=== PATIENT | male | born 1940 | race African-American/Black ===

== ENCOUNTER → 2019-06-09 | Outpatient (CLI) | payer BC, MEDICARE ==
[~2019-06-09] MED LIST: ACET325T9 PO; ACET500T33 PO; ACET500T68 PO; ALLO100T PO; AMLO10TA8 PO; AMLO5TAB10 PO; AMMO225L8 TP; AMMO226L TP; AMOX1TAB10 PO; ASPI-612 PO; ASPI-630 PO; ASPI81TA50 PO; ATOR40TA PO; ATOR40TA59 PO; ATORVASTATIN CA80 MG PO; BISA10SU4 RC; BISA10SU55 RC; CALC0.5C8 PO; CARV12.511 PO; CARV25TA2 PO; CARV3.1210 PO; CEPH250C PO; CHOL10003 PO; CHOL2000 PO; CHOL200074 PO; CLIN150C14 PO; CLON0.1T12 PO; CLOP75TA PO; CYAN-25 PO; DAPT350V IV; DIPH-121 PO; FOLI0.8T21 PO; FOLI1CAP10 PO; FURO20TA3 PO; FURO40TA4 PO; FURO80TA3 PO; GUAI-108 PO; HUM100VI5 SQ; HYDR-2761 PO; HYDR-3164 PO; INSU100I11 SQ; INSU100I16 SQ; INSU100V SQ; IPRA3AMP29 NEB; LACT1CAP19 PO; LACT1CAP48 PO; LACT1CAP6 PO; LINE600T37 PO; LISI10TA2 PO; LOSA-73 PO; MAGN400O7 PO; MERO500V15 IV; METO10TA81 PO; METO5TAB PO; OMEP20CA10 PO; OMEP20TA8 PO; OMEP40CA5 PO; ONDA4TAB12 PO; ONDA4TAB7 PO; PANT20TA2 PO; PANT40TA77 PO; PRED-220 PO; PREG25CA PO; PREG50CA PO; Pantoprazole PO; SENN-80 PO; SENN1TAB15 PO; SENN1TAB99 PO; SEVE800T9 PO; TRAM50TA PO; WARF-31 PO; WARF-78 PO; WARF2TAB PO; WARF3TAB50 PO; WARF6TAB47 PO
[2019-06-09 10:54] LABS: BILIRUBIN,URINE NEGATIVE (NEG); CLARITY,URINE TURBID; COLOR,URINE YELLOW; NITRITE,URINE NEGATIVE (NEG); PH,URINE 7.5; PROTEIN,URINE >=300 mg/dL (NEG-TRACE); UROBILINOGEN,URINE 0.2 mg/dL (0.2 mg/dL)
[2019-06-09 11:17] LABS: BACTERIA,URINE MANY /HPF (0-FEW); SQUAMOUS EPITHELIAL CELL,UR FEW /LPF; WBC,URINE TNTC /HPF (0-4)
== END | disposition home or self-care (01) ==
LOC: SPEC 10:40
PROVIDERS: ATTEND Internal Medicine
DX: I12.0 Hypertensive chronic kidney disease with stage 5 chronic kidney disease or end stage renal disease (principal); N18.6 End stage renal disease
CPT/HCPCS: 81001; 87086

== ENCOUNTER 2019-06-22 10:04 | Inpatient (IN) | payer BC, MEDICARE, OTHER ==
[~2019-06-22] VITALS: Ht 165.1 cm; Wt 82.7 kg
[~2019-06-22 10:04] MED LIST changes: -INSU100V SQ; +INSU100V6 SQ
[2019-06-22] MEDS ORDERED: IV NORMAL SALINE 1000ML BAG 1,000 ML IV SCH (10:38)
[2019-06-22] MEDS ORDERED: VANCOMYCIN 1GM IVPB FOR OMNI 250 ML IV ONE (10:45)
[2019-06-22] MEDS ORDERED: PIPERACILLIN/TAZOBACTAM 2.25 GM in IV NORMAL SALINE 50ML 50 ML IV ONE (10:45)
--- NOTE | 2019-06-22 10:54 | PHYS DOC ---
Past Medical History Past Medical History: A-Fib, Diabetes-Type II, Hypertension, Renal Failure Additional Past Medical Histor: ESRD Past Surgical History: Pacemaker Additional Past Surgical Histo: bilateral BKA, AV fistula Social History Patient lives in a care home. Adult General HPI HPI Patient is a 78-year-old male who presents to the emergency department via EMS for altered mental status. According to EMS report, the patient, usually responds by grunting to staff, was less responsive than normal today, and there is also a wound on his left BKA, where there is concern for infection. The patient is not able to provide any meaningful history, he will shake yes and no in response to some basic questions, but is not able to provide a meaningful history. Review of Systems Review of Systems Review of systems Limited secondary to patient not being able to provide a meaningful history. Per report, there has been no increasing difficulty breathing, vomiting, or noted fever, Current Medications Current Medications Current Medications Medications (Trade) Dose Ordered Sig/Mitzi Start Time Stop Time Status Last Admin Dose Admin Piperacillin Sod/ Tazobactam Sod 2.25 gm/Sodium Chloride 50 ml @ 100 mls/hr 1X ONCE 06/22/19 10:45 06/22/19 11:14 DC 06/22/19 11:55 100 MLS/HR Sodium Chloride 1,000 ml @ 100 mls/hr Q10H 06/22/19 10:38 06/22/19 20:37 06/22/19 11:55 100 MLS/HR Vancomycin HCl 250 ml @ 250 mls/hr 1X ONCE 06/22/19 10:45 06/22/19 11:44 UNV Vancomycin HCl 2 gm/Sodium Chloride 500 ml @ 250 mls/hr 1X ONCE 06/22/19 11:30 06/22/19 13:29 DC 06/22/19 12:32 250 MLS/HR Allergies Allergies Allergies Coded Allergies Type Severity Reaction Last Updated Verified No Known Drug Allergies 06/22/19 No Physical Exam Physical Exam PHYSICAL EXAM: CONSTITUTIONAL: Well developed, well nourished HEAD: normocephalic, atraumatic EENT: PERRL, EOMI. Conjunctivae normal color, sclerae non-icteric; moist mucous membranes. NECK: Supple, non-tender; no meningismus. LUNGS: Lungs CTA, breathing is mildly labored. Normal air movement. HEART: Regular rate and rhythm, no murmur CHEST: No deformity; non-tender ABDOMEN: The abdomen is soft, there is mild diffuse tenderness to palpation to the entire abdomen, without focal tenderness, rebound, or guarding , no masses or bruits. EXTREM: Normal ROM; no deformity, no calf tenderness. Weak pulses palpable in all extremities. There is no pedal edema. There is an AV fistula in the right upper extremity. There has been a BKA bilaterally. The right BKA stump is clean, on the left BKA stump laterally there is an approximately nickel sized wound, which appears to extend into the muscle, with some surrounding erythema, without active purulence. SKIN: No rash; no diaphoresis NEURO: Patient is weak, limited movement of all extremities, will shake his head or grunting yes or no to some basic questions but is not able to reliably provide a history. BACK: No CVA TTP. Current Patient Data Vital Signs Vital Signs Date Time Temp Pulse Resp B/P (MAP) Pulse Ox O2 Delivery O2 Flow Rate FiO2 06/22/19 10:54 98.1 78 16 125/64 (84) 95 Room Air 98.1 Lab Values Laboratory Tests Test 06/22/19 10:40 06/22/19 11:35 06/22/19 11:50 White Blood Count 10.5 x10^3/uL (4.0-11.0) Red Blood Count 3.54 x10^6/uL (4.30-5.70) L Hemoglobin 10.1 g/dL (13.0-17.5) L Hematocrit 31.0 % (39.0-53.0) L Mean Corpuscular Volume 88 fL (79-100) Mean Corpuscular Hemoglobin 29 pg (25-35) Mean Corpuscular Hemoglobin Concent 33 g/dL (31-37) Red Cell Distribution Width 18.6 % (11.5-14.5) H Platelet Count 407 x10^3/uL (140-400) H Neutrophils (%) (Auto) 70 % (31-73) Lymphocytes (%) (Auto) 14 % (24-48) L Monocytes (%) (Auto) 9 % (0-9) Eosinophils (%) (Auto) 6 % (0-3) H Basophils (%) (Auto) 1 % (0-3) Neutrophils # (Auto) 7.4 x10^3/uL (1.8-7.7) Lymphocytes # (Auto) 1.4 x10^3/uL (1.0-4.8) Monocytes # (Auto) 0.9 x10^3/uL (0.0-1.1) Eosinophils # (Auto) 0.7 x10^3/uL (0.0-0.7) Basophils # (Auto) 0.1 x10^3/uL (0.0-0.2) Erythrocyte Sedimentation Rate 128 (0-15) H Urine Collection Type U cath Urine Color Red Urine Clarity Turbid Urine pH Urine Specific [place] Urine Protein mg/dL (NEG-TRACE) Urine Glucose (UA) mg/dL (NEG) Urine Ketones (Stick) mg/dL (NEG) Urine Blood (NEG) Urine Nitrite (NEG) Urine Bilirubin (NEG) Urine Urobilinogen Dipstick mg/dL (0.2 mg/dL) Urine Leukocyte Esterase (NEG) Urine RBC >40 /HPF (0-2) Urine WBC Tntc /HPF (0-4) Urine Bacteria Many /HPF (0-FEW) Prothrombin Time 19.7 SEC (11.7-14.0) H Prothrombin Time INR 1.7 (0.8-1.1) H Sodium Level 141 mmol/L (136-145) Potassium Level 4.4 mmol/L (3.5-5.1) Chloride Level 96 mmol/L (98-107) L Carbon Dioxide Level 36 mmol/L (21-32) H Anion Gap 9 (6-14) Blood Urea Nitrogen 78 mg/dL (8-26) H Creatinine 7.1 mg/dL (0.7-1.3) H Estimated GFR (Cockcroft-Gault) 9.1 BUN/Creatinine Ratio 11 (6-20) Glucose Level 149 mg/dL (70-99) H Lactic Acid Level 1.3 mmol/L (0.4-2.0) Calcium Level 9.3 mg/dL (8.5-10.1) Magnesium Level 2.1 mg/dL (1.8-2.4) Total Bilirubin 0.5 mg/dL (0.2-1.0) Aspartate Amino Transferase (AST) 29 U/L (15-37) Alanine Aminotransferase (ALT) 20 U/L (16-63) Alkaline Phosphatase 162 U/L (46-116) H Troponin I Quantitative 0.293 ng/mL (0.000-0.055) C-Reactive Protein, Quantitative 185.7 mg/L (0-3.3) H Total Protein 7.1 g/dL (6.4-8.2) Albumin 2.1 g/dL (3.4-5.0) L Albumin/Globulin Ratio 0.4 (1.0-1.7) L Laboratory Tests 06/22/19 10:40 Laboratory Tests 06/22/19 11:50 EKG EKG Probable underlying atrial fibrillation at a rate of 70 beats for minute, left axis deviation, left anterior fascicular block, lateral T wave inversion, with nonspecific ST/T changes, there is no old EKG available for comparison.] Radiology/Procedures Radiology/Procedures [PROCEDURE: CT HEAD WO CONTRAST Examination: CT HEAD WO CONTRAST History: Altered mental status Comparison/Correlation: None Findings: Axial images of the head were obtained without contrast. Advanced atrophy and chronic ischemic changes white matter noted. No intracranial hemorrhage, midline shift, or mass effect. Bony structures are intact. Right sphenoid sinus opacification noted. Opacification of posterior aspect of right ethmoid air cells suggested. Cavernous carotid calcification noted. Impression: No intracranial hemorrhage. Advanced atrophy and chronic ischemic change. Chronic paranasal sinusitis. PQRS Compliance Statement: One or more of the following individualized dose reduction techniques were utilized for this examination: 1. Automated exposure control 2. Adjustment of the mA and/or kV according to patient size 3. Use of iterative reconstruction technique] PROCEDURE: PORTABLE CHEST 1V PORTABLE CHEST 1V History: Altered mental status Comparison: April 21, 2019 Findings: Enlarged cardiac silhouette, unchanged. Patchy bibasilar subsegmental atelectasis. No pleural effusion. Vascular stent projecting over the right upper chest, unchanged. Left sided pacemaker, unchanged. Impression: 1. Low lung volumes with bibasilar subsegmental atelectasis. PROCEDURE: CT ABDOMEN PELVIS WO CONTRAST Examination: CT ABDOMEN PELVIS WO CONTRAST History: Altered mental status, sepsis, abdominal tenderness Comparison/Correlation: None Findings: Axial images of the abdomen and pelvis were obtained without contrast. Sagittal and coronal reformatted images were provided. Respiratory motion limits evaluation of the lung bases. The upper extremities are besides the patient and as result associated streak artifact may limit assessment. Pacemaker lead is identified in the right ventricle. Marked coronary arterial calcification is evident. Subtle patchy interstitial infiltrates involving the posterior right lung base noted. Unenhanced liver, spleen, pancreas, and adrenal glands are unremarkable. Multiple small calculi present within the dependent aspect of the gallbladder. No biliary dilatation. Small proximal duodenal diverticulum is questioned. Left renal cysts are present. Moderate quantity of stool in the colon noted. Moderate distention of the rectum with stool noted. No inflammatory change about the cecum. Diverticulosis of the colon is evident. No extraluminal gas or bowel obstruction. No enlarged abdominal or pelvic lymph nodes. Urinary bladder is identified to have mild circumferential wall thickening and minimal surrounding stranding. Significant arterial calcification is noted involving the abdominal aorta, iliac arteries, and visualized femoral arteries. Multilevel degenerative space narrowing is noted. Impression: Cholelithiasis without findings of cholecystitis. Urinary bladder wall thickening with subtle surrounding stranding raises question of cystitis. Subtle patchy interstitial infiltrates primarily at the right lung base. PROCEDURE: TIBIA FIBULA LEFT Two-view study left tibia and fibula Clinical indications: [id number]-[id number] amputation. Possible stump infection. FINDINGS: A below the knee left leg amputation is evident. No lytic process is seen. No acute fracture or dislocation is seen. 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 Soft tissue swelling is seen. No soft tissue air is evident. Surgical clips are seen within the distal stump. Calcified atheromatous arterial disease is seen. IMPRESSION: No acute osseous abnormality. Course & Med Decision Making Course & Med Decision Making Pertinent Labs and Imaging studies reviewed. (See chart for details) [] 1:40 PM: The patient's condition remains stable. I was finally able to get a hold of the patient's PCP, whom I spoke with prior to the patient's arrival, and he will admit the patient, and requested consultation from infectious disease as well as nephrology, as the patient is due for dialysis today. Dragon Disclaimer Dragon Disclaimer This electronic medical record was generated, in whole or in part, using a voice recognition dictation system. Departure Departure Impression: Primary Impression: UTI (urinary tract infection) Additional Impressions: ESRD (end stage renal disease) Altered mental status Disposition: 09 ADMITTED INPATIENT Admitting Physician: Ronen Gonzáles Condition: GUARDED Referrals: ROENN GONZÁLES MD (PCP) Problem Qualifiers PRANAV ESTRADA MD Jun 22, 2019 10:54
[2019-06-22 11:08] LABS: BASO # 0.1 x10^3/uL (0.0-0.2); BASO % 1 % (0-3); EOS # 0.7 x10^3/uL (0.0-0.7); EOS % 6 % (0-3); HEMOGLOBIN 10.1 g/dL (13.0-17.5); LYMPH # 1.4 x10^3/uL (1.0-4.8); LYMPH % 14 % (24-48); MEAN CORPUSCULAR HEMOGLOBIN 29 pg (25-35); MEAN CORPUSCULAR HGB CONC 33 g/dL (31-37); MEAN CORPUSCULAR VOLUME 88 fL (79-100); MONO # 0.9 x10^3/uL (0.0-1.1); MONO % 9 % (0-9); NEUT # 7.4 x10^3/uL (1.8-7.7); NEUT % 70 % (31-73); PLATELET COUNT 407 x10^3/uL (140-400); RED BLOOD COUNT 3.54 x10^6/uL (4.30-5.70); RED CELL DISTRIBUTION WIDTH 18.6 % (11.5-14.5); WHITE BLOOD COUNT 10.5 x10^3/uL (4.0-11.0)
--- NOTE | 2019-06-22 11:09 | RAD ---
PORTABLE CHEST 1V History: Altered mental status Comparison: April 21, 2019 Findings: Enlarged cardiac silhouette, unchanged. Patchy bibasilar subsegmental atelectasis. No pleural effusion. Vascular stent projecting over the right upper chest, unchanged. Left sided pacemaker, unchanged. Impression: 1. Low lung volumes with bibasilar subsegmental atelectasis. Electronically signed by: Yoshi Butts DO (06/22/2019 11:06 AM) [id number]
--- NOTE | 2019-06-22 11:27 | RAD ---
Two-view study left tibia and fibula Clinical indications: [id number]-[id number] amputation. Possible stump infection. FINDINGS: A below the knee left leg amputation is evident. No lytic process is seen. No acute fracture or dislocation is seen. 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 Soft tissue swelling is seen. No soft tissue air is evident. Surgical clips are seen within the distal stump. Calcified atheromatous arterial disease is seen. IMPRESSION: No acute osseous abnormality. Electronically signed by: Leno Kovacs MD (06/22/2019 11:24 AM) [place] [id number]
[2019-06-22] MEDS ORDERED: VANCOMYCIN 2 GM in IV NORMAL SALINE 500ML BAG 500 ML IV ONE (11:30)
--- NOTE | 2019-06-22 11:30 | RAD ---
Examination: CT HEAD WO CONTRAST History: Altered mental status Comparison/Correlation: None Findings: Axial images of the head were obtained without contrast. Advanced atrophy and chronic ischemic changes white matter noted. No intracranial hemorrhage, midline shift, or mass effect. Bony structures are intact. Right sphenoid sinus opacification noted. Opacification of posterior aspect of right ethmoid air cells suggested. Cavernous carotid calcification noted. Impression: No intracranial hemorrhage. Advanced atrophy and chronic ischemic change. Chronic paranasal sinusitis. PQRS Compliance Statement: One or more of the following individualized dose reduction techniques were utilized for this examination: 1. Automated exposure control 2. Adjustment of the mA and/or kV according to patient size 3. Use of iterative reconstruction technique Electronically signed by: Jarred Moy MD (06/22/2019 11:27 AM) [facility]
--- NOTE | 2019-06-22 11:39 | RAD ---
Examination: CT ABDOMEN PELVIS WO CONTRAST History: Altered mental status, sepsis, abdominal tenderness Comparison/Correlation: None Findings: Axial images of the abdomen and pelvis were obtained without contrast. Sagittal and coronal reformatted images were provided. Respiratory motion limits evaluation of the lung bases. The upper extremities are besides the patient and as result associated streak artifact may limit assessment. Pacemaker lead is identified in the right ventricle. Marked coronary arterial calcification is evident. Subtle patchy interstitial infiltrates involving the posterior right lung base noted. Unenhanced liver, spleen, pancreas, and adrenal glands are unremarkable. Multiple small calculi present within the dependent aspect of the gallbladder. No biliary dilatation. Small proximal duodenal diverticulum is questioned. Left renal cysts are present. Moderate quantity of stool in the colon noted. Moderate distention of the rectum with stool noted. No inflammatory change about the cecum. Diverticulosis of the colon is evident. No extraluminal gas or bowel obstruction. No enlarged abdominal or pelvic lymph nodes. Urinary bladder is identified to have mild circumferential wall thickening and minimal surrounding stranding. Significant arterial calcification is noted involving the abdominal aorta, iliac arteries, and visualized femoral arteries. Multilevel degenerative space narrowing is noted. Impression: Cholelithiasis without findings of cholecystitis. Urinary bladder wall thickening with subtle surrounding stranding raises question of cystitis. Subtle patchy interstitial infiltrates primarily at the right lung base. PQRS Compliance Statement: One or more of the following individualized dose reduction techniques were utilized for this examination: 1. Automated exposure control 2. Adjustment of the mA and/or kV according to patient size 3. Use of iterative reconstruction technique Electronically signed by: Jarred Moy MD (06/22/2019 11:36 AM) [facility]
--- NOTE | 2019-06-22 11:47 | EKG ---
[facility] [address] [place] [address] Test Date: 2019-06-22 Test Time: 10:14:58 Pat Name: BARNEY GUZMAN Department: Room: Gender: M Managed Care Nurse: : 1940 Requested By: PRANAV ESTRADA Order Number: [id number] Reading MD: Ananda Cody MD Measurements Intervals [place] Rate: 69 P: MD: QRS: -52 QRSD: 110 T: 168 QT: 392 QTc: 426 Interpretive Statements ATRIAL FIBRILLATION ABNORMAL LEFT AXIS DEVIATION LEFT ANTERIOR FASCICULAR BLOCK LVH WITH REPOLARIZATION ABNORMALITY ABNORMAL ECG Electronically Signed On 07-12-2019 13:37:53 CDT by Ananda Cody MD
[2019-06-22 12:01] LABS: CLARITY,URINE TURBID; COLOR,URINE RED
[2019-06-22 12:04] LABS: RBC,URINE >40 /HPF (0-2)
[2019-06-22 12:05] LABS: BACTERIA,URINE MANY /HPF (0-FEW); WBC,URINE TNTC /HPF (0-4)
[2019-06-22 12:21] LABS: PROTHROMBIN TIME PATIENT 19.7 SEC (11.7-14.0)
[2019-06-22 12:30] LABS: CALCIUM 9.3 mg/dL (8.5-10.1); CREATININE 7.1 mg/dL (0.7-1.3); GFR 9.1; POTASSIUM 4.4 mmol/L (3.5-5.1)
[2019-06-22 12:38] LABS: ALBUMIN 2.1 g/dL (3.4-5.0); ALBUMIN/GLOBULIN RATIO 0.4 (1.0-1.7); C-REACTIVE PROTEIN 185.7 mg/L (0-3.3); MAGNESIUM 2.1 mg/dL (1.8-2.4); TOTAL BILIRUBIN 0.5 mg/dL (0.2-1.0); TOTAL PROTEIN 7.1 g/dL (6.4-8.2)
[2019-06-22] MEDS ORDERED: DIALYSIS PATIENT. MC PRN ×2 (16:30)
--- NOTE | 2019-06-22 17:20 | PDOC2 ---
CONSULT Date of Consult Date of Consult DATE: 06/22/19 TIME: 17:14 Reason for Consult Reason for Consult: ESRD Referring Physician Referring Physician: BENJAMÍN Identification/Chief Complaint Chief Complaint CONFUSION Source Source: Chart review History of Present Illness Reason for Visit: THIS IS A 78 YR OLD ESRD PT WITH CONFUSION. HE HAS OP HD ON MWF. UA IS TURBID AND CLEARLY INFECTED. ALSO NOTED TO HAVE LEUCOCYTOSIS AND HE HAS A RECENT LEFT BKA AND INFECTION RELATED TO THAT. LABS ARE C/W HIS ESRD STATUS. HE IS USUALLY ALERT AND ORIENTED AT BASELINE BUT HAS HAD A SIGNIFICANT DECLINE IN HIS OVERALL HEALTH OVER THE LAST ONE YEAR. BRAIN IMAGING NEG FOR ANYTHING ACUTE. ESRD IS DUE TO DM II AND HTN HX Past Medical History Cardiovascular: HTN GI: Constipation Heme/Onc: Anemia NOS Psych: Depression Renal/: Chronic renal failure Endocrine: Diabetes, Hyperparathyroidism Past Surgical History Past Surgical History AV ACCESS. HX OF TDC. HX OF LE BKA Family History Family History: No Significant Social History No ALCOHOL: none Drugs: None Lives: Group Home Current Problem List Problem List Problems Medical Problems: (1) Altered mental status Status: Acute (2) ESRD (end stage renal disease) Status: Acute (3) UTI (urinary tract infection) Status: Acute Current Medications Current Medications Current Medications Vancomycin HCl 250 ml @ 250 mls/hr 1X ONCE IV ; Start 06/22/19 at 10:45; Stop 06/22/19 at 11:44; Status UNV Piperacillin Sod/ Tazobactam Sod 2.25 gm/Sodium Chloride 50 ml @ 100 mls/hr 1X ONCE IV Last administered on 06/22/19at 11:55; Start 06/22/19 at 10:45; Stop 06/22/19 at 11:14; Status DC Sodium Chloride 1,000 ml @ 100 mls/hr Q10H IV Last administered on 06/22/19at 11:55; Start 06/22/19 at 10:38; Stop 06/22/19 at 20:37 Vancomycin HCl 2 gm/Sodium Chloride 500 ml @ 250 mls/hr 1X ONCE IV Last administered on 06/22/19at 12:32; Start 06/22/19 at 11:30; Stop 06/22/19 at 13:29; Status DC Info (PHARMACY MONITORING -- do not chart) 1 each PRN DAILY PRN MC SEE COMMENTS; Start 06/22/19 at 16:30 Info (PHARMACY MONITORING -- do not chart) 1 each PRN DAILY PRN MC SEE COMMENTS; Start 06/22/19 at 16:30; Status UNV Allergies Allergies: Coded Allergies: No Known Drug Allergies (Unverified , 06/22/19) ROS Review of System UNABLE TO OBTAIN Physical Exam General: No acute distress HEENT: Atraumatic, Mucous membr. moist/pink Lungs: Clear to auscultation Heart: Regular rate, Normal S1, Normal S2 Abdomen: Normal bowel sounds, Soft Extremities: No edema Skin: Other (BKA SITE DRESSING DRAINAGE) MUSCULOSKELETAL: No deformity Vitals VITALS Vital Signs Date Time Temp Pulse Resp B/P (MAP) Pulse Ox O2 Delivery O2 Flow Rate FiO2 06/22/19 10:54 98.1 78 16 125/64 (84) 95 Room Air 98.1 Labs Labs Laboratory Tests Test 06/22/19 10:40 06/22/19 11:35 06/22/19 11:50 06/22/19 16:05 White Blood Count 10.5 x10^3/uL (4.0-11.0) Red Blood Count 3.54 x10^6/uL (4.30-5.70) Hemoglobin 10.1 g/dL (13.0-17.5) Hematocrit 31.0 % (39.0-53.0) Mean Corpuscular Volume 88 fL (79-100) Mean Corpuscular Hemoglobin 29 pg (25-35) Mean Corpuscular Hemoglobin Concent 33 g/dL (31-37) Red Cell Distribution Width 18.6 % (11.5-14.5) Platelet Count 407 x10^3/uL (140-400) Neutrophils (%) (Auto) 70 % (31-73) Lymphocytes (%) (Auto) 14 % (24-48) Monocytes (%) (Auto) 9 % (0-9) Eosinophils (%) (Auto) 6 % (0-3) Basophils (%) (Auto) 1 % (0-3) Neutrophils # (Auto) 7.4 x10^3/uL (1.8-7.7) Lymphocytes # (Auto) 1.4 x10^3/uL (1.0-4.8) Monocytes # (Auto) 0.9 x10^3/uL (0.0-1.1) Eosinophils # (Auto) 0.7 x10^3/uL (0.0-0.7) Basophils # (Auto) 0.1 x10^3/uL (0.0-0.2) Erythrocyte Sedimentation Rate 128 (0-15) Urine Collection Type U cath Urine Color Red Urine Clarity Turbid Urine pH Urine Specific [place] Urine Protein mg/dL (NEG-TRACE) Urine Glucose (UA) mg/dL (NEG) Urine Ketones (Stick) mg/dL (NEG) Urine Blood (NEG) Urine Nitrite (NEG) Urine Bilirubin (NEG) Urine Urobilinogen Dipstick mg/dL (0.2 mg/dL) Urine Leukocyte Esterase (NEG) Urine RBC >40 /HPF (0-2) Urine WBC Tntc /HPF (0-4) Urine Bacteria Many /HPF (0-FEW) Prothrombin Time 19.7 SEC (11.7-14.0) Prothromb Time International Ratio 1.7 (0.8-1.1) Sodium Level 141 mmol/L (136-145) Potassium Level 4.4 mmol/L (3.5-5.1) Chloride Level 96 mmol/L (98-107) Carbon Dioxide Level 36 mmol/L (21-32) Anion Gap 9 (6-14) Blood Urea Nitrogen 78 mg/dL (8-26) Creatinine 7.1 mg/dL (0.7-1.3) Estimated GFR (Cockcroft-Gault) 9.1 BUN/Creatinine Ratio 11 (6-20) Glucose Level 149 mg/dL (70-99) Lactic Acid Level 1.3 mmol/L (0.4-2.0) Calcium Level 9.3 mg/dL (8.5-10.1) Magnesium Level 2.1 mg/dL (1.8-2.4) Total Bilirubin 0.5 mg/dL (0.2-1.0) Aspartate Amino Transf (AST/SGOT) 29 U/L (15-37) Alanine Aminotransferase (ALT/SGPT) 20 U/L (16-63) Alkaline Phosphatase 162 U/L (46-116) Troponin I Quantitative 0.293 ng/mL (0.000-0.055) 0.217 ng/mL (0.000-0.055) C-Reactive Protein, Quantitative 185.7 mg/L (0-3.3) Total Protein 7.1 g/dL (6.4-8.2) Albumin 2.1 g/dL (3.4-5.0) Albumin/Globulin Ratio 0.4 (1.0-1.7) Laboratory Tests Test 06/22/19 10:40 06/22/19 11:35 06/22/19 11:50 06/22/19 16:05 White Blood Count 10.5 x10^3/uL (4.0-11.0) Red Blood Count 3.54 x10^6/uL (4.30-5.70) Hemoglobin 10.1 g/dL (13.0-17.5) Hematocrit 31.0 % (39.0-53.0) Mean Corpuscular Volume 88 fL (79-100) Mean Corpuscular Hemoglobin 29 pg (25-35) Mean Corpuscular Hemoglobin Concent 33 g/dL (31-37) Red Cell Distribution Width 18.6 % (11.5-14.5) Platelet Count 407 x10^3/uL (140-400) Neutrophils (%) (Auto) 70 % (31-73) Lymphocytes (%) (Auto) 14 % (24-48) Monocytes (%) (Auto) 9 % (0-9) Eosinophils (%) (Auto) 6 % (0-3) Basophils (%) (Auto) 1 % (0-3) Neutrophils # (Auto) 7.4 x10^3/uL (1.8-7.7) Lymphocytes # (Auto) 1.4 x10^3/uL (1.0-4.8) Monocytes # (Auto) 0.9 x10^3/uL (0.0-1.1) Eosinophils # (Auto) 0.7 x10^3/uL (0.0-0.7) Basophils # (Auto) 0.1 x10^3/uL (0.0-0.2) Erythrocyte Sedimentation Rate 128 (0-15) Urine Collection Type U cath Urine Color Red Urine Clarity Turbid Urine pH Urine Specific [place] Urine Protein mg/dL (NEG-TRACE) Urine Glucose (UA) mg/dL (NEG) Urine Ketones (Stick) mg/dL (NEG) Urine Blood (NEG) Urine Nitrite (NEG) Urine Bilirubin (NEG) Urine Urobilinogen Dipstick mg/dL (0.2 mg/dL) Urine Leukocyte Esterase (NEG) Urine RBC >40 /HPF (0-2) Urine WBC Tntc /HPF (0-4) Urine Bacteria Many /HPF (0-FEW) Prothrombin Time 19.7 SEC (11.7-14.0) Prothromb Time International Ratio 1.7 (0.8-1.1) Sodium Level 141 mmol/L (136-145) Potassium Level 4.4 mmol/L (3.5-5.1) Chloride Level 96 mmol/L (98-107) Carbon Dioxide Level 36 mmol/L (21-32) Anion Gap 9 (6-14) Blood Urea Nitrogen 78 mg/dL (8-26) Creatinine 7.1 mg/dL (0.7-1.3) Estimated GFR (Cockcroft-Gault) 9.1 BUN/Creatinine Ratio 11 (6-20) Glucose Level 149 mg/dL (70-99) Lactic Acid Level 1.3 mmol/L (0.4-2.0) Calcium Level 9.3 mg/dL (8.5-10.1) Magnesium Level 2.1 mg/dL (1.8-2.4) Total Bilirubin 0.5 mg/dL (0.2-1.0) Aspartate Amino Transf (AST/SGOT) 29 U/L (15-37) Alanine Aminotransferase (ALT/SGPT) 20 U/L (16-63) Alkaline Phosphatase 162 U/L (46-116) Troponin I Quantitative 0.293 ng/mL (0.000-0.055) 0.217 ng/mL (0.000-0.055) C-Reactive Protein, Quantitative 185.7 mg/L (0-3.3) Total Protein 7.1 g/dL (6.4-8.2) Albumin 2.1 g/dL (3.4-5.0) Albumin/Globulin Ratio 0.4 (1.0-1.7) Assessment/Plan Assessment/Plan IMP UTI ? INFECTED BKA STUMP ANEMIA DM II HTN ESRD MET ENCEPHALOPATHY PLAN NEEDS ANTIBIOTICS HD TODAY UF TO DW SHERYL WILL FOLLOW NANCY LIU MD Jun 22, 2019 17:20
[2019-06-22] MEDS ORDERED: ONDANSETRON PF 4 MG/2 ML VIAL. IV PRN (17:30)
[2019-06-22] MEDS ORDERED: PIP/TAZO PER PHARMACY MC PRN (17:30)
[2019-06-22] MEDS ORDERED: ACETAMINOPHEN 325 MG TABLET. PO PRN (17:30)
--- NOTE | 2019-06-22 17:41 | PDOC ---
Provider Note Provider Note history and physical dictated # [id number] SAM OLMOS MD Jun 22, 2019 17:41
[2019-06-22] MEDS: VANCOMYCIN PER PHARMACY MC PRN (17:46)
[2019-06-22 20:32] VITALS: BP 112/60
[2019-06-22] MEDS ORDERED: HEPARIN for SUB-Q USE 5,000 UNIT/ML VIAL. SQ SCH (21:00)
[2019-06-22] MEDS: IV 1/2 NORMAL SALINE 1,000 ML IV SCH (21:27)
[2019-06-22] MEDS: ATORVASTATIN CALCIUM 40 MG TABLET. PO SCH (21:28)
[2019-06-22] MEDS: PIPERACILLIN/TAZOBACTAM 2.25 GM in IV NORMAL SALINE 50ML 50 ML IV SCH (21:28)
--- NOTE | 2019-06-22 22:06 | HP ---
ADMIT DATE: 06/22/2019 LOCATION: He is in room 674. HISTORY OF PRESENT ILLNESS: The patient is a 78-year-old -[place] male, resident of a [facility], who is on hemodialysis Mondays, Wednesdays, and Fridays and has a history of diabetes mellitus type 2, peripheral arterial disease, chronic atrial fibrillation, and has had bilateral below-knee amputations. He had a left below-knee amputation in 04/2019 for nonhealing left lower extremity wound. The patient was sent to the [facility] Emergency Room due to altered mental status. He is usually able to maintain a conversation. In fact, I saw him last in [facility], he was able to converse and talking, and was doing fine. Today, I received a phone call from the wound care personnel that said that the patient was started on Augmentin recently and has an area of bogginess and softness involving the left below-knee amputation and there is possibility of an infection in that area. The patient was then sent to the [facility] Emergency Room where he was noted to have cloudy turbid urine and pyuria, and received also IV vancomycin and Zosyn in the Emergency Room. Blood and urine cultures were ordered. CAT scan of the head was negative. He had a CAT scan of the abdomen and pelvis, which showed some evidence of cystitis and cholelithiasis without acute cholecystitis. Also had an x-ray of his left tibia and fibula, which showed no acute abnormality. He had a chest x-ray, which showed no evidence of a lung infiltrate. He had some bibasilar subsegmental atelectasis. He was therefore admitted for further evaluation for his altered mental status, urinary tract infection and possible left below-knee amputation stump infection. ALLERGIES AND INTOLERANCES: None. MEDICATIONS: After look at the list from the [facility]; apparently, he is on allopurinol 100 mg every day, atorvastatin 40 mg at bedtime, Plavix 75 mg every day, vitamin B12 of 1000 mcg every day, Zofran 4 mg p.o. every 6 hours p.r.n., Protonix 40 mg every day, Nephro-Judah 1 every day, and I believe he is on Humalog insulin sliding scale before meals also. PAST MEDICAL HISTORY: Significant for a left below-knee amputation in 04/2019. He also has a previous right below-knee amputation. He has a history of severe peripheral arterial disease in the lower extremities. He also has a history of end-stage renal disease, on hemodialysis. He is on dialysis Mondays, Wednesdays and Fridays. Diabetes mellitus type 2 with peripheral neuropathy. He has anemia of chronic disease. Morbid obesity. 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 He also had a stent placed to his left femoral artery in the past. He has an amputation of left great toe in the past prior to his left below-knee amputation. He has a history of hyperlipidemia. SOCIAL HISTORY: He does not drink alcohol nor does he smoke cigarettes. Resides in a [facility]. FAMILY HISTORY: Noncontributory. REVIEW OF SYSTEMS: Unobtainable due to his altered mental status. PHYSICAL EXAMINATION: GENERAL: He was seen during hemodialysis. VITAL SIGNS: His temperature is 98.1 degrees, pulse 78, respiratory rate 16, blood pressure 125/64, and oxygen saturation 95% on room air. HEENT: Eyes are closed. He nods his head when I ask him questions, but did not talk to me. Mouth is symmetrical. NECK: No cervical lymphadenopathy. HEART: Reveals an S1, S2. There is no S3 or murmur. LUNGS: Clear. CHEST: He has got a shunt in the right upper extremity. He is currently receiving hemodialysis. ABDOMEN: Soft, nontender, obese. EXTREMITIES: Lower extremities; he has got bilateral prosthetic limb protectors. I did not look at his wound as he is currently being hemodialyzed. SKIN: No rashes. LABORATORY DATA: Review of his laboratory tests; his white count is 10.5, hemoglobin 10.1 with a platelet count of 407,000, and 70 polys and 14 lymphocytes. INR is 1.7. Sodium 141, potassium 4.4, chloride 96, total CO2 was 36. Blood sugar was 149. The magnesium was 2.1. Liver enzymes were okay. Alkaline phosphatase 162. Troponin level 0.29 and 0.21. His C-reactive protein was 185.7, albumin 2.1. Urinalysis showed too numerous to count white cells and greater than 40 red blood cells. Sed rate, by the way, was 128. DIAGNOSTIC DATA: CAT scan of the head showed no acute abnormality. He has got advanced atrophy noted, chronic ischemic changes, chronic paranasal sinusitis. He had opacification of the right sphenoid sinus and some opacification of the posterior aspect of the right ethmoid sinus. EKG showed atrial fibrillation with left axis deviation, left anterior hemiblock and nonspecific ST-T wave changes. ASSESSMENT: 1. Altered mental status, most likely secondary to metabolic encephalopathy. 2. Pyuria, consistent with urinary tract infection. 3. Bilateral below-knee amputation. 4. Possible left below-knee amputation stump wound infection. 5. Diabetes mellitus type 2. 6. Peripheral arterial disease. 7. End-stage renal disease, on hemodialysis. 8. Chronic atrial fibrillation. 9. Severe protein-calorie malnutrition. 10. Anemia of chronic disease. PLAN: At this time is to consult Dr. Murguia who has already seen the patient for Nephrology. We will also consult Dr. Joselito Lindsay for Infectious Disease. Consult Dr. eCja for possible left below-knee amputation stump infection, and we will also consult Dr. Thornton for altered mental status. We will obtain an MRI of the brain and also MRI of the left below-knee amputation stump site. We will continue with IV vancomycin and IV Zosyn per the pharmacist. We will keep him n.p.o. until he is alert enough to eat and start him on some IV fluids at a low rate at 40 mL an hour and can check his fingerstick blood sugars every 6 hours. Recheck his labs tomorrow. SAM OLMOS MD DR: JULIO/lise JOB#: [id number] / [id number]
[2019-06-22 23:48] VITALS: BP 113/56
[2019-06-23 03:48] VITALS: BP 103/57
[2019-06-23 04:36] LABS: BASO # 0.1 x10^3/uL (0.0-0.2); BASO % 1 % (0-3); EOS # 0.6 x10^3/uL (0.0-0.7); EOS % 7 % (0-3); HEMATOCRIT 33.3 % (39.0-53.0); HEMOGLOBIN 10.9 g/dL (13.0-17.5); LYMPH # 1.5 x10^3/uL (1.0-4.8); LYMPH % 15 % (24-48); MEAN CORPUSCULAR HEMOGLOBIN 29 pg (25-35); MEAN CORPUSCULAR HGB CONC 33 g/dL (31-37); MEAN CORPUSCULAR VOLUME 89 fL (79-100); MONO % 10 % (0-9); NEUT # 6.6 x10^3/uL (1.8-7.7); NEUT % 67 % (31-73); PLATELET COUNT 412 x10^3/uL (140-400); RED BLOOD COUNT 3.76 x10^6/uL (4.30-5.70); RED CELL DISTRIBUTION WIDTH 18.6 % (11.5-14.5); WHITE BLOOD COUNT 9.8 x10^3/uL (4.0-11.0)
[2019-06-23 05:02] LABS: CALCIUM 9.2 mg/dL (8.5-10.1); CREATININE 4.4 mg/dL (0.7-1.3); GFR 15.8; POTASSIUM 4.2 mmol/L (3.5-5.1)
[2019-06-23] MEDS: PIPERACILLIN/TAZOBACTAM 2.25 GM in IV NORMAL SALINE 50ML 50 ML IV SCH ×3 (05:36→21:58)
[2019-06-23 07:30] VITALS: BP 114/62
[2019-06-23] MEDS: PANTOPRAZOLE 40 MG TABLET.DR. PO SCH (07:30)
[2019-06-23] MEDS: INSULIN LISPRO 300 UNITS/3 ML VIAL. SQ SCH ×3 (08:00→17:00)
[2019-06-23] MEDS: CLOPIDOGREL BISULFATE 75 MG TABLET PO SCH (08:00)
[2019-06-23] MEDS ORDERED: HEPARIN for IV BOLUS 10,000 UNIT/10 ML VIAL. IV PRN (08:30)
[2019-06-23] MEDS ORDERED: HEPARIN 25,000UTS/500ML PREMIX 500 ML IV PRN (08:30)
[2019-06-23] MEDS: ALLOPURINOL 100 MG TABLET. PO SCH (09:00)
[2019-06-23] MEDS: FOLIC/VIT B COMP W-C (RENAL) TABLET. PO SCH (09:00)
[2019-06-23] MEDS: CYANOCOBALAMIN (VITAMIN B-12) 1,000 MCG TABLET. PO SCH (09:00)
[2019-06-23 09:05] LABS: CHOLESTEROL/HDL RATIO 4.4
--- NOTE | 2019-06-23 09:16 | PDOC2 ---
CONSULT Date of Consult Date of Consult DATE: 06/23/19 TIME: 08:59 Reason for Consult Reason for Consult: Left BKA stump wound Referring Physician Referring Physician: Dr. Gonzáles Identification/Chief Complaint Chief Complaint Altered mental status, urinary tract infection, left below-knee stump wound Source Source: Chart review, Patient History of Present Illness Reason for Visit: This is a pleasant 78-year-old male who presented with altered mental status and urinary tract infection. Currently the patient is alert and oriented to person and place. In addition patient has a left below-knee amputation stump wound. Patient has remote history of right below-knee amputation on March 12, 2019 and left below-knee amputation on May 05, 2019. He was recently seen in our office for left BKA stump wound. The patient did not tolerate bedside debridement in the office so plan at that time was to treat the patient with by mouth Augmentin and local chemical debridement in order to place wound vac in the near future. X-ray of his tibia and fibula demonstrate no osseous abnormality or soft tissue air. The patient has been started on IV vancomycin and Zosyn. Infectious disease has been consulted. Past Medical History Cardiovascular: HTN GI: Constipation Heme/Onc: Anemia NOS Psych: Depression Renal/: Chronic renal failure Endocrine: Diabetes, Hyperparathyroidism Past Surgical History Past Surgical History: Other (bilateral below-knee amputations) Family History Family History: No Significant Social History No ALCOHOL: none Drugs: None Lives: Detention Current Problem List Problem List Problems Medical Problems: (1) Altered mental status Status: Acute (2) ESRD (end stage renal disease) Status: Acute (3) UTI (urinary tract infection) Status: Acute Current Medications Current Medications Current Medications Vancomycin HCl 250 ml @ 250 mls/hr 1X ONCE IV ; Start 06/22/19 at 10:45; Stop 06/22/19 at 11:44; Status UNV Piperacillin Sod/ Tazobactam Sod 2.25 gm/Sodium Chloride 50 ml @ 100 mls/hr 1X ONCE IV Last administered on 06/22/19at 11:55; Start 06/22/19 at 10:45; Stop 06/22/19 at 11:14; Status DC Sodium Chloride 1,000 ml @ 100 mls/hr Q10H IV Last administered on 06/22/19at 11:55; Start 06/22/19 at 10:38; Stop 06/22/19 at 20:37; Status DC Vancomycin HCl 2 gm/Sodium Chloride 500 ml @ 250 mls/hr 1X ONCE IV Last administered on 06/22/19at 12:32; Start 06/22/19 at 11:30; Stop 06/22/19 at 13:29; Status DC Info (PHARMACY MONITORING -- do not chart) 1 each PRN DAILY PRN MC SEE COMMENTS; Start 06/22/19 at 16:30 Info (PHARMACY MONITORING -- do not chart) 1 each PRN DAILY PRN MC SEE COMMENTS; Start 06/22/19 at 16:30; Status UNV Sodium Chloride 1,000 ml @ 40 mls/hr Q24H IV Last administered on 06/22/19at 21:37; Start 06/22/19 at 17:30 Vancomycin HCl (Vanco Per Pharmacy) 1 each PRN DAILY PRN MC SEE COMMENTS Last administered on 06/22/19at 17:50; Start 06/22/19 at 17:30 Piperacillin Sod/ Tazobactam Sod (Zosyn Per Pharmacy) 1 each PRN DAILY PRN MC SEE COMMENTS; Start 06/22/19 at 17:30 Acetaminophen (Tylenol) 650 mg PRN Q6HRS PRN PO MILD PAIN / TEMP; Start 06/22/19 at 17:30 Ondansetron HCl (Zofran) 4 mg PRN Q6HRS PRN IV NAUSEA/VOMITING; Start 06/22/19 at 17:30 Clopidogrel Bisulfate (Plavix) 75 mg DAILYWBKFT PO ; Start 06/23/19 at 08:00 Vitamin B Complex/ Vitamin C (Rosalie-Judah) 1 tab DAILY PO ; Start 06/23/19 at 0 9:00 Allopurinol (Zyloprim) 100 mg DAILY PO ; Start 06/23/19 at 09:00 Atorvastatin Calcium (Lipitor) 40 mg QHS PO Last administered on 06/22/19at 21:37; Start 06/22/19 at 21:00 Pantoprazole Sodium (Protonix) 40 mg DAILYAC PO ; Start 06/23/19 at 07:30 Cyanocobalamin (Vitamin B-12) 1,000 mcg DAILY PO ; Start 06/23/19 at 09:00 Piperacillin Sod/ Tazobactam Sod 2.25 gm/Sodium Chloride 50 ml @ 100 mls/hr Q8HRS IV Last administered on 06/23/19at 05:36; Start 06/22/19 at 21:00 Heparin Sodium (Porcine) (Heparin Sodium) 5,000 unit BID SQ Last administered on 06/22/19at 21:37; Start 06/22/19 at 21:00; Stop 06/23/19 at 08:23; Status DC Insulin Human Lispro (HumaLOG) 0-6 UNITS BG 400-49... TIDWMEALS SQ ; Start 06/23/19 at 08:00 Vancomycin HCl (Vancomycin Random Level) 1 each 1X ONCE MC ; Start 06/24/19 at 06:00; Stop 06/24/19 at 06:01 Heparin Sodium/ Dextrose 500 ml @ 19.3 mls/hr CONT PRN IV SEE I/O RECORD; Start 06/23/19 at 08:30 Heparin Sodium (Porcine) (Heparin Sodium) 2,000 unit PRN Q6HRS PRN IV FOR UFH LEVEL LESS THAN 0.2; Start 06/23/19 at 08:30 Allergies Allergies: Coded Allergies: No Known Drug Allergies (Unverified , 06/22/19) ROS Review of System Constitutional: Positive for low grade temperature elevation. Respiratory: No cough or sputum production. Cardiovascular: No chest pain, palpitations or peripheral edema. Gastrointestinal: No abdominal pain, nausea, constipation or diarrhea. Integumentary/breast: No rash, or rhinitis or skin changes. Musculoskeletal: No arthralgia or myalgias. Neurological: No gross deficits, altered mental status upon admission. All other reviews systems negative except history of present illness. Physical Exam Physical Exam Gen.: Alert and oriented �2. Cardiac: HRR Lungs: CTA, nonlabored respirations. Abdomen: Soft, nontender, nondistended, no palpable masses. Obese. Extremities: Weakly palpable bilateral femoral pulses. Skin: Well-healed right below-knee amputation without areas of breakdown. Left below-knee amputation still has some eschar along the incision medially and a large open area laterally. This area is soft unable to palpate bone. No drainage or bogginess. Skin excoriation bilateral groins. Neurological: Sensation intact bilateral lower extremities, Vitals VITALS Vital Signs Date Time Temp Pulse Resp B/P (MAP) Pulse Ox O2 Delivery O2 Flow Rate FiO2 06/23/19 03:48 99.5 79 16 103/57 (72) 93 Room Air 99.5 Labs Labs Laboratory Tests Test 06/22/19 10:40 06/22/19 11:35 06/22/19 11:50 06/22/19 16:05 White Blood Count 10.5 x10^3/uL (4.0-11.0) Red Blood Count 3.54 x10^6/uL (4.30-5.70) Hemoglobin 10.1 g/dL (13.0-17.5) Hematocrit 31.0 % (39.0-53.0) Mean Corpuscular Volume 88 fL (79-100) Mean Corpuscular Hemoglobin 29 pg (25-35) Mean Corpuscular Hemoglobin Concent 33 g/dL (31-37) Red Cell Distribution Width 18.6 % (11.5-14.5) Platelet Count 407 x10^3/uL (140-400) Neutrophils (%) (Auto) 70 % (31-73) Lymphocytes (%) (Auto) 14 % (24-48) Monocytes (%) (Auto) 9 % (0-9) Eosinophils (%) (Auto) 6 % (0-3) Basophils (%) (Auto) 1 % (0-3) Neutrophils # (Auto) 7.4 x10^3/uL (1.8-7.7) Lymphocytes # (Auto) 1.4 x10^3/uL (1.0-4.8) Monocytes # (Auto) 0.9 x10^3/uL (0.0-1.1) Eosinophils # (Auto) 0.7 x10^3/uL (0.0-0.7) Basophils # (Auto) 0.1 x10^3/uL (0.0-0.2) Erythrocyte Sedimentation Rate 128 (0-15) Urine Collection Type U cath Urine Color Red Urine Clarity Turbid Urine pH Urine Specific [place] Urine Protein mg/dL (NEG-TRACE) Urine Glucose (UA) mg/dL (NEG) Urine Ketones (Stick) mg/dL (NEG) Urine Blood (NEG) Urine Nitrite (NEG) Urine Bilirubin (NEG) Urine Urobilinogen Dipstick mg/dL (0.2 mg/dL) Urine Leukocyte Esterase (NEG) Urine RBC >40 /HPF (0-2) Urine WBC Tntc /HPF (0-4) Urine Bacteria Many /HPF (0-FEW) Prothrombin Time 19.7 SEC (11.7-14.0) Prothromb Time International Ratio 1.7 (0.8-1.1) Sodium Level 141 mmol/L (136-145) Potassium Level 4.4 mmol/L (3.5-5.1) Chloride Level 96 mmol/L (98-107) Carbon Dioxide Level 36 mmol/L (21-32) Anion Gap 9 (6-14) Blood Urea Nitrogen 78 mg/dL (8-26) Creatinine 7.1 mg/dL (0.7-1.3) Estimated GFR (Cockcroft-Gault) 9.1 BUN/Creatinine Ratio 11 (6-20) Glucose Level 149 mg/dL (70-99) Lactic Acid Level 1.3 mmol/L (0.4-2.0) Calcium Level 9.3 mg/dL (8.5-10.1) Magnesium Level 2.1 mg/dL (1.8-2.4) Total Bilirubin 0.5 mg/dL (0.2-1.0) Aspartate Amino Transf (AST/SGOT) 29 U/L (15-37) Alanine Aminotransferase (ALT/SGPT) 20 U/L (16-63) Alkaline Phosphatase 162 U/L (46-116) Troponin I Quantitative 0.293 ng/mL (0.000-0.055) 0.217 ng/mL (0.000-0.055) C-Reactive Protein, Quantitative 185.7 mg/L (0-3.3) Total Protein 7.1 g/dL (6.4-8.2) Albumin 2.1 g/dL (3.4-5.0) Albumin/Globulin Ratio 0.4 (1.0-1.7) Test 06/22/19 21:45 06/23/19 03:20 06/23/19 03:25 Troponin I Quantitative 0.191 ng/mL (0.000-0.055) Sodium Level 142 mmol/L (136-145) Potassium Level 4.2 mmol/L (3.5-5.1) Chloride Level 97 mmol/L (98-107) Carbon Dioxide Level 35 mmol/L (21-32) Anion Gap 10 (6-14) Blood Urea Nitrogen 36 mg/dL (8-26) Creatinine 4.4 mg/dL (0.7-1.3) Estimated GFR (Cockcroft-Gault) 15.8 Glucose Level 88 mg/dL (70-99) Calcium Level 9.2 mg/dL (8.5-10.1) White Blood Count 9.8 x10^3/uL (4.0-11.0) Red Blood Count 3.76 x10^6/uL (4.30-5.70) Hemoglobin 10.9 g/dL (13.0-17.5) Hematocrit 33.3 % (39.0-53.0) Mean Corpuscular Volume 89 fL (79-100) Mean Corpuscular Hemoglobin 29 pg (25-35) Mean Corpuscular Hemoglobin Concent 33 g/dL (31-37) Red Cell Distribution Width 18.6 % (11.5-14.5) Platelet Count 412 x10^3/uL (140-400) Neutrophils (%) (Auto) 67 % (31-73) Lymphocytes (%) (Auto) 15 % (24-48) Monocytes (%) (Auto) 10 % (0-9) Eosinophils (%) (Auto) 7 % (0-3) Basophils (%) (Auto) 1 % (0-3) Neutrophils # (Auto) 6.6 x10^3/uL (1.8-7.7) Lymphocytes # (Auto) 1.5 x10^3/uL (1.0-4.8) Monocytes # (Auto) 1.0 x10^3/uL (0.0-1.1) Eosinophils # (Auto) 0.6 x10^3/uL (0.0-0.7) Basophils # (Auto) 0.1 x10^3/uL (0.0-0.2) Laboratory Tests Test 06/22/19 10:40 06/22/19 11:35 06/22/19 11:50 06/22/19 16:05 White Blood Count 10.5 x10^3/uL (4.0-11.0) Red Blood Count 3.54 x10^6/uL (4.30-5.70) Hemoglobin 10.1 g/dL (13.0-17.5) Hematocrit 31.0 % (39.0-53.0) Mean Corpuscular Volume 88 fL (79-100) Mean Corpuscular Hemoglobin 29 pg (25-35) Mean Corpuscular Hemoglobin Concent 33 g/dL (31-37) Red Cell Distribution Width 18.6 % (11.5-14.5) Platelet Count 407 x10^3/uL (140-400) Neutrophils (%) (Auto) 70 % (31-73) Lymphocytes (%) (Auto) 14 % (24-48) Monocytes (%) (Auto) 9 % (0-9) Eosinophils (%) (Auto) 6 % (0-3) Basophils (%) (Auto) 1 % (0-3) Neutrophils # (Auto) 7.4 x10^3/uL (1.8-7.7) Lymphocytes # (Auto) 1.4 x10^3/uL (1.0-4.8) Monocytes # (Auto) 0.9 x10^3/uL (0.0-1.1) Eosinophils # (Auto) 0.7 x10^3/uL (0.0-0.7) Basophils # (Auto) 0.1 x10^3/uL (0.0-0.2) Erythrocyte Sedimentation Rate 128 (0-15) Urine Collection Type U cath Urine Color Red Urine Clarity Turbid Urine pH Urine Specific [place] Urine Protein mg/dL (NEG-TRACE) Urine Glucose (UA) mg/dL (NEG) Urine Ketones (Stick) mg/dL (NEG) Urine Blood (NEG) Urine Nitrite (NEG) Urine Bilirubin (NEG) Urine Urobilinogen Dipstick mg/dL (0.2 mg/dL) Urine Leukocyte Esterase (NEG) Urine RBC >40 /HPF (0-2) Urine WBC Tntc /HPF (0-4) Urine Bacteria Many /HPF (0-FEW) Prothrombin Time 19.7 SEC (11.7-14.0) Prothromb Time International Ratio 1.7 (0.8-1.1) Sodium Level 141 mmol/L (136-145) Potassium Level 4.4 mmol/L (3.5-5.1) Chloride Level 96 mmol/L (98-107) Carbon Dioxide Level 36 mmol/L (21-32) Anion Gap 9 (6-14) Blood Urea Nitrogen 78 mg/dL (8-26) Creatinine 7.1 mg/dL (0.7-1.3) Estimated GFR (Cockcroft-Gault) 9.1 BUN/Creatinine Ratio 11 (6-20) Glucose Level 149 mg/dL (70-99) Lactic Acid Level 1.3 mmol/L (0.4-2.0) Calcium Level 9.3 mg/dL (8.5-10.1) Magnesium Level 2.1 mg/dL (1.8-2.4) Total Bilirubin 0.5 mg/dL (0.2-1.0) Aspartate Amino Transf (AST/SGOT) 29 U/L (15-37) Alanine Aminotransferase (ALT/SGPT) 20 U/L (16-63) Alkaline Phosphatase 162 U/L (46-116) Troponin I Quantitative 0.293 ng/mL (0.000-0.055) 0.217 ng/mL (0.000-0.055) C-Reactive Protein, Quantitative 185.7 mg/L (0-3.3) Total Protein 7.1 g/dL (6.4-8.2) Albumin 2.1 g/dL (3.4-5.0) Albumin/Globulin Ratio 0.4 (1.0-1.7) Test 06/22/19 21:45 06/23/19 03:20 06/23/19 03:25 Troponin I Quantitative 0.191 ng/mL (0.000-0.055) Sodium Level 142 mmol/L (136-145) Potassium Level 4.2 mmol/L (3.5-5.1) Chloride Level 97 mmol/L (98-107) Carbon Dioxide Level 35 mmol/L (21-32) Anion Gap 10 (6-14) Blood Urea Nitrogen 36 mg/dL (8-26) Creatinine 4.4 mg/dL (0.7-1.3) Estimated GFR (Cockcroft-Gault) 15.8 Glucose Level 88 mg/dL (70-99) Calcium Level 9.2 mg/dL (8.5-10.1) White Blood Count 9.8 x10^3/uL (4.0-11.0) Red Blood Count 3.76 x10^6/uL (4.30-5.70) Hemoglobin 10.9 g/dL (13.0-17.5) Hematocrit 33.3 % (39.0-53.0) Mean Corpuscular Volume 89 fL (79-100) Mean Corpuscular Hemoglobin 29 pg (25-35) Mean Corpuscular Hemoglobin Concent 33 g/dL (31-37) Red Cell Distribution Width 18.6 % (11.5-14.5) Platelet Count 412 x10^3/uL (140-400) Neutrophils (%) (Auto) 67 % (31-73) Lymphocytes (%) (Auto) 15 % (24-48) Monocytes (%) (Auto) 10 % (0-9) Eosinophils (%) (Auto) 7 % (0-3) Basophils (%) (Auto) 1 % (0-3) Neutrophils # (Auto) 6.6 x10^3/uL (1.8-7.7) Lymphocytes # (Auto) 1.5 x10^3/uL (1.0-4.8) Monocytes # (Auto) 1.0 x10^3/uL (0.0-1.1) Eosinophils # (Auto) 0.6 x10^3/uL (0.0-0.7) Basophils # (Auto) 0.1 x10^3/uL (0.0-0.2) Assessment/Plan Assessment/Plan 78-year-old male with peripheral arterial disease and history of bilateral below-knee amputation presents with altered mental status, urinary tract infection and left below-knee amputation incision site wound. Recommend con tinued antibiotics and local wound care. The patient may benefit from surgical debridement and wound VAC placement. Will discuss history and physical examination with Dr. Singer and make additional recommendations as needed. STANLEY DUMONT APRN Jun 23, 2019 09:16
--- NOTE | 2019-06-23 09:48 | PDOC ---
PROGRESS NOTES Subjective Subjective he is more alert and follows commands but not talking much. moves arms on command. lab reviewed. low grade fever. seen by vascular surgery. Objective Objective Vital Signs Date Time Temp Pulse Resp B/P (MAP) Pulse Ox O2 Delivery O2 Flow Rate FiO2 06/23/19 07:30 99.0 76 18 114/62 (79) 97 Room Air 99.0 Intake and Output 06/23/19 07:00 Intake Total 50 ml Output Total 0 ml Balance 50 ml Intake Oral 0 ml IV Total 50 ml Output Urine Total 0 ml Physical Exam Abdomen: Soft, Other (obese) Heart: Normal S1, Normal S2 Extremities: Other (bilateral BKA with wound lateral left BKA stump which is soft) General: Alert, Other (weak. ) HEENT: Atraumatic Lungs: Clear to auscultation Neuro: Other (did not talk. followed commands and moving arms) Psych/Mental Status: Mood NL Skin: No rashes, Other (wound left lateral BKA stump site) Assessment Assessment Problems1. Altered mental status, most likely secondary to metabolic encephalopathy. 2. Pyuria, consistent with urinary tract infection. 3. Bilateral below-knee amputation. 4. left below-knee amputation stump wound 5. Diabetes mellitus type 2. 6. Peripheral arterial disease. 7. End-stage renal disease, on hemodialysis. m-w-f 8. Chronic atrial fibrillation. 9. Severe protein-calorie malnutrition. 10. Anemia of chronic disease. NSTEMMI Medical Problems: (1) Altered mental status Status: Acute (2) ESRD (end stage renal disease) Status: Acute (3) UTI (urinary tract infection) Status: Acute Plan Plan of Care continue iv vancomycin and zosyn hemodialysis tomorrow MRI of left BKA stump MRI brain echocardiogram consult ST for swallow eval discussed with nurse Comment Review of Relevant I have reviewed the following items soumya (where applicable) has been applied. Labs Laboratory Tests Test 06/22/19 10:40 06/22/19 11:35 06/22/19 11:50 06/22/19 16:05 White Blood Count 10.5 x10^3/uL (4.0-11.0) Red Blood Count 3.54 x10^6/uL (4.30-5.70) Hemoglobin 10.1 g/dL (13.0-17.5) Hematocrit 31.0 % (39.0-53.0) Mean Corpuscular Volume 88 fL (79-100) Mean Corpuscular Hemoglobin 29 pg (25-35) Mean Corpuscular Hemoglobin Concent 33 g/dL (31-37) Red Cell Distribution Width 18.6 % (11.5-14.5) Platelet Count 407 x10^3/uL (140-400) Neutrophils (%) (Auto) 70 % (31-73) Lymphocytes (%) (Auto) 14 % (24-48) Monocytes (%) (Auto) 9 % (0-9) Eosinophils (%) (Auto) 6 % (0-3) Basophils (%) (Auto) 1 % (0-3) Neutrophils # (Auto) 7.4 x10^3/uL (1.8-7.7) Lymphocytes # (Auto) 1.4 x10^3/uL (1.0-4.8) Monocytes # (Auto) 0.9 x10^3/uL (0.0-1.1) Eosinophils # (Auto) 0.7 x10^3/uL (0.0-0.7) Basophils # (Auto) 0.1 x10^3/uL (0.0-0.2) Erythrocyte Sedimentation Rate 128 (0-15) Urine Collection Type U cath Urine Color Red Urine Clarity Turbid Urine pH Urine Specific [place] Urine Protein mg/dL (NEG-TRACE) Urine Glucose (UA) mg/dL (NEG) Urine Ketones (Stick) mg/dL (NEG) Urine Blood (NEG) Urine Nitrite (NEG) Urine Bilirubin (NEG) Urine Urobilinogen Dipstick mg/dL (0.2 mg/dL) Urine Leukocyte Esterase (NEG) Urine RBC >40 /HPF (0-2) Urine WBC Tntc /HPF (0-4) Urine Bacteria Many /HPF (0-FEW) Prothrombin Time 19.7 SEC (11.7-14.0) Prothromb Time International Ratio 1.7 (0.8-1.1) Sodium Level 141 mmol/L (136-145) Potassium Level 4.4 mmol/L (3.5-5.1) Chloride Level 96 mmol/L (98-107) Carbon Dioxide Level 36 mmol/L (21-32) Anion Gap 9 (6-14) Blood Urea Nitrogen 78 mg/dL (8-26) Creatinine 7.1 mg/dL (0.7-1.3) Estimated GFR (Cockcroft-Gault) 9.1 BUN/Creatinine Ratio 11 (6-20) Glucose Level 149 mg/dL (70-99) Lactic Acid Level 1.3 mmol/L (0.4-2.0) Calcium Level 9.3 mg/dL (8.5-10.1) Magnesium Level 2.1 mg/dL (1.8-2.4) Total Bilirubin 0.5 mg/dL (0.2-1.0) Aspartate Amino Transf (AST/SGOT) 29 U/L (15-37) Alanine Aminotransferase (ALT/SGPT) 20 U/L (16-63) Alkaline Phosphatase 162 U/L (46-116) Troponin I Quantitative 0.293 ng/mL (0.000-0.055) 0.217 ng/mL (0.000-0.055) C-Reactive Protein, Quantitative 185.7 mg/L (0-3.3) Total Protein 7.1 g/dL (6.4-8.2) Albumin 2.1 g/dL (3.4-5.0) Albumin/Globulin Ratio 0.4 (1.0-1.7) Test 06/22/19 21:45 06/23/19 03:20 06/23/19 03:25 Troponin I Quantitative 0.191 ng/mL (0.000-0.055) Sodium Level 142 mmol/L (136-145) Potassium Level 4.2 mmol/L (3.5-5.1) Chloride Level 97 mmol/L (98-107) Carbon Dioxide Level 35 mmol/L (21-32) Anion Gap 10 (6-14) Blood Urea Nitrogen 36 mg/dL (8-26) Creatinine 4.4 mg/dL (0.7-1.3) Estimated GFR (Cockcroft-Gault) 15.8 Glucose Level 88 mg/dL (70-99) Calcium Level 9.2 mg/dL (8.5-10.1) Triglycerides Level 76 mg/dL (0-150) Cholesterol Level 109 mg/dL (0-200) LDL Cholesterol, Calculated 69 mg/dL (0-100) VLDL Cholesterol, Calculated 15 mg/dL (0-40) Non-HDL Cholesterol Calculated 84 mg/dL (0-129) HDL Cholesterol 25 mg/dL (40-60) Cholesterol/HDL Ratio 4.4 White Blood Count 9.8 x10^3/uL (4.0-11.0) Red Blood Count 3.76 x10^6/uL (4.30-5.70) Hemoglobin 10.9 g/dL (13.0-17.5) Hematocrit 33.3 % (39.0-53.0) Mean Corpuscular Volume 89 fL (79-100) Mean Corpuscular Hemoglobin 29 pg (25-35) Mean Corpuscular Hemoglobin Concent 33 g/dL (31-37) Red Cell Distribution Width 18.6 % (11.5-14.5) Platelet Count 412 x10^3/uL (140-400) Neutrophils (%) (Auto) 67 % (31-73) Lymphocytes (%) (Auto) 15 % (24-48) Monocytes (%) (Auto) 10 % (0-9) Eosinophils (%) (Auto) 7 % (0-3) Basophils (%) (Auto) 1 % (0-3) Neutrophils # (Auto) 6.6 x10^3/uL (1.8-7.7) Lymphocytes # (Auto) 1.5 x10^3/uL (1.0-4.8) Monocytes # (Auto) 1.0 x10^3/uL (0.0-1.1) Eosinophils # (Auto) 0.6 x10^3/uL (0.0-0.7) Basophils # (Auto) 0.1 x10^3/uL (0.0-0.2) Laboratory Tests Test 06/22/19 10:40 06/22/19 11:35 06/22/19 11:50 06/22/19 16:05 White Blood Count 10.5 x10^3/uL (4.0-11.0) Red Blood Count 3.54 x10^6/uL (4.30-5.70) Hemoglobin 10.1 g/dL (13.0-17.5) Hematocrit 31.0 % (39.0-53.0) Mean Corpuscular Volume 88 fL (79-100) Mean Corpuscular Hemoglobin 29 pg (25-35) Mean Corpuscular Hemoglobin Concent 33 g/dL (31-37) Red Cell Distribution Width 18.6 % (11.5-14.5) Platelet Count 407 x10^3/uL (140-400) Neutrophils (%) (Auto) 70 % (31-73) Lymphocytes (%) (Auto) 14 % (24-48) Monocytes (%) (Auto) 9 % (0-9) Eosinophils (%) (Auto) 6 % (0-3) Basophils (%) (Auto) 1 % (0-3) Neutrophils # (Auto) 7.4 x10^3/uL (1.8-7.7) Lymphocytes # (Auto) 1.4 x10^3/uL (1.0-4.8) Monocytes # (Auto) 0.9 x10^3/uL (0.0-1.1) Eosinophils # (Auto) 0.7 x10^3/uL (0.0-0.7) Basophils # (Auto) 0.1 x10^3/uL (0.0-0.2) Erythrocyte Sedimentation Rate 128 (0-15) Urine Collection Type U cath Urine Color Red Urine Clarity Turbid Urine pH Urine Specific [place] Urine Protein mg/dL (NEG-TRACE) Urine Glucose (UA) mg/dL (NEG) Urine Ketones (Stick) mg/dL (NEG) Urine Blood (NEG) Urine Nitrite (NEG) Urine Bilirubin (NEG) Urine Urobilinogen Dipstick mg/dL (0.2 mg/dL) Urine Leukocyte Esterase (NEG) Urine RBC >40 /HPF (0-2) Urine WBC Tntc /HPF (0-4) Urine Bacteria Many /HPF (0-FEW) Prothrombin Time 19.7 SEC (11.7-14.0) Prothromb Time International Ratio 1.7 (0.8-1.1) Sodium Level 141 mmol/L (136-145) Potassium Level 4.4 mmol/L (3.5-5.1) Chloride Level 96 mmol/L (98-107) Carbon Dioxide Level 36 mmol/L (21-32) Anion Gap 9 (6-14) Blood Urea Nitrogen 78 mg/dL (8-26) Creatinine 7.1 mg/dL (0.7-1.3) Estimated GFR (Cockcroft-Gault) 9.1 BUN/Creatinine Ratio 11 (6-20) Glucose Level 149 mg/dL (70-99) Lactic Acid Level 1.3 mmol/L (0.4-2.0) Calcium Level 9.3 mg/dL (8.5-10.1) Magnesium Level 2.1 mg/dL (1.8-2.4) Total Bilirubin 0.5 mg/dL (0.2-1.0) Aspartate Amino Transf (AST/SGOT) 29 U/L (15-37) Alanine Aminotransferase (ALT/SGPT) 20 U/L (16-63) Alkaline Phosphatase 162 U/L (46-116) Troponin I Quantitative 0.293 ng/mL (0.000-0.055) 0.217 ng/mL (0.000-0.055) C-Reactive Protein, Quantitative 185.7 mg/L (0-3.3) Total Protein 7.1 g/dL (6.4-8.2) Albumin 2.1 g/dL (3.4-5.0) Albumin/Globulin Ratio 0.4 (1.0-1.7) Test 06/22/19 21:45 06/23/19 03:20 06/23/19 03:25 Troponin I Quantitative 0.191 ng/mL (0.000-0.055) Sodium Level 142 mmol/L (136-145) Potassium Level 4.2 mmol/L (3.5-5.1) Chloride Level 97 mmol/L (98-107) Carbon Dioxide Level 35 mmol/L (21-32) Anion Gap 10 (6-14) Blood Urea Nitrogen 36 mg/dL (8-26) Creatinine 4.4 mg/dL (0.7-1.3) Estimated GFR (Cockcroft-Gault) 15.8 Glucose Level 88 mg/dL (70-99) Calcium Level 9.2 mg/dL (8.5-10.1) Triglycerides Level 76 mg/dL (0-150) Cholesterol Level 109 mg/dL (0-200) LDL Cholesterol, Calculated 69 mg/dL (0-100) VLDL Cholesterol, Calculated 15 mg/dL (0-40) Non-HDL Cholesterol Calculated 84 mg/dL (0-129) HDL Cholesterol 25 mg/dL (40-60) Cholesterol/HDL Ratio 4.4 White Blood Count 9.8 x10^3/uL (4.0-11.0) Red Blood Count 3.76 x10^6/uL (4.30-5.70) Hemoglobin 10.9 g/dL (13.0-17.5) Hematocrit 33.3 % (39.0-53.0) Mean Corpuscular Volume 89 fL (79-100) Mean Corpuscular Hemoglobin 29 pg (25-35) Mean Corpuscular Hemoglobin Concent 33 g/dL (31-37) Red Cell Distribution Width 18.6 % (11.5-14.5) Platelet Count 412 x10^3/uL (140-400) Neutrophils (%) (Auto) 67 % (31-73) Lymphocytes (%) (Auto) 15 % (24-48) Monocytes (%) (Auto) 10 % (0-9) Eosinophils (%) (Auto) 7 % (0-3) Basophils (%) (Auto) 1 % (0-3) Neutrophils # (Auto) 6.6 x10^3/uL (1.8-7.7) Lymphocytes # (Auto) 1.5 x10^3/uL (1.0-4.8) Monocytes # (Auto) 1.0 x10^3/uL (0.0-1.1) Eosinophils # (Auto) 0.6 x10^3/uL (0.0-0.7) Basophils # (Auto) 0.1 x10^3/uL (0.0-0.2) Medications Current Medications Vancomycin HCl 250 ml @ 250 mls/hr 1X ONCE IV ; Start 06/22/19 at 10:45; Stop 06/22/19 at 11:44; Status UNV Piperacillin Sod/ Tazobactam Sod 2.25 gm/Sodium Chloride 50 ml @ 100 mls/hr 1X ONCE IV Last administered on 06/22/19at 11:55; Start 06/22/19 at 10:45; Stop 06/22/19 at 11:14; Status DC Sodium Chloride 1,000 ml @ 100 mls/hr Q10H IV Last administered on 06/22/19at 11:55; Start 06/22/19 at 10:38; Stop 06/22/19 at 20:37; Status DC Vancomycin HCl 2 gm/Sodium Chloride 500 ml @ 250 mls/hr 1X ONCE IV Last administered on 06/22/19at 12:32; Start 06/22/19 at 11:30; Stop 06/22/19 at 13:29; Status DC Info (PHARMACY MONITORING -- do not chart) 1 each PRN DAILY PRN MC SEE COMMENTS; Start 06/22/19 at 16:30 Info (PHARMACY MONITORING -- do not chart) 1 each PRN DAILY PRN MC SEE COMMENTS; Start 06/22/19 at 16:30; Status UNV Sodium Chloride 1,000 ml @ 40 mls/hr Q24H IV Last administered on 06/22/19at 21:37; Start 06/22/19 at 17:30 Vancomycin HCl (Vanco Per Pharmacy) 1 each PRN DAILY PRN MC SEE COMMENTS Last administered on 06/22/19at 17:50; Start 06/22/19 at 17:30 Piperacillin Sod/ Tazobactam Sod (Zosyn Per Pharmacy) 1 each PRN DAILY PRN MC SEE COMMENTS; Start 06/22/19 at 17:30 Acetaminophen (Tylenol) 650 mg PRN Q6HRS PRN PO MILD PAIN / TEMP; Start 06/22/19 at 17:30 Ondansetron HCl (Zofran) 4 mg PRN Q6HRS PRN IV NAUSEA/VOMITING; Start 06/22/19 at 17:30 Clopidogrel Bisulfate (Plavix) 75 mg DAILYWBKFT PO ; Start 06/23/19 at 08:00 Vitamin B Complex/ Vitamin C (Rosalie-Judah) 1 tab DAILY PO ; Start 06/23/19 at 09:00 Allopurinol (Zyloprim) 100 mg DAILY PO ; Start 06/23/19 at 09:00 Atorvastatin Calcium (Lipitor) 40 mg QHS PO Last administered on 06/22/19at 21:37; Start 06/22/19 at 21:00 Pantoprazole Sodium (Protonix) 40 mg DAILYAC PO ; Start 06/23/19 at 07:30 Cyanocobalamin (Vitamin B-12) 1,000 mcg DAILY PO ; Start 06/23/19 at 09:00 Piperacillin Sod/ Tazobactam Sod 2.25 gm/Sodium Chloride 50 ml @ 100 mls/hr Q8HRS IV Last administered on 06/23/19at 05:36; Start 06/22/19 at 21:00 Heparin Sodium (Porcine) (Heparin Sodium) 5,000 unit BID SQ Last administered on 06/22/19at 21:37; Start 06/22/19 at 21:00; Stop 06/23/19 at 08:23; Status DC Insulin Human Lispro (HumaLOG) 0-6 UNITS BG 400-49... TIDWMEALS SQ ; Start 06/23/19 at 08:00 Vancomycin HCl (Vancomycin Random Level) 1 each 1X ONCE MC ; Start 06/24/19 at 06:00; Stop 06/24/19 at 06:01 Heparin Sodium/ Dextrose 500 ml @ 19.3 mls/hr CONT PRN IV SEE I/O RECORD; Start 06/23/19 at 08:30 Heparin Sodium (Porcine) (Heparin Sodium) 2,000 unit PRN Q6HRS PRN IV FOR UFH LEVEL LESS THAN 0.2; Start 06/23/19 at 08:30 Vitals/I & O Vital Sign - Last 24 Hours 06/22/19 06/22/19 06/22/19 06/22/19 10:54 12:00 13:00 14:00 Temp 98.1 98.1 Pulse 78 70 74 74 Resp 16 16 16 16 B/P (MAP) 125/64 (84) Pulse Ox 95 95 93 95 O2 Delivery Room Air 06/22/19 06/22/19 06/22/19 06/23/19 15:00 20:32 23:48 03:48 Temp 98.3 99.5 99.5 98.3 99.5 99.5 Pulse 72 83 81 79 Resp 16 20 16 16 B/P (MAP) 112/60 (77) 113/56 (75) 103/57 (72) Pulse Ox 96 97 93 93 O2 Delivery Room Air Room Air Room Air 06/23/19 07:30 Temp 99.0 99.0 Pulse 76 Resp 18 B/P (MAP) 114/62 (79) Pulse Ox 97 O2 Delivery Room Air Intake and Output 06/22/19 06/22/19 06/23/19 15:00 23:00 07:00 Intake Total 50 ml 0 ml Output Total 0 ml Balance 50 ml 0 ml SAM OLMOS MD Jun 23, 2019 09:48
--- NOTE | 2019-06-23 10:11 | PDOC2 ---
CARDIAC CONSULT DATE OF CONSULT Date of Consult DATE: 06/23/19 TIME: 09:54 REASON FOR CONSULT Reason for Consult: Afib, abnormal EKG, elevated trop REFERRING PHYSICIAN Referring Physician: Eliecer SOURCE Source: Chart review, Patient HISTORY OF PRESENT ILLNESS HISTORY OF PRESENT ILLNESS This is a 78 yo AA male admitted from [facility] for noted altered mental status. He is known for ESRD, AFIB, PAD, DM@ and bilateral BKA. Upon admission he has been noted with likely UTI. Also elevated troponin with EKG changes. No notable chest pain. He is alert when I evaluated him but nonverbal but able to nod yes or no on closed ended questions. It is unclear if he has dementia or what his baseline mentation. He was at 6S initially and needing to be transferred to [facility] due to cardiac issue. PAST MEDICAL HISTORY Past Medical History Cardiovascular: AFIB, CAD, CHF, HTN, Hyperlipidemia, PAD Pulmonary: Other (EDMUNDO) CENTRAL NERVOUS SYSTEM: CVA GI: GERD, Other (colon polyps) Heme/Onc: psoas hematoma Hepatobiliary: No pertinent hx Psych: No pertinent hx Musculoskeletal: Osteoarthritis Rheumatologic: No pertinent hx Infectious disease: No pertinent hx ENT: No pertinent hx Renal/: Chronic renal insuff Endocrine: Diabetes (2) Dermatology: No pertinent hx PAST SURGICAL HISTORY Past Surgical History Other (left toe amputation; PCI/stent; [employer]/stent, PPM, amputation of the right 3rd through the 5th toes, debridement of a right ankle wound, ST[employer]/stenting of the right SFA, POBA right PT and Peroneal) FAMILY HISTORY Family History: Coronary Artery Disease (father) SOCIAL HISTORY Smoke: No ALCOHOL: none Drugs: None 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 CURRENT MEDICATIONS CURRENT MEDICATIONS Current Medications Medications (Trade) Dose Ordered Sig/Mitzi Route PRN Reason Start Time Stop Time Status Last Admin Dose Admin Piperacillin Sod/ Tazobactam Sod 2.25 gm/Sodium Chloride 50 ml @ 100 mls/hr 1X ONCE IV 06/22/19 10:45 06/22/19 11:14 DC 06/22/19 11:55 Sodium Chloride 1,000 ml @ 100 mls/hr Q10H IV 06/22/19 10:38 06/22/19 20:37 DC 06/22/19 11:55 Vancomycin HCl 2 gm/Sodium Chloride 500 ml @ 250 mls/hr 1X ONCE IV 06/22/19 11:30 06/22/19 13:29 DC 06/22/19 12:32 Sodium Chloride 1,000 ml @ 40 mls/hr Q24H IV 06/22/19 17:30 06/22/19 21:37 Vancomycin HCl (Vanco Per Pharmacy) 1 each PRN DAILY PRN MC SEE COMMENTS 06/22/19 17:30 06/22/19 17:50 Atorvastatin Calcium (Lipitor) 40 mg QHS PO 06/22/19 21:00 06/22/19 21:37 Piperacillin Sod/ Tazobactam Sod 2.25 gm/Sodium Chloride 50 ml @ 100 mls/hr Q8HRS IV 06/22/19 21:00 06/23/19 05:36 Heparin Sodium (Porcine) (Heparin Sodium) 5,000 unit BID SQ 06/22/19 21:00 06/23/19 08:23 DC 06/22/19 21:37 ALLERGIES ALLERGIES: Coded Allergies: I S O L A T I O N *CONTACT* (Verified Allergy, Unknown, 06/23/19) mrsa/vre No Known Medication Allergies (Verified Allergy, Unknown, 06/23/19) ROS Review of System limited, nonverbal, appears uncomfortable. PHYSICAL EXAM General: Alert, Cooperative, No acute distress HEENT: Atraumatic, Mucous membr. moist/pink Lungs: Other (diminished bases) Abdomen: Soft Extremities: No cyanosis, Other (bilateral BKA) Skin: No breakdown Neuro: Sensation intact Psych/Mental Status: Other (nonverbal) MUSCULOSKELETAL: Osteoarthritic changes both hands VITALS/I&O VITALS/I&O: Vital Signs Date Time Temp Pulse Resp B/P (MAP) Pulse Ox O2 Delivery O2 Flow Rate FiO2 06/23/19 07:30 99.0 76 18 114/62 (79) 97 Room Air 99.0 I & O 06/22/19 06/22/19 06/23/19 14:59 22:59 06:59 Intake Total 50 ml 0 ml Output Total 0 ml Balance 50 ml 0 ml LABS Lab: Laboratory Tests Test 06/22/19 10:40 06/22/19 11:35 06/22/19 11:50 06/22/19 16:05 White Blood Count 10.5 x10^3/uL (4.0-11.0) Red Blood Count 3.54 x10^6/uL (4.30-5.70) L Hemoglobin 10.1 g/dL (13.0-17.5) L Hematocrit 31.0 % (39.0-53.0) L Mean Corpuscular Volume 88 fL (79-100) Mean Corpuscular Hemoglobin 29 pg (25-35) Mean Corpuscular Hemoglobin Concent 33 g/dL (31-37) Red Cell Distribution Width 18.6 % (11.5-14.5) H Platelet Count 407 x10^3/uL (140-400) H Neutrophils (%) (Auto) 70 % (31-73) Lymphocytes (%) (Auto) 14 % (24-48) L Monocytes (%) (Auto) 9 % (0-9) Eosinophils (%) (Auto) 6 % (0-3) H Basophils (%) (Auto) 1 % (0-3) Neutrophils # (Auto) 7.4 x10^3/uL (1.8-7.7) Lymphocytes # (Auto) 1.4 x10^3/uL (1.0-4.8) Monocytes # (Auto) 0.9 x10^3/uL (0.0-1.1) Eosinophils # (Auto) 0.7 x10^3/uL (0.0-0.7) Basophils # (Auto) 0.1 x10^3/uL (0.0-0.2) Erythrocyte Sedimentation Rate 128 (0-15) H Urine Collection Type U cath Urine Color Red Urine Clarity Turbid Urine pH Urine Specific [place] Urine Protein mg/dL (NEG-TRACE) Urine Glucose (UA) mg/dL (NEG) Urine Ketones (Stick) mg/dL (NEG) Urine Blood (NEG) Urine Nitrite (NEG) Urine Bilirubin (NEG) Urine Urobilinogen Dipstick mg/dL (0.2 mg/dL) Urine Leukocyte Esterase (NEG) Urine RBC >40 /HPF (0-2) Urine WBC Tntc /HPF (0-4) Urine Bacteria Many /HPF (0-FEW) Prothrombin Time 19.7 SEC (11.7-14.0) H Prothrombin Time INR 1.7 (0.8-1.1) H Sodium Level 141 mmol/L (136-145) Potassium Level 4.4 mmol/L (3.5-5.1) Chloride Level 96 mmol/L (98-107) L Carbon Dioxide Level 36 mmol/L (21-32) H Anion Gap 9 (6-14) Blood Urea Nitrogen 78 mg/dL (8-26) H Creatinine 7.1 mg/dL (0.7-1.3) H Estimated GFR (Cockcroft-Gault) 9.1 BUN/Creatinine Ratio 11 (6-20) Glucose Level 149 mg/dL (70-99) H Lactic Acid Level 1.3 mmol/L (0.4-2.0) Calcium Level 9.3 mg/dL (8.5-10.1) Magnesium Level 2.1 mg/dL (1.8-2.4) Total Bilirubin 0.5 mg/dL (0.2-1.0) Aspartate Amino Transferase (AST) 29 U/L (15-37) Alanine Aminotransferase (ALT) 20 U/L (16-63) Alkaline Phosphatase 162 U/L (46-116) H Troponin I Quantitative 0.293 ng/mL (0.000-0.055) 0.217 ng/mL (0.000-0.055) C-Reactive Protein, Quantitative 185.7 mg/L (0-3.3) H Total Protein 7.1 g/dL (6.4-8.2) Albumin 2.1 g/dL (3.4-5.0) L Albumin/Globulin Ratio 0.4 (1.0-1.7) L Test 06/22/19 21:45 06/23/19 03:20 06/23/19 03:25 Troponin I Quantitative 0.191 ng/mL (0.000-0.055) Sodium Level 142 mmol/L (136-145) Potassium Level 4.2 mmol/L (3.5-5.1) Chloride Level 97 mmol/L (98-107) L Carbon Dioxide Level 35 mmol/L (21-32) H Anion Gap 10 (6-14) Blood Urea Nitrogen 36 mg/dL (8-26) #H Creatinine 4.4 mg/dL (0.7-1.3) H Estimated GFR (Cockcroft-Gault) 15.8 Glucose Level 88 mg/dL (70-99) Calcium Level 9.2 mg/dL (8.5-10.1) Triglycerides Level 76 mg/dL (0-150) Cholesterol Level 109 mg/dL (0-200) LDL Cholesterol, Calculated 69 mg/dL (0-100) VLDL Cholesterol, Calculated 15 mg/dL (0-40) Non-HDL Cholesterol Calculated 84 mg/dL (0-129) HDL Cholesterol 25 mg/dL (40-60) L Cholesterol/HDL Ratio 4.4 White Blood Count 9.8 x10^3/uL (4.0-11.0) Red Blood Count 3.76 x10^6/uL (4.30-5.70) L Hemoglobin 10.9 g/dL (13.0-17.5) L Hematocrit 33.3 % (39.0-53.0) L Mean Corpuscular Volume 89 fL (79-100) Mean Corpuscular Hemoglobin 29 pg (25-35) Mean Corpuscular Hemoglobin Concent 33 g/dL (31-37) Red Cell Distribution Width 18.6 % (11.5-14.5) H Platelet Count 412 x10^3/uL (140-400) H Neutrophils (%) (Auto) 67 % (31-73) Lymphocytes (%) (Auto) 15 % (24-48) L Monocytes (%) (Auto) 10 % (0-9) H Eosinophils (%) (Auto) 7 % (0-3) H Basophils (%) (Auto) 1 % (0-3) Neutrophils # (Auto) 6.6 x10^3/uL (1.8-7.7) Lymphocytes # (Auto) 1.5 x10^3/uL (1.0-4.8) Monocytes # (Auto) 1.0 x10^3/uL (0.0-1.1) Eosinophils # (Auto) 0.6 x10^3/uL (0.0-0.7) Basophils # (Auto) 0.1 x10^3/uL (0.0-0.2) Laboratory Tests 06/22/19 10:40 06/23/19 03:25 Laboratory Tests 06/22/19 11:50 06/23/19 03:20 ECHOCARDIOGRAM ECHOCARDIOGRAM <Conclusion> The systolic function is mildly impaired. EF 45-50%. Septal motion consistent with conduction abnormality. Otherwise, mild global hypokinesis. Doppler and Color Flow revealed mild aortic regurgitation. Calculated aortic valve area is 1.5 cm2 with maximum pressure gradient of 17 mmHg and mean pressure gradient of 10 mmHg. Doppler and color-flow analysis revealed mild aortic stenosis. Doppler and Color-flow revealed moderate mitral regurgitation. Doppler and Color Flow revealed mild to moderate tricuspid regurgitation. There is moderate pulmonary hypertension. The PA pressure was estimated at 49 mmHg. DATE: 03/10/199 ASSESSMENT/PLAN ASSESSMENT/PLAN 1. UTI/cystitis 2. Metabolic Encephalopathy 3. NSTEMI: eleavted trop, EKG with noted ST depression 4. Chronic diastolic/systolic CHF: compensated 5. PAFIB; maintaining SR with small P wave morphology 6. Hypertension; controlled 7. CAD; s/p PCI/stent in the past. clinically stable. CP free. 8. Hx of PAD: with bilateral BKA 9. H/o CVA with left side hemiparesis 10. ESRD on HD 11. SSS s/p PPM ([employer]) VVIR, occasional brief NSVT 16% V paced 12. DM2/HLP 13. Hx of psoas hematoma r/t to past coumadin Recommendations heparin drip if able to get IV otherwise lovenox is OK, transfer to [facility]. ASA Fluid offloading/management via HD as per nephrology. Not a candidate for previous coumadin due to past bleed with psoas hematoma. ASA for stroke prevention Ischemic workup possibly tomorrow. Will evaluate swallowing. Interrogate device MARIANN SCHAFER APRN Jun 23, 2019 10:11
--- NOTE | 2019-06-23 10:16 | PDOC2 ---
NEUROLOGY CONSULT Date of Admission Date of Admission DATE: 06/23/19 TIME: 10:08 Reason for Consult Reason for Consult: Altered mental status Referring Physician Referring Physician: Dr. Gonzáles Source Source: Chart review, Patient History of Present Illness History of Present Illness The patient is a 78-year-old right-handed male assisted resident who comes in for altered mental status. He is being treated for chronic wounds and also has end-stage renal disease on dialysis.He denies any history of stroke, seizure, or head injury. There is no notation about dementia. Dr. Gonzáles writes that the patient is usually conversant. Past Medical History Cardiovascular: Hyperlipidemia, Other ( peripheral vascular disease) Pulmonary: Other ( sleep apnea) CENTRAL NERVOUS SYSTEM: Periperal neuropathy GI: GERD Heme/Onc: Anemia NOS Psych: Anxiety Musculoskeletal: Osteoarthritis Infectious disease: Other (osteomyelitis) Renal/: Chronic renal failure ( dialysis), Benign prostatic enlarg., Urinary Incontinence, Other ( nephrolithiasis) Endocrine: Diabetes Dermatology: Cellulitis, Other ( ) Past Surgical History Past Surgical History: Pacemaker, Other (Bilateral BKAs, AV shunt, cardiac cath eterization) Family History Family History: No pertinent hx Social History Social History Single, quit smoking several years ago, no alcohol, assisted resident Current Medications Current Medications Current Medications Vancomycin HCl 250 ml @ 250 mls/hr 1X ONCE IV ; Start 06/22/19 at 10:45; Stop 06/22/19 at 11:44; Status UNV Piperacillin Sod/ Tazobactam Sod 2.25 gm/Sodium Chloride 50 ml @ 100 mls/hr 1X ONCE IV Last administered on 06/22/19at 11:55; Start 06/22/19 at 10:45; Stop 06/22/19 at 11:14; Status DC Sodium Chloride 1,000 ml @ 100 mls/hr Q10H IV Last administered on 06/22/19at 11:55; Start 06/22/19 at 10:38; Stop 06/22/19 at 20:37; Status DC Vancomycin HCl 2 gm/Sodium Chloride 500 ml @ 250 mls/hr 1X ONCE IV Last administered on 06/22/19at 12:32; Start 06/22/19 at 11:30; Stop 06/22/19 at 13:29; Status DC Info (PHARMACY MONITORING -- do not chart) 1 each PRN DAILY PRN MC SEE COMM ENTS; Start 06/22/19 at 16:30 Info (PHARMACY MONITORING -- do not chart) 1 each PRN DAILY PRN MC SEE COMMENTS; Start 06/22/19 at 16:30; Status UNV Sodium Chloride 1,000 ml @ 40 mls/hr Q24H IV Last administered on 06/22/19at 21:37; Start 06/22/19 at 17:30 Vancomycin HCl (Vanco Per Pharmacy) 1 each PRN DAILY PRN MC SEE COMMENTS Last administered on 06/22/19at 17:50; Start 06/22/19 at 17:30 Piperacillin Sod/ Tazobactam Sod (Zosyn Per Pharmacy) 1 each PRN DAILY PRN MC SEE COMMENTS; Start 06/22/19 at 17:30 Acetaminophen (Tylenol) 650 mg PRN Q6HRS PRN PO MILD PAIN / TEMP; Start 06/22/19 at 17:30 Ondansetron HCl (Zofran) 4 mg PRN Q6HRS PRN IV NAUSEA/VOMITING; Start 06/22/19 at 17:30 Clopidogrel Bisulfate (Plavix) 75 mg DAILYWBKFT PO ; Start 06/23/19 at 08:00 Vitamin B Complex/ Vitamin C (Rosalie-Judah) 1 tab DAILY PO ; Start 06/23/19 at 09:00 Allopurinol (Zyloprim) 100 mg DAILY PO ; Start 06/23/19 at 09:00 Atorvastatin Calcium (Lipitor) 40 mg QHS PO Last administered on 06/22/19at 21:37; Start 06/22/19 at 21:00 Pantoprazole Sodium (Protonix) 40 mg DAILYAC PO ; Start 06/23/19 at 07:30 Cyanocobalamin (Vitamin B-12) 1,000 mcg DAILY PO ; Start 06/23/19 at 09:00 Piperacillin Sod/ Tazobactam Sod 2.25 gm/Sodium Chloride 50 ml @ 100 mls/hr Q8HRS IV Last administered on 06/23/19at 05:36; Start 06/22/19 at 21:00 Heparin Sodium (Porcine) (Heparin Sodium) 5,000 unit BID SQ Last administered on 06/22/19at 21:37; Start 06/22/19 at 21:00; Stop 06/23/19 at 08:23; Status DC Insulin Human Lispro (HumaLOG) 0-6 UNITS BG 400-49... TIDWMEALS SQ ; Start 06/23/19 at 08:00 Vancomycin HCl (Vancomycin Random Level) 1 each 1X ONCE MC ; Start 06/24/19 at 06:00; Stop 06/24/19 at 06:01 Heparin Sodium/ Dextrose 500 ml @ 19.3 mls/hr CONT PRN IV SEE I/O RECORD; Start 06/23/19 at 08:30 Heparin Sodium (Porcine) (Heparin Sodium) 2,000 unit PRN Q6HRS PRN IV FOR UFH LEVEL LESS THAN 0.2; Start 06/23/19 at 08:30 Aspirin (Ecotrin) 325 mg 1X ONCE PO ; Start 06/23/19 at 10:30; Stop 06/23/19 at 10:31 Aspirin (Ecotrin) 81 mg DAILYWBKFT PO ; Start 06/24/19 at 08:00 Allergies Allergies: Coded Allergies: No Known Drug Allergies (Unverified , 06/22/19) ROS Review of System Negative for fever, chills, weight loss, shortness of breath, chest pain, indig estion, hematochezia, melena, and dysuria. Full 14-point review of systems is negative. Physical Exam Physical Examination General: Well-developed, well-nourished black male in no acute distress HEENT: Normocephalic and�atraumatic. Tympanic membranes clear.�Temporal arteries�pulsatile and nontender.�Fundoscopic exam unremarkable Neck: Supple without bruit, no meningismus� Musculoskeletal: Stability:�see neurologic. Gait exam:�see neurologic. Tone:�see neurologic.�Strength:�see neurologic.� Neurological: Mental Status:�orientation, memory, attention span/concentration, language, fund of knowledge: Does not know date or location, names and repeats well with fluent speech, follows commands. Cranial Nerves:�Pupils equal and reactive to light, extraocular movements are�intact, visual pinto are full to confrontation. Facial sensation is normal. There is no facial asymmetry. Vestibulo-ocular reflex is intact. Palate elevates and tongue protrudes in midline. All other cranial related problems are negative except as mentioned before.�Reflexes:�0-1+ and symmetric. Bilateral below the knee amputations. Motor: 4/5 strength with normal tone and bulk. Coordination:�Finger-nose finger and vaaj-lc-atbc testing are normal. Rapid alternating movements and fine finger movements are intact. Gait:�not tested. Sensory:�Normal pinprick, vibration, light touch, proprioception in arms.� Vitals VITALS Vital Signs Date Time Temp Pulse Resp B/P (MAP) Pulse Ox O2 Delivery O2 Flow Rate FiO2 06/23/19 07:30 99.0 76 18 114/62 (79) 97 Room Air 99.0 Labs Labs Laboratory Tests Test 06/22/19 10:40 06/22/19 11:35 06/22/19 11:50 06/22/19 16:05 White Blood Count 10.5 x10^3/uL (4.0-11.0) Red Blood Count 3.54 x10^6/uL (4.30-5.70) Hemoglobin 10.1 g/dL (13.0-17.5) Hematocrit 31.0 % (39.0-53.0) Mean Corpuscular Volume 88 fL (79-100) Mean Corpuscular Hemoglobin 29 pg (25-35) Mean Corpuscular Hemoglobin Concent 33 g/dL (31-37) Red Cell Distribution Width 18.6 % (11.5-14.5) Platelet Count 407 x10^3/uL (140-400) Neutrophils (%) (Auto) 70 % (31-73) Lymphocytes (%) (Auto) 14 % (24-48) Monocytes (%) (Auto) 9 % (0-9) Eosinophils (%) (Auto) 6 % (0-3) Basophils (%) (Auto) 1 % (0-3) Neutrophils # (Auto) 7.4 x10^3/uL (1.8-7.7) Lymphocytes # (Auto) 1.4 x10^3/uL (1.0-4.8) Monocytes # (Auto) 0.9 x10^3/uL (0.0-1.1) Eosinophils # (Auto) 0.7 x10^3/uL (0.0-0.7) Basophils # (Auto) 0.1 x10^3/uL (0.0-0.2) Erythrocyte Sedimentation Rate 128 (0-15) Urine Collection Type U cath Urine Color Red Urine Clarity Turbid Urine pH Urine Specific Davidson Urine Protein mg/dL (NEG-TRACE) Urine Glucose (UA) mg/dL (NEG) Urine Ketones (Stick) mg/dL (NEG) Urine Blood (NEG) Urine Nitrite (NEG) Urine Bilirubin (NEG) Urine Urobilinogen Dipstick mg/dL (0.2 mg/dL) Urine Leukocyte Esterase (NEG) Urine RBC >40 /HPF (0-2) Urine WBC Tntc /HPF (0-4) Urine Bacteria Many /HPF (0-FEW) Prothrombin Time 19.7 SEC (11.7-14.0) Prothromb Time International Ratio 1.7 (0.8-1.1) Sodium Level 141 mmol/L (136-145) Potassium Level 4.4 mmol/L (3.5-5.1) Chloride Level 96 mmol/L (98-107) Carbon Dioxide Level 36 mmol/L (21-32) Anion Gap 9 (6-14) Blood Urea Nitrogen 78 mg/dL (8-26) Creatinine 7.1 mg/dL (0.7-1.3) Estimated GFR (Cockcroft-Gault) 9.1 BUN/Creatinine Ratio 11 (6-20) Glucose Level 149 mg/dL (70-99) Lactic Acid Level 1.3 mmol/L (0.4-2.0) Calcium Level 9.3 mg/dL (8.5-10.1) Magnesium Level 2.1 mg/dL (1.8-2.4) Total Bilirubin 0.5 mg/dL (0.2-1.0) Aspartate Amino Transf (AST/SGOT) 29 U/L (15-37) Alanine Aminotransferase (ALT/SGPT) 20 U/L (16-63) Alkaline Phosphatase 162 U/L (46-116) Troponin I Quantitative 0.293 ng/mL (0.000-0.055) 0.217 ng/mL (0.000-0.055) C-Reactive Protein, Quantitative 185.7 mg/L (0-3.3) Total Protein 7.1 g/dL (6.4-8.2) Albumin 2.1 g/dL (3.4-5.0) Albumin/Globulin Ratio 0.4 (1.0-1.7) Test 06/22/19 21:45 06/23/19 03:20 06/23/19 03:25 Troponin I Quantitative 0.191 ng/mL (0.000-0.055) Sodium Level 142 mmol/L (136-145) Potassium Level 4.2 mmol/L (3.5-5.1) Chloride Level 97 mmol/L (98-107) Carbon Dioxide Level 35 mmol/L (21-32) Anion Gap 10 (6-14) Blood Urea Nitrogen 36 mg/dL (8-26) Creatinine 4.4 mg/dL (0.7-1.3) Estimated GFR (Cockcroft-Gault) 15.8 Glucose Level 88 mg/dL (70-99) Calcium Level 9.2 mg/dL (8.5-10.1) Triglycerides Level 76 mg/dL (0-150) Cholesterol Level 109 mg/dL (0-200) LDL Cholesterol, Calculated 69 mg/dL (0-100) VLDL Cholesterol, Calculated 15 mg/dL (0-40) Non-HDL Cholesterol Calculated 84 mg/dL (0-129) HDL Cholesterol 25 mg/dL (40-60) Cholesterol/HDL Ratio 4.4 White Blood Count 9.8 x10^3/uL (4.0-11.0) Red Blood Count 3.76 x10^6/uL (4.30-5.70) Hemoglobin 10.9 g/dL (13.0-17.5) Hematocrit 33.3 % (39.0-53.0) Mean Corpuscular Volume 89 fL (79-100) Mean Corpuscular Hemoglobin 29 pg (25-35) Mean Corpuscular Hemoglobin Concent 33 g/dL (31-37) Red Cell Distribution Width 18.6 % (11.5-14.5) Platelet Count 412 x10^3/uL (140-400) Neutrophils (%) (Auto) 67 % (31-73) Lymphocytes (%) (Auto) 15 % (24-48) Monocytes (%) (Auto) 10 % (0-9) Eosinophils (%) (Auto) 7 % (0-3) Basophils (%) (Auto) 1 % (0-3) Neutrophils # (Auto) 6.6 x10^3/uL (1.8-7.7) Lymphocytes # (Auto) 1.5 x10^3/uL (1.0-4.8) Monocytes # (Auto) 1.0 x10^3/uL (0.0-1.1) Eosinophils # (Auto) 0.6 x10^3/uL (0.0-0.7) Basophils # (Auto) 0.1 x10^3/uL (0.0-0.2) Laboratory Tests Test 06/22/19 10:40 06/22/19 11:35 06/22/19 11:50 06/22/19 16:05 White Blood Count 10.5 x10^3/uL (4.0-11.0) Red Blood Count 3.54 x10^6/uL (4.30-5.70) Hemoglobin 10.1 g/dL (13.0-17.5) Hematocrit 31.0 % (39.0-53.0) Mean Corpuscular Volume 88 fL (79-100) Mean Corpuscular Hemoglobin 29 pg (25-35) Mean Corpuscular Hemoglobin Concent 33 g/dL (31-37) Red Cell Distribution Width 18.6 % (11.5-14.5) Platelet Count 407 x10^3/uL (140-400) Neutrophils (%) (Auto) 70 % (31-73) Lymphocytes (%) (Auto) 14 % (24-48) Monocytes (%) (Auto) 9 % (0-9) Eosinophils (%) (Auto) 6 % (0-3) Basophils (%) (Auto) 1 % (0-3) Neutrophils # (Auto) 7.4 x10^3/uL (1.8-7.7) Lymphocytes # (Auto) 1.4 x10^3/uL (1.0-4.8) Monocytes # (Auto) 0.9 x10^3/uL (0.0-1.1) Eosinophils # (Auto) 0.7 x10^3/uL (0.0-0.7) Basophils # (Auto) 0.1 x10^3/uL (0.0-0.2) Erythrocyte Sedimentation Rate 128 (0-15) Urine Collection Type U cath Urine Color Red Urine Clarity Turbid Urine pH Urine Specific Davidson Urine Protein mg/dL (NEG-TRACE) Urine Glucose (UA) mg/dL (NEG) Urine Ketones (Stick) mg/dL (NEG) Urine Blood (NEG) Urine Nitrite (NEG) Urine Bilirubin (NEG) Urine Urobilinogen Dipstick mg/dL (0.2 mg/dL) Urine Leukocyte Esterase (NEG) Urine RBC >40 /HPF (0-2) Urine WBC Tntc /HPF (0-4) Urine Bacteria Many /HPF (0-FEW) Prothrombin Time 19.7 SEC (11.7-14.0) Prothromb Time International Ratio 1.7 (0.8-1.1) Sodium Level 141 mmol/L (136-145) Potassium Level 4.4 mmol/L (3.5-5.1) Chloride Level 96 mmol/L (98-107) Carbon Dioxide Level 36 mmol/L (21-32) Anion Gap 9 (6-14) Blood Urea Nitrogen 78 mg/dL (8-26) Creatinine 7.1 mg/dL (0.7-1.3) Estimated GFR (Cockcroft-Gault) 9.1 BUN/Creatinine Ratio 11 (6-20) Glucose Level 149 mg/dL (70-99) Lactic Acid Level 1.3 mmol/L (0.4-2.0) Calcium Level 9.3 mg/dL (8.5-10.1) Magnesium Level 2.1 mg/dL (1.8-2.4) Total Bilirubin 0.5 mg/dL (0.2-1.0) Aspartate Amino Transf (AST/SGOT) 29 U/L (15-37) Alanine Aminotransferase (ALT/SGPT) 20 U/L (16-63) Alkaline Phosphatase 162 U/L (46-116) Troponin I Quantitative 0.293 ng/mL (0.000-0.055) 0.217 ng/mL (0.000-0.055) C-Reactive Protein, Quantitative 185.7 mg/L (0-3.3) Total Protein 7.1 g/dL (6.4-8.2) Albumin 2.1 g/dL (3.4-5.0) Albumin/Globulin Ratio 0.4 (1.0-1.7) Test 06/22/19 21:45 06/23/19 03:20 06/23/19 03:25 Troponin I Quantitative 0.191 ng/mL (0.000-0.055) Sodium Level 142 mmol/L (136-145) Potassium Level 4.2 mmol/L (3.5-5.1) Chloride Level 97 mmol/L (98-107) Carbon Dioxide Level 35 mmol/L (21-32) Anion Gap 10 (6-14) Blood Urea Nitrogen 36 mg/dL (8-26) Creatinine 4.4 mg/dL (0.7-1.3) Estimated GFR (Cockcroft-Gault) 15.8 Glucose Level 88 mg/dL (70-99) Calcium Level 9.2 mg/dL (8.5-10.1) Triglycerides Level 76 mg/dL (0-150) Cholesterol Level 109 mg/dL (0-200) LDL Cholesterol, Calculated 69 mg/dL (0-100) VLDL Cholesterol, Calculated 15 mg/dL (0-40) Non-HDL Cholesterol Calculated 84 mg/dL (0-129) HDL Cholesterol 25 mg/dL (40-60) Cholesterol/HDL Ratio 4.4 White Blood Count 9.8 x10^3/uL (4.0-11.0) Red Blood Count 3.76 x10^6/uL (4.30-5.70) Hemoglobin 10.9 g/dL (13.0-17.5) Hematocrit 33.3 % (39.0-53.0) Mean Corpuscular Volume 89 fL (79-100) Mean Corpuscular Hemoglobin 29 pg (25-35) Mean Corpuscular Hemoglobin Concent 33 g/dL (31-37) Red Cell Distribution Width 18.6 % (11.5-14.5) Platelet Count 412 x10^3/uL (140-400) Neutrophils (%) (Auto) 67 % (31-73) Lymphocytes (%) (Auto) 15 % (24-48) Monocytes (%) (Auto) 10 % (0-9) Eosinophils (%) (Auto) 7 % (0-3) Basophils (%) (Auto) 1 % (0-3) Neutrophils # (Auto) 6.6 x10^3/uL (1.8-7.7) Lymphocytes # (Auto) 1.5 x10^3/uL (1.0-4.8) Monocytes # (Auto) 1.0 x10^3/uL (0.0-1.1) Eosinophils # (Auto) 0.6 x10^3/uL (0.0-0.7) Basophils # (Auto) 0.1 x10^3/uL (0.0-0.2) Images Images CT HEAD WO CONTRAST History: Altered mental status Comparison/Correlation: None Findings: Axial images of the head were obtained without contrast. Advanced atrophy and chronic ischemic changes white matter noted. No intracranial hemorrhage, midline shift, or mass effect. Bony structures are intact. Right sphenoid sinus opacification noted. Opacification of posterior aspect of right ethmoid air cells suggested. Cavernous carotid calcification noted. Impression: No intracranial hemorrhage. Advanced atrophy and chronic ischemic change. Chronic paranasal sinusitis. Assessment/Plan Assessment/Plan Impression: Metabolic encephalopathy with probable underlying dementia, related to urinary tract infection and leg wounds, no evidence of primary central nervous system infection, new stroke, or ongoing seizure activity. Note that he has elevated troponin Recommendations: Treat medical diseases Holding on additional neurological studies. Thank you for letting me help of the patient's care. BAN TORRES MD Jun 23, 2019 10:16
[2019-06-23 10:24] VITALS: BP 105/56
[2019-06-23] MEDS ORDERED: ASPIRIN ENTERIC COATED 325 MG TABLET.DR. PO ONE (10:30)
--- NOTE | 2019-06-23 13:23 | PDOC ---
Renal-Progress Notes Subjective Notes Notes LESS CONFUSED History of Present Illness Hx of present illness NO CHANGE Vitals Vitals Vital Signs Date Time Temp Pulse Resp B/P (MAP) Pulse Ox O2 Delivery O2 Flow Rate FiO2 06/23/19 10:24 96.3 65 18 105/56 (72) 99 Room Air 96.3 Weight Weight [ ] I.O. Intake and Output Intake and Output 06/23/19 07:00 Intake Total 50 ml Output Total 0 ml Balance 50 ml Intake Oral 0 ml IV Total 50 ml Output Urine Total 0 ml Labs Labs Laboratory Tests Test 06/22/19 16:05 06/22/19 21:45 06/23/19 03:20 06/23/19 03:25 Troponin I Quantitative 0.217 ng/mL (0.000-0.055) 0.191 ng/mL (0.000-0.055) Sodium Level 142 mmol/L (136-145) Potassium Level 4.2 mmol/L (3.5-5.1) Chloride Level 97 mmol/L (98-107) Carbon Dioxide Level 35 mmol/L (21-32) Anion Gap 10 (6-14) Blood Urea Nitrogen 36 mg/dL (8-26) Creatinine 4.4 mg/dL (0.7-1.3) Estimated GFR (Cockcroft-Gault) 15.8 Glucose Level 88 mg/dL (70-99) Calcium Level 9.2 mg/dL (8.5-10.1) Triglycerides Level 76 mg/dL (0-150) Cholesterol Level 109 mg/dL (0-200) LDL Cholesterol, Calculated 69 mg/dL (0-100) VLDL Cholesterol, Calculated 15 mg/dL (0-40) Non-HDL Cholesterol Calculated 84 mg/dL (0-129) HDL Cholesterol 25 mg/dL (40-60) Cholesterol/HDL Ratio 4.4 White Blood Count 9.8 x10^3/uL (4.0-11.0) Red Blood Count 3.76 x10^6/uL (4.30-5.70) Hemoglobin 10.9 g/dL (13.0-17.5) Hematocrit 33.3 % (39.0-53.0) Mean Corpuscular Volume 89 fL (79-100) Mean Corpuscular Hemoglobin 29 pg (25-35) Mean Corpuscular Hemoglobin Concent 33 g/dL (31-37) Red Cell Distribution Width 18.6 % (11.5-14.5) Platelet Count 412 x10^3/uL (140-400) Neutrophils (%) (Auto) 67 % (31-73) Lymphocytes (%) (Auto) 15 % (24-48) Monocytes (%) (Auto) 10 % (0-9) Eosinophils (%) (Auto) 7 % (0-3) Basophils (%) (Auto) 1 % (0-3) Neutrophils # (Auto) 6.6 x10^3/uL (1.8-7.7) Lymphocytes # (Auto) 1.5 x10^3/uL (1.0-4.8) Monocytes # (Auto) 1.0 x10^3/uL (0.0-1.1) Eosinophils # (Auto) 0.6 x10^3/uL (0.0-0.7) Basophils # (Auto) 0.1 x10^3/uL (0.0-0.2) Micro Micro Microbiology 06/22/19 Blood Culture - Preliminary, Resulted NO GROWTH AFTER 1 DAY Review of Systems Constitutional: yes: other (CONFUSED) Physical Exam General Appearance: no apparent distress Skin: warm Respiratory: bilateral CTA Heart: S1S2 Abdomen: soft, bowel sounds present Genitourinary: bladder flat Extremities: pulses present Neurology: confused Assessment Assessment IMP UTI ? INFECTED BKA STUMP ANEMIA DM II HTN ESRD MET ENCEPHALOPATHY PLAN CONT ANTIBIOTICS WOUND CARE HD TOMORROW NANCY LIU MD Jun 23, 2019 13:22
[2019-06-23] MEDS: VANCOMYCIN PER PHARMACY MC PRN (14:26)
[2019-06-23] MEDS: ANTI-COAG MONITOR BY PHARMACY. MC PRN (14:30)
[2019-06-23 15:00] VITALS: BP 125/62
--- NOTE | 2019-06-23 15:29 | CARD ---
MR#: [id number] Date of Study: 06/23/2019 Ordering Physician: SAM OLMOS, Referring Physician: SAM OLMOS, Tech: Mela Page RDCS APPROVED REPORT EXAM: Two-dimensional and M-mode echocardiogram with Doppler and color Doppler. Other Information Quality : AverageHR: 70bpm Rhythm : Other INDICATION Atrial Fibrillation 2D DIMENSIONS RVDd3.6 (2.9-3.5cm)Left Atrium(2D)4.1 (1.6-4.0cm) IVSd1.7 (0.7-1.1cm)Aortic Root(2D)3.9 (2.0-3.7cm) LVDd4.1 (3.9-5.9cm)LVOT Diameter2.1 (1.8-2.4cm) PWd1.3 (0.7-1.1cm)LVDs3.4 (2.5-4.0cm) FS (%) 18.7 %SV29.6 ml LVEF(%)39.1 (>50%) M-Mode DIMENSIONS Left Atrium(MM)4.08 (2.5-4.0cm)Aortic Root3.42 (2.2-3.7cm) Aortic Valve AoV Peak Joao.227.4cm/sAoV VTI29.6cm AO Peak GR.20.7mmHgLVOT VTI 10.69cm AO Mean GR.9mmHgAVA (VMAX)1.50cm2 BRIAN (VTI)1.30cm2 Mitral Valve MV E Gspqimps51.2cm/sMV DECEL [id number] MV A Xqezenve84.8cm/sE/A Ratio3.2 MV A Qrcqdfmc89in TDI Lateral E' P. V7.14cm/sE/Lateral E'9.7 Tricuspid Valve TR P. [id number]/sRAP [id number] TR Peak Gr.14mcJqGFUD11duFe LEFT VENTRICLE The left ventricle is normal size. There is moderate concentric left ventricular hypertrophy. The Eje ction Fraction is 45-50%. Septal motion consistent with conduction abnormality. Transmitral Doppler f low pattern is Grade III-reversible restrictive diastolic dysfunction. RIGHT VENTRICLE The right ventricle is normal size. There is normal right ventricular wall thickness. The right ventr icular systolic function is normal. ATRIA The left atrium is mildly dilated. The right atrium size is normal. The interatrial septum is intact with no evidence for an atrial septal defect or patent foramen ovale as noted on 2-D or Doppler imagi ng. AORTIC VALVE The aortic valve is trileaflet. The aortic valve is moderately calcified. Doppler and Color Flow reve aled trace aortic regurgitation. There is mild valvular aortic stenosis. Calculated aortic valve area is 1.3 cm2 with maximum pressure gradient of 21 mmHg and mean pressure gradient of 9 mmHg. MITRAL VALVE The mitral valve is thickened but opens well. There is no evidence of mitral valve prolapse. There is no mitral valve stenosis. Doppler and Color-flow revealed mild mitral regurgitation. TRICUSPID VALVE The tricuspid valve is normal in structure and function. Doppler and Color Flow revealed trace tricus pid regurgitation. The PA pressure was estimated at 35 mmHg. There is no tricuspid valve prolapse or vegetation. There is no tricuspid valve stenosis. PULMONIC VALVE The pulmonic valve is not well visualized. GREAT VESSELS The aortic root is mildly enlarged. The ascending aorta is normal in size. The IVC was not visualized . PERICARDIAL EFFUSION There is no evidence of significant pericardial effusion. Critical Notification Critical Value: No <Conclusion> Septal motion consistent with conduction abnormality. The Ejection Fraction is 45-50%. Pacer wire noted RA/RV. Transmitral Doppler flow pattern is Grade III-reversible restrictive diastolic dysfunction. There is mild valvular aortic stenosis. Mild mitral regurgitation. Trace tricuspid regurgitation. The PA pressure was estimated at 35 mmHg. There is no evidence of significant pericardial effusion. Signed by : Jasvir Boggs, Electronically Approved : 06/23/2019 15:29:10
[2019-06-23 18:24] LABS: CLARITY,URINE TURBID; COLOR,URINE BROWN
[2019-06-23] MEDS: IV 1/2 NORMAL SALINE 1,000 ML IV SCH (18:24)
[2019-06-23 18:31] LABS: WBC,URINE TNTC /HPF (0-4)
[2019-06-23 18:35] LABS: BACTERIA,URINE FEW /HPF (0-FEW)
[2019-06-23 19:59] VITALS: BP 113/57
[2019-06-23] MEDS: ATORVASTATIN CALCIUM 40 MG TABLET. PO SCH (21:00)
[2019-06-23 23:20] VITALS: BP 111/54
--- NOTE | 2019-06-24 02:49 | CONS ---
DATE OF CONSULTATION: 06/23/2019 REFERRING PHYSICIAN: Ronen Gonzáles MD REASON FOR CONSULTATION: Antibiotic management. HISTORY OF PRESENT ILLNESS: A 78-year-old male with history of peripheral vascular disease, status post bilateral below-knee amputation in the past with recent left below knee amputation with stump wound, end-stage renal disease, on hemodialysis through right upper extremity fistula, halfway resident, presented with altered mental status and a working diagnosis of urinary tract infection. UA showed pyuria. Leukocyte esterase and nitrite was not performed. The patient had altered mental status. CT head showed no intracranial hemorrhage, advanced atrophic and chronic ischemic change, chronic paranasal sinusitis. He was afebrile. White count was normal. Troponin was borderline elevated. The patient received a dose of IV vancomycin and Zosyn. He underwent a CT of the abdomen and pelvis, which showed cholelithiasis without findings of cholecystitis, urinary bladder wall thickening with subtle surrounding stranding raises question of cystitis, subtle patchy interstitial infiltrates familiar at the right lung base. This morning, the patient is more alert, follows commands, had a low-grade fever last night. He is awaiting MRI of the left BKA stump. As his troponin is high, he is being transferred to Cardiology Unit for non-STEMI evaluation. Also, he is awaiting swallow evaluation. The patient has been evaluated by Vascular Surgery who is planning for possible surgical debridement and wound VAC placement. ID consult has been requested for antibiotic management. 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 SOCIAL HISTORY: snf resident. No alcohol, no smoking. FAMILY HISTORY: Noncontributory. REVIEW OF SYSTEMS: Limited due to altered mental status. PHYSICAL EXAMINATION: VITAL SIGNS: Temperature 99, pulse 76, respiratory rate 18, blood pressure 114/62, oxygen saturation 97% on room air. GENERAL: Lethargic, opens eyes when I called out his name, appears comfortable. No icterus. NECK: Supple. HEART: S1, S2. LUNGS: Clear bilaterally. ABDOMEN: Soft, nontender, obese. Bowel sounds present. EXTREMITIES: Right below knee amputation, scar healthy, left lower extremity amputation stump has a wound with a necrotic area. No bony exposure. No bogginess, excoriation bilateral groin. Right upper extremity AV fistula site looks okay. BACK: Has a superficial stage 1 sacral wound, I was not able to examine as the patient is being transferred to the second floor. No generalized rash, dry skin. 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 LABORATORY DATA: WBC 9.8, hemoglobin 10.9, hematocrit 33.3, platelets 412. ESR 128. Sodium 142, potassium 4.2, chloride 97, bicarbonate 35, BUN 36, creatinine 4.4, glucose 88. Lactate 1.3, calcium 9.2. Troponin 0.191. UA shows wbc's too numerous to count, leukocyte esterase, nitrite not done, turbid. INR 1.7. Microbiology: Blood culture pending. Urine culture pending. IMAGING: Head CT, chronic paranasal sinusitis, advanced atrophy and chronic ischemic changes, no intracranial hemorrhage. Chest x-ray shows low volume with bibasilar subsegmental atelectasis. Abdominal and pelvic CT shows cholelithiasis without findings of cholecystitis, urinary bladder wall thickening with subtle surrounding stranding raises question of cystitis, subtle patchy interstitial infiltrate primarily at the right lung base. Tibia and fibula x-ray shows no acute osseous abnormality. IMPRESSION: 1. Urinary tract infection. No leukocyte esterase or nitrite done. We will repeat UA. The patient does not have any Finley. 2. Altered mental status, likely multifactorial, improving. CT head negative. Awaiting MRI. 3. Left below knee amputation site wound seen by Vascular, awaiting possible debridement, awaiting MRI of left lower extremity. 4. End-stage renal disease, on hemodialysis. 5. Low-grade fevers. 6. snf resident. 7. Anemia of chronic disease. 8. Severe protein-calorie malnutrition. 9. Chronic atrial fibrillation. 10. High troponin with working diagnosis of non-STEMI. 11. Chronic sacral wound, superficial. RECOMMENDATIONS: 1. Continue IV vancomycin and Zosyn, renal dosing. 2. Follow up MRI of left below knee amputation site. 3. Awaiting MRI of the brain. 4. Follow up cultures and susceptibility results. 5. Follow up labs. 6. Continue supportive care. 7. Vascular Surgery is following. 8. Continue local wound care. 9. Continue supportive care. 10. Discussed with RN. Thank you, Dr. Gonzáles, for consulting Infectious Disease to participate in this patient's care. We will follow along with you. MELISSA MOLINA MD DR: TRUNG/nts JOB#: [id number] / [id number]
[2019-06-24 03:22] VITALS: BP 113/58
[2019-06-24] MEDS: PIPERACILLIN/TAZOBACTAM 2.25 GM in IV NORMAL SALINE 50ML 50 ML IV SCH ×3 (05:32→23:30)
[2019-06-24] MEDS ORDERED: VANCOMYCIN RANDOM LEVEL. MC ONE (06:00)
[2019-06-24 06:57] VITALS: BP 128/75
[2019-06-24] MEDS ORDERED: HYDROmorphone 2 MG/ML VIAL IV PRN (07:00)
[2019-06-24] MEDS ORDERED: MORPHINE SULFATE 2 MG/ML VIAL. IV PRN (07:00)
[2019-06-24] MEDS ORDERED: ONDANSETRON PF 4 MG/2 ML VIAL. IV PRN (07:00)
[2019-06-24] MEDS ORDERED: LIDOCAINE 1% PF 2 ML VIAL. ID PRN (07:00)
[2019-06-24] MEDS ORDERED: IV RINGERS,LACTATED 1000ML 1,000 ML IV SCH (07:00)
[2019-06-24] MEDS: PANTOPRAZOLE 40 MG TABLET.DR. PO SCH (07:30)
[2019-06-24] MEDS: CLOPIDOGREL BISULFATE 75 MG TABLET PO SCH (08:00)
[2019-06-24] MEDS ORDERED: ASPIRIN ENTERIC COATED 81 MG TABLET.DR. PO SCH (08:00)
[2019-06-24] MEDS: INSULIN LISPRO 300 UNITS/3 ML VIAL. SQ SCH ×3 (08:00→17:00)
[2019-06-24] MEDS: CYANOCOBALAMIN (VITAMIN B-12) 1,000 MCG TABLET. PO SCH (08:04)
[2019-06-24] MEDS: FOLIC/VIT B COMP W-C (RENAL) TABLET. PO SCH (08:04)
[2019-06-24] MEDS: ALLOPURINOL 100 MG TABLET. PO SCH (08:04)
--- NOTE | 2019-06-24 08:05 | PDOC ---
Infectious Disease Note Subjective: Subjective pt is alert awake, still weak allan attempted, unable to place ,had pus in urine pt c/o leg pain awaiting cardiac w/u and I and D ROS: ROS limited but Negative otherwise. d/w rn Vital Signs: Vital Signs Vital Signs Date Time Temp Pulse Resp B/P (MAP) Pulse Ox O2 Delivery O2 Flow Rate FiO2 06/24/19 06:57 98.4 69 18 128/75 (92) 97 Room Air 98.4 Physical Exam: PHYSICAL EXAM GENERAL: Lethargic, opens eyes when I called out his name, appears comfortable. No icterus. NECK: Supple. HEART: S1, S2. LUNGS: Clear bilaterally. ABDOMEN: Soft, nontender, obese. Bowel sounds present. EXTREMITIES: Right below knee amputation, scar healthy, left lower extremity amputation stump has a wound with a necrotic area. No bony exposure. No bogginess, excoriation bilateral groin. Right upper extremity AV fistula site looks okay. BACK: Has a superficial stage 1 sacral wound, I was not able to examine as the patient is being transferred to the second floor. No generalized rash, dry skin. GARMENT TURNER: Moves upper extremity, answers a few questions, follows a few commands. Medications: Inpatient Meds: Current Medications Medications (Trade) Dose Ordered Sig/Mitzi Start Time Stop Time Status Last Admin Dose Admin Acetaminophen (Tylenol) 650 mg PRN Q6HRS PRN 06/22/19 17:30 Allopurinol (Zyloprim) 100 mg DAILY 06/23/19 09:00 Aspirin (Ecotrin) 81 mg DAILYWBKFT 06/24/19 08:00 Atorvastatin Calcium (Lipitor) 40 mg QHS 06/22/19 21:00 06/22/19 21:37 40 MG Clopidogrel Bisulfate (Plavix) 75 mg DAILYWBKFT 06/23/19 08:00 Cyanocobalamin (Vitamin B-12) 1,000 mcg DAILY 06/23/19 09:00 Enoxaparin Sodium (Lovenox 80mg Syringe) 80 mg 1X ONCE 06/23/19 15:30 06/23/19 15:31 DC 06/23/19 15:16 80 MG Enoxaparin Sodium (Lovenox Per Pharmacy Treatment Dosing) 1 each 1X PRN 06/23/19 14:45 06/23/19 21:00 DC Heparin Sodium (Porcine) (Heparin Sodium) 2,000 unit PRN Q6HRS PRN 06/23/19 08:30 06/23/19 14:53 DC Heparin Sodium/ Dextrose 500 ml @ 19.3 mls/hr CONT PRN 06/23/19 08:30 06/23/19 14:53 DC Hydromorphone HCl (Dilaudid) 0.5 mg PRN Q10MIN PRN 06/24/19 07:00 06/25/19 06:59 Info (Anti-Coagulation Monitoring By Pharmacy) 1 each PRN DAILY PRN 06/23/19 14:30 06/23/19 14:31 1 EACH Info (PHARMACY MONITORING -- do not chart) 1 each PRN DAILY PRN 06/22/19 16:30 UNV Insulin Human Lispro (HumaLOG) 0-6 UNITS BG 400-49... TIDWMEALS 06/23/19 08:00 Lidocaine HCl (Xylocaine-Mpf 1% 2ml Vial) 2 ml PRN 1X PRN 06/24/19 07:00 06/25/19 06:59 Morphine Sulfate (Morphine Sulfate) 1 mg PRN Q10MIN PRN 06/24/19 07:00 06/25/19 06:59 Ondansetron HCl (Zofran) 4 mg PRN Q6HRS PRN 06/24/19 07:00 06/25/19 06:59 Pantoprazole Sodium (Protonix) 40 mg DAILYAC 06/23/19 07:30 Piperacillin Sod/ Tazobactam Sod (Zosyn Per Pharmacy) 1 each PRN DAILY PRN 06/22/19 17:30 Piperacillin Sod/ Tazobactam Sod 2.25 gm/Sodium Chloride 50 ml @ 100 mls/hr Q8HRS 06/22/19 21:00 06/24/19 05:32 100 MLS/HR Ringer's Solution 1,000 ml @ 30 mls/hr Q24H 06/24/19 07:00 06/24/19 18:59 Sodium Chloride 1,000 ml @ 40 mls/hr Q24H 06/22/19 17:30 06/23/19 18:24 40 MLS/HR Vancomycin HCl (Vanco Per Pharmacy) 1 each PRN DAILY PRN 06/22/19 17:30 06/23/19 14:26 1 EACH Vancomycin HCl (Vancomycin Random Level) 1 each 1X ONCE 06/24/19 06:00 06/24/19 06:01 DC 06/24/19 06:37 1 EACH Vancomycin HCl 2 gm/Sodium Chloride 500 ml @ 250 mls/hr 1X ONCE 06/22/19 11:30 06/22/19 13:29 DC 06/22/19 12:32 250 MLS/HR Vitamin B Complex/ Vitamin C (Rosalie-Judah) 1 tab DAILY 06/23/19 09:00 Labs: Lab Laboratory Tests Test 06/23/19 17:36 06/23/19 17:42 Glucose (Fingerstick) 78 mg/dL (70-99) Urine Collection Type U cath Urine Color Brown Urine Clarity Turbid Urine pH Urine Specific [place] Urine Protein mg/dL (NEG-TRACE) Urine Glucose (UA) mg/dL (NEG) Urine Ketones (Stick) mg/dL (NEG) Urine Blood (NEG) Urine Nitrite (NEG) Urine Bilirubin (NEG) Urine Urobilinogen Dipstick mg/dL (0.2 mg/dL) Urine Leukocyte Esterase (NEG) Urine RBC /HPF (0-2) Urine WBC Tntc /HPF (0-4) Urine Bacteria Few /HPF (0-FEW) Objective: Assessment: 1. Urinary tract infection. No leukocyte esterase or nitrite done. Not done again on repeat UA 06/24. urine had pus like appearance when allan placement was attempted, no allan in place 2. Altered mental status, likely multifactorial, improving. CT head negative. 3. Left below knee amputation site wound seen by Vascular, awaiting possible debridement, 4. End-stage renal disease, on hemodialysis. 5. Low-grade fevers. 6. residential resident. 7. Anemia of chronic disease. 8. Severe protein-calorie malnutrition. 9. Chronic atrial fibrillation. 10. High troponin with working diagnosis of non-STEMI. 11. Chronic sacral wound, superficial. Plan: Plan of Care 1. Continue IV vancomycin and Zosyn, renal dosing. 2. Follow up MRI of left below knee amputation site. 3. f/u urine c/s 4. Follow up bloodcultures and susceptibility results. 5. Follow up labs. 6 Vascular Surgery is following. 7 Continue local wound care. 8 Continue supportive care. Discussed with MELISSA GRUBER MD Jun 24, 2019 08:05
--- NOTE | 2019-06-24 09:47 | PDOC2 ---
OC SPARROW 06/24/19 0947: UROLOGY CONSULT Date of Consult Date of Consult DATE: 06/24/19 TIME: 09:45 Reason for Consult Reason for Consult: penile discharge Identification/Chief Complaint Chief Complaint penile discharge Source Source: Caregiver, Chart review, Patient History of Present Illness Reason for Visit: 78yo male presented to ER for AMI. PMH of ESRD on dialysis, DM, and PVD. UA showed pyuria and many bacteria. CTabdomen pelvis showed bladder wall thickening suggestive of cystitis. We were consulted for penile discharged, described by RN as milky red when straight cathed. Patient appears confused today. He states he is feeling well and denies pain. He is unable to relate any history. Past Medical History Cardiovascular: Hyperlipidemia, Other ( peripheral vascular disease) Pulmonary: Other ( sleep apnea) CENTRAL NERVOUS SYSTEM: Periperal neuropathy GI: GERD Heme/Onc: Anemia NOS Psych: Anxiety Infectious disease: Other (osteomyelitis) Renal/: Chronic renal failure ( dialysis), Benign prostatic enlarg., Urinary Incontinence, Other ( nephrolithiasis) Endocrine: Diabetes Dermatology: Cellulitis, Other ( ) Past Surgical History Past Surgical History: Pacemaker, Other (Bilateral BKAs, AV shunt, cardiac catheterization) Family History Family History: Coronary Artery Disease (father) Social History No ALCOHOL: none Drugs: None Lives: Group Home Current Problem List Problems: (1) Pyuria Current Medications Current Medications Current Medications Aspirin (Ecotrin) 81 mg DAILYWBKFT PO ; Start 06/24/19 at 08:00 Aspirin (Ecotrin) 325 mg 1X ONCE PO ; Start 06/23/19 at 10:30; Stop 06/23/19 at 10:31; Status DC Enoxaparin Sodium (Lovenox 80mg Syringe) 80 mg 1X ONCE SQ Last administered on 06/23/19at 15:16; Start 06/23/19 at 15:30; Stop 06/23/19 at 15:31; Status DC Enoxaparin Sodium (Lovenox Per Pharmacy Treatment Dosing) 1 each 1X PRN MC SEE COMMENTS; Start 06/23/19 at 14:45; Stop 06/23/19 at 21:00; Status DC Hydromorphone HCl (Dilaudid) 0.5 mg PRN Q10MIN PRN IV SEV PAIN, Second choice; Start 06/24/19 at 07:00; Stop 06/25/19 at 06:59 Info (Anti-Coagulation Monitoring By Pharmacy) 1 each PRN DAILY PRN MC SEE COMMENTS Last administered on 06/23/19at 14:31; Start 06/23/19 at 14:30 Lidocaine HCl (Xylocaine-Mpf 1% 2ml Vial) 2 ml PRN 1X PRN ID PRIOR TO IV START; Start 06/24/19 at 07:00; Stop 06/25/19 at 06:59 Morphine Sulfate (Morphine Sulfate) 1 mg PRN Q10MIN PRN IV SEVERE PAIN 7-10; Start 06/24/19 at 07:00; Stop 06/25/19 at 06:59 Ondansetron HCl (Zofran) 4 mg PRN Q6HRS PRN IV NAUSEA/VOMITING; Start 06/24/19 at 07:00; Stop 06/25/19 at 06:59 Ringer's Solution 1,000 ml @ 30 mls/hr Q24H IV ; Start 06/24/19 at 07:00; Stop 06/24/19 at 18:59 Vancomycin HCl (Vancomycin Random Level) 1 each 1X ONCE MC Last administered on 06/24/19at 06:37; Start 06/24/19 at 06:00; Stop 06/24/19 at 06:01; Status DC Allergies Allergies: Coded Allergies: I S O L A T I O N *CONTACT* (Verified Allergy, Unknown, 06/23/19) mrsa/vre No Known Medication Allergies (Verified Allergy, Unknown, 06/23/19) ROS Review Of Systems: Unable to obtain d/t patient confusion Physical Exam Physical Exam: General: Pleasant, no acute distress Eyes: conjunctiva anicteric, eyes full range of motion ENT: moist oral mucosa, normal dentition Neck: Trachea midline, no masses Respiratory: unlabored breathing, not using accessory muscles Cardiovascular: Regular extremity pulses Abdomen: nontender, nondistended, no hepatosplenomegaly, no masses : normal male genitalia. no visible discharge or wounds. Skin: no rashes or skin lesions on visualized skin Psych: confused Vitals VITALS Vital Signs Date Time Temp Pulse Resp B/P (MAP) Pulse Ox O2 Delivery O2 Flow Rate FiO2 06/24/19 06:57 98.4 69 18 128/75 (92) 97 Room Air 98.4 Labs Labs Laboratory Tests Test 9/9/19 10:40 06/22/19 11:35 06/22/19 11:50 06/22/19 16:05 White Blood Count 10.5 x10^3/uL (4.0-11.0) Red Blood Count 3.54 x10^6/uL (4.30-5.70) Hemoglobin 10.1 g/dL (13.0-17.5) Hematocrit 31.0 % (39.0-53.0) Mean Corpuscular Volume 88 fL (79-100) Mean Corpuscular Hemoglobin 29 pg (25-35) Mean Corpuscular Hemoglobin Concent 33 g/dL (31-37) Red Cell Distribution Width 18.6 % (11.5-14.5) Platelet Count 407 x10^3/uL (140-400) Neutrophils (%) (Auto) 70 % (31-73) Lymphocytes (%) (Auto) 14 % (24-48) Monocytes (%) (Auto) 9 % (0-9) Eosinophils (%) (Auto) 6 % (0-3) Basophils (%) (Auto) 1 % (0-3) Neutrophils # (Auto) 7.4 x10^3/uL (1.8-7.7) Lymphocytes # (Auto) 1.4 x10^3/uL (1.0-4.8) Monocytes # (Auto) 0.9 x10^3/uL (0.0-1.1) Eosinophils # (Auto) 0.7 x10^3/uL (0.0-0.7) Basophils # (Auto) 0.1 x10^3/uL (0.0-0.2) Erythrocyte Sedimentation Rate 128 (0-15) Urine Collection Type U cath Urine Color Red Urine Clarity Turbid Urine pH Urine Specific Wright Urine Protein mg/dL (NEG-TRACE) Urine Glucose (UA) mg/dL (NEG) Urine Ketones (Stick) mg/dL (NEG) Urine Blood (NEG) Urine Nitrite (NEG) Urine Bilirubin (NEG) Urine Urobilinogen Dipstick mg/dL (0.2 mg/dL) Urine Leukocyte Esterase (NEG) Urine RBC >40 /HPF (0-2) Urine WBC Tntc /HPF (0-4) Urine Bacteria Many /HPF (0-FEW) Prothrombin Time 19.7 SEC (11.7-14.0) Prothromb Time International Ratio 1.7 (0.8-1.1) Sodium Level 141 mmol/L (136-145) Potassium Level 4.4 mmol/L (3.5-5.1) Chloride Level 96 mmol/L (98-107) Carbon Dioxide Level 36 mmol/L (21-32) Anion Gap 9 (6-14) Blood Urea Nitrogen 78 mg/dL (8-26) Creatinine 7.1 mg/dL (0.7-1.3) Estimated GFR (Cockcroft-Gault) 9.1 BUN/Creatinine Ratio 11 (6-20) Glucose Level 149 mg/dL (70-99) Lactic Acid Level 1.3 mmol/L (0.4-2.0) Calcium Level 9.3 mg/dL (8.5-10.1) Magnesium Level 2.1 mg/dL (1.8-2.4) Total Bilirubin 0.5 mg/dL (0.2-1.0) Aspartate Amino Transf (AST/SGOT) 29 U/L (15-37) Alanine Aminotransferase (ALT/SGPT) 20 U/L (16-63) Alkaline Phosphatase 162 U/L (46-116) Troponin I Quantitative 0.293 ng/mL (0.000-0.055) 0.217 ng/mL (0.000-0.055) C-Reactive Protein, Quantitative 185.7 mg/L (0-3.3) Total Protein 7.1 g/dL (6.4-8.2) Albumin 2.1 g/dL (3.4-5.0) Albumin/Globulin Ratio 0.4 (1.0-1.7) Test 06/22/19 21:45 06/23/19 03:20 06/23/19 03:25 06/23/19 17:36 Troponin I Quantitative 0.191 ng/mL (0.000-0.055) Sodium Level 142 mmol/L (136-145) Potassium Level 4.2 mmol/L (3.5-5.1) Chloride Level 97 mmol/L (98-107) Carbon Dioxide Level 35 mmol/L (21-32) Anion Gap 10 (6-14) Blood Urea Nitrogen 36 mg/dL (8-26) Creatinine 4.4 mg/dL (0.7-1.3) Estimated GFR (Cockcroft-Gault) 15.8 Glucose Level 88 mg/dL (70-99) Calcium Level 9.2 mg/dL (8.5-10.1) Triglycerides Level 76 mg/dL (0-150) Cholesterol Level 109 mg/dL (0-200) LDL Cholesterol, Calculated 69 mg/dL (0-100) VLDL Cholesterol, Calculated 15 mg/dL (0-40) Non-HDL Cholesterol Calculated 84 mg/dL (0-129) HDL Cholesterol 25 mg/dL (40-60) Cholesterol/HDL Ratio 4.4 White Blood Count 9.8 x10^3/uL (4.0-11.0) Red Blood Count 3.76 x10^6/uL (4.30-5.70) Hemoglobin 10.9 g/dL (13.0-17.5) Hematocrit 33.3 % (39.0-53.0) Mean Corpuscular Volume 89 fL (79-100) Mean Corpuscular Hemoglobin 29 pg (25-35) Mean Corpuscular Hemoglobin Concent 33 g/dL (31-37) Red Cell Distribution Width 18.6 % (11.5-14.5) Platelet Count 412 x10^3/uL (140-400) Neutrophils (%) (Auto) 67 % (31-73) Lymphocytes (%) (Auto) 15 % (24-48) Monocytes (%) (Auto) 10 % (0-9) Eosinophils (%) (Auto) 7 % (0-3) Basophils (%) (Auto) 1 % (0-3) Neutrophils # (Auto) 6.6 x10^3/uL (1.8-7.7) Lymphocytes # (Auto) 1.5 x10^3/uL (1.0-4.8) Monocytes # (Auto) 1.0 x10^3/uL (0.0-1.1) Eosinophils # (Auto) 0.6 x10^3/uL (0.0-0.7) Basophils # (Auto) 0.1 x10^3/uL (0.0-0.2) Glucose (Fingerstick) 78 mg/dL (70-99) Test 06/23/19 17:42 Urine Collection Type U cath Urine Color Brown Urine Clarity Turbid Urine pH Urine Specific Wright Urine Protein mg/dL (NEG-TRACE) Urine Glucose (UA) mg/dL (NEG) Urine Ketones (Stick) mg/dL (NEG) Urine Blood (NEG) Urine Nitrite (NEG) Urine Bilirubin (NEG) Urine Urobilinogen Dipstick mg/dL (0.2 mg/dL) Urine Leukocyte Esterase (NEG) Urine RBC /HPF (0-2) Urine WBC Tntc /HPF (0-4) Urine Bacteria Few /HPF (0-FEW) Laboratory Tests Test 06/23/19 17:36 06/23/19 17:42 Glucose (Fingerstick) 78 mg/dL (70-99) Urine Collection Type U cath Urine Color Brown Urine Clarity Turbid Urine pH Urine Specific Wright Urine Protein mg/dL (NEG-TRACE) Urine Glucose (UA) mg/dL (NEG) Urine Ketones (Stick) mg/dL (NEG) Urine Blood (NEG) Urine Nitrite (NEG) Urine Bilirubin (NEG) Urine Urobilinogen Dipstick mg/dL (0.2 mg/dL) Urine Leukocyte Esterase (NEG) Urine RBC /HPF (0-2) Urine WBC Tntc /HPF (0-4) Urine Bacteria Few /HPF (0-FEW) Assessment/Plan Assessment/Plan Penile discharged likely pyuria UA showed WBC too numerous to count, full analysis unable to be completed Insert allan catheter and maintain for 2-3 days Will try to obtain another UA from allan abx per ID team Will continue to follow TYLOR BURNETTE MD 06/24/19 1830: UROLOGY CONSULT Assessment/Plan Assessment/Plan High risk for pyocystitis given ckd, mobility, HD status, immunosupression, etc. Ok w CBI for now to drain any pus/sediments. VT at discharge. Will need diflucan for funguria. OC SPARROW Jun 24, 2019 09:47 TYLOR BURNETTE MD Jun 24, 2019 18:30
--- NOTE | 2019-06-24 10:06 | PDOC ---
PROGRESS NOTES Subjective Subjective talking but lethargic. pus from urine and allan to be placed. on iv fluids. failed swallow eval. echo noted. LVEF 45% and diastolic dysfunction. npo due to oropharyngeal dysphagia Objective Objective Vital Signs Date Time Temp Pulse Resp B/P (MAP) Pulse Ox O2 Delivery O2 Flow Rate FiO2 06/24/19 06:57 98.4 69 18 128/75 (92) 97 Room Air 98.4 Intake and Output 06/24/19 07:00 Intake Total 180 ml Balance 180 ml Intake Oral 0 ml IV Total 100 ml Blood Product IV Normal Saline Flush 80 ml # Bowel Movements 2 Physical Exam Abdomen: Soft Heart: Normal S1, Normal S2 Extremities: Other (bilateral BKA) General: Alert, Other (lethargic) HEENT: Atraumatic Lungs: Clear to auscultation Neuro: Other (weak voice) Psych/Mental Status: Mood NL Skin: No rashes Assessment Assessment Problems. metabolic encephalopathy. 2. Pyuria, consistent with urinary tract infection. pus in urine 3. Bilateral below-knee amputation. 4. left below-knee amputation stump wound 5. Diabetes mellitus type 2. 6. Peripheral arterial disease. 7. End-stage renal disease, on hemodialysis. m-w-f 8. paroxysmal atrial fibrillation. in nsr. not a coumadin candidate. recent hx of retroperitoneal bleed on anticoagulants and fall risk. 9. Severe protein-calorie malnutrition. 10. Anemia of chronic disease. NSTEMMI oropharyngeal dysphagia Medical Problems: (1) Altered mental status Status: Acute (2) Anemia in chronic illness Status: Chronic (3) Chronic a-fib Status: Chronic (4) DM2 (diabetes mellitus, type 2) Status: Chronic (5) ESRD (end stage renal disease) Status: Acute (6) Peripheral artery disease Status: Chronic (7) Severe protein-calorie malnutrition Status: Chronic (8) UTI (urinary tract infection) Status: Acute Plan Plan of Care hemodialysis today place allan catheter iv fluids MRI of left BKA stump iv vancomycin and zosyn await blood and urine cultures speech therapy following wound care sq heparin for dvt prophylaxis Comment Review of Relevant I have reviewed the following items soumya (where applicable) has been applied. Labs Laboratory Tests Test 06/22/19 10:40 06/22/19 11:35 06/22/19 11:50 06/22/19 16:05 White Blood Count 10.5 x10^3/uL (4.0-11.0) Red Blood Count 3.54 x10^6/uL (4.30-5.70) Hemoglobin 10.1 g/dL (13.0-17.5) Hematocrit 31.0 % (39.0-53.0) Mean Corpuscular Volume 88 fL (79-100) Mean Corpuscular Hemoglobin 29 pg (25-35) Mean Corpuscular Hemoglobin Concent 33 g/dL (31-37) Red Cell Distribution Width 18.6 % (11.5-14.5) Platelet Count 407 x10^3/uL (140-400) Neutrophils (%) (Auto) 70 % (31-73) Lymphocytes (%) (Auto) 14 % (24-48) Monocytes (%) (Auto) 9 % (0-9) Eosinophils (%) (Auto) 6 % (0-3) Basophils (%) (Auto) 1 % (0-3) Neutrophils # (Auto) 7.4 x10^3/uL (1.8-7.7) Lymphocytes # (Auto) 1.4 x10^3/uL (1.0-4.8) Monocytes # (Auto) 0.9 x10^3/uL (0.0-1.1) Eosinophils # (Auto) 0.7 x10^3/uL (0.0-0.7) Basophils # (Auto) 0.1 x10^3/uL (0.0-0.2) Erythrocyte Sedimentation Rate 128 (0-15) Urine Collection Type U cath Urine Color Red Urine Clarity Turbid Urine pH Urine Specific [place] Urine Protein mg/dL (NEG-TRACE) Urine Glucose (UA) mg/dL (NEG) Urine Ketones (Stick) mg/dL (NEG) Urine Blood (NEG) Urine Nitrite (NEG) Urine Bilirubin (NEG) Urine Urobilinogen Dipstick mg/dL (0.2 mg/dL) Urine Leukocyte Esterase (NEG) Urine RBC >40 /HPF (0-2) Urine WBC Tntc /HPF (0-4) Urine Bacteria Many /HPF (0-FEW) Prothrombin Time 19.7 SEC (11.7-14.0) Prothromb Time International Ratio 1.7 (0.8-1.1) Sodium Level 141 mmol/L (136-145) Potassium Level 4.4 mmol/L (3.5-5.1) Chloride Level 96 mmol/L (98-107) Carbon Dioxide Level 36 mmol/L (21-32) Anion Gap 9 (6-14) Blood Urea Nitrogen 78 mg/dL (8-26) Creatinine 7.1 mg/dL (0.7-1.3) Estimated GFR (Cockcroft-Gault) 9.1 BUN/Creatinine Ratio 11 (6-20) Glucose Level 149 mg/dL (70-99) Lactic Acid Level 1.3 mmol/L (0.4-2.0) Calcium Level 9.3 mg/dL (8.5-10.1) Magnesium Level 2.1 mg/dL (1.8-2.4) Total Bilirubin 0.5 mg/dL (0.2-1.0) Aspartate Amino Transf (AST/SGOT) 29 U/L (15-37) Alanine Aminotransferase (ALT/SGPT) 20 U/L (16-63) Alkaline Phosphatase 162 U/L (46-116) Troponin I Quantitative 0.293 ng/mL (0.000-0.055) 0.217 ng/mL (0.000-0.055) C-Reactive Protein, Quantitative 185.7 mg/L (0-3.3) Total Protein 7.1 g/dL (6.4-8.2) Albumin 2.1 g/dL (3.4-5.0) Albumin/Globulin Ratio 0.4 (1.0-1.7) Test 06/22/19 21:45 06/23/19 03:20 06/23/19 03:25 06/23/19 17:36 Troponin I Quantitative 0.191 ng/mL (0.000-0.055) Sodium Level 142 mmol/L (136-145) Potassium Level 4.2 mmol/L (3.5-5.1) Chloride Level 97 mmol/L (98-107) Carbon Dioxide Level 35 mmol/L (21-32) Anion Gap 10 (6-14) Blood Urea Nitrogen 36 mg/dL (8-26) Creatinine 4.4 mg/dL (0.7-1.3) Estimated GFR (Cockcroft-Gault) 15.8 Glucose Level 88 mg/dL (70-99) Calcium Level 9.2 mg/dL (8.5-10.1) Triglycerides Level 76 mg/dL (0-150) Cholesterol Level 109 mg/dL (0-200) LDL Cholesterol, Calculated 69 mg/dL (0-100) VLDL Cholesterol, Calculated 15 mg/dL (0-40) Non-HDL Cholesterol Calculated 84 mg/dL (0-129) HDL Cholesterol 25 mg/dL (40-60) Cholesterol/HDL Ratio 4.4 White Blood Count 9.8 x10^3/uL (4.0-11.0) Red Blood Count 3.76 x10^6/uL (4.30-5.70) Hemoglobin 10.9 g/dL (13.0-17.5) Hematocrit 33.3 % (39.0-53.0) Mean Corpuscular Volume 89 fL (79-100) Mean Corpuscular Hemoglobin 29 pg (25-35) Mean Corpuscular Hemoglobin Concent 33 g/dL (31-37) Red Cell Distribution Width 18.6 % (11.5-14.5) Platelet Count 412 x10^3/uL (140-400) Neutrophils (%) (Auto) 67 % (31-73) Lymphocytes (%) (Auto) 15 % (24-48) Monocytes (%) (Auto) 10 % (0-9) Eosinophils (%) (Auto) 7 % (0-3) Basophils (%) (Auto) 1 % (0-3) Neutrophils # (Auto) 6.6 x10^3/uL (1.8-7.7) Lymphocytes # (Auto) 1.5 x10^3/uL (1.0-4.8) Monocytes # (Auto) 1.0 x10^3/uL (0.0-1.1) Eosinophils # (Auto) 0.6 x10^3/uL (0.0-0.7) Basophils # (Auto) 0.1 x10^3/uL (0.0-0.2) Glucose (Fingerstick) 78 mg/dL (70-99) Test 06/23/19 17:42 Urine Collection Type U cath Urine Color Brown Urine Clarity Turbid Urine pH Urine Specific [place] Urine Protein mg/dL (NEG-TRACE) Urine Glucose (UA) mg/dL (NEG) Urine Ketones (Stick) mg/dL (NEG) Urine Blood (NEG) Urine Nitrite (NEG) Urine Bilirubin (NEG) Urine Urobilinogen Dipstick mg/dL (0.2 mg/dL) Urine Leukocyte Esterase (NEG) Urine RBC /HPF (0-2) Urine WBC Tntc /HPF (0-4) Urine Bacteria Few /HPF (0-FEW) Laboratory Tests Test 06/23/19 17:36 06/23/19 17:42 Glucose (Fingerstick) 78 mg/dL (70-99) Urine Collection Type U cath Urine Color Brown Urine Clarity Turbid Urine pH Urine Specific [place] Urine Protein mg/dL (NEG-TRACE) Urine Glucose (UA) mg/dL (NEG) Urine Ketones (Stick) mg/dL (NEG) Urine Blood (NEG) Urine Nitrite (NEG) Urine Bilirubin (NEG) Urine Urobilinogen Dipstick mg/dL (0.2 mg/dL) Urine Leukocyte Esterase (NEG) Urine RBC /HPF (0-2) Urine WBC Tntc /HPF (0-4) Urine Bacteria Few /HPF (0-FEW) Microbiology 06/22/19 Blood Culture - Preliminary, Resulted NO GROWTH AFTER 1 DAY Medications Current Medications Vancomycin HCl 250 ml @ 250 mls/hr 1X ONCE IV ; Start 06/22/19 at 10:45; Stop 06/22/19 at 11:44; Status UNV Piperacillin Sod/ Tazobactam Sod 2.25 gm/Sodium Chloride 50 ml @ 100 mls/hr 1X ONCE IV Last administered on 06/22/19at 11:55; Start 06/22/19 at 10:45; Stop 06/22/19 at 11:14; Status DC Sodium Chloride 1,000 ml @ 100 mls/hr Q10H IV Last administered on 06/22/19at 11:55; Start 06/22/19 at 10:38; Stop 06/22/19 at 20:37; Status DC Vancomycin HCl 2 gm/Sodium Chloride 500 ml @ 250 mls/hr 1X ONCE IV Last administered on 06/22/19at 12:32; Start 06/22/19 at 11:30; Stop 06/22/19 at 13:29; Status DC Info (PHARMACY MONITORING -- do not chart) 1 each PRN DAILY PRN MC SEE COMMENTS; Start 06/22/19 at 16:30 Info (PHARMACY MONITORING -- do not chart) 1 each PRN DAILY PRN MC SEE COMMENTS; Start 06/22/19 at 16:30; Status UNV Sodium Chloride 1,000 ml @ 40 mls/hr Q24H IV Last administered on 06/23/19at 18:24; Start 06/22/19 at 17:30 Vancomycin HCl (Vanco Per Pharmacy) 1 each PRN DAILY PRN MC SEE COMMENTS Last administered on 06/23/19at 14:26; Start 06/22/19 at 17:30 Piperacillin Sod/ Tazobactam Sod (Zosyn Per Pharmacy) 1 each PRN DAILY PRN MC SEE COMMENTS; Start 06/22/19 at 17:30 Acetaminophen (Tylenol) 650 mg PRN Q6HRS PRN PO MILD PAIN / TEMP; Start 06/22/19 at 17:30 Ondansetron HCl (Zofran) 4 mg PRN Q6HRS PRN IV NAUSEA/VOMITING; Start 06/22/19 at 17:30 Clopidogrel Bisulfate (Plavix) 75 mg DAILYWBKFT PO ; Start 06/23/19 at 08:00 Vitamin B Complex/ Vitamin C (Rosalie-Judah) 1 tab DAILY PO ; Start 06/23/19 at 09:00 Allopurinol (Zyloprim) 100 mg DAILY PO ; Start 06/23/19 at 09:00 Atorvastatin Calcium (Lipitor) 40 mg QHS PO Last administered on 06/22/19at 21:37; Start 06/22/19 at 21:00 Pantoprazole Sodium (Protonix) 40 mg DAILYAC PO ; Start 06/23/19 at 07:30 Cyanocobalamin (Vitamin B-12) 1,000 mcg DAILY PO ; Start 06/23/19 at 09:00 Piperacillin Sod/ Tazobactam Sod 2.25 gm/Sodium Chloride 50 ml @ 100 mls/hr Q8HRS IV Last administered on 06/24/19at 05:32; Start 06/22/19 at 21:00 Heparin Sodium (Porcine) (Heparin Sodium) 5,000 unit BID SQ Last administered on 06/22/19at 21:37; Start 06/22/19 at 21:00; Stop 06/23/19 at 08:23; Status DC Insulin Human Lispro (HumaLOG) 0-6 UNITS BG 400-49... TIDWMEALS SQ ; Start 06/23/19 at 08:00 Vancomycin HCl (Vancomycin Random Level) 1 each 1X ONCE MC Last administered on 06/24/19at 06:37; Start 06/24/19 at 06:00; Stop 06/24/19 at 06:01; Status DC Heparin Sodium/ Dextrose 500 ml @ 19.3 mls/hr CONT PRN IV SEE I/O RECORD; Start 06/23/19 at 08:30; Stop 06/23/19 at 14:53; Status DC Heparin Sodium (Porcine) (Heparin Sodium) 2,000 unit PRN Q6HRS PRN IV FOR UFH LEVEL LESS THAN 0.2; Start 06/23/19 at 08:30; Stop 06/23/19 at 14:53; Status DC Aspirin (Ecotrin) 325 mg 1X ONCE PO ; Start 06/23/19 at 10:30; Stop 06/23/19 at 10:31; Status DC Aspirin (Ecotrin) 81 mg DAILYWBKFT PO ; Start 06/24/19 at 08:00 Ondansetron HCl (Zofran) 4 mg PRN Q6HRS PRN IV NAUSEA/VOMITING; Start 06/24/19 at 07:00; Stop 06/25/19 at 06:59 Morphine Sulfate (Morphine Sulfate) 1 mg PRN Q10MIN PRN IV SEVERE PAIN 7-10; Start 06/24/19 at 07:00; Stop 06/25/19 at 06:59 Ringer's Solution 1,000 ml @ 30 mls/hr Q24H IV ; Start 06/24/19 at 07:00; Stop 06/24/19 at 18:59 Lidocaine HCl (Xylocaine-Mpf 1% 2ml Vial) 2 ml PRN 1X PRN ID PRIOR TO IV START; Start 06/24/19 at 07:00; Stop 06/25/19 at 06:59 Hydromorphone HCl (Dilaudid) 0.5 mg PRN Q10MIN PRN IV SEV PAIN, Second choice; Start 06/24/19 at 07:00; Stop 06/25/19 at 06:59 Info (Anti-Coagulation Monitoring By Pharmacy) 1 each PRN DAILY PRN MC SEE COMMENTS Last administered on 06/23/19at 14:31; Start 06/23/19 at 14:30 Enoxaparin Sodium (Lovenox Per Pharmacy Treatment Dosing) 1 each 1X PRN MC SEE COMMENTS; Start 06/23/19 at 14:45; Stop 06/23/19 at 21:00; Status DC Enoxaparin Sodium (Lovenox 80mg Syringe) 80 mg 1X ONCE SQ Last administered on 06/23/19at 15:16; Start 06/23/19 at 15:30; Stop 06/23/19 at 15:31; Status DC Active Scripts Active Lynn 5-325 Tablet (Acetaminophen/Hydrocodone Bitart) 1 Each Tablet 0.5 Tab PO Q4HRS Zyvox (Linezolid) 600 Mg Tablet 600 Mg PO BID 4 Days Amox Tr-K Clv 500-125 Mg Tab (Amoxicillin/Potassium Clav) 1 Each Tablet 1 Tab PO DAILY 4 Days Tramadol Hcl 50 Mg Tablet 50 Mg PO PRN Q6HRS PRN Ondansetron Odt (Ondansetron) 4 Mg Tab.rapdis 4 Mg PO Q6HRS PRN Humalog (Insulin Lispro) 100 Unit/1 Ml Insuln.pen 0 Units SQ TIDWMEALS 30 Days BG 150-199= 1 units 200-299= 2 units 300-399= 4 units 400-499= 6 units ac tid sliding scale Reported Omeprazole 20 Mg Tablet.dr 1 Tab PO DAILY Vitamin D3 (Cholecalciferol (Vitamin D3)) 1,000 Unit Tablet 1 Tab PO DAILY Vitamin B-12 (Cyanocobalamin (Vitamin B-12)) 1,000 Mcg Tablet 1 Tab PO DAILY Senna (Sennosides) 8.6 Mg Tablet 8.6 Mg PO PRN DAILY PRN 2 tabs Renvela (Sevelamer Carbonate) 800 Mg Tablet 800 Mg PO TIDWMEALS Renal Caps Softgel (Folic Acid/Vitamin B Comp W-C) 1 Mg Capsule 1 Mg PO DAILY Reglan (Metoclopramide Hcl) 10 Mg Tablet 5 Mg PO TID Probiotic (Lactobacillus Acidophilus) 1 Each Capsule 1 Each PO BID Milk Of Magnesia (Magnesium Hydroxide) 400 Mg/5 Ml Oral.susp 400 Mg PO PRN DAILY PRN Lipitor (Atorvastatin Calcium) 40 Mg Tablet 1 Tab PO QHS Humalog (Insulin Lispro) 100 Unit/1 Ml Insuln.pen 100 Unit SQ TIDBFRMEAL 150-199=1 unit 200-299=2 units 300-399=4 units 100-499=6 units Clopidogrel (Clopidogrel Bisulfate) 75 Mg Tablet 1 Tab PO DAILY Duoneb 0.5-3(2.5) Mg/3 Ml (Albuterol/Ipratropium) 3 Ml Ampul.neb 3 Ml NEB PRN Q4HRS PRN Lac-Hydrin Five (Ammonium Lactate) 226 Gm Lotion 226 Gm TP BID Allopurinol 100 Mg Tablet 1 Tab PO DAILY Tylenol (Acetaminophen) 325 Mg Tablet 1 Tab PO PRN Q4HRS Aspirin 81 Mg Tab.chew 81 Mg PO DAILY Vitals/I & O Vital Sign - Last 24 Hours 06/23/19 06/23/19 06/23/19 06/23/19 10:24 15:00 19:59 23:20 Temp 96.3 99.6 99.4 99.2 96.3 99.6 99.4 99.2 Pulse 65 69 70 74 Resp 18 18 18 18 B/P (MAP) 105/56 (72) 125/62 (83) 113/57 (75) 111/54 (73) Pulse Ox 99 100 96 96 O2 Delivery Room Air Room Air Room Air Room Air 06/24/19 06/24/19 03:22 06:57 Temp 98.3 98.4 98.3 98.4 Pulse 74 69 Resp 18 18 B/P (MAP) 113/58 (76) 128/75 (92) Pulse Ox 98 97 O2 Delivery Room Air Room Air Intake and Output 06/23/19 06/23/19 06/24/19 15:00 23:00 07:00 Intake Total 80 ml 50 ml 50 ml Balance 80 ml 50 ml 50 ml SAM OLMOS MD Jun 24, 2019 10:05
[2019-06-24 10:31] VITALS: BP 130/64
--- NOTE | 2019-06-24 10:39 | PDOC ---
Renal-Progress Notes Subjective Notes Notes MORE ALERT BUT STILL CONFUSED History of Present Illness Hx of present illness STABLE Vitals Vitals Vital Signs Date Time Temp Pulse Resp B/P (MAP) Pulse Ox O2 Delivery O2 Flow Rate FiO2 06/24/19 10:31 98.2 74 18 130/64 (86) 99 Room Air 98.2 Weight Weight [ ] I.O. Intake and Output Intake and Output 06/24/19 07:00 Intake Total 180 ml Balance 180 ml Intake Oral 0 ml IV Total 100 ml Blood Product IV Normal Saline Flush 80 ml # Bowel Movements 2 Labs Labs Laboratory Tests Test 06/23/19 17:36 06/23/19 17:42 Glucose (Fingerstick) 78 mg/dL (70-99) Urine Collection Type U cath Urine Color Brown Urine Clarity Turbid Urine pH Urine Specific [place] Urine Protein mg/dL (NEG-TRACE) Urine Glucose (UA) mg/dL (NEG) Urine Ketones (Stick) mg/dL (NEG) Urine Blood (NEG) Urine Nitrite (NEG) Urine Bilirubin (NEG) Urine Urobilinogen Dipstick mg/dL (0.2 mg/dL) Urine Leukocyte Esterase (NEG) Urine RBC /HPF (0-2) Urine WBC Tntc /HPF (0-4) Urine Bacteria Few /HPF (0-FEW) Micro Micro Microbiology 06/22/19 Blood Culture - Preliminary, Resulted NO GROWTH AFTER 1 DAY Review of Systems Constitutional: yes: other (CONFUSED) Physical Exam General Appearance: no apparent distress Skin: warm Respiratory: bilateral CTA Heart: S1S2 Abdomen: soft, bowel sounds present Genitourinary: bladder flat Extremities: pulses present Neurology: confused Assessment Assessment IMP UTI ? INFECTED BKA STUMP ANEMIA DM II HTN ESRD MET ENCEPHALOPATHY PLAN CONT ANTIBIOTICS WOUND CARE HD TODAY UF TO DW [employer] PLAC[employer] MAY BENEFIT FROM [facility] FOLLOWING D/W NANCY EMMANUEL MD Jun 24, 2019 10:39
--- NOTE | 2019-06-24 10:46 | PDOC ---
PROGRESS NOTES Assessment Problems Medical Problems: (1) Altered mental status Status: Acute (2) Anemia in chronic illness Status: Chronic (3) Chronic a-fib Status: Chronic (4) DM2 (diabetes mellitus, type 2) Status: Chronic (5) ESRD (end stage renal disease) Status: Acute (6) Peripheral artery disease Status: Chronic (7) Severe protein-calorie malnutrition Status: Chronic (8) UTI (urinary tract infection) Status: Acute Metabolic encephalopathy with probable underlying dementia, related to urinary tract infection and leg wounds, no evidence of primary central nervous system infection, new stroke, or ongoing seizure activity. Note that he has elevated troponin and ESR Note failed swallow study Plan Treat medical diseases Holding on additional neurological studies, I disallowed the brain MRI. Subjective no complaints, wants to eat Objective Vital Signs Date Time Temp Pulse Resp B/P (MAP) Pulse Ox O2 Delivery O2 Flow Rate FiO2 06/24/19 06:57 98.4 69 18 128/75 (92) 97 Room Air 98.4 Intake and Output 06/24/19 07:00 Intake Total 180 ml Balance 180 ml Intake Oral 0 ml IV Total 100 ml Blood Product IV Normal Saline Flush 80 ml # Bowel Movements 2 PHYSICAL EXAM Alert. Oriented to place and person, not date. PERRL. EOMI. CN: no focal findings. Muscle tone: normal. Muscle strength: 4/5 DTR: 0-1+ Plantar reflex: Bilateral below the knee amputations Gait: not examined in bed. Sensory exam: no abnormal findings. No cerebellar signs elicited. Review of Relevant I have reviewed the following items soumya (where applicable) has been applied. Labs Laboratory Tests Test 06/22/19 11:35 06/22/19 11:50 06/22/19 16:05 06/22/19 21:45 Urine Collection Type U cath Urine Color Red Urine Clarity Turbid Urine pH Urine Specific [place] Urine Protein mg/dL (NEG-TRACE) Urine Glucose (UA) mg/dL (NEG) Urine Ketones (Stick) mg/dL (NEG) Urine Blood (NEG) Urine Nitrite (NEG) Urine Bilirubin (NEG) Urine Urobilinogen Dipstick mg/dL (0.2 mg/dL) Urine Leukocyte Esterase (NEG) Urine RBC >40 /HPF (0-2) Urine WBC Tntc /HPF (0-4) Urine Bacteria Many /HPF (0-FEW) Prothrombin Time 19.7 SEC (11.7-14.0) Prothromb Time International Ratio 1.7 (0.8-1.1) Sodium Level 141 mmol/L (136-145) Potassium Level 4.4 mmol/L (3.5-5.1) Chloride Level 96 mmol/L (98-107) Carbon Dioxide Level 36 mmol/L (21-32) Anion Gap 9 (6-14) Blood Urea Nitrogen 78 mg/dL (8-26) Creatinine 7.1 mg/dL (0.7-1.3) Estimated GFR (Cockcroft-Gault) 9.1 BUN/Creatinine Ratio 11 (6-20) Glucose Level 149 mg/dL (70-99) Lactic Acid Level 1.3 mmol/L (0.4-2.0) Calcium Level 9.3 mg/dL (8.5-10.1) Magnesium Level 2.1 mg/dL (1.8-2.4) Total Bilirubin 0.5 mg/dL (0.2-1.0) Aspartate Amino Transf (AST/SGOT) 29 U/L (15-37) Alanine Aminotransferase (ALT/SGPT) 20 U/L (16-63) Alkaline Phosphatase 162 U/L (46-116) Troponin I Quantitative 0.293 ng/mL (0.000-0.055) 0.217 ng/mL (0.000-0.055) 0.191 ng/mL (0.000-0.055) C-Reactive Protein, Quantitative 185.7 mg/L (0-3.3) Total Protein 7.1 g/dL (6.4-8.2) Albumin 2.1 g/dL (3.4-5.0) Albumin/Globulin Ratio 0.4 (1.0-1.7) Test 06/23/19 03:20 06/23/19 03:25 06/23/19 17:36 06/23/19 17:42 Sodium Level 142 mmol/L (136-145) Potassium Level 4.2 mmol/L (3.5-5.1) Chloride Level 97 mmol/L (98-107) Carbon Dioxide Level 35 mmol/L (21-32) Anion Gap 10 (6-14) Blood Urea Nitrogen 36 mg/dL (8-26) Creatinine 4.4 mg/dL (0.7-1.3) Estimated GFR (Cockcroft-Gault) 15.8 Glucose Level 88 mg/dL (70-99) Calcium Level 9.2 mg/dL (8.5-10.1) Triglycerides Level 76 mg/dL (0-150) Cholesterol Level 109 mg/dL (0-200) LDL Cholesterol, Calculated 69 mg/dL (0-100) VLDL Cholesterol, Calculated 15 mg/dL (0-40) Non-HDL Cholesterol Calculated 84 mg/dL (0-129) HDL Cholesterol 25 mg/dL (40-60) Cholesterol/HDL Ratio 4.4 White Blood Count 9.8 x10^3/uL (4.0-11.0) Red Blood Count 3.76 x10^6/uL (4.30-5.70) Hemoglobin 10.9 g/dL (13.0-17.5) Hematocrit 33.3 % (39.0-53.0) Mean Corpuscular Volume 89 fL (79-100) Mean Corpuscular Hemoglobin 29 pg (25-35) Mean Corpuscular Hemoglobin Concent 33 g/dL (31-37) Red Cell Distribution Width 18.6 % (11.5-14.5) Platelet Count 412 x10^3/uL (140-400) Neutrophils (%) (Auto) 67 % (31-73) Lymphocytes (%) (Auto) 15 % (24-48) Monocytes (%) (Auto) 10 % (0-9) Eosinophils (%) (Auto) 7 % (0-3) Basophils (%) (Auto) 1 % (0-3) Neutrophils # (Auto) 6.6 x10^3/uL (1.8-7.7) Lymphocytes # (Auto) 1.5 x10^3/uL (1.0-4.8) Monocytes # (Auto) 1.0 x10^3/uL (0.0-1.1) Eosinophils # (Auto) 0.6 x10^3/uL (0.0-0.7) Basophils # (Auto) 0.1 x10^3/uL (0.0-0.2) Glucose (Fingerstick) 78 mg/dL (70-99) Urine Collection Type U cath Urine Color Brown Urine Clarity Turbid Urine pH Urine Specific [place] Urine Protein mg/dL (NEG-TRACE) Urine Glucose (UA) mg/dL (NEG) Urine Ketones (Stick) mg/dL (NEG) Urine Blood (NEG) Urine Nitrite (NEG) Urine Bilirubin (NEG) Urine Urobilinogen Dipstick mg/dL (0.2 mg/dL) Urine Leukocyte Esterase (NEG) Urine RBC /HPF (0-2) Urine WBC Tntc /HPF (0-4) Urine Bacteria Few /HPF (0-FEW) Laboratory Tests Test 06/23/19 17:36 06/23/19 17:42 Glucose (Fingerstick) 78 mg/dL (70-99) Urine Collection Type U cath Urine Color Brown Urine Clarity Turbid Urine pH Urine Specific [place] Urine Protein mg/dL (NEG-TRACE) Urine Glucose (UA) mg/dL (NEG) Urine Ketones (Stick) mg/dL (NEG) Urine Blood (NEG) Urine Nitrite (NEG) Urine Bilirubin (NEG) Urine Urobilinogen Dipstick mg/dL (0.2 mg/dL) Urine Leukocyte Esterase (NEG) Urine RBC /HPF (0-2) Urine WBC Tntc /HPF (0-4) Urine Bacteria Few /HPF (0-FEW) Microbiology 06/22/19 Blood Culture - Preliminary, Resulted NO GROWTH AFTER 1 DAY Medications Current Medications Vancomycin HCl 250 ml @ 250 mls/hr 1X ONCE IV ; Start 06/22/19 at 10:45; Stop 06/22/19 at 11:44; Status UNV Piperacillin Sod/ Tazobactam Sod 2.25 gm/Sodium Chloride 50 ml @ 100 mls/hr 1X ONCE IV Last administered on 06/22/19at 11:55; Start 06/22/19 at 10:45; Stop 06/22/19 at 11:14; Status DC Sodium Chloride 1,000 ml @ 100 mls/hr Q10H IV Last administered on 06/22/19at 11:55; Start 06/22/19 at 10:38; Stop 06/22/19 at 20:37; Status DC Vancomycin HCl 2 gm/Sodium Chloride 500 ml @ 250 mls/hr 1X ONCE IV Last administered on 06/22/19at 12:32; Start 06/22/19 at 11:30; Stop 06/22/19 at 13:29; Status DC Info (PHARMACY MONITORING -- do not chart) 1 each PRN DAILY PRN MC SEE COMMENTS; Start 06/22/19 at 16:30 Info (PHARMACY MONITORING -- do not chart) 1 each PRN DAILY PRN MC SEE COMMENTS; Start 06/22/19 at 16:30; Status UNV Sodium Chloride 1,000 ml @ 40 mls/hr Q24H IV Last administered on 06/23/19at 18:24; Start 06/22/19 at 17:30 Vancomycin HCl (Vanco Per Pharmacy) 1 each PRN DAILY PRN MC SEE COMMENTS Last administered on 06/23/19at 14:26; Start 06/22/19 at 17:30 Piperacillin Sod/ Tazobactam Sod (Zosyn Per Pharmacy) 1 each PRN DAILY PRN MC SEE COMMENTS; Start 06/22/19 at 17:30 Acetaminophen (Tylenol) 650 mg PRN Q6HRS PRN PO MILD PAIN / TEMP; Start 06/22/19 at 17:30 Ondansetron HCl (Zofran) 4 mg PRN Q6HRS PRN IV NAUSEA/VOMITING; Start 06/22/19 at 17:30 Clopidogrel Bisulfate (Plavix) 75 mg DAILYWBKFT PO ; Start 06/23/19 at 08:00 Vitamin B Complex/ Vitamin C (Rosalie-Judah) 1 tab DAILY PO ; Start 06/23/19 at 09:00 Allopurinol (Zyloprim) 100 mg DAILY PO ; Start 06/23/19 at 09:00 Atorvastatin Calcium (Lipitor) 40 mg QHS PO Last administered on 06/22/19at 21:37; Start 06/22/19 at 21:00 Pantoprazole Sodium (Protonix) 40 mg DAILYAC PO ; Start 06/23/19 at 07:30 Cyanocobalamin (Vitamin B-12) 1,000 mcg DAILY PO ; Start 06/23/19 at 09:00 Piperacillin Sod/ Tazobactam Sod 2.25 gm/Sodium Chloride 50 ml @ 100 mls/hr Q8HRS IV Last administered on 06/24/19at 05:32; Start 06/22/19 at 21:00 Heparin Sodium (Porcine) (Heparin Sodium) 5,000 unit BID SQ Last administered on 06/22/19at 21:37; Start 06/22/19 at 21:00; Stop 06/23/19 at 08:23; Status DC Insulin Human Lispro (HumaLOG) 0-6 UNITS BG 400-49... TIDWMEALS SQ ; Start 06/23/19 at 08:00 Vancomycin HCl (Vancomycin Random Level) 1 each 1X ONCE MC Last administered on 06/24/19at 06:37; Start 06/24/19 at 06:00; Stop 06/24/19 at 06:01; Status DC Heparin Sodium/ Dextrose 500 ml @ 19.3 mls/hr CONT PRN IV SEE I/O RECORD; Start 06/23/19 at 08:30; Stop 06/23/19 at 14:53; Status DC Heparin Sodium (Porcine) (Heparin Sodium) 2,000 unit PRN Q6HRS PRN IV FOR UFH LEVEL LESS THAN 0.2; Start 06/23/19 at 08:30; Stop 06/23/19 at 14:53; Status DC Aspirin (Ecotrin) 325 mg 1X ONCE PO ; Start 06/23/19 at 10:30; Stop 06/23/19 at 10:31; Status DC Aspirin (Ecotrin) 81 mg DAILYWBKFT PO ; Start 06/24/19 at 08:00 Ondansetron HCl (Zofran) 4 mg PRN Q6HRS PRN IV NAUSEA/VOMITING; Start 06/24/19 at 07:00; Stop 06/25/19 at 06:59 Morphine Sulfate (Morphine Sulfate) 1 mg PRN Q10MIN PRN IV SEVERE PAIN 7-10; Start 06/24/19 at 07:00; Stop 06/24/19 at 10:06; Status DC Ringer's Solution 1,000 ml @ 30 mls/hr Q24H IV ; Start 06/24/19 at 07:00; Stop 06/24/19 at 18:59 Lidocaine HCl (Xylocaine-Mpf 1% 2ml Vial) 2 ml PRN 1X PRN ID PRIOR TO IV START; Start 06/24/19 at 07:00; Stop 06/25/19 at 06:59 Hydromorphone HCl (Dilaudid) 0.5 mg PRN Q10MIN PRN IV SEV PAIN, Second choice; Start 06/24/19 at 07:00; Stop 06/24/19 at 10:06; Status DC Info (Anti-Coagulation Monitoring By Pharmacy) 1 each PRN DAILY PRN MC SEE COMMENTS Last administered on 06/23/19at 14:31; Start 06/23/19 at 14:30 Enoxaparin Sodium (Lovenox Per Pharmacy Treatment Dosing) 1 each 1X PRN MC SEE COMMENTS; Start 06/23/19 at 14:45; Stop 06/23/19 at 21:00; Status DC Enoxaparin Sodium (Lovenox 80mg Syringe) 80 mg 1X ONCE SQ Last administered on 06/23/19at 15:16; Start 06/23/19 at 15:30; Stop 06/23/19 at 15:31; Status DC Active Scripts Active [place] 5-325 Tablet (Acetaminophen/Hydrocodone Bitart) 1 Each Tablet 0.5 Tab PO Q4HRS Zyvox (Linezolid) 600 Mg Tablet 600 Mg PO BID 4 Days Amox Tr-K Clv 500-125 Mg Tab (Amoxicillin/Potassium Clav) 1 Each Tablet 1 Tab PO DAILY 4 Days Tramadol Hcl 50 Mg Tablet 50 Mg PO PRN Q6HRS PRN Ondansetron Odt (Ondansetron) 4 Mg Tab.rapdis 4 Mg PO Q6HRS PRN Humalog (Insulin Lispro) 100 Unit/1 Ml Insuln.pen 0 Units SQ TIDWMEALS 30 Days BG 150-199= 1 units 200-299= 2 units 300-399= 4 units 400-499= 6 units ac tid sliding scale Reported Omeprazole 20 Mg Tablet.dr 1 Tab PO DAILY Vitamin D3 (Cholecalciferol (Vitamin D3)) 1,000 Unit Tablet 1 Tab PO DAILY Vitamin B-12 (Cyanocobalamin (Vitamin B-12)) 1,000 Mcg Tablet 1 Tab PO DAILY Senna (Sennosides) 8.6 Mg Tablet 8.6 Mg PO PRN DAILY PRN 2 tabs Renvela (Sevelamer Carbonate) 800 Mg Tablet 800 Mg PO TIDWMEALS Renal Caps Softgel (Folic Acid/Vitamin B Comp W-C) 1 Mg Capsule 1 Mg PO DAILY Reglan (Metoclopramide Hcl) 10 Mg Tablet 5 Mg PO TID Probiotic (Lactobacillus Acidophilus) 1 Each Capsule 1 Each PO BID Milk Of Magnesia (Magnesium Hydroxide) 400 Mg/5 Ml Oral.susp 400 Mg PO PRN DAILY PRN Lipitor (Atorvastatin Calcium) 40 Mg Tablet 1 Tab PO QHS Humalog (Insulin Lispro) 100 Unit/1 Ml Insuln.pen 100 Unit SQ TIDBFRMEAL 150-199=1 unit 200-299=2 units 300-399=4 units 100-499=6 units Clopidogrel (Clopidogrel Bisulfate) 75 Mg Tablet 1 Tab PO DAILY Duoneb 0.5-3(2.5) Mg/3 Ml (Albuterol/Ipratropium) 3 Ml Ampul.neb 3 Ml NEB PRN Q4HRS PRN Lac-Hydrin Five (Ammonium Lactate) 226 Gm Lotion 226 Gm TP BID Allopurinol 100 Mg Tablet 1 Tab PO DAILY Tylenol (Acetaminophen) 325 Mg Tablet 1 Tab PO PRN Q4HRS Aspirin 81 Mg Tab.chew 81 Mg PO DAILY Vitals/I & O Vital Sign - Last 24 Hours 06/23/19 06/23/19 06/23/19 06/24/19 15:00 19:59 23:20 03:22 Temp 99.6 99.4 99.2 98.3 99.6 99.4 99.2 98.3 Pulse 69 70 74 74 Resp 18 18 18 18 B/P (MAP) 125/62 (83) 113/57 (75) 111/54 (73) 113/58 (76) Pulse Ox 100 96 96 98 O2 Delivery Room Air Room Air Room Air Room Air 06/24/19 06:57 Temp 98.4 98.4 Pulse 69 Resp 18 B/P (MAP) 128/75 (92) Pulse Ox 97 O2 Delivery Room Air Intake and Output 06/23/19 06/23/19 06/24/19 15:00 23:00 07:00 Intake Total 80 ml 50 ml 50 ml Balance 80 ml 50 ml 50 ml BAN TORRES MD Jun 24, 2019 10:46
[2019-06-24] MEDS: KETOROLAC 15 MG/ML VIAL. IV PRN (11:00)
[2019-06-24] MEDS ORDERED: IV NORMAL SALINE 1000ML BAG 1,000 ML IV PRN ×2 (11:27)
[2019-06-24] MEDS ORDERED: DIALYSIS PATIENT. MC PRN ×2 (11:30)
[2019-06-24] MEDS: HEPARIN for SUB-Q USE 5,000 UNIT/ML VIAL. SQ SCH ×2 (12:30→21:49)
--- NOTE | 2019-06-24 13:17 | PDOC ---
CARDIO Progress Notes Date and Time Date of Service 06/24/2019 Time of Evaluation 1250 Subjective Subjective: Other (nonverbal, but no CP or SOA reported by nodding) Vitals Vitals Vital Signs Date Time Temp Pulse Resp B/P (MAP) Pulse Ox O2 Delivery O2 Flow Rate FiO2 06/24/19 10:31 98.2 74 18 130/64 (86) 99 Room Air 98.2 Weight Weight [ ] Input and Output Intake and Output Intake and Output 06/24/19 07:00 Intake Total 180 ml Balance 180 ml Intake Oral 0 ml IV Total 100 ml Blood Product IV Normal Saline Flush 80 ml # Bowel Movements 2 Laboratory Labs Laboratory Tests Test 06/23/19 17:36 06/23/19 17:42 06/24/19 11:28 Glucose (Fingerstick) 78 mg/dL (70-99) 93 mg/dL (70-99) Urine Collection Type U cath Urine Color Brown Urine Clarity Turbid Urine pH Urine Specific [place] Urine Protein mg/dL (NEG-TRACE) Urine Glucose (UA) mg/dL (NEG) Urine Ketones (Stick) mg/dL (NEG) Urine Blood (NEG) Urine Nitrite (NEG) Urine Bilirubin (NEG) Urine Urobilinogen Dipstick mg/dL (0.2 mg/dL) Urine Leukocyte Esterase (NEG) Urine RBC /HPF (0-2) Urine WBC Tntc /HPF (0-4) Urine Bacteria Few /HPF (0-FEW) Microbiology Micro Microbiology 06/22/19 Blood Culture - Preliminary, Resulted NO GROWTH AFTER 2 DAYS Review of Systems Constitutional: yes: other (CONFUSED) Physical Exam HEENT: Neck Supple W Full Motion Chest: Symmetric LUNGS: Other (diminished bases) Heart: irregularly irregular (AFIB controlled) Abdomen: Soft N/T Extremities: Other (bilateral BKA) Neurology: alert, follow commands, non-verbal Assessment Assessment 1. UTI/cystitis: pus in urine. ID following, Cx pending 2. Metabolic Encephalopathy 3. NSTEMI: elevated trop, EKG with noted ST depression. EF 45-50% unchanged. 4. Chronic diastolic/systolic CHF: compensated 5. PAFIB; maintaining SR with small P wave morphology 6. Hypertension; controlled 7. CAD; s/p PCI/stent in the past. clinically stable. CP free. 8. Hx of PAD: with bilateral BKA: left debridement pending today. 9. H/o CVA with left side hemiparesis 10. ESRD on HD 11. SSS s/p PPM ([employer]) VVIR, occasional brief NSVT 16% V paced 12. DM2/HLP: BG and lipids on goal. 13. Hx of psoas hematoma r/t to past coumadin Recommendations ASA. Received lovenox yesterday since IV could not be restarted, Trop trending down. Continue with Heparin SubQ. Will Recheck EKG, so far no CP Fluid offloading/management via HD as per nephrology. Not a candidate for previous coumadin due to past bleed with psoas hematoma. Continue ASA for stroke prevention No recent workup. Multiple CV comorbidities. Ischemic workup to be considered once infectious process and able to swallow. Supportive care for now. MARIANN SCHAFER APRN Jun 24, 2019 13:17
[2019-06-24 13:22] LABS: BASO # 0.1 x10^3/uL (0.0-0.2); BASO % 1 % (0-3); EOS # 0.7 x10^3/uL (0.0-0.7); EOS % 8 % (0-3); LYMPH # 1.5 x10^3/uL (1.0-4.8); LYMPH % 18 % (24-48); MEAN CORPUSCULAR HEMOGLOBIN 29 pg (25-35); MEAN CORPUSCULAR HGB CONC 33 g/dL (31-37); MEAN CORPUSCULAR VOLUME 88 fL (79-100); MONO # 0.9 x10^3/uL (0.0-1.1); MONO % 10 % (0-9); NEUT # 5.5 x10^3/uL (1.8-7.7); NEUT % 63 % (31-73); PLATELET COUNT 392 x10^3/uL (140-400); RED BLOOD COUNT 3.42 x10^6/uL (4.30-5.70); RED CELL DISTRIBUTION WIDTH 18.4 % (11.5-14.5); WHITE BLOOD COUNT 8.8 x10^3/uL (4.0-11.0)
[2019-06-24 13:34] LABS: CALCIUM 9.2 mg/dL (8.5-10.1); CREATININE 6.7 mg/dL (0.7-1.3); GFR 9.7; POTASSIUM 4.6 mmol/L (3.5-5.1)
[2019-06-24 13:50] LABS: PROTHROMBIN TIME PATIENT 20.4 SEC (11.7-14.0)
[2019-06-24] MEDS: VANCOMYCIN PER PHARMACY MC PRN (14:46)
[2019-06-24] MEDS: ACETAMINOPHEN 650 MG SUPP.RECT. PR PRN ×2 (15:00→22:58)
--- NOTE | 2019-06-24 15:45 | PDOC ---
Provider Note Provider Note Vascular S: Patient drowsy, seen while on dialysis. O: Drowsy VSS, afebrile BLE in rooke boot protectors A/P:78-year-old male with peripheral arterial disease and history of bilateral below-knee amputation presents with altered mental status, urinary tract infection and left below-knee amputation incision site wound. Recommend continued antibiotics and local wound care. The patient would benefit from surgical debridement and wound VAC placement. Will schedule in the near future if medically stable to proceed. STANLEY DUMONT HYBRID CAR MECHANIC Jun 24, 2019 15:45
--- NOTE | 2019-06-24 16:20 | EKG ---
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
[2019-06-24] MEDS: VANCOMYCIN 500 MG in IV NORMAL SALINE 100ML 100 ML IV SCH (16:48)
[2019-06-24] MEDS: IV 1/2 NORMAL SALINE 1,000 ML IV SCH (17:30)
[2019-06-24 19:00] VITALS: BP 113/51
[2019-06-24] MEDS: ATORVASTATIN CALCIUM 40 MG TABLET. PO SCH (21:00)
[2019-06-24 23:00] VITALS: BP 124/67
[2019-06-25] MEDS ORDERED: IV DEXTROSE 5% 250 ML BAG. IV PRN (01:30)
[2019-06-25] MEDS ORDERED: DEXTROSE 50% 25 GM / 50ML DISP.SYRIN. IV PRN (01:30)
[2019-06-25 03:00] VITALS: BP 116/62
[2019-06-25] MEDS: PIPERACILLIN/TAZOBACTAM 2.25 GM in IV NORMAL SALINE 50ML 50 ML IV SCH ×3 (05:39→22:22)
[2019-06-25 07:00] VITALS: BP 126/58
[2019-06-25] MEDS: PANTOPRAZOLE 40 MG TABLET.DR. PO SCH (07:30)
--- NOTE | 2019-06-25 07:52 | PDOC ---
Infectious Disease Note Subjective: Subjective pt is alert awake, denies any complaints undergoing CBI urine now clear awaiting I and D ROS: ROS d/w nursing neg otherwise Vital Signs: Vital Signs Vital Signs Date Time Temp Pulse Resp B/P (MAP) Pulse Ox O2 Delivery O2 Flow Rate FiO2 06/25/19 03:00 98.3 69 20 116/62 (80) 100 Room Air 98.3 Physical Exam: PHYSICAL EXAM GENERAL: Lethargic, opens eyes when I called out his name, appears comfortable. No icterus. NECK: Supple. HEART: S1, S2. LUNGS: Clear bilaterally. ABDOMEN: Soft, nontender, obese. Bowel sounds present. yeast in groin EXTREMITIES: Right below knee amputation, scar healthy, left lower extremity amputation stump has a wound with a necrotic area. No bony exposure. No bogginess, excoriation bilateral groin. Right upper extremity AV fistula site looks okay. BACK: Has a superficial stage 1 sacral wound, I was not able to examine as the patient is being transferred to the second floor. No generalized rash, dry skin. 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 Medications: Inpatient Meds: Current Medications Medications (Trade) Dose Ordered Sig/Mitzi Start Time Stop Time Status Last Admin Dose Admin Acetaminophen (Tylenol Supp) 650 mg PRN Q6HRS PRN 06/24/19 10:30 06/24/19 23:03 650 MG Acetaminophen (Tylenol) 650 mg PRN Q6HRS PRN 06/22/19 17:30 Allopurinol (Zyloprim) 100 mg DAILY 06/23/19 09:00 Aspirin (Ecotrin) 81 mg DAILYWBKFT 06/24/19 08:00 Atorvastatin Calcium (Lipitor) 40 mg QHS 06/22/19 21:00 06/22/19 21:37 40 MG Clopidogrel Bisulfate (Plavix) 75 mg DAILYWBKFT 06/23/19 08:00 Cyanocobalamin (Vitamin B-12) 1,000 mcg DAILY 06/23/19 09:00 Dextrose 250 ml PRN Q15MIN PRN 06/25/19 01:30 Dextrose (Dextrose 50%-Water Syringe) 12.5 gm PRN Q15MIN PRN 06/25/19 01:30 06/25/19 01:41 12.5 GM Enoxaparin Sodium (Lovenox 80mg Syringe) 80 mg 1X ONCE 06/23/19 15:30 06/23/19 15:31 DC 06/23/19 15:16 80 MG Enoxaparin Sodium (Lovenox Per Pharmacy Treatment Dosing) 1 each 1X PRN 06/23/19 14:45 06/23/19 21:00 DC Heparin Sodium (Porcine) (Heparin Sodium) 5,000 unit Q12HR 06/24/19 11:00 06/24/19 21:49 5,000 UNIT Heparin Sodium/ Dextrose 500 ml @ 19.3 mls/hr CONT PRN 06/23/19 08:30 06/23/19 14:53 DC Hydromorphone HCl (Dilaudid) 0.5 mg PRN Q10MIN PRN 06/24/19 07:00 06/24/19 10:06 DC Info (Anti-Coagulation Monitoring By Pharmacy) 1 each PRN DAILY PRN 06/23/19 14:30 06/23/19 14:31 1 EACH Info (PHARMACY MONITORING -- do not chart) 1 each PRN DAILY PRN 06/24/19 11:30 UNV Insulin Human Lispro (HumaLOG) 0-6 UNITS BG 400-49... TIDWMEALS 06/23/19 08:00 Ketorolac Tromethamine (Toradol 15mg Vial) 15 mg PRN Q6HRS PRN 06/24/19 10:30 06/29/19 10:29 06/24/19 11:00 15 MG Lidocaine HCl (Xylocaine-Mpf 1% 2ml Vial) 2 ml PRN 1X PRN 06/24/19 07:00 06/25/19 06:59 DC Morphine Sulfate (Morphine Sulfate) 1 mg PRN Q10MIN PRN 06/24/19 07:00 06/24/19 10:06 DC Ondansetron HCl (Zofran) 4 mg PRN Q6HRS PRN 06/24/19 07:00 06/25/19 06:59 DC Pantoprazole Sodium (Protonix) 40 mg DAILYAC 06/23/19 07:30 Piperacillin Sod/ Tazobactam Sod (Zosyn Per Pharmacy) 1 each PRN DAILY PRN 06/22/19 17:30 Piperacillin Sod/ Tazobactam Sod 2.25 gm/Sodium Chloride 50 ml @ 100 mls/hr Q8HRS 06/22/19 21:00 06/25/19 05:39 100 MLS/HR Ringer's Solution 1,000 ml @ 30 mls/hr Q24H 06/24/19 07:00 06/24/19 18:59 DC Sodium Chloride 1,000 ml @ 400 mls/hr Q2H30M PRN 06/24/19 11:27 06/24/19 23:26 DC Tramadol HCl (Ultram) 25 mg PRN Q6HRS PRN 06/24/19 10:30 Vancomycin HCl (Vanco Per Pharmacy) 1 each PRN DAILY PRN 06/22/19 17:30 06/24/19 14:46 1 EACH Vancomycin HCl (Vancomycin Random Level) 1 each 1X ONCE 06/24/19 06:00 06/24/19 06:01 DC 06/24/19 06:37 1 EACH Vancomycin HCl 500 mg/Sodium Chloride 100 ml @ 100 mls/hr QMWF 06/24/19 16:00 06/24/19 16:48 100 MLS/HR Vancomycin HCl 2 gm/Sodium Chloride 500 ml @ 250 mls/hr 1X ONCE 06/22/19 11:30 06/22/19 13:29 DC 06/22/19 12:32 250 MLS/HR Vitamin B Complex/ Vitamin C (Rosalie-Judah) 1 tab DAILY 06/23/19 09:00 Labs: Lab Laboratory Tests Test 06/24/19 11:28 06/24/19 13:00 06/24/19 23:56 06/25/19 03:06 Glucose (Fingerstick) 93 mg/dL (70-99) 67 mg/dL (70-99) 105 mg/dL (70-99) White Blood Count 8.8 x10^3/uL (4.0-11.0) Red Blood Count 3.42 x10^6/uL (4.30-5.70) Hemoglobin 10.0 g/dL (13.0-17.5) Hematocrit 30.0 % (39.0-53.0) Mean Corpuscular Volume 88 fL (79-100) Mean Corpuscular Hemoglobin 29 pg (25-35) Mean Corpuscular Hemoglobin Concent 33 g/dL (31-37) Red Cell Distribution Width 18.4 % (11.5-14.5) Platelet Count 392 x10^3/uL (140-400) Neutrophils (%) (Auto) 63 % (31-73) Lymphocytes (%) (Auto) 18 % (24-48) Monocytes (%) (Auto) 10 % (0-9) Eosinophils (%) (Auto) 8 % (0-3) Basophils (%) (Auto) 1 % (0-3) Neutrophils # (Auto) 5.5 x10^3/uL (1.8-7.7) Lymphocytes # (Auto) 1.5 x10^3/uL (1.0-4.8) Monocytes # (Auto) 0.9 x10^3/uL (0.0-1.1) Eosinophils # (Auto) 0.7 x10^3/uL (0.0-0.7) Basophils # (Auto) 0.1 x10^3/uL (0.0-0.2) Prothrombin Time 20.4 SEC (11.7-14.0) Prothromb Time International Ratio 1.8 (0.8-1.1) Sodium Level 144 mmol/L (136-145) Potassium Level 4.6 mmol/L (3.5-5.1) Chloride Level 99 mmol/L (98-107) Carbon Dioxide Level 29 mmol/L (21-32) Anion Gap 16 (6-14) Blood Urea Nitrogen 56 mg/dL (8-26) Creatinine 6.7 mg/dL (0.7-1.3) Estimated GFR (Cockcroft-Gault) 9.7 Glucose Level 86 mg/dL (70-99) Calcium Level 9.2 mg/dL (8.5-10.1) Random Vancomycin Level 16.0 mcg/mL Test 06/25/19 07:42 Glucose (Fingerstick) 80 mg/dL (70-99) Objective: Assessment: 1. Urinary tract infection. No leukocyte esterase or nitrite done. Not done again on repeat UA 06/24. urine had pus like appearance when allan placement was attempted, no allan in place yeast on uc likely colonization 2. Altered mental status, likely multifactorial, improving. CT head negative. 3. 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 End-stage renal disease, on hemodialysis. 5. Low-grade fevers. 6. long-term resident. 7. Anemia of chronic disease. 8. Severe protein-calorie malnutrition. 9. Chronic atrial fibrillation. 10. High troponin with working diagnosis of non-STEMI. 11. Chronic sacral wound, superficial. 12. Yeast in groin Plan: Plan of Care - Continue IV vancomycin and Zosyn, renal dosing for now -micafungin - f/u c/s and labs - Follow up labs. -Vascular Surgery planning for I and D when stable - Continue local wound care. - Continue supportive care. Discussed with RN. MELISSA MOLINA MD Jun 25, 2019 07:52
[2019-06-25] MEDS: INSULIN LISPRO 300 UNITS/3 ML VIAL. SQ SCH ×3 (07:55→17:00)
--- NOTE | 2019-06-25 08:56 | PDOC ---
SUBJECTIVE Subjective Pt somewhat confused. Denies pain OBJECTIVE Objective D/w RN: CBI started last night - light red. Clear this morning Physical Exam: Confused, pleasant, NAD Breathing unlabored Abdomen soft, nontender, nondistended CBI running, catheter in place draining clear fluid Vital Signs Vital Signs Date Time Temp Pulse Resp B/P (MAP) Pulse Ox O2 Delivery O2 Flow Rate FiO2 06/25/19 07:00 98.2 63 16 126/58 (80) 84 Room Air 98.2 06/25/19 03:00 98.3 69 20 116/62 (80) 100 Room Air 98.3 06/24/19 23:00 98.4 58 20 124/67 (86) 98 Room Air 98.4 06/24/19 19:00 98.5 66 26 113/51 (71) 97 Room Air 98.5 06/24/19 10:31 98.2 74 18 130/64 (86) 99 Room Air 98.2 I & O Intake and Output 06/25/19 07:00 Intake Total 0 ml Output Total 6000 ml Balance -6000 ml Intake Oral 0 ml Output Urine Total 6000 ml # Bowel Movements 3 ASSESSMENT/PLAN Assessment/Plan Pyocystitis, funguria Trial d/c CBI this morning: minimal output d/t dialysis, urine in tubing dark red with some medium clots when flushed. Continue CBI medium flow, will reassess tomorrow. On Micafungin per ID voiding trial at discharge COMMENT Lab Laboratory Tests Test 06/24/19 11:28 06/24/19 13:00 06/24/19 23:56 06/25/19 03:06 Glucose (Fingerstick) 93 mg/dL (70-99) 67 mg/dL (70-99) 105 mg/dL (70-99) White Blood Count 8.8 x10^3/uL (4.0-11.0) Red Blood Count 3.42 x10^6/uL (4.30-5.70) Hemoglobin 10.0 g/dL (13.0-17.5) Hematocrit 30.0 % (39.0-53.0) Mean Corpuscular Volume 88 fL (79-100) Mean Corpuscular Hemoglobin 29 pg (25-35) Mean Corpuscular Hemoglobin Concent 33 g/dL (31-37) Red Cell Distribution Width 18.4 % (11.5-14.5) Platelet Count 392 x10^3/uL (140-400) Neutrophils (%) (Auto) 63 % (31-73) Lymphocytes (%) (Auto) 18 % (24-48) Monocytes (%) (Auto) 10 % (0-9) Eosinophils (%) (Auto) 8 % (0-3) Basophils (%) (Auto) 1 % (0-3) Neutrophils # (Auto) 5.5 x10^3/uL (1.8-7.7) Lymphocytes # (Auto) 1.5 x10^3/uL (1.0-4.8) Monocytes # (Auto) 0.9 x10^3/uL (0.0-1.1) Eosinophils # (Auto) 0.7 x10^3/uL (0.0-0.7) Basophils # (Auto) 0.1 x10^3/uL (0.0-0.2) Prothrombin Time 20.4 SEC (11.7-14.0) Prothromb Time International Ratio 1.8 (0.8-1.1) Sodium Level 144 mmol/L (136-145) Potassium Level 4.6 mmol/L (3.5-5.1) Chloride Level 99 mmol/L (98-107) Carbon Dioxide Level 29 mmol/L (21-32) Anion Gap 16 (6-14) Blood Urea Nitrogen 56 mg/dL (8-26) Creatinine 6.7 mg/dL (0.7-1.3) Estimated GFR (Cockcroft-Gault) 9.7 Glucose Level 86 mg/dL (70-99) Calcium Level 9.2 mg/dL (8.5-10.1) Random Vancomycin Level 16.0 mcg/mL Test 06/25/19 07:42 Glucose (Fingerstick) 80 mg/dL (70-99) OC SPARROW Jun 25, 2019 08:55
[2019-06-25] MEDS: MICAFUNGIN 100 MG in IV DEXTROSE 5% 100ML 100 ML IV SCH (09:24)
[2019-06-25] MEDS: HEPARIN for SUB-Q USE 5,000 UNIT/ML VIAL. SQ SCH ×2 (09:30→22:23)
[2019-06-25 11:00] VITALS: BP 121/68
--- NOTE | 2019-06-25 11:01 | PDOC ---
PROGRESS NOTES Subjective Subjective spoke with patient and dr. palacios and speech therapist. he failed his swallow evaluation and patient concurs with dobhoff placement for tube feeding. he is more alert and talking Objective Objective Vital Signs Date Time Temp Pulse Resp B/P (MAP) Pulse Ox O2 Delivery O2 Flow Rate FiO2 06/25/19 07:00 98.2 63 16 126/58 (80) 84 Room Air 98.2 Intake and Output 06/25/19 07:00 Intake Total 0 ml Output Total 6000 ml Balance -6000 ml Intake Oral 0 ml Output Urine Total 6000 ml # Bowel Movements 3 Physical Exam Abdomen: Soft Heart: Normal S1, Normal S2 Extremities: Other (bilateral BKA) General: Alert, Cooperative, No acute distress HEENT: Atraumatic Lungs: Clear to auscultation Neuro: Normal speech Psych/Mental Status: Mood NL Skin: No rashes Assessment Assessment Problems metabolic encephalopathy. 2. Pyuria, consistent with urinary tract infection. pus in urine 3. Bilateral below-knee amputation. 4. left below-knee amputation stump wound 5. Diabetes mellitus type 2. 6. Peripheral arterial disease. 7. End-stage renal disease, on hemodialysis. m-w-f 8. paroxysmal atrial fibrillation. in nsr. not a coumadin candidate. recent hx of retroperitoneal bleed on anticoagulants and fall risk. 9. Severe protein-calorie malnutrition. 10. Anemia of chronic disease. NSTEMMI oropharyngeal dysphagia Medical Problems: (1) Altered mental status Status: Acute (2) Anemia in chronic illness Status: Chronic (3) CAD (coronary artery disease) Status: Chronic (4) Chronic a-fib Status: Chronic (5) DM2 (diabetes mellitus, type 2) Status: Chronic (6) ESRD (end stage renal disease) Status: Acute (7) HTN (hypertension) Status: Chronic (8) Metabolic encephalopathy Status: Acute (9) NSTEMI (non-ST elevated myocardial infarction) Status: Acute (10) Paroxysmal A-fib Status: Acute (11) Peripheral artery disease Status: Chronic (12) Severe protein-calorie malnutrition Status: Chronic (13) SSS (sick sinus syndrome) Status: Chronic (14) UTI (urinary tract infection) Status: Acute Plan Plan of Care place dobhoff and start nepro hemodialysis tomorrow wound care eventual debridement and wound vac per vascular surgery when medically stable await blood and urine cultures continue iv zosyn and vancomycin and micafungin Comment Review of Relevant I have reviewed the following items soumya (where applicable) has been applied. Labs Laboratory Tests Test 06/23/19 17:36 06/23/19 17:42 06/24/19 11:28 06/24/19 13:00 Glucose (Fingerstick) 78 mg/dL (70-99) 93 mg/dL (70-99) Urine Collection Type U cath Urine Color Brown Urine Clarity Turbid Urine pH Urine Specific Chambers Urine Protein mg/dL (NEG-TRACE) Urine Glucose (UA) mg/dL (NEG) Urine Ketones (Stick) mg/dL (NEG) Urine Blood (NEG) Urine Nitrite (NEG) Urine Bilirubin (NEG) Urine Urobilinogen Dipstick mg/dL (0.2 mg/dL) Urine Leukocyte Esterase (NEG) Urine RBC /HPF (0-2) Urine WBC Tntc /HPF (0-4) Urine Bacteria Few /HPF (0-FEW) White Blood Count 8.8 x10^3/uL (4.0-11.0) Red Blood Count 3.42 x10^6/uL (4.30-5.70) Hemoglobin 10.0 g/dL (13.0-17.5) Hematocrit 30.0 % (39.0-53.0) Mean Corpuscular Volume 88 fL (79-100) Mean Corpuscular Hemoglobin 29 pg (25-35) Mean Corpuscular Hemoglobin Concent 33 g/dL (31-37) Red Cell Distribution Width 18.4 % (11.5-14.5) Platelet Count 392 x10^3/uL (140-400) Neutrophils (%) (Auto) 63 % (31-73) Lymphocytes (%) (Auto) 18 % (24-48) Monocytes (%) (Auto) 10 % (0-9) Eosinophils (%) (Auto) 8 % (0-3) Basophils (%) (Auto) 1 % (0-3) Neutrophils # (Auto) 5.5 x10^3/uL (1.8-7.7) Lymphocytes # (Auto) 1.5 x10^3/uL (1.0-4.8) Monocytes # (Auto) 0.9 x10^3/uL (0.0-1.1) Eosinophils # (Auto) 0.7 x10^3/uL (0.0-0.7) Basophils # (Auto) 0.1 x10^3/uL (0.0-0.2) Prothrombin Time 20.4 SEC (11.7-14.0) Prothromb Time International Ratio 1.8 (0.8-1.1) Sodium Level 144 mmol/L (136-145) Potassium Level 4.6 mmol/L (3.5-5.1) Chloride Level 99 mmol/L (98-107) Carbon Dioxide Level 29 mmol/L (21-32) Anion Gap 16 (6-14) Blood Urea Nitrogen 56 mg/dL (8-26) Creatinine 6.7 mg/dL (0.7-1.3) Estimated GFR (Cockcroft-Gault) 9.7 Glucose Level 86 mg/dL (70-99) Calcium Level 9.2 mg/dL (8.5-10.1) Random Vancomycin Level 16.0 mcg/mL Test 06/24/19 23:56 06/25/19 03:06 06/25/19 07:42 06/25/19 09:46 Glucose (Fingerstick) 67 mg/dL (70-99) 105 mg/dL (70-99) 80 mg/dL (70-99) 78 mg/dL (70-99) Laboratory Tests Test 06/24/19 11:28 06/24/19 13:00 06/24/19 23:56 06/25/19 03:06 Glucose (Fingerstick) 93 mg/dL (70-99) 67 mg/dL (70-99) 105 mg/dL (70-99) White Blood Count 8.8 x10^3/uL (4.0-11.0) Red Blood Count 3.42 x10^6/uL (4.30-5.70) Hemoglobin 10.0 g/dL (13.0-17.5) Hematocrit 30.0 % (39.0-53.0) Mean Corpuscular Volume 88 fL (79-100) Mean Corpuscular Hemoglobin 29 pg (25-35) Mean Corpuscular Hemoglobin Concent 33 g/dL (31-37) Red Cell Distribution Width 18.4 % (11.5-14.5) Platelet Count 392 x10^3/uL (140-400) Neutrophils (%) (Auto) 63 % (31-73) Lymphocytes (%) (Auto) 18 % (24-48) Monocytes (%) (Auto) 10 % (0-9) Eosinophils (%) (Auto) 8 % (0-3) Basophils (%) (Auto) 1 % (0-3) Neutrophils # (Auto) 5.5 x10^3/uL (1.8-7.7) Lymphocytes # (Auto) 1.5 x10^3/uL (1.0-4.8) Monocytes # (Auto) 0.9 x10^3/uL (0.0-1.1) Eosinophils # (Auto) 0.7 x10^3/uL (0.0-0.7) Basophils # (Auto) 0.1 x10^3/uL (0.0-0.2) Prothrombin Time 20.4 SEC (11.7-14.0) Prothromb Time International Ratio 1.8 (0.8-1.1) Sodium Level 144 mmol/L (136-145) Potassium Level 4.6 mmol/L (3.5-5.1) Chloride Level 99 mmol/L (98-107) Carbon Dioxide Level 29 mmol/L (21-32) Anion Gap 16 (6-14) Blood Urea Nitrogen 56 mg/dL (8-26) Creatinine 6.7 mg/dL (0.7-1.3) Estimated GFR (Cockcroft-Gault) 9.7 Glucose Level 86 mg/dL (70-99) Calcium Level 9.2 mg/dL (8.5-10.1) Random Vancomycin Level 16.0 mcg/mL Test 06/25/19 07:42 06/25/19 09:46 Glucose (Fingerstick) 80 mg/dL (70-99) 78 mg/dL (70-99) Microbiology 06/22/19 Urine Culture - Final, Complete 06/22/19 Urine Culture Result 1 (TEREZA) - Final, Complete 06/22/19 Blood Culture - Preliminary, Resulted NO GROWTH AFTER 2 DAYS Medications Current Medications Vancomycin HCl 250 ml @ 250 mls/hr 1X ONCE IV ; Start 06/22/19 at 10:45; Stop 06/22/19 at 11:44; Status UNV Piperacillin Sod/ Tazobactam Sod 2.25 gm/Sodium Chloride 50 ml @ 100 mls/hr 1X ONCE IV Last administered on 06/22/19at 11:55; Start 06/22/19 at 10:45; Stop 06/22/19 at 11:14; Status DC Sodium Chloride 1,000 ml @ 100 mls/hr Q10H IV Last administered on 06/22/19at 11:55; Start 06/22/19 at 10:38; Stop 06/22/19 at 20:37; Status DC Vancomycin HCl 2 gm/Sodium Chloride 500 ml @ 250 mls/hr 1X ONCE IV Last administered on 06/22/19at 12:32; Start 06/22/19 at 11:30; Stop 06/22/19 at 13:29; Status DC Info (PHARMACY MONITORING -- do not chart) 1 each PRN DAILY PRN MC SEE COMMENTS; Start 06/22/19 at 16:30; Stop 06/24/19 at 11:38; Status DC Info (PHARMACY MONITORING -- do not chart) 1 each PRN DAILY PRN MC SEE COMMENTS; Start 06/22/19 at 16:30; Status UNV Sodium Chloride 1,000 ml @ 40 mls/hr Q24H IV Last administered on 06/24/19at 18:31; Start 06/22/19 at 17:30 Vancomycin HCl (Vanco Per Pharmacy) 1 each PRN DAILY PRN MC SEE COMMENTS Last administered on 06/24/19at 14:46; Start 06/22/19 at 17:30 Piperacillin Sod/ Tazobactam Sod (Zosyn Per Pharmacy) 1 each PRN DAILY PRN MC SEE COMMENTS; Start 06/22/19 at 17:30 Acetaminophen (Tylenol) 650 mg PRN Q6HRS PRN PO MILD PAIN / TEMP; Start 06/22/19 at 17:30 Ondansetron HCl (Zofran) 4 mg PRN Q6HRS PRN IV NAUSEA/VOMITING; Start 06/22/19 at 17:30 Clopidogrel Bisulfate (Plavix) 75 mg DAILYWBKFT PO ; Start 06/23/19 at 08:00 Vitamin B Complex/ Vitamin C (Rosalie-Judah) 1 tab DAILY PO ; Start 06/23/19 at 09:00 Allopurinol (Zyloprim) 100 mg DAILY PO ; Start 06/23/19 at 09:00 Atorvastatin Calcium (Lipitor) 40 mg QHS PO Last administered on 06/22/19at 21:37; Start 06/22/19 at 21:00 Pantoprazole Sodium (Protonix) 40 mg DAILYAC PO ; Start 06/23/19 at 07:30 Cyanocobalamin (Vitamin B-12) 1,000 mcg DAILY PO ; Start 06/23/19 at 09:00 Piperacillin Sod/ Tazobactam Sod 2.25 gm/Sodium Chloride 50 ml @ 100 mls/hr Q8HRS IV Last administered on 06/25/19at 05:39; Start 06/22/19 at 21:00 Heparin Sodium (Porcine) (Heparin Sodium) 5,000 unit BID SQ Last administered on 06/22/19at 21:37; Start 06/22/19 at 21:00; Stop 06/23/19 at 08:23; Status DC Insulin Human Lispro (HumaLOG) 0-6 UNITS BG 400-49... TIDWMEALS SQ ; Start 06/23/19 at 08:00 Vancomycin HCl (Vancomycin Random Level) 1 each 1X ONCE MC Last administered on 06/24/19at 06:37; Start 06/24/19 at 06:00; Stop 06/24/19 at 06:01; Status DC Heparin Sodium/ Dextrose 500 ml @ 19.3 mls/hr CONT PRN IV SEE I/O RECORD; Start 06/23/19 at 08:30; Stop 06/23/19 at 14:53; Status DC Heparin Sodium (Porcine) (Heparin Sodium) 2,000 unit PRN Q6HRS PRN IV FOR UFH LEVEL LESS THAN 0.2; Start 06/23/19 at 08:30; Stop 06/23/19 at 14:53; Status DC Aspirin (Ecotrin) 325 mg 1X ONCE PO ; Start 06/23/19 at 10:30; Stop 06/23/19 at 10:31; Status DC Aspirin (Ecotrin) 81 mg DAILYWBKFT PO ; Start 06/24/19 at 08:00 Ondansetron HCl (Zofran) 4 mg PRN Q6HRS PRN IV NAUSEA/VOMITING; Start 06/24/19 at 07:00; Stop 06/25/19 at 06:59; Status DC Morphine Sulfate (Morphine Sulfate) 1 mg PRN Q10MIN PRN IV SEVERE PAIN 7-10; Start 06/24/19 at 07:00; Stop 06/24/19 at 10:06; Status DC Ringer's Solution 1,000 ml @ 30 mls/hr Q24H IV ; Start 06/24/19 at 07:00; Stop 06/24/19 at 18:59; Status DC Lidocaine HCl (Xylocaine-Mpf 1% 2ml Vial) 2 ml PRN 1X PRN ID PRIOR TO IV START; Start 06/24/19 at 07:00; Stop 06/25/19 at 06:59; Status DC Hydromorphone HCl (Dilaudid) 0.5 mg PRN Q10MIN PRN IV SEV PAIN, Second choice; Start 06/24/19 at 07:00; Stop 06/24/19 at 10:06; Status DC Info (Anti-Coagulation Monitoring By Pharmacy) 1 each PRN DAILY PRN MC SEE COMMENTS Last administered on 06/23/19at 14:31; Start 06/23/19 at 14:30 Enoxaparin Sodium (Lovenox Per Pharmacy Treatment Dosing) 1 each 1X PRN MC SEE COMMENTS; Start 06/23/19 at 14:45; Stop 06/23/19 at 21:00; Status DC Enoxaparin Sodium (Lovenox 80mg Syringe) 80 mg 1X ONCE SQ Last administered on 06/23/19at 15:16; Start 06/23/19 at 15:30; Stop 06/23/19 at 15:31; Status DC Heparin Sodium (Porcine) (Heparin Sodium) 5,000 unit Q12HR SQ Last administered on 06/25/19at 09:30; Start 06/24/19 at 11:00 Acetaminophen (Tylenol Supp) 650 mg PRN Q6HRS PRN TX MILD PAIN / TEMP Last administered on 06/24/19at 23:03; Start 06/24/19 at 10:30 Tramadol HCl (Ultram) 25 mg PRN Q6HRS PRN PO PAIN MODERATE PAIN; Start 06/24/19 at 10:30 Ketorolac Tromethamine (Toradol 15mg Vial) 15 mg PRN Q6HRS PRN IV PAIN Last administered on 06/24/19at 11:00; Start 06/24/19 at 10:30; Stop 06/29/19 at 10:29 Sodium Chloride 1,000 ml @ 1,000 mls/hr Q1H PRN IV hypotension; Start 06/24/19 at 11:27; Stop 06/24/19 at 17:26; Status DC Sodium Chloride 1,000 ml @ 400 mls/hr Q2H30M PRN IV PATENCY; Start 06/24/19 at 11:27; Stop 06/24/19 at 23:26; Status DC Info (PHARMACY MONITORING -- do not chart) 1 each PRN DAILY PRN MC SEE COMMENTS; Start 06/24/19 at 11:30 Info (PHARMACY MONITORING -- do not chart) 1 each PRN DAILY PRN MC SEE COMMENTS; Start 06/24/19 at 11:30; Status UNV Vancomycin HCl 500 mg/Sodium Chloride 100 ml @ 100 mls/hr QMWF IV Last administered on 06/24/19at 16:48; Start 06/24/19 at 16:00 Dextrose (Dextrose 50%-Water Syringe) 12.5 gm PRN Q15MIN PRN IV SEE COMMENTS Last administered on 06/25/19at 01:41; Start 06/25/19 at 01:30 Dextrose 250 ml PRN Q15MIN PRN IV SEE COMMENTS; Start 06/25/19 at 01:30 Micafungin Sodium 100 mg/Dextrose 100 ml @ 100 mls/hr Q24H IV Last administered on 06/25/19at 09:30; Start 06/25/19 at 09:00 Active Scripts Active Independence 5-325 Tablet (Acetaminophen/Hydrocodone Bitart) 1 Each Tablet 0.5 Tab PO Q4HRS Zyvox (Linezolid) 600 Mg Tablet 600 Mg PO BID 4 Days Amox Tr-K Clv 500-125 Mg Tab (Amoxicillin/Potassium Clav) 1 Each Tablet 1 Tab PO DAILY 4 Days Tramadol Hcl 50 Mg Tablet 50 Mg PO PRN Q6HRS PRN Ondansetron Odt (Ondansetron) 4 Mg Tab.rapdis 4 Mg PO Q6HRS PRN Humalog (Insulin Lispro) 100 Unit/1 Ml Insuln.pen 0 Units SQ TIDWMEALS 30 Days BG 150-199= 1 units 200-299= 2 units 300-399= 4 units 400-499= 6 units ac tid sliding scale Reported Omeprazole 20 Mg Tablet.dr 1 Tab PO DAILY Vitamin D3 (Cholecalciferol (Vitamin D3)) 1,000 Unit Tablet 1 Tab PO DAILY Vitamin B-12 (Cyanocobalamin (Vitamin B-12)) 1,000 Mcg Tablet 1 Tab PO DAILY Senna (Sennosides) 8.6 Mg Tablet 8.6 Mg PO PRN DAILY PRN 2 tabs Renvela (Sevelamer Carbonate) 800 Mg Tablet 800 Mg PO TIDWMEALS Renal Caps Softgel (Folic Acid/Vitamin B Comp W-C) 1 Mg Capsule 1 Mg PO DAILY Reglan (Metoclopramide Hcl) 10 Mg Tablet 5 Mg PO TID Probiotic (Lactobacillus Acidophilus) 1 Each Capsule 1 Each PO BID Milk Of Magnesia (Magnesium Hydroxide) 400 Mg/5 Ml Oral.susp 400 Mg PO PRN DAILY PRN Lipitor (Atorvastatin Calcium) 40 Mg Tablet 1 Tab PO QHS Humalog (Insulin Lispro) 100 Unit/1 Ml Insuln.pen 100 Unit SQ TIDBFRMEAL 150-199=1 unit 200-299=2 units 300-399=4 units 100-499=6 units Clopidogrel (Clopidogrel Bisulfate) 75 Mg Tablet 1 Tab PO DAILY Duoneb 0.5-3(2.5) Mg/3 Ml (Albuterol/Ipratropium) 3 Ml Ampul.neb 3 Ml NEB PRN Q4HRS PRN Lac-Hydrin Five (Ammonium Lactate) 226 Gm Lotion 226 Gm TP BID Allopurinol 100 Mg Tablet 1 Tab PO DAILY Tylenol (Acetaminophen) 325 Mg Tablet 1 Tab PO PRN Q4HRS Aspirin 81 Mg Tab.chew 81 Mg PO DAILY Vitals/I & O Vital Sign - Last 24 Hours 06/24/19 06/24/19 06/25/19 06/25/19 19:00 23:00 03:00 07:00 Temp 98.5 98.4 98.3 98.2 98.5 98.4 98.3 98.2 Pulse 66 58 69 63 Resp 26 20 20 16 B/P (MAP) 113/51 (71) 124/67 (86) 116/62 (80) 126/58 (80) Pulse Ox 97 98 100 84 O2 Delivery Room Air Room Air Room Air Room Air Intake and Output 06/24/19 06/24/19 06/25/19 15:00 23:00 07:00 Intake Total 0 ml Output Total 2450 ml 3550 ml Balance -2450 ml -3550 ml SAM OLMOS MD Jun 25, 2019 11:01
--- NOTE | 2019-06-25 11:06 | PDOC ---
Renal-Progress Notes Subjective Notes Notes MUCH MORE ALERT History of Present Illness Hx of present illness STABLE Vitals Vitals Vital Signs Date Time Temp Pulse Resp B/P (MAP) Pulse Ox O2 Delivery O2 Flow Rate FiO2 06/25/19 07:00 98.2 63 16 126/58 (80) 84 Room Air 98.2 Weight Weight [ ] I.O. Intake and Output Intake and Output 06/25/19 07:00 Intake Total 0 ml Output Total 6000 ml Balance -6000 ml Intake Oral 0 ml Output Urine Total 6000 ml # Bowel Movements 3 Labs Labs Laboratory Tests Test 06/24/19 11:28 06/24/19 13:00 06/24/19 23:56 06/25/19 03:06 Glucose (Fingerstick) 93 mg/dL (70-99) 67 mg/dL (70-99) 105 mg/dL (70-99) White Blood Count 8.8 x10^3/uL (4.0-11.0) Red Blood Count 3.42 x10^6/uL (4.30-5.70) Hemoglobin 10.0 g/dL (13.0-17.5) Hematocrit 30.0 % (39.0-53.0) Mean Corpuscular Volume 88 fL (79-100) Mean Corpuscular Hemoglobin 29 pg (25-35) Mean Corpuscular Hemoglobin Concent 33 g/dL (31-37) Red Cell Distribution Width 18.4 % (11.5-14.5) Platelet Count 392 x10^3/uL (140-400) Neutrophils (%) (Auto) 63 % (31-73) Lymphocytes (%) (Auto) 18 % (24-48) Monocytes (%) (Auto) 10 % (0-9) Eosinophils (%) (Auto) 8 % (0-3) Basophils (%) (Auto) 1 % (0-3) Neutrophils # (Auto) 5.5 x10^3/uL (1.8-7.7) Lymphocytes # (Auto) 1.5 x10^3/uL (1.0-4.8) Monocytes # (Auto) 0.9 x10^3/uL (0.0-1.1) Eosinophils # (Auto) 0.7 x10^3/uL (0.0-0.7) Basophils # (Auto) 0.1 x10^3/uL (0.0-0.2) Prothrombin Time 20.4 SEC (11.7-14.0) Prothromb Time International Ratio 1.8 (0.8-1.1) Sodium Level 144 mmol/L (136-145) Potassium Level 4.6 mmol/L (3.5-5.1) Chloride Level 99 mmol/L (98-107) Carbon Dioxide Level 29 mmol/L (21-32) Anion Gap 16 (6-14) Blood Urea Nitrogen 56 mg/dL (8-26) Creatinine 6.7 mg/dL (0.7-1.3) Estimated GFR (Cockcroft-Gault) 9.7 Glucose Level 86 mg/dL (70-99) Calcium Level 9.2 mg/dL (8.5-10.1) Random Vancomycin Level 16.0 mcg/mL Test 06/25/19 07:42 06/25/19 09:46 Glucose (Fingerstick) 80 mg/dL (70-99) 78 mg/dL (70-99) Micro Micro Microbiology 06/22/19 Urine Culture - Final, Complete 06/22/19 Urine Culture Result 1 (TEREZA) - Final, Complete 06/22/19 Blood Culture - Preliminary, Resulted NO GROWTH AFTER 2 DAYS Review of Systems Constitutional: yes: other (CONFUSED) Physical Exam General Appearance: no apparent distress Skin: warm Respiratory: bilateral CTA Heart: S1S2 Abdomen: soft, bowel sounds present Genitourinary: bladder flat Extremities: pulses present Neurology: alert, follow commands, non-verbal Assessment Assessment IMP UTI ? INFECTED BKA STUMP ANEMIA DM II HTN ESRD MET ENCEPHALOPATHY DYSPHAGIA PLAN CONT ANTIBIOTICS WOUND CARE HD TOMORROW CBI UROLOGY FOLLOWING NGT AND START TF FOR NOW D/W NANCY EMMANUEL MD Jun 25, 2019 11:06
[2019-06-25] MEDS: VANCOMYCIN PER PHARMACY MC PRN (12:00)
--- NOTE | 2019-06-25 12:11 | PDOC ---
CARDIO Progress Notes Date and Time Date of Service 06/25/2019 Time of Evaluation 1150 Subjective Subjective: No Chest Pain, No shortness of breath, No Palpitations, Other (does not known he is at [facility] and thought it was 2015) Vitals Vitals Vital Signs Date Time Temp Pulse Resp B/P (MAP) Pulse Ox O2 Delivery O2 Flow Rate FiO2 06/25/19 07:00 98.2 63 16 126/58 (80) 84 Room Air 98.2 Weight Weight [ ] Input and Output Intake and Output Intake and Output 06/25/19 06:59 Intake Total 0 ml Output Total 6000 ml Balance -6000 ml Intake Oral 0 ml Output Urine Total 6000 ml # Bowel Movements 3 Laboratory Labs Laboratory Tests Test 06/24/19 13:00 06/24/19 23:56 06/25/19 03:06 06/25/19 07:42 White Blood Count 8.8 x10^3/uL (4.0-11.0) Red Blood Count 3.42 x10^6/uL (4.30-5.70) Hemoglobin 10.0 g/dL (13.0-17.5) Hematocrit 30.0 % (39.0-53.0) Mean Corpuscular Volume 88 fL (79-100) Mean Corpuscular Hemoglobin 29 pg (25-35) Mean Corpuscular Hemoglobin Concent 33 g/dL (31-37) Red Cell Distribution Width 18.4 % (11.5-14.5) Platelet Count 392 x10^3/uL (140-400) Neutrophils (%) (Auto) 63 % (31-73) Lymphocytes (%) (Auto) 18 % (24-48) Monocytes (%) (Auto) 10 % (0-9) Eosinophils (%) (Auto) 8 % (0-3) Basophils (%) (Auto) 1 % (0-3) Neutrophils # (Auto) 5.5 x10^3/uL (1.8-7.7) Lymphocytes # (Auto) 1.5 x10^3/uL (1.0-4.8) Monocytes # (Auto) 0.9 x10^3/uL (0.0-1.1) Eosinophils # (Auto) 0.7 x10^3/uL (0.0-0.7) Basophils # (Auto) 0.1 x10^3/uL (0.0-0.2) Prothrombin Time 20.4 SEC (11.7-14.0) Prothromb Time International Ratio 1.8 (0.8-1.1) Sodium Level 144 mmol/L (136-145) Potassium Level 4.6 mmol/L (3.5-5.1) Chloride Level 99 mmol/L (98-107) Carbon Dioxide Level 29 mmol/L (21-32) Anion Gap 16 (6-14) Blood Urea Nitrogen 56 mg/dL (8-26) Creatinine 6.7 mg/dL (0.7-1.3) Estimated GFR (Cockcroft-Gault) 9.7 Glucose Level 86 mg/dL (70-99) Calcium Level 9.2 mg/dL (8.5-10.1) Random Vancomycin Level 16.0 mcg/mL Glucose (Fingerstick) 67 mg/dL (70-99) 105 mg/dL (70-99) 80 mg/dL (70-99) Test 06/25/19 09:46 Glucose (Fingerstick) 78 mg/dL (70-99) Microbiology Micro Microbiology 06/22/19 Urine Culture - Final, Complete 06/22/19 Urine Culture Result 1 (TEREZA) - Final, Complete 06/22/19 Blood Culture - Preliminary, Resulted NO GROWTH AFTER 2 DAYS Review of Systems Constitutional: yes: other (CONFUSED) Physical Exam HEENT: Neck Supple W Full Motion Chest: Symmetric LUNGS: Other (diminished bases) Heart: RRR (Atrial tach) Abdomen: Soft N/T Extremities: Other (bilateral BKA) Neurology: alert, follow commands, other (oriented to self) Assessment Assessment 1. UTI/cystitis: yeast per urine Cx. Notable hematuria/clots, on CBI Urology/ID following 2. Metabolic Encephalopathy: now verbal, better 3. NSTEMI: multifactorial. EF 45-50% unchanged. No CP 4. Chronic diastolic/systolic CHF: compensated 5. PAFIB: currently on atrial tach. Controlled 6. Hypertension; controlled 7. CAD; s/p PCI/stent in the past. clinically stable. CP free. 8. Hx of PAD: with bilateral BKA: left debridement pending today. 9. H/o CVA with left side hemiparesis 10. ESRD on HD 11. SSS s/p PPM ([employer]) VVIR, occasional brief NSVT 16% V paced 12. DM2/HLP: BG and lipids on goal. 13. Hx of psoas hematoma r/t to past coumadin Recommendations 1. ASA, continue with VTE prophylaxis. Start on lopressor low dose IV while NPO. 2. Fluid offloading/management via HD as per nephrology. 3. Not a candidate for previous coumadin due to past bleed with psoas hematoma. Continue ASA for stroke prevention 4. Currently poor candidate for coronary intervention due to significant acute extracardiac issues as noted above. Ischemic workup to be considered once acute extracardiac issues are resolved 5. Supportive care for now. Optimize medical therapy. 6. Consider palliative consult to address goals of care. MARIANN SCHAFER STUNT PERSON Jun 25, 2019 12:11
--- NOTE | 2019-06-25 12:37 | PDOC ---
Provider Note Provider Note Vascular S: Patient resting in bed. Patient continues to this a.m. O: Awake, confused to place and time. VSS, afebrile Left BKA wound with slough, no bogginess or fluctuance. No exposed bone. Inc isional necrosis laterally. A/P:78-year-old male with peripheral arterial disease and left below knee amputation site wound and incisional necrosis. Recommend continued antibiotics and local wound care. The patient would benefit from surgical debridement and wound VAC placement, patient is currently not medically stable for surgical intervention. Debridement is not urgent. Discussed plan of care with patient's nurse. UTI/cystitis Metabolic Encephalopathy NSTEMI ESRD on HD Dysphagia, patient failed Swallow Evaluation. Dobbhoff placement planned for today. Continue supportive care, ?consider palliative care to address patient and f emily's goals. STANLEY DUMONT APRN Jun 25, 2019 12:37
--- NOTE | 2019-06-25 13:13 | PDOC ---
PROGRESS NOTES Assessment Problems Medical Problems: (1) Altered mental status Status: Acute (2) Anemia in chronic illness Status: Chronic (3) CAD (coronary artery disease) Status: Chronic (4) Chronic a-fib Status: Chronic (5) DM2 (diabetes mellitus, type 2) Status: Chronic (6) ESRD (end stage renal disease) Status: Acute (7) HTN (hypertension) Status: Chronic (8) Metabolic encephalopathy Status: Acute (9) NSTEMI (non-ST elevated myocardial infarction) Status: Acute (10) Paroxysmal A-fib Status: Acute (11) Peripheral artery disease Status: Chronic (12) Severe protein-calorie malnutrition Status: Chronic (13) SSS (sick sinus syndrome) Status: Chronic (14) UTI (urinary tract infection) Status: Acute Metabolic encephalopathy with probable underlying dementia, related to urinary tract infection and leg wounds, no evidence of primary central nervous system infection, new stroke, or ongoing seizure activity. Has NSTEMI. He is more alert today Note that he has elevated troponin and ESR Note failed swallow study Plan I'll reorder the brain MRI given continued dysphagia Treat medical diseases Subjective No complaints Objective Vital Signs Date Time Temp Pulse Resp B/P (MAP) Pulse Ox O2 Delivery O2 Flow Rate FiO2 06/25/19 11:00 98.4 69 14 121/68 (85) 100 Room Air 98.4 Intake and Output 06/25/19 06:59 Intake Total 0 ml Output Total 6000 ml Balance -6000 ml Intake Oral 0 ml Output Urine Total 6000 ml # Bowel Movements 3 PHYSICAL EXAM Alert. Oriented to place and person, not date. PERRL. EOMI. CN: no focal findings. Muscle tone: normal. Muscle strength: 4/5 DTR: 0-1+ Plantar reflex: Bilateral below the knee amputations Gait: not examined in bed. Sensory exam: no abnormal findings. No cerebellar signs elicited. Review of Relevant I have reviewed the following items soumya (where applicable) has been applied. Labs Laboratory Tests Test 06/23/19 17:36 06/23/19 17:42 06/24/19 11:28 06/24/19 13:00 Glucose (Fingerstick) 78 mg/dL (70-99) 93 mg/dL (70-99) Urine Collection Type U cath Urine Color Brown Urine Clarity Turbid Urine pH Urine Specific [place] Urine Protein mg/dL (NEG-TRACE) Urine Glucose (UA) mg/dL (NEG) Urine Ketones (Stick) mg/dL (NEG) Urine Blood (NEG) Urine Nitrite (NEG) Urine Bilirubin (NEG) Urine Urobilinogen Dipstick mg/dL (0.2 mg/dL) Urine Leukocyte Esterase (NEG) Urine RBC /HPF (0-2) Urine WBC Tntc /HPF (0-4) Urine Bacteria Few /HPF (0-FEW) White Blood Count 8.8 x10^3/uL (4.0-11.0) Red Blood Count 3.42 x10^6/uL (4.30-5.70) Hemoglobin 10.0 g/dL (13.0-17.5) Hematocrit 30.0 % (39.0-53.0) Mean Corpuscular Volume 88 fL (79-100) Mean Corpuscular Hemoglobin 29 pg (25-35) Mean Corpuscular Hemoglobin Concent 33 g/dL (31-37) Red Cell Distribution Width 18.4 % (11.5-14.5) Platelet Count 392 x10^3/uL (140-400) Neutrophils (%) (Auto) 63 % (31-73) Lymphocytes (%) (Auto) 18 % (24-48) Monocytes (%) (Auto) 10 % (0-9) Eosinophils (%) (Auto) 8 % (0-3) Basophils (%) (Auto) 1 % (0-3) Neutrophils # (Auto) 5.5 x10^3/uL (1.8-7.7) Lymphocytes # (Auto) 1.5 x10^3/uL (1.0-4.8) Monocytes # (Auto) 0.9 x10^3/uL (0.0-1.1) Eosinophils # (Auto) 0.7 x10^3/uL (0.0-0.7) Basophils # (Auto) 0.1 x10^3/uL (0.0-0.2) Prothrombin Time 20.4 SEC (11.7-14.0) Prothromb Time International Ratio 1.8 (0.8-1.1) Sodium Level 144 mmol/L (136-145) Potassium Level 4.6 mmol/L (3.5-5.1) Chloride Level 99 mmol/L (98-107) Carbon Dioxide Level 29 mmol/L (21-32) Anion Gap 16 (6-14) Blood Urea Nitrogen 56 mg/dL (8-26) Creatinine 6.7 mg/dL (0.7-1.3) Estimated GFR (Cockcroft-Gault) 9.7 Glucose Level 86 mg/dL (70-99) Calcium Level 9.2 mg/dL (8.5-10.1) Random Vancomycin Level 16.0 mcg/mL Test 06/24/19 23:56 06/25/19 03:06 06/25/19 07:42 06/25/19 09:46 Glucose (Fingerstick) 67 mg/dL (70-99) 105 mg/dL (70-99) 80 mg/dL (70-99) 78 mg/dL (70-99) Test 06/25/19 12:03 Glucose (Fingerstick) 129 mg/dL (70-99) Laboratory Tests Test 06/24/19 23:56 06/25/19 03:06 06/25/19 07:42 06/25/19 09:46 Glucose (Fingerstick) 67 mg/dL (70-99) 105 mg/dL (70-99) 80 mg/dL (70-99) 78 mg/dL (70-99) Test 06/25/19 12:03 Glucose (Fingerstick) 129 mg/dL (70-99) Microbiology 06/22/19 Urine Culture - Final, Complete 06/22/19 Urine Culture Result 1 (TEREZA) - Final, Complete 06/22/19 Blood Culture - Preliminary, Resulted NO GROWTH AFTER 3 DAYS Medications Current Medications Vancomycin HCl 250 ml @ 250 mls/hr 1X ONCE IV ; Start 06/22/19 at 10:45; Stop 06/22/19 at 11:44; Status UNV Piperacillin Sod/ Tazobactam Sod 2.25 gm/Sodium Chloride 50 ml @ 100 mls/hr 1X ONCE IV Last administered on 06/22/19at 11:55; Start 06/22/19 at 10:45; Stop 06/22/19 at 11:14; Status DC Sodium Chloride 1,000 ml @ 100 mls/hr Q10H IV Last administered on 06/22/19at 11:55; Start 06/22/19 at 10:38; Stop 06/22/19 at 20:37; Status DC Vancomycin HCl 2 gm/Sodium Chloride 500 ml @ 250 mls/hr 1X ONCE IV Last administered on 06/22/19at 12:32; Start 06/22/19 at 11:30; Stop 06/22/19 at 13:29; Status DC Info (PHARMACY MONITORING -- do not chart) 1 each PRN DAILY PRN MC SEE COMMENTS; Start 06/22/19 at 16:30; Stop 06/24/19 at 11:38; Status DC Info (PHARMACY MONITORING -- do not chart) 1 each PRN DAILY PRN MC SEE COMMENTS; Start 06/22/19 at 16:30; Status UNV Sodium Chloride 1,000 ml @ 40 mls/hr Q24H IV Last administered on 06/24/19at 18:31; Start 06/22/19 at 17:30 Vancomycin HCl (Vanco Per Pharmacy) 1 each PRN DAILY PRN MC SEE COMMENTS Last administered on 06/25/19at 12:00; Start 06/22/19 at 17:30 Piperacillin Sod/ Tazobactam Sod (Zosyn Per Pharmacy) 1 each PRN DAILY PRN MC SEE COMMENTS; Start 06/22/19 at 17:30 Acetaminophen (Tylenol) 650 mg PRN Q6HRS PRN PO MILD PAIN / TEMP; Start 06/22/19 at 17:30 Ondansetron HCl (Zofran) 4 mg PRN Q6HRS PRN IV NAUSEA/VOMITING; Start 06/22/19 at 17:30 Clopidogrel Bisulfate (Plavix) 75 mg DAILYWBKFT PO ; Start 06/23/19 at 08:00 Vitamin B Complex/ Vitamin C (Rosalie-Judah) 1 tab DAILY PO ; Start 06/23/19 at 09:00 Allopurinol (Zyloprim) 100 mg DAILY PO ; Start 06/23/19 at 09:00 Atorvastatin Calcium (Lipitor) 40 mg QHS PO Last administered on 06/22/19at 21:37; Start 06/22/19 at 21:00; Stop 06/25/19 at 12:19; Status DC Pantoprazole Sodium (Protonix) 40 mg DAILYAC PO ; Start 06/23/19 at 07:30 Cyanocobalamin (Vitamin B-12) 1,000 mcg DAILY PO ; Start 06/23/19 at 09:00 Piperacillin Sod/ Tazobactam Sod 2.25 gm/Sodium Chloride 50 ml @ 100 mls/hr Q8HRS IV Last administered on 06/25/19at 05:39; Start 06/22/19 at 21:00 Heparin Sodium (Porcine) (Heparin Sodium) 5,000 unit BID SQ Last administered on 06/22/19at 21:37; Start 06/22/19 at 21:00; Stop 06/23/19 at 08:23; Status DC Insulin Human Lispro (HumaLOG) 0-6 UNITS BG 400-49... TIDWMEALS SQ ; Start 06/23/19 at 08:00 Vancomycin HCl (Vancomycin Random Level) 1 each 1X ONCE MC Last administered on 06/24/19at 06:37; Start 06/24/19 at 06:00; Stop 06/24/19 at 06:01; Status DC Heparin Sodium/ Dextrose 500 ml @ 19.3 mls/hr CONT PRN IV SEE I/O RECORD; Start 06/23/19 at 08:30; Stop 06/23/19 at 14:53; Status DC Heparin Sodium (Porcine) (Heparin Sodium) 2,000 unit PRN Q6HRS PRN IV FOR UFH LEVEL LESS THAN 0.2; Start 06/23/19 at 08:30; Stop 06/23/19 at 14:53; Status DC Aspirin (Ecotrin) 325 mg 1X ONCE PO ; Start 06/23/19 at 10:30; Stop 06/23/19 at 10:31; Status DC Aspirin (Ecotrin) 81 mg DAILYWBKFT PO ; Start 06/24/19 at 08:00 Ondansetron HCl (Zofran) 4 mg PRN Q6HRS PRN IV NAUSEA/VOMITING; Start 06/24/19 at 07:00; Stop 06/25/19 at 06:59; Status DC Morphine Sulfate (Morphine Sulfate) 1 mg PRN Q10MIN PRN IV SEVERE PAIN 7-10; Start 06/24/19 at 07:00; Stop 06/24/19 at 10:06; Status DC Ringer's Solution 1,000 ml @ 30 mls/hr Q24H IV ; Start 06/24/19 at 07:00; Stop 06/24/19 at 18:59; Status DC Lidocaine HCl (Xylocaine-Mpf 1% 2ml Vial) 2 ml PRN 1X PRN ID PRIOR TO IV START; Start 06/24/19 at 07:00; Stop 06/25/19 at 06:59; Status DC Hydromorphone HCl (Dilaudid) 0.5 mg PRN Q10MIN PRN IV SEV PAIN, Second choice; Start 06/24/19 at 07:00; Stop 06/24/19 at 10:06; Status DC Info (Anti-Coagulation Monitoring By Pharmacy) 1 each PRN DAILY PRN MC SEE COMMENTS Last administered on 06/23/19at 14:31; Start 06/23/19 at 14:30 Enoxaparin Sodium (Lovenox Per Pharmacy Treatment Dosing) 1 each 1X PRN MC SEE COMMENTS; Start 06/23/19 at 14:45; Stop 06/23/19 at 21:00; Status DC Enoxaparin Sodium (Lovenox 80mg Syringe) 80 mg 1X ONCE SQ Last administered on 06/23/19at 15:16; Start 06/23/19 at 15:30; Stop 06/23/19 at 15:31; Status DC Heparin Sodium (Porcine) (Heparin Sodium) 5,000 unit Q12HR SQ Last administered on 06/25/19at 09:30; Start 06/24/19 at 11:00 Acetaminophen (Tylenol Supp) 650 mg PRN Q6HRS PRN [place] MILD PAIN / TEMP Last administered on 06/24/19at 23:03; Start 06/24/19 at 10:30 Tramadol HCl (Ultram) 25 mg PRN Q6HRS PRN PO PAIN MODERATE PAIN; Start 06/24/19 at 10:30 Ketorolac Tromethamine (Toradol 15mg Vial) 15 mg PRN Q6HRS PRN IV PAIN Last administered on 06/24/19at 11:00; Start 06/24/19 at 10:30; Stop 06/29/19 at 10:29 Sodium Chloride 1,000 ml @ 1,000 mls/hr Q1H PRN IV hypotension; Start 06/24/19 at 11:27; Stop 06/24/19 at 17:26; Status DC Sodium Chloride 1,000 ml @ 400 mls/hr Q2H30M PRN IV PATENCY; Start 06/24/19 at 11:27; Stop 06/24/19 at 23:26; Status DC Info (PHARMACY MONITORING -- do not chart) 1 each PRN DAILY PRN MC SEE COMMENTS; Start 06/24/19 at 11:30 Info (PHARMACY MONITORING -- do not chart) 1 each PRN DAILY PRN MC SEE COMMENTS; Start 06/24/19 at 11:30; Status UNV Vancomycin HCl 500 mg/Sodium Chloride 100 ml @ 100 mls/hr QMWF IV Last administered on 06/24/19at 16:48; Start 06/24/19 at 16:00 Dextrose (Dextrose 50%-Water Syringe) 12.5 gm PRN Q15MIN PRN IV SEE COMMENTS Last administered on 06/25/19at 01:41; Start 06/25/19 at 01:30 Dextrose 250 ml PRN Q15MIN PRN IV SEE COMMENTS; Start 06/25/19 at 01:30 Micafungin Sodium 100 mg/Dextrose 100 ml @ 100 mls/hr Q24H IV Last administered on 06/25/19at 09:30; Start 06/25/19 at 09:00 Metoprolol Tartrate (Lopressor Vial) 2.5 mg Q6HRS IVP ; Start 06/25/19 at 18:00 Atorvastatin Calcium (Lipitor) 10 mg QHS PO ; Start 06/25/19 at 21:00 Active Scripts Active [place] 5-325 Tablet (Acetaminophen/Hydrocodone Bitart) 1 Each Tablet 0.5 Tab PO Q4HRS Zyvox (Linezolid) 600 Mg Tablet 600 Mg PO BID 4 Days Amox Tr-K Clv 500-125 Mg Tab (Amoxicillin/Potassium Clav) 1 Each Tablet 1 Tab PO DAILY 4 Days Tramadol Hcl 50 Mg Tablet 50 Mg PO PRN Q6HRS PRN Ondansetron Odt (Ondansetron) 4 Mg Tab.rapdis 4 Mg PO Q6HRS PRN Humalog (Insulin Lispro) 100 Unit/1 Ml Insuln.pen 0 Units SQ TIDWMEALS 30 Days BG 150-199= 1 units 200-299= 2 units 300-399= 4 units 400-499= 6 units ac tid sliding scale Reported Omeprazole 20 Mg Tablet.dr 1 Tab PO DAILY Vitamin D3 (Cholecalciferol (Vitamin D3)) 1,000 Unit Tablet 1 Tab PO DAILY Vitamin B-12 (Cyanocobalamin (Vitamin B-12)) 1,000 Mcg Tablet 1 Tab PO DAILY Senna (Sennosides) 8.6 Mg Tablet 8.6 Mg PO PRN DAILY PRN 2 tabs Renvela (Sevelamer Carbonate) 800 Mg Tablet 800 Mg PO TIDWMEALS Renal Caps Softgel (Folic Acid/Vitamin B Comp W-C) 1 Mg Capsule 1 Mg PO DAILY Reglan (Metoclopramide Hcl) 10 Mg Tablet 5 Mg PO TID Probiotic (Lactobacillus Acidophilus) 1 Each Capsule 1 Each PO BID Milk Of Magnesia (Magnesium Hydroxide) 400 Mg/5 Ml Oral.susp 400 Mg PO PRN DAILY PRN Lipitor (Atorvastatin Calcium) 40 Mg Tablet 1 Tab PO QHS Humalog (Insulin Lispro) 100 Unit/1 Ml Insuln.pen 100 Unit SQ TIDBFRMEAL 150-199=1 unit 200-299=2 units 300-399=4 units 100-499=6 units Clopidogrel (Clopidogrel Bisulfate) 75 Mg Tablet 1 Tab PO DAILY Duoneb 0.5-3(2.5) Mg/3 Ml (Albuterol/Ipratropium) 3 Ml Ampul.neb 3 Ml NEB PRN Q4HRS PRN Lac-Hydrin Five (Ammonium Lactate) 226 Gm Lotion 226 Gm TP BID Allopurinol 100 Mg Tablet 1 Tab PO DAILY Tylenol (Acetaminophen) 325 Mg Tablet 1 Tab PO PRN Q4HRS Aspirin 81 Mg Tab.chew 81 Mg PO DAILY Vitals/I & O Vital Sign - Last 24 Hours 06/24/19 06/24/19 06/25/19 06/25/19 19:00 23:00 03:00 07:00 Temp 98.5 98.4 98.3 98.2 98.5 98.4 98.3 98.2 Pulse 66 58 69 63 Resp 26 20 20 16 B/P (MAP) 113/51 (71) 124/67 (86) 116/62 (80) 126/58 (80) Pulse Ox 97 98 100 84 O2 Delivery Room Air Room Air Room Air Room Air 06/25/19 11:00 Temp 98.4 98.4 Pulse 69 Resp 14 B/P (MAP) 121/68 (85) Pulse Ox 100 O2 Delivery Room Air Intake and Output 06/24/19 06/24/19 06/25/19 14:59 22:59 06:59 Intake Total 0 ml Output Total 2450 ml 3550 ml Balance -2450 ml -3550 ml BAN TORRES MD Jun 25, 2019 13:13
[2019-06-25 15:00] VITALS: BP 118/86
[2019-06-25] MEDS: KETOROLAC 15 MG/ML VIAL. IV PRN (15:01)
--- NOTE | 2019-06-25 15:34 | RAD ---
AP supine view of the abdomen Clinical indications: New Dobbhoff tube placement. IMPRESSION: Tip of Dobbhoff tube is seen within the gastric cardia. It may be advanced another 10 cm. No obstructive bowel pattern is seen. Electronically signed by: Leno Kovacs MD (06/25/2019 3:31 PM) [id number]
[2019-06-25] MEDS: ANTI-COAG MONITOR BY PHARMACY. MC PRN (16:28)
--- NOTE | 2019-06-25 18:00 | RAD ---
AP abdomen radiograph 06/25/2019 CLINICAL HISTORY: Feeding tube repositioning. An AP supine portable digital radiograph of the abdomen was obtained. Comparison study is dated earlier today at 1510 hours. The feeding tube has been repositioned. The tip of the tube overlies the expected location of the antrum of the stomach/first portion the duodenum. The cardiac silhouette is mildly enlarged. The lung bases are clear. The abdominal bowel gas pattern is nonobstructive. The osseous structures are unchanged. IMPRESSION: The tip of the feeding tube overlies the antrum of the stomach/first portion of the duodenum. Electronically signed by: Clovis Lester MD (06/25/2019 5:57 PM) [facility]
[2019-06-25] MEDS: CYANOCOBALAMIN (VITAMIN B-12) 1,000 MCG TABLET. PO SCH (18:30)
[2019-06-25] MEDS: FOLIC/VIT B COMP W-C (RENAL) TABLET. PO SCH (18:30)
[2019-06-25] MEDS: CLOPIDOGREL BISULFATE 75 MG TABLET PO SCH (18:30)
[2019-06-25] MEDS: METOPROLOL TARTRATE 5 MG/5 ML VIAL. IVP SCH (18:53)
[2019-06-25 19:23] VITALS: BP 115/55
[2019-06-25] MEDS: ATORVASTATIN CALCIUM 10 MG TABLET. PEG SCH (22:20)
[2019-06-25] MEDS: ACETAMINOPHEN 650 MG/20.3 ML SOLUTION. PEG PRN (22:20)
[2019-06-25 22:35] VITALS: BP 116/59
[2019-06-26 03:00] VITALS: BP 112/59
[2019-06-26 04:12] LABS: BASO # 0.1 x10^3/uL (0.0-0.2); BASO % 1 % (0-3); EOS # 0.7 x10^3/uL (0.0-0.7); EOS % 8 % (0-3); HEMOGLOBIN 10.7 g/dL (13.0-17.5); LYMPH # 1.4 x10^3/uL (1.0-4.8); LYMPH % 17 % (24-48); MEAN CORPUSCULAR HEMOGLOBIN 29 pg (25-35); MEAN CORPUSCULAR HGB CONC 32 g/dL (31-37); MEAN CORPUSCULAR VOLUME 89 fL (79-100); MONO # 0.7 x10^3/uL (0.0-1.1); MONO % 9 % (0-9); NEUT # 5.4 x10^3/uL (1.8-7.7); NEUT % 65 % (31-73); PLATELET COUNT 408 x10^3/uL (140-400); RED BLOOD COUNT 3.73 x10^6/uL (4.30-5.70); RED CELL DISTRIBUTION WIDTH 18.4 % (11.5-14.5); WHITE BLOOD COUNT 8.2 x10^3/uL (4.0-11.0)
[2019-06-26 04:24] LABS: CALCIUM 9.1 mg/dL (8.5-10.1); CREATININE 5.3 mg/dL (0.7-1.3); GFR 12.8; POTASSIUM 4.2 mmol/L (3.5-5.1)
[2019-06-26] MEDS: METOPROLOL TARTRATE 5 MG/5 ML VIAL. IVP SCH ×5 (06:00→17:14)
[2019-06-26 07:00] VITALS: BP 103/44
[2019-06-26] MEDS ORDERED: IV RINGERS,LACTATED 1000ML 1,000 ML IV SCH (07:00)
[2019-06-26] MEDS ORDERED: LIDOCAINE 1% PF 2 ML VIAL. ID PRN (07:00)
[2019-06-26] MEDS ORDERED: ONDANSETRON PF 4 MG/2 ML VIAL. IV PRN (07:00)
[2019-06-26] MEDS ORDERED: HYDROmorphone 2 MG/ML VIAL IV PRN (07:00)
[2019-06-26] MEDS ORDERED: MORPHINE SULFATE 2 MG/ML VIAL. IV PRN (07:00)
[2019-06-26] MEDS: PIPERACILLIN/TAZOBACTAM 2.25 GM in IV NORMAL SALINE 50ML 50 ML IV SCH ×3 (07:59→20:49)
[2019-06-26] MEDS: INSULIN LISPRO 300 UNITS/3 ML VIAL. SQ SCH ×3 (08:00→17:00)
--- NOTE | 2019-06-26 08:01 | PDOC ---
Infectious Disease Note Subjective: Subjective pt is sleepy underwent ngt placement yesterday d/w rn Vital Signs: Vital Signs Vital Signs Date Time Temp Pulse Resp B/P (MAP) Pulse Ox O2 Delivery O2 Flow Rate FiO2 06/26/19 04:34 57 06/26/19 03:00 97.9 18 112/59 (76) 100 Room Air 97.9 Physical Exam: PHYSICAL EXAM GENERAL: Lethargic, opens eyes when I called out his name, appears comfortable. No icterus. NECK: Supple. HEART: S1, S2. LUNGS: Clear bilaterally. ABDOMEN: Soft, nontender, obese. Bowel sounds present. yeast in groin EXTREMITIES: Right below knee amputation, scar healthy, left lower extremity amputation stump has a wound with a necrotic area. No bony exposure. No bogginess, excoriation bilateral groin. Right upper extremity AV fistula site looks okay. BACK: Has a superficial stage 1 sacral wound, I was not able to examine as the patient is being transferred to the second floor. No generalized rash, dry skin. 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 Medications: Inpatient Meds: Current Medications Medications (Trade) Dose Ordered Sig/Mitzi Start Time Stop Time Status Last Admin Dose Admin Acetaminophen (Tylenol Supp) 650 mg PRN Q6HRS PRN 06/24/19 10:30 06/24/19 23:03 650 MG Acetaminophen (Tylenol) 650 mg PRN Q6HRS PRN 06/25/19 18:15 06/25/19 22:23 650 MG Allopurinol (Zyloprim) 100 mg DAILY 06/25/19 18:17 Aspirin (Children'S Aspirin) 81 mg DAILYWBKFT 06/26/19 08:00 Aspirin (Ecotrin) 81 mg DAILYWBKFT 06/24/19 08:00 06/25/19 18:16 DC Atorvastatin Calcium (Lipitor) 10 mg QHS 06/25/19 21:00 06/25/19 22:23 10 MG Clopidogrel Bisulfate (Plavix) 75 mg DAILYWBKFT 06/23/19 08:00 06/25/19 18:55 75 MG Cyanocobalamin (Vitamin B-12) 1,000 mcg DAILY 06/23/19 09:00 06/25/19 18:55 1,000 MCG Dextrose 250 ml PRN Q15MIN PRN 06/25/19 01:30 Dextrose (Dextrose 50%-Water Syringe) 12.5 gm PRN Q15MIN PRN 06/25/19 01:30 06/25/19 01:41 12.5 GM Enoxaparin Sodium (Lovenox 80mg Syringe) 80 mg 1X ONCE 06/23/19 15:30 06/23/19 15:31 DC 06/23/19 15:16 80 MG Enoxaparin Sodium (Lovenox Per Pharmacy Treatment Dosing) 1 each 1X PRN 06/23/19 14:45 06/23/19 21:00 DC Heparin Sodium (Porcine) (Heparin Sodium) 5,000 unit Q12HR 06/24/19 11:00 06/25/19 22:23 5,000 UNIT Heparin Sodium/ Dextrose 500 ml @ 19.3 mls/hr CONT PRN 06/23/19 08:30 06/23/19 14:53 DC Hydromorphone HCl (Dilaudid) 0.5 mg PRN Q10MIN PRN 06/26/19 07:00 06/27/19 06:59 Info (Anti-Coagulation Monitoring By Pharmacy) 1 each PRN DAILY PRN 06/23/19 14:30 06/25/19 16:28 1 EACH Info (PHARMACY MONITORING -- do not chart) 1 each PRN DAILY PRN 06/24/19 11:30 UNV Insulin Human Lispro (HumaLOG) 0-6 UNITS BG 400-49... TIDWMEALS 06/23/19 08:00 Ketorolac Tromethamine (Toradol 15mg Vial) 15 mg PRN Q6HRS PRN 06/24/19 10:30 06/29/19 10:29 06/25/19 15:02 15 MG Lidocaine HCl (Xylocaine-Mpf 1% 2ml Vial) 2 ml PRN 1X PRN 06/26/19 07:00 06/27/19 06:59 Metoprolol Tartrate (Lopressor Vial) 2.5 mg Q6HRS 06/25/19 18:00 06/25/19 18:55 2.5 MG Micafungin Sodium 100 mg/Dextrose 100 ml @ 100 mls/hr Q24H 06/25/19 09:00 06/25/19 09:30 100 MLS/HR Morphine Sulfate (Morphine Sulfate) 1 mg PRN Q10MIN PRN 06/26/19 07:00 06/27/19 06:59 Ondansetron HCl (Zofran) 4 mg PRN Q6HRS PRN 06/26/19 07:00 06/27/19 06:59 Pantoprazole Sodium (Protonix) 40 mg DAILYAC 06/23/19 07:30 Piperacillin Sod/ Tazobactam Sod (Zosyn Per Pharmacy) 1 each PRN DAILY PRN 06/22/19 17:30 Piperacillin Sod/ Tazobactam Sod 2.25 gm/Sodium Chloride 50 ml @ 100 mls/hr Q8HRS 06/22/19 21:00 06/25/19 22:23 100 MLS/HR Quetiapine Fumarate (SEROquel) 12.5 mg PRN Q8HRS PRN 06/25/19 19:45 Ringer's Solution 1,000 ml @ 30 mls/hr Q24H 06/26/19 07:00 06/26/19 18:59 Sodium Chloride 1,000 ml @ 400 mls/hr Q2H30M PRN 06/24/19 11:27 06/24/19 23:26 DC Tramadol HCl (Ultram) 25 mg PRN Q6HRS PRN 06/24/19 10:30 Vancomycin HCl (Vanco Per Pharmacy) 1 each PRN DAILY PRN 06/22/19 17:30 06/25/19 12:00 1 EACH Vancomycin HCl (Vancomycin Random Level) 1 each 1X ONCE 06/24/19 06:00 06/24/19 06:01 DC 06/24/19 06:37 1 EACH Vancomycin HCl 500 mg/Sodium Chloride 100 ml @ 100 mls/hr QMWF 06/24/19 16:00 06/24/19 16:48 100 MLS/HR Vancomycin HCl 2 gm/Sodium Chloride 500 ml @ 250 mls/hr 1X ONCE 06/22/19 11:30 06/22/19 13:29 DC 06/22/19 12:32 250 MLS/HR Vitamin A/Vitamin D (Vitamin A & D Ointment) 1 héctor PRN BID PRN 06/26/19 06:00 Vitamin B Complex/ Vitamin C (Rosalie-Judah) 1 tab DAILY 06/23/19 09:00 06/25/19 18:55 1 TAB Labs: Lab Laboratory Tests Test 06/25/19 09:46 06/25/19 12:03 06/25/19 17:38 06/25/19 21:25 Glucose (Fingerstick) 78 mg/dL (70-99) 129 mg/dL (70-99) 94 mg/dL (70-99) 101 mg/dL (70-99) Test 06/26/19 01:48 06/26/19 03:30 06/26/19 06:16 Glucose (Fingerstick) 159 mg/dL (70-99) 92 mg/dL (70-99) White Blood Count 8.2 x10^3/uL (4.0-11.0) Red Blood Count 3.73 x10^6/uL (4.30-5.70) Hemoglobin 10.7 g/dL (13.0-17.5) Hematocrit 33.0 % (39.0-53.0) Mean Corpuscular Volume 89 fL (79-100) Mean Corpuscular Hemoglobin 29 pg (25-35) Mean Corpuscular Hemoglobin Concent 32 g/dL (31-37) Red Cell Distribution Width 18.4 % (11.5-14.5) Platelet Count 408 x10^3/uL (140-400) Neutrophils (%) (Auto) 65 % (31-73) Lymphocytes (%) (Auto) 17 % (24-48) Monocytes (%) (Auto) 9 % (0-9) Eosinophils (%) (Auto) 8 % (0-3) Basophils (%) (Auto) 1 % (0-3) Neutrophils # (Auto) 5.4 x10^3/uL (1.8-7.7) Lymphocytes # (Auto) 1.4 x10^3/uL (1.0-4.8) Monocytes # (Auto) 0.7 x10^3/uL (0.0-1.1) Eosinophils # (Auto) 0.7 x10^3/uL (0.0-0.7) Basophils # (Auto) 0.1 x10^3/uL (0.0-0.2) Sodium Level 142 mmol/L (136-145) Potassium Level 4.2 mmol/L (3.5-5.1) Chloride Level 99 mmol/L (98-107) Carbon Dioxide Level 32 mmol/L (21-32) Anion Gap 11 (6-14) Blood Urea Nitrogen 36 mg/dL (8-26) Creatinine 5.3 mg/dL (0.7-1.3) Estimated GFR (Cockcroft-Gault) 12.8 Glucose Level 128 mg/dL (70-99) Calcium Level 9.1 mg/dL (8.5-10.1) Objective: Assessment: 1. Urinary tract infection. No leukocyte esterase or nitrite done. Not done again on repeat UA 06/24. urine had pus like appearance when allan placement was attemp ketan, no allan in place yeast on uc likely colonization 2. Altered mental status, likely multifactorial, improving. CT head negative. 3. 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 End-stage renal disease, on hemodialysis. 5. Low-grade fevers. 6. group home resident. 7. Anemia of chronic disease. 8. Severe protein-calorie malnutrition. 9. Chronic atrial fibrillation. 10. High troponin with working diagnosis of non-STEMI. 11. Chronic sacral wound, superficial. 12. Yeast in groin 13. Dysphagia on ngt Plan: Plan of Care - Continue Vanc,Zosyn, renal dosing -micafungin - f/u c/s and labs -Vascular Surgery planning for I and D on Mon - Continue local wound care. - Continue supportive care. - consider palliative care Discussed with RN. MELISSA MOLINA MD Jun 26, 2019 08:01
[2019-06-26] MEDS: CLOPIDOGREL BISULFATE 75 MG TABLET PO SCH (09:06)
[2019-06-26] MEDS: ALLOPURINOL 100 MG TABLET. PEG SCH (09:06)
[2019-06-26] MEDS: FOLIC/VIT B COMP W-C (RENAL) TABLET. PO SCH (09:06)
[2019-06-26] MEDS: PANTOPRAZOLE 40 MG TABLET.DR. PO SCH (09:06)
[2019-06-26] MEDS: ASPIRIN CHEWABLE 81 MG TABLET. PEG SCH (09:07)
[2019-06-26] MEDS: CYANOCOBALAMIN (VITAMIN B-12) 1,000 MCG TABLET. PO SCH (09:12)
[2019-06-26] MEDS: MICAFUNGIN 100 MG in IV DEXTROSE 5% 100ML 100 ML IV SCH (09:35)
--- NOTE | 2019-06-26 09:38 | PDOC ---
PROGRESS NOTES Assessment Problems Medical Problems: (1) Altered mental status Status: Acute (2) Anemia in chronic illness Status: Chronic (3) CAD (coronary artery disease) Status: Chronic (4) Chronic a-fib Status: Chronic (5) DM2 (diabetes mellitus, type 2) Status: Chronic (6) ESRD (end stage renal disease) Status: Acute (7) HTN (hypertension) Status: Chronic (8) Metabolic encephalopathy Status: Acute (9) NSTEMI (non-ST elevated myocardial infarction) Status: Acute (10) Paroxysmal A-fib Status: Acute (11) Peripheral artery disease Status: Chronic (12) Severe protein-calorie malnutrition Status: Chronic (13) SSS (sick sinus syndrome) Status: Chronic (14) UTI (urinary tract infection) Status: Acute Metabolic encephalopathy with probable underlying dementia, related to urinary tract infection and leg wounds, no evidence of primary central nervous system infection, new stroke, or ongoing seizure activity. Has NSTEMI. He is more alert today Note that he has elevated troponin and ESR Note failed swallow study, Dobhoff placed Plan Await brain MRI given continued dysphagia Treat medical diseases Subjective None Objective Vital Signs Date Time Temp Pulse Resp B/P (MAP) Pulse Ox O2 Delivery O2 Flow Rate FiO2 06/26/19 08:06 63 103/44 06/26/19 07:00 98.4 18 100 Room Air 98.4 Intake and Output 06/26/19 06:59 Intake Total 1800 ml Output Total 43918 ml Balance -74112 ml IV Total 1140 ml Tube Feeding 660 ml Output Urine Total 23112 ml PHYSICAL EXAM Somnolent, rouses slightly to voice PERRL. EOMI. CN: no focal findings. Muscle tone: normal. Muscle strength: 4/5 DTR: 0-1+ Plantar reflex: Bilateral below the knee amputations Gait: not examined in bed. Sensory exam: no abnormal findings. No cerebellar signs elicited. Review of Relevant I have reviewed the following items soumya (where applicable) has been applied. Labs Laboratory Tests Test 06/24/19 11:28 06/24/19 13:00 06/24/19 23:56 06/25/19 03:06 Glucose (Fingerstick) 93 mg/dL (70-99) 67 mg/dL (70-99) 105 mg/dL (70-99) White Blood Count 8.8 x10^3/uL (4.0-11.0) Red Blood Count 3.42 x10^6/uL (4.30-5.70) Hemoglobin 10.0 g/dL (13.0-17.5) Hematocrit 30.0 % (39.0-53.0) Mean Corpuscular Volume 88 fL (79-100) Mean Corpuscular Hemoglobin 29 pg (25-35) Mean Corpuscular Hemoglobin Concent 33 g/dL (31-37) Red Cell Distribution Width 18.4 % (11.5-14.5) Platelet Count 392 x10^3/uL (140-400) Neutrophils (%) (Auto) 63 % (31-73) Lymphocytes (%) (Auto) 18 % (24-48) Monocytes (%) (Auto) 10 % (0-9) Eosinophils (%) (Auto) 8 % (0-3) Basophils (%) (Auto) 1 % (0-3) Neutrophils # (Auto) 5.5 x10^3/uL (1.8-7.7) Lymphocytes # (Auto) 1.5 x10^3/uL (1.0-4.8) Monocytes # (Auto) 0.9 x10^3/uL (0.0-1.1) Eosinophils # (Auto) 0.7 x10^3/uL (0.0-0.7) Basophils # (Auto) 0.1 x10^3/uL (0.0-0.2) Prothrombin Time 20.4 SEC (11.7-14.0) Prothromb Time International Ratio 1.8 (0.8-1.1) Sodium Level 144 mmol/L (136-145) Potassium Level 4.6 mmol/L (3.5-5.1) Chloride Level 99 mmol/L (98-107) Carbon Dioxide Level 29 mmol/L (21-32) Anion Gap 16 (6-14) Blood Urea Nitrogen 56 mg/dL (8-26) Creatinine 6.7 mg/dL (0.7-1.3) Estimated GFR (Cockcroft-Gault) 9.7 Glucose Level 86 mg/dL (70-99) Calcium Level 9.2 mg/dL (8.5-10.1) Random Vancomycin Level 16.0 mcg/mL Test 06/25/19 07:42 06/25/19 09:46 06/25/19 12:03 06/25/19 17:38 Glucose (Fingerstick) 80 mg/dL (70-99) 78 mg/dL (70-99) 129 mg/dL (70-99) 94 mg/dL (70-99) Test 06/25/19 21:25 06/26/19 01:48 06/26/19 03:30 06/26/19 06:16 Glucose (Fingerstick) 101 mg/dL (70-99) 159 mg/dL (70-99) 92 mg/dL (70-99) White Blood Count 8.2 x10^3/uL (4.0-11.0) Red Blood Count 3.73 x10^6/uL (4.30-5.70) Hemoglobin 10.7 g/dL (13.0-17.5) Hematocrit 33.0 % (39.0-53.0) Mean Corpuscular Volume 89 fL (79-100) Mean Corpuscular Hemoglobin 29 pg (25-35) Mean Corpuscular Hemoglobin Concent 32 g/dL (31-37) Red Cell Distribution Width 18.4 % (11.5-14.5) Platelet Count 408 x10^3/uL (140-400) Neutrophils (%) (Auto) 65 % (31-73) Lymphocytes (%) (Auto) 17 % (24-48) Monocytes (%) (Auto) 9 % (0-9) Eosinophils (%) (Auto) 8 % (0-3) Basophils (%) (Auto) 1 % (0-3) Neutrophils # (Auto) 5.4 x10^3/uL (1.8-7.7) Lymphocytes # (Auto) 1.4 x10^3/uL (1.0-4.8) Monocytes # (Auto) 0.7 x10^3/uL (0.0-1.1) Eosinophils # (Auto) 0.7 x10^3/uL (0.0-0.7) Basophils # (Auto) 0.1 x10^3/uL (0.0-0.2) Sodium Level 142 mmol/L (136-145) Potassium Level 4.2 mmol/L (3.5-5.1) Chloride Level 99 mmol/L (98-107) Carbon Dioxide Level 32 mmol/L (21-32) Anion Gap 11 (6-14) Blood Urea Nitrogen 36 mg/dL (8-26) Creatinine 5.3 mg/dL (0.7-1.3) Estimated GFR (Cockcroft-Gault) 12.8 Glucose Level 128 mg/dL (70-99) Calcium Level 9.1 mg/dL (8.5-10.1) Laboratory Tests Test 06/25/19 09:46 06/25/19 12:03 06/25/19 17:38 06/25/19 21:25 Glucose (Fingerstick) 78 mg/dL (70-99) 129 mg/dL (70-99) 94 mg/dL (70-99) 101 mg/dL (70-99) Test 06/26/19 01:48 06/26/19 03:30 06/26/19 06:16 Glucose (Fingerstick) 159 mg/dL (70-99) 92 mg/dL (70-99) White Blood Count 8.2 x10^3/uL (4.0-11.0) Red Blood Count 3.73 x10^6/uL (4.30-5.70) Hemoglobin 10.7 g/dL (13.0-17.5) Hematocrit 33.0 % (39.0-53.0) Mean Corpuscular Volume 89 fL (79-100) Mean Corpuscular Hemoglobin 29 pg (25-35) Mean Corpuscular Hemoglobin Concent 32 g/dL (31-37) Red Cell Distribution Width 18.4 % (11.5-14.5) Platelet Count 408 x10^3/uL (140-400) Neutrophils (%) (Auto) 65 % (31-73) Lymphocytes (%) (Auto) 17 % (24-48) Monocytes (%) (Auto) 9 % (0-9) Eosinophils (%) (Auto) 8 % (0-3) Basophils (%) (Auto) 1 % (0-3) Neutrophils # (Auto) 5.4 x10^3/uL (1.8-7.7) Lymphocytes # (Auto) 1.4 x10^3/uL (1.0-4.8) Monocytes # (Auto) 0.7 x10^3/uL (0.0-1.1) Eosinophils # (Auto) 0.7 x10^3/uL (0.0-0.7) Basophils # (Auto) 0.1 x10^3/uL (0.0-0.2) Sodium Level 142 mmol/L (136-145) Potassium Level 4.2 mmol/L (3.5-5.1) Chloride Level 99 mmol/L (98-107) Carbon Dioxide Level 32 mmol/L (21-32) Anion Gap 11 (6-14) Blood Urea Nitrogen 36 mg/dL (8-26) Creatinine 5.3 mg/dL (0.7-1.3) Estimated GFR (Cockcroft-Gault) 12.8 Glucose Level 128 mg/dL (70-99) Calcium Level 9.1 mg/dL (8.5-10.1) Microbiology 06/22/19 Urine Culture - Final, Complete 06/22/19 Urine Culture Result 1 (TEREZA) - Final, Complete 06/22/19 Blood Culture - Preliminary, Resulted NO GROWTH AFTER 3 DAYS Medications Current Medications Vancomycin HCl 250 ml @ 250 mls/hr 1X ONCE IV ; Start 06/22/19 at 10:45; Stop 06/22/19 at 11:44; Status UNV Piperacillin Sod/ Tazobactam Sod 2.25 gm/Sodium Chloride 50 ml @ 100 mls/hr 1X ONCE IV Last administered on 06/22/19at 11:55; Start 06/22/19 at 10:45; Stop 06/22/19 at 11:14; Status DC Sodium Chloride 1,000 ml @ 100 mls/hr Q10H IV Last administered on 06/22/19at 11:55; Start 06/22/19 at 10:38; Stop 06/22/19 at 20:37; Status DC Vancomycin HCl 2 gm/Sodium Chloride 500 ml @ 250 mls/hr 1X ONCE IV Last administered on 06/22/19at 12:32; Start 06/22/19 at 11:30; Stop 06/22/19 at 13:29; Status DC Info (PHARMACY MONITORING -- do not chart) 1 each PRN DAILY PRN MC SEE COMMENTS; Start 06/22/19 at 16:30; Stop 06/24/19 at 11:38; Status DC Info (PHARMACY MONITORING -- do not chart) 1 each PRN DAILY PRN MC SEE COMMENTS; Start 06/22/19 at 16:30; Status UNV Sodium Chloride 1,000 ml @ 40 mls/hr Q24H IV Last administered on 06/24/19at 18:31; Start 06/22/19 at 17:30; Stop 06/25/19 at 19:44; Status DC Vancomycin HCl (Vanco Per Pharmacy) 1 each PRN DAILY PRN MC SEE COMMENTS Last administered on 06/25/19at 12:00; Start 06/22/19 at 17:30 Piperacillin Sod/ Tazobactam Sod (Zosyn Per Pharmacy) 1 each PRN DAILY PRN MC SEE COMMENTS; Start 06/22/19 at 17:30 Acetaminophen (Tylenol) 650 mg PRN Q6HRS PRN PO MILD PAIN / TEMP; Start 06/22/19 at 17:30; Stop 06/25/19 at 18:15; Status DC Ondansetron HCl (Zofran) 4 mg PRN Q6HRS PRN IV NAUSEA/VOMITING; Start 06/22/19 at 17:30 Clopidogrel Bisulfate (Plavix) 75 mg DAILYWBKFT PO Last administered on 06/26/19at 09:21; Start 06/23/19 at 08:00 Vitamin B Complex/ Vitamin C (Rosalie-Judah) 1 tab DAILY PO Last administered on 06/26/19at 09:21; Start 06/23/19 at 09:00 Allopurinol (Zyloprim) 100 mg DAILY PO ; Start 06/23/19 at 09:00; Stop 06/25/19 at 18:17; Status DC Atorvastatin Calcium (Lipitor) 40 mg QHS PO Last administered on 06/22/19at 21:37; Start 06/22/19 at 21:00; Stop 06/25/19 at 12:19; Status DC Pantoprazole Sodium (Protonix) 40 mg DAILYAC PO Last administered on 06/26/19 09:21; Start 06/23/19 at 07:30 Cyanocobalamin (Vitamin B-12) 1,000 mcg DAILY PO Last administered on 06/26/19 09:21; Start 06/23/19 at 09:00 Piperacillin Sod/ Tazobactam Sod 2.25 gm/Sodium Chloride 50 ml @ 100 mls/hr Q8HRS IV Last administered on 06/26/19at 08:02; Start 06/22/19 at 21:00 Heparin Sodium (Porcine) (Heparin Sodium) 5,000 unit BID SQ Last administered on 06/22/19at 21:37; Start 06/22/19 at 21:00; Stop 06/23/19 at 08:23; Status DC Insulin Human Lispro (HumaLOG) 0-6 UNITS BG 400-49... TIDWMEALS SQ ; Start 06/23/19 at 08:00 Vancomycin HCl (Vancomycin Random Level) 1 each 1X ONCE MC Last administered on 06/24/19at 06:37; Start 06/24/19 at 06:00; Stop 06/24/19 at 06:01; Status DC Heparin Sodium/ Dextrose 500 ml @ 19.3 mls/hr CONT PRN IV SEE I/O RECORD; Start 06/23/19 at 08:30; Stop 06/23/19 at 14:53; Status DC Heparin Sodium (Porcine) (Heparin Sodium) 2,000 unit PRN Q6HRS PRN IV FOR UFH LEVEL LESS THAN 0.2; Start 06/23/19 at 08:30; Stop 06/23/19 at 14:53; Status DC Aspirin (Ecotrin) 325 mg 1X ONCE PO ; Start 06/23/19 at 10:30; Stop 06/23/19 at 10:31; Status DC Aspirin (Ecotrin) 81 mg DAILYWBKFT PO ; Start 06/24/19 at 08:00; Stop 06/25/19 at 18:16; Status DC Ondansetron HCl (Zofran) 4 mg PRN Q6HRS PRN IV NAUSEA/VOMITING; Start 06/24/19 at 07:00; Stop 06/25/19 at 06:59; Status DC Morphine Sulfate (Morphine Sulfate) 1 mg PRN Q10MIN PRN IV SEVERE PAIN 7-10; Start 06/24/19 at 07:00; Stop 06/24/19 at 10:06; Status DC Ringer's Solution 1,000 ml @ 30 mls/hr Q24H IV ; Start 06/24/19 at 07:00; Stop 06/24/19 at 18:59; Status DC Lidocaine HCl (Xylocaine-Mpf 1% 2ml Vial) 2 ml PRN 1X PRN ID PRIOR TO IV START; Start 06/24/19 at 07:00; Stop 06/25/19 at 06:59; Status DC Hydromorphone HCl (Dilaudid) 0.5 mg PRN Q10MIN PRN IV SEV PAIN, Second choice; Start 06/24/19 at 07:00; Stop 06/24/19 at 10:06; Status DC Info (Anti-Coagulation Monitoring By Pharmacy) 1 each PRN DAILY PRN MC SEE COMMENTS Last administered on 06/25/19at 16:28; Start 06/23/19 at 14:30 Enoxaparin Sodium (Lovenox Per Pharmacy Treatment Dosing) 1 each 1X PRN MC SEE COMMENTS; Start 06/23/19 at 14:45; Stop 06/23/19 at 21:00; Status DC Enoxaparin Sodium (Lovenox 80mg Syringe) 80 mg 1X ONCE SQ Last administered on 06/23/19at 15:16; Start 06/23/19 at 15:30; Stop 06/23/19 at 15:31; Status DC Heparin Sodium (Porcine) (Heparin Sodium) 5,000 unit Q12HR SQ Last administered on 06/25/19at 22:23; Start 06/24/19 at 11:00 Acetaminophen (Tylenol Supp) 650 mg PRN Q6HRS PRN NM MILD PAIN / TEMP Last administered on 06/24/19at 23:03; Start 06/24/19 at 10:30 Tramadol HCl (Ultram) 25 mg PRN Q6HRS PRN PO PAIN MODERATE PAIN; Start 06/24/19 at 10:30 Ketorolac Tromethamine (Toradol 15mg Vial) 15 mg PRN Q6HRS PRN IV PAIN Last administered on 06/25/19at 15:02; Start 06/24/19 at 10:30; Stop 06/29/19 at 10:29 Sodium Chloride 1,000 ml @ 1,000 mls/hr Q1H PRN IV hypotension; Start 06/24/19 at 11:27; Stop 06/24/19 at 17:26; Status DC Sodium Chloride 1,000 ml @ 400 mls/hr Q2H30M PRN IV PATENCY; Start 06/24/19 at 11:27; Stop 06/24/19 at 23:26; Status DC Info (PHARMACY MONITORING -- do not chart) 1 each PRN DAILY PRN MC SEE COMMENTS; Start 06/24/19 at 11:30 Info (PHARMACY MONITORING -- do not chart) 1 each PRN DAILY PRN MC SEE COMMENTS; Start 06/24/19 at 11:30; Status UNV Vancomycin HCl 500 mg/Sodium Chloride 100 ml @ 100 mls/hr QMWF IV Last administered on 06/24/19at 16:48; Start 06/24/19 at 16:00 Dextrose (Dextrose 50%-Water Syringe) 12.5 gm PRN Q15MIN PRN IV SEE COMMENTS Last administered on 06/25/19at 01:41; Start 06/25/19 at 01:30 Dextrose 250 ml PRN Q15MIN PRN IV SEE COMMENTS; Start 06/25/19 at 01:30 Micafungin Sodium 100 mg/Dextrose 100 ml @ 100 mls/hr Q24H IV Last administered on 06/25/19at 09:30; Start 06/25/19 at 09:00 Metoprolol Tartrate (Lopressor Vial) 2.5 mg Q6HRS IVP Last administered on 06/26/19at 08:06; Start 06/25/19 at 18:00 Atorvastatin Calcium (Lipitor) 10 mg QHS PEG Last administered on 06/25/19at 22:23; Start 06/25/19 at 21:00 Ondansetron HCl (Zofran) 4 mg PRN Q6HRS PRN IV NAUSEA/VOMITING; Start 06/26/19 at 07:00; Stop 06/27/19 at 06:59 Morphine Sulfate (Morphine Sulfate) 1 mg PRN Q10MIN PRN IV SEVERE PAIN 7-10; Start 06/26/19 at 07:00; Stop 06/27/19 at 06:59 Ringer's Solution 1,000 ml @ 30 mls/hr Q24H IV ; Start 06/26/19 at 07:00; Stop 06/26/19 at 18:59 Lidocaine HCl (Xylocaine-Mpf 1% 2ml Vial) 2 ml PRN 1X PRN ID PRIOR TO IV START; Start 06/26/19 at 07:00; Stop 06/27/19 at 06:59 Hydromorphone HCl (Dilaudid) 0.5 mg PRN Q10MIN PRN IV SEV PAIN, Second choice; Start 06/26/19 at 07:00; Stop 06/27/19 at 06:59 Acetaminophen (Tylenol) 650 mg PRN Q6HRS PRN PEG MILD PAIN / TEMP Last administered on 06/25/19at 22:23; Start 06/25/19 at 18:15 Aspirin (Children'S Aspirin) 81 mg DAILYWBKFT PEG Last administered on 06/26/19at 09:21; Start 06/26/19 at 08:00 Allopurinol (Zyloprim) 100 mg DAILY PEG Last administered on 06/26/19at 09:21; Start 06/25/19 at 18:17 Quetiapine Fumarate (SEROquel) 12.5 mg PRN Q8HRS PRN PO PSYCHOTIC BEHAVIOR; Start 06/25/19 at 19:45 Vitamin A/Vitamin D (Vitamin A & D Ointment) 1 héctor PRN BID PRN TP SKIN PROTECTION; Start 06/26/19 at 06:00 Active Scripts Active Pyrites 5-325 Tablet (Acetaminophen/Hydrocodone Bitart) 1 Each Tablet 0.5 Tab PO Q4HRS Zyvox (Linezolid) 600 Mg Tablet 600 Mg PO BID 4 Days Amox Tr-K Clv 500-125 Mg Tab (Amoxicillin/Potassium Clav) 1 Each Tablet 1 Tab PO DAILY 4 Days Tramadol Hcl 50 Mg Tablet 50 Mg PO PRN Q6HRS PRN Ondansetron Odt (Ondansetron) 4 Mg Tab.rapdis 4 Mg PO Q6HRS PRN Humalog (Insulin Lispro) 100 Unit/1 Ml Insuln.pen 0 Units SQ TIDWMEALS 30 Days BG 150-199= 1 units 200-299= 2 units 300-399= 4 units 400-499= 6 units ac tid sliding scale Reported Omeprazole 20 Mg Tablet.dr 1 Tab PO DAILY Vitamin D3 (Cholecalciferol (Vitamin D3)) 1,000 Unit Tablet 1 Tab PO DAILY Vitamin B-12 (Cyanocobalamin (Vitamin B-12)) 1,000 Mcg Tablet 1 Tab PO DAILY Senna (Sennosides) 8.6 Mg Tablet 8.6 Mg PO PRN DAILY PRN 2 tabs Renvela (Sevelamer Carbonate) 800 Mg Tablet 800 Mg PO TIDWMEALS Renal Caps Softgel (Folic Acid/Vitamin B Comp W-C) 1 Mg Capsule 1 Mg PO DAILY Reglan (Metoclopramide Hcl) 10 Mg Tablet 5 Mg PO TID Probiotic (Lactobacillus Acidophilus) 1 Each Capsule 1 Each PO BID Milk Of Magnesia (Magnesium Hydroxide) 400 Mg/5 Ml Oral.susp 400 Mg PO PRN DAILY PRN Lipitor (Atorvastatin Calcium) 40 Mg Tablet 1 Tab PO QHS Humalog (Insulin Lispro) 100 Unit/1 Ml Insuln.pen 100 Unit SQ TIDBFRMEAL 150-199=1 unit 200-299=2 units 300-399=4 units 100-499=6 units Clopidogrel (Clopidogrel Bisulfate) 75 Mg Tablet 1 Tab PO DAILY Duoneb 0.5-3(2.5) Mg/3 Ml (Albuterol/Ipratropium) 3 Ml Ampul.neb 3 Ml NEB PRN Q4HRS PRN Lac-Hydrin Five (Ammonium Lactate) 226 Gm Lotion 226 Gm TP BID Allopurinol 100 Mg Tablet 1 Tab PO DAILY Tylenol (Acetaminophen) 325 Mg Tablet 1 Tab PO PRN Q4HRS Aspirin 81 Mg Tab.chew 81 Mg PO DAILY Vitals/I & O Vital Sign - Last 24 Hours 06/25/19 06/25/19 06/25/19 06/25/19 11:00 15:00 18:55 19:23 Temp 98.4 98.7 98.6 98.4 98.7 98.6 Pulse 69 70 72 59 Resp 14 15 16 B/P (MAP) 121/68 (85) 118/86 (97) 115/55 115/55 (75) Pulse Ox 100 98 99 O2 Delivery Room Air Room Air Room Air 06/25/19 06/26/19 06/26/19 06/26/19 22:35 03:00 04:34 07:00 Temp 97.9 97.9 98.4 97.9 97.9 98.4 Pulse 63 65 57 63 Resp 18 18 18 B/P (MAP) 116/59 (78) 112/59 (76) 103/44 (63) Pulse Ox 100 100 100 O2 Delivery Room Air Room Air Room Air 06/26/19 08:06 Pulse 63 B/P (MAP) 103/44 Intake and Output 06/25/19 06/25/19 06/26/19 14:59 22:59 06:59 Intake Total 370 ml 1430 ml Output Total 6925 ml 14634 ml 4800 ml Balance -6925 ml -59516 ml -3370 ml BAN TORRES MD Jun 26, 2019 09:38
[2019-06-26] MEDS: HEPARIN for SUB-Q USE 5,000 UNIT/ML VIAL. SQ SCH ×2 (09:52→20:56)
--- NOTE | 2019-06-26 09:56 | PDOC ---
Renal-Progress Notes Subjective Notes Notes LESS CONFUSED History of Present Illness Hx of present illness NO CHANGE Vitals Vitals Vital Signs Date Time Temp Pulse Resp B/P (MAP) Pulse Ox O2 Delivery O2 Flow Rate FiO2 06/26/19 08:06 63 103/44 06/26/19 07:00 98.4 18 100 Room Air 98.4 Weight Weight [ ] I.O. Intake and Output Intake and Output 06/26/19 06:59 Intake Total 1800 ml Output Total 13303 ml Balance -98530 ml IV Total 1140 ml Tube Feeding 660 ml Output Urine Total 41188 ml Labs Labs Laboratory Tests Test 06/25/19 12:03 06/25/19 17:38 06/25/19 21:25 06/26/19 01:48 Glucose (Fingerstick) 129 mg/dL (70-99) 94 mg/dL (70-99) 101 mg/dL (70-99) 159 mg/dL (70-99) Test 06/26/19 03:30 06/26/19 06:16 White Blood Count 8.2 x10^3/uL (4.0-11.0) Red Blood Count 3.73 x10^6/uL (4.30-5.70) Hemoglobin 10.7 g/dL (13.0-17.5) Hematocrit 33.0 % (39.0-53.0) Mean Corpuscular Volume 89 fL (79-100) Mean Corpuscular Hemoglobin 29 pg (25-35) Mean Corpuscular Hemoglobin Concent 32 g/dL (31-37) Red Cell Distribution Width 18.4 % (11.5-14.5) Platelet Count 408 x10^3/uL (140-400) Neutrophils (%) (Auto) 65 % (31-73) Lymphocytes (%) (Auto) 17 % (24-48) Monocytes (%) (Auto) 9 % (0-9) Eosinophils (%) (Auto) 8 % (0-3) Basophils (%) (Auto) 1 % (0-3) Neutrophils # (Auto) 5.4 x10^3/uL (1.8-7.7) Lymphocytes # (Auto) 1.4 x10^3/uL (1.0-4.8) Monocytes # (Auto) 0.7 x10^3/uL (0.0-1.1) Eosinophils # (Auto) 0.7 x10^3/uL (0.0-0.7) Basophils # (Auto) 0.1 x10^3/uL (0.0-0.2) Sodium Level 142 mmol/L (136-145) Potassium Level 4.2 mmol/L (3.5-5.1) Chloride Level 99 mmol/L (98-107) Carbon Dioxide Level 32 mmol/L (21-32) Anion Gap 11 (6-14) Blood Urea Nitrogen 36 mg/dL (8-26) Creatinine 5.3 mg/dL (0.7-1.3) Estimated GFR (Cockcroft-Gault) 12.8 Glucose Level 128 mg/dL (70-99) Calcium Level 9.1 mg/dL (8.5-10.1) Glucose (Fingerstick) 92 mg/dL (70-99) Micro Micro Microbiology 06/22/19 Urine Culture - Final, Complete 06/22/19 Urine Culture Result 1 (TEREZA) - Final, Complete 06/22/19 Blood Culture - Preliminary, Resulted NO GROWTH AFTER 3 DAYS Review of Systems Constitutional: yes: other (CONFUSED) Physical Exam General Appearance: no apparent distress Skin: warm Respiratory: bilateral CTA Heart: S1S2 Abdomen: soft, bowel sounds present Genitourinary: bladder flat Extremities: pulses present Neurology: alert, follow commands, other (oriented to self) Assessment Assessment IMP UTI ? INFECTED BKA STUMP ANEMIA DM II HTN ESRD MET ENCEPHALOPATHY DYSPHAGIA PLAN CONT ANTIBIOTICS WOUND CARE HD TODAY UF TO DW CBI UROLOGY FOLLOWING CONT TF FOR NOW D/W NANCY EMMANUEL MD Jun 26, 2019 09:55
--- NOTE | 2019-06-26 10:30 | PDOC ---
PROGRESS NOTES Subjective Subjective feels okay. dobhoff placed and tolerates tube feeding. speaks with eyes closed. lab reviewed. Objective Objective Vital Signs Date Time Temp Pulse Resp B/P (MAP) Pulse Ox O2 Delivery O2 Flow Rate FiO2 06/26/19 08:06 63 103/44 06/26/19 07:00 98.4 18 100 Room Air 98.4 Intake and Output 06/26/19 06:59 Intake Total 1800 ml Output Total 09241 ml Balance -94396 ml IV Total 1140 ml Tube Feeding 660 ml Output Urine Total 19388 ml Physical Exam Abdomen: Soft Heart: Regular rate, Normal S1, Normal S2 Extremities: No edema, Other (biilateral BKA) General: Alert HEENT: Atraumatic Lungs: Clear to auscultation Neuro: Normal speech Psych/Mental Status: Mood NL Skin: No rashes Assessment Assessment Problems metabolic encephalopathy. 2. Pyuria, consistent with urinary tract infection. pus in urine 3. Bilateral below-knee amputation. 4. left below-knee amputation stump wound infection 5. Diabetes mellitus type 2. 6. Peripheral arterial disease. 7. End-stage renal disease, on hemodialysis. m-w-f 8. paroxysmal atrial fibrillation. in nsr. not a coumadin candidate. recent hx of retroperitoneal bleed on anticoagulants and fall risk. 9. Severe protein-calorie malnutrition. 10. Anemia of chronic disease. NSTEMI oropharyngeal dysphagia Medical Problems: (1) Altered mental status Status: Acute (2) Anemia in chronic illness Status: Chronic (3) CAD (coronary artery disease) Status: Chronic (4) Chronic a-fib Status: Chronic (5) DM2 (diabetes mellitus, type 2) Status: Chronic (6) ESRD (end stage renal disease) Status: Acute (7) HTN (hypertension) Status: Chronic (8) Metabolic encephalopathy Status: Acute (9) NSTEMI (non-ST elevated myocardial infarction) Status: Acute (10) Paroxysmal A-fib Status: Acute (11) Peripheral artery disease Status: Chronic (12) Severe protein-calorie malnutrition Status: Chronic (13) SSS (sick sinus syndrome) Status: Chronic (14) UTI (urinary tract infection) Status: Acute Plan Plan of Care MRI brain today hemodialysis today continue dobhoff tube feeding continue iv vancomycin and zyvox and micafungin wound care Comment Review of Relevant I have reviewed the following items soumya (where applicable) has been applied. Labs Laboratory Tests Test 06/24/19 11:28 06/24/19 13:00 06/24/19 23:56 06/25/19 03:06 Glucose (Fingerstick) 93 mg/dL (70-99) 67 mg/dL (70-99) 105 mg/dL (70-99) White Blood Count 8.8 x10^3/uL (4.0-11.0) Red Blood Count 3.42 x10^6/uL (4.30-5.70) Hemoglobin 10.0 g/dL (13.0-17.5) Hematocrit 30.0 % (39.0-53.0) Mean Corpuscular Volume 88 fL (79-100) Mean Corpuscular Hemoglobin 29 pg (25-35) Mean Corpuscular Hemoglobin Concent 33 g/dL (31-37) Red Cell Distribution Width 18.4 % (11.5-14.5) Platelet Count 392 x10^3/uL (140-400) Neutrophils (%) (Auto) 63 % (31-73) Lymphocytes (%) (Auto) 18 % (24-48) Monocytes (%) (Auto) 10 % (0-9) Eosinophils (%) (Auto) 8 % (0-3) Basophils (%) (Auto) 1 % (0-3) Neutrophils # (Auto) 5.5 x10^3/uL (1.8-7.7) Lymphocytes # (Auto) 1.5 x10^3/uL (1.0-4.8) Monocytes # (Auto) 0.9 x10^3/uL (0.0-1.1) Eosinophils # (Auto) 0.7 x10^3/uL (0.0-0.7) Basophils # (Auto) 0.1 x10^3/uL (0.0-0.2) Prothrombin Time 20.4 SEC (11.7-14.0) Prothromb Time International Ratio 1.8 (0.8-1.1) Sodium Level 144 mmol/L (136-145) Potassium Level 4.6 mmol/L (3.5-5.1) Chloride Level 99 mmol/L (98-107) Carbon Dioxide Level 29 mmol/L (21-32) Anion Gap 16 (6-14) Blood Urea Nitrogen 56 mg/dL (8-26) Creatinine 6.7 mg/dL (0.7-1.3) Estimated GFR (Cockcroft-Gault) 9.7 Glucose Level 86 mg/dL (70-99) Calcium Level 9.2 mg/dL (8.5-10.1) Random Vancomycin Level 16.0 mcg/mL Test 06/25/19 07:42 06/25/19 09:46 06/25/19 12:03 06/25/19 17:38 Glucose (Fingerstick) 80 mg/dL (70-99) 78 mg/dL (70-99) 129 mg/dL (70-99) 94 mg/dL (70-99) Test 06/25/19 21:25 06/26/19 01:48 06/26/19 03:30 06/26/19 06:16 Glucose (Fingerstick) 101 mg/dL (70-99) 159 mg/dL (70-99) 92 mg/dL (70-99) White Blood Count 8.2 x10^3/uL (4.0-11.0) Red Blood Count 3.73 x10^6/uL (4.30-5.70) Hemoglobin 10.7 g/dL (13.0-17.5) Hematocrit 33.0 % (39.0-53.0) Mean Corpuscular Volume 89 fL (79-100) Mean Corpuscular Hemoglobin 29 pg (25-35) Mean Corpuscular Hemoglobin Concent 32 g/dL (31-37) Red Cell Distribution Width 18.4 % (11.5-14.5) Platelet Count 408 x10^3/uL (140-400) Neutrophils (%) (Auto) 65 % (31-73) Lymphocytes (%) (Auto) 17 % (24-48) Monocytes (%) (Auto) 9 % (0-9) Eosinophils (%) (Auto) 8 % (0-3) Basophils (%) (Auto) 1 % (0-3) Neutrophils # (Auto) 5.4 x10^3/uL (1.8-7.7) Lymphocytes # (Auto) 1.4 x10^3/uL (1.0-4.8) Monocytes # (Auto) 0.7 x10^3/uL (0.0-1.1) Eosinophils # (Auto) 0.7 x10^3/uL (0.0-0.7) Basophils # (Auto) 0.1 x10^3/uL (0.0-0.2) Sodium Level 142 mmol/L (136-145) Potassium Level 4.2 mmol/L (3.5-5.1) Chloride Level 99 mmol/L (98-107) Carbon Dioxide Level 32 mmol/L (21-32) Anion Gap 11 (6-14) Blood Urea Nitrogen 36 mg/dL (8-26) Creatinine 5.3 mg/dL (0.7-1.3) Estimated GFR (Cockcroft-Gault) 12.8 Glucose Level 128 mg/dL (70-99) Calcium Level 9.1 mg/dL (8.5-10.1) Laboratory Tests Test 06/25/19 12:03 06/25/19 17:38 06/25/19 21:25 06/26/19 01:48 Glucose (Fingerstick) 129 mg/dL (70-99) 94 mg/dL (70-99) 101 mg/dL (70-99) 159 mg/dL (70-99) Test 06/26/19 03:30 06/26/19 06:16 White Blood Count 8.2 x10^3/uL (4.0-11.0) Red Blood Count 3.73 x10^6/uL (4.30-5.70) Hemoglobin 10.7 g/dL (13.0-17.5) Hematocrit 33.0 % (39.0-53.0) Mean Corpuscular Volume 89 fL (79-100) Mean Corpuscular Hemoglobin 29 pg (25-35) Mean Corpuscular Hemoglobin Concent 32 g/dL (31-37) Red Cell Distribution Width 18.4 % (11.5-14.5) Platelet Count 408 x10^3/uL (140-400) Neutrophils (%) (Auto) 65 % (31-73) Lymphocytes (%) (Auto) 17 % (24-48) Monocytes (%) (Auto) 9 % (0-9) Eosinophils (%) (Auto) 8 % (0-3) Basophils (%) (Auto) 1 % (0-3) Neutrophils # (Auto) 5.4 x10^3/uL (1.8-7.7) Lymphocytes # (Auto) 1.4 x10^3/uL (1.0-4.8) Monocytes # (Auto) 0.7 x10^3/uL (0.0-1.1) Eosinophils # (Auto) 0.7 x10^3/uL (0.0-0.7) Basophils # (Auto) 0.1 x10^3/uL (0.0-0.2) Sodium Level 142 mmol/L (136-145) Potassium Level 4.2 mmol/L (3.5-5.1) Chloride Level 99 mmol/L (98-107) Carbon Dioxide Level 32 mmol/L (21-32) Anion Gap 11 (6-14) Blood Urea Nitrogen 36 mg/dL (8-26) Creatinine 5.3 mg/dL (0.7-1.3) Estimated GFR (Cockcroft-Gault) 12.8 Glucose Level 128 mg/dL (70-99) Calcium Level 9.1 mg/dL (8.5-10.1) Glucose (Fingerstick) 92 mg/dL (70-99) Microbiology 06/22/19 Urine Culture - Final, Complete 06/22/19 Urine Culture Result 1 (TEREZA) - Final, Complete 06/22/19 Blood Culture - Preliminary, Resulted NO GROWTH AFTER 3 DAYS Medications Current Medications Vancomycin HCl 250 ml @ 250 mls/hr 1X ONCE IV ; Start 06/22/19 at 10:45; Stop 06/22/19 at 11:44; Status UNV Piperacillin Sod/ Tazobactam Sod 2.25 gm/Sodium Chloride 50 ml @ 100 mls/hr 1X ONCE IV Last administered on 06/22/19at 11:55; Start 06/22/19 at 10:45; Stop 06/22/19 at 11:14; Status DC Sodium Chloride 1,000 ml @ 100 mls/hr Q10H IV Last administered on 06/22/19at 11:55; Start 06/22/19 at 10:38; Stop 06/22/19 at 20:37; Status DC Vancomycin HCl 2 gm/Sodium Chloride 500 ml @ 250 mls/hr 1X ONCE IV Last administered on 06/22/19at 12:32; Start 06/22/19 at 11:30; Stop 06/22/19 at 13:29; Status DC Info (PHARMACY MONITORING -- do not chart) 1 each PRN DAILY PRN MC SEE COMMENTS; Start 06/22/19 at 16:30; Stop 06/24/19 at 11:38; Status DC Info (PHARMACY MONITORING -- do not chart) 1 each PRN DAILY PRN MC SEE COMMENTS; Start 06/22/19 at 16:30; Status UNV Sodium Chloride 1,000 ml @ 40 mls/hr Q24H IV Last administered on 06/24/19at 18:31; Start 06/22/19 at 17:30; Stop 06/25/19 at 19:44; Status DC Vancomycin HCl (Vanco Per Pharmacy) 1 each PRN DAILY PRN MC SEE COMMENTS Last administered on 06/25/19at 12:00; Start 06/22/19 at 17:30 Piperacillin Sod/ Tazobactam Sod (Zosyn Per Pharmacy) 1 each PRN DAILY PRN MC SEE COMMENTS; Start 06/22/19 at 17:30 Acetaminophen (Tylenol) 650 mg PRN Q6HRS PRN PO MILD PAIN / TEMP; Start 06/22/19 at 17:30; Stop 06/25/19 at 18:15; Status DC Ondansetron HCl (Zofran) 4 mg PRN Q6HRS PRN IV NAUSEA/VOMITING; Start 06/22/19 at 17:30 Clopidogrel Bisulfate (Plavix) 75 mg DAILYWBKFT PO Last administered on 06/26/19at 09:21; Start 06/23/19 at 08:00 Vitamin B Complex/ Vitamin C (Rosalie-Judah) 1 tab DAILY PO Last administered on 06/26/19at 09:21; Start 06/23/19 at 09:00 Allopurinol (Zyloprim) 100 mg DAILY PO ; Start 06/23/19 at 09:00; Stop 06/25/19 at 18:17; Status DC Atorvastatin Calcium (Lipitor) 40 mg QHS PO Last administered on 06/22/19at 21:37; Start 06/22/19 at 21:00; Stop 06/25/19 at 12:19; Status DC Pantoprazole Sodium (Protonix) 40 mg DAILYAC PO Last administered on 06/26/19at 09:21; Start 06/23/19 at 07:30 Cyanocobalamin (Vitamin B-12) 1,000 mcg DAILY PO Last administered on 06/26/19at 09:21; Start 06/23/19 at 09:00 Piperacillin Sod/ Tazobactam Sod 2.25 gm/Sodium Chloride 50 ml @ 100 mls/hr Q8HRS IV Last administered on 06/26/19at 08:02; Start 06/22/19 at 21:00 Heparin Sodium (Porcine) (Heparin Sodium) 5,000 unit BID SQ Last administered on 06/22/19at 21:37; Start 06/22/19 at 21:00; Stop 06/23/19 at 08:23; Status DC Insulin Human Lispro (HumaLOG) 0-6 UNITS BG 400-49... TIDWMEALS SQ ; Start 06/23/19 at 08:00 Vancomycin HCl (Vancomycin Random Level) 1 each 1X ONCE MC Last administered on 06/24/19at 06:37; Start 06/24/19 at 06:00; Stop 06/24/19 at 06:01; Status DC Heparin Sodium/ Dextrose 500 ml @ 19.3 mls/hr CONT PRN IV SEE I/O RECORD; Start 06/23/19 at 08:30; Stop 06/23/19 at 14:53; Status DC Heparin Sodium (Porcine) (Heparin Sodium) 2,000 unit PRN Q6HRS PRN IV FOR UFH LEVEL LESS THAN 0.2; Start 06/23/19 at 08:30; Stop 06/23/19 at 14:53; Status DC Aspirin (Ecotrin) 325 mg 1X ONCE PO ; Start 06/23/19 at 10:30; Stop 06/23/19 at 10:31; Status DC Aspirin (Ecotrin) 81 mg DAILYWBKFT PO ; Start 06/24/19 at 08:00; Stop 06/25/19 at 18:16; Status DC Ondansetron HCl (Zofran) 4 mg PRN Q6HRS PRN IV NAUSEA/VOMITING; Start 06/24/19 at 07:00; Stop 06/25/19 at 06:59; Status DC Morphine Sulfate (Morphine Sulfate) 1 mg PRN Q10MIN PRN IV SEVERE PAIN 7-10; Start 06/24/19 at 07:00; Stop 06/24/19 at 10:06; Status DC Ringer's Solution 1,000 ml @ 30 mls/hr Q24H IV ; Start 06/24/19 at 07:00; Stop 06/24/19 at 18:59; Status DC Lidocaine HCl (Xylocaine-Mpf 1% 2ml Vial) 2 ml PRN 1X PRN ID PRIOR TO IV START; Start 06/24/19 at 07:00; Stop 06/25/19 at 06:59; Status DC Hydromorphone HCl (Dilaudid) 0.5 mg PRN Q10MIN PRN IV SEV PAIN, Second choice; Start 06/24/19 at 07:00; Stop 06/24/19 at 10:06; Status DC Info (Anti-Coagulation Monitoring By Pharmacy) 1 each PRN DAILY PRN MC SEE COMMENTS Last administered on 06/25/19at 16:28; Start 06/23/19 at 14:30 Enoxaparin Sodium (Lovenox Per Pharmacy Treatment Dosing) 1 each 1X PRN MC SEE COMMENTS; Start 06/23/19 at 14:45; Stop 06/23/19 at 21:00; Status DC Enoxaparin Sodium (Lovenox 80mg Syringe) 80 mg 1X ONCE SQ Last administered on 06/23/19at 15:16; Start 06/23/19 at 15:30; Stop 06/23/19 at 15:31; Status DC Heparin Sodium (Porcine) (Heparin Sodium) 5,000 unit Q12HR SQ Last administered on 06/26/19at 09:52; Start 06/24/19 at 11:00 Acetaminophen (Tylenol Supp) 650 mg PRN Q6HRS PRN AL MILD PAIN / TEMP Last administered on 06/24/19at 23:03; Start 06/24/19 at 10:30 Tramadol HCl (Ultram) 25 mg PRN Q6HRS PRN PO PAIN MODERATE PAIN; Start 06/24/19 at 10:30 Ketorolac Tromethamine (Toradol 15mg Vial) 15 mg PRN Q6HRS PRN IV PAIN Last administered on 06/25/19at 15:02; Start 06/24/19 at 10:30; Stop 06/29/19 at 10:29 Sodium Chloride 1,000 ml @ 1,000 mls/hr Q1H PRN IV hypotension; Start 06/24/19 at 11:27; Stop 06/24/19 at 17:26; Status DC Sodium Chloride 1,000 ml @ 400 mls/hr Q2H30M PRN IV PATENCY; Start 06/24/19 at 11:27; Stop 06/24/19 at 23:26; Status DC Info (PHARMACY MONITORING -- do not chart) 1 each PRN DAILY PRN MC SEE COMMENTS; Start 06/24/19 at 11:30 Info (PHARMACY MONITORING -- do not chart) 1 each PRN DAILY PRN MC SEE COMMENTS; Start 06/24/19 at 11:30; Status UNV Vancomycin HCl 500 mg/Sodium Chloride 100 ml @ 100 mls/hr QMWF IV Last administered on 06/24/19at 16:48; Start 06/24/19 at 16:00 Dextrose (Dextrose 50%-Water Syringe) 12.5 gm PRN Q15MIN PRN IV SEE COMMENTS Last administered on 06/25/19at 01:41; Start 06/25/19 at 01:30 Dextrose 250 ml PRN Q15MIN PRN IV SEE COMMENTS; Start 06/25/19 at 01:30 Micafungin Sodium 100 mg/Dextrose 100 ml @ 100 mls/hr Q24H IV Last admini stered on 06/26/19at 09:52; Start 06/25/19 at 09:00 Metoprolol Tartrate (Lopressor Vial) 2.5 mg Q6HRS IVP Last administered on at 08:06; Start 06/25/19 at 18:00 Atorvastatin Calcium (Lipitor) 10 mg QHS PEG Last administered on 06/25/19at 22:23; Start 06/25/19 at 21:00 Ondansetron HCl (Zofran) 4 mg PRN Q6HRS PRN IV NAUSEA/VOMITING; Start 06/26/19 at 07:00; Stop 06/27/19 at 06:59 Morphine Sulfate (Morphine Sulfate) 1 mg PRN Q10MIN PRN IV SEVERE PAIN 7-10; Start 06/26/19 at 07:00; Stop 06/27/19 at 06:59 Ringer's Solution 1,000 ml @ 30 mls/hr Q24H IV ; Start 06/26/19 at 07:00; Stop 06/26/19 at 18:59 Lidocaine HCl (Xylocaine-Mpf 1% 2ml Vial) 2 ml PRN 1X PRN ID PRIOR TO IV START; Start 06/26/19 at 07:00; Stop 06/27/19 at 06:59 Hydromorphone HCl (Dilaudid) 0.5 mg PRN Q10MIN PRN IV SEV PAIN, Second choice; Start 06/26/19 at 07:00; Stop 06/27/19 at 06:59 Acetaminophen (Tylenol) 650 mg PRN Q6HRS PRN PEG MILD PAIN / TEMP Last administered on 06/25/19at 22:23; Start 06/25/19 at 18:15 Aspirin (Children'S Aspirin) 81 mg DAILYWBKFT PEG Last administered on 06/26/19at 09:21; Start 06/26/19 at 08:00 Allopurinol (Zyloprim) 100 mg DAILY PEG Last administered on 06/26/19at 09:21; Start 06/25/19 at 18:17 Quetiapine Fumarate (SEROquel) 12.5 mg PRN Q8HRS PRN PO PSYCHOTIC BEHAVIOR; Start 06/25/19 at 19:45 Vitamin A/Vitamin D (Vitamin A & D Ointment) 1 héctor PRN BID PRN TP SKIN PROTECTION; Start 06/26/19 at 06:00 Active Scripts Active [place] 5-325 Tablet (Acetaminophen/Hydrocodone Bitart) 1 Each Tablet 0.5 Tab PO Q4HRS Zyvox (Linezolid) 600 Mg Tablet 600 Mg PO BID 4 Days Amox Tr-K Clv 500-125 Mg Tab (Amoxicillin/Potassium Clav) 1 Each Tablet 1 Tab PO DAILY 4 Days Tramadol Hcl 50 Mg Tablet 50 Mg PO PRN Q6HRS PRN Ondansetron Odt (Ondansetron) 4 Mg Tab.rapdis 4 Mg PO Q6HRS PRN Humalog (Insulin Lispro) 100 Unit/1 Ml Insuln.pen 0 Units SQ TIDWMEALS 30 Days BG 150-199= 1 units 200-299= 2 units 300-399= 4 units 400-499= 6 units ac tid sliding scale Reported Omeprazole 20 Mg Tablet.dr 1 Tab PO DAILY Vitamin D3 (Cholecalciferol (Vitamin D3)) 1,000 Unit Tablet 1 Tab PO DAILY Vitamin B-12 (Cyanocobalamin (Vitamin B-12)) 1,000 Mcg Tablet 1 Tab PO DAILY Senna (Sennosides) 8.6 Mg Tablet 8.6 Mg PO PRN DAILY PRN 2 tabs Renvela (Sevelamer Carbonate) 800 Mg Tablet 800 Mg PO TIDWMEALS Renal Caps Softgel (Folic Acid/Vitamin B Comp W-C) 1 Mg Capsule 1 Mg PO DAILY Reglan (Metoclopramide Hcl) 10 Mg Tablet 5 Mg PO TID Probiotic (Lactobacillus Acidophilus) 1 Each Capsule 1 Each PO BID Milk Of Magnesia (Magnesium Hydroxide) 400 Mg/5 Ml Oral.susp 400 Mg PO PRN DAILY PRN Lipitor (Atorvastatin Calcium) 40 Mg Tablet 1 Tab PO QHS Humalog (Insulin Lispro) 100 Unit/1 Ml Insuln.pen 100 Unit SQ TIDBFRMEAL 150-199=1 unit 200-299=2 units 300-399=4 units 100-499=6 units Clopidogrel (Clopidogrel Bisulfate) 75 Mg Tablet 1 Tab PO DAILY Duoneb 0.5-3(2.5) Mg/3 Ml (Albuterol/Ipratropium) 3 Ml Ampul.neb 3 Ml NEB PRN Q4HRS PRN Lac-Hydrin Five (Ammonium Lactate) 226 Gm Lotion 226 Gm TP BID Allopurinol 100 Mg Tablet 1 Tab PO DAILY Tylenol (Acetaminophen) 325 Mg Tablet 1 Tab PO PRN Q4HRS Aspirin 81 Mg Tab.chew 81 Mg PO DAILY Vitals/I & O Vital Sign - Last 24 Hours 06/25/19 06/25/19 06/25/19 06/25/19 11:00 15:00 18:55 19:23 Temp 98.4 98.7 98.6 98.4 98.7 98.6 Pulse 69 70 72 59 Resp 14 15 16 B/P (MAP) 121/68 (85) 118/86 (97) 115/55 115/55 (75) Pulse Ox 100 98 99 O2 Delivery Room Air Room Air Room Air 06/25/19 06/26/19 06/26/19 06/26/19 22:35 03:00 04:34 07:00 Temp 97.9 97.9 98.4 97.9 97.9 98.4 Pulse 63 65 57 63 Resp 18 18 18 B/P (MAP) 116/59 (78) 112/59 (76) 103/44 (63) Pulse Ox 100 100 100 O2 Delivery Room Air Room Air Room Air 06/26/19 08:06 Pulse 63 B/P (MAP) 103/44 Intake and Output 06/25/19 06/25/19 06/26/19 14:59 22:59 06:59 Intake Total 370 ml 1430 ml Output Total 6925 ml 76093 ml 4800 ml Balance -6925 ml -50727 ml -3370 ml Nutrition Consultation Dietary Evaluation: Recommendations by RD: Increase Calorie Intake, Protein supplementation Comments: REC TF per following: Nepro@goal rate 40 ml/hr w/150 ml water flushes q6 hrs per REC Marcell BID via feeding tube, mix each packet w/4 oz water to dissolve, flush tube w/30 ml water before and after each packet REC MVI via feeding tube as able, for wound healing Expected Outcomes/Goals: TF intiation/infusion to meet >75% est needs Malnutrition Findings: Food and Nutrition Intake (Sev: <50% est energy req 5days Weight Status: Appropriate SAM OLMOS MD Jun 26, 2019 10:30
--- NOTE | 2019-06-26 10:59 | PDOC ---
SUBJECTIVE Subjective Asleep OBJECTIVE Objective d/w RN. CBI running clear overnight Physical Exam Asleep, NAD Unlabored breathing Abdomen nondistended CBI running medium flow, allan draining clear fluid Vital Signs Vital Signs Date Time Temp Pulse Resp B/P (MAP) Pulse Ox O2 Delivery O2 Flow Rate FiO2 06/26/19 08:06 63 103/44 06/26/19 07:00 98.4 63 18 103/44 (63) 100 Room Air 98.4 06/26/19 04:34 57 06/26/19 03:00 97.9 65 18 112/59 (76) 100 Room Air 97.9 06/25/19 22:35 97.9 63 18 116/59 (78) 100 Room Air 97.9 06/25/19 19:23 98.6 59 16 115/55 (75) 99 Room Air 98.6 06/25/19 18:55 72 115/55 06/25/19 15:00 98.7 70 15 118/86 (97) 98 Room Air 98.7 06/25/19 11:00 98.4 69 14 121/68 (85) 100 Room Air 98.4 I & O Intake and Output 06/26/19 06:59 Intake Total 1800 ml Output Total 45036 ml Balance -98207 ml IV Total 1140 ml Tube Feeding 660 ml Output Urine Total 21171 ml ASSESSMENT/PLAN Assessment/Plan Pyocystitis CBI clear overnight, trial d/c this AM for 3 hrs. Rechecked - low output d/t dialysis, clear light yellow urine in tubing and bag D/C CBI, call if changes to output VT at discharge COMMENT Lab Laboratory Tests Test 06/25/19 12:03 06/25/19 17:38 06/25/19 21:25 06/26/19 01:48 Glucose (Fingerstick) 129 mg/dL (70-99) 94 mg/dL (70-99) 101 mg/dL (70-99) 159 mg/dL (70-99) Test 06/26/19 03:30 06/26/19 06:16 White Blood Count 8.2 x10^3/uL (4.0-11.0) Red Blood Count 3.73 x10^6/uL (4.30-5.70) Hemoglobin 10.7 g/dL (13.0-17.5) Hematocrit 33.0 % (39.0-53.0) Mean Corpuscular Volume 89 fL (79-100) Mean Corpuscular Hemoglobin 29 pg (25-35) Mean Corpuscular Hemoglobin Concent 32 g/dL (31-37) Red Cell Distribution Width 18.4 % (11.5-14.5) Platelet Count 408 x10^3/uL (140-400) Neutrophils (%) (Auto) 65 % (31-73) Lymphocytes (%) (Auto) 17 % (24-48) Monocytes (%) (Auto) 9 % (0-9) Eosinophils (%) (Auto) 8 % (0-3) Basophils (%) (Auto) 1 % (0-3) Neutrophils # (Auto) 5.4 x10^3/uL (1.8-7.7) Lymphocytes # (Auto) 1.4 x10^3/uL (1.0-4.8) Monocytes # (Auto) 0.7 x10^3/uL (0.0-1.1) Eosinophils # (Auto) 0.7 x10^3/uL (0.0-0.7) Basophils # (Auto) 0.1 x10^3/uL (0.0-0.2) Sodium Level 142 mmol/L (136-145) Potassium Level 4.2 mmol/L (3.5-5.1) Chloride Level 99 mmol/L (98-107) Carbon Dioxide Level 32 mmol/L (21-32) Anion Gap 11 (6-14) Blood Urea Nitrogen 36 mg/dL (8-26) Creatinine 5.3 mg/dL (0.7-1.3) Estimated GFR (Cockcroft-Gault) 12.8 Glucose Level 128 mg/dL (70-99) Calcium Level 9.1 mg/dL (8.5-10.1) Glucose (Fingerstick) 92 mg/dL (70-99) Nutrition Consultation Dietary Evaluation: Recommendations by RD: Increase Calorie Intake, Protein supplementation Comments: REC TF per following: Nepro@goal rate 40 ml/hr w/150 ml water flushes q6 hrs per REC Marcell BID via feeding tube, mix each packet w/4 oz water to dissolve, flush tube w/30 ml water before and after each packet REC MVI via feeding tube as able, for wound healing Expected Outcomes/Goals: TF intiation/infusion to meet >75% est needs Malnutrition Findings: Food and Nutrition Intake (Sev: <50% est energy req 5days Weight Status: Appropriate OC SPARROW Jun 26, 2019 10:59
[2019-06-26 11:00] VITALS: BP 126/68
[2019-06-26] MEDS: VITS A & D/LANOLIN TOPICAL OINTMENT 42GM TUBE. TP PRN (11:30)
--- NOTE | 2019-06-26 12:31 | RAD ---
MRI Brain without contrast History: Dysphagia, altered mental status Technique: Multiplanar, multisequential noncontrast MR imaging was performed of the brain. Comparison: April 28, 2019 Findings: There is motion degradation. There is no evidence of recent infarct or intracranial mass effect. There is again moderate to severe T2 and FLAIR hyperintense signal abnormality of the supratentorial parenchyma bilaterally not convincingly changed in extent. There is again fairly severe supratentorial atrophy. Ventricular size is within normal limits. There has been lens surgery bilaterally. There is again opacification of the right sphenoid sinus. There is again some asymmetric signal protruding into the posterior right nasal cavity. There is preservation of the major arterial flow voids at the skull base. 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 Mastoid air cells are overall aerated. Cerebellar tonsils are normal in location. There is preservation of marrow signal clivus. There is no new abnormality of pineal gland or pituitary gland. Impression: 1. There is no evidence of recent infarct or new intracranial mass effect. There is again moderate to severe T2 and FLAIR hyperintense abnormality of the supratentorial parenchyma probably due to chronic microvascular ischemic disease in a patient this age. There is fairly severe supratentorial atrophy. 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 Line 2. There is again asymmetric signal protruding into the posterior right nasal cavity better evaluated by direct inspection. There is opacification of the right sphenoid sinus, likely chronic. Electronically signed by: Curt Dunne MD (06/26/2019 12:28 PM) [email or web address]
[2019-06-26] MEDS ORDERED: IV NORMAL SALINE 1000ML BAG 1,000 ML IV PRN (12:41)
[2019-06-26] MEDS ORDERED: DIALYSIS PATIENT. MC PRN ×2 (12:45)
[2019-06-26] MEDS: VANCOMYCIN PER PHARMACY MC PRN (14:23)
--- NOTE | 2019-06-26 15:07 | PDOC ---
PROGRESS NOTES Subjective Subjective Patient seen and examined The patient is feeling better today. Objective Objective Vital Signs Date Time Temp Pulse Resp B/P (MAP) Pulse Ox O2 Delivery O2 Flow Rate FiO2 06/26/19 11:00 98.2 65 26 126/68 (87) 100 Room Air 98.2 Intake and Output 06/26/19 07:00 Intake Total 1800 ml Output Total 74174 ml Balance -96950 ml IV Total 1140 ml Tube Feeding 660 ml Output Urine Total 04813 ml Physical Exam Abdomen: Normal bowel sounds Heart: Regular rate General: mild distress Lungs: Other (mildly decreased breath sounds) Assessment Assessment Problems Medical Problems: (1) Altered mental status Status: Acute (2) Anemia in chronic illness Status: Chronic (3) CAD (coronary artery disease) Status: Chronic (4) Chronic a-fib Status: Chronic (5) DM2 (diabetes mellitus, type 2) Status: Chronic (6) ESRD (end stage renal disease) Status: Acute (7) HTN (hypertension) Status: Chronic (8) Metabolic encephalopathy Status: Acute (9) NSTEMI (non-ST elevated myocardial infarction) Status: Acute (10) Paroxysmal A-fib Status: Acute (11) Peripheral artery disease Status: Chronic (12) Severe protein-calorie malnutrition Status: Chronic (13) SSS (sick sinus syndrome) Status: Chronic (14) UTI (urinary tract infection) Status: Acute Metabolic encephalopathy. Improving. Non-ST elevated myocardial infarction. No chest pain. Ejection fraction of 45- 50%. Continuing medical treatment. Compensated heart failure. Paroxysmal atrial fibrillation. Presently in controlled atrial tachycardia. Hypertension. Controlled on present medications. Coronary artery disease. Previous stenting. No chest pain. Mildly decreased LV systolic function. Future outpatient stress testing. Peripheral arterial disease with bilateral BKA's. History of CVA. End-stage renal disease on hemodialysis. Sick sinus syndrome treated with a Ovo Cosmicos pacemaker. Normal functioning of the device. Comment Review of Relevant I have reviewed the following items soumya (where applicable) has been applied. Labs Laboratory Tests Test 06/24/19 23:56 06/25/19 03:06 06/25/19 07:42 06/25/19 09:46 Glucose (Fingerstick) 67 mg/dL (70-99) 105 mg/dL (70-99) 80 mg/dL (70-99) 78 mg/dL (70-99) Test 06/25/19 12:03 06/25/19 17:38 06/25/19 21:25 06/26/19 01:48 Glucose (Fingerstick) 129 mg/dL (70-99) 94 mg/dL (70-99) 101 mg/dL (70-99) 159 mg/dL (70-99) Test 06/26/19 03:30 06/26/19 06:16 06/26/19 12:42 White Blood Count 8.2 x10^3/uL (4.0-11.0) Red Blood Count 3.73 x10^6/uL (4.30-5.70) Hemoglobin 10.7 g/dL (13.0-17.5) Hematocrit 33.0 % (39.0-53.0) Mean Corpuscular Volume 89 fL (79-100) Mean Corpuscular Hemoglobin 29 pg (25-35) Mean Corpuscular Hemoglobin Concent 32 g/dL (31-37) Red Cell Distribution Width 18.4 % (11.5-14.5) Platelet Count 408 x10^3/uL (140-400) Neutrophils (%) (Auto) 65 % (31-73) Lymphocytes (%) (Auto) 17 % (24-48) Monocytes (%) (Auto) 9 % (0-9) Eosinophils (%) (Auto) 8 % (0-3) Basophils (%) (Auto) 1 % (0-3) Neutrophils # (Auto) 5.4 x10^3/uL (1.8-7.7) Lymphocytes # (Auto) 1.4 x10^3/uL (1.0-4.8) Monocytes # (Auto) 0.7 x10^3/uL (0.0-1.1) Eosinophils # (Auto) 0.7 x10^3/uL (0.0-0.7) Basophils # (Auto) 0.1 x10^3/uL (0.0-0.2) Sodium Level 142 mmol/L (136-145) Potassium Level 4.2 mmol/L (3.5-5.1) Chloride Level 99 mmol/L (98-107) Carbon Dioxide Level 32 mmol/L (21-32) Anion Gap 11 (6-14) Blood Urea Nitrogen 36 mg/dL (8-26) Creatinine 5.3 mg/dL (0.7-1.3) Estimated GFR (Cockcroft-Gault) 12.8 Glucose Level 128 mg/dL (70-99) Calcium Level 9.1 mg/dL (8.5-10.1) Glucose (Fingerstick) 92 mg/dL (70-99) 86 mg/dL (70-99) Laboratory Tests Test 06/25/19 17:38 06/25/19 21:25 06/26/19 01:48 06/26/19 03:30 Glucose (Fingerstick) 94 mg/dL (70-99) 101 mg/dL (70-99) 159 mg/dL (70-99) White Blood Count 8.2 x10^3/uL (4.0-11.0) Red Blood Count 3.73 x10^6/uL (4.30-5.70) Hemoglobin 10.7 g/dL (13.0-17.5) Hematocrit 33.0 % (39.0-53.0) Mean Corpuscular Volume 89 fL (79-100) Mean Corpuscular Hemoglobin 29 pg (25-35) Mean Corpuscular Hemoglobin Concent 32 g/dL (31-37) Red Cell Distribution Width 18.4 % (11.5-14.5) Platelet Count 408 x10^3/uL (140-400) Neutrophils (%) (Auto) 65 % (31-73) Lymphocytes (%) (Auto) 17 % (24-48) Monocytes (%) (Auto) 9 % (0-9) Eosinophils (%) (Auto) 8 % (0-3) Basophils (%) (Auto) 1 % (0-3) Neutrophils # (Auto) 5.4 x10^3/uL (1.8-7.7) Lymphocytes # (Auto) 1.4 x10^3/uL (1.0-4.8) Monocytes # (Auto) 0.7 x10^3/uL (0.0-1.1) Eosinophils # (Auto) 0.7 x10^3/uL (0.0-0.7) Basophils # (Auto) 0.1 x10^3/uL (0.0-0.2) Sodium Level 142 mmol/L (136-145) Potassium Level 4.2 mmol/L (3.5-5.1) Chloride Level 99 mmol/L (98-107) Carbon Dioxide Level 32 mmol/L (21-32) Anion Gap 11 (6-14) Blood Urea Nitrogen 36 mg/dL (8-26) Creatinine 5.3 mg/dL (0.7-1.3) Estimated GFR (Cockcroft-Gault) 12.8 Glucose Level 128 mg/dL (70-99) Calcium Level 9.1 mg/dL (8.5-10.1) Test 06/26/19 06:16 06/26/19 12:42 Glucose (Fingerstick) 92 mg/dL (70-99) 86 mg/dL (70-99) Microbiology 06/22/19 Urine Culture - Final, Complete 06/22/19 Urine Culture Result 1 (TEREZA) - Final, Complete 06/22/19 Blood Culture - Preliminary, Resulted NO GROWTH AFTER 4 DAYS Medications Current Medications Vancomycin HCl 250 ml @ 250 mls/hr 1X ONCE IV ; Start 06/22/19 at 10:45; Stop 06/22/19 at 11:44; Status UNV Piperacillin Sod/ Tazobactam Sod 2.25 gm/Sodium Chloride 50 ml @ 100 mls/hr 1X ONCE IV Last administered on 06/22/19at 11:55; Start 06/22/19 at 10:45; Stop 06/22/19 at 11:14; Status DC Sodium Chloride 1,000 ml @ 100 mls/hr Q10H IV Last administered on 06/22/19at 11:55; Start 06/22/19 at 10:38; Stop 06/22/19 at 20:37; Status DC Vancomycin HCl 2 gm/Sodium Chloride 500 ml @ 250 mls/hr 1X ONCE IV Last administered on 06/22/19at 12:32; Start 06/22/19 at 11:30; Stop 06/22/19 at 13:29; Status DC Info (PHARMACY MONITORING -- do not chart) 1 each PRN DAILY PRN MC SEE COMMENTS; Start 06/22/19 at 16:30; Stop 06/24/19 at 11:38; Status DC Info (PHARMACY MONITORING -- do not chart) 1 each PRN DAILY PRN MC SEE COMMENTS; Start 06/22/19 at 16:30; Status UNV Sodium Chloride 1,000 ml @ 40 mls/hr Q24H IV Last administered on 06/24/19 18:31; Start 06/22/19 at 17:30; Stop 06/25/19 at 19:44; Status DC Vancomycin HCl (Vanco Per Pharmacy) 1 each PRN DAILY PRN MC SEE COMMENTS Last administered on 06/26/19at 14:23; Start 06/22/19 at 17:30 Piperacillin Sod/ Tazobactam Sod (Zosyn Per Pharmacy) 1 each PRN DAILY PRN MC SEE COMMENTS; Start 06/22/19 at 17:30 Acetaminophen (Tylenol) 650 mg PRN Q6HRS PRN PO MILD PAIN / TEMP; Start 06/22/19 at 17:30; Stop 06/25/19 at 18:15; Status DC Ondansetron HCl (Zofran) 4 mg PRN Q6HRS PRN IV NAUSEA/VOMITING; Start 06/22/19 at 17:30 Clopidogrel Bisulfate (Plavix) 75 mg DAILYWBKFT PO Last administered on at 09:21; Start 06/23/19 at 08:00 Vitamin B Complex/ Vitamin C (Carlos-Moses) 1 tab DAILY PO Last administered on 06/26/19 09:21; Start 06/23/19 at 09:00 Allopurinol (Zyloprim) 100 mg DAILY PO ; Start 06/23/19 at 09:00; Stop 06/25/19 at 18:17; Status DC Atorvastatin Calcium (Lipitor) 40 mg QHS PO Last administered on 06/22/19at 21:37; Start 06/22/19 at 21:00; Stop 06/25/19 at 12:19; Status DC Pantoprazole Sodium (Protonix) 40 mg DAILYAC PO Last administered on 06/26/19 09:21; Start 06/23/19 at 07:30 Cyanocobalamin (Vitamin B-12) 1,000 mcg DAILY PO Last administered on 06/26/19 09:21; Start 06/23/19 at 09:00 Piperacillin Sod/ Tazobactam Sod 2.25 gm/Sodium Chloride 50 ml @ 100 mls/hr Q8HRS IV Last administered on 06/26/19at 08:02; Start 06/22/19 at 21:00 Heparin Sodium (Porcine) (Heparin Sodium) 5,000 unit BID SQ Last administered on 06/22/19at 21:37; Start 06/22/19 at 21:00; Stop 06/23/19 at 08:23; Status DC Insulin Human Lispro (HumaLOG) 0-6 UNITS BG 400-49... TIDWMEALS SQ ; Start 06/23/19 at 08:00 Vancomycin HCl (Vancomycin Random Level) 1 each 1X ONCE MC Last administered on 06/24/19at 06:37; Start 06/24/19 at 06:00; Stop 06/24/19 at 06:01; Status DC Heparin Sodium/ Dextrose 500 ml @ 19.3 mls/hr CONT PRN IV SEE I/O RECORD; Start 06/23/19 at 08:30; Stop 06/23/19 at 14:53; Status DC Heparin Sodium (Porcine) (Heparin Sodium) 2,000 unit PRN Q6HRS PRN IV FOR UFH LEVEL LESS THAN 0.2; Start 06/23/19 at 08:30; Stop 06/23/19 at 14:53; Status DC Aspirin (Ecotrin) 325 mg 1X ONCE PO ; Start 06/23/19 at 10:30; Stop 06/23/19 at 10:31; Status DC Aspirin (Ecotrin) 81 mg DAILYWBKFT PO ; Start 06/24/19 at 08:00; Stop 06/25/19 at 18:16; Status DC Ondansetron HCl (Zofran) 4 mg PRN Q6HRS PRN IV NAUSEA/VOMITING; Start 06/24/19 at 07:00; Stop 06/25/19 at 06:59; Status DC Morphine Sulfate (Morphine Sulfate) 1 mg PRN Q10MIN PRN IV SEVERE PAIN 7-10; Start 06/24/19 at 07:00; Stop 06/24/19 at 10:06; Status DC Ringer's Solution 1,000 ml @ 30 mls/hr Q24H IV ; Start 06/24/19 at 07:00; Stop 06/24/19 at 18:59; Status DC Lidocaine HCl (Xylocaine-Mpf 1% 2ml Vial) 2 ml PRN 1X PRN ID PRIOR TO IV START; Start 06/24/19 at 07:00; Stop 06/25/19 at 06:59; Status DC Hydromorphone HCl (Dilaudid) 0.5 mg PRN Q10MIN PRN IV SEV PAIN, Second choice; Start 06/24/19 at 07:00; Stop 06/24/19 at 10:06; Status DC Info (Anti-Coagulation Monitoring By Pharmacy) 1 each PRN DAILY PRN MC SEE COMMENTS Last administered on 06/25/19at 16:28; Start 06/23/19 at 14:30 Enoxaparin Sodium (Lovenox Per Pharmacy Treatment Dosing) 1 each 1X PRN MC SEE COMMENTS; Start 06/23/19 at 14:45; Stop 06/23/19 at 21:00; Status DC Enoxaparin Sodium (Lovenox 80mg Syringe) 80 mg 1X ONCE SQ Last administered on 06/23/19at 15:16; Start 06/23/19 at 15:30; Stop 06/23/19 at 15:31; Status DC Heparin Sodium (Porcine) (Heparin Sodium) 5,000 unit Q12HR SQ Last administered on 06/26/19at 09:52; Start 06/24/19 at 11:00 Acetaminophen (Tylenol Supp) 650 mg PRN Q6HRS PRN ID MILD PAIN / TEMP Last administered on 06/24/19at 23:03; Start 06/24/19 at 10:30 Tramadol HCl (Ultram) 25 mg PRN Q6HRS PRN PO PAIN MODERATE PAIN; Start 06/24/19 at 10:30 Ketorolac Tromethamine (Toradol 15mg Vial) 15 mg PRN Q6HRS PRN IV PAIN Last administered on 06/25/19at 15:02; Start 06/24/19 at 10:30; Stop 06/29/19 at 10:29 Sodium Chloride 1,000 ml @ 1,000 mls/hr Q1H PRN IV hypotension; Start 06/24/19 at 11:27; Stop 06/24/19 at 17:26; Status DC Sodium Chloride 1,000 ml @ 400 mls/hr Q2H30M PRN IV PATENCY; Start 06/24/19 at 11:27; Stop 06/24/19 at 23:26; Status DC Info (PHARMACY MONITORING -- do not chart) 1 each PRN DAILY PRN MC SEE COMMENTS; Start 06/24/19 at 11:30 Info (PHARMACY MONITORING -- do not chart) 1 each PRN DAILY PRN MC SEE COMMENTS; Start 06/24/19 at 11:30; Status UNV Vancomycin HCl 500 mg/Sodium Chloride 100 ml @ 100 mls/hr QMWF IV Last administered on 06/24/19at 16:48; Start 06/24/19 at 16:00 Dextrose (Dextrose 50%-Water Syringe) 12.5 gm PRN Q15MIN PRN IV SEE COMMENTS L ast administered on 06/25/19at 01:41; Start 06/25/19 at 01:30 Dextrose 250 ml PRN Q15MIN PRN IV SEE COMMENTS; Start 06/25/19 at 01:30 Micafungin Sodium 100 mg/Dextrose 100 ml @ 100 mls/hr Q24H IV Last administered on 06/26/19at 09:52; Start 06/25/19 at 09:00 Metoprolol Tartrate (Lopressor Vial) 2.5 mg Q6HRS IVP Last administered on 06/26/19at 08:06; Start 06/25/19 at 18:00 Atorvastatin Calcium (Lipitor) 10 mg QHS PEG Last administered on 06/25/19at 22:23; Start 06/25/19 at 21:00 Ondansetron HCl (Zofran) 4 mg PRN Q6HRS PRN IV NAUSEA/VOMITING; Start 06/26/19 at 07:00; Stop 06/27/19 at 06:59 Morphine Sulfate (Morphine Sulfate) 1 mg PRN Q10MIN PRN IV SEVERE PAIN 7-10; Start 06/26/19 at 07:00; Stop 06/27/19 at 06:59 Ringer's Solution 1,000 ml @ 30 mls/hr Q24H IV ; Start 06/26/19 at 07:00; Stop 06/26/19 at 18:59 Lidocaine HCl (Xylocaine-Mpf 1% 2ml Vial) 2 ml PRN 1X PRN ID PRIOR TO IV START; Start 06/26/19 at 07:00; Stop 06/27/19 at 06:59 Hydromorphone HCl (Dilaudid) 0.5 mg PRN Q10MIN PRN IV SEV PAIN, Second choice; Start 06/26/19 at 07:00; Stop 06/27/19 at 06:59 Acetaminophen (Tylenol) 650 mg PRN Q6HRS PRN PEG MILD PAIN / TEMP Last a dministered on 06/25/19at 22:23; Start 06/25/19 at 18:15 Aspirin (Children'S Aspirin) 81 mg DAILYWBKFT PEG Last administered on 06/26/19at 09:21; Start 06/26/19 at 08:00 Allopurinol (Zyloprim) 100 mg DAILY PEG Last administered on 06/26/19at 09:21; Start 06/25/19 at 18:17 Quetiapine Fumarate (SEROquel) 12.5 mg PRN Q8HRS PRN PO PSYCHOTIC BEHAVIOR; Start 06/25/19 at 19:45 Vitamin A/Vitamin D (Vitamin A & D Ointment) 1 héctor PRN BID PRN TP SKIN PROTECTION Last administered on 06/26/19at 12:44; Start 06/26/19 at 06:00 Sodium Chloride 1,000 ml @ 1,000 mls/hr Q1H PRN IV hypotension; Start 06/26/19 at 12:41; Stop 06/26/19 at 18:40 Info (PHARMACY MONITORING -- do not chart) 1 each PRN DAILY PRN MC SEE COMMENTS; Start 06/26/19 at 12:45; Status UNV Info (PHARMACY MONITORING -- do not chart) 1 each PRN DAILY PRN MC SEE COMMENTS; Start 06/26/19 at 12:45 Active Scripts Active [place] 5-325 Tablet (Acetaminophen/Hydrocodone Bitart) 1 Each Tablet 0.5 Tab PO Q4HRS Zyvox (Linezolid) 600 Mg Tablet 600 Mg PO BID 4 Days Amox Tr-K Clv 500-125 Mg Tab (Amoxicillin/Potassium Clav) 1 Each Tablet 1 Tab PO DAILY 4 Days Tramadol Hcl 50 Mg Tablet 50 Mg PO PRN Q6HRS PRN Ondansetron Odt (Ondansetron) 4 Mg Tab.rapdis 4 Mg PO Q6HRS PRN Humalog (Insulin Lispro) 100 Unit/1 Ml Insuln.pen 0 Units SQ TIDWMEALS 30 Days BG 150-199= 1 units 200-299= 2 units 300-399= 4 units 400-499= 6 units ac tid sliding scale Reported Omeprazole 20 Mg Tablet.dr 1 Tab PO DAILY Vitamin D3 (Cholecalciferol (Vitamin D3)) 1,000 Unit Tablet 1 Tab PO DAILY Vitamin B-12 (Cyanocobalamin (Vitamin B-12)) 1,000 Mcg Tablet 1 Tab PO DAILY Senna (Sennosides) 8.6 Mg Tablet 8.6 Mg PO PRN DAILY PRN 2 tabs Renvela (Sevelamer Carbonate) 800 Mg Tablet 800 Mg PO TIDWMEALS Renal Caps Softgel (Folic Acid/Vitamin B Comp W-C) 1 Mg Capsule 1 Mg PO DAILY Reglan (Metoclopramide Hcl) 10 Mg Tablet 5 Mg PO TID Probiotic (Lactobacillus Acidophilus) 1 Each Capsule 1 Each PO BID Milk Of Magnesia (Magnesium Hydroxide) 400 Mg/5 Ml Oral.susp 400 Mg PO PRN DAILY PRN Lipitor (Atorvastatin Calcium) 40 Mg Tablet 1 Tab PO QHS Humalog (Insulin Lispro) 100 Unit/1 Ml Insuln.pen 100 Unit SQ TIDBFRMEAL 150-199=1 unit 200-299=2 units 300-399=4 units 100-499=6 units Clopidogrel (Clopidogrel Bisulfate) 75 Mg Tablet 1 Tab PO DAILY Duoneb 0.5-3(2.5) Mg/3 Ml (Albuterol/Ipratropium) 3 Ml Ampul.neb 3 Ml NEB PRN Q4HRS PRN Lac-Hydrin Five (Ammonium Lactate) 226 Gm Lotion 226 Gm TP BID Allopurinol 100 Mg Tablet 1 Tab PO DAILY Tylenol (Acetaminophen) 325 Mg Tablet 1 Tab PO PRN Q4HRS Aspirin 81 Mg Tab.chew 81 Mg PO DAILY Vitals/I & O Vital Sign - Last 24 Hours 06/25/19 06/25/19 06/25/19 06/26/19 18:55 19:23 22:35 03:00 Temp 98.6 97.9 97.9 98.6 97.9 97.9 Pulse 72 59 63 65 Resp 16 18 18 B/P (MAP) 115/55 115/55 (75) 116/59 (78) 112/59 (76) Pulse Ox 99 100 100 O2 Delivery Room Air Room Air Room Air 06/26/19 06/26/19 06/26/19 06/26/19 04:34 07:00 08:06 11:00 Temp 98.4 98.2 98.4 98.2 Pulse 57 63 63 65 Resp 18 26 B/P (MAP) 103/44 (63) 103/44 126/68 (87) Pulse Ox 100 100 O2 Delivery Room Air Room Air Intake and Output 06/25/19 06/25/19 06/26/19 15:00 23:00 07:00 Intake Total 370 ml 1430 ml Output Total 9275 ml 56310 ml 4800 ml Balance -9275 ml -24230 ml -3370 ml Nutrition Consultation Dietary Evaluation: Recommendations by RD: Increase Calorie Intake, Protein supplementation Comments: REC continue increasing TF rate 10 ml q8 hrs as tolerated to goal of Nepro@goal rate 40 ml/hr w/150 ml water flushes q6 hrs per MD REC Marcell BID via feeding tube, mix each packet w/4 oz water to dissolve, flush tube w/30 ml water before and after each packet - dietary aware Continue w/carlos-moses for additional vitamin needs for skin healing Expected Outcomes/Goals: TF intiation/infusion to meet >75% est needs - not met, goal ongoing Malnutrition Findings: Food and Nutrition Intake (Sev: <50% est energy req 5days Weight Status: Appropriate AL GRAY MD Jun 26, 2019 15:07
[2019-06-26] MEDS: VANCOMYCIN 500 MG in IV NORMAL SALINE 100ML 100 ML IV SCH (18:09)
[2019-06-26 19:00] VITALS: BP 88/49
[2019-06-26] MEDS: ATORVASTATIN CALCIUM 10 MG TABLET. PEG SCH (20:49)
[2019-06-26 23:42] VITALS: BP 139/85
[2019-06-27] MEDS: METOPROLOL TARTRATE 5 MG/5 ML VIAL. IVP SCH ×4 (00:08→17:59)
[2019-06-27 03:00] VITALS: BP 107/42
[2019-06-27] MEDS: PIPERACILLIN/TAZOBACTAM 2.25 GM in IV NORMAL SALINE 50ML 50 ML IV SCH ×3 (05:38→20:39)
[2019-06-27 07:00] VITALS: BP 125/64
[2019-06-27] MEDS: INSULIN LISPRO 300 UNITS/3 ML VIAL. SQ SCH ×4 (08:00→17:00)
[2019-06-27] MEDS: FOLIC/VIT B COMP W-C (RENAL) TABLET. PO SCH (08:55)
[2019-06-27] MEDS: CYANOCOBALAMIN (VITAMIN B-12) 1,000 MCG TABLET. PO SCH (08:55)
[2019-06-27] MEDS: ASPIRIN CHEWABLE 81 MG TABLET. PEG SCH (08:56)
[2019-06-27] MEDS: CLOPIDOGREL BISULFATE 75 MG TABLET PO SCH (08:56)
[2019-06-27] MEDS: KETOROLAC 15 MG/ML VIAL. IV PRN (08:56)
[2019-06-27] MEDS: QUEtiapine 25 MG TABLET. PO PRN ×2 (08:56→21:38)
[2019-06-27] MEDS: PANTOPRAZOLE 40 MG TABLET.DR. PO SCH (08:56)
[2019-06-27] MEDS: ALLOPURINOL 100 MG TABLET. PEG SCH (08:56)
[2019-06-27] MEDS: MICAFUNGIN 100 MG in IV DEXTROSE 5% 100ML 100 ML IV SCH (08:57)
[2019-06-27] MEDS: HEPARIN for SUB-Q USE 5,000 UNIT/ML VIAL. SQ SCH ×2 (09:04→22:00)
[2019-06-27] MEDS: traMADol 50 MG TABLET PO PRN (09:05)
--- NOTE | 2019-06-27 09:38 | PDOC ---
Infectious Disease Note Subjective: Subjective pt is sleepy,arousable wants ngt out d/w rn Vital Signs: Vital Signs Vital Signs Date Time Temp Pulse Resp B/P (MAP) Pulse Ox O2 Delivery O2 Flow Rate FiO2 06/27/19 09:05 95 Room Air 06/27/19 07:00 99.7 81 18 125/64 (84) 99.7 Physical Exam: PHYSICAL EXAM GENERAL: Lethargic, opens eyes when I called out his name, appears comfortable. No icterus. HEENT NGT + NECK: Supple. HEART: S1, S2. LUNGS: Clear bilaterally. ABDOMEN: Soft, nontender, obese. Bowel sounds present. yeast in groin EXTREMITIES: Right below knee amputation, scar healthy, left lower extremity amputation stump has a wound with a necrotic area. No bony exposure. No bogginess, excoriation bilateral groin. Right upper extremity AV fistula site looks okay. BACK: Has a superficial stage 1 sacral wound, I was not able to examine as the patient is being transferred to the second floor. No generalized rash, dry skin. 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 Medications: Inpatient Meds: Current Medications Medications (Trade) Dose Ordered Sig/Mitzi Start Time Stop Time Status Last Admin Dose Admin Acetaminophen (Tylenol Supp) 650 mg PRN Q6HRS PRN 06/24/19 10:30 06/24/19 23:03 650 MG Acetaminophen (Tylenol) 650 mg PRN Q6HRS PRN 06/25/19 18:15 06/25/19 22:23 650 MG Allopurinol (Zyloprim) 100 mg DAILY 06/25/19 18:17 06/27/19 08:58 100 MG Aspirin (Children'S Aspirin) 81 mg DAILYWBKFT 06/26/19 08:00 06/27/19 08:58 81 MG Aspirin (Ecotrin) 81 mg DAILYWBKFT 06/24/19 08:00 06/25/19 18:16 DC Atorvastatin Calcium (Lipitor) 10 mg QHS 06/25/19 21:00 06/26/19 20:56 10 MG Clopidogrel Bisulfate (Plavix) 75 mg DAILYWBKFT 06/23/19 08:00 06/27/19 08:58 75 MG Cyanocobalamin (Vitamin B-12) 1,000 mcg DAILY 06/23/19 09:00 06/27/19 08:58 1,000 MCG Dextrose 250 ml PRN Q15MIN PRN 06/25/19 01:30 Dextrose (Dextrose 50%-Water Syringe) 12.5 gm PRN Q15MIN PRN 06/25/19 01:30 06/25/19 01:41 12.5 GM Enoxaparin Sodium (Lovenox 80mg Syringe) 80 mg 1X ONCE 06/23/19 15:30 06/23/19 15:31 DC 06/23/19 15:16 80 MG Enoxaparin Sodium (Lovenox Per Pharmacy Treatment Dosing) 1 each 1X PRN 06/23/19 14:45 06/23/19 21:00 DC Heparin Sodium (Porcine) (Heparin Sodium) 5,000 unit Q12HR 06/24/19 11:00 06/27/19 09:05 5,000 UNIT Heparin Sodium/ Dextrose 500 ml @ 19.3 mls/hr CONT PRN 06/23/19 08:30 06/23/19 14:53 DC Hydromorphone HCl (Dilaudid) 0.5 mg PRN Q10MIN PRN 06/26/19 07:00 06/27/19 06:59 DC Info (Anti-Coagulation Monitoring By Pharmacy) 1 each PRN DAILY PRN 06/23/19 14:30 06/25/19 16:28 1 EACH Info (PHARMACY MONITORING -- do not chart) 1 each PRN DAILY PRN 06/26/19 12:45 Insulin Human Lispro (HumaLOG) 0-6 UNITS BG 400-49... TIDWMEALS 06/23/19 08:00 Ketorolac Tromethamine (Toradol 15mg Vial) 15 mg PRN Q6HRS PRN 06/24/19 10:30 06/29/19 10:29 06/27/19 08:58 15 MG Lidocaine HCl (Xylocaine-Mpf 1% 2ml Vial) 2 ml PRN 1X PRN 06/26/19 07:00 06/27/19 06:59 DC Metoprolol Tartrate (Lopressor Vial) 2.5 mg Q6HRS 06/25/19 18:00 06/27/19 05:38 2.5 MG Micafungin Sodium 100 mg/Dextrose 100 ml @ 100 mls/hr Q24H 06/25/19 09:00 06/27/19 08:58 100 MLS/HR Morphine Sulfate (Morphine Sulfate) 1 mg PRN Q10MIN PRN 06/26/19 07:00 06/27/19 06:59 DC Ondansetron HCl (Zofran) 4 mg PRN Q6HRS PRN 06/26/19 07:00 06/27/19 06:59 DC Pantoprazole Sodium (Protonix) 40 mg DAILYAC 06/23/19 07:30 06/27/19 08:58 40 MG Piperacillin Sod/ Tazobactam Sod (Zosyn Per Pharmacy) 1 each PRN DAILY PRN 06/22/19 17:30 Piperacillin Sod/ Tazobactam Sod 2.25 gm/Sodium Chloride 50 ml @ 100 mls/hr Q8HRS 06/22/19 21:00 06/27/19 05:38 100 MLS/HR Quetiapine Fumarate (SEROquel) 12.5 mg PRN Q8HRS PRN 06/25/19 19:45 Ringer's Solution 1,000 ml @ 30 mls/hr Q24H 06/26/19 07:00 06/26/19 18:59 DC Sodium Chloride 1,000 ml @ 1,000 mls/hr Q1H PRN 06/26/19 12:41 06/26/19 18:40 DC Tramadol HCl (Ultram) 25 mg PRN Q6HRS PRN 06/24/19 10:30 06/27/19 09:05 25 MG Vancomycin HCl (Vanco Per Pharmacy) 1 each PRN DAILY PRN 06/22/19 17:30 06/26/19 14:23 1 EACH Vancomycin HCl (Vancomycin Random Level) 1 each 1X ONCE 06/24/19 06:00 06/24/19 06:01 DC 06/24/19 06:37 1 EACH Vancomycin HCl 500 mg/Sodium Chloride 100 ml @ 100 mls/hr QMWF 06/24/19 16:00 06/26/19 18:12 100 MLS/HR Vancomycin HCl 2 gm/Sodium Chloride 500 ml @ 250 mls/hr 1X ONCE 06/22/19 11:30 06/22/19 13:29 DC 06/22/19 12:32 250 MLS/HR Vitamin A/Vitamin D (Vitamin A & D Ointment) 1 héctor PRN BID PRN 06/26/19 06:00 06/26/19 12:44 1 HÉCTOR Vitamin B Complex/ Vitamin C (Rosalie-Judah) 1 tab DAILY 06/23/19 09:00 06/27/19 08:58 1 TAB Labs: Lab Laboratory Tests Test 06/26/19 12:42 06/26/19 17:12 06/26/19 23:35 Glucose (Fingerstick) 86 mg/dL (70-99) 88 mg/dL (70-99) 134 mg/dL (70-99) Objective: Assessment: 1. Urinary tract infection. No leukocyte esterase or nitrite done. Not done again on repeat UA 06/24. urine had pus like appearance when allan placement was attempted, no allan in place yeast on uc likely colonization 2. Altered mental status, likely multifactorial, improving. CT head negative. 3. 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 End-stage renal disease, on hemodialysis. 5. Low-grade fevers. 6. [facility] resident. 7. Anemia of chronic disease. 8. Severe protein-calorie malnutrition. 9. Chronic atrial fibrillation. 10. High troponin with working diagnosis of non-STEMI. 11. Chronic sacral wound, superficial. 12. Yeast in groin 13. Dysphagia on ngt Plan: Plan of Care - Continue Vanc,Zosyn, renal dosing -micafungin - f/u c/s and labs -Vascular Surgery planning for I and D on Mon - Continue local wound care. - Continue supportive care. - consider palliative care Discussed with RN. MELISSA MOLINA MD Jun 27, 2019 09:38
[2019-06-27 11:00] VITALS: BP 95/54
--- NOTE | 2019-06-27 11:32 | PDOC ---
PROGRESS NOTES Subjective Subjective sleepy but says a few words. just received prn seroquel and tramadol. 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 Objective Objective Vital Signs Date Time Temp Pulse Resp B/P (MAP) Pulse Ox O2 Delivery O2 Flow Rate FiO2 06/27/19 10:39 95 Room Air 06/27/19 07:00 99.7 81 18 125/64 (84) 99.7 Intake and Output 06/27/19 06:59 Intake Total 762 ml Output Total 150 ml Balance 612 ml Intake Oral 0 ml Tube Feeding 762 ml Output Urine Total 150 ml # Bowel Movements 1 Physical Exam Abdomen: Soft Heart: Normal S1, Normal S2 Extremities: Other (bilateral BKA) General: Other (sleepy) HEENT: PERRLA Lungs: Clear to auscultation Neuro: Normal speech Psych/Mental Status: Mood NL Skin: No rashes Assessment Assessment Problems metabolic encephalopathy. 2. Pyuria, consistent with urinary tract infection. pus in urine 3. Bilateral below-knee amputation. 4. left below-knee amputation stump wound infection 5. Diabetes mellitus type 2. 6. Peripheral arterial disease. 7. End-stage renal disease, on hemodialysis. m-w-f 8. paroxysmal atrial fibrillation. in nsr. not a coumadin candidate. recent hx of retroperitoneal bleed on anticoagulants and fall risk. 9. Severe protein-calorie malnutrition. 10. Anemia of chronic disease. NSTEMI oropharyngeal dysphagia Medical Problems: (1) Altered mental status Status: Acute (2) Anemia in chronic illness Status: Chronic (3) CAD (coronary artery disease) Status: Chronic (4) Chronic a-fib Status: Chronic (5) DM2 (diabetes mellitus, type 2) Status: Chronic (6) ESRD (end stage renal disease) Status: Acute (7) HTN (hypertension) Status: Chronic (8) Metabolic encephalopathy Status: Acute (9) NSTEMI (non-ST elevated myocardial infarction) Status: Acute (10) Paroxysmal A-fib Status: Acute (11) Peripheral artery disease Status: Chronic (12) Severe protein-calorie malnutrition Status: Chronic (13) SSS (sick sinus syndrome) Status: Chronic (14) UTI (urinary tract infection) Status: Acute Plan Plan of Care continue iv vancomycin and zosyn and micafungin I and D saturday left BKA stump wound hemodialysis saturday analgesics prn. he gets somnolent with narcotics continue NG tube feeding Comment Review of Relevant I have reviewed the following items soumya (where applicable) has been applied. Labs Laboratory Tests Test 06/25/19 12:03 06/25/19 17:38 06/25/19 21:25 06/26/19 01:48 Glucose (Fingerstick) 129 mg/dL (70-99) 94 mg/dL (70-99) 101 mg/dL (70-99) 159 mg/dL (70-99) Test 06/26/19 03:30 06/26/19 06:16 06/26/19 12:42 06/26/19 17:12 White Blood Count 8.2 x10^3/uL (4.0-11.0) Red Blood Count 3.73 x10^6/uL (4.30-5.70) Hemoglobin 10.7 g/dL (13.0-17.5) Hematocrit 33.0 % (39.0-53.0) Mean Corpuscular Volume 89 fL (79-100) Mean Corpuscular Hemoglobin 29 pg (25-35) Mean Corpuscular Hemoglobin Concent 32 g/dL (31-37) Red Cell Distribution Width 18.4 % (11.5-14.5) Platelet Count 408 x10^3/uL (140-400) Neutrophils (%) (Auto) 65 % (31-73) Lymphocytes (%) (Auto) 17 % (24-48) Monocytes (%) (Auto) 9 % (0-9) Eosinophils (%) (Auto) 8 % (0-3) Basophils (%) (Auto) 1 % (0-3) Neutrophils # (Auto) 5.4 x10^3/uL (1.8-7.7) Lymphocytes # (Auto) 1.4 x10^3/uL (1.0-4.8) Monocytes # (Auto) 0.7 x10^3/uL (0.0-1.1) Eosinophils # (Auto) 0.7 x10^3/uL (0.0-0.7) Basophils # (Auto) 0.1 x10^3/uL (0.0-0.2) Sodium Level 142 mmol/L (136-145) Potassium Level 4.2 mmol/L (3.5-5.1) Chloride Level 99 mmol/L (98-107) Carbon Dioxide Level 32 mmol/L (21-32) Anion Gap 11 (6-14) Blood Urea Nitrogen 36 mg/dL (8-26) Creatinine 5.3 mg/dL (0.7-1.3) Estimated GFR (Cockcroft-Gault) 12.8 Glucose Level 128 mg/dL (70-99) Calcium Level 9.1 mg/dL (8.5-10.1) Glucose (Fingerstick) 92 mg/dL (70-99) 86 mg/dL (70-99) 88 mg/dL (70-99) Test 06/26/19 23:35 Glucose (Fingerstick) 134 mg/dL (70-99) Laboratory Tests Test 06/26/19 12:42 06/26/19 17:12 06/26/19 23:35 Glucose (Fingerstick) 86 mg/dL (70-99) 88 mg/dL (70-99) 134 mg/dL (70-99) Microbiology 06/22/19 Urine Culture - Final, Complete 06/22/19 Urine Culture Result 1 (TEREZA) - Final, Complete 06/22/19 Blood Culture - Preliminary, Resulted NO GROWTH AFTER 4 DAYS Medications Current Medications Vancomycin HCl 250 ml @ 250 mls/hr 1X ONCE IV ; Start 06/22/19 at 10:45; Stop 06/22/19 at 11:44; Status UNV Piperacillin Sod/ Tazobactam Sod 2.25 gm/Sodium Chloride 50 ml @ 100 mls/hr 1X ONCE IV Last administered on 06/22/19at 11:55; Start 06/22/19 at 10:45; Stop 06/22/19 at 11:14; Status DC Sodium Chloride 1,000 ml @ 100 mls/hr Q10H IV Last administered on 06/22/19at 11:55; Start 06/22/19 at 10:38; Stop 06/22/19 at 20:37; Status DC Vancomycin HCl 2 gm/Sodium Chloride 500 ml @ 250 mls/hr 1X ONCE IV Last administered on 06/22/19at 12:32; Start 06/22/19 at 11:30; Stop 06/22/19 at 13:29; Status DC Info (PHARMACY MONITORING -- do not chart) 1 each PRN DAILY PRN MC SEE COMMENTS; Start 06/22/19 at 16:30; Stop 06/24/19 at 11:38; Status DC Info (PHARMACY MONITORING -- do not chart) 1 each PRN DAILY PRN MC SEE ANAIS TS; Start 06/22/19 at 16:30; Status UNV Sodium Chloride 1,000 ml @ 40 mls/hr Q24H IV Last administered on 06/24/19at 18:31; Start 06/22/19 at 17:30; Stop 06/25/19 at 19:44; Status DC Vancomycin HCl (Vanco Per Pharmacy) 1 each PRN DAILY PRN MC SEE COMMENTS Last administered on 06/26/19at 14:23; Start 06/22/19 at 17:30 Piperacillin Sod/ Tazobactam Sod (Zosyn Per Pharmacy) 1 each PRN DAILY PRN MC SEE COMMENTS; Start 06/22/19 at 17:30 Acetaminophen (Tylenol) 650 mg PRN Q6HRS PRN PO MILD PAIN / TEMP; Start 06/22/19 at 17:30; Stop 06/25/19 at 18:15; Status DC Ondansetron HCl (Zofran) 4 mg PRN Q6HRS PRN IV NAUSEA/VOMITING; Start 06/22/19 at 17:30 Clopidogrel Bisulfate (Plavix) 75 mg DAILYWBKFT PO Last administered on 06/27/19at 08:58; Start 06/23/19 at 08:00 Vitamin B Complex/ Vitamin C (Carlos-Moses) 1 tab DAILY PO Last administered on 06/27/19at 08:58; Start 06/23/19 at 09:00 Allopurinol (Zyloprim) 100 mg DAILY PO ; Start 06/23/19 at 09:00; Stop 06/25/19 at 18:17; Status DC Atorvastatin Calcium (Lipitor) 40 mg QHS PO Last administered on 06/22/19at 21:37; Start 06/22/19 at 21:00; Stop 06/25/19 at 12:19; Status DC Pantoprazole Sodium (Protonix) 40 mg DAILYAC PO Last administered on 06/27/19at 08:58; Start 06/23/19 at 07:30 Cyanocobalamin (Vitamin B-12) 1,000 mcg DAILY PO Last administered on 06/27/19at 08:58; Start 06/23/19 at 09:00 Piperacillin Sod/ Tazobactam Sod 2.25 gm/Sodium Chloride 50 ml @ 100 mls/hr Q8HRS IV Last administered on 06/27/19at 05:38; Start 06/22/19 at 21:00 Heparin Sodium (Porcine) (Heparin Sodium) 5,000 unit BID SQ Last administered on 06/22/19at 21:37; Start 06/22/19 at 21:00; Stop 06/23/19 at 08:23; Status DC Insulin Human Lispro (HumaLOG) 0-6 UNITS BG 400-49... TIDWMEALS SQ ; Start 06/23/19 at 08:00 Vancomycin HCl (Vancomycin Random Level) 1 each 1X ONCE MC Last administered on 06/24/19at 06:37; Start 06/24/19 at 06:00; Stop 06/24/19 at 06:01; Status DC Heparin Sodium/ Dextrose 500 ml @ 19.3 mls/hr CONT PRN IV SEE I/O RECORD; Start 06/23/19 at 08:30; Stop 06/23/19 at 14:53; Status DC Heparin Sodium (Porcine) (Heparin Sodium) 2,000 unit PRN Q6HRS PRN IV FOR UFH LEVEL LESS THAN 0.2; Start 06/23/19 at 08:30; Stop 06/23/19 at 14:53; Status DC Aspirin (Ecotrin) 325 mg 1X ONCE PO ; Start 06/23/19 at 10:30; Stop 06/23/19 at 10:31; Status DC Aspirin (Ecotrin) 81 mg DAILYWBKFT PO ; Start 06/24/19 at 08:00; Stop 06/25/19 at 18:16; Status DC Ondansetron HCl (Zofran) 4 mg PRN Q6HRS PRN IV NAUSEA/VOMITING; Start 06/24/19 at 07:00; Stop 06/25/19 at 06:59; Status DC Morphine Sulfate (Morphine Sulfate) 1 mg PRN Q10MIN PRN IV SEVERE PAIN 7-10; Start 06/24/19 at 07:00; Stop 06/24/19 at 10:06; Status DC Ringer's Solution 1,000 ml @ 30 mls/hr Q24H IV ; Start 06/24/19 at 07:00; Stop 06/24/19 at 18:59; Status DC Lidocaine HCl (Xylocaine-Mpf 1% 2ml Vial) 2 ml PRN 1X PRN ID PRIOR TO IV START; Start 06/24/19 at 07:00; Stop 06/25/19 at 06:59; Status DC Hydromorphone HCl (Dilaudid) 0.5 mg PRN Q10MIN PRN IV SEV PAIN, Second choice; Start 06/24/19 at 07:00; Stop 06/24/19 at 10:06; Status DC Info (Anti-Coagulation Monitoring By Pharmacy) 1 each PRN DAILY PRN MC SEE COMMENTS Last administered on 06/25/19at 16:28; Start 06/23/19 at 14:30 Enoxaparin Sodium (Lovenox Per Pharmacy Treatment Dosing) 1 each 1X PRN MC SEE COMMENTS; Start 06/23/19 at 14:45; Stop 06/23/19 at 21:00; Status DC Enoxaparin Sodium (Lovenox 80mg Syringe) 80 mg 1X ONCE SQ Last administered on 06/23/19at 15:16; Start 06/23/19 at 15:30; Stop 06/23/19 at 15:31; Status DC Heparin Sodium (Porcine) (Heparin Sodium) 5,000 unit Q12HR SQ Last administered on 06/27/19at 09:05; Start 06/24/19 at 11:00 Acetaminophen (Tylenol Supp) 650 mg PRN Q6HRS PRN MN MILD PAIN / TEMP Last adm inistered on 06/24/19at 23:03; Start 06/24/19 at 10:30 Tramadol HCl (Ultram) 25 mg PRN Q6HRS PRN PO PAIN MODERATE PAIN Last admi nistered on 06/27/19at 09:05; Start 06/24/19 at 10:30 Ketorolac Tromethamine (Toradol 15mg Vial) 15 mg PRN Q6HRS PRN IV PAIN Last administered on 06/27/19at 08:58; Start 06/24/19 at 10:30; Stop 06/29/19 at 10:29 Sodium Chloride 1,000 ml @ 1,000 mls/hr Q1H PRN IV hypotension; Start 06/24/19 at 11:27; Stop 06/24/19 at 17:26; Status DC Sodium Chloride 1,000 ml @ 400 mls/hr Q2H30M PRN IV PATENCY; Start 06/24/19 at 11:27; Stop 06/24/19 at 23:26; Status DC Info (PHARMACY MONITORING -- do not chart) 1 each PRN DAILY PRN MC SEE COMMENTS; Start 06/24/19 at 11:30 Info (PHARMACY MONITORING -- do not chart) 1 each PRN DAILY PRN MC SEE COMM ENTS; Start 06/24/19 at 11:30; Status UNV Vancomycin HCl 500 mg/Sodium Chloride 100 ml @ 100 mls/hr QMWF IV Last administered on 06/26/19at 18:12; Start 06/24/19 at 16:00 Dextrose (Dextrose 50%-Water Syringe) 12.5 gm PRN Q15MIN PRN IV SEE COMMENTS Last administered on 06/25/19at 01:41; Start 06/25/19 at 01:30 Dextrose 250 ml PRN Q15MIN PRN IV SEE COMMENTS; Start 06/25/19 at 01:30 Micafungin Sodium 100 mg/Dextrose 100 ml @ 100 mls/hr Q24H IV Last administered on 06/27/19at 08:58; Start 06/25/19 at 09:00 Metoprolol Tartrate (Lopressor Vial) 2.5 mg Q6HRS IVP Last administered on 06/27/19at 05:38; Start 06/25/19 at 18:00 Atorvastatin Calcium (Lipitor) 10 mg QHS PEG Last administered on 06/26/19at 20:56; Start 06/25/19 at 21:00 Ondansetron HCl (Zofran) 4 mg PRN Q6HRS PRN IV NAUSEA/VOMITING; Start 06/26/19 at 07:00; Stop 06/27/19 at 06:59; Status DC Morphine Sulfate (Morphine Sulfate) 1 mg PRN Q10MIN PRN IV SEVERE PAIN 7-10; Start 06/26/19 at 07:00; Stop 06/27/19 at 06:59; Status DC Ringer's Solution 1,000 ml @ 30 mls/hr Q24H IV ; Start 06/26/19 at 07:00; Stop 06/26/19 at 18:59; Status DC Lidocaine HCl (Xylocaine-Mpf 1% 2ml Vial) 2 ml PRN 1X PRN ID PRIOR TO IV START; Start 06/26/19 at 07:00; Stop 06/27/19 at 06:59; Status DC Hydromorphone HCl (Dilaudid) 0.5 mg PRN Q10MIN PRN IV SEV PAIN, Second choice; Start 06/26/19 at 07:00; Stop 06/27/19 at 06:59; Status DC Acetaminophen (Tylenol) 650 mg PRN Q6HRS PRN PEG MILD PAIN / TEMP Last administered on 06/25/19at 22:23; Start 06/25/19 at 18:15 Aspirin (Children'S Aspirin) 81 mg DAILYWBKFT PEG Last administered on 06/27/19at 08:58; Start 06/26/19 at 08:00 Allopurinol (Zyloprim) 100 mg DAILY PEG Last administered on 06/27/19at 08:58; Start 06/25/19 at 18:17 Quetiapine Fumarate (SEROquel) 12.5 mg PRN Q8HRS PRN PO PSYCHOTIC BEHAVIOR; Start 06/25/19 at 19:45 Vitamin A/Vitamin D (Vitamin A & D Ointment) 1 héctor PRN BID PRN TP SKIN PROTECTION Last administered on 06/26/19at 12:44; Start 06/26/19 at 06:00 Sodium Chloride 1,000 ml @ 1,000 mls/hr Q1H PRN IV hypotension; Start 06/26/19 at 12:41; Stop 06/26/19 at 18:40; Status DC Info (PHARMACY MONITORING -- do not chart) 1 each PRN DAILY PRN MC SEE COMMENTS; Start 06/26/19 at 12:45; Status UNV Info (PHARMACY MONITORING -- do not chart) 1 each PRN DAILY PRN MC SEE ANAIS TS; Start 06/26/19 at 12:45 Active Scripts Active Blachly 5-325 Tablet (Acetaminophen/Hydrocodone Bitart) 1 Each Tablet 0.5 Tab PO Q4HRS Zyvox (Linezolid) 600 Mg Tablet 600 Mg PO BID 4 Days Amox Tr-K Clv 500-125 Mg Tab (Amoxicillin/Potassium Clav) 1 Each Tablet 1 Tab PO DAILY 4 Days Tramadol Hcl 50 Mg Tablet 50 Mg PO PRN Q6HRS PRN Ondansetron Odt (Ondansetron) 4 Mg Tab.rapdis 4 Mg PO Q6HRS PRN Humalog (Insulin Lispro) 100 Unit/1 Ml Insuln.pen 0 Units SQ TIDWMEALS 30 Days BG 150-199= 1 units 200-299= 2 units 300-399= 4 units 400-499= 6 units ac tid sliding scale Reported Omeprazole 20 Mg Tablet.dr 1 Tab PO DAILY Vitamin D3 (Cholecalciferol (Vitamin D3)) 1,000 Unit Tablet 1 Tab PO DAILY Vitamin B-12 (Cyanocobalamin (Vitamin B-12)) 1,000 Mcg Tablet 1 Tab PO DAILY Senna (Sennosides) 8.6 Mg Tablet 8.6 Mg PO PRN DAILY PRN 2 tabs Renvela (Sevelamer Carbonate) 800 Mg Tablet 800 Mg PO TIDWMEALS Renal Caps Softgel (Folic Acid/Vitamin B Comp W-C) 1 Mg Capsule 1 Mg PO DAILY Reglan (Metoclopramide Hcl) 10 Mg Tablet 5 Mg PO TID Probiotic (Lactobacillus Acidophilus) 1 Each Capsule 1 Each PO BID Milk Of Magnesia (Magnesium Hydroxide) 400 Mg/5 Ml Oral.susp 400 Mg PO PRN DAILY PRN Lipitor (Atorvastatin Calcium) 40 Mg Tablet 1 Tab PO QHS Humalog (Insulin Lispro) 100 Unit/1 Ml Insuln.pen 100 Unit SQ TIDBFRMEAL 150-199=1 unit 200-299=2 units 300-399=4 units 100-499=6 units Clopidogrel (Clopidogrel Bisulfate) 75 Mg Tablet 1 Tab PO DAILY Duoneb 0.5-3(2.5) Mg/3 Ml (Albuterol/Ipratropium) 3 Ml Ampul.neb 3 Ml NEB PRN Q4HRS PRN Lac-Hydrin Five (Ammonium Lactate) 226 Gm Lotion 226 Gm TP BID Allopurinol 100 Mg Tablet 1 Tab PO DAILY Tylenol (Acetaminophen) 325 Mg Tablet 1 Tab PO PRN Q4HRS Aspirin 81 Mg Tab.chew 81 Mg PO DAILY Vitals/I & O Vital Sign - Last 24 Hours 06/26/19 06/26/19 06/26/19 06/26/19 17:29 19:00 20:30 23:42 Temp 99.3 99.1 99.3 99.1 Pulse 92 87 90 Resp 24 22 B/P (MAP) 116/55 88/49 (62) 139/85 (103) Pulse Ox 95 95 O2 Delivery Room Air Room Air Room Air 06/27/19 06/27/19 06/27/19 06/27/19 00:08 03:00 05:38 07:00 Temp 99.2 99.7 99.2 99.7 Pulse 90 71 71 81 Resp 24 18 B/P (MAP) 139/85 107/42 (63) 107/42 125/64 (84) Pulse Ox 97 95 O2 Delivery Room Air Room Air 06/27/19 06/27/19 06/27/19 08:00 09:05 10:39 Pulse Ox 95 95 O2 Delivery Room Air Room Air Room Air Intake and Output 06/26/19 06/26/19 06/27/19 14:59 22:59 06:59 Intake Total 110 ml 452 ml 200 ml Output Total 150 ml Balance 110 ml 452 ml 50 ml Nutrition Consultation Dietary Evaluation: Recommendations by RD: Increase Calorie Intake, Protein supplementation Comments: REC continue increasing TF rate 10 ml q8 hrs as tolerated to goal of Nepro@goal rate 40 ml/hr w/150 ml water flushes q6 hrs per MD REC Marcell BID via feeding tube, mix each packet w/4 oz water to dissolve, flush tube w/30 ml water before and after each packet - dietary aware Continue w/carlos-moses for additional vitamin needs for skin healing Expected Outcomes/Goals: TF intiation/infusion to meet >75% est needs - not met, goal ongoing Malnutrition Findings: Food and Nutrition Intake (Sev: <50% est energy req 5days Weight Status: Appropriate SAM OLMOS MD Jun 27, 2019 11:31
--- NOTE | 2019-06-27 12:52 | PDOC ---
Renal-Progress Notes Subjective Notes Notes SLEEPY History of Present Illness Hx of present illness STABLE Vitals Vitals Vital Signs Date Time Temp Pulse Resp B/P (MAP) Pulse Ox O2 Delivery O2 Flow Rate FiO2 06/27/19 12:09 66 95/54 06/27/19 11:00 99.7 20 100 Room Air 99.7 Weight Weight [ ] I.O. Intake and Output Intake and Output 06/27/19 06:59 Intake Total 762 ml Output Total 150 ml Balance 612 ml Intake Oral 0 ml Tube Feeding 762 ml Output Urine Total 150 ml # Bowel Movements 1 Labs Labs Laboratory Tests Test 06/26/19 17:12 06/26/19 23:35 06/27/19 12:20 Glucose (Fingerstick) 88 mg/dL (70-99) 134 mg/dL (70-99) 221 mg/dL (70-99) Micro Micro Microbiology 06/22/19 Urine Culture - Final, Complete 06/22/19 Urine Culture Result 1 (TEREZA) - Final, Complete 06/22/19 Blood Culture - Final, Complete NO GROWTH AFTER 5 DAYS Review of Systems Constitutional: yes: other (CONFUSED) Physical Exam General Appearance: no apparent distress Skin: warm Respiratory: bilateral CTA Heart: S1S2 Abdomen: soft, bowel sounds present Genitourinary: bladder flat Extremities: pulses present Neurology: alert, follow commands, other (oriented to self) Assessment Assessment IMP UTI ? INFECTED BKA STUMP ANEMIA DM II HTN ESRD MET ENCEPHALOPATHY DYSPHAGIA PLAN CONT ANTIBIOTICS WOUND CARE HD SATURDAY CBI UROLOGY FOLLOWING CONT TF FOR NOW D/W NANCY EMMANUEL MD Jun 27, 2019 12:52
[2019-06-27 15:00] VITALS: BP 100/60
[2019-06-27] MEDS: VANCOMYCIN PER PHARMACY MC PRN (15:26)
[2019-06-27 19:15] VITALS: BP 131/91
[2019-06-27] MEDS: ATORVASTATIN CALCIUM 10 MG TABLET. PEG SCH (21:38)
[2019-06-27 23:38] VITALS: BP 94/52
[2019-06-28] VITALS (7 sets, daily range): BP systolic 86–134; BP diastolic 49–72
[2019-06-28 04:33] LABS: HEMATOCRIT 32.8 % (39.0-53.0); HEMOGLOBIN 10.4 g/dL (13.0-17.5); RED BLOOD COUNT 3.73 x10^6/uL (4.30-5.70); RED CELL DISTRIBUTION WIDTH 18.4 % (11.5-14.5); WHITE BLOOD COUNT 14.3 x10^3/uL (4.0-11.0)
[2019-06-28] MEDS: METOPROLOL TARTRATE 5 MG/5 ML VIAL. IVP SCH ×2 (06:00)
[2019-06-28] MEDS: INSULIN LISPRO 300 UNITS/3 ML VIAL. SQ SCH ×3 (08:00→17:00)
--- NOTE | 2019-06-28 09:38 | PDOC ---
Infectious Disease Note Subjective: Subjective pt is sleepy,arousable more calm today no fevers or chills has some loose bm had some residuals last night, no vomiting d/w rn ROS: ROS unable to obtain Vital Signs: Vital Signs Vital Signs Date Time Temp Pulse Resp B/P (MAP) Pulse Ox O2 Delivery O2 Flow Rate FiO2 06/28/19 08:00 Room Air 06/28/19 07:00 98.3 84 24 118/57 (37) 93 98.3 Physical Exam: PHYSICAL EXAM GENERAL: Lethargic, opens eyes when I called out his name, appears comfortable. No icterus. HEENT NGT + no th kimball, oral mucosa dry NECK: Supple. HEART: S1, S2. LUNGS: Clear bilaterally. ABDOMEN: Soft, nontender, obese. Bowel sounds present. yeast in groin EXTREMITIES: Right below knee amputation, scar healthy, left lower extremity amputation stump has a wound with a necrotic area. No bony exposure. No bogginess, excoriation bilateral groin. Right upper extremity AV fistula site looks okay. BACK: Has a superficial stage 1 sacral wound, I was not able to examine as the patient is being transferred to the second floor. No generalized rash, dry skin. 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 Medications: Inpatient Meds: Current Medications Medications (Trade) Dose Ordered Sig/Mitzi Start Time Stop Time Status Last Admin Dose Admin Acetaminophen (Tylenol Supp) 650 mg PRN Q6HRS PRN 06/24/19 10:30 06/24/19 23:03 650 MG Acetaminophen (Tylenol) 650 mg PRN Q6HRS PRN 06/25/19 18:15 06/25/19 22:23 650 MG Allopurinol (Zyloprim) 100 mg DAILY 06/25/19 18:17 06/27/19 08:58 100 MG Aspirin (Children'S Aspirin) 81 mg DAILYWBKFT 06/26/19 08:00 06/27/19 08:58 81 MG Aspirin (Ecotrin) 81 mg DAILYWBKFT 06/24/19 08:00 06/25/19 18:16 DC Atorvastatin Calcium (Lipitor) 10 mg QHS 06/25/19 21:00 06/27/19 22:03 10 MG Clopidogrel Bisulfate (Plavix) 75 mg DAILYWBKFT 06/23/19 08:00 06/27/19 08:58 75 MG Cyanocobalamin (Vitamin B-12) 1,000 mcg DAILY 06/23/19 09:00 06/27/19 08:58 1,000 MCG Dextrose 250 ml PRN Q15MIN PRN 06/25/19 01:30 Dextrose (Dextrose 50%-Water Syringe) 12.5 gm PRN Q15MIN PRN 06/25/19 01:30 06/25/19 01:41 12.5 GM Enoxaparin Sodium (Lovenox 80mg Syringe) 80 mg 1X ONCE 06/23/19 15:30 06/23/19 15:31 DC 06/23/19 15:16 80 MG Enoxaparin Sodium (Lovenox Per Pharmacy Treatment Dosing) 1 each 1X PRN 06/23/19 14:45 06/23/19 21:00 DC Heparin Sodium (Porcine) (Heparin Sodium) 5,000 unit Q12HR 06/24/19 11:00 06/27/19 22:03 5,000 UNIT Heparin Sodium/ Dextrose 500 ml @ 19.3 mls/hr CONT PRN 06/23/19 08:30 06/23/19 14:53 DC Hydromorphone HCl (Dilaudid) 0.5 mg PRN Q10MIN PRN 06/26/19 07:00 06/27/19 06:59 DC Info (Anti-Coagulation Monitoring By Pharmacy) 1 each PRN DAILY PRN 06/23/19 14:30 06/25/19 16:28 1 EACH Info (PHARMACY MONITORING -- do not chart) 1 each PRN DAILY PRN 06/26/19 12:45 Insulin Human Lispro (HumaLOG) 0-6 UNITS BG 400-49... TIDWMEALS 06/23/19 08:00 06/27/19 13:04 1 UNITS Ketorolac Tromethamine (Toradol 15mg Vial) 15 mg PRN Q6HRS PRN 06/24/19 10:30 06/29/19 10:29 06/27/19 08:58 15 MG Lidocaine HCl (Xylocaine-Mpf 1% 2ml Vial) 2 ml PRN 1X PRN 06/26/19 07:00 06/27/19 06:59 DC Metoprolol Tartrate (Lopressor Vial) 2.5 mg Q6HRS 06/25/19 18:00 06/27/19 17:59 2.5 MG Micafungin Sodium 100 mg/Dextrose 100 ml @ 100 mls/hr Q24H 06/25/19 09:00 06/27/19 08:58 100 MLS/HR Morphine Sulfate (Morphine Sulfate) 1 mg PRN Q10MIN PRN 06/26/19 07:00 06/27/19 06:59 DC Ondansetron HCl (Zofran) 4 mg PRN Q6HRS PRN 06/26/19 07:00 06/27/19 06:59 DC Pantoprazole Sodium (Protonix) 40 mg DAILYAC 06/23/19 07:30 06/27/19 08:58 40 MG Piperacillin Sod/ Tazobactam Sod (Zosyn Per Pharmacy) 1 each PRN DAILY PRN 06/22/19 17:30 Piperacillin Sod/ Tazobactam Sod 2.25 gm/Sodium Chloride 50 ml @ 100 mls/hr Q8HRS 06/22/19 21:00 06/27/19 14:15 100 MLS/HR Quetiapine Fumarate (SEROquel) 12.5 mg PRN Q8HRS PRN 06/25/19 19:45 06/27/19 22:03 12.5 MG Ringer's Solution 1,000 ml @ 30 mls/hr Q24H 06/26/19 07:00 06/26/19 18:59 DC Sodium Chloride 1,000 ml @ 1,000 mls/hr Q1H PRN 06/26/19 12:41 06/26/19 18:40 DC Tramadol HCl (Ultram) 25 mg PRN Q6HRS PRN 06/24/19 10:30 06/27/19 09:05 25 MG Vancomycin HCl (Vanco Per Pharmacy) 1 each PRN DAILY PRN 06/22/19 17:30 06/27/19 15:26 1 EACH Vancomycin HCl (Vancomycin Random Level) 1 each 1X ONCE 06/24/19 06:00 06/24/19 06:01 DC 06/24/19 06:37 1 EACH Vancomycin HCl 500 mg/Sodium Chloride 100 ml @ 100 mls/hr QMWF 06/24/19 16:00 06/26/19 18:12 100 MLS/HR Vancomycin HCl 2 gm/Sodium Chloride 500 ml @ 250 mls/hr 1X ONCE 06/22/19 11:30 06/22/19 13:29 DC 06/22/19 12:32 250 MLS/HR Vitamin A/Vitamin D (Vitamin A & D Ointment) 1 héctor PRN BID PRN 06/26/19 06:00 06/26/19 12:44 1 HÉCTOR Vitamin B Complex/ Vitamin C (Rosaile-Judah) 1 tab DAILY 06/23/19 09:00 06/27/19 08:58 1 TAB Labs: Lab Laboratory Tests Test 06/27/19 12:20 06/27/19 17:58 06/28/19 04:00 Glucose (Fingerstick) 221 mg/dL (70-99) 169 mg/dL (70-99) White Blood Count 14.3 x10^3/uL (4.0-11.0) Red Blood Count 3.73 x10^6/uL (4.30-5.70) Hemoglobin 10.4 g/dL (13.0-17.5) Hematocrit 32.8 % (39.0-53.0) Mean Corpuscular Volume 88 fL (79-100) Mean Corpuscular Hemoglobin 28 pg (25-35) Mean Corpuscular Hemoglobin Concent 32 g/dL (31-37) Red Cell Distribution Width 18.4 % (11.5-14.5) Platelet Count 453 x10^3/uL (140-400) Objective: Assessment: 1. Urinary tract infection. No leukocyte esterase or nitrite done. Not done again on repeat UA 06/24. urine had pus like appearance when allan placement was attempted, yeast on uc likely colonization allan now in place 2. Altered mental status, likely multifactorial, improving. CT head negative. 3. 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 End-stage renal disease, on hemodialysis. 5. Low-grade fevers. 6. [facility] resident. 7. Anemia of chronic disease. 8. Severe protein-calorie malnutrition. 9. Chronic atrial fibrillation. 10. High troponin with working diagnosis of non-STEMI. 11. Chronic sacral wound, superficial. 12. Yeast in groin 13. Dysphagia on ngt Plan: Plan of Care - Continue Vanc,Zosyn, renal dosing -micafungin - check c diff pcr - f/u c/s and labs -Vascular Surgery planning for I and D on Mon - Continue local wound care. - Continue supportive care. - palliative consulted Discussed with CHARY. MELISSA MOLINA MD Jun 28, 2019 09:38
[2019-06-28] MEDS: PIPERACILLIN/TAZOBACTAM 2.25 GM in IV NORMAL SALINE 50ML 50 ML IV SCH ×3 (10:54→20:07)
[2019-06-28] MEDS: QUEtiapine 25 MG TABLET. PO PRN ×2 (10:56→20:07)
[2019-06-28] MEDS: CYANOCOBALAMIN (VITAMIN B-12) 1,000 MCG TABLET. PO SCH (10:56)
[2019-06-28] MEDS: ALLOPURINOL 100 MG TABLET. PEG SCH (10:56)
[2019-06-28] MEDS: ASPIRIN CHEWABLE 81 MG TABLET. PEG SCH (10:56)
[2019-06-28] MEDS: CLOPIDOGREL BISULFATE 75 MG TABLET PO SCH (10:56)
[2019-06-28] MEDS: FOLIC/VIT B COMP W-C (RENAL) TABLET. PO SCH (10:56)
[2019-06-28] MEDS: MICAFUNGIN 100 MG in IV DEXTROSE 5% 100ML 100 ML IV SCH (10:57)
[2019-06-28] MEDS: HEPARIN for SUB-Q USE 5,000 UNIT/ML VIAL. SQ SCH ×2 (10:58→20:38)
[2019-06-28] MEDS: PANTOPRAZOLE 40 MG TABLET.DR. PO SCH (10:59)
--- NOTE | 2019-06-28 11:24 | PDOC ---
PROGRESS NOTES Subjective Subjective eyes closed but talks a little but softly. lethargic. receives low dose seroquel prn of agitated outbursts. Objective Objective Vital Signs Date Time Temp Pulse Resp B/P (MAP) Pulse Ox O2 Delivery O2 Flow Rate FiO2 06/28/19 10:55 84 118/57 06/28/19 08:00 Room Air 06/28/19 07:00 98.3 24 93 98.3 Intake and Output 06/28/19 06:59 Intake Total 1040 ml Output Total 60 ml Balance 980 ml Tube Feeding 1040 ml Output Urine Total 60 ml # Bowel Movements 1 Physical Exam Abdomen: Soft Heart: Regular rate, Normal S1, Normal S2 Extremities: Other (bilateral BKA) General: Other (lethargic) HEENT: Atraumatic Lungs: Clear to auscultation Neuro: Normal speech, Other (says a few words . speaks softly) Psych/Mental Status: Mental status NL Skin: No rashes Assessment Assessment Problemsmetabolic encephalopathy. 2. Pyuria, consistent with urinary tract infection. pus in urine. urine culture grew 10-25K yeast 3. Bilateral below-knee amputation. 4. left below-knee amputation stump wound infection 5. Diabetes mellitus type 2. 6. Peripheral arterial disease. 7. End-stage renal disease, on hemodialysis. m-w-f 8. paroxysmal atrial fibrillation. in nsr. not a coumadin candidate. recent hx of retroperitoneal bleed on anticoagulants and fall risk. 9. Severe protein-calorie malnutrition. 10. Anemia of chronic disease. NSTEMI oropharyngeal dysphagia Medical Problems: (1) Altered mental status Status: Acute (2) Anemia in chronic illness Status: Chronic (3) CAD (coronary artery disease) Status: Chronic (4) Chronic a-fib Status: Chronic (5) DM2 (diabetes mellitus, type 2) Status: Chronic (6) ESRD (end stage renal disease) Status: Acute (7) HTN (hypertension) Status: Chronic (8) Metabolic encephalopathy Status: Acute (9) NSTEMI (non-ST elevated myocardial infarction) Status: Acute (10) Paroxysmal A-fib Status: Acute (11) Peripheral artery disease Status: Chronic (12) Severe protein-calorie malnutrition Status: Chronic (13) SSS (sick sinus syndrome) Status: Chronic (14) UTI (urinary tract infection) Status: Acute Plan Plan of Care continue wound care possible wound debridement tomorrow continue iv vancomycin and zosyn and micafungin hemodialysis tomorrow low dose seroquel prn low dose tramadol prn tube feeding lab tomorrow Comment Review of Relevant I have reviewed the following items soumya (where applicable) has been applied. Labs Laboratory Tests Test 06/26/19 12:42 06/26/19 17:12 06/26/19 23:35 06/27/19 12:20 Glucose (Fingerstick) 86 mg/dL (70-99) 88 mg/dL (70-99) 134 mg/dL (70-99) 221 mg/dL (70-99) Test 06/27/19 17:58 06/28/19 04:00 Glucose (Fingerstick) 169 mg/dL (70-99) White Blood Count 14.3 x10^3/uL (4.0-11.0) Red Blood Count 3.73 x10^6/uL (4.30-5.70) Hemoglobin 10.4 g/dL (13.0-17.5) Hematocrit 32.8 % (39.0-53.0) Mean Corpuscular Volume 88 fL (79-100) Mean Corpuscular Hemoglobin 28 pg (25-35) Mean Corpuscular Hemoglobin Concent 32 g/dL (31-37) Red Cell Distribution Width 18.4 % (11.5-14.5) Platelet Count 453 x10^3/uL (140-400) Laboratory Tests Test 06/27/19 12:20 06/27/19 17:58 06/28/19 04:00 Glucose (Fingerstick) 221 mg/dL (70-99) 169 mg/dL (70-99) White Blood Count 14.3 x10^3/uL (4.0-11.0) Red Blood Count 3.73 x10^6/uL (4.30-5.70) Hemoglobin 10.4 g/dL (13.0-17.5) Hematocrit 32.8 % (39.0-53.0) Mean Corpuscular Volume 88 fL (79-100) Mean Corpuscular Hemoglobin 28 pg (25-35) Mean Corpuscular Hemoglobin Concent 32 g/dL (31-37) Red Cell Distribution Width 18.4 % (11.5-14.5) Platelet Count 453 x10^3/uL (140-400) Microbiology 06/22/19 Urine Culture - Final, Complete 06/22/19 Urine Culture Result 1 (TEREZA) - Final, Complete 06/22/19 Blood Culture - Final, Complete NO GROWTH AFTER 5 DAYS Medications Current Medications Vancomycin HCl 250 ml @ 250 mls/hr 1X ONCE IV ; Start 06/22/19 at 10:45; Stop 06/22/19 at 11:44; Status UNV Piperacillin Sod/ Tazobactam Sod 2.25 gm/Sodium Chloride 50 ml @ 100 mls/hr 1X ONCE IV Last administered on 06/22/19at 11:55; Start 06/22/19 at 10:45; Stop 06/22/19 at 11:14; Status DC Sodium Chloride 1,000 ml @ 100 mls/hr Q10H IV Last administered on 06/22/19at 11:55; Start 06/22/19 at 10:38; Stop 06/22/19 at 20:37; Status DC Vancomycin HCl 2 gm/Sodium Chloride 500 ml @ 250 mls/hr 1X ONCE IV Last administered on 06/22/19at 12:32; Start 06/22/19 at 11:30; Stop 06/22/19 at 13:29; Status DC Info (PHARMACY MONITORING -- do not chart) 1 each PRN DAILY PRN MC SEE COMMENTS; Start 06/22/19 at 16:30; Stop 06/24/19 at 11:38; Status DC Info (PHARMACY MONITORING -- do not chart) 1 each PRN DAILY PRN MC SEE COMMENTS; Start 06/22/19 at 16:30; Status UNV Sodium Chloride 1,000 ml @ 40 mls/hr Q24H IV Last administered on 06/24/19at 18:31; Start 06/22/19 at 17:30; Stop 06/25/19 at 19:44; Status DC Vancomycin HCl (Vanco Per Pharmacy) 1 each PRN DAILY PRN MC SEE COMMENTS Last administered on 06/27/19at 15:26; Start 06/22/19 at 17:30 Piperacillin Sod/ Tazobactam Sod (Zosyn Per Pharmacy) 1 each PRN DAILY PRN MC SEE COMMENTS; Start 06/22/19 at 17:30 Acetaminophen (Tylenol) 650 mg PRN Q6HRS PRN PO MILD PAIN / TEMP; Start 06/22/19 at 17:30; Stop 06/25/19 at 18:15; Status DC Ondansetron HCl (Zofran) 4 mg PRN Q6HRS PRN IV NAUSEA/VOMITING; Start 06/22/19 at 17:30 Clopidogrel Bisulfate (Plavix) 75 mg DAILYWBKFT PO Last administered on 06/28/19at 11:02; Start 06/23/19 at 08:00 Vitamin B Complex/ Vitamin C (Carlos-Moses) 1 tab DAILY PO Last administered on 06/28/19at 11:02; Start 06/23/19 at 09:00 Allopurinol (Zyloprim) 100 mg DAILY PO ; Start 06/23/19 at 09:00; Stop 06/25/19 at 18:17; Status DC Atorvastatin Calcium (Lipitor) 40 mg QHS PO Last administered on 06/22/19at 21:37; Start 06/22/19 at 21:00; Stop 06/25/19 at 12:19; Status DC Pantoprazole Sodium (Protonix) 40 mg DAILYAC PO Last administered on 06/28/19at 11:02; Start 06/23/19 at 07:30 Cyanocobalamin (Vitamin B-12) 1,000 mcg DAILY PO Last administered on 06/28/19 11:02; Start 06/23/19 at 09:00 Piperacillin Sod/ Tazobactam Sod 2.25 gm/Sodium Chloride 50 ml @ 100 mls/hr Q8HRS IV Last administered on 06/28/19at 10:55; Start 06/22/19 at 21:00 Heparin Sodium (Porcine) (Heparin Sodium) 5,000 unit BID SQ Last administered on 06/22/19at 21:37; Start 06/22/19 at 21:00; Stop 06/23/19 at 08:23; Status DC Insulin Human Lispro (HumaLOG) 0-6 UNITS BG 400-49... TIDWMEALS SQ Last administered on 06/27/19at 13:04; Start 06/23/19 at 08:00 Vancomycin HCl (Vancomycin Random Level) 1 each 1X ONCE MC Last administered on 06/24/19at 06:37; Start 06/24/19 at 06:00; Stop 06/24/19 at 06:01; Status DC Heparin Sodium/ Dextrose 500 ml @ 19.3 mls/hr CONT PRN IV SEE I/O RECORD; Start 06/23/19 at 08:30; Stop 06/23/19 at 14:53; Status DC Heparin Sodium (Porcine) (Heparin Sodium) 2,000 unit PRN Q6HRS PRN IV FOR UFH LEVEL LESS THAN 0.2; Start 06/23/19 at 08:30; Stop 06/23/19 at 14:53; Status DC Aspirin (Ecotrin) 325 mg 1X ONCE PO ; Start 06/23/19 at 10:30; Stop 06/23/19 at 10:31; Status DC Aspirin (Ecotrin) 81 mg DAILYWBKFT PO ; Start 06/24/19 at 08:00; Stop 06/25/19 at 18:16; Status DC Ondansetron HCl (Zofran) 4 mg PRN Q6HRS PRN IV NAUSEA/VOMITING; Start 06/24/19 at 07:00; Stop 06/25/19 at 06:59; Status DC Morphine Sulfate (Morphine Sulfate) 1 mg PRN Q10MIN PRN IV SEVERE PAIN 7-10; Start 06/24/19 at 07:00; Stop 06/24/19 at 10:06; Status DC Ringer's Solution 1,000 ml @ 30 mls/hr Q24H IV ; Start 06/24/19 at 07:00; Stop 06/24/19 at 18:59; Status DC Lidocaine HCl (Xylocaine-Mpf 1% 2ml Vial) 2 ml PRN 1X PRN ID PRIOR TO IV START; Start 06/24/19 at 07:00; Stop 06/25/19 at 06:59; Status DC Hydromorphone HCl (Dilaudid) 0.5 mg PRN Q10MIN PRN IV SEV PAIN, Second choice; Start 06/24/19 at 07:00; Stop 06/24/19 at 10:06; Status DC Info (Anti-Coagulation Monitoring By Pharmacy) 1 each PRN DAILY PRN MC SEE COMMENTS Last administered on 06/25/19at 16:28; Start 06/23/19 at 14:30 Enoxaparin Sodium (Lovenox Per Pharmacy Treatment Dosing) 1 each 1X PRN MC SEE COMMENTS; Start 06/23/19 at 14:45; Stop 06/23/19 at 21:00; Status DC Enoxaparin Sodium (Lovenox 80mg Syringe) 80 mg 1X ONCE SQ Last administered on 06/23/19at 15:16; Start 06/23/19 at 15:30; Stop 06/23/19 at 15:31; Status DC Heparin Sodium (Porcine) (Heparin Sodium) 5,000 unit Q12HR SQ Last administered on 06/28/19at 11:02; Start 06/24/19 at 11:00 Acetaminophen (Tylenol Supp) 650 mg PRN Q6HRS PRN [place] MILD PAIN / TEMP Last administered on 06/24/19at 23:03; Start 06/24/19 at 10:30 Tramadol HCl (Ultram) 25 mg PRN Q6HRS PRN PO PAIN MODERATE PAIN Last administered on 06/27/19at 09:05; Start 06/24/19 at 10:30 Ketorolac Tromethamine (Toradol 15mg Vial) 15 mg PRN Q6HRS PRN IV PAIN Last administered on 06/27/19at 08:58; Start 06/24/19 at 10:30; Stop 06/29/19 at 10:29 Sodium Chloride 1,000 ml @ 1,000 mls/hr Q1H PRN IV hypotension; Start 06/24/19 at 11:27; Stop 06/24/19 at 17:26; Status DC Sodium Chloride 1,000 ml @ 400 mls/hr Q2H30M PRN IV PATENCY; Start 06/24/19 at 11:27; Stop 06/24/19 at 23:26; Status DC Info (PHARMACY MONITORING -- do not chart) 1 each PRN DAILY PRN MC SEE COMMENTS; Start 06/24/19 at 11:30 Info (PHARMACY MONITORING -- do not chart) 1 each PRN DAILY PRN MC SEE COMMENTS; Start 06/24/19 at 11:30; Status UNV Vancomycin HCl 500 mg/Sodium Chloride 100 ml @ 100 mls/hr QMWF IV Last administered on 06/26/19at 18:12; Start 06/24/19 at 16:00 Dextrose (Dextrose 50%-Water Syringe) 12.5 gm PRN Q15MIN PRN IV SEE COMMENTS Last administered on 06/25/19at 01:41; Start 06/25/19 at 01:30 Dextrose 250 ml PRN Q15MIN PRN IV SEE COMMENTS; Start 06/25/19 at 01:30 Micafungin Sodium 100 mg/Dextrose 100 ml @ 100 mls/hr Q24H IV Last administered on 06/28/19at 11:02; Start 06/25/19 at 09:00 Metoprolol Tartrate (Lopressor Vial) 2.5 mg Q6HRS IVP Last administered on 06/27/19at 17:59; Start 06/25/19 at 18:00 Atorvastatin Calcium (Lipitor) 10 mg QHS PEG Last administered on 06/27/19at 22: 03; Start 06/25/19 at 21:00 Ondansetron HCl (Zofran) 4 mg PRN Q6HRS PRN IV NAUSEA/VOMITING; Start 06/26/19 at 07:00; Stop 06/27/19 at 06:59; Status DC Morphine Sulfate (Morphine Sulfate) 1 mg PRN Q10MIN PRN IV SEVERE PAIN 7-10; Start 06/26/19 at 07:00; Stop 06/27/19 at 06:59; Status DC Ringer's Solution 1,000 ml @ 30 mls/hr Q24H IV ; Start 06/26/19 at 07:00; Stop 06/26/19 at 18:59; Status DC Lidocaine HCl (Xylocaine-Mpf 1% 2ml Vial) 2 ml PRN 1X PRN ID PRIOR TO IV START; Start 06/26/19 at 07:00; Stop 06/27/19 at 06:59; Status DC Hydromorphone HCl (Dilaudid) 0.5 mg PRN Q10MIN PRN IV SEV PAIN, Second choice; Start 06/26/19 at 07:00; Stop 06/27/19 at 06:59; Status DC Acetaminophen (Tylenol) 650 mg PRN Q6HRS PRN PEG MILD PAIN / TEMP Last administered on 06/25/19at 22:23; Start 06/25/19 at 18:15 Aspirin (Children'S Aspirin) 81 mg DAILYWBKFT PEG Last administered on 06/28/19at 11:02; Start 06/26/19 at 08:00 Allopurinol (Zyloprim) 100 mg DAILY PEG Last administered on 06/28/19at 11:02; Start 06/25/19 at 18:17 Quetiapine Fumarate (SEROquel) 12.5 mg PRN Q8HRS PRN PO PSYCHOTIC BEHAVIOR Last administered on 06/28/19at 11:02; Start 06/25/19 at 19:45 Vitamin A/Vitamin D (Vitamin A & D Ointment) 1 héctor PRN BID PRN TP SKIN PROTECTION Last administered on 06/26/19at 12:44; Start 06/26/19 at 06:00 Sodium Chloride 1,000 ml @ 1,000 mls/hr Q1H PRN IV hypotension; Start 06/26/19 at 12:41; Stop 06/26/19 at 18:40; Status DC Info (PHARMACY MONITORING -- do not chart) 1 each PRN DAILY PRN MC SEE COMMENTS; Start 06/26/19 at 12:45; Status UNV Info (PHARMACY MONITORING -- do not chart) 1 each PRN DAILY PRN MC SEE COMMENTS; Start 06/26/19 at 12:45 Active Scripts [place] 5-325 Tablet (Acetaminophen/Hydrocodone Bitart) 1 Each Tablet 0.5 Tab PO Q4HRS Zyvox (Linezolid) 600 Mg Tablet 600 Mg PO BID 4 Days Amox Tr-K Clv 500-125 Mg Tab (Amoxicillin/Potassium Clav) 1 Each Tablet 1 Tab PO DAILY 4 Days Tramadol Hcl 50 Mg Tablet 50 Mg PO PRN Q6HRS PRN Ondansetron Odt (Ondansetron) 4 Mg Tab.rapdis 4 Mg PO Q6HRS PRN Humalog (Insulin Lispro) 100 Unit/1 Ml Insuln.pen 0 Units SQ TIDWMEALS 30 Days BG 150-199= 1 units 200-299= 2 units 300-399= 4 units 400-499= 6 units ac tid sliding scale Reported Omeprazole 20 Mg Tablet.dr 1 Tab PO DAILY Vitamin D3 (Cholecalciferol (Vitamin D3)) 1,000 Unit Tablet 1 Tab PO DAILY Vitamin B-12 (Cyanocobalamin (Vitamin B-12)) 1,000 Mcg Tablet 1 Tab PO DAILY Senna (Sennosides) 8.6 Mg Tablet 8.6 Mg PO PRN DAILY PRN 2 tabs Renvela (Sevelamer Carbonate) 800 Mg Tablet 800 Mg PO TIDWMEALS Renal Caps Softgel (Folic Acid/Vitamin B Comp W-C) 1 Mg Capsule 1 Mg PO DAILY Reglan (Metoclopramide Hcl) 10 Mg Tablet 5 Mg PO TID Probiotic (Lactobacillus Acidophilus) 1 Each Capsule 1 Each PO BID Milk Of Magnesia (Magnesium Hydroxide) 400 Mg/5 Ml Oral.susp 400 Mg PO PRN DAILY PRN Lipitor (Atorvastatin Calcium) 40 Mg Tablet 1 Tab PO QHS Humalog (Insulin Lispro) 100 Unit/1 Ml Insuln.pen 100 Unit SQ TIDBFRMEAL 150-199=1 unit 200-299=2 units 300-399=4 units 100-499=6 units Clopidogrel (Clopidogrel Bisulfate) 75 Mg Tablet 1 Tab PO DAILY Duoneb 0.5-3(2.5) Mg/3 Ml (Albuterol/Ipratropium) 3 Ml Ampul.neb 3 Ml NEB PRN Q4HRS PRN Lac-Hydrin Five (Ammonium Lactate) 226 Gm Lotion 226 Gm TP BID Allopurinol 100 Mg Tablet 1 Tab PO DAILY Tylenol (Acetaminophen) 325 Mg Tablet 1 Tab PO PRN Q4HRS Aspirin 81 Mg Tab.chew 81 Mg PO DAILY Vitals/I & O Vital Sign - Last 24 Hours 06/27/19 06/27/19 06/27/19 06/27/19 12:09 15:00 17:59 19:15 Temp 98.2 97.7 98.2 97.7 Pulse 66 75 75 77 Resp 20 21 B/P (MAP) 95/54 100/60 (73) 100/60 131/91 (104) Pulse Ox 95 95 O2 Delivery Room Air Room Air 06/27/19 06/28/19 06/28/19 06/28/19 23:38 03:30 07:00 08:00 Temp 98.1 98.0 98.3 98.1 98.0 98.3 Pulse 90 101 84 Resp 26 22 24 B/P (MAP) 94/52 (66) 134/72 (92) 118/57 (77) Pulse Ox 96 95 93 O2 Delivery Room Air Room Air Room Air Room Air 06/28/19 10:55 Pulse 84 B/P (MAP) 118/57 Intake and Output 06/27/19 06/27/19 06/28/19 14:59 22:59 06:59 Intake Total 640 ml 400 ml Output Total 20 ml 40 ml Balance 640 ml 380 ml -40 ml Nutrition Consultation Dietary Evaluation: Recommendations by RD: Increase Calorie Intake, Protein supplementation Comments: REC continue increasing TF rate 10 ml q8 hrs as tolerated to goal of Nepro@goal rate 40 ml/hr w/150 ml water flushes q6 hrs per MD REC Marcell BID via feeding tube, mix each packet w/4 oz water to dissolve, flush tube w/30 ml water before and after each packet - dietary aware Continue w/carlos-moses for additional vitamin needs for skin healing Expected Outcomes/Goals: TF intiation/infusion to meet >75% est needs - not met, goal ongoing Malnutrition Findings: Food and Nutrition Intake (Sev: <50% est energy req 5days Weight Status: Appropriate SAM OLMOS MD Jun 28, 2019 11:24
[2019-06-28] MEDS: VANCOMYCIN PER PHARMACY MC PRN (12:25)
--- NOTE | 2019-06-28 12:41 | PDOC ---
Renal-Progress Notes Subjective Notes Notes REMAINS LETHARGIC History of Present Illness Hx of present illness STABLE Vitals Vitals Vital Signs Date Time Temp Pulse Resp B/P (MAP) Pulse Ox O2 Delivery O2 Flow Rate FiO2 06/28/19 11:00 97.9 68 24 86/49 (61) 95 Room Air 97.9 Weight Weight [ ] I.O. Intake and Output Intake and Output 06/28/19 07:00 Intake Total 1040 ml Output Total 60 ml Balance 980 ml Tube Feeding 1040 ml Output Urine Total 60 ml # Bowel Movements 1 Labs Labs Laboratory Tests Test 06/27/19 17:58 06/28/19 04:00 06/28/19 11:41 Glucose (Fingerstick) 169 mg/dL (70-99) 189 mg/dL (70-99) White Blood Count 14.3 x10^3/uL (4.0-11.0) Red Blood Count 3.73 x10^6/uL (4.30-5.70) Hemoglobin 10.4 g/dL (13.0-17.5) Hematocrit 32.8 % (39.0-53.0) Mean Corpuscular Volume 88 fL (79-100) Mean Corpuscular Hemoglobin 28 pg (25-35) Mean Corpuscular Hemoglobin Concent 32 g/dL (31-37) Red Cell Distribution Width 18.4 % (11.5-14.5) Platelet Count 453 x10^3/uL (140-400) Micro Micro Microbiology 06/22/19 Urine Culture - Final, Complete 06/22/19 Urine Culture Result 1 (TEREZA) - Final, Complete 06/22/19 Blood Culture - Final, Complete NO GROWTH AFTER 5 DAYS Review of Systems Constitutional: yes: other (CONFUSED) Physical Exam General Appearance: no apparent distress Skin: warm Respiratory: bilateral CTA Heart: S1S2 Abdomen: soft, bowel sounds present Genitourinary: bladder flat Extremities: pulses present Neurology: alert, follow commands, other (oriented to self) Assessment Assessment IMP UTI ? INFECTED BKA STUMP ANEMIA DM II HTN ESRD MET ENCEPHALOPATHY DYSPHAGIA PLAN CONT ANTIBIOTICS WOUND CARE HD TOMORROW CBI UROLOGY FOLLOWING CONT TF FOR NOW D/W NANCY EMMANUEL MD Jun 28, 2019 12:40
[2019-06-28] MEDS: KETOROLAC 15 MG/ML VIAL. IV PRN (16:59)
[2019-06-28] MEDS: traMADol 50 MG TABLET PO PRN (16:59)
[2019-06-28] MEDS: ATORVASTATIN CALCIUM 10 MG TABLET. PEG SCH (20:07)
[2019-06-29 00:11] VITALS: BP 98/53
[2019-06-29] MEDS: PIPERACILLIN/TAZOBACTAM 2.25 GM in IV NORMAL SALINE 50ML 50 ML IV SCH ×4 (02:56→22:00)
[2019-06-29 03:02] VITALS: BP 103/55
[2019-06-29 07:00] VITALS: BP 95/51
[2019-06-29] MEDS: INSULIN LISPRO 300 UNITS/3 ML VIAL. SQ SCH ×3 (08:00→17:00)
[2019-06-29] MEDS: PANTOPRAZOLE 40 MG TABLET.DR. PO SCH (08:06)
[2019-06-29] MEDS: FOLIC/VIT B COMP W-C (RENAL) TABLET. PO SCH (08:06)
[2019-06-29] MEDS: ACETAMINOPHEN 650 MG/20.3 ML SOLUTION. PEG PRN (08:06)
[2019-06-29] MEDS: ASPIRIN CHEWABLE 81 MG TABLET. PEG SCH (08:06)
[2019-06-29] MEDS: CLOPIDOGREL BISULFATE 75 MG TABLET PO SCH (08:06)
[2019-06-29] MEDS: CYANOCOBALAMIN (VITAMIN B-12) 1,000 MCG TABLET. PO SCH (08:06)
[2019-06-29] MEDS: ALLOPURINOL 100 MG TABLET. PEG SCH (08:06)
[2019-06-29] MEDS: MICAFUNGIN 100 MG in IV DEXTROSE 5% 100ML 100 ML IV SCH (08:07)
[2019-06-29] MEDS: HEPARIN for SUB-Q USE 5,000 UNIT/ML VIAL. SQ SCH ×2 (08:13→21:43)
--- NOTE | 2019-06-29 09:07 | PDOC ---
Infectious Disease Note Subjective Subjective pt is sleepy, awakens - confused more calm today no fevers or chills has some loose bm had some residuals last night, no vomiting d/w rn Vital Sign Vital Signs Vital Signs Date Time Temp Pulse Resp B/P (MAP) Pulse Ox O2 Delivery O2 Flow Rate FiO2 06/29/19 03:02 98.3 62 18 103/55 (71) 100 Room Air 98.3 Physical Exam PHYSICAL EXAM GENERAL: Awakens easily. opens eyes when I called out his name, appears comfortable. No icterus. HEENT NGT + no th kimball, oral mucosa dry NECK: Supple. HEART: S1, S2. LUNGS: Clear bilaterally. ABDOMEN: Soft, nontender, obese. Bowel sounds present. yeast in groin EXTREMITIES: Right below knee amputation, scar healthy, left lower extremity amputation stump has a wound with a necrotic area. No bony exposure. No bogginess, excoriation bilateral groin. Right upper extremity AV fistula site looks okay. BACK: Has a superficial stage 1 sacral wound, I was not able to examine as the patient is being transferred to the second floor. No generalized rash, dry skin. LEGAL ANALYST: Moves upper extremity, answers a few questions, follows a few commands. Labs Lab Laboratory Tests Test 06/28/19 11:41 06/28/19 17:04 06/29/19 08:23 Glucose (Fingerstick) 189 mg/dL (70-99) 117 mg/dL (70-99) 197 mg/dL (70-99) Micro Microbiology 06/23/19 Urine Culture - Final, Complete 06/23/19 Urine Culture Result 1 (TEREZA) - Final, Complete 06/22/19 Blood Culture - Final, Complete NO GROWTH AFTER 5 DAYS Objective Assessment 1. Urinary tract infection. No leukocyte esterase or nitrite done. Not done again on repeat UA 06/24. urine had pus like appearance when allan placement was attem pted, yeast on uc likely colonization allan now in place 2. Altered mental status, likely multifactorial, improving. CT head negative. 3. 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 End-stage renal disease, on hemodialysis. 5. Low-grade fevers. 6. leukocytosis 7. Anemia of chronic disease. 8. Severe protein-calorie malnutrition. 9. Chronic atrial fibrillation. 10. High troponin with working diagnosis of non-STEMI. 11. Chronic sacral wound, superficial. 12. Yeast in groin 13. Dysphagia on ngt Plan Plan of Care - Continue Vanc,Zosyn, renal dosing -micafungin - check c diff pcr - f/u c/s and labs pending today -Vascular Surgery planning for I and D on Mon - Continue local wound care. - Continue supportive care. - palliative consulted Discussed with RN. ABIODUN BAPTISTE MD Jun 29, 2019 09:07
--- NOTE | 2019-06-29 09:26 | PDOC ---
SUBJECTIVE Subjective Pt not answering questions OBJECTIVE Objective D/w RN at bedside, minimal urine output Physical Exam: NAD, doesn't answer questions Breathing unlabored Abdomen nondistended, appears nontender on exam : allan in place, scant dark urine in tubing and bag Vital Signs Vital Signs Date Time Temp Pulse Resp B/P (MAP) Pulse Ox O2 Delivery O2 Flow Rate FiO2 06/29/19 03:02 98.3 62 18 103/55 (71) 100 Room Air 98.3 06/29/19 00:11 98.4 63 18 98/53 (68) 99 Room Air 98.4 06/28/19 23:00 98.4 63 18 98/53 (68) 99 Room Air 98.4 06/28/19 20:45 98.9 65 16 97/52 (67) Room Air 98.9 06/28/19 20:00 Room Air 06/28/19 19:00 98.9 63 16 97/52 (67) 100 Room Air 98.9 06/28/19 18:02 95 Room Air 06/28/19 17:19 20 95 Room Air 06/28/19 15:00 97.5 65 24 121/61 (81) 95 Room Air 97.5 06/28/19 11:00 97.9 68 24 86/49 (61) 95 Room Air 97.9 06/28/19 10:55 84 118/57 I & O Intake and Output 06/29/19 06:59 Intake Total 1630 ml Output Total 60 ml Balance 1570 ml Tube Feeding 1630 ml Output Urine Total 60 ml # Bowel Movements 1 ASSESSMENT/PLAN Assessment/Plan Pyocystitis, urine culture grew yeast on micafungin per ID Palliative care to see pt continue sanjana, [place] before discharge COMMENT Lab Laboratory Tests Test 06/28/19 11:41 06/28/19 17:04 06/29/19 08:23 Glucose (Fingerstick) 189 mg/dL (70-99) 117 mg/dL (70-99) 197 mg/dL (70-99) Nutrition Consultation Dietary Evaluation: Recommendations by RD: Increase Calorie Intake, Protein supplementation Comments: REC continue increasing TF rate 10 ml q8 hrs as tolerated to goal of Nepro@goal rate 40 ml/hr w/150 ml water flushes q6 hrs per REC Marcell BID via feeding tube, mix each packet w/4 oz water to dissolve, flush tube w/30 ml water before and after each packet - dietary aware Continue w/carlos-moses for additional vitamin needs for skin healing Expected Outcomes/Goals: TF intiation/infusion to meet >75% est needs - not met, goal ongoing Malnutrition Findings: Food and Nutrition Intake (Sev: <50% est energy req 5days Weight Status: Appropriate OC SPARROW Jun 29, 2019 09:26
--- NOTE | 2019-06-29 09:34 | PDOC ---
PROGRESS NOTES Assessment Problems Medical Problems: (1) Altered mental status Status: Acute (2) Anemia in chronic illness Status: Chronic (3) CAD (coronary artery disease) Status: Chronic (4) Chronic a-fib Status: Chronic (5) DM2 (diabetes mellitus, type 2) Status: Chronic (6) ESRD (end stage renal disease) Status: Acute (7) HTN (hypertension) Status: Chronic (8) Metabolic encephalopathy Status: Acute (9) NSTEMI (non-ST elevated myocardial infarction) Status: Acute (10) Paroxysmal A-fib Status: Acute (11) Peripheral artery disease Status: Chronic (12) Severe protein-calorie malnutrition Status: Chronic (13) SSS (sick sinus syndrome) Status: Chronic (14) UTI (urinary tract infection) Status: Acute Metabolic encephalopathy with probable underlying dementia, related to urinary tract infection and leg wounds, no evidence of primary central nervous system infection, new stroke, or ongoing seizure activity. Has NSTEMI. MRI negative for acute stroke. He is declining Note that he has elevated troponin and ESR Note failed swallow study, Dobhoff placed Plan Palliative care consult Treat medical diseases Subjective none Objective Vital Signs Date Time Temp Pulse Resp B/P (MAP) Pulse Ox O2 Delivery O2 Flow Rate FiO2 06/29/19 07:00 98.7 84 20 95/51 (66) 100 Room Air 98.7 Intake and Output 06/29/19 06:59 Intake Total 1630 ml Output Total 60 ml Balance 1570 ml Tube Feeding 1630 ml Output Urine Total 60 ml # Bowel Movements 1 PHYSICAL EXAM Somnolent, rouses slightly to voice PERRL. EOMI. CN: no focal findings. Muscle tone: normal. Muscle strength: 4/5 DTR: 0-1+ Plantar reflex: Bilateral below the knee amputations Gait: not examined in bed. Sensory exam: no abnormal findings. No cerebellar signs elicited. Review of Relevant I have reviewed the following items soumya (where applicable) has been applied. Labs Laboratory Tests Test 06/27/19 12:20 06/27/19 17:58 06/28/19 04:00 06/28/19 11:41 Glucose (Fingerstick) 221 mg/dL (70-99) 169 mg/dL (70-99) 189 mg/dL (70-99) White Blood Count 14.3 x10^3/uL (4.0-11.0) Red Blood Count 3.73 x10^6/uL (4.30-5.70) Hemoglobin 10.4 g/dL (13.0-17.5) Hematocrit 32.8 % (39.0-53.0) Mean Corpuscular Volume 88 fL (79-100) Mean Corpuscular Hemoglobin 28 pg (25-35) Mean Corpuscular Hemoglobin Concent 32 g/dL (31-37) Red Cell Distribution Width 18.4 % (11.5-14.5) Platelet Count 453 x10^3/uL (140-400) Test 06/28/19 17:04 06/29/19 08:23 Glucose (Fingerstick) 117 mg/dL (70-99) 197 mg/dL (70-99) Laboratory Tests Test 06/28/19 11:41 06/28/19 17:04 06/29/19 08:23 Glucose (Fingerstick) 189 mg/dL (70-99) 117 mg/dL (70-99) 197 mg/dL (70-99) Microbiology 06/23/19 Urine Culture - Final, Complete 06/23/19 Urine Culture Result 1 (TEREZA) - Final, Complete 06/22/19 Blood Culture - Final, Complete NO GROWTH AFTER 5 DAYS Medications Current Medications Vancomycin HCl 250 ml @ 250 mls/hr 1X ONCE IV ; Start 06/22/19 at 10:45; Stop 06/22/19 at 11:44; Status UNV Piperacillin Sod/ Tazobactam Sod 2.25 gm/Sodium Chloride 50 ml @ 100 mls/hr 1X ONCE IV Last administered on 06/22/19at 11:55; Start 06/22/19 at 10:45; Stop 06/22/19 at 11:14; Status DC Sodium Chloride 1,000 ml @ 100 mls/hr Q10H IV Last administered on 06/22/19at 11:55; Start 06/22/19 at 10:38; Stop 06/22/19 at 20:37; Status DC Vancomycin HCl 2 gm/Sodium Chloride 500 ml @ 250 mls/hr 1X ONCE IV Last ad ministered on 06/22/19at 12:32; Start 06/22/19 at 11:30; Stop 06/22/19 at 13:29; Status DC Info (PHARMACY MONITORING -- do not chart) 1 each PRN DAILY PRN MC SEE COMMENTS; Start 06/22/19 at 16:30; Stop 06/24/19 at 11:38; Status DC Info (PHARMACY MONITORING -- do not chart) 1 each PRN DAILY PRN MC SEE COMMENTS; Start 06/22/19 at 16:30; Status UNV Sodium Chloride 1,000 ml @ 40 mls/hr Q24H IV Last administered on 06/24/19at 18:31; Start 06/22/19 at 17:30; Stop 06/25/19 at 19:44; Status DC Vancomycin HCl (Vanco Per Pharmacy) 1 each PRN DAILY PRN MC SEE COMMENTS Last administered on 06/28/19at 12:25; Start 06/22/19 at 17:30 Piperacillin Sod/ Tazobactam Sod (Zosyn Per Pharmacy) 1 each PRN DAILY PRN MC SEE COMMENTS; Start 06/22/19 at 17:30 Acetaminophen (Tylenol) 650 mg PRN Q6HRS PRN PO MILD PAIN / TEMP; Start 06/22/19 at 17:30; Stop 06/25/19 at 18:15; Status DC Ondansetron HCl (Zofran) 4 mg PRN Q6HRS PRN IV NAUSEA/VOMITING; Start 06/22/19 at 17:30 Clopidogrel Bisulfate (Plavix) 75 mg DAILYWBKFT PO Last administered on 06/29/19at 08:16; Start 06/23/19 at 08:00 Vitamin B Complex/ Vitamin C (Rosalie-Judah) 1 tab DAILY PO Last administered on 06/29/19at 08:16; Start 06/23/19 at 09:00 Allopurinol (Zyloprim) 100 mg DAILY PO ; Start 06/23/19 at 09:00; Stop 06/25/19 at 18:17; Status DC Atorvastatin Calcium (Lipitor) 40 mg QHS PO Last administered on 06/22/19at 21:37; Start 06/22/19 at 21:00; Stop 06/25/19 at 12:19; Status DC Pantoprazole Sodium (Protonix) 40 mg DAILYAC PO Last administered on 06/29/19at 08:16; Start 06/23/19 at 07:30 Cyanocobalamin (Vitamin B-12) 1,000 mcg DAILY PO Last administered on 06/29/19at 08:16; Start 06/23/19 at 09:00 Piperacillin Sod/ Tazobactam Sod 2.25 gm/Sodium Chloride 50 ml @ 100 mls/hr Q8HRS IV Last administered on 06/29/19at 02:56; Start 06/22/19 at 21:00 Heparin Sodium (Porcine) (Heparin Sodium) 5,000 unit BID SQ Last administered on 06/22/19at 21:37; Start 06/22/19 at 21:00; Stop 06/23/19 at 08:23; Status DC Insulin Human Lispro (HumaLOG) 0-6 UNITS BG 400-49... TIDWMEALS SQ Last administered on 06/27/19at 13:04; Start 06/23/19 at 08:00 Vancomycin HCl (Vancomycin Random Level) 1 each 1X ONCE MC Last administered on 06/24/19at 06:37; Start 06/24/19 at 06:00; Stop 06/24/19 at 06:01; Status DC Heparin Sodium/ Dextrose 500 ml @ 19.3 mls/hr CONT PRN IV SEE I/O RECORD; Start 06/23/19 at 08:30; Stop 06/23/19 at 14:53; Status DC Heparin Sodium (Porcine) (Heparin Sodium) 2,000 unit PRN Q6HRS PRN IV FOR UFH LEVEL LESS THAN 0.2; Start 06/23/19 at 08:30; Stop 06/23/19 at 14:53; Status DC Aspirin (Ecotrin) 325 mg 1X ONCE PO ; Start 06/23/19 at 10:30; Stop 06/23/19 at 10:31; Status DC Aspirin (Ecotrin) 81 mg DAILYWBKFT PO ; Start 06/24/19 at 08:00; Stop 06/25/19 at 18:16; Status DC Ondansetron HCl (Zofran) 4 mg PRN Q6HRS PRN IV NAUSEA/VOMITING; Start 06/24/19 at 07:00; Stop 06/25/19 at 06:59; Status DC Morphine Sulfate (Morphine Sulfate) 1 mg PRN Q10MIN PRN IV SEVERE PAIN 7-10; Start 06/24/19 at 07:00; Stop 06/24/19 at 10:06; Status DC Ringer's Solution 1,000 ml @ 30 mls/hr Q24H IV ; Start 06/24/19 at 07:00; Stop 06/24/19 at 18:59; Status DC Lidocaine HCl (Xylocaine-Mpf 1% 2ml Vial) 2 ml PRN 1X PRN ID PRIOR TO IV START; Start 06/24/19 at 07:00; Stop 06/25/19 at 06:59; Status DC Hydromorphone HCl (Dilaudid) 0.5 mg PRN Q10MIN PRN IV SEV PAIN, Second choice; Start 06/24/19 at 07:00; Stop 06/24/19 at 10:06; Status DC Info (Anti-Coagulation Monitoring By Pharmacy) 1 each PRN DAILY PRN MC SEE COMMENTS Last administered on 06/25/19at 16:28; Start 06/23/19 at 14:30 Enoxaparin Sodium (Lovenox Per Pharmacy Treatment Dosing) 1 each 1X PRN MC SEE COMMENTS; Start 06/23/19 at 14:45; Stop 06/23/19 at 21:00; Status DC Enoxaparin Sodium (Lovenox 80mg Syringe) 80 mg 1X ONCE SQ Last administered on 06/23/19at 15:16; Start 06/23/19 at 15:30; Stop 06/23/19 at 15:31; Status DC Heparin Sodium (Porcine) (Heparin Sodium) 5,000 unit Q12HR SQ Last administered on 06/29/19at 08:16; Start 06/24/19 at 11:00 Acetaminophen (Tylenol Supp) 650 mg PRN Q6HRS PRN [place] MILD PAIN / TEMP Last administered on 06/24/19at 23:03; Start 06/24/19 at 10:30; Stop 06/28/19 at 11:19; Status DC Tramadol HCl (Ultram) 25 mg PRN Q6HRS PRN PO PAIN MODERATE PAIN Last administ ered on 06/28/19at 17:19; Start 06/24/19 at 10:30 Ketorolac Tromethamine (Toradol 15mg Vial) 15 mg PRN Q6HRS PRN IV PAIN Last ad ministered on 06/28/19at 17:19; Start 06/24/19 at 10:30; Stop 06/29/19 at 10:29 Sodium Chloride 1,000 ml @ 1,000 mls/hr Q1H PRN IV hypotension; Start 06/24/19 at 11:27; Stop 06/24/19 at 17:26; Status DC Sodium Chloride 1,000 ml @ 400 mls/hr Q2H30M PRN IV PATENCY; Start 06/24/19 at 11:27; Stop 06/24/19 at 23:26; Status DC Info (PHARMACY MONITORING -- do not chart) 1 each PRN DAILY PRN MC SEE COMMENTS; Start 06/24/19 at 11:30 Info (PHARMACY MONITORING -- do not chart) 1 each PRN DAILY PRN MC SEE COMMENTS ; Start 06/24/19 at 11:30; Status UNV Vancomycin HCl 500 mg/Sodium Chloride 100 ml @ 100 mls/hr QMWF IV Last administered on 06/26/19at 18:12; Start 06/24/19 at 16:00 Dextrose (Dextrose 50%-Water Syringe) 12.5 gm PRN Q15MIN PRN IV SEE COMMENTS Last administered on 06/25/19at 01:41; Start 06/25/19 at 01:30 Dextrose 250 ml PRN Q15MIN PRN IV SEE COMMENTS; Start 06/25/19 at 01:30 Micafungin Sodium 100 mg/Dextrose 100 ml @ 100 mls/hr Q24H IV Last administered on 06/29/19at 08:16; Start 06/25/19 at 09:00 Metoprolol Tartrate (Lopressor Vial) 2.5 mg Q6HRS IVP Last administered on 06/27/19at 17:59; Start 06/25/19 at 18:00; Stop 06/28/19 at 11:19; Status DC Atorvastatin Calcium (Lipitor) 10 mg QHS PEG Last administered on 06/28/19at 20:07; Start 06/25/19 at 21:00 Ondansetron HCl (Zofran) 4 mg PRN Q6HRS PRN IV NAUSEA/VOMITING; Start 06/26/19 at 07:00; Stop 06/27/19 at 06:59; Status DC Morphine Sulfate (Morphine Sulfate) 1 mg PRN Q10MIN PRN IV SEVERE PAIN 7-10; Start 06/26/19 at 07:00; Stop 06/27/19 at 06:59; Status DC Ringer's Solution 1,000 ml @ 30 mls/hr Q24H IV ; Start 06/26/19 at 07:00; Stop 06/26/19 at 18:59; Status DC Lidocaine HCl (Xylocaine-Mpf 1% 2ml Vial) 2 ml PRN 1X PRN ID PRIOR TO IV START; Start 06/26/19 at 07:00; Stop 06/27/19 at 06:59; Status DC Hydromorphone HCl (Dilaudid) 0.5 mg PRN Q10MIN PRN IV SEV PAIN, Second choice; Start 06/26/19 at 07:00; Stop 06/27/19 at 06:59; Status DC Acetaminophen (Tylenol) 650 mg PRN Q6HRS PRN PEG MILD PAIN / TEMP Last administered on 06/29/19at 08:16; Start 06/25/19 at 18:15 Aspirin (Children'S Aspirin) 81 mg DAILYWBKFT PEG Last administered on 06/29/19at 08:16; Start 06/26/19 at 08:00 Allopurinol (Zyloprim) 100 mg DAILY PEG Last administered on 06/29/19at 08:16; Start 06/25/19 at 18:17 Quetiapine Fumarate (SEROquel) 12.5 mg PRN Q8HRS PRN PO PSYCHOTIC BEHAVIOR Last administered on 06/28/19at 20:07; Start 06/25/19 at 19:45 Vitamin A/Vitamin D (Vitamin A & D Ointment) 1 héctor PRN BID PRN TP SKIN PROTECTION Last administered on 06/26/19at 12:44; Start 06/26/19 at 06:00 Sodium Chloride 1,000 ml @ 1,000 mls/hr Q1H PRN IV hypotension; Start 06/26/19 at 12:41; Stop 06/26/19 at 18:40; Status DC Info (PHARMACY MONITORING -- do not chart) 1 each PRN DAILY PRN MC SEE COMMENTS; Start 06/26/19 at 12:45; Status UNV Info (PHARMACY MONITORING -- do not chart) 1 each PRN DAILY PRN MC SEE COMMENTS; Start 06/26/19 at 12:45 Active Scripts Active [place] 5-325 Tablet (Acetaminophen/Hydrocodone Bitart) 1 Each Tablet 0.5 Tab PO Q4HRS Zyvox (Linezolid) 600 Mg Tablet 600 Mg PO BID 4 Days Amox Tr-K Clv 500-125 Mg Tab (Amoxicillin/Potassium Clav) 1 Each Tablet 1 Tab PO DAILY 4 Days Tramadol Hcl 50 Mg Tablet 50 Mg PO PRN Q6HRS PRN Ondansetron Odt (Ondansetron) 4 Mg Tab.rapdis 4 Mg PO Q6HRS PRN Humalog (Insulin Lispro) 100 Unit/1 Ml Insuln.pen 0 Units SQ TIDWMEALS 30 Days BG 150-199= 1 units 200-299= 2 units 300-399= 4 units 400-499= 6 units ac tid sliding scale Reported Omeprazole 20 Mg Tablet.dr 1 Tab PO DAILY Vitamin D3 (Cholecalciferol (Vitamin D3)) 1,000 Unit Tablet 1 Tab PO DAILY Vitamin B-12 (Cyanocobalamin (Vitamin B-12)) 1,000 Mcg Tablet 1 Tab PO DAILY Senna (Sennosides) 8.6 Mg Tablet 8.6 Mg PO PRN DAILY PRN 2 tabs Renvela (Sevelamer Carbonate) 800 Mg Tablet 800 Mg PO TIDWMEALS Renal Caps Softgel (Folic Acid/Vitamin B Comp W-C) 1 Mg Capsule 1 Mg PO DAILY Reglan (Metoclopramide Hcl) 10 Mg Tablet 5 Mg PO TID Probiotic (Lactobacillus Acidophilus) 1 Each Capsule 1 Each PO BID Milk Of Magnesia (Magnesium Hydroxide) 400 Mg/5 Ml Oral.susp 400 Mg PO PRN DAILY PRN Lipitor (Atorvastatin Calcium) 40 Mg Tablet 1 Tab PO QHS Humalog (Insulin Lispro) 100 Unit/1 Ml Insuln.pen 100 Unit SQ TIDBFRMEAL 150-199=1 unit 200-299=2 units 300-399=4 units 100-499=6 units Clopidogrel (Clopidogrel Bisulfate) 75 Mg Tablet 1 Tab PO DAILY Duoneb 0.5-3(2.5) Mg/3 Ml (Albuterol/Ipratropium) 3 Ml Ampul.neb 3 Ml NEB PRN Q4HRS PRN Lac-Hydrin Five (Ammonium Lactate) 226 Gm Lotion 226 Gm TP BID Allopurinol 100 Mg Tablet 1 Tab PO DAILY Tylenol (Acetaminophen) 325 Mg Tablet 1 Tab PO PRN Q4HRS Aspirin 81 Mg Tab.chew 81 Mg PO DAILY Vitals/I & O Vital Sign - Last 24 Hours 906/28/19 06/28/19 06/28/19 10:55 11:00 15:00 17:19 Temp 97.9 97.5 97.9 97.5 Pulse 84 68 65 Resp 24 24 20 B/P (MAP) 118/57 86/49 (61) 121/61 (81) Pulse Ox 95 95 95 O2 Delivery Room Air Room Air Room Air 06/28/19 06/28/19 06/28/19 06/28/19 18:02 19:00 20:00 20:45 Temp 98.9 98.9 98.9 98.9 Pulse 63 65 Resp 16 16 B/P (MAP) 97/52 (67) 97/52 (67) Pulse Ox 95 100 O2 Delivery Room Air Room Air Room Air Room Air 06/28/19 06/29/19 06/29/19 06/29/19 23:00 00:11 03:02 07:00 Temp 98.4 98.4 98.3 98.7 98.4 98.4 98.3 98.7 Pulse 63 63 62 84 Resp 18 18 18 20 B/P (MAP) 98/53 (68) 98/53 (68) 103/55 (71) 95/51 (66) Pulse Ox 99 99 100 100 O2 Delivery Room Air Room Air Room Air Room Air Intake and Output 06/28/19 06/28/19 06/29/19 14:59 22:59 06:59 Intake Total 400 ml 750 ml 480 ml Output Total 40 ml 0 ml 20 ml Balance 360 ml 750 ml 460 ml BAN TORRES MD Jun 29, 2019 09:34
[2019-06-29 09:38] LABS: BASO # 0.1 x10^3/uL (0.0-0.2); BASO % 1 % (0-3); EOS # 0.5 x10^3/uL (0.0-0.7); EOS % 5 % (0-3); HEMATOCRIT 30.3 % (39.0-53.0); HEMOGLOBIN 9.6 g/dL (13.0-17.5); LYMPH # 1.1 x10^3/uL (1.0-4.8); LYMPH % 10 % (24-48); MEAN CORPUSCULAR HEMOGLOBIN 28 pg (25-35); MEAN CORPUSCULAR HGB CONC 32 g/dL (31-37); MEAN CORPUSCULAR VOLUME 88 fL (79-100); MONO # 0.8 x10^3/uL (0.0-1.1); MONO % 7 % (0-9); NEUT # 8.7 x10^3/uL (1.8-7.7); NEUT % 78 % (31-73); PLATELET COUNT 406 x10^3/uL (140-400); RED BLOOD COUNT 3.46 x10^6/uL (4.30-5.70); RED CELL DISTRIBUTION WIDTH 18.8 % (11.5-14.5); WHITE BLOOD COUNT 11.1 x10^3/uL (4.0-11.0)
[2019-06-29 09:48] LABS: CALCIUM 9.4 mg/dL (8.5-10.1); CREATININE 6.8 mg/dL (0.7-1.3); GFR 9.6
[2019-06-29] MEDS: QUEtiapine 25 MG TABLET. PO PRN (09:54)
[2019-06-29] MEDS: VITS A & D/LANOLIN TOPICAL OINTMENT 42GM TUBE. TP PRN (10:30)
--- NOTE | 2019-06-29 10:44 | PDOC ---
PROGRESS NOTES Subjective Subjective screams at times and asked him why he does it and cant tell me .receives low dose seroquel every 8 hours prn for this and told nurse to yumiko it sparingly as it can contribute to his encephalopathy. tolerates tube feeding. lab reviewed,. Objective Objective Vital Signs Date Time Temp Pulse Resp B/P (MAP) Pulse Ox O2 Delivery O2 Flow Rate FiO2 06/29/19 07:00 98.7 84 20 95/51 (66) 100 Room Air 98.7 Intake and Output 06/29/19 06:59 Intake Total 1630 ml Output Total 60 ml Balance 1570 ml Tube Feeding 1630 ml Output Urine Total 60 ml # Bowel Movements 1 Physical Exam Abdomen: Soft Heart: Normal S1, Normal S2 Extremities: No edema, Other (bilaterak BKA) General: Other (opens eyes and says a few words) HEENT: Atraumatic Lungs: Clear to auscultation Neuro: Other (says a few words) Psych/Mental Status: Other (encephalopathic) Skin: No rashes Assessment Assessment Problems metabolic encephalopathy. 2. Pyuria, consistent with urinary tract infection. pus in urine. urine culture grew 10-25K yeast 3. Bilateral below-knee amputation. 4. left below-knee amputation stump wound infection 5. Diabetes mellitus type 2. 6. Peripheral arterial disease. 7. End-stage renal disease, on hemodialysis. m-w-f 8. paroxysmal atrial fibrillation. in nsr. not a coumadin candidate. recent hx of retroperitoneal bleed on anticoagulants and fall risk. 9. Severe protein-calorie malnutrition. 10. Anemia of chronic disease. NSTEMI oropharyngeal dysphagia Medical Problems: (1) Altered mental status Status: Acute (2) Anemia in chronic illness Status: Chronic (3) CAD (coronary artery disease) Status: Chronic (4) Chronic a-fib Status: Chronic (5) DM2 (diabetes mellitus, type 2) Status: Chronic (6) ESRD (end stage renal disease) Status: Acute (7) HTN (hypertension) Status: Chronic (8) Metabolic encephalopathy Status: Acute (9) NSTEMI (non-ST elevated myocardial infarction) Status: Acute (10) Paroxysmal A-fib Status: Acute (11) Peripheral artery disease Status: Chronic (12) Severe protein-calorie malnutrition Status: Chronic (13) SSS (sick sinus syndrome) Status: Chronic (14) UTI (urinary tract infection) Status: Acute Plan Plan of Care hemodialysis today eventual wound debridement when encephalopathy improves uses prn seroquel sparingly wound care iv antibiotics per ID. vancomycin and zosyn and micafungin palliative care consult continue dobhoff tube feeding Comment Review of Relevant I have reviewed the following items soumya (where applicable) has been applied. Labs Laboratory Tests Test 06/27/19 12:20 06/27/19 17:58 06/28/19 04:00 06/28/19 11:41 Glucose (Fingerstick) 221 mg/dL (70-99) 169 mg/dL (70-99) 189 mg/dL (70-99) White Blood Count 14.3 x10^3/uL (4.0-11.0) Red Blood Count 3.73 x10^6/uL (4.30-5.70) Hemoglobin 10.4 g/dL (13.0-17.5) Hematocrit 32.8 % (39.0-53.0) Mean Corpuscular Volume 88 fL (79-100) Mean Corpuscular Hemoglobin 28 pg (25-35) Mean Corpuscular Hemoglobin Concent 32 g/dL (31-37) Red Cell Distribution Width 18.4 % (11.5-14.5) Platelet Count 453 x10^3/uL (140-400) Test 06/28/19 17:04 06/29/19 08:23 06/29/19 09:15 Glucose (Fingerstick) 117 mg/dL (70-99) 197 mg/dL (70-99) White Blood Count 11.1 x10^3/uL (4.0-11.0) Red Blood Count 3.46 x10^6/uL (4.30-5.70) Hemoglobin 9.6 g/dL (13.0-17.5) Hematocrit 30.3 % (39.0-53.0) Mean Corpuscular Volume 88 fL (79-100) Mean Corpuscular Hemoglobin 28 pg (25-35) Mean Corpuscular Hemoglobin Concent 32 g/dL (31-37) Red Cell Distribution Width 18.8 % (11.5-14.5) Platelet Count 406 x10^3/uL (140-400) Neutrophils (%) (Auto) 78 % (31-73) Lymphocytes (%) (Auto) 10 % (24-48) Monocytes (%) (Auto) 7 % (0-9) Eosinophils (%) (Auto) 5 % (0-3) Basophils (%) (Auto) 1 % (0-3) Neutrophils # (Auto) 8.7 x10^3/uL (1.8-7.7) Lymphocytes # (Auto) 1.1 x10^3/uL (1.0-4.8) Monocytes # (Auto) 0.8 x10^3/uL (0.0-1.1) Eosinophils # (Auto) 0.5 x10^3/uL (0.0-0.7) Basophils # (Auto) 0.1 x10^3/uL (0.0-0.2) Sodium Level 140 mmol/L (136-145) Potassium Level 4.0 mmol/L (3.5-5.1) Chloride Level 101 mmol/L (98-107) Carbon Dioxide Level 27 mmol/L (21-32) Anion Gap 12 (6-14) Blood Urea Nitrogen 69 mg/dL (8-26) Creatinine 6.8 mg/dL (0.7-1.3) Estimated GFR (Cockcroft-Gault) 9.6 Glucose Level 235 mg/dL (70-99) Calcium Level 9.4 mg/dL (8.5-10.1) Laboratory Tests Test 06/28/19 11:41 06/28/19 17:04 06/29/19 08:23 06/29/19 09:15 Glucose (Fingerstick) 189 mg/dL (70-99) 117 mg/dL (70-99) 197 mg/dL (70-99) White Blood Count 11.1 x10^3/uL (4.0-11.0) Red Blood Count 3.46 x10^6/uL (4.30-5.70) Hemoglobin 9.6 g/dL (13.0-17.5) Hematocrit 30.3 % (39.0-53.0) Mean Corpuscular Volume 88 fL (79-100) Mean Corpuscular Hemoglobin 28 pg (25-35) Mean Corpuscular Hemoglobin Concent 32 g/dL (31-37) Red Cell Distribution Width 18.8 % (11.5-14.5) Platelet Count 406 x10^3/uL (140-400) Neutrophils (%) (Auto) 78 % (31-73) Lymphocytes (%) (Auto) 10 % (24-48) Monocytes (%) (Auto) 7 % (0-9) Eosinophils (%) (Auto) 5 % (0-3) Basophils (%) (Auto) 1 % (0-3) Neutrophils # (Auto) 8.7 x10^3/uL (1.8-7.7) Lymphocytes # (Auto) 1.1 x10^3/uL (1.0-4.8) Monocytes # (Auto) 0.8 x10^3/uL (0.0-1.1) Eosinophils # (Auto) 0.5 x10^3/uL (0.0-0.7) Basophils # (Auto) 0.1 x10^3/uL (0.0-0.2) Sodium Level 140 mmol/L (136-145) Potassium Level 4.0 mmol/L (3.5-5.1) Chloride Level 101 mmol/L (98-107) Carbon Dioxide Level 27 mmol/L (21-32) Anion Gap 12 (6-14) Blood Urea Nitrogen 69 mg/dL (8-26) Creatinine 6.8 mg/dL (0.7-1.3) Estimated GFR (Cockcroft-Gault) 9.6 Glucose Level 235 mg/dL (70-99) Calcium Level 9.4 mg/dL (8.5-10.1) Microbiology 06/23/19 Urine Culture - Final, Complete 06/23/19 Urine Culture Result 1 (TEREZA) - Final, Complete 06/22/19 Blood Culture - Final, Complete NO GROWTH AFTER 5 DAYS Medications Current Medications Vancomycin HCl 250 ml @ 250 mls/hr 1X ONCE IV ; Start 06/22/19 at 10:45; Stop 06/22/19 at 11:44; Status UNV Piperacillin Sod/ Tazobactam Sod 2.25 gm/Sodium Chloride 50 ml @ 100 mls/hr 1X ONCE IV Last administered on 06/22/19at 11:55; Start 06/22/19 at 10:45; Stop 06/22/19 at 11:14; Status DC Sodium Chloride 1,000 ml @ 100 mls/hr Q10H IV Last administered on 06/22/19at 11:55; Start 06/22/19 at 10:38; Stop 06/22/19 at 20:37; Status DC Vancomycin HCl 2 gm/Sodium Chloride 500 ml @ 250 mls/hr 1X ONCE IV Last administered on 06/22/19at 12:32; Start 06/22/19 at 11:30; Stop 06/22/19 at 13:29; Status DC Info (PHARMACY MONITORING -- do not chart) 1 each PRN DAILY PRN MC SEE COMMENTS; Start 06/22/19 at 16:30; Stop 06/24/19 at 11:38; Status DC Info (PHARMACY MONITORING -- do not chart) 1 each PRN DAILY PRN MC SEE COMMENTS; Start 06/22/19 at 16:30; Status UNV Sodium Chloride 1,000 ml @ 40 mls/hr Q24H IV Last administered on 06/24/19at 18:31; Start 06/22/19 at 17:30; Stop 06/25/19 at 19:44; Status DC Vancomycin HCl (Vanco Per Pharmacy) 1 each PRN DAILY PRN MC SEE COMMENTS Last administered on 06/28/19at 12:25; Start 06/22/19 at 17:30 Piperacillin Sod/ Tazobactam Sod (Zosyn Per Pharmacy) 1 each PRN DAILY PRN MC SEE COMMENTS; Start 06/22/19 at 17:30 Acetaminophen (Tylenol) 650 mg PRN Q6HRS PRN PO MILD PAIN / TEMP; Start 06/22/19 at 17:30; Stop 06/25/19 at 18:15; Status DC Ondansetron HCl (Zofran) 4 mg PRN Q6HRS PRN IV NAUSEA/VOMITING; Start 06/22/19 at 17:30 Clopidogrel Bisulfate (Plavix) 75 mg DAILYWBKFT PO Last administered on 06/29/19at 08:16; Start 06/23/19 at 08:00 Vitamin B Complex/ Vitamin C (Carlos-Moses) 1 tab DAILY PO Last administered on 06/29/19at 08:16; Start 06/23/19 at 09:00 Allopurinol (Zyloprim) 100 mg DAILY PO ; Start 06/23/19 at 09:00; Stop 06/25/19 at 18:17; Status DC Atorvastatin Calcium (Lipitor) 40 mg QHS PO Last administered on 06/22/19at 21:37; Start 06/22/19 at 21:00; Stop 06/25/19 at 12:19; Status DC Pantoprazole Sodium (Protonix) 40 mg DAILYAC PO Last administered on 06/29/19at 08:16; Start 06/23/19 at 07:30 Cyanocobalamin (Vitamin B-12) 1,000 mcg DAILY PO Last administered on 06/29/19at 08:16; Start 06/23/19 at 09:00 Piperacillin Sod/ Tazobactam Sod 2.25 gm/Sodium Chloride 50 ml @ 100 mls/hr Q8HRS IV Last administered on 06/29/19at 02:56; Start 06/22/19 at 21:00 Heparin Sodium (Porcine) (Heparin Sodium) 5,000 unit BID SQ Last administered on 06/22/19at 21:37; Start 06/22/19 at 21:00; Stop 06/23/19 at 08:23; Status DC Insulin Human Lispro (HumaLOG) 0-6 UNITS BG 400-49... TIDWMEALS SQ Last administered on 06/27/19at 13:04; Start 06/23/19 at 08:00 Vancomycin HCl (Vancomycin Random Level) 1 each 1X ONCE MC Last administered on 06/24/19at 06:37; Start 06/24/19 at 06:00; Stop 06/24/19 at 06:01; Status DC Heparin Sodium/ Dextrose 500 ml @ 19.3 mls/hr CONT PRN IV SEE I/O RECORD; Start 06/23/19 at 08:30; Stop 06/23/19 at 14:53; Status DC Heparin Sodium (Porcine) (Heparin Sodium) 2,000 unit PRN Q6HRS PRN IV FOR UFH LEVEL LESS THAN 0.2; Start 06/23/19 at 08:30; Stop 06/23/19 at 14:53; Status DC Aspirin (Ecotrin) 325 mg 1X ONCE PO ; Start 06/23/19 at 10:30; Stop 06/23/19 at 10:31; Status DC Aspirin (Ecotrin) 81 mg DAILYWBKFT PO ; Start 06/24/19 at 08:00; Stop 06/25/19 at 18:16; Status DC Ondansetron HCl (Zofran) 4 mg PRN Q6HRS PRN IV NAUSEA/VOMITING; Start 06/24/19 at 07:00; Stop 06/25/19 at 06:59; Status DC Morphine Sulfate (Morphine Sulfate) 1 mg PRN Q10MIN PRN IV SEVERE PAIN 7-10; Start 06/24/19 at 07:00; Stop 06/24/19 at 10:06; Status DC Ringer's Solution 1,000 ml @ 30 mls/hr Q24H IV ; Start 06/24/19 at 07:00; Stop 06/24/19 at 18:59; Status DC Lidocaine HCl (Xylocaine-Mpf 1% 2ml Vial) 2 ml PRN 1X PRN ID PRIOR TO IV START; Start 06/24/19 at 07:00; Stop 06/25/19 at 06:59; Status DC Hydromorphone HCl (Dilaudid) 0.5 mg PRN Q10MIN PRN IV SEV PAIN, Second choice; Start 06/24/19 at 07:00; Stop 06/24/19 at 10:06; Status DC Info (Anti-Coagulation Monitoring By Pharmacy) 1 each PRN DAILY PRN MC SEE COMMENTS Last administered on 06/25/19at 16:28; Start 06/23/19 at 14:30 Enoxaparin Sodium (Lovenox Per Pharmacy Treatment Dosing) 1 each 1X PRN MC SEE COMMENTS; Start 06/23/19 at 14:45; Stop 06/23/19 at 21:00; Status DC Enoxaparin Sodium (Lovenox 80mg Syringe) 80 mg 1X ONCE SQ Last administered on 06/23/19at 15:16; Start 06/23/19 at 15:30; Stop 06/23/19 at 15:31; Status DC Heparin Sodium (Porcine) (Heparin Sodium) 5,000 unit Q12HR SQ Last administered on 06/29/19at 08:16; Start 06/24/19 at 11:00 Acetaminophen (Tylenol Supp) 650 mg PRN Q6HRS PRN ND MILD PAIN / TEMP Last administered on 06/24/19at 23:03; Start 06/24/19 at 10:30; Stop 06/28/19 at 11:19; Status DC Tramadol HCl (Ultram) 25 mg PRN Q6HRS PRN PO PAIN MODERATE PAIN Last administered on 06/28/19at 17:19; Start 06/24/19 at 10:30 Ketorolac Tromethamine (Toradol 15mg Vial) 15 mg PRN Q6HRS PRN IV PAIN Last administered on 06/28/19at 17:19; Start 06/24/19 at 10:30; Stop 06/29/19 at 10:29; Status DC Sodium Chloride 1,000 ml @ 1,000 mls/hr Q1H PRN IV hypotension; Start 06/24/19 at 11:27; Stop 06/24/19 at 17:26; Status DC Sodium Chloride 1,000 ml @ 400 mls/hr Q2H30M PRN IV PATENCY; Start 06/24/19 at 11:27; Stop 06/24/19 at 23:26; Status DC Info (PHARMACY MONITORING -- do not chart) 1 each PRN DAILY PRN MC SEE COMMENTS; Start 06/24/19 at 11:30 Info (PHARMACY MONITORING -- do not chart) 1 each PRN DAILY PRN MC SEE COMMENTS; Start 06/24/19 at 11:30; Status UNV Vancomycin HCl 500 mg/Sodium Chloride 100 ml @ 100 mls/hr QMWF IV Last administered on 06/26/19at 18:12; Start 06/24/19 at 16:00 Dextrose (Dextrose 50%-Water Syringe) 12.5 gm PRN Q15MIN PRN IV SEE COMMENTS Last administered on 06/25/19at 01:41; Start 06/25/19 at 01:30 Dextrose 250 ml PRN Q15MIN PRN IV SEE COMMENTS; Start 06/25/19 at 01:30 Micafungin Sodium 100 mg/Dextrose 100 ml @ 100 mls/hr Q24H IV Last admi nistered on 06/29/19at 08:16; Start 06/25/19 at 09:00 Metoprolol Tartrate (Lopressor Vial) 2.5 mg Q6HRS IVP Last administered on 06/27/19at 17:59; Start 06/25/19 at 18:00; Stop 06/28/19 at 11:19; Status DC Atorvastatin Calcium (Lipitor) 10 mg QHS PEG Last administered on 06/28/19at 20:07; Start 06/25/19 at 21:00 Ondansetron HCl (Zofran) 4 mg PRN Q6HRS PRN IV NAUSEA/VOMITING; Start 06/26/19 at 07:00; Stop 06/27/19 at 06:59; Status DC Morphine Sulfate (Morphine Sulfate) 1 mg PRN Q10MIN PRN IV SEVERE PAIN 7-10; Start 06/26/19 at 07:00; Stop 06/27/19 at 06:59; Status DC Ringer's Solution 1,000 ml @ 30 mls/hr Q24H IV ; Start 06/26/19 at 07:00; Stop 06/26/19 at 18:59; Status DC Lidocaine HCl (Xylocaine-Mpf 1% 2ml Vial) 2 ml PRN 1X PRN ID PRIOR TO IV START; Start 06/26/19 at 07:00; Stop 06/27/19 at 06:59; Status DC Hydromorphone HCl (Dilaudid) 0.5 mg PRN Q10MIN PRN IV SEV PAIN, Second choice; Start 06/26/19 at 07:00; Stop 06/27/19 at 06:59; Status DC Acetaminophen (Tylenol) 650 mg PRN Q6HRS PRN PEG MILD PAIN / TEMP Last administered on 06/29/19at 08:16; Start 06/25/19 at 18:15 Aspirin (Children'S Aspirin) 81 mg DAILYWBKFT PEG Last administered on 06/29/19at 08:16; Start 06/26/19 at 08:00 Allopurinol (Zyloprim) 100 mg DAILY PEG Last administered on 06/29/19at 08:16; Start 06/25/19 at 18:17 Quetiapine Fumarate (SEROquel) 12.5 mg PRN Q8HRS PRN PO PSYCHOTIC BEHAVIOR Last administered on 06/29/19at 09:58; Start 06/25/19 at 19:45 Vitamin A/Vitamin D (Vitamin A & D Ointment) 1 héctor PRN BID PRN TP SKIN PROTECTION Last administered on 06/26/19at 12:44; Start 06/26/19 at 06:00 Sodium Chloride 1,000 ml @ 1,000 mls/hr Q1H PRN IV hypotension; Start 06/26/19 at 12:41; Stop 06/26/19 at 18:40; Status DC Info (PHARMACY MONITORING -- do not chart) 1 each PRN DAILY PRN MC SEE COMMENTS; Start 06/26/19 at 12:45; Status UNV Info (PHARMACY MONITORING -- do not chart) 1 each PRN DAILY PRN MC SEE COMMENTS ; Start 06/26/19 at 12:45 Active Scripts Active [place] 5-325 Tablet (Acetaminophen/Hydrocodone Bitart) 1 Each Tablet 0.5 Tab PO Q4HRS Zyvox (Linezolid) 600 Mg Tablet 600 Mg PO BID 4 Days Amox Tr-K Clv 500-125 Mg Tab (Amoxicillin/Potassium Clav) 1 Each Tablet 1 Tab PO DAILY 4 Days Tramadol Hcl 50 Mg Tablet 50 Mg PO PRN Q6HRS PRN Ondansetron Odt (Ondansetron) 4 Mg Tab.rapdis 4 Mg PO Q6HRS PRN Humalog (Insulin Lispro) 100 Unit/1 Ml Insuln.pen 0 Units SQ TIDWMEALS 30 Days BG 150-199= 1 units 200-299= 2 units 300-399= 4 units 400-499= 6 units ac tid sliding scale Reported Omeprazole 20 Mg Tablet.dr 1 Tab PO DAILY Vitamin D3 (Cholecalciferol (Vitamin D3)) 1,000 Unit Tablet 1 Tab PO DAILY Vitamin B-12 (Cyanocobalamin (Vitamin B-12)) 1,000 Mcg Tablet 1 Tab PO DAILY Senna (Sennosides) 8.6 Mg Tablet 8.6 Mg PO PRN DAILY PRN 2 tabs Renvela (Sevelamer Carbonate) 800 Mg Tablet 800 Mg PO TIDWMEALS Renal Caps Softgel (Folic Acid/Vitamin B Comp W-C) 1 Mg Capsule 1 Mg PO DAILY Reglan (Metoclopramide Hcl) 10 Mg Tablet 5 Mg PO TID Probiotic (Lactobacillus Acidophilus) 1 Each Capsule 1 Each PO BID Milk Of Magnesia (Magnesium Hydroxide) 400 Mg/5 Ml Oral.susp 400 Mg PO PRN DAILY PRN Lipitor (Atorvastatin Calcium) 40 Mg Tablet 1 Tab PO QHS Humalog (Insulin Lispro) 100 Unit/1 Ml Insuln.pen 100 Unit SQ TIDBFRMEAL 150-199=1 unit 200-299=2 units 300-399=4 units 100-499=6 units Clopidogrel (Clopidogrel Bisulfate) 75 Mg Tablet 1 Tab PO DAILY Duoneb 0.5-3(2.5) Mg/3 Ml (Albuterol/Ipratropium) 3 Ml Ampul.neb 3 Ml NEB PRN Q4HRS PRN Lac-Hydrin Five (Ammonium Lactate) 226 Gm Lotion 226 Gm TP BID Allopurinol 100 Mg Tablet 1 Tab PO DAILY Tylenol (Acetaminophen) 325 Mg Tablet 1 Tab PO PRN Q4HRS Aspirin 81 Mg Tab.chew 81 Mg PO DAILY Vitals/I & O Vital Sign - Last 24 Hours 06/28/19 06/28/19 06/28/19 06/28/19 10:55 11:00 15:00 17:19 Temp 97.9 97.5 97.9 97.5 Pulse 84 68 65 Resp 24 24 20 B/P (MAP) 118/57 86/49 (61) 121/61 (81) Pulse Ox 95 95 95 O2 Delivery Room Air Room Air Room Air 06/28/19 06/28/19 06/28/19 06/28/19 18:02 19:00 20:00 20:45 Temp 98.9 98.9 98.9 98.9 Pulse 63 65 Resp 16 16 B/P (MAP) 97/52 (67) 97/52 (67) Pulse Ox 95 100 O2 Delivery Room Air Room Air Room Air Room Air 06/28/19 06/29/19 06/29/19 06/29/19 23:00 00:11 03:02 07:00 Temp 98.4 98.4 98.3 98.7 98.4 98.4 98.3 98.7 Pulse 63 63 62 84 Resp 18 18 18 20 B/P (MAP) 98/53 (68) 98/53 (68) 103/55 (71) 95/51 (66) Pulse Ox 99 99 100 100 O2 Delivery Room Air Room Air Room Air Room Air Intake and Output 06/28/19 06/28/19 06/29/19 14:59 22:59 06:59 Intake Total 400 ml 750 ml 480 ml Output Total 40 ml 0 ml 20 ml Balance 360 ml 750 ml 460 ml Nutrition Consultation Dietary Evaluation: Recommendations by RD: Increase Calorie Intake, Protein supplementation Comments: REC continue increasing TF rate 10 ml q8 hrs as tolerated to goal of Nepro@goal rate 40 ml/hr w/150 ml water flushes q6 hrs per REC Marcell BID via feeding tube, mix each packet w/4 oz water to dissolve, flush tube w/30 ml water before and after each packet - dietary aware Continue w/carlos-moses for additional vitamin needs for skin healing Expected Outcomes/Goals: TF intiation/infusion to meet >75% est needs - not met, goal ongoing Malnutrition Findings: Food and Nutrition Intake (Sev: <50% est energy req 5days Weight Status: Appropriate SAM OLMOS MD Jun 29, 2019 10:44
[2019-06-29 11:00] VITALS: BP 110/60
--- NOTE | 2019-06-29 11:07 | PDOC ---
SUBJECTIVE ROS Stable on HD OBJECTIVE Vital Signs Vital Signs Date Time Temp Pulse Resp B/P (MAP) Pulse Ox O2 Delivery O2 Flow Rate FiO2 06/29/19 07:00 98.7 84 20 95/51 (66) 100 Room Air 98.7 I & 0 Intake and Output 06/29/19 06:59 Intake Total 1630 ml Output Total 60 ml Balance 1570 ml Tube Feeding 1630 ml Output Urine Total 60 ml # Bowel Movements 1 PHYSICAL EXAM Physical Exam GENERAL: NAD NECK: Supple. HEART: S1, S2. LUNGS: Clear bilaterally. ABDOMEN: Soft, nontender, obese. Bowel sounds present. EXTREMITIES: Right below knee amputation, left lower extremity amputation stump has a wound with a necrotic area. Right upper extremity AV fistula site Neuro- Moves upper extremity, answers a few questions, follows a few commands. Finley + DIAGNOSIS/ASSESSMENT Assessment & Plan ESRD - On HD MWF seen on HD tolerating well, continue as ordered, Alejandro Vega Urinary tract infection Finley in place, On Abx . Altered mental status, improving. Left below knee amputation site infected wound seen by Vascular, awaiting debridement when stable Anemia of chronic disease. Severe protein-calorie malnutrition. Chronic atrial fibrillation. COMMENT/RELEVANT DATA Meds Current Medications Medications (Trade) Dose Ordered Sig/Mitzi Start Time Stop Time Status Last Admin Dose Admin Acetaminophen (Tylenol Supp) 650 mg PRN Q6HRS PRN 06/24/19 10:30 06/28/19 11:19 DC 06/24/19 23:03 650 MG Acetaminophen (Tylenol) 650 mg PRN Q6HRS PRN 06/25/19 18:15 06/29/19 08:16 650 MG Allopurinol (Zyloprim) 100 mg DAILY 06/25/19 18:17 06/29/19 08:16 100 MG Aspirin (Children'S Aspirin) 81 mg DAILYWBKFT 06/26/19 08:00 06/29/19 08:16 81 MG Aspirin (Ecotrin) 81 mg DAILYWBKFT 06/24/19 08:00 06/25/19 18:16 DC Atorvastatin Calcium (Lipitor) 10 mg QHS 06/25/19 21:00 06/28/19 20:07 10 MG Clopidogrel Bisulfate (Plavix) 75 mg DAILYWBKFT 06/23/19 08:00 06/29/19 08:16 75 MG Cyanocobalamin (Vitamin B-12) 1,000 mcg DAILY 06/23/19 09:00 06/29/19 08:16 1,000 MCG Dextrose 250 ml PRN Q15MIN PRN 06/25/19 01:30 Dextrose (Dextrose 50%-Water Syringe) 12.5 gm PRN Q15MIN PRN 06/25/19 01:30 06/25/19 01:41 12.5 GM Enoxaparin Sodium (Lovenox 80mg Syringe) 80 mg 1X ONCE 06/23/19 15:30 06/23/19 15:31 DC 06/23/19 15:16 80 MG Enoxaparin Sodium (Lovenox Per Pharmacy Treatment Dosing) 1 each 1X PRN 06/23/19 14:45 06/23/19 21:00 DC Heparin Sodium (Porcine) (Heparin Sodium) 5,000 unit Q12HR 06/24/19 11:00 06/29/19 08:16 5,000 UNIT Heparin Sodium/ Dextrose 500 ml @ 19.3 mls/hr CONT PRN 06/23/19 08:30 06/23/19 14:53 DC Hydromorphone HCl (Dilaudid) 0.5 mg PRN Q10MIN PRN 06/26/19 07:00 06/27/19 06:59 DC Info (Anti-Coagulation Monitoring By Pharmacy) 1 each PRN DAILY PRN 06/23/19 14:30 06/25/19 16:28 1 EACH Info (PHARMACY MONITORING -- do not chart) 1 each PRN DAILY PRN 06/26/19 12:45 Insulin Human Lispro (HumaLOG) 0-6 UNITS BG 400-49... TIDWMEALS 06/23/19 08:00 06/27/19 13:04 1 UNITS Ketorolac Tromethamine (Toradol 15mg Vial) 15 mg PRN Q6HRS PRN 06/24/19 10:30 06/29/19 10:29 DC 06/28/19 17:19 15 MG Lidocaine HCl (Xylocaine-Mpf 1% 2ml Vial) 2 ml PRN 1X PRN 06/26/19 07:00 06/27/19 06:59 DC Metoprolol Tartrate (Lopressor Vial) 2.5 mg Q6HRS 06/25/19 18:00 06/28/19 11:19 DC 06/27/19 17:59 2.5 MG Micafungin Sodium 100 mg/Dextrose 100 ml @ 100 mls/hr Q24H 06/25/19 09:00 06/29/19 08:16 100 MLS/HR Morphine Sulfate (Morphine Sulfate) 1 mg PRN Q10MIN PRN 06/26/19 07:00 06/27/19 06:59 DC Ondansetron HCl (Zofran) 4 mg PRN Q6HRS PRN 06/26/19 07:00 06/27/19 06:59 DC Pantoprazole Sodium (Protonix) 40 mg DAILYAC 06/23/19 07:30 06/29/19 08:16 40 MG Piperacillin Sod/ Tazobactam Sod (Zosyn Per Pharmacy) 1 each PRN DAILY PRN 06/22/19 17:30 Piperacillin Sod/ Tazobactam Sod 2.25 gm/Sodium Chloride 50 ml @ 100 mls/hr Q8HRS 06/22/19 21:00 06/29/19 02:56 100 MLS/HR Quetiapine Fumarate (SEROquel) 12.5 mg PRN Q8HRS PRN 06/25/19 19:45 06/28/19 20:07 12.5 MG Ringer's Solution 1,000 ml @ 30 mls/hr Q24H 06/26/19 07:00 06/26/19 18:59 DC Sodium Chloride 1,000 ml @ 1,000 mls/hr Q1H PRN 06/26/19 12:41 06/26/19 18:40 DC Tramadol HCl (Ultram) 25 mg PRN Q6HRS PRN 06/24/19 10:30 06/28/19 17:19 25 MG Vancomycin HCl (Vanco Per Pharmacy) 1 each PRN DAILY PRN 06/22/19 17:30 06/28/19 12:25 1 EACH Vancomycin HCl (Vancomycin Random Level) 1 each 1X ONCE 06/24/19 06:00 06/24/19 06:01 DC 06/24/19 06:37 1 EACH Vancomycin HCl 500 mg/Sodium Chloride 100 ml @ 100 mls/hr QMWF 06/24/19 16:00 06/26/19 18:12 100 MLS/HR Vancomycin HCl 2 gm/Sodium Chloride 500 ml @ 250 mls/hr 1X ONCE 06/22/19 11:30 06/22/19 13:29 DC 06/22/19 12:32 250 MLS/HR Vitamin A/Vitamin D (Vitamin A & D Ointment) 1 héctor PRN BID PRN 06/26/19 06:00 06/26/19 12:44 1 HÉCTOR Vitamin B Complex/ Vitamin C (Rosalie-Judah) 1 tab DAILY 06/23/19 09:00 06/29/19 08:16 1 TAB Lab Laboratory Tests Test 06/28/19 11:41 06/28/19 17:04 06/29/19 08:23 06/29/19 09:15 Glucose (Fingerstick) 189 mg/dL (70-99) 117 mg/dL (70-99) 197 mg/dL (70-99) White Blood Count 11.1 x10^3/uL (4.0-11.0) Red Blood Count 3.46 x10^6/uL (4.30-5.70) Hemoglobin 9.6 g/dL (13.0-17.5) Hematocrit 30.3 % (39.0-53.0) Mean Corpuscular Volume 88 fL (79-100) Mean Corpuscular Hemoglobin 28 pg (25-35) Mean Corpuscular Hemoglobin Concent 32 g/dL (31-37) Red Cell Distribution Width 18.8 % (11.5-14.5) Platelet Count 406 x10^3/uL (140-400) Neutrophils (%) (Auto) 78 % (31-73) Lymphocytes (%) (Auto) 10 % (24-48) Monocytes (%) (Auto) 7 % (0-9) Eosinophils (%) (Auto) 5 % (0-3) Basophils (%) (Auto) 1 % (0-3) Neutrophils # (Auto) 8.7 x10^3/uL (1.8-7.7) Lymphocytes # (Auto) 1.1 x10^3/uL (1.0-4.8) Monocytes # (Auto) 0.8 x10^3/uL (0.0-1.1) Eosinophils # (Auto) 0.5 x10^3/uL (0.0-0.7) Basophils # (Auto) 0.1 x10^3/uL (0.0-0.2) Sodium Level 140 mmol/L (136-145) Potassium Level 4.0 mmol/L (3.5-5.1) Chloride Level 101 mmol/L (98-107) Carbon Dioxide Level 27 mmol/L (21-32) Anion Gap 12 (6-14) Blood Urea Nitrogen 69 mg/dL (8-26) Creatinine 6.8 mg/dL (0.7-1.3) Estimated GFR (Cockcroft-Gault) 9.6 Glucose Level 235 mg/dL (70-99) Calcium Level 9.4 mg/dL (8.5-10.1) Results All relevant outside records, renal labs, imaging studies, telemetry/EKG's were reviewed. BLANCA SANTA MD Jun 29, 2019 11:07
[2019-06-29] MEDS ORDERED: IV NORMAL SALINE 1000ML BAG 1,000 ML IV PRN ×2 (12:00)
--- NOTE | 2019-06-29 12:04 | PDOC2 ---
PALLIATIVE CARE Palliative Care Note Palliative Care Consult requested by Dr. Thornton to address goals of care. Medical Assessment per medical record; Urinary tract infection. 2. Altered mental status, likely multifactorial, improving. CT head negative. 3. 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 End-stage renal disease, on hemodialysis. 5. Low-grade fevers. 6. leukocytosis 7. Anemia of chronic disease. 8. Severe protein-calorie malnutrition. 9. Chronic atrial fibrillation. 10. High troponin with working diagnosis of non-STEMI. 11. Chronic sacral wound, superficial. 12. Yeast in groin 13. Dysphagia: Dobhoff tube with feedings in place Patient opens eyes. Not oriented. Spoke with daughter/DPOA Ms. Brunson. Reviewed above medical condition. Discussed Code Status. Wants to continue Full Code Full Aggressive Care. She will be coming to tomorrow evening and will evaluate again. Plan: Return to when discharge. (had conversation with at ) Full code. Full aggressive care. NGUYEN ZAPATA Jun 29, 2019 12:04
--- NOTE | 2019-06-29 14:58 | PDOC ---
Provider Note Provider Note Patient currently on dialysis Family coming in town tomorrow for palliative care meeting Will plan left BKA stump debridement when medically stable to proceed if full care to opted for tomorrow with palliative meeting. DANIEL NELSON MD Jun 29, 2019 14:58
[2019-06-29] MEDS ORDERED: DIALYSIS PATIENT. MC PRN ×2 (16:00)
[2019-06-29 19:23] VITALS: BP 143/78
[2019-06-29] MEDS: ATORVASTATIN CALCIUM 10 MG TABLET. PEG SCH (21:43)
[2019-06-29] MEDS: VANCOMYCIN 500 MG in IV NORMAL SALINE 100ML 100 ML IV SCH (21:45)
[2019-06-29 22:40] VITALS: BP 101/46
[2019-06-30 03:00] VITALS: BP 101/44
[2019-06-30] MEDS: PIPERACILLIN/TAZOBACTAM 2.25 GM in IV NORMAL SALINE 50ML 50 ML IV SCH ×3 (05:47→21:11)
[2019-06-30 07:00] VITALS: BP 102/51
--- NOTE | 2019-06-30 08:04 | PDOC ---
Infectious Disease Note Subjective Subjective More alert today - does not vocalize but nods. Denies pain/nausea/SOA has some loose bm had some residuals last night, no vomiting d/w rn Vital Sign Vital Signs Vital Signs Date Time Temp Pulse Resp B/P (MAP) Pulse Ox O2 Delivery O2 Flow Rate FiO2 06/30/19 03:00 99.4 77 20 101/44 (63) 100 Room Air 99.4 Physical Exam PHYSICAL EXAM GENERAL: Alert and coop opens eyes when I called out his name, appears comfortable. No icterus. HEENT - Dobhoff + no th kimball, oral mucosa dry NECK: Supple. HEART: S1, S2. LUNGS: Clear bilaterally. ABDOMEN: Soft, nontender, obese. Bowel sounds present. yeast in groin EXTREMITIES: Right below knee amputation, scar healthy, left lower extremity amputation stump has a wound with a necrotic area. No bony exposure. No bogginess, excoriation bilateral groin. Right upper extremity AV fistula site looks okay. BACK: Has a superficial stage 1 sacral wound, I was not able to examine as the patient is being transferred to the second floor. No generalized rash, dry skin. SCIENCES DEAN: Moves upper extremity, answers a few questions, follows a few commands. Labs Lab Laboratory Tests Test 06/29/19 08:23 06/29/19 09:15 06/29/19 12:20 06/29/19 17:26 Glucose (Fingerstick) 197 mg/dL (70-99) 208 mg/dL (70-99) 129 mg/dL (70-99) White Blood Count 11.1 x10^3/uL (4.0-11.0) Red Blood Count 3.46 x10^6/uL (4.30-5.70) Hemoglobin 9.6 g/dL (13.0-17.5) Hematocrit 30.3 % (39.0-53.0) Mean Corpuscular Volume 88 fL (79-100) Mean Corpuscular Hemoglobin 28 pg (25-35) Mean Corpuscular Hemoglobin Concent 32 g/dL (31-37) Red Cell Distribution Width 18.8 % (11.5-14.5) Platelet Count 406 x10^3/uL (140-400) Neutrophils (%) (Auto) 78 % (31-73) Lymphocytes (%) (Auto) 10 % (24-48) Monocytes (%) (Auto) 7 % (0-9) Eosinophils (%) (Auto) 5 % (0-3) Basophils (%) (Auto) 1 % (0-3) Neutrophils # (Auto) 8.7 x10^3/uL (1.8-7.7) Lymphocytes # (Auto) 1.1 x10^3/uL (1.0-4.8) Monocytes # (Auto) 0.8 x10^3/uL (0.0-1.1) Eosinophils # (Auto) 0.5 x10^3/uL (0.0-0.7) Basophils # (Auto) 0.1 x10^3/uL (0.0-0.2) Sodium Level 140 mmol/L (136-145) Potassium Level 4.0 mmol/L (3.5-5.1) Chloride Level 101 mmol/L (98-107) Carbon Dioxide Level 27 mmol/L (21-32) Anion Gap 12 (6-14) Blood Urea Nitrogen 69 mg/dL (8-26) Creatinine 6.8 mg/dL (0.7-1.3) Estimated GFR (Cockcroft-Gault) 9.6 Glucose Level 235 mg/dL (70-99) Calcium Level 9.4 mg/dL (8.5-10.1) Test 06/29/19 18:11 06/30/19 00:07 Glucose (Fingerstick) 101 mg/dL (70-99) 182 mg/dL (70-99) Micro Microbiology 06/23/19 Urine Culture - Final, Complete 06/23/19 Urine Culture Result 1 (TEREZA) - Final, Complete 06/22/19 Blood Culture - Final, Complete NO GROWTH AFTER 5 DAYS Objective Assessment 1. Urinary tract infection. No leukocyte esterase or nitrite done. Not done again on repeat UA 06/24. urine had pus like appearance when allan placement was attempted, yeast on uc likely colonization allan now in place 2. Altered mental status, likely multifactorial, improving. CT head negative. 3. 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 End-stage renal disease, on hemodialysis. 5. Low-grade fevers. 6. leukocytosis - improved yesterday 7. Anemia of chronic disease. 8. Severe protein-calorie malnutrition. 9. Chronic atrial fibrillation. 10. High troponin with working diagnosis of non-STEMI. 11. Chronic sacral wound, superficial. 12. Yeast in groin 13. Dysphagia on ngt Plan Plan of Care - Continue Vanc,Zosyn, renal dosing /micafungin - check c diff pcr - initially collected but test not completed. New specimen to be collected - d/w nursing - f/u c/s and labs in am -Vascular Surgery planning for wound vac per Millie LORENZANA as wound looks some better for now- await family decision - Continue local wound care. - Continue supportive care. - palliative consulted Discussed with RN. ABIODUN BAPTISTE MD Jun 30, 2019 08:04
--- NOTE | 2019-06-30 08:34 | PDOC ---
PROGRESS NOTES Assessment Problems Medical Problems: (1) Altered mental status Status: Acute (2) Anemia in chronic illness Status: Chronic (3) CAD (coronary artery disease) Status: Chronic (4) Chronic a-fib Status: Chronic (5) DM2 (diabetes mellitus, type 2) Status: Chronic (6) ESRD (end stage renal disease) Status: Acute (7) HTN (hypertension) Status: Chronic (8) Metabolic encephalopathy Status: Acute (9) NSTEMI (non-ST elevated myocardial infarction) Status: Acute (10) Paroxysmal A-fib Status: Acute (11) Peripheral artery disease Status: Chronic (12) Severe protein-calorie malnutrition Status: Chronic (13) SSS (sick sinus syndrome) Status: Chronic (14) UTI (urinary tract infection) Status: Acute Metabolic encephalopathy with probable underlying dementia, related to urinary tract infection and leg wounds, no evidence of primary central nervous system infection, new stroke, or ongoing seizure activity. Has NSTEMI. MRI negative for acute stroke. He is declining Note that he has elevated troponin and ESR Note failed swallow study, Dobhoff placed Plan Palliative care consult appreciated, full code Treat medical diseases Subjective no complaints Objective Vital Signs Date Time Temp Pulse Resp B/P (MAP) Pulse Ox O2 Delivery O2 Flow Rate FiO2 06/30/19 07:00 98.3 65 14 102/51 (68) 98 98.3 06/30/19 03:00 Room Air Intake and Output 06/30/19 06:59 Intake Total 3590 ml Balance 3590 ml Intake Oral 0 ml IV Total 200 ml Tube Feeding 2790 ml Blood Product 150 ml Other 450 ml # Bowel Movements 6 PHYSICAL EXAM Alert, follows commands, speaks, oriented only to person PERRL. EOMI. CN: no focal findings. Muscle tone: normal. Muscle strength: 4/5 DTR: 0-1+ Plantar reflex: Bilateral below the knee amputations Gait: not examined in bed. Sensory exam: no abnormal findings. No cerebellar signs elicited. Review of Relevant I have reviewed the following items soumya (where applicable) has been applied. Labs Laboratory Tests Test 06/28/19 11:41 06/28/19 17:04 06/29/19 08:23 06/29/19 09:15 Glucose (Fingerstick) 189 mg/dL (70-99) 117 mg/dL (70-99) 197 mg/dL (70-99) White Blood Count 11.1 x10^3/uL (4.0-11.0) Red Blood Count 3.46 x10^6/uL (4.30-5.70) Hemoglobin 9.6 g/dL (13.0-17.5) Hematocrit 30.3 % (39.0-53.0) Mean Corpuscular Volume 88 fL (79-100) Mean Corpuscular Hemoglobin 28 pg (25-35) Mean Corpuscular Hemoglobin Concent 32 g/dL (31-37) Red Cell Distribution Width 18.8 % (11.5-14.5) Platelet Count 406 x10^3/uL (140-400) Neutrophils (%) (Auto) 78 % (31-73) Lymphocytes (%) (Auto) 10 % (24-48) Monocytes (%) (Auto) 7 % (0-9) Eosinophils (%) (Auto) 5 % (0-3) Basophils (%) (Auto) 1 % (0-3) Neutrophils # (Auto) 8.7 x10^3/uL (1.8-7.7) Lymphocytes # (Auto) 1.1 x10^3/uL (1.0-4.8) Monocytes # (Auto) 0.8 x10^3/uL (0.0-1.1) Eosinophils # (Auto) 0.5 x10^3/uL (0.0-0.7) Basophils # (Auto) 0.1 x10^3/uL (0.0-0.2) Sodium Level 140 mmol/L (136-145) Potassium Level 4.0 mmol/L (3.5-5.1) Chloride Level 101 mmol/L (98-107) Carbon Dioxide Level 27 mmol/L (21-32) Anion Gap 12 (6-14) Blood Urea Nitrogen 69 mg/dL (8-26) Creatinine 6.8 mg/dL (0.7-1.3) Estimated GFR (Cockcroft-Gault) 9.6 Glucose Level 235 mg/dL (70-99) Calcium Level 9.4 mg/dL (8.5-10.1) Test 06/29/19 12:20 06/29/19 17:26 06/29/19 18:11 06/30/19 00:07 Glucose (Fingerstick) 208 mg/dL (70-99) 129 mg/dL (70-99) 101 mg/dL (70-99) 182 mg/dL (70-99) Laboratory Tests Test 06/29/19 09:15 06/29/19 12:20 06/29/19 17:26 06/29/19 18:11 White Blood Count 11.1 x10^3/uL (4.0-11.0) Red Blood Count 3.46 x10^6/uL (4.30-5.70) Hemoglobin 9.6 g/dL (13.0-17.5) Hematocrit 30.3 % (39.0-53.0) Mean Corpuscular Volume 88 fL (79-100) Mean Corpuscular Hemoglobin 28 pg (25-35) Mean Corpuscular Hemoglobin Concent 32 g/dL (31-37) Red Cell Distribution Width 18.8 % (11.5-14.5) Platelet Count 406 x10^3/uL (140-400) Neutrophils (%) (Auto) 78 % (31-73) Lymphocytes (%) (Auto) 10 % (24-48) Monocytes (%) (Auto) 7 % (0-9) Eosinophils (%) (Auto) 5 % (0-3) Basophils (%) (Auto) 1 % (0-3) Neutrophils # (Auto) 8.7 x10^3/uL (1.8-7.7) Lymphocytes # (Auto) 1.1 x10^3/uL (1.0-4.8) Monocytes # (Auto) 0.8 x10^3/uL (0.0-1.1) Eosinophils # (Auto) 0.5 x10^3/uL (0.0-0.7) Basophils # (Auto) 0.1 x10^3/uL (0.0-0.2) Sodium Level 140 mmol/L (136-145) Potassium Level 4.0 mmol/L (3.5-5.1) Chloride Level 101 mmol/L (98-107) Carbon Dioxide Level 27 mmol/L (21-32) Anion Gap 12 (6-14) Blood Urea Nitrogen 69 mg/dL (8-26) Creatinine 6.8 mg/dL (0.7-1.3) Estimated GFR (Cockcroft-Gault) 9.6 Glucose Level 235 mg/dL (70-99) Calcium Level 9.4 mg/dL (8.5-10.1) Glucose (Fingerstick) 208 mg/dL (70-99) 129 mg/dL (70-99) 101 mg/dL (70-99) Test 06/30/19 00:07 Glucose (Fingerstick) 182 mg/dL (70-99) Microbiology 06/23/19 Urine Culture - Final, Complete 06/23/19 Urine Culture Result 1 (TEREZA) - Final, Complete 06/22/19 Blood Culture - Final, Complete NO GROWTH AFTER 5 DAYS Medications Current Medications Vancomycin HCl 250 ml @ 250 mls/hr 1X ONCE IV ; Start 06/22/19 at 10:45; Stop 06/22/19 at 11:44; Status UNV Piperacillin Sod/ Tazobactam Sod 2.25 gm/Sodium Chloride 50 ml @ 100 mls/hr 1X ONCE IV Last administered on 06/22/19at 11:55; Start 06/22/19 at 10:45; Stop 06/22/19 at 11:14; Status DC Sodium Chloride 1,000 ml @ 100 mls/hr Q10H IV Last administered on 06/22/19at 11:55; Start 06/22/19 at 10:38; Stop 06/22/19 at 20:37; Status DC Vancomycin HCl 2 gm/Sodium Chloride 500 ml @ 250 mls/hr 1X ONCE IV Last administered on 06/22/19at 12:32; Start 06/22/19 at 11:30; Stop 06/22/19 at 13:29; Status DC Info (PHARMACY MONITORING -- do not chart) 1 each PRN DAILY PRN MC SEE COMMENTS; Start 06/22/19 at 16:30; Stop 06/24/19 at 11:38; Status DC Info (PHARMACY MONITORING -- do not chart) 1 each PRN DAILY PRN MC SEE COMMENTS; Start 06/22/19 at 16:30; Status UNV Sodium Chloride 1,000 ml @ 40 mls/hr Q24H IV Last administered on 06/24/19at 18:31; Start 06/22/19 at 17:30; Stop 06/25/19 at 19:44; Status DC Vancomycin HCl (Vanco Per Pharmacy) 1 each PRN DAILY PRN MC SEE COMMENTS Last administered on 06/28/19at 12:25; Start 06/22/19 at 17:30 Piperacillin Sod/ Tazobactam Sod (Zosyn Per Pharmacy) 1 each PRN DAILY PRN MC SEE COMMENTS; Start 06/22/19 at 17:30 Acetaminophen (Tylenol) 650 mg PRN Q6HRS PRN PO MILD PAIN / TEMP; Start 06/22/19 at 17:30; Stop 06/25/19 at 18:15; Status DC Ondansetron HCl (Zofran) 4 mg PRN Q6HRS PRN IV NAUSEA/VOMITING; Start 06/22/19 at 17:30 Clopidogrel Bisulfate (Plavix) 75 mg DAILYWBKFT PO Last administered on 06/29/19at 08:16; Start 06/23/19 at 08:00 Vitamin B Complex/ Vitamin C (Rosalie-Judah) 1 tab DAILY PO Last administered on 06/29/19at 08:16; Start 06/23/19 at 09:00 Allopurinol (Zyloprim) 100 mg DAILY PO ; Start 06/23/19 at 09:00; Stop 06/25/19 at 18:17; Status DC Atorvastatin Calcium (Lipitor) 40 mg QHS PO Last administered on 06/22/19at 21:37; Start 06/22/19 at 21:00; Stop 06/25/19 at 12:19; Status DC Pantoprazole Sodium (Protonix) 40 mg DAILYAC PO Last administered on 06/29/19at 08:16; Start 06/23/19 at 07:30 Cyanocobalamin (Vitamin B-12) 1,000 mcg DAILY PO Last administered on 06/29/19at 08:16; Start 06/23/19 at 09:00 Piperacillin Sod/ Tazobactam Sod 2.25 gm/Sodium Chloride 50 ml @ 100 mls/hr Q8HRS IV Last administered on 06/30/19at 05:47; Start 06/22/19 at 21:00 Heparin Sodium (Porcine) (Heparin Sodium) 5,000 unit BID SQ Last administered on 06/22/19at 21:37; Start 06/22/19 at 21:00; Stop 06/23/19 at 08:23; Status DC Insulin Human Lispro (HumaLOG) 0-6 UNITS BG 400-49... TIDWMEALS SQ Last administered on 06/29/19at 13:30; Start 06/23/19 at 08:00 Vancomycin HCl (Vancomycin Random Level) 1 each 1X ONCE MC Last administered on 06/24/19at 06:37; Start 06/24/19 at 06:00; Stop 06/24/19 at 06:01; Status DC Heparin Sodium/ Dextrose 500 ml @ 19.3 mls/hr CONT PRN IV SEE I/O RECORD; Start 06/23/19 at 08:30; Stop 06/23/19 at 14:53; Status DC Heparin Sodium (Porcine) (Heparin Sodium) 2,000 unit PRN Q6HRS PRN IV FOR UFH LEVEL LESS THAN 0.2; Start 06/23/19 at 08:30; Stop 06/23/19 at 14:53; Status DC Aspirin (Ecotrin) 325 mg 1X ONCE PO ; Start 06/23/19 at 10:30; Stop 06/23/19 at 10:31; Status DC Aspirin (Ecotrin) 81 mg DAILYWBKFT PO ; Start 06/24/19 at 08:00; Stop 06/25/19 at 18:16; Status DC Ondansetron HCl (Zofran) 4 mg PRN Q6HRS PRN IV NAUSEA/VOMITING; Start 06/24/19 at 07:00; Stop 06/25/19 at 06:59; Status DC Morphine Sulfate (Morphine Sulfate) 1 mg PRN Q10MIN PRN IV SEVERE PAIN 7-10; Start 06/24/19 at 07:00; Stop 06/24/19 at 10:06; Status DC Ringer's Solution 1,000 ml @ 30 mls/hr Q24H IV ; Start 06/24/19 at 07:00; Stop 06/24/19 at 18:59; Status DC Lidocaine HCl (Xylocaine-Mpf 1% 2ml Vial) 2 ml PRN 1X PRN ID PRIOR TO IV START; Start 06/24/19 at 07:00; Stop 06/25/19 at 06:59; Status DC Hydromorphone HCl (Dilaudid) 0.5 mg PRN Q10MIN PRN IV SEV PAIN, Second choice; Start 06/24/19 at 07:00; Stop 06/24/19 at 10:06; Status DC Info (Anti-Coagulation Monitoring By Pharmacy) 1 each PRN DAILY PRN MC SEE COMMENTS Last administered on 06/25/19at 16:28; Start 06/23/19 at 14:30 Enoxaparin Sodium (Lovenox Per Pharmacy Treatment Dosing) 1 each 1X PRN MC SEE COMMENTS; Start 06/23/19 at 14:45; Stop 06/23/19 at 21:00; Status DC Enoxaparin Sodium (Lovenox 80mg Syringe) 80 mg 1X ONCE SQ Last administered on 06/23/19at 15:16; Start 06/23/19 at 15:30; Stop 06/23/19 at 15:31; Status DC Heparin Sodium (Porcine) (Heparin Sodium) 5,000 unit Q12HR SQ Last administered on 06/29/19at 21:45; Start 06/24/19 at 11:00 Acetaminophen (Tylenol Supp) 650 mg PRN Q6HRS PRN PA MILD PAIN / TEMP Last administered on 06/24/19at 23:03; Start 06/24/19 at 10:30; Stop 06/28/19 at 11:19; Status DC Tramadol HCl (Ultram) 25 mg PRN Q6HRS PRN PO PAIN MODERATE PAIN Last administered on 06/28/19at 17:19; Start 06/24/19 at 10:30 Ketorolac Tromethamine (Toradol 15mg Vial) 15 mg PRN Q6HRS PRN IV PAIN Last administered on 06/28/19at 17:19; Start 06/24/19 at 10:30; Stop 06/29/19 at 10:29; Status DC Sodium Chloride 1,000 ml @ 1,000 mls/hr Q1H PRN IV hypotension; Start 06/24/19 at 11:27; Stop 06/24/19 at 17:26; Status DC Sodium Chloride 1,000 ml @ 400 mls/hr Q2H30M PRN IV PATENCY; Start 06/24/19 at 11:27; Stop 06/24/19 at 23:26; Status DC Info (PHARMACY MONITORING -- do not chart) 1 each PRN DAILY PRN MC SEE COMMENTS; Start 06/24/19 at 11:30 Info (PHARMACY MONITORING -- do not chart) 1 each PRN DAILY PRN MC SEE COMMENTS; Start 06/24/19 at 11:30; Status UNV Vancomycin HCl 500 mg/Sodium Chloride 100 ml @ 100 mls/hr QMWF IV Last administered on 06/29/19at 21:45; Start 06/24/19 at 16:00 Dextrose (Dextrose 50%-Water Syringe) 12.5 gm PRN Q15MIN PRN IV SEE COMMENTS Last administered on 06/25/19at 01:41; Start 06/25/19 at 01:30 Dextrose 250 ml PRN Q15MIN PRN IV SEE COMMENTS; Start 06/25/19 at 01:30 Micafungin Sodium 100 mg/Dextrose 100 ml @ 100 mls/hr Q24H IV Last administered on 06/29/19at 08:16; Start 06/25/19 at 09:00 Metoprolol Tartrate (Lopressor Vial) 2.5 mg Q6HRS IVP Last administered on 06/27/19at 17:59; Start 06/25/19 at 18:00; Stop 06/28/19 at 11:19; Status DC Atorvastatin Calcium (Lipitor) 10 mg QHS PEG Last administered on 06/29/19at 21:45; Start 06/25/19 at 21:00 Ondansetron HCl (Zofran) 4 mg PRN Q6HRS PRN IV NAUSEA/VOMITING; Start 06/26/19 at 07:00; Stop 06/27/19 at 06:59; Status DC Morphine Sulfate (Morphine Sulfate) 1 mg PRN Q10MIN PRN IV SEVERE PAIN 7-10; Start 06/26/19 at 07:00; Stop 06/27/19 at 06:59; Status DC Ringer's Solution 1,000 ml @ 30 mls/hr Q24H IV ; Start 06/26/19 at 07:00; Stop 06/26/19 at 18:59; Status DC Lidocaine HCl (Xylocaine-Mpf 1% 2ml Vial) 2 ml PRN 1X PRN ID PRIOR TO IV START; Start 06/26/19 at 07:00; Stop 06/27/19 at 06:59; Status DC Hydromorphone HCl (Dilaudid) 0.5 mg PRN Q10MIN PRN IV SEV PAIN, Second choice; Start 06/26/19 at 07:00; Stop 06/27/19 at 06:59; Status DC Acetaminophen (Tylenol) 650 mg PRN Q6HRS PRN PEG MILD PAIN / TEMP Last administ ered on 06/29/19at 08:16; Start 06/25/19 at 18:15 Aspirin (Children'S Aspirin) 81 mg DAILYWBKFT PEG Last administered on 06/29/19 at 08:16; Start 06/26/19 at 08:00 Allopurinol (Zyloprim) 100 mg DAILY PEG Last administered on 06/29/19at 08:16; Start 06/25/19 at 18:17 Quetiapine Fumarate (SEROquel) 12.5 mg PRN Q8HRS PRN PO PSYCHOTIC BEHAVIOR Last administered on 06/28/19at 20:07; Start 06/25/19 at 19:45 Vitamin A/Vitamin D (Vitamin A & D Ointment) 1 héctor PRN BID PRN TP SKIN PROTECTION Last administered on 06/29/19at 12:42; Start 06/26/19 at 06:00 Sodium Chloride 1,000 ml @ 1,000 mls/hr Q1H PRN IV hypotension; Start 06/26/19 at 12:41; Stop 06/26/19 at 18:40; Status DC Info (PHARMACY MONITORING -- do not chart) 1 each PRN DAILY PRN MC SEE COMMENTS; Start 06/26/19 at 12:45; Status UNV Info (PHARMACY MONITORING -- do not chart) 1 each PRN DAILY PRN MC SEE COMMENTS; Start 06/26/19 at 12:45; Status Cancel Sodium Chloride 1,000 ml @ 1,000 mls/hr Q1H PRN IV hypotension; Start 06/29/19 at 12:00; Stop 06/29/19 at 17:59; Status DC Sodium Chloride 1,000 ml @ 400 mls/hr Q2H30M PRN IV PATENCY; Start 06/29/19 at 12:00; Stop 06/29/19 at 23:59; Status DC Info (PHARMACY MONITORING -- do not chart) 1 each PRN DAILY PRN MC SEE COMMENTS; Start 06/29/19 at 16:00; Status UNV Info (PHARMACY MONITORING -- do not chart) 1 each PRN DAILY PRN MC SEE COMMENTS; Start 06/29/19 at 16:00; Status Cancel Active Scripts Active [place] 5-325 Tablet (Acetaminophen/Hydrocodone Bitart) 1 Each Tablet 0.5 Tab PO Q4HRS Zyvox (Linezolid) 600 Mg Tablet 600 Mg PO BID 4 Days Amox Tr-K Clv 500-125 Mg Tab (Amoxicillin/Potassium Clav) 1 Each Tablet 1 Tab PO DAILY 4 Days Tramadol Hcl 50 Mg Tablet 50 Mg PO PRN Q6HRS PRN Ondansetron Odt (Ondansetron) 4 Mg Tab.rapdis 4 Mg PO Q6HRS PRN Humalog (Insulin Lispro) 100 Unit/1 Ml Insuln.pen 0 Units SQ TIDWMEALS 30 Days BG 150-199= 1 units 200-299= 2 units 300-399= 4 units 400-499= 6 units ac tid sliding scale Reported Omeprazole 20 Mg Tablet.dr 1 Tab PO DAILY Vitamin D3 (Cholecalciferol (Vitamin D3)) 1,000 Unit Tablet 1 Tab PO DAILY Vitamin B-12 (Cyanocobalamin (Vitamin B-12)) 1,000 Mcg Tablet 1 Tab PO DAILY Senna (Sennosides) 8.6 Mg Tablet 8.6 Mg PO PRN DAILY PRN 2 tabs Renvela (Sevelamer Carbonate) 800 Mg Tablet 800 Mg PO TIDWMEALS Renal Caps Softgel (Folic Acid/Vitamin B Comp W-C) 1 Mg Capsule 1 Mg PO DAILY Reglan (Metoclopramide Hcl) 10 Mg Tablet 5 Mg PO TID Probiotic (Lactobacillus Acidophilus) 1 Each Capsule 1 Each PO BID Milk Of Magnesia (Magnesium Hydroxide) 400 Mg/5 Ml Oral.susp 400 Mg PO PRN DAILY PRN Lipitor (Atorvastatin Calcium) 40 Mg Tablet 1 Tab PO QHS Humalog (Insulin Lispro) 100 Unit/1 Ml Insuln.pen 100 Unit SQ TIDBFRMEAL 150-199=1 unit 200-299=2 units 300-399=4 units 100-499=6 units Clopidogrel (Clopidogrel Bisulfate) 75 Mg Tablet 1 Tab PO DAILY Duoneb 0.5-3(2.5) Mg/3 Ml (Albuterol/Ipratropium) 3 Ml Ampul.neb 3 Ml NEB PRN Q4HRS PRN Lac-Hydrin Five (Ammonium Lactate) 226 Gm Lotion 226 Gm TP BID Allopurinol 100 Mg Tablet 1 Tab PO DAILY Tylenol (Acetaminophen) 325 Mg Tablet 1 Tab PO PRN Q4HRS Aspirin 81 Mg Tab.chew 81 Mg PO DAILY Vitals/I & O Vital Sign - Last 24 Hours 06/29/19 06/29/19 06/29/19 06/30/19 11:00 19:23 22:40 03:00 Temp 98.8 98.1 98.4 99.4 98.8 98.1 98.4 99.4 Pulse 75 98 87 77 Resp 16 18 20 20 B/P (MAP) 110/60 (77) 143/78 (99) 101/46 (64) 101/44 (63) Pulse Ox 95 96 100 100 O2 Delivery Room Air Room Air Room Air Room Air 06/30/19 07:00 Temp 98.3 98.3 Pulse 65 Resp 14 B/P (MAP) 102/51 (68) Pulse Ox 98 Intake and Output 06/29/19 06/29/19 06/30/19 14:59 22:59 06:59 Intake Total 330 ml 2718 ml 542 ml Balance 330 ml 2718 ml 542 ml BAN TORRES MD Jun 30, 2019 08:34
--- NOTE | 2019-06-30 08:41 | PDOC ---
Provider Note Provider Note Vascular S: Patient resting in bed. Limited verbal communication from patient. O: Awake VSS, afebrile Left BKA wound with some slough, areas of healthy tissue, small area posterior wound very close to the bone, no bogginess or fluctuance. No exposed bone. Incisional eschar laterally. Sutures remain in place. A/P:78-year-old male with peripheral arterial disease and left below knee amputation site wound and incisional necrosis. Recommend continued antibiotics and local wound care. The patient would benefit from surgical debridement and wound VAC placement when patient is medically stable. Will discuss the possibility of placing wound vac now with WC team. Discussed plan of care with patient's nurse. UTI/cystitis Metabolic Encephalopathy NSTEMI ESRD on HD Dysphagia Continue supportive care, palliative care to address patient and family's goals. Meeting with family today. Recommend proceeding with surgical debridement if family decides against palliative care. STANLEY DUMONT APRN Jun 30, 2019 08:41
[2019-06-30] MEDS: PANTOPRAZOLE 40 MG TABLET.DR. PO SCH (09:02)
[2019-06-30] MEDS: CLOPIDOGREL BISULFATE 75 MG TABLET PO SCH (09:02)
[2019-06-30] MEDS: ASPIRIN CHEWABLE 81 MG TABLET. PEG SCH (09:03)
[2019-06-30] MEDS: CYANOCOBALAMIN (VITAMIN B-12) 1,000 MCG TABLET. PO SCH (09:03)
[2019-06-30] MEDS: FOLIC/VIT B COMP W-C (RENAL) TABLET. PO SCH (09:03)
[2019-06-30] MEDS: ALLOPURINOL 100 MG TABLET. PEG SCH (09:03)
[2019-06-30] MEDS: MICAFUNGIN 100 MG in IV DEXTROSE 5% 100ML 100 ML IV SCH (09:26)
[2019-06-30] MEDS: HEPARIN for SUB-Q USE 5,000 UNIT/ML VIAL. SQ SCH ×2 (09:32→21:10)
[2019-06-30] MEDS: INSULIN LISPRO 300 UNITS/3 ML VIAL. SQ SCH ×3 (09:33→17:00)
--- NOTE | 2019-06-30 10:08 | PDOC ---
PROGRESS NOTES Subjective Subjective he is more alert . eyes are open and talking . has diarrhea. lab reviewed. daughter visiting soon. Objective Objective Vital Signs Date Time Temp Pulse Resp B/P (MAP) Pulse Ox O2 Delivery O2 Flow Rate FiO2 06/30/19 07:00 98.3 65 14 102/51 (68) 98 98.3 06/30/19 03:00 Room Air Intake and Output 06/30/19 06:59 Intake Total 3590 ml Balance 3590 ml Intake Oral 0 ml IV Total 200 ml Tube Feeding 2790 ml Blood Product 150 ml Other 450 ml # Bowel Movements 6 Physical Exam Abdomen: Soft Heart: Regular rate, Normal S1, Normal S2 Extremities: Other (bilateral BKA) General: Alert HEENT: Atraumatic Lungs: Clear to auscultation Neuro: Normal speech Psych/Mental Status: Mood NL Skin: No rashes Assessment Assessment Problemsmetabolic encephalopathy. better 2. Pyuria, consistent with urinary tract infection. pus in urine. urine culture grew 10-25K yeast 3. Bilateral below-knee amputation. 4. left below-knee amputation stump wound infection 5. Diabetes mellitus type 2. 6. Peripheral arterial disease. 7. End-stage renal disease, on hemodialysis. m-w-f 8. paroxysmal atrial fibrillation. in nsr. not a coumadin candidate. recent hx of retroperitoneal bleed on anticoagulants and fall risk. 9. Severe protein-calorie malnutrition. 10. Anemia of chronic disease. NSTEMI oropharyngeal dysphagia on dobhoff tube feeding diarrhea Medical Problems: (1) Altered mental status Status: Acute (2) Anemia in chronic illness Status: Chronic (3) CAD (coronary artery disease) Status: Chronic (4) Chronic a-fib Status: Chronic (5) DM2 (diabetes mellitus, type 2) Status: Chronic (6) ESRD (end stage renal disease) Status: Acute (7) HTN (hypertension) Status: Chronic (8) Metabolic encephalopathy Status: Acute (9) NSTEMI (non-ST elevated myocardial infarction) Status: Acute (10) Paroxysmal A-fib Status: Acute (11) Peripheral artery disease Status: Chronic (12) Severe protein-calorie malnutrition Status: Chronic (13) SSS (sick sinus syndrome) Status: Chronic (14) UTI (urinary tract infection) Status: Acute Plan Plan of Care wound care continue iv antibiotics hemodialysis tomorrow wound debridement and wound vac if family wants to proceed continue dobhoff tube feeding stool for c. diff toxin Comment Review of Relevant I have reviewed the following items soumya (where applicable) has been applied. Labs Laboratory Tests Test 06/28/19 11:41 06/28/19 17:04 06/29/19 08:23 06/29/19 09:15 Glucose (Fingerstick) 189 mg/dL (70-99) 117 mg/dL (70-99) 197 mg/dL (70-99) White Blood Count 11.1 x10^3/uL (4.0-11.0) Red Blood Count 3.46 x10^6/uL (4.30-5.70) Hemoglobin 9.6 g/dL (13.0-17.5) Hematocrit 30.3 % (39.0-53.0) Mean Corpuscular Volume 88 fL (79-100) Mean Corpuscular Hemoglobin 28 pg (25-35) Mean Corpuscular Hemoglobin Concent 32 g/dL (31-37) Red Cell Distribution Width 18.8 % (11.5-14.5) Platelet Count 406 x10^3/uL (140-400) Neutrophils (%) (Auto) 78 % (31-73) Lymphocytes (%) (Auto) 10 % (24-48) Monocytes (%) (Auto) 7 % (0-9) Eosinophils (%) (Auto) 5 % (0-3) Basophils (%) (Auto) 1 % (0-3) Neutrophils # (Auto) 8.7 x10^3/uL (1.8-7.7) Lymphocytes # (Auto) 1.1 x10^3/uL (1.0-4.8) Monocytes # (Auto) 0.8 x10^3/uL (0.0-1.1) Eosinophils # (Auto) 0.5 x10^3/uL (0.0-0.7) Basophils # (Auto) 0.1 x10^3/uL (0.0-0.2) Sodium Level 140 mmol/L (136-145) Potassium Level 4.0 mmol/L (3.5-5.1) Chloride Level 101 mmol/L (98-107) Carbon Dioxide Level 27 mmol/L (21-32) Anion Gap 12 (6-14) Blood Urea Nitrogen 69 mg/dL (8-26) Creatinine 6.8 mg/dL (0.7-1.3) Estimated GFR (Cockcroft-Gault) 9.6 Glucose Level 235 mg/dL (70-99) Calcium Level 9.4 mg/dL (8.5-10.1) Test 06/29/19 12:20 06/29/19 17:26 06/29/19 18:11 06/30/19 00:07 Glucose (Fingerstick) 208 mg/dL (70-99) 129 mg/dL (70-99) 101 mg/dL (70-99) 182 mg/dL (70-99) Laboratory Tests Test 06/29/19 12:20 06/29/19 17:26 06/29/19 18:11 06/30/19 00:07 Glucose (Fingerstick) 208 mg/dL (70-99) 129 mg/dL (70-99) 101 mg/dL (70-99) 182 mg/dL (70-99) Microbiology 06/23/19 Urine Culture - Final, Complete 06/23/19 Urine Culture Result 1 (TEREZA) - Final, Complete 06/22/19 Blood Culture - Final, Complete NO GROWTH AFTER 5 DAYS Medications Current Medications Vancomycin HCl 250 ml @ 250 mls/hr 1X ONCE IV ; Start 06/22/19 at 10:45; Stop 06/22/19 at 11:44; Status UNV Piperacillin Sod/ Tazobactam Sod 2.25 gm/Sodium Chloride 50 ml @ 100 mls/hr 1X ONCE IV Last administered on 06/22/19at 11:55; Start 06/22/19 at 10:45; Stop 06/22/19 at 11:14; Status DC Sodium Chloride 1,000 ml @ 100 mls/hr Q10H IV Last administered on 06/22/19at 11:55; Start 06/22/19 at 10:38; Stop 06/22/19 at 20:37; Status DC Vancomycin HCl 2 gm/Sodium Chloride 500 ml @ 250 mls/hr 1X ONCE IV Last administered on 06/22/19at 12:32; Start 06/22/19 at 11:30; Stop 06/22/19 at 13:29; Status DC Info (PHARMACY MONITORING -- do not chart) 1 each PRN DAILY PRN MC SEE COMMENTS; Start 06/22/19 at 16:30; Stop 06/24/19 at 11:38; Status DC Info (PHARMACY MONITORING -- do not chart) 1 each PRN DAILY PRN MC SEE COMMENTS; Start 06/22/19 at 16:30; Status UNV Sodium Chloride 1,000 ml @ 40 mls/hr Q24H IV Last administered on 06/24/19at 18:31; Start 06/22/19 at 17:30; Stop 06/25/19 at 19:44; Status DC Vancomycin HCl (Vanco Per Pharmacy) 1 each PRN DAILY PRN MC SEE COMMENTS Last administered on 06/28/19at 12:25; Start 06/22/19 at 17:30 Piperacillin Sod/ Tazobactam Sod (Zosyn Per Pharmacy) 1 each PRN DAILY PRN MC SEE COMMENTS; Start 06/22/19 at 17:30 Acetaminophen (Tylenol) 650 mg PRN Q6HRS PRN PO MILD PAIN / TEMP; Start 06/22/19 at 17:30; Stop 06/25/19 at 18:15; Status DC Ondansetron HCl (Zofran) 4 mg PRN Q6HRS PRN IV NAUSEA/VOMITING; Start 06/22/19 at 17:30 Clopidogrel Bisulfate (Plavix) 75 mg DAILYWBKFT PO Last administered on 06/30/19at 09:36; Start 06/23/19 at 08:00 Vitamin B Complex/ Vitamin C (Carlos-Moses) 1 tab DAILY PO Last administered on 06/30/19at 09:36; Start 06/23/19 at 09:00 Allopurinol (Zyloprim) 100 mg DAILY PO ; Start 06/23/19 at 09:00; Stop 06/25/19 at 18:17; Status DC Atorvastatin Calcium (Lipitor) 40 mg QHS PO Last administered on 06/22/19at 21:37; Start 06/22/19 at 21:00; Stop 06/25/19 at 12:19; Status DC Pantoprazole Sodium (Protonix) 40 mg DAILYAC PO Last administered on 06/30/19at 09:36; Start 06/23/19 at 07:30 Cyanocobalamin (Vitamin B-12) 1,000 mcg DAILY PO Last administered on 06/30/19at 09:36; Start 06/23/19 at 09:00 Piperacillin Sod/ Tazobactam Sod 2.25 gm/Sodium Chloride 50 ml @ 100 mls/hr Q8HRS IV Last administered on 06/30/19at 05:47; Start 06/22/19 at 21:00 Heparin Sodium (Porcine) (Heparin Sodium) 5,000 unit BID SQ Last administered on 06/22/19at 21:37; Start 06/22/19 at 21:00; Stop 06/23/19 at 08:23; Status DC Insulin Human Lispro (HumaLOG) 0-6 UNITS BG 400-49... TIDWMEALS SQ Last administered on 06/30/19at 09:36; Start 06/23/19 at 08:00 Vancomycin HCl (Vancomycin Random Level) 1 each 1X ONCE MC Last administered on 06/24/19at 06:37; Start 06/24/19 at 06:00; Stop 06/24/19 at 06:01; Status DC Heparin Sodium/ Dextrose 500 ml @ 19.3 mls/hr CONT PRN IV SEE I/O RECORD; Start 06/23/19 at 08:30; Stop 06/23/19 at 14:53; Status DC Heparin Sodium (Porcine) (Heparin Sodium) 2,000 unit PRN Q6HRS PRN IV FOR UFH LEVEL LESS THAN 0.2; Start 06/23/19 at 08:30; Stop 06/23/19 at 14:53; Status DC Aspirin (Ecotrin) 325 mg 1X ONCE PO ; Start 06/23/19 at 10:30; Stop 06/23/19 at 10:31; Status DC Aspirin (Ecotrin) 81 mg DAILYWBKFT PO ; Start 06/24/19 at 08:00; Stop 06/25/19 at 18:16; Status DC Ondansetron HCl (Zofran) 4 mg PRN Q6HRS PRN IV NAUSEA/VOMITING; Start 06/24/19 at 07:00; Stop 06/25/19 at 06:59; Status DC Morphine Sulfate (Morphine Sulfate) 1 mg PRN Q10MIN PRN IV SEVERE PAIN 7-10; Start 06/24/19 at 07:00; Stop 06/24/19 at 10:06; Status DC Ringer's Solution 1,000 ml @ 30 mls/hr Q24H IV ; Start 06/24/19 at 07:00; Stop 06/24/19 at 18:59; Status DC Lidocaine HCl (Xylocaine-Mpf 1% 2ml Vial) 2 ml PRN 1X PRN ID PRIOR TO IV START; Start 06/24/19 at 07:00; Stop 06/25/19 at 06:59; Status DC Hydromorphone HCl (Dilaudid) 0.5 mg PRN Q10MIN PRN IV SEV PAIN, Second choice; Start 06/24/19 at 07:00; Stop 06/24/19 at 10:06; Status DC Info (Anti-Coagulation Monitoring By Pharmacy) 1 each PRN DAILY PRN MC SEE COMMENTS Last administered on 06/25/19at 16:28; Start 06/23/19 at 14:30 Enoxaparin Sodium (Lovenox Per Pharmacy Treatment Dosing) 1 each 1X PRN MC SEE COMMENTS; Start 06/23/19 at 14:45; Stop 06/23/19 at 21:00; Status DC Enoxaparin Sodium (Lovenox 80mg Syringe) 80 mg 1X ONCE SQ Last administered on 06/23/19at 15:16; Start 06/23/19 at 15:30; Stop 06/23/19 at 15:31; Status DC Heparin Sodium (Porcine) (Heparin Sodium) 5,000 unit Q12HR SQ Last administered on 06/30/19at 09:36; Start 06/24/19 at 11:00 Acetaminophen (Tylenol Supp) 650 mg PRN Q6HRS PRN ME MILD PAIN / TEMP Last administered on 06/24/19at 23:03; Start 06/24/19 at 10:30; Stop 06/28/19 at 11:19; Status DC Tramadol HCl (Ultram) 25 mg PRN Q6HRS PRN PO PAIN MODERATE PAIN Last administered on 06/28/19at 17:19; Start 06/24/19 at 10:30 Ketorolac Tromethamine (Toradol 15mg Vial) 15 mg PRN Q6HRS PRN IV PAIN Last administered on 06/28/19at 17:19; Start 06/24/19 at 10:30; Stop 06/29/19 at 10:29; Status DC Sodium Chloride 1,000 ml @ 1,000 mls/hr Q1H PRN IV hypotension; Start 06/24/19 at 11:27; Stop 06/24/19 at 17:26; Status DC Sodium Chloride 1,000 ml @ 400 mls/hr Q2H30M PRN IV PATENCY; Start 06/24/19 at 11:27; Stop 06/24/19 at 23:26; Status DC Info (PHARMACY MONITORING -- do not chart) 1 each PRN DAILY PRN MC SEE COMMENTS; Start 06/24/19 at 11:30 Info (PHARMACY MONITORING -- do not chart) 1 each PRN DAILY PRN MC SEE COMMENTS; Start 06/24/19 at 11:30; Status UNV Vancomycin HCl 500 mg/Sodium Chloride 100 ml @ 100 mls/hr QMWF IV Last administered on 06/29/19at 21:45; Start 06/24/19 at 16:00 Dextrose (Dextrose 50%-Water Syringe) 12.5 gm PRN Q15MIN PRN IV SEE COMMENTS Last administered on 06/25/19at 01:41; Start 06/25/19 at 01:30 Dextrose 250 ml PRN Q15MIN PRN IV SEE COMMENTS; Start 06/25/19 at 01:30 Micafungin Sodium 100 mg/Dextrose 100 ml @ 100 mls/hr Q24H IV Last administered on 06/30/19at 09:36; Start 06/25/19 at 09:00 Metoprolol Tartrate (Lopressor Vial) 2.5 mg Q6HRS IVP Last administered on 06/27/19at 17:59; Start 06/25/19 at 18:00; Stop 06/28/19 at 11:19; Status DC Atorvastatin Calcium (Lipitor) 10 mg QHS PEG Last administered on 06/29/19at 21:45; Start 06/25/19 at 21:00 Ondansetron HCl (Zofran) 4 mg PRN Q6HRS PRN IV NAUSEA/VOMITING; Start 06/26/19 at 07:00; Stop 06/27/19 at 06:59; Status DC Morphine Sulfate (Morphine Sulfate) 1 mg PRN Q10MIN PRN IV SEVERE PAIN 7-10; Start 06/26/19 at 07:00; Stop 06/27/19 at 06:59; Status DC Ringer's Solution 1,000 ml @ 30 mls/hr Q24H IV ; Start 06/26/19 at 07:00; Stop 06/26/19 at 18:59; Status DC Lidocaine HCl (Xylocaine-Mpf 1% 2ml Vial) 2 ml PRN 1X PRN ID PRIOR TO IV START; Start 06/26/19 at 07:00; Stop 06/27/19 at 06:59; Status DC Hydromorphone HCl (Dilaudid) 0.5 mg PRN Q10MIN PRN IV SEV PAIN, Second choice; Start 06/26/19 at 07:00; Stop 06/27/19 at 06:59; Status DC Acetaminophen (Tylenol) 650 mg PRN Q6HRS PRN PEG MILD PAIN / TEMP Last administered on 06/29/19at 08:16; Start 06/25/19 at 18:15 Aspirin (Children'S Aspirin) 81 mg DAILYWBKFT PEG Last administered on 06/30/19at 09:36; Start 06/26/19 at 08:00 Allopurinol (Zyloprim) 100 mg DAILY PEG Last administered on 06/30/19at 09:36; Start 06/25/19 at 18:17 Quetiapine Fumarate (SEROquel) 12.5 mg PRN Q8HRS PRN PO PSYCHOTIC BEHAVIOR Last administered on 06/28/19at 20:07; Start 06/25/19 at 19:45 Vitamin A/Vitamin D (Vitamin A & D Ointment) 1 héctor PRN BID PRN TP SKIN PROTECTION Last administered on 06/29/19at 12:42; Start 06/26/19 at 06:00 Sodium Chloride 1,000 ml @ 1,000 mls/hr Q1H PRN IV hypotension; Start 06/26/19 at 12:41; Stop 06/26/19 at 18:40; Status DC Info (PHARMACY MONITORING -- do not chart) 1 each PRN DAILY PRN MC SEE COMMENTS; Start 06/26/19 at 12:45; Status UNV Info (PHARMACY MONITORING -- do not chart) 1 each PRN DAILY PRN MC SEE COMMENTS; Start 06/26/19 at 12:45; Status Cancel Sodium Chloride 1,000 ml @ 1,000 mls/hr Q1H PRN IV hypotension; Start 06/29/19 at 12:00; Stop 06/29/19 at 17:59; Status DC Sodium Chloride 1,000 ml @ 400 mls/hr Q2H30M PRN IV PATENCY; Start 06/29/19 at 12:00; Stop 06/29/19 at 23:59; Status DC Info (PHARMACY MONITORING -- do not chart) 1 each PRN DAILY PRN MC SEE COMMENTS; Start 06/29/19 at 16:00; Status UNV Info (PHARMACY MONITORING -- do not chart) 1 each PRN DAILY PRN MC SEE COMMENTS; Start 06/29/19 at 16:00; Status Cancel Active Scripts Active [facility] 5-325 Tablet (Acetaminophen/Hydrocodone Bitart) 1 Each Tablet 0.5 Tab PO Q4HRS Zyvox (Linezolid) 600 Mg Tablet 600 Mg PO BID 4 Days Amox Tr-K Clv 500-125 Mg Tab (Amoxicillin/Potassium Clav) 1 Each Tablet 1 Tab PO DAILY 4 Days Tramadol Hcl 50 Mg Tablet 50 Mg PO PRN Q6HRS PRN Ondansetron Odt (Ondansetron) 4 Mg Tab.rapdis 4 Mg PO Q6HRS PRN Humalog (Insulin Lispro) 100 Unit/1 Ml Insuln.pen 0 Units SQ TIDWMEALS 30 Days BG 150-199= 1 units 200-299= 2 units 300-399= 4 units 400-499= 6 units ac tid sliding scale Reported Omeprazole 20 Mg Tablet.dr 1 Tab PO DAILY Vitamin D3 (Cholecalciferol (Vitamin D3)) 1,000 Unit Tablet 1 Tab PO DAILY Vitamin B-12 (Cyanocobalamin (Vitamin B-12)) 1,000 Mcg Tablet 1 Tab PO DAILY Senna (Sennosides) 8.6 Mg Tablet 8.6 Mg PO PRN DAILY PRN 2 tabs Renvela (Sevelamer Carbonate) 800 Mg Tablet 800 Mg PO TIDWMEALS Renal Caps Softgel (Folic Acid/Vitamin B Comp W-C) 1 Mg Capsule 1 Mg PO DAILY Reglan (Metoclopramide Hcl) 10 Mg Tablet 5 Mg PO TID Probiotic (Lactobacillus Acidophilus) 1 Each Capsule 1 Each PO BID Milk Of Magnesia (Magnesium Hydroxide) 400 Mg/5 Ml Oral.susp 400 Mg PO PRN DAILY PRN Lipitor (Atorvastatin Calcium) 40 Mg Tablet 1 Tab PO QHS Humalog (Insulin Lispro) 100 Unit/1 Ml Insuln.pen 100 Unit SQ TIDBFRMEAL 150-199=1 unit 200-299=2 units 300-399=4 units 100-499=6 units Clopidogrel (Clopidogrel Bisulfate) 75 Mg Tablet 1 Tab PO DAILY Duoneb 0.5-3(2.5) Mg/3 Ml (Albuterol/Ipratropium) 3 Ml Ampul.neb 3 Ml NEB PRN Q4HRS PRN Lac-Hydrin Five (Ammonium Lactate) 226 Gm Lotion 226 Gm TP BID Allopurinol 100 Mg Tablet 1 Tab PO DAILY Tylenol (Acetaminophen) 325 Mg Tablet 1 Tab PO PRN Q4HRS Aspirin 81 Mg Tab.chew 81 Mg PO DAILY Vitals/I & O Vital Sign - Last 24 Hours 06/29/19 06/29/19 06/29/19 06/30/19 11:00 19:23 22:40 03:00 Temp 98.8 98.1 98.4 99.4 98.8 98.1 98.4 99.4 Pulse 75 98 87 77 Resp 16 18 20 20 B/P (MAP) 110/60 (77) 143/78 (99) 101/46 (64) 101/44 (63) Pulse Ox 95 96 100 100 O2 Delivery Room Air Room Air Room Air Room Air 06/30/19 07:00 Temp 98.3 98.3 Pulse 65 Resp 14 B/P (MAP) 102/51 (68) Pulse Ox 98 Intake and Output 06/29/19 06/29/19 06/30/19 14:59 22:59 06:59 Intake Total 330 ml 2718 ml 542 ml Balance 330 ml 2718 ml 542 ml Nutrition Consultation Dietary Evaluation: Recommendations by RD: Increase Calorie Intake, Protein supplementation Comments: REC continue increasing TF rate 10 ml q8 hrs as tolerated to goal of Nepro@goal rate 40 ml/hr w/150 ml water flushes q6 hrs per REC Marcell BID via feeding tube, mix each packet w/4 oz water to dissolve, flush tube w/30 ml water before and after each packet - dietary aware Continue w/carlos-moses for additional vitamin needs for skin healing Expected Outcomes/Goals: TF intiation/infusion to meet >75% est needs - not met, goal ongoing Malnutrition Findings: Food and Nutrition Intake (Sev: <50% est energy req 5days Weight Status: Appropriate SAM OLMOS MD Jun 30, 2019 10:08
[2019-06-30] MEDS: ANTI-COAG MONITOR BY PHARMACY. MC PRN (10:16)
[2019-06-30] MEDS: VANCOMYCIN PER PHARMACY MC PRN (10:17)
[2019-06-30 11:00] VITALS: BP 95/48
--- NOTE | 2019-06-30 11:16 | PDOC ---
SUBJECTIVE ROS Stable , Denies pain/nausea/SOA OBJECTIVE Vital Signs Vital Signs Date Time Temp Pulse Resp B/P (MAP) Pulse Ox O2 Delivery O2 Flow Rate FiO2 06/30/19 11:00 97.7 66 16 95/48 (64) 100 Room Air 97.7 I & 0 Intake and Output 06/30/19 06:59 Intake Total 3590 ml Balance 3590 ml Intake Oral 0 ml IV Total 200 ml Tube Feeding 2790 ml Blood Product 150 ml Other 450 ml # Bowel Movements 6 PHYSICAL EXAM Physical Exam GENERAL: NAD NECK: Supple. HEART: S1, S2. LUNGS: Clear bilaterally. ABDOMEN: Soft, nontender, obese. Bowel sounds present. EXTREMITIES: Right below knee amputation, left lower extremity amputation stump has a wound with a necrotic area. Right upper extremity AV fistula site Neuro- Moves upper extremity, answers a few questions, follows a few commands. Allan + DIAGNOSIS/ASSESSMENT Assessment & Plan ESRD - On HD MWF Labs (06/29) and Vol status stable, no indication for HD today Urinary tract infection- urine had pus like appearance when allan placement was attempted, Allan in place, On Abx Altered mental status, improving. Left below knee amputation site infected wound seen by Vascular, awaiting debridement when stable Anemia of chronic disease. Severe protein-calorie malnutrition. Chronic atrial fibrillation. COMMENT/RELEVANT DATA Meds Current Medications Medications (Trade) Dose Ordered Sig/Mitzi Start Time Stop Time Status Last Admin Dose Admin Acetaminophen (Tylenol Supp) 650 mg PRN Q6HRS PRN 06/24/19 10:30 06/28/19 11:19 DC 06/24/19 23:03 650 MG Acetaminophen (Tylenol) 650 mg PRN Q6HRS PRN 06/25/19 18:15 06/29/19 08:16 650 MG Allopurinol (Zyloprim) 100 mg DAILY 06/25/19 18:17 06/30/19 09:36 100 MG Aspirin (Children'S Aspirin) 81 mg DAILYWBKFT 06/26/19 08:00 06/30/19 09:36 81 MG Aspirin (Ecotrin) 81 mg DAILYWBKFT 06/24/19 08:00 06/25/19 18:16 DC Atorvastatin Calcium (Lipitor) 10 mg QHS 06/25/19 21:00 06/29/19 21:45 10 MG Clopidogrel Bisulfate (Plavix) 75 mg DAILYWBKFT 06/23/19 08:00 06/30/19 09:36 75 MG Cyanocobalamin (Vitamin B-12) 1,000 mcg DAILY 06/23/19 09:00 06/30/19 09:36 1,000 MCG Dextrose 250 ml PRN Q15MIN PRN 06/25/19 01:30 Dextrose (Dextrose 50%-Water Syringe) 12.5 gm PRN Q15MIN PRN 06/25/19 01:30 06/25/19 01:41 12.5 GM Enoxaparin Sodium (Lovenox 80mg Syringe) 80 mg 1X ONCE 06/23/19 15:30 06/23/19 15:31 DC 06/23/19 15:16 80 MG Enoxaparin Sodium (Lovenox Per Pharmacy Treatment Dosing) 1 each 1X PRN 06/23/19 14:45 06/23/19 21:00 DC Heparin Sodium (Porcine) (Heparin Sodium) 5,000 unit Q12HR 06/24/19 11:00 06/30/19 09:36 5,000 UNIT Heparin Sodium/ Dextrose 500 ml @ 19.3 mls/hr CONT PRN 06/23/19 08:30 06/23/19 14:53 DC Hydromorphone HCl (Dilaudid) 0.5 mg PRN Q10MIN PRN 06/26/19 07:00 06/27/19 06:59 DC Info (Anti-Coagulation Monitoring By Pharmacy) 1 each PRN DAILY PRN 06/23/19 14:30 06/30/19 10:22 DC 06/30/19 10:17 1 EACH Info (PHARMACY MONITORING -- do not chart) 1 each PRN DAILY PRN 06/29/19 16:00 Cancel Insulin Human Lispro (HumaLOG) 0-6 UNITS BG 400-49... TIDWMEALS 06/23/19 08:00 06/30/19 09:36 1 UNITS Ketorolac Tromethamine (Toradol 15mg Vial) 15 mg PRN Q6HRS PRN 06/24/19 10:30 06/29/19 10:29 DC 06/28/19 17:19 15 MG Lidocaine HCl (Xylocaine-Mpf 1% 2ml Vial) 2 ml PRN 1X PRN 06/26/19 07:00 06/27/19 06:59 DC Metoprolol Tartrate (Lopressor Vial) 2.5 mg Q6HRS 06/25/19 18:00 06/28/19 11:19 DC 06/27/19 17:59 2.5 MG Micafungin Sodium 100 mg/Dextrose 100 ml @ 100 mls/hr Q24H 06/25/19 09:00 06/30/19 09:36 100 MLS/HR Morphine Sulfate (Morphine Sulfate) 1 mg PRN Q10MIN PRN 06/26/19 07:00 06/27/19 06:59 DC Ondansetron HCl (Zofran) 4 mg PRN Q6HRS PRN 06/26/19 07:00 06/27/19 06:59 DC Pantoprazole Sodium (Protonix) 40 mg DAILYAC 06/23/19 07:30 06/30/19 09:36 40 MG Piperacillin Sod/ Tazobactam Sod (Zosyn Per Pharmacy) 1 each PRN DAILY PRN 06/22/19 17:30 Piperacillin Sod/ Tazobactam Sod 2.25 gm/Sodium Chloride 50 ml @ 100 mls/hr Q8HRS 06/22/19 21:00 06/30/19 05:47 100 MLS/HR Quetiapine Fumarate (SEROquel) 12.5 mg PRN Q8HRS PRN 06/25/19 19:45 06/28/19 20:07 12.5 MG Ringer's Solution 1,000 ml @ 30 mls/hr Q24H 06/26/19 07:00 06/26/19 18:59 DC Sodium Chloride 1,000 ml @ 400 mls/hr Q2H30M PRN 06/29/19 12:00 06/29/19 23:59 DC Tramadol HCl (Ultram) 25 mg PRN Q6HRS PRN 06/24/19 10:30 06/28/19 17:19 25 MG Vancomycin HCl (Vanco Per Pharmacy) 1 each PRN DAILY PRN 06/22/19 17:30 06/30/19 10:19 1 EACH Vancomycin HCl (Vancomycin Random Level) 1 each 1X ONCE 06/24/19 06:00 06/24/19 06:01 DC 06/24/19 06:37 1 EACH Vancomycin HCl 500 mg/Sodium Chloride 100 ml @ 100 mls/hr QMWF 06/24/19 16:00 06/29/19 21:45 100 MLS/HR Vancomycin HCl 2 gm/Sodium Chloride 500 ml @ 250 mls/hr 1X ONCE 06/22/19 11:30 06/22/19 13:29 DC 06/22/19 12:32 250 MLS/HR Vitamin A/Vitamin D (Vitamin A & D Ointment) 1 héctor PRN BID PRN 06/26/19 06:00 06/29/19 12:42 1 HÉCTOR Vitamin B Complex/ Vitamin C (Rosalie-Judah) 1 tab DAILY 06/23/19 09:00 06/30/19 09:36 1 TAB Lab Laboratory Tests Test 06/29/19 12:20 06/29/19 17:26 06/29/19 18:11 06/30/19 00:07 Glucose (Fingerstick) 208 mg/dL (70-99) 129 mg/dL (70-99) 101 mg/dL (70-99) 182 mg/dL (70-99) Results All relevant outside records, renal labs, imaging studies, telemetry/EKG's were reviewed. BLANCA SANTA MD Jun 30, 2019 11:16
[2019-06-30 15:00] VITALS: BP 108/57
[2019-06-30] MEDS: traMADol 50 MG TABLET PO PRN (16:02)
[2019-06-30 19:25] VITALS: BP 117/58
[2019-06-30] MEDS: ATORVASTATIN CALCIUM 10 MG TABLET. PEG SCH (21:11)
[2019-06-30 22:40] VITALS: BP 127/62
[2019-07-01 03:00] VITALS: BP 129/66
[2019-07-01 05:09] LABS: BASO # 0.1 x10^3/uL (0.0-0.2); BASO % 1 % (0-3); EOS # 0.4 x10^3/uL (0.0-0.7); EOS % 5 % (0-3); HEMOGLOBIN 8.7 g/dL (13.0-17.5); LYMPH # 1.3 x10^3/uL (1.0-4.8); LYMPH % 14 % (24-48); MEAN CORPUSCULAR HEMOGLOBIN 28 pg (25-35); MEAN CORPUSCULAR HGB CONC 32 g/dL (31-37); MEAN CORPUSCULAR VOLUME 87 fL (79-100); MONO # 0.8 x10^3/uL (0.0-1.1); MONO % 9 % (0-9); NEUT # 6.3 x10^3/uL (1.8-7.7); NEUT % 71 % (31-73); PLATELET COUNT 380 x10^3/uL (140-400); WHITE BLOOD COUNT 8.9 x10^3/uL (4.0-11.0)
[2019-07-01 05:31] LABS: CALCIUM 9.4 mg/dL (8.5-10.1); CREATININE 5.2 mg/dL (0.7-1.3); POTASSIUM 3.7 mmol/L (3.5-5.1)
[2019-07-01] MEDS: PIPERACILLIN/TAZOBACTAM 2.25 GM in IV NORMAL SALINE 50ML 50 ML IV SCH ×3 (05:42→21:41)
--- NOTE | 2019-07-01 06:45 | PDOC ---
Infectious Disease Note Subjective Subjective not as responsive currently d/w rn - had a good night ROS ROS unable to obtain Vital Sign Vital Signs Vital Signs Date Time Temp Pulse Resp B/P (MAP) Pulse Ox O2 Delivery O2 Flow Rate FiO2 07/01/19 03:00 98.5 67 22 129/66 (87) 93 Room Air 98.5 Physical Exam PHYSICAL EXAM GENERAL: Opens eyes when I called out his namebut less responsive. appears comfortable. HEENT - No icterus.Dobhoff + no thrush, oral mucosa dry NECK: Supple. HEART: S1, S2. LUNGS: Clear bilaterally. ABDOMEN: Soft, nontender, obese. Bowel sounds present. yeast in groin EXTREMITIES: Right below knee amputation, scar healthy, left lower extremity amputation stump has a wound vac. Right upper extremity AV fistula site looks okay. 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 Labs Lab Laboratory Tests Test 06/30/19 10:00 06/30/19 12:25 06/30/19 17:52 07/01/19 04:15 Clostridium difficile Toxin B Gene Negative (Negative) Glucose (Fingerstick) 188 mg/dL (70-99) 180 mg/dL (70-99) White Blood Count 8.9 x10^3/uL (4.0-11.0) Red Blood Count 3.10 x10^6/uL (4.30-5.70) Hemoglobin 8.7 g/dL (13.0-17.5) Hematocrit 27.0 % (39.0-53.0) Mean Corpuscular Volume 87 fL (79-100) Mean Corpuscular Hemoglobin 28 pg (25-35) Mean Corpuscular Hemoglobin Concent 32 g/dL (31-37) Red Cell Distribution Width 19.0 % (11.5-14.5) Platelet Count 380 x10^3/uL (140-400) Neutrophils (%) (Auto) 71 % (31-73) Lymphocytes (%) (Auto) 14 % (24-48) Monocytes (%) (Auto) 9 % (0-9) Eosinophils (%) (Auto) 5 % (0-3) Basophils (%) (Auto) 1 % (0-3) Neutrophils # (Auto) 6.3 x10^3/uL (1.8-7.7) Lymphocytes # (Auto) 1.3 x10^3/uL (1.0-4.8) Monocytes # (Auto) 0.8 x10^3/uL (0.0-1.1) Eosinophils # (Auto) 0.4 x10^3/uL (0.0-0.7) Basophils # (Auto) 0.1 x10^3/uL (0.0-0.2) Sodium Level 135 mmol/L (136-145) Potassium Level 3.7 mmol/L (3.5-5.1) Chloride Level 95 mmol/L (98-107) Carbon Dioxide Level 30 mmol/L (21-32) Anion Gap 10 (6-14) Blood Urea Nitrogen 65 mg/dL (8-26) Creatinine 5.2 mg/dL (0.7-1.3) Estimated GFR (Cockcroft-Gault) 13.0 Glucose Level 206 mg/dL (70-99) Calcium Level 9.4 mg/dL (8.5-10.1) Test 07/01/19 05:40 Glucose (Fingerstick) 173 mg/dL (70-99) Micro Microbiology 06/23/19 Urine Culture - Final, Complete 06/23/19 Urine Culture Result 1 (TEREZA) - Final, Complete 06/22/19 Blood Culture - Final, Complete NO GROWTH AFTER 5 DAYS Objective Assessment 1. Urinary tract infection. No leukocyte esterase or nitrite done. Not done again on repeat UA 06/24. urine had pus like appearance when allan placement was attempted, yeast on uc likely colonization allan now in place - cults neg 2. Altered mental status, likely multifactorial, improving. CT head negative. 3. 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 End-stage renal disease, on hemodialysis. 5. Low-grade fevers. 6. leukocytosis - improved - C-diff neg 7. Anemia of chronic disease. 8. Severe protein-calorie malnutrition per speech no aspiration but slow to swallow and not able to maintain adequate po 9. Chronic atrial fibrillation. 10. High troponin with working diagnosis of non-STEMI. 11. Chronic sacral wound, superficial. 12. Yeast in groin 13. Dysphagia on ngt Plan Plan of Care - Continue Vanc,Zosyn, renal dosing /micafungin - f/u c/s and labs in am -Wound care per vascular - Continue local wound care. - Continue supportive care. - nutrition per Primary - palliative consulted - await family decisions Discussed with RN. ABIODUN BAPTISTE MD Jul 01, 2019 06:45
[2019-07-01 07:19] VITALS: BP 102/46
[2019-07-01] MEDS: INSULIN LISPRO 300 UNITS/3 ML VIAL. SQ SCH ×3 (08:00→17:00)
--- NOTE | 2019-07-01 08:33 | PDOC ---
PROGRESS NOTES Assessment Problems Medical Problems: (1) Altered mental status Status: Acute (2) Anemia in chronic illness Status: Chronic (3) CAD (coronary artery disease) Status: Chronic (4) Chronic a-fib Status: Chronic (5) DM2 (diabetes mellitus, type 2) Status: Chronic (6) ESRD (end stage renal disease) Status: Acute (7) HTN (hypertension) Status: Chronic (8) Metabolic encephalopathy Status: Acute (9) NSTEMI (non-ST elevated myocardial infarction) Status: Acute (10) Paroxysmal A-fib Status: Acute (11) Peripheral artery disease Status: Chronic (12) Severe protein-calorie malnutrition Status: Chronic (13) SSS (sick sinus syndrome) Status: Chronic (14) UTI (urinary tract infection) Status: Acute Metabolic encephalopathy with probable underlying dementia, related to urinary tract infection and leg wounds, no evidence of primary central nervous system infection, new stroke, or ongoing seizure activity. Has NSTEMI. MRI negative for acute stroke. He is declining Note that he has elevated troponin and ESR Dysphagia improved, but still has Dobbhoff Plan Palliative care meeting with daughter today Treat medical diseases Subjective no complaints Objective Vital Signs Date Time Temp Pulse Resp B/P (MAP) Pulse Ox O2 Delivery O2 Flow Rate FiO2 07/01/19 07:19 98.2 64 21 102/46 (64) 94 Room Air 98.2 Intake and Output 07/01/19 06:59 Intake Total 1924 ml Balance 1924 ml Intake Oral 0 ml IV Total 50 ml Tube Feeding 1574 ml Other 300 ml # Bowel Movements 1 PHYSICAL EXAM Alert, follows commands, speaks, oriented to person, knows location, not date PERRL. EOMI. CN: no focal findings. Muscle tone: normal. Muscle strength: 4/5 DTR: 0-1+ Plantar reflex: Bilateral below the knee amputations Gait: not examined in bed. Sensory exam: no abnormal findings. No cerebellar signs elicited. Review of Relevant I have reviewed the following items soumya (where applicable) has been applied. Labs Laboratory Tests Test 06/29/19 09:15 06/29/19 12:20 06/29/19 17:26 06/29/19 18:11 White Blood Count 11.1 x10^3/uL (4.0-11.0) Red Blood Count 3.46 x10^6/uL (4.30-5.70) Hemoglobin 9.6 g/dL (13.0-17.5) Hematocrit 30.3 % (39.0-53.0) Mean Corpuscular Volume 88 fL (79-100) Mean Corpuscular Hemoglobin 28 pg (25-35) Mean Corpuscular Hemoglobin Concent 32 g/dL (31-37) Red Cell Distribution Width 18.8 % (11.5-14.5) Platelet Count 406 x10^3/uL (140-400) Neutrophils (%) (Auto) 78 % (31-73) Lymphocytes (%) (Auto) 10 % (24-48) Monocytes (%) (Auto) 7 % (0-9) Eosinophils (%) (Auto) 5 % (0-3) Basophils (%) (Auto) 1 % (0-3) Neutrophils # (Auto) 8.7 x10^3/uL (1.8-7.7) Lymphocytes # (Auto) 1.1 x10^3/uL (1.0-4.8) Monocytes # (Auto) 0.8 x10^3/uL (0.0-1.1) Eosinophils # (Auto) 0.5 x10^3/uL (0.0-0.7) Basophils # (Auto) 0.1 x10^3/uL (0.0-0.2) Sodium Level 140 mmol/L (136-145) Potassium Level 4.0 mmol/L (3.5-5.1) Chloride Level 101 mmol/L (98-107) Carbon Dioxide Level 27 mmol/L (21-32) Anion Gap 12 (6-14) Blood Urea Nitrogen 69 mg/dL (8-26) Creatinine 6.8 mg/dL (0.7-1.3) Estimated GFR (Cockcroft-Gault) 9.6 Glucose Level 235 mg/dL (70-99) Calcium Level 9.4 mg/dL (8.5-10.1) Glucose (Fingerstick) 208 mg/dL (70-99) 129 mg/dL (70-99) 101 mg/dL (70-99) Test 06/30/19 00:07 06/30/19 10:00 06/30/19 12:25 06/30/19 17:52 Glucose (Fingerstick) 182 mg/dL (70-99) 188 mg/dL (70-99) 180 mg/dL (70-99) Clostridium difficile Toxin B Gene Negative (Negative) Test 07/01/19 04:15 07/01/19 05:40 White Blood Count 8.9 x10^3/uL (4.0-11.0) Red Blood Count 3.10 x10^6/uL (4.30-5.70) Hemoglobin 8.7 g/dL (13.0-17.5) Hematocrit 27.0 % (39.0-53.0) Mean Corpuscular Volume 87 fL (79-100) Mean Corpuscular Hemoglobin 28 pg (25-35) Mean Corpuscular Hemoglobin Concent 32 g/dL (31-37) Red Cell Distribution Width 19.0 % (11.5-14.5) Platelet Count 380 x10^3/uL (140-400) Neutrophils (%) (Auto) 71 % (31-73) Lymphocytes (%) (Auto) 14 % (24-48) Monocytes (%) (Auto) 9 % (0-9) Eosinophils (%) (Auto) 5 % (0-3) Basophils (%) (Auto) 1 % (0-3) Neutrophils # (Auto) 6.3 x10^3/uL (1.8-7.7) Lymphocytes # (Auto) 1.3 x10^3/uL (1.0-4.8) Monocytes # (Auto) 0.8 x10^3/uL (0.0-1.1) Eosinophils # (Auto) 0.4 x10^3/uL (0.0-0.7) Basophils # (Auto) 0.1 x10^3/uL (0.0-0.2) Sodium Level 135 mmol/L (136-145) Potassium Level 3.7 mmol/L (3.5-5.1) Chloride Level 95 mmol/L (98-107) Carbon Dioxide Level 30 mmol/L (21-32) Anion Gap 10 (6-14) Blood Urea Nitrogen 65 mg/dL (8-26) Creatinine 5.2 mg/dL (0.7-1.3) Estimated GFR (Cockcroft-Gault) 13.0 Glucose Level 206 mg/dL (70-99) Calcium Level 9.4 mg/dL (8.5-10.1) Glucose (Fingerstick) 173 mg/dL (70-99) Laboratory Tests Test 06/30/19 10:00 06/30/19 12:25 06/30/19 17:52 07/01/19 04:15 Clostridium difficile Toxin B Gene Negative (Negative) Glucose (Fingerstick) 188 mg/dL (70-99) 180 mg/dL (70-99) White Blood Count 8.9 x10^3/uL (4.0-11.0) Red Blood Count 3.10 x10^6/uL (4.30-5.70) Hemoglobin 8.7 g/dL (13.0-17.5) Hematocrit 27.0 % (39.0-53.0) Mean Corpuscular Volume 87 fL (79-100) Mean Corpuscular Hemoglobin 28 pg (25-35) Mean Corpuscular Hemoglobin Concent 32 g/dL (31-37) Red Cell Distribution Width 19.0 % (11.5-14.5) Platelet Count 380 x10^3/uL (140-400) Neutrophils (%) (Auto) 71 % (31-73) Lymphocytes (%) (Auto) 14 % (24-48) Monocytes (%) (Auto) 9 % (0-9) Eosinophils (%) (Auto) 5 % (0-3) Basophils (%) (Auto) 1 % (0-3) Neutrophils # (Auto) 6.3 x10^3/uL (1.8-7.7) Lymphocytes # (Auto) 1.3 x10^3/uL (1.0-4.8) Monocytes # (Auto) 0.8 x10^3/uL (0.0-1.1) Eosinophils # (Auto) 0.4 x10^3/uL (0.0-0.7) Basophils # (Auto) 0.1 x10^3/uL (0.0-0.2) Sodium Level 135 mmol/L (136-145) Potassium Level 3.7 mmol/L (3.5-5.1) Chloride Level 95 mmol/L (98-107) Carbon Dioxide Level 30 mmol/L (21-32) Anion Gap 10 (6-14) Blood Urea Nitrogen 65 mg/dL (8-26) Creatinine 5.2 mg/dL (0.7-1.3) Estimated GFR (Cockcroft-Gault) 13.0 Glucose Level 206 mg/dL (70-99) Calcium Level 9.4 mg/dL (8.5-10.1) Test 07/01/19 05:40 Glucose (Fingerstick) 173 mg/dL (70-99) Microbiology 06/23/19 Urine Culture - Final, Complete 06/23/19 Urine Culture Result 1 (TEREZA) - Final, Complete 06/22/19 Blood Culture - Final, Complete NO GROWTH AFTER 5 DAYS Medications Current Medications Vancomycin HCl 250 ml @ 250 mls/hr 1X ONCE IV ; Start 06/22/19 at 10:45; Stop 06/22/19 at 11:44; Status UNV Piperacillin Sod/ Tazobactam Sod 2.25 gm/Sodium Chloride 50 ml @ 100 mls/hr 1X ONCE IV Last administered on 06/22/19at 11:55; Start 06/22/19 at 10:45; Stop 06/22/19 at 11:14; Status DC Sodium Chloride 1,000 ml @ 100 mls/hr Q10H IV Last administered on 06/22/19at 11:55; Start 06/22/19 at 10:38; Stop 06/22/19 at 20:37; Status DC Vancomycin HCl 2 gm/Sodium Chloride 500 ml @ 250 mls/hr 1X ONCE IV Last administered on 06/22/19at 12:32; Start 06/22/19 at 11:30; Stop 06/22/19 at 13:29; Status DC Info (PHARMACY MONITORING -- do not chart) 1 each PRN DAILY PRN MC SEE COMMENTS; Start 06/22/19 at 16:30; Stop 06/24/19 at 11:38; Status DC Info (PHARMACY MONITORING -- do not chart) 1 each PRN DAILY PRN MC SEE COMMENTS; Start 06/22/19 at 16:30; Status UNV Sodium Chloride 1,000 ml @ 40 mls/hr Q24H IV Last administered on 06/24/19at 18 :31; Start 06/22/19 at 17:30; Stop 06/25/19 at 19:44; Status DC Vancomycin HCl (Vanco Per Pharmacy) 1 each PRN DAILY PRN MC SEE COMMENTS Last administered on 06/30/19at 10:19; Start 06/22/19 at 17:30 Piperacillin Sod/ Tazobactam Sod (Zosyn Per Pharmacy) 1 each PRN DAILY PRN MC SEE COMMENTS; Start 06/22/19 at 17:30 Acetaminophen (Tylenol) 650 mg PRN Q6HRS PRN PO MILD PAIN / TEMP; Start 06/22/19 at 17:30; Stop 06/25/19 at 18:15; Status DC Ondansetron HCl (Zofran) 4 mg PRN Q6HRS PRN IV NAUSEA/VOMITING; Start 06/22/19 at 17:30 Clopidogrel Bisulfate (Plavix) 75 mg DAILYWBKFT PO Last administered on 06/30/19at 09:36; Start 06/23/19 at 08:00 Vitamin B Complex/ Vitamin C (Rosalie-Judah) 1 tab DAILY PO Last administered on 06/30/19at 09:36; Start 06/23/19 at 09:00 Allopurinol (Zyloprim) 100 mg DAILY PO ; Start 06/23/19 at 09:00; Stop 06/25/19 at 18:17; Status DC Atorvastatin Calcium (Lipitor) 40 mg QHS PO Last administered on 06/22/19at 21:37; Start 06/22/19 at 21:00; Stop 06/25/19 at 12:19; Status DC Pantoprazole Sodium (Protonix) 40 mg DAILYAC PO Last administered on 06/30/19at 09:36; Start 06/23/19 at 07:30 Cyanocobalamin (Vitamin B-12) 1,000 mcg DAILY PO Last administered on 06/30/19at 09:36; Start 06/23/19 at 09:00 Piperacillin Sod/ Tazobactam Sod 2.25 gm/Sodium Chloride 50 ml @ 100 mls/hr Q8HRS IV Last administered on 07/01/19at 05:42; Start 06/22/19 at 21:00 Heparin Sodium (Porcine) (Heparin Sodium) 5,000 unit BID SQ Last administered on 06/22/19at 21:37; Start 06/22/19 at 21:00; Stop 06/23/19 at 08:23; Status DC Insulin Human Lispro (HumaLOG) 0-6 UNITS BG 400-49... TIDWMEALS SQ Last administered on 06/30/19at 09:36; Start 06/23/19 at 08:00 Vancomycin HCl (Vancomycin Random Level) 1 each 1X ONCE MC Last administered on 06/24/19at 06:37; Start 06/24/19 at 06:00; Stop 06/24/19 at 06:01; Status DC Heparin Sodium/ Dextrose 500 ml @ 19.3 mls/hr CONT PRN IV SEE I/O RECORD; Start 06/23/19 at 08:30; Stop 06/23/19 at 14:53; Status DC Heparin Sodium (Porcine) (Heparin Sodium) 2,000 unit PRN Q6HRS PRN IV FOR UFH LEVEL LESS THAN 0.2; Start 06/23/19 at 08:30; Stop 06/23/19 at 14:53; Status DC Aspirin (Ecotrin) 325 mg 1X ONCE PO ; Start 06/23/19 at 10:30; Stop 06/23/19 at 10:31; Status DC Aspirin (Ecotrin) 81 mg DAILYWBKFT PO ; Start 06/24/19 at 08:00; Stop 06/25/19 at 18:16; Status DC Ondansetron HCl (Zofran) 4 mg PRN Q6HRS PRN IV NAUSEA/VOMITING; Start 06/24/19 at 07:00; Stop 06/25/19 at 06:59; Status DC Morphine Sulfate (Morphine Sulfate) 1 mg PRN Q10MIN PRN IV SEVERE PAIN 7-10; Start 06/24/19 at 07:00; Stop 06/24/19 at 10:06; Status DC Ringer's Solution 1,000 ml @ 30 mls/hr Q24H IV ; Start 06/24/19 at 07:00; Stop 06/24/19 at 18:59; Status DC Lidocaine HCl (Xylocaine-Mpf 1% 2ml Vial) 2 ml PRN 1X PRN ID PRIOR TO IV START; Start 06/24/19 at 07:00; Stop 06/25/19 at 06:59; Status DC Hydromorphone HCl (Dilaudid) 0.5 mg PRN Q10MIN PRN IV SEV PAIN, Second choice; Start 06/24/19 at 07:00; Stop 06/24/19 at 10:06; Status DC Info (Anti-Coagulation Monitoring By Pharmacy) 1 each PRN DAILY PRN MC SEE COMMENTS Last administered on 06/30/19at 10:17; Start 06/23/19 at 14:30; Stop 06/30/19 at 10:22; Status DC Enoxaparin Sodium (Lovenox Per Pharmacy Treatment Dosing) 1 each 1X PRN MC SEE COMMENTS; Start 06/23/19 at 14:45; Stop 06/23/19 at 21:00; Status DC Enoxaparin Sodium (Lovenox 80mg Syringe) 80 mg 1X ONCE SQ Last administered on 06/23/19at 15:16; Start 06/23/19 at 15:30; Stop 06/23/19 at 15:31; Status DC Heparin Sodium (Porcine) (Heparin Sodium) 5,000 unit Q12HR SQ Last administered on 06/30/19at 21:11; Start 06/24/19 at 11:00 Acetaminophen (Tylenol Supp) 650 mg PRN Q6HRS PRN OK MILD PAIN / TEMP Last administered on 06/24/19at 23:03; Start 06/24/19 at 10:30; Stop 06/28/19 at 11:19; Status DC Tramadol HCl (Ultram) 25 mg PRN Q6HRS PRN PO PAIN MODERATE PAIN Last administered on 06/30/19at 16:04; Start 06/24/19 at 10:30 Ketorolac Tromethamine (Toradol 15mg Vial) 15 mg PRN Q6HRS PRN IV PAIN Last administered on 06/28/19at 17:19; Start 06/24/19 at 10:30; Stop 06/29/19 at 10:29; Status DC Sodium Chloride 1,000 ml @ 1,000 mls/hr Q1H PRN IV hypotension; Start 06/24/19 at 11:27; Stop 06/24/19 at 17:26; Status DC Sodium Chloride 1,000 ml @ 400 mls/hr Q2H30M PRN IV PATENCY; Start 06/24/19 at 11:27; Stop 06/24/19 at 23:26; Status DC Info (PHARMACY MONITORING -- do not chart) 1 each PRN DAILY PRN MC SEE COMMENTS; Start 06/24/19 at 11:30 Info (PHARMACY MONITORING -- do not chart) 1 each PRN DAILY PRN MC SEE COM MENTS; Start 06/24/19 at 11:30; Status UNV Vancomycin HCl 500 mg/Sodium Chloride 100 ml @ 100 mls/hr QMWF IV Last administered on 06/29/19at 21:45; Start 06/24/19 at 16:00 Dextrose (Dextrose 50%-Water Syringe) 12.5 gm PRN Q15MIN PRN IV SEE COMMENTS Last administered on 06/25/19at 01:41; Start 06/25/19 at 01:30 Dextrose 250 ml PRN Q15MIN PRN IV SEE COMMENTS; Start 06/25/19 at 01:30 Micafungin Sodium 100 mg/Dextrose 100 ml @ 100 mls/hr Q24H IV Last administered on 06/30/19at 09:36; Start 06/25/19 at 09:00 Metoprolol Tartrate (Lopressor Vial) 2.5 mg Q6HRS IVP Last administered on 06/27/19at 17:59; Start 06/25/19 at 18:00; Stop 06/28/19 at 11:19; Status DC Atorvastatin Calcium (Lipitor) 10 mg QHS PEG Last administered on 06/30/19at 21:11; Start 06/25/19 at 21:00 Ondansetron HCl (Zofran) 4 mg PRN Q6HRS PRN IV NAUSEA/VOMITING; Start 06/26/19 at 07:00; Stop 06/27/19 at 06:59; Status DC Morphine Sulfate (Morphine Sulfate) 1 mg PRN Q10MIN PRN IV SEVERE PAIN 7-10; Start 06/26/19 at 07:00; Stop 06/27/19 at 06:59; Status DC Ringer's Solution 1,000 ml @ 30 mls/hr Q24H IV ; Start 06/26/19 at 07:00; Stop 06/26/19 at 18:59; Status DC Lidocaine HCl (Xylocaine-Mpf 1% 2ml Vial) 2 ml PRN 1X PRN ID PRIOR TO IV START; Start 06/26/19 at 07:00; Stop 06/27/19 at 06:59; Status DC Hydromorphone HCl (Dilaudid) 0.5 mg PRN Q10MIN PRN IV SEV PAIN, Second choice; Start 06/26/19 at 07:00; Stop 06/27/19 at 06:59; Status DC Acetaminophen (Tylenol) 650 mg PRN Q6HRS PRN PEG MILD PAIN / TEMP Last administered on 06/29/19at 08:16; Start 06/25/19 at 18:15 Aspirin (Children'S Aspirin) 81 mg DAILYWBKFT PEG Last administered on 06/30/19at 09:36; Start 06/26/19 at 08:00 Allopurinol (Zyloprim) 100 mg DAILY PEG Last administered on 06/30/19at 09:36; Start 06/25/19 at 18:17 Quetiapine Fumarate (SEROquel) 12.5 mg PRN Q8HRS PRN PO PSYCHOTIC BEHAVIOR Last administered on 06/28/19at 20:07; Start 06/25/19 at 19:45 Vitamin A/Vitamin D (Vitamin A & D Ointment) 1 héctor PRN BID PRN TP SKIN PROTECTION Last administered on 06/29/19at 12:42; Start 06/26/19 at 06:00 Sodium Chloride 1,000 ml @ 1,000 mls/hr Q1H PRN IV hypotension; Start 06/26/19 at 12:41; Stop 06/26/19 at 18:40; Status DC Info (PHARMACY MONITORING -- do not chart) 1 each PRN DAILY PRN MC SEE COMMENTS; Start 06/26/19 at 12:45; Status UNV Info (PHARMACY MONITORING -- do not chart) 1 each PRN DAILY PRN MC SEE COMMENTS; Start 06/26/19 at 12:45; Status Cancel Sodium Chloride 1,000 ml @ 1,000 mls/hr Q1H PRN IV hypotension; Start 06/29/19 at 12:00; Stop 06/29/19 at 17:59; Status DC Sodium Chloride 1,000 ml @ 400 mls/hr Q2H30M PRN IV PATENCY; Start 06/29/19 at 12:00; Stop 06/29/19 at 23:59; Status DC Info (PHARMACY MONITORING -- do not chart) 1 each PRN DAILY PRN MC SEE COMMENTS; Start 06/29/19 at 16:00; Status UNV Info (PHARMACY MONITORING -- do not chart) 1 each PRN DAILY PRN MC SEE COMMENTS; Start 06/29/19 at 16:00; Status Cancel Active Scripts Active [place] 5-325 Tablet (Acetaminophen/Hydrocodone Bitart) 1 Each Tablet 0.5 Tab PO Q4HRS Zyvox (Linezolid) 600 Mg Tablet 600 Mg PO BID 4 Days Amox Tr-K Clv 500-125 Mg Tab (Amoxicillin/Potassium Clav) 1 Each Tablet 1 Tab PO DAILY 4 Days Tramadol Hcl 50 Mg Tablet 50 Mg PO PRN Q6HRS PRN Ondansetron Odt (Ondansetron) 4 Mg Tab.rapdis 4 Mg PO Q6HRS PRN Humalog (Insulin Lispro) 100 Unit/1 Ml Insuln.pen 0 Units SQ TIDWMEALS 30 Days BG 150-199= 1 units 200-299= 2 units 300-399= 4 units 400-499= 6 units ac tid sliding scale Reported Omeprazole 20 Mg Tablet.dr 1 Tab PO DAILY Vitamin D3 (Cholecalciferol (Vitamin D3)) 1,000 Unit Tablet 1 Tab PO DAILY Vitamin B-12 (Cyanocobalamin (Vitamin B-12)) 1,000 Mcg Tablet 1 Tab PO DAILY Senna (Sennosides) 8.6 Mg Tablet 8.6 Mg PO PRN DAILY PRN 2 tabs Renvela (Sevelamer Carbonate) 800 Mg Tablet 800 Mg PO TIDWMEALS Renal Caps Softgel (Folic Acid/Vitamin B Comp W-C) 1 Mg Capsule 1 Mg PO DAILY Reglan (Metoclopramide Hcl) 10 Mg Tablet 5 Mg PO TID Probiotic (Lactobacillus Acidophilus) 1 Each Capsule 1 Each PO BID Milk Of Magnesia (Magnesium Hydroxide) 400 Mg/5 Ml Oral.susp 400 Mg PO PRN DAILY PRN Lipitor (Atorvastatin Calcium) 40 Mg Tablet 1 Tab PO QHS Humalog (Insulin Lispro) 100 Unit/1 Ml Insuln.pen 100 Unit SQ TIDBFRMEAL 150-199=1 unit 200-299=2 units 300-399=4 units 100-499=6 units Clopidogrel (Clopidogrel Bisulfate) 75 Mg Tablet 1 Tab PO DAILY Duoneb 0.5-3(2.5) Mg/3 Ml (Albuterol/Ipratropium) 3 Ml Ampul.neb 3 Ml NEB PRN Q4HRS PRN Lac-Hydrin Five (Ammonium Lactate) 226 Gm Lotion 226 Gm TP BID Allopurinol 100 Mg Tablet 1 Tab PO DAILY Tylenol (Acetaminophen) 325 Mg Tablet 1 Tab PO PRN Q4HRS Aspirin 81 Mg Tab.chew 81 Mg PO DAILY Vitals/I & O Vital Sign - Last 24 Hours 06/30/19 06/30/19 06/30/19 06/30/19 11:00 15:00 16:04 17:53 Temp 97.7 98.2 97.7 98.2 Pulse 66 69 Resp 16 14 B/P (MAP) 95/48 (64) 108/57 (74) Pulse Ox 100 98 O2 Delivery Room Air Room Air Room Air Room Air 06/30/19 06/30/19 06/30/19 07/01/19 19:25 20:00 22:40 03:00 Temp 98.2 97.8 98.5 98.2 97.8 98.5 Pulse 79 75 67 Resp 20 20 22 B/P (MAP) 117/58 (77) 127/62 (83) 129/66 (87) Pulse Ox 96 98 93 O2 Delivery Room Air Room Air Room Air Room Air 07/01/19 07:19 Temp 98.2 98.2 Pulse 64 Resp 21 B/P (MAP) 102/46 (64) Pulse Ox 94 O2 Delivery Room Air Intake and Output 06/30/19 06/30/19 07/01/19 14:59 22:59 06:59 Intake Total 200 ml 1014 ml 710 ml Balance 200 ml 1014 ml 710 ml BAN TORRES MD Jul 01, 2019 08:33
[2019-07-01] MEDS: CLOPIDOGREL BISULFATE 75 MG TABLET PO SCH (08:41)
[2019-07-01] MEDS: ASPIRIN CHEWABLE 81 MG TABLET. PEG SCH (08:41)
[2019-07-01] MEDS: ALLOPURINOL 100 MG TABLET. PEG SCH (08:41)
[2019-07-01] MEDS: PANTOPRAZOLE 40 MG TABLET.DR. PO SCH (08:41)
[2019-07-01] MEDS: FOLIC/VIT B COMP W-C (RENAL) TABLET. PO SCH (08:41)
[2019-07-01] MEDS: CYANOCOBALAMIN (VITAMIN B-12) 1,000 MCG TABLET. PO SCH (08:41)
[2019-07-01] MEDS: VITS A & D/LANOLIN TOPICAL OINTMENT 42GM TUBE. TP PRN (08:42)
[2019-07-01] MEDS: HEPARIN for SUB-Q USE 5,000 UNIT/ML VIAL. SQ SCH ×2 (08:57→21:48)
[2019-07-01 10:00] VITALS: BP 120/42
[2019-07-01] MEDS: MICAFUNGIN 100 MG in IV DEXTROSE 5% 100ML 100 ML IV SCH (10:07)
--- NOTE | 2019-07-01 10:58 | PDOC ---
PROGRESS NOTES Subjective Subjective wound vac applied to left BKA stump. sleeping. lab reviewed. Objective Objective Vital Signs Date Time Temp Pulse Resp B/P (MAP) Pulse Ox O2 Delivery O2 Flow Rate FiO2 07/01/19 10:00 98.3 78 18 120/42 (68) 95 Room Air 98.3 Intake and Output 07/01/19 07:00 Intake Total 1924 ml Balance 1924 ml Intake Oral 0 ml IV Total 50 ml Tube Feeding 1574 ml Other 300 ml # Bowel Movements 1 Physical Exam Abdomen: Soft Heart: Normal S1, Normal S2 Extremities: Other (bilateral BKA with wound vac left BKA stump) General: Alert HEENT: Atraumatic Lungs: Clear to auscultation Neuro: Other (sleeping) Psych/Mental Status: Other (sleeping) Skin: No rashes Assessment Assessment Problemsmetabolic encephalopathy. better 2. Pyuria, consistent with urinary tract infection. pus in urine. urine culture grew 10-25K yeast 3. Bilateral below-knee amputation. 4. left below-knee amputation stump wound infection 5. Diabetes mellitus type 2. 6. Peripheral arterial disease. 7. End-stage renal disease, on hemodialysis. m-w-f 8. paroxysmal atrial fibrillation. in nsr. not a coumadin candidate. recent hx of retroperitoneal bleed on anticoagulants and fall risk. 9. Severe protein-calorie malnutrition. 10. Anemia of chronic disease. NSTEMI oropharyngeal dysphagia on dobhoff tube feeding diarrhea. stool neg for c. diff Medical Problems: (1) Altered mental status Status: Acute (2) Anemia in chronic illness Status: Chronic (3) CAD (coronary artery disease) Status: Chronic (4) Chronic a-fib Status: Chronic (5) DM2 (diabetes mellitus, type 2) Status: Chronic (6) ESRD (end stage renal disease) Status: Acute (7) HTN (hypertension) Status: Chronic (8) Metabolic encephalopathy Status: Acute (9) NSTEMI (non-ST elevated myocardial infarction) Status: Acute (10) Paroxysmal A-fib Status: Acute (11) Peripheral artery disease Status: Chronic (12) Severe protein-calorie malnutrition Status: Chronic (13) SSS (sick sinus syndrome) Status: Chronic (14) UTI (urinary tract infection) Status: Acute Plan Plan of Care continue wound vac continue iv vancomycin and zosyn and micafungin wound care continue dobhoff tube feeding hemodialysis today Comment Review of Relevant I have reviewed the following items soumya (where applicable) has been applied. Labs Laboratory Tests Test 06/29/19 12:20 06/29/19 17:26 06/29/19 18:11 06/30/19 00:07 Glucose (Fingerstick) 208 mg/dL (70-99) 129 mg/dL (70-99) 101 mg/dL (70-99) 182 mg/dL (70-99) Test 06/30/19 10:00 06/30/19 12:25 06/30/19 17:52 07/01/19 04:15 Clostridium difficile Toxin B Gene Negative (Negative) Glucose (Fingerstick) 188 mg/dL (70-99) 180 mg/dL (70-99) White Blood Count 8.9 x10^3/uL (4.0-11.0) Red Blood Count 3.10 x10^6/uL (4.30-5.70) Hemoglobin 8.7 g/dL (13.0-17.5) Hematocrit 27.0 % (39.0-53.0) Mean Corpuscular Volume 87 fL (79-100) Mean Corpuscular Hemoglobin 28 pg (25-35) Mean Corpuscular Hemoglobin Concent 32 g/dL (31-37) Red Cell Distribution Width 19.0 % (11.5-14.5) Platelet Count 380 x10^3/uL (140-400) Neutrophils (%) (Auto) 71 % (31-73) Lymphocytes (%) (Auto) 14 % (24-48) Monocytes (%) (Auto) 9 % (0-9) Eosinophils (%) (Auto) 5 % (0-3) Basophils (%) (Auto) 1 % (0-3) Neutrophils # (Auto) 6.3 x10^3/uL (1.8-7.7) Lymphocytes # (Auto) 1.3 x10^3/uL (1.0-4.8) Monocytes # (Auto) 0.8 x10^3/uL (0.0-1.1) Eosinophils # (Auto) 0.4 x10^3/uL (0.0-0.7) Basophils # (Auto) 0.1 x10^3/uL (0.0-0.2) Sodium Level 135 mmol/L (136-145) Potassium Level 3.7 mmol/L (3.5-5.1) Chloride Level 95 mmol/L (98-107) Carbon Dioxide Level 30 mmol/L (21-32) Anion Gap 10 (6-14) Blood Urea Nitrogen 65 mg/dL (8-26) Creatinine 5.2 mg/dL (0.7-1.3) Estimated GFR (Cockcroft-Gault) 13.0 Glucose Level 206 mg/dL (70-99) Calcium Level 9.4 mg/dL (8.5-10.1) Test 07/01/19 05:40 Glucose (Fingerstick) 173 mg/dL (70-99) Laboratory Tests Test 06/30/19 12:25 06/30/19 17:52 07/01/19 04:15 07/01/19 05:40 Glucose (Fingerstick) 188 mg/dL (70-99) 180 mg/dL (70-99) 173 mg/dL (70-99) White Blood Count 8.9 x10^3/uL (4.0-11.0) Red Blood Count 3.10 x10^6/uL (4.30-5.70) Hemoglobin 8.7 g/dL (13.0-17.5) Hematocrit 27.0 % (39.0-53.0) Mean Corpuscular Volume 87 fL (79-100) Mean Corpuscular Hemoglobin 28 pg (25-35) Mean Corpuscular Hemoglobin Concent 32 g/dL (31-37) Red Cell Distribution Width 19.0 % (11.5-14.5) Platelet Count 380 x10^3/uL (140-400) Neutrophils (%) (Auto) 71 % (31-73) Lymphocytes (%) (Auto) 14 % (24-48) Monocytes (%) (Auto) 9 % (0-9) Eosinophils (%) (Auto) 5 % (0-3) Basophils (%) (Auto) 1 % (0-3) Neutrophils # (Auto) 6.3 x10^3/uL (1.8-7.7) Lymphocytes # (Auto) 1.3 x10^3/uL (1.0-4.8) Monocytes # (Auto) 0.8 x10^3/uL (0.0-1.1) Eosinophils # (Auto) 0.4 x10^3/uL (0.0-0.7) Basophils # (Auto) 0.1 x10^3/uL (0.0-0.2) Sodium Level 135 mmol/L (136-145) Potassium Level 3.7 mmol/L (3.5-5.1) Chloride Level 95 mmol/L (98-107) Carbon Dioxide Level 30 mmol/L (21-32) Anion Gap 10 (6-14) Blood Urea Nitrogen 65 mg/dL (8-26) Creatinine 5.2 mg/dL (0.7-1.3) Estimated GFR (Cockcroft-Gault) 13.0 Glucose Level 206 mg/dL (70-99) Calcium Level 9.4 mg/dL (8.5-10.1) Microbiology 06/23/19 Urine Culture - Final, Complete 06/23/19 Urine Culture Result 1 (TEREZA) - Final, Complete 06/22/19 Blood Culture - Final, Complete NO GROWTH AFTER 5 DAYS Medications Current Medications Vancomycin HCl 250 ml @ 250 mls/hr 1X ONCE IV ; Start 06/22/19 at 10:45; Stop 06/22/19 at 11:44; Status UNV Piperacillin Sod/ Tazobactam Sod 2.25 gm/Sodium Chloride 50 ml @ 100 mls/hr 1X ONCE IV Last administered on 06/22/19at 11:55; Start 06/22/19 at 10:45; Stop 06/22/19 at 11:14; Status DC Sodium Chloride 1,000 ml @ 100 mls/hr Q10H IV Last administered on 06/22/19at 11:55; Start 06/22/19 at 10:38; Stop 06/22/19 at 20:37; Status DC Vancomycin HCl 2 gm/Sodium Chloride 500 ml @ 250 mls/hr 1X ONCE IV Last administered on 06/22/19at 12:32; Start 06/22/19 at 11:30; Stop 06/22/19 at 13:29; Status DC Info (PHARMACY MONITORING -- do not chart) 1 each PRN DAILY PRN MC SEE COMMENTS; Start 06/22/19 at 16:30; Stop 06/24/19 at 11:38; Status DC Info (PHARMACY MONITORING -- do not chart) 1 each PRN DAILY PRN MC SEE COMMENTS; Start 06/22/19 at 16:30; Status UNV Sodium Chloride 1,000 ml @ 40 mls/hr Q24H IV Last administered on 06/24/19at 18:31; Start 06/22/19 at 17:30; Stop 06/25/19 at 19:44; Status DC Vancomycin HCl (Vanco Per Pharmacy) 1 each PRN DAILY PRN MC SEE COMMENTS Last administered on 06/30/19at 10:19; Start 06/22/19 at 17:30 Piperacillin Sod/ Tazobactam Sod (Zosyn Per Pharmacy) 1 each PRN DAILY PRN MC SEE COMMENTS; Start 06/22/19 at 17:30 Acetaminophen (Tylenol) 650 mg PRN Q6HRS PRN PO MILD PAIN / TEMP; Start 06/22/19 at 17:30; Stop 06/25/19 at 18:15; Status DC Ondansetron HCl (Zofran) 4 mg PRN Q6HRS PRN IV NAUSEA/VOMITING; Start 06/22/19 at 17:30 Clopidogrel Bisulfate (Plavix) 75 mg DAILYWBKFT PO Last administered on 07/01/19at 08:57; Start 06/23/19 at 08:00 Vitamin B Complex/ Vitamin C (Carlos-Moses) 1 tab DAILY PO Last administered on 07/01/19at 08:57; Start 06/23/19 at 09:00 Allopurinol (Zyloprim) 100 mg DAILY PO ; Start 06/23/19 at 09:00; Stop 06/25/19 at 18:17; Status DC Atorvastatin Calcium (Lipitor) 40 mg QHS PO Last administered on 06/22/19at 21:37; Start 06/22/19 at 21:00; Stop 06/25/19 at 12:19; Status DC Pantoprazole Sodium (Protonix) 40 mg DAILYAC PO Last administered on 07/01/19at 08:57; Start 06/23/19 at 07:30 Cyanocobalamin (Vitamin B-12) 1,000 mcg DAILY PO Last administered on 07/01/19at 08:57; Start 06/23/19 at 09:00 Piperacillin Sod/ Tazobactam Sod 2.25 gm/Sodium Chloride 50 ml @ 100 mls/hr Q8HRS IV Last administered on 07/01/19at 05:42; Start 06/22/19 at 21:00 Heparin Sodium (Porcine) (Heparin Sodium) 5,000 unit BID SQ Last administered on 06/22/19at 21:37; Start 06/22/19 at 21:00; Stop 06/23/19 at 08:23; Status DC Insulin Human Lispro (HumaLOG) 0-6 UNITS BG 400-49... TIDWMEALS SQ Last administered on 06/30/19at 09:36; Start 06/23/19 at 08:00 Vancomycin HCl (Vancomycin Random Level) 1 each 1X ONCE MC Last administered on 06/24/19at 06:37; Start 06/24/19 at 06:00; Stop 06/24/19 at 06:01; Status DC Heparin Sodium/ Dextrose 500 ml @ 19.3 mls/hr CONT PRN IV SEE I/O RECORD; Start 06/23/19 at 08:30; Stop 06/23/19 at 14:53; Status DC Heparin Sodium (Porcine) (Heparin Sodium) 2,000 unit PRN Q6HRS PRN IV FOR UFH LEVEL LESS THAN 0.2; Start 06/23/19 at 08:30; Stop 06/23/19 at 14:53; Status DC Aspirin (Ecotrin) 325 mg 1X ONCE PO ; Start 06/23/19 at 10:30; Stop 06/23/19 at 10:31; Status DC Aspirin (Ecotrin) 81 mg DAILYWBKFT PO ; Start 06/24/19 at 08:00; Stop 06/25/19 at 18:16; Status DC Ondansetron HCl (Zofran) 4 mg PRN Q6HRS PRN IV NAUSEA/VOMITING; Start 06/24/19 at 07:00; Stop 06/25/19 at 06:59; Status DC Morphine Sulfate (Morphine Sulfate) 1 mg PRN Q10MIN PRN IV SEVERE PAIN 7-10; Start 06/24/19 at 07:00; Stop 06/24/19 at 10:06; Status DC Ringer's Solution 1,000 ml @ 30 mls/hr Q24H IV ; Start 06/24/19 at 07:00; Stop 06/24/19 at 18:59; Status DC Lidocaine HCl (Xylocaine-Mpf 1% 2ml Vial) 2 ml PRN 1X PRN ID PRIOR TO IV START; Start 06/24/19 at 07:00; Stop 06/25/19 at 06:59; Status DC Hydromorphone HCl (Dilaudid) 0.5 mg PRN Q10MIN PRN IV SEV PAIN, Second choice; Start 06/24/19 at 07:00; Stop 06/24/19 at 10:06; Status DC Info (Anti-Coagulation Monitoring By Pharmacy) 1 each PRN DAILY PRN MC SEE COMMENTS Last administered on 06/30/19at 10:17; Start 06/23/19 at 14:30; Stop 06/30/19 at 10:22; Status DC Enoxaparin Sodium (Lovenox Per Pharmacy Treatment Dosing) 1 each 1X PRN MC SEE COMMENTS; Start 06/23/19 at 14:45; Stop 06/23/19 at 21:00; Status DC Enoxaparin Sodium (Lovenox 80mg Syringe) 80 mg 1X ONCE SQ Last administered on 06/23/19at 15:16; Start 06/23/19 at 15:30; Stop 06/23/19 at 15:31; Status DC Heparin Sodium (Porcine) (Heparin Sodium) 5,000 unit Q12HR SQ Last administered on 07/01/19at 08:57; Start 06/24/19 at 11:00 Acetaminophen (Tylenol Supp) 650 mg PRN Q6HRS PRN [place] MILD PAIN / TEMP Last administered on 06/24/19at 23:03; Start 06/24/19 at 10:30; Stop 06/28/19 at 11:19; Status DC Tramadol HCl (Ultram) 25 mg PRN Q6HRS PRN PO PAIN MODERATE PAIN Last administered on 06/30/19at 16:04; Start 06/24/19 at 10:30 Ketorolac Tromethamine (Toradol 15mg Vial) 15 mg PRN Q6HRS PRN IV PAIN Last administered on 06/28/19at 17:19; Start 06/24/19 at 10:30; Stop 06/29/19 at 10:29; Status DC Sodium Chloride 1,000 ml @ 1,000 mls/hr Q1H PRN IV hypotension; Start 06/24/19 at 11:27; Stop 06/24/19 at 17:26; Status DC Sodium Chloride 1,000 ml @ 400 mls/hr Q2H30M PRN IV PATENCY; Start 06/24/19 at 11:27; Stop 06/24/19 at 23:26; Status DC Info (PHARMACY MONITORING -- do not chart) 1 each PRN DAILY PRN MC SEE COMMENTS; Start 06/24/19 at 11:30 Info (PHARMACY MONITORING -- do not chart) 1 each PRN DAILY PRN MC SEE COMMENTS; Start 06/24/19 at 11:30; Status UNV Vancomycin HCl 500 mg/Sodium Chloride 100 ml @ 100 mls/hr QMWF IV Last administered on 06/29/19at 21:45; Start 06/24/19 at 16:00 Dextrose (Dextrose 50%-Water Syringe) 12.5 gm PRN Q15MIN PRN IV SEE COMMENTS Last administered on 06/25/19at 01:41; Start 06/25/19 at 01:30 Dextrose 250 ml PRN Q15MIN PRN IV SEE COMMENTS; Start 06/25/19 at 01:30 Micafungin Sodium 100 mg/Dextrose 100 ml @ 100 mls/hr Q24H IV Last administered on 07/01/19at 10:07; Start 06/25/19 at 09:00 Metoprolol Tartrate (Lopressor Vial) 2.5 mg Q6HRS IVP Last administered on 06/27/19at 17:59; Start 06/25/19 at 18:00; Stop 06/28/19 at 11:19; Status DC Atorvastatin Calcium (Lipitor) 10 mg QHS PEG Last administered on 06/30/19at 21:11; Start 06/25/19 at 21:00 Ondansetron HCl (Zofran) 4 mg PRN Q6HRS PRN IV NAUSEA/VOMITING; Start 06/26/19 at 07:00; Stop 06/27/19 at 06:59; Status DC Morphine Sulfate (Morphine Sulfate) 1 mg PRN Q10MIN PRN IV SEVERE PAIN 7-10; Start 06/26/19 at 07:00; Stop 06/27/19 at 06:59; Status DC Ringer's Solution 1,000 ml @ 30 mls/hr Q24H IV ; Start 06/26/19 at 07:00; Stop 06/26/19 at 18:59; Status DC Lidocaine HCl (Xylocaine-Mpf 1% 2ml Vial) 2 ml PRN 1X PRN ID PRIOR TO IV START; Start 06/26/19 at 07:00; Stop 06/27/19 at 06:59; Status DC Hydromorphone HCl (Dilaudid) 0.5 mg PRN Q10MIN PRN IV SEV PAIN, Second choice; Start 06/26/19 at 07:00; Stop 06/27/19 at 06:59; Status DC Acetaminophen (Tylenol) 650 mg PRN Q6HRS PRN PEG MILD PAIN / TEMP Last administered on 06/29/19at 08:16; Start 06/25/19 at 18:15 Aspirin (Children'S Aspirin) 81 mg DAILYWBKFT PEG Last administered on 07/01/19at 08:57; Start 06/26/19 at 08:00 Allopurinol (Zyloprim) 100 mg DAILY PEG Last administered on 07/01/19at 08:57; Start 06/25/19 at 18:17 Quetiapine Fumarate (SEROquel) 12.5 mg PRN Q8HRS PRN PO PSYCHOTIC BEHAVIOR Last administered on 06/28/19at 20:07; Start 06/25/19 at 19:45 Vitamin A/Vitamin D (Vitamin A & D Ointment) 1 héctor PRN BID PRN TP SKIN PROTECTION Last administered on 07/01/19at 08:57; Start 06/26/19 at 06:00 Sodium Chloride 1,000 ml @ 1,000 mls/hr Q1H PRN IV hypotension; Start 06/26/19 at 12:41; Stop 06/26/19 at 18:40; Status DC Info (PHARMACY MONITORING -- do not chart) 1 each PRN DAILY PRN MC SEE COMMENTS; Start 06/26/19 at 12:45; Status UNV Info (PHARMACY MONITORING -- do not chart) 1 each PRN DAILY PRN MC SEE COMMENTS; Start 06/26/19 at 12:45; Status Cancel Sodium Chloride 1,000 ml @ 1,000 mls/hr Q1H PRN IV hypotension; Start 06/29/19 at 12:00; Stop 06/29/19 at 17:59; Status DC Sodium Chloride 1,000 ml @ 400 mls/hr Q2H30M PRN IV PATENCY; Start 06/29/19 at 12:00; Stop 06/29/19 at 23:59; Status DC Info (PHARMACY MONITORING -- do not chart) 1 each PRN DAILY PRN MC SEE COMMENTS; Start 06/29/19 at 16:00; Status UNV Info (PHARMACY MONITORING -- do not chart) 1 each PRN DAILY PRN MC SEE COMMENTS; Start 06/29/19 at 16:00; Status Cancel Active Scripts Active [place] 5-325 Tablet (Acetaminophen/Hydrocodone Bitart) 1 Each Tablet 0.5 Tab PO Q4HRS Zyvox (Linezolid) 600 Mg Tablet 600 Mg PO BID 4 Days Amox Tr-K Clv 500-125 Mg Tab (Amoxicillin/Potassium Clav) 1 Each Tablet 1 Tab PO DAILY 4 Days Tramadol Hcl 50 Mg Tablet 50 Mg PO PRN Q6HRS PRN Ondansetron Odt (Ondansetron) 4 Mg Tab.rapdis 4 Mg PO Q6HRS PRN Humalog (Insulin Lispro) 100 Unit/1 Ml Insuln.pen 0 Units SQ TIDWMEALS 30 Days BG 150-199= 1 units 200-299= 2 units 300-399= 4 units 400-499= 6 units ac tid sliding scale Reported Omeprazole 20 Mg Tablet.dr 1 Tab PO DAILY Vitamin D3 (Cholecalciferol (Vitamin D3)) 1,000 Unit Tablet 1 Tab PO DAILY Vitamin B-12 (Cyanocobalamin (Vitamin B-12)) 1,000 Mcg Tablet 1 Tab PO DAILY Senna (Sennosides) 8.6 Mg Tablet 8.6 Mg PO PRN DAILY PRN 2 tabs Renvela (Sevelamer Carbonate) 800 Mg Tablet 800 Mg PO TIDWMEALS Renal Caps Softgel (Folic Acid/Vitamin B Comp W-C) 1 Mg Capsule 1 Mg PO DAILY Reglan (Metoclopramide Hcl) 10 Mg Tablet 5 Mg PO TID Probiotic (Lactobacillus Acidophilus) 1 Each Capsule 1 Each PO BID Milk Of Magnesia (Magnesium Hydroxide) 400 Mg/5 Ml Oral.susp 400 Mg PO PRN DAILY PRN Lipitor (Atorvastatin Calcium) 40 Mg Tablet 1 Tab PO QHS Humalog (Insulin Lispro) 100 Unit/1 Ml Insuln.pen 100 Unit SQ TIDBFRMEAL 150-199=1 unit 200-299=2 units 300-399=4 units 100-499=6 units Clopidogrel (Clopidogrel Bisulfate) 75 Mg Tablet 1 Tab PO DAILY Duoneb 0.5-3(2.5) Mg/3 Ml (Albuterol/Ipratropium) 3 Ml Ampul.neb 3 Ml NEB PRN Q 4HRS PRN Lac-Hydrin Five (Ammonium Lactate) 226 Gm Lotion 226 Gm TP BID Allopurinol 100 Mg Tablet 1 Tab PO DAILY Tylenol (Acetaminophen) 325 Mg Tablet 1 Tab PO PRN Q4HRS Aspirin 81 Mg Tab.chew 81 Mg PO DAILY Vitals/I & O Vital Sign - Last 24 Hours 06/30/19 06/30/19 06/30/19 06/30/19 11:00 15:00 16:04 17:53 Temp 97.7 98.2 97.7 98.2 Pulse 66 69 Resp 16 14 B/P (MAP) 95/48 (64) 108/57 (74) Pulse Ox 100 98 O2 Delivery Room Air Room Air Room Air Room Air 06/30/19 06/30/19 06/30/19 07/01/19 19:25 20:00 22:40 03:00 Temp 98.2 97.8 98.5 98.2 97.8 98.5 Pulse 79 75 67 Resp 20 20 22 B/P (MAP) 117/58 (77) 127/62 (83) 129/66 (87) Pulse Ox 96 98 93 O2 Delivery Room Air Room Air Room Air Room Air 07/01/19 07/01/19 07/01/19 07:19 08:00 10:00 Temp 98.2 98.3 98.2 98.3 Pulse 64 78 Resp 21 18 B/P (MAP) 102/46 (64) 120/42 (68) Pulse Ox 94 95 O2 Delivery Room Air Room Air Room Air Intake and Output 06/30/19 06/30/19 07/01/19 15:00 23:00 07:00 Intake Total 200 ml 1014 ml 710 ml Balance 200 ml 1014 ml 710 ml Nutrition Consultation Dietary Evaluation: Recommendations by RD: Increase Calorie Intake, Protein supplementation Comments: Continue w/Nepro@goal rate 40 ml/hr w/150 ml water flushes q6 hrs per MD Continue w/Marcell BID and carlos-moses for wound healing Continue w/dysphagia I diet w/honey thick liquids per FISHER SPEAR, recommend Magic cup supplements TID Expected Outcomes/Goals: TF intiation/infusion to meet >75% est needs - met, new goal established New goal 06/30: TF infusion + PO intake to meet >75% est needs Malnutrition Findings: Food and Nutrition Intake (Sev: <50% est energy req 5days Weight Status: Appropriate SAM OLMOS MD Jul 01, 2019 10:58
[2019-07-01] MEDS: traMADol 50 MG TABLET PO PRN (13:29)
[2019-07-01] MEDS ORDERED: DIALYSIS PATIENT. MC PRN ×2 (14:00)
--- NOTE | 2019-07-01 14:00 | PDOC ---
SUBJECTIVE ROS No change OBJECTIVE Vital Signs Vital Signs Date Time Temp Pulse Resp B/P (MAP) Pulse Ox O2 Delivery O2 Flow Rate FiO2 07/01/19 13:30 95 Room Air 07/01/19 10:00 98.3 78 18 120/42 (68) 98.3 I & 0 Intake and Output 07/01/19 07:00 Intake Total 1924 ml Balance 1924 ml Intake Oral 0 ml IV Total 50 ml Tube Feeding 1574 ml Other 300 ml # Bowel Movements 1 PHYSICAL EXAM Physical Exam GENERAL: NAD NECK: Supple. HEART: S1, S2. LUNGS: Clear bilaterally. ABDOMEN: Soft, nontender, obese. Bowel sounds present. EXTREMITIES: Right below knee amputation, left lower extremity amputation stump has a wound with a necrotic area. Right upper extremity AV fistula site Neuro- Moves upper extremity, answers a few questions, follows a few commands. Fin[place] + DIAGNOSIS/ASSESSMENT Assessment & Plan ESRD - On HD MWF Dialysis today as ordered, Alejandro Coroner Technician Urinary tract infection Finley in place, On Abx Left below knee amputation site infected wound seen by Vascular, awaiting debridement when stable Anemia of chronic disease- Hgb dropping Aranesp per protocol Severe protein-calorie malnutrition. Chronic atrial fibrillation. COMMENT/RELEVANT DATA Meds Current Medications Medications (Trade) Dose Ordered Sig/Mitzi Start Time Stop Time Status Last Admin Dose Admin Acetaminophen (Tylenol Supp) 650 mg PRN Q6HRS PRN 06/24/19 10:30 06/28/19 11:19 DC 06/24/19 23:03 650 MG Acetaminophen (Tylenol) 650 mg PRN Q6HRS PRN 06/25/19 18:15 06/29/19 08:16 650 MG Allopurinol (Zyloprim) 100 mg DAILY 06/25/19 18:17 07/01/19 08:57 100 MG Aspirin (Children'S Aspirin) 81 mg DAILYWBKFT 06/26/19 08:00 07/01/19 08:57 81 MG Aspirin (Ecotrin) 81 mg DAILYWBKFT 06/24/19 08:00 06/25/19 18:16 DC Atorvastatin Calcium (Lipitor) 10 mg QHS 06/25/19 21:00 06/30/19 21:11 10 MG Clopidogrel Bisulfate (Plavix) 75 mg DAILYWBKFT 06/23/19 08:00 07/01/19 08:57 75 MG Cyanocobalamin (Vitamin B-12) 1,000 mcg DAILY 06/23/19 09:00 07/01/19 08:57 1,000 MCG Dextrose 250 ml PRN Q15MIN PRN 06/25/19 01:30 Dextrose (Dextrose 50%-Water Syringe) 12.5 gm PRN Q15MIN PRN 06/25/19 01:30 06/25/19 01:41 12.5 GM Enoxaparin Sodium (Lovenox 80mg Syringe) 80 mg 1X ONCE 06/23/19 15:30 06/23/19 15:31 DC 06/23/19 15:16 80 MG Enoxaparin Sodium (Lovenox Per Pharmacy Treatment Dosing) 1 each 1X PRN 06/23/19 14:45 06/23/19 21:00 DC Heparin Sodium (Porcine) (Heparin Sodium) 5,000 unit Q12HR 06/24/19 11:00 07/01/19 08:57 5,000 UNIT Heparin Sodium/ Dextrose 500 ml @ 19.3 mls/hr CONT PRN 06/23/19 08:30 06/23/19 14:53 DC Hydromorphone HCl (Dilaudid) 0.5 mg PRN Q10MIN PRN 06/26/19 07:00 06/27/19 06:59 DC Info (Anti-Coagulation Monitoring By Pharmacy) 1 each PRN DAILY PRN 06/23/19 14:30 06/30/19 10:22 DC 06/30/19 10:17 1 EACH Info (PHARMACY MONITORING -- do not chart) 1 each PRN DAILY PRN 06/29/19 16:00 Cancel Insulin Human Lispro (HumaLOG) 0-6 UNITS BG 400-49... TIDWMEALS 06/23/19 08:00 07/01/19 12:33 4 UNITS Ketorolac Tromethamine (Toradol 15mg Vial) 15 mg PRN Q6HRS PRN 06/24/19 10:30 06/29/19 10:29 DC 06/28/19 17:19 15 MG Lidocaine HCl (Xylocaine-Mpf 1% 2ml Vial) 2 ml PRN 1X PRN 06/26/19 07:00 06/27/19 06:59 DC Metoprolol Tartrate (Lopressor Vial) 2.5 mg Q6HRS 06/25/19 18:00 06/28/19 11:19 DC 06/27/19 17:59 2.5 MG Micafungin Sodium 100 mg/Dextrose 100 ml @ 100 mls/hr Q24H 06/25/19 09:00 07/01/19 10:07 100 MLS/HR Morphine Sulfate (Morphine Sulfate) 1 mg PRN Q10MIN PRN 06/26/19 07:00 06/27/19 06:59 DC Ondansetron HCl (Zofran) 4 mg PRN Q6HRS PRN 06/26/19 07:00 06/27/19 06:59 DC Pantoprazole Sodium (Protonix) 40 mg DAILYAC 06/23/19 07:30 07/01/19 08:57 40 MG Piperacillin Sod/ Tazobactam Sod (Zosyn Per Pharmacy) 1 each PRN DAILY PRN 06/22/19 17:30 Piperacillin Sod/ Tazobactam Sod 2.25 gm/Sodium Chloride 50 ml @ 100 mls/hr Q8HRS 06/22/19 21:00 07/01/19 13:30 100 MLS/HR Quetiapine Fumarate (SEROquel) 12.5 mg PRN Q8HRS PRN 06/25/19 19:45 06/28/19 20:07 12.5 MG Ringer's Solution 1,000 ml @ 30 mls/hr Q24H 06/26/19 07:00 06/26/19 18:59 DC Sodium Chloride 1,000 ml @ 400 mls/hr Q2H30M PRN 06/29/19 12:00 06/29/19 23:59 DC Tramadol HCl (Ultram) 25 mg PRN Q6HRS PRN 06/24/19 10:30 07/01/19 13:30 25 MG Vancomycin HCl (Vanco Per Pharmacy) 1 each PRN DAILY PRN 06/22/19 17:30 06/30/19 10:19 1 EACH Vancomycin HCl (Vancomycin Random Level) 1 each 1X ONCE 06/24/19 06:00 06/24/19 06:01 DC 06/24/19 06:37 1 EACH Vancomycin HCl 500 mg/Sodium Chloride 100 ml @ 100 mls/hr QMWF 06/24/19 16:00 06/29/19 21:45 100 MLS/HR Vancomycin HCl 2 gm/Sodium Chloride 500 ml @ 250 mls/hr 1X ONCE 06/22/19 11:30 06/22/19 13:29 DC 06/22/19 12:32 250 MLS/HR Vitamin A/Vitamin D (Vitamin A & D Ointment) 1 héctor PRN BID PRN 06/26/19 06:00 07/01/19 08:57 1 HÉCTOR Vitamin B Complex/ Vitamin C (Rosalie-Judah) 1 tab DAILY 06/23/19 09:00 07/01/19 08:57 1 TAB Lab Laboratory Tests Test 06/30/19 17:52 07/01/19 04:15 07/01/19 05:40 07/01/19 11:22 Glucose (Fingerstick) 180 mg/dL (70-99) 173 mg/dL (70-99) 347 mg/dL (70-99) White Blood Count 8.9 x10^3/uL (4.0-11.0) Red Blood Count 3.10 x10^6/uL (4.30-5.70) Hemoglobin 8.7 g/dL (13.0-17.5) Hematocrit 27.0 % (39.0-53.0) Mean Corpuscular Volume 87 fL (79-100) Mean Corpuscular Hemoglobin 28 pg (25-35) Mean Corpuscular Hemoglobin Concent 32 g/dL (31-37) Red Cell Distribution Width 19.0 % (11.5-14.5) Platelet Count 380 x10^3/uL (140-400) Neutrophils (%) (Auto) 71 % (31-73) Lymphocytes (%) (Auto) 14 % (24-48) Monocytes (%) (Auto) 9 % (0-9) Eosinophils (%) (Auto) 5 % (0-3) Basophils (%) (Auto) 1 % (0-3) Neutrophils # (Auto) 6.3 x10^3/uL (1.8-7.7) Lymphocytes # (Auto) 1.3 x10^3/uL (1.0-4.8) Monocytes # (Auto) 0.8 x10^3/uL (0.0-1.1) Eosinophils # (Auto) 0.4 x10^3/uL (0.0-0.7) Basophils # (Auto) 0.1 x10^3/uL (0.0-0.2) Sodium Level 135 mmol/L (136-145) Potassium Level 3.7 mmol/L (3.5-5.1) Chloride Level 95 mmol/L (98-107) Carbon Dioxide Level 30 mmol/L (21-32) Anion Gap 10 (6-14) Blood Urea Nitrogen 65 mg/dL (8-26) Creatinine 5.2 mg/dL (0.7-1.3) Estimated GFR (Cockcroft-Gault) 13.0 Glucose Level 206 mg/dL (70-99) Calcium Level 9.4 mg/dL (8.5-10.1) Results All relevant outside records, renal labs, imaging studies, telemetry/EKG's were reviewed. BLANCA SANTA MD Jul 01, 2019 14:00
[2019-07-01] MEDS: VANCOMYCIN PER PHARMACY MC PRN (15:00)
--- NOTE | 2019-07-01 15:44 | PDOC2 ---
PALLIATIVE CARE Palliative Care Note Palliative Care Patient remains alert/confused. Met with daughter Claudia and her . 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 Swallow evaluation completed. Diet ordered but likely not be able to meet nutritional needs Daughter requests to continue full aggressive care, full code and PEG tube if needed. Discussed discharge plans; [facility] vs [facility]. Daughter requests PP. Bertha DIEZ aware of above discussion. NGUYEN ZAPATA Jul 01, 2019 15:44
[2019-07-01] MEDS: VANCOMYCIN 500 MG in IV NORMAL SALINE 100ML 100 ML IV SCH (18:48)
[2019-07-01 19:00] VITALS: BP 126/59
[2019-07-01] MEDS: ACETAMINOPHEN 650 MG/20.3 ML SOLUTION. PEG PRN ×2 (21:00→21:40)
[2019-07-01] MEDS: ATORVASTATIN CALCIUM 10 MG TABLET. PEG SCH ×2 (21:00→21:40)
--- NOTE | 2019-07-01 21:09 | RAD ---
Examination: KUB History: Dobbhoff placement Comparison/Correlation: 06/25/2019 KUB x-ray exam Findings: Portable supine frontal view of the upper abdomen was obtained. Dobbhoff tube is identified terminating in the right upper quadrant. Pacemaker lead is noted. Degenerative changes of the low lumbar spine are evident. Mild gaseous distention of bowel noted. Impression: Dobbhoff tube appears to be in place terminating at the right upper quadrant. Electronically signed by: Jarred Moy MD (07/01/2019 9:06 PM) [facility]
[2019-07-01] MEDS: DARBEPOETIN ALFA 60 MCG/0.3 ML DISP.SYRIN. SQ SCH (21:41)
[2019-07-01 23:00] VITALS: BP 117/58
[2019-07-02 02:55] VITALS: BP 93/55
--- NOTE | 2019-07-02 03:13 | RAD ---
AP abdomen x-ray HISTORY: Feeding tube placement. COMPARISON: Abdomen x-ray September 30, 2019. FINDINGS: There is a feeding tube abnormally positioned which traverses the left upper quadrant at the upper stomach and then coils retrograde back up the esophagus at the lower chest. Lung bases unremarkable. Moderate gaseous distended bowel loops. Bones unremarkable. IMPRESSION: Abnormal positioning of the patient's feeding tube coiled retrograde at the lower esophagus. This should be repositioned to the stomach or small bowel prior to using. Critical results called to patient's nurse on [address] at 3:10 AM July 02, 2019. Electronically signed by: Walter Crawford MD (07/02/2019 3:10 AM) [facility]
--- NOTE | 2019-07-02 03:54 | RAD ---
AP abdomen x-ray HISTORY: Dobbhoff feeding tube placement. COMPARISON: Abdomen x-ray July 02, 2019. FINDINGS: The feeding tube is abnormally positioned within the chest below the left mainstem bronchus likely within the esophagus with the tip coiled retrograde extending superiorly outside the [id number]. Lung bases are unremarkable. Mild gaseous distended bowel loops upper abdomen. IMPRESSION: Abnormal positioning of the feeding tube within the upper thoracic esophagus extending outside the [id number] to the upper chest. This tube should be removed, and no tube feeding should occur until placed within the stomach or small bowel. Critical results called to [facility] nurse [place] at 3:50 AM July 02, 2019. Electronically signed by: Walter Crawford MD (07/02/2019 3:51 AM) [id number]
[2019-07-02] MEDS: PIPERACILLIN/TAZOBACTAM 2.25 GM in IV NORMAL SALINE 50ML 50 ML IV SCH ×3 (06:09→20:45)
[2019-07-02 07:00] VITALS: BP 131/69
--- NOTE | 2019-07-02 07:39 | PDOC ---
Infectious Disease Note Subjective Subjective Awakened but non verbal d/w rn - had a good night per nursing although Dobhoff out Vital Sign Vital Signs Vital Signs Date Time Temp Pulse Resp B/P (MAP) Pulse Ox O2 Delivery O2 Flow Rate FiO2 07/02/19 02:55 97.3 77 22 93/55 (68) 96 Room Air 97.3 Physical Exam PHYSICAL EXAM GENERAL: Opens eyes when I called out his name.appears comfortable. HEENT - No icterus. no thrush, oral mucosa dry NECK: Supple. HEART: S1, S2. LUNGS: Clear bilaterally. ABDOMEN: Soft, nontender, obese. Bowel sounds present. yeast in groin EXTREMITIES: Right below knee amputation, scar healthy, left lower extremity amputation stump has a wound vac. Right upper extremity AV fistula site looks okay. 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 Urinary tract infection. No leukocyte esterase or nitrite done. Not done again on repeat UA 06/24. urine had pus like appearance when allan placement was attempted, yeast on uc likely colonization allan now in place - cults neg 2. Altered mental status, likely multifactorial. CT head negative. 3. 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 End-stage renal disease, on hemodialysis. 5. Low-grade fevers. 6. leukocytosis - improved - C-diff neg 7. Anemia of chronic disease. 8. Severe protein-calorie malnutrition per speech no aspiration but slow to swallow and not able to maintain adequate po 9. Chronic atrial fibrillation. 10. High troponin with working diagnosis of non-STEMI. 11. Chronic sacral wound, superficial. 12. Yeast in groin 13. Dysphagia on ngt Plan Plan of Care - Continue Vanc,Zosyn, renal dosing Wean micafungin soon - f/u c/s and labs in am - CBC and sed rate -Wound care per vascular - await f/u - Continue local wound care. - Continue supportive care. - nutrition per Primary ? need for PEG - palliative consulted - aggressive measures continuing Discussed with RN. ABIODUN BAPTISTE MD Jul 02, 2019 07:39
[2019-07-02] MEDS: INSULIN LISPRO 300 UNITS/3 ML VIAL. SQ SCH ×3 (08:00→16:51)
[2019-07-02] MEDS: ASPIRIN CHEWABLE 81 MG TABLET. PEG SCH (09:57)
[2019-07-02] MEDS: FOLIC/VIT B COMP W-C (RENAL) TABLET. PO SCH (09:57)
[2019-07-02] MEDS: ALLOPURINOL 100 MG TABLET. PEG SCH (09:57)
[2019-07-02] MEDS: CYANOCOBALAMIN (VITAMIN B-12) 1,000 MCG TABLET. PO SCH (09:57)
[2019-07-02] MEDS: CLOPIDOGREL BISULFATE 75 MG TABLET PO SCH (09:57)
[2019-07-02] MEDS: PANTOPRAZOLE 40 MG TABLET.DR. PO SCH (09:57)
[2019-07-02] MEDS: HEPARIN for SUB-Q USE 5,000 UNIT/ML VIAL. SQ SCH ×2 (10:00→20:59)
[2019-07-02] MEDS: VITS A & D/LANOLIN TOPICAL OINTMENT 42GM TUBE. TP PRN (10:00)
[2019-07-02 11:00] VITALS: BP 94/54
--- NOTE | 2019-07-02 11:28 | PDOC ---
SUBJECTIVE ROS No change OBJECTIVE Vital Signs Vital Signs Date Time Temp Pulse Resp B/P (MAP) Pulse Ox O2 Delivery O2 Flow Rate FiO2 07/02/19 08:00 Room Air 07/02/19 07:00 97.6 68 22 131/69 (89) 98 97.6 I & 0 Intake and Output 07/02/19 07:00 Intake Total 780 ml Output Total 25 ml Balance 755 ml Intake Oral 280 ml IV Total 200 ml Tube Feeding 300 ml Output Urine Total 25 ml # Bowel Movements 2 PHYSICAL EXAM Physical Exam GENERAL: NAD NECK: Supple. HEART: S1, S2. LUNGS: Clear bilaterally. ABDOMEN: Soft, nontender, obese. Bowel sounds present. EXTREMITIES: Right below knee amputation, left lower extremity amputation stump has a wound with a necrotic area. Right upper extremity AV fistula site Neuro- Moves upper extremity, answers a few questions, follows a few commands. 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 Chronic atrial fibrillation. Palliative consulted , Family wants full aggressive care COMMENT/RELEVANT DATA Meds Current Medications Medications (Trade) Dose Ordered Sig/Mitzi Start Time Stop Time Status Last Admin Dose Admin Acetaminophen (Tylenol Supp) 650 mg PRN Q6HRS PRN 06/24/19 10:30 06/28/19 11:19 DC 06/24/19 23:03 650 MG Acetaminophen (Tylenol) 650 mg PRN Q6HRS PRN 06/25/19 18:15 07/01/19 21:48 650 MG Allopurinol (Zyloprim) 100 mg DAILY 06/25/19 18:17 07/02/19 10:00 100 MG Aspirin (Children'S Aspirin) 81 mg DAILYWBKFT 06/26/19 08:00 07/02/19 10:00 81 MG Aspirin (Ecotrin) 81 mg DAILYWBKFT 06/24/19 08:00 06/25/19 18:16 DC Atorvastatin Calcium (Lipitor) 10 mg QHS 06/25/19 21:00 07/01/19 21:48 10 MG Clopidogrel Bisulfate (Plavix) 75 mg DAILYWBKFT 06/23/19 08:00 07/02/19 10:00 75 MG Cyanocobalamin (Vitamin B-12) 1,000 mcg DAILY 06/23/19 09:00 07/02/19 10:00 1,000 MCG Darbepoetin Chito (ARANESP for DIALYSIS PTS) 60 mcg WEEKLYHS 07/01/19 21:00 07/01/19 21:48 60 MCG Dextrose 250 ml PRN Q15MIN PRN 06/25/19 01:30 Dextrose (Dextrose 50%-Water Syringe) 12.5 gm PRN Q15MIN PRN 06/25/19 01:30 06/25/19 01:41 12.5 GM Enoxaparin Sodium (Lovenox 80mg Syringe) 80 mg 1X ONCE 06/23/19 15:30 06/23/19 15:31 DC 06/23/19 15:16 80 MG Enoxaparin Sodium (Lovenox Per Pharmacy Treatment Dosing) 1 each 1X PRN 06/23/19 14:45 06/23/19 21:00 DC Heparin Sodium (Porcine) (Heparin Sodium) 5,000 unit Q12HR 06/24/19 11:00 07/02/19 10:00 5,000 UNIT Heparin Sodium/ Dextrose 500 ml @ 19.3 mls/hr CONT PRN 06/23/19 08:30 06/23/19 14:53 DC Hydromorphone HCl (Dilaudid) 0.5 mg PRN Q10MIN PRN 06/26/19 07:00 06/27/19 06:59 DC Info (Anti-Coagulation Monitoring By Pharmacy) 1 each PRN DAILY PRN 06/23/19 14:30 06/30/19 10:22 DC 06/30/19 10:17 1 EACH Info (PHARMACY MONITORING -- do not chart) 1 each PRN DAILY PRN 07/01/19 14:00 Insulin Human Lispro (HumaLOG) 0-6 UNITS BG 400-49... TIDWMEALS 06/23/19 08:00 07/01/19 12:33 4 UNITS Ketorolac Tromethamine (Toradol 15mg Vial) 15 mg PRN Q6HRS PRN 06/24/19 10:30 06/29/19 10:29 DC 06/28/19 17:19 15 MG Lidocaine HCl (Xylocaine-Mpf 1% 2ml Vial) 2 ml PRN 1X PRN 06/26/19 07:00 06/27/19 06:59 DC Metoprolol Tartrate (Lopressor Vial) 2.5 mg Q6HRS 06/25/19 18:00 06/28/19 11:19 DC 06/27/19 17:59 2.5 MG Micafungin Sodium 100 mg/Dextrose 100 ml @ 100 mls/hr Q24H 06/25/19 09:00 07/01/19 10:07 100 MLS/HR Morphine Sulfate (Morphine Sulfate) 1 mg PRN Q10MIN PRN 06/26/19 07:00 06/27/19 06:59 DC Ondansetron HCl (Zofran) 4 mg PRN Q6HRS PRN 06/26/19 07:00 06/27/19 06:59 DC Pantoprazole Sodium (Protonix) 40 mg DAILYAC 06/23/19 07:30 07/02/19 10:00 40 MG Piperacillin Sod/ Tazobactam Sod (Zosyn Per Pharmacy) 1 each PRN DAILY PRN 06/22/19 17:30 Piperacillin Sod/ Tazobactam Sod 2.25 gm/Sodium Chloride 50 ml @ 100 mls/hr Q8HRS 06/22/19 21:00 07/02/19 06:09 100 MLS/HR Quetiapine Fumarate (SEROquel) 12.5 mg PRN Q8HRS PRN 06/25/19 19:45 06/28/19 20:07 12.5 MG Ringer's Solution 1,000 ml @ 30 mls/hr Q24H 06/26/19 07:00 06/26/19 18:59 DC Sodium Chloride 1,000 ml @ 400 mls/hr Q2H30M PRN 06/29/19 12:00 06/29/19 23:59 DC Tramadol HCl (Ultram) 25 mg PRN Q6HRS PRN 06/24/19 10:30 07/01/19 13:30 25 MG Vancomycin HCl (Vanco Per Pharmacy) 1 each PRN DAILY PRN 06/22/19 17:30 07/01/19 15:00 1 EACH Vancomycin HCl (Vancomycin Random Level) 1 each 1X ONCE 07/03/19 06:00 07/03/19 06:01 Vancomycin HCl 500 mg/Sodium Chloride 100 ml @ 100 mls/hr QMWF 06/24/19 16:00 07/01/19 18:48 100 MLS/HR Vancomycin HCl 2 gm/Sodium Chloride 500 ml @ 250 mls/hr 1X ONCE 06/22/19 11:30 06/22/19 13:29 DC 06/22/19 12:32 250 MLS/HR Vitamin A/Vitamin D (Vitamin A & D Ointment) 1 héctor PRN BID PRN 06/26/19 06:00 07/02/19 10:00 1 HÉCTOR Vitamin B Complex/ Vitamin C (Rosalie-Judah) 1 tab DAILY 06/23/19 09:00 07/02/19 10:00 1 TAB Lab Laboratory Tests Test 07/02/19 02:40 07/02/19 06:13 07/02/19 08:15 Glucose (Fingerstick) 116 mg/dL (70-99) 125 mg/dL (70-99) 137 mg/dL (70-99) Results All relevant outside records, renal labs, imaging studies, telemetry/EKG's were reviewed. BLANCA SANTA MD Jul 02, 2019 11:28
[2019-07-02] MEDS: traMADol 50 MG TABLET PO PRN (12:40)
--- NOTE | 2019-07-02 13:57 | PDOC2 ---
GI CONSULT Reason For Consult: PEG HPI: HPI: 78 y/o male who we have seen in the past. Admitted 06/22/19 w/ AMS. Has UTI and left BKA site wound w/ wound vac. Had swallow eval w/ recommendation for dysphagia I/honey-thick liquids. Also had Dobhoff for awhile that came out yesterday during HD. D/w nurse - swallows very slowly. Concern for ability to maintain adequate nutrition. PC has seen and d/w daughter and we are asked to see to consider PEG placement. On Plavix, ASA, and Heparin SQ. To obtain consent for central line placement. No meaningful information from patient today. From past encounters - h/o GERD on PPI. EGD and colonoscopy (Dr. Baker) 2012: mild esophagitis, gastric nodule (hyperplastic polyp on biopsy), adenomatous and hyperplastic colon polyps, diverticulosis. Colonoscopy (Dr. Buckley) 2016: two adenomatous polyp in transverse colon, sigmoid diverticulosis. Known cholelithiasis on imaging. No liver or pancreas history. N/v improved w/ Reglan in the past. PMH: PMH: A Fib, CAD, HTN, HLD, PAD w/ LE stents, CVA, ESRD on HD, DM, peripheral neuropathy, GERD, cholelithiasis, adenomatous colon polyps, diverticulosis, pacemaker, bilateral BKA FH: Family History: No pertinent hx Social History: Smoke: No ALCOHOL: none Drugs: None ROS: Difficult to obtain. Vitals: Vitals: Vital Signs Date Time Temp Pulse Resp B/P (MAP) Pulse Ox O2 Delivery O2 Flow Rate FiO2 07/02/19 12:40 100 Room Air 07/02/19 11:00 97.5 67 22 94/54 (67) 97.5 Labs: Labs: Laboratory Tests Test 07/02/19 02:40 07/02/19 06:13 07/02/19 08:15 07/02/19 12:17 Glucose (Fingerstick) 116 mg/dL (70-99) 125 mg/dL (70-99) 137 mg/dL (70-99) 130 mg/dL (70-99) Allergies: Coded Allergies: I S O L A T I O N *CONTACT* (Verified Allergy, Unknown, 06/23/19) mrsa/vre No Known Medication Allergies (Verified Allergy, Unknown, 06/23/19) Medications: Current Medications Medications (Trade) Dose Ordered Sig/Mitzi Route PRN Reason Start Time Stop Time Status Last Admin Dose Admin Darbepoetin Chito (ARANESP for DIALYSIS PTS) 60 mcg WEEKLYHS SQ 07/01/19 21:00 07/01/19 21:48 Imaging: Imaging: Reviewed in [employer]. Speech Path Pt w/o s/s aspiration this date across multiple trials of puree and honey thick liquids. However, time required to produce swallow w/both consistencies is not c/w pt meeting nutritional needs via po intake alone. PLAN: Initiate dysphagia I diet w/honey thick liquids; consult dietitian re: poss need for oral vs non-oral nutrition. Precautions posted, diet orders entered, d/w RN Joslyn. PE: GEN: NAD HEENT: Atraumatic, PERRL LUNGS: CTAB HEART: RRR ABD: NABS, S/ND/NT EXTREMITY: BBKA SKIN: No rashes, no jaundice NEURO/PSYCH: moans A/P: A/P: AMS, UTI, left BKA site wound, dysphagia/need for non-oral nutrition GERD - on PPI CRC screen, h/o adenomatous polyps - UTD Cholelithiasis PVD, NSTEMI, CAD, pA Fib - on Plavix, ASA, SQ Hep -- Discussed w/ daughter Jasmyne - reviewed PEG procedure (she is familiar because her mother has one) and possible risks - she would like to proceed. Would need to hold Plavix - ?clearance from cardiology/vascular. Recheck INR at some point - 1.8 on 06/24. Will review w/ Dr. Mc. EULOGIO SOLORIO Jul 02, 2019 13:57
--- NOTE | 2019-07-02 14:45 | PDOC ---
Date and Time Asked to place central line for IV access Sterile prep, chlorasept,large drape, gown,gloves.mask R Ext jug entered with ease. Wire would not pass under clavicle. R Int jug easily entered, Sono verified venous placement as well as wire. 3 lumen catheter, sutured at 16cm. Biopatch,sterile dressing applied. 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 Will d/w IRad Current Medications Current Medications Vancomycin HCl 250 ml @ 250 mls/hr 1X ONCE IV ; Start 06/22/19 at 10:45; Stop 06/22/19 at 11:44; Status UNV Piperacillin Sod/ Tazobactam Sod 2.25 gm/Sodium Chloride 50 ml @ 100 mls/hr 1X ONCE IV Last administered on 06/22/19at 11:55; Start 06/22/19 at 10:45; Stop 06/22/19 at 11:14; Status DC Sodium Chloride 1,000 ml @ 100 mls/hr Q10H IV Last administered on 06/22/19at 11:55; Start 06/22/19 at 10:38; Stop 06/22/19 at 20:37; Status DC Vancomycin HCl 2 gm/Sodium Chloride 500 ml @ 250 mls/hr 1X ONCE IV Last administered on 06/22/19at 12:32; Start 06/22/19 at 11:30; Stop 06/22/19 at 13:29; Status DC Info (PHARMACY MONITORING -- do not chart) 1 each PRN DAILY PRN MC SEE COMMENTS; Start 06/22/19 at 16:30; Stop 06/24/19 at 11:38; Status DC Info (PHARMACY MONITORING -- do not chart) 1 each PRN DAILY PRN MC SEE COMMENTS; Start 06/22/19 at 16:30; Status UNV Sodium Chloride 1,000 ml @ 40 mls/hr Q24H IV Last administered on 06/24/19at 18:31; Start 06/22/19 at 17:30; Stop 06/25/19 at 19:44; Status DC Vancomycin HCl (Vanco Per Pharmacy) 1 each PRN DAILY PRN MC SEE COMMENTS Last administered on 07/01/19at 15:00; Start 06/22/19 at 17:30 Piperacillin Sod/ Tazobactam Sod (Zosyn Per Pharmacy) 1 each PRN DAILY PRN MC SEE COMMENTS; Start 06/22/19 at 17:30 Acetaminophen (Tylenol) 650 mg PRN Q6HRS PRN PO MILD PAIN / TEMP; Start 06/22/19 at 17:30; Stop 06/25/19 at 18:15; Status DC Ondansetron HCl (Zofran) 4 mg PRN Q6HRS PRN IV NAUSEA/VOMITING; Start 06/22/19 at 17:30 Clopidogrel Bisulfate (Plavix) 75 mg DAILYWBKFT PO Last administered on 07/02/19at 10:00; Start 06/23/19 at 08:00; Stop 07/02/19 at 14:26; Status DC Vitamin B Complex/ Vitamin C (Rosalie-Judah) 1 tab DAILY PO Last administered on 07/02/19at 10:00; Start 06/23/19 at 09:00 Allopurinol (Zyloprim) 100 mg DAILY PO ; Start 06/23/19 at 09:00; Stop 06/25/19 at 18:17; Status DC Atorvastatin Calcium (Lipitor) 40 mg QHS PO Last administered on 06/22/19at 21:37; Start 06/22/19 at 21:00; Stop 06/25/19 at 12:19; Status DC Pantoprazole Sodium (Protonix) 40 mg DAILYAC PO Last administered on 07/02/19at 10:00; Start 06/23/19 at 07:30 Cyanocobalamin (Vitamin B-12) 1,000 mcg DAILY PO Last administered on 07/02/19at 10:00; Start 06/23/19 at 09:00 Piperacillin Sod/ Tazobactam Sod 2.25 gm/Sodium Chloride 50 ml @ 100 mls/hr Q8HRS IV Last administered on 07/02/19at 06:09; Start 06/22/19 at 21:00 Heparin Sodium (Porcine) (Heparin Sodium) 5,000 unit BID SQ Last administered on 06/22/19at 21:37; Start 06/22/19 at 21:00; Stop 06/23/19 at 08:23; Status DC Insulin Human Lispro (HumaLOG) 0-6 UNITS BG 400-49... TIDWMEALS SQ Last administered on 07/01/19at 12:33; Start 06/23/19 at 08:00 Vancomycin HCl (Vancomycin Random Level) 1 each 1X ONCE MC Last administered on 06/24/19at 06:37; Start 06/24/19 at 06:00; Stop 06/24/19 at 06:01; Status DC Heparin Sodium/ Dextrose 500 ml @ 19.3 mls/hr CONT PRN IV SEE I/O RECORD; Start 06/23/19 at 08:30; Stop 06/23/19 at 14:53; Status DC Heparin Sodium (Porcine) (Heparin Sodium) 2,000 unit PRN Q6HRS PRN IV FOR UFH LEVEL LESS THAN 0.2; Start 06/23/19 at 08:30; Stop 06/23/19 at 14:53; Status DC Aspirin (Ecotrin) 325 mg 1X ONCE PO ; Start 06/23/19 at 10:30; Stop 06/23/19 at 10:31; Status DC Aspirin (Ecotrin) 81 mg DAILYWBKFT PO ; Start 06/24/19 at 08:00; Stop 06/25/19 at 18:16; Status DC Ondansetron HCl (Zofran) 4 mg PRN Q6HRS PRN IV NAUSEA/VOMITING; Start 06/24/19 at 07:00; Stop 06/25/19 at 06:59; Status DC Morphine Sulfate (Morphine Sulfate) 1 mg PRN Q10MIN PRN IV SEVERE PAIN 7-10; Start 06/24/19 at 07:00; Stop 06/24/19 at 10:06; Status DC Ringer's Solution 1,000 ml @ 30 mls/hr Q24H IV ; Start 06/24/19 at 07:00; Stop 06/24/19 at 18:59; Status DC Lidocaine HCl (Xylocaine-Mpf 1% 2ml Vial) 2 ml PRN 1X PRN ID PRIOR TO IV START; Start 06/24/19 at 07:00; Stop 06/25/19 at 06:59; Status DC Hydromorphone HCl (Dilaudid) 0.5 mg PRN Q10MIN PRN IV SEV PAIN, Second choice; Start 06/24/19 at 07:00; Stop 06/24/19 at 10:06; Status DC Info (Anti-Coagulation Monitoring By Pharmacy) 1 each PRN DAILY PRN MC SEE COMMENTS Last administered on 06/30/19at 10:17; Start 06/23/19 at 14:30; Stop 06/30/19 at 10:22; Status DC Enoxaparin Sodium (Lovenox Per Pharmacy Treatment Dosing) 1 each 1X PRN MC SEE COMMENTS; Start 06/23/19 at 14:45; Stop 06/23/19 at 21:00; Status DC Enoxaparin Sodium (Lovenox 80mg Syringe) 80 mg 1X ONCE SQ Last administered on 06/23/19at 15:16; Start 06/23/19 at 15:30; Stop 06/23/19 at 15:31; Status DC Heparin Sodium (Porcine) (Heparin Sodium) 5,000 unit Q12HR SQ Last administered on 07/02/19at 10:00; Start 06/24/19 at 11:00 Acetaminophen (Tylenol Supp) 650 mg PRN Q6HRS PRN CA MILD PAIN / TEMP Last administered on 06/24/19at 23:03; Start 06/24/19 at 10:30; Stop 06/28/19 at 11:19; Status DC Tramadol HCl (Ultram) 25 mg PRN Q6HRS PRN PO PAIN MODERATE PAIN Last administered on 07/02/19at 12:40; Start 06/24/19 at 10:30 Ketorolac Tromethamine (Toradol 15mg Vial) 15 mg PRN Q6HRS PRN IV PAIN Last administered on 06/28/19at 17:19; Start 06/24/19 at 10:30; Stop 06/29/19 at 10:29; Status DC Sodium Chloride 1,000 ml @ 1,000 mls/hr Q1H PRN IV hypotension; Start 06/24/19 at 11:27; Stop 06/24/19 at 17:26; Status DC Sodium Chloride 1,000 ml @ 400 mls/hr Q2H30M PRN IV PATENCY; Start 06/24/19 at 11:27; Stop 06/24/19 at 23:26; Status DC Info (PHARMACY MONITORING -- do not chart) 1 each PRN DAILY PRN MC SEE COMMENTS; Start 06/24/19 at 11:30; Status Cancel Info (PHARMACY MONITORING -- do not chart) 1 each PRN DAILY PRN MC SEE COMMENTS; Start 06/24/19 at 11:30; Status UNV Vancomycin HCl 500 mg/Sodium Chloride 100 ml @ 100 mls/hr QMWF IV Last administered on 07/01/19at 18:48; Start 06/24/19 at 16:00 Dextrose (Dextrose 50%-Water Syringe) 12.5 gm PRN Q15MIN PRN IV SEE COMMENTS Last administered on 06/25/19at 01:41; Start 06/25/19 at 01:30 Dextrose 250 ml PRN Q15MIN PRN IV SEE COMMENTS; Start 06/25/19 at 01:30 Micafungin Sodium 100 mg/Dextrose 100 ml @ 100 mls/hr Q24H IV Last administered on 07/01/19at 10:07; Start 06/25/19 at 09:00 Metoprolol Tartrate (Lopressor Vial) 2.5 mg Q6HRS IVP Last administered on 06/27/19at 17:59; Start 06/25/19 at 18:00; Stop 06/28/19 at 11:19; Status DC Atorvastatin Calcium (Lipitor) 10 mg QHS PEG Last administered on 07/01/19at 21:48; Start 06/25/19 at 21:00 Ondansetron HCl (Zofran) 4 mg PRN Q6HRS PRN IV NAUSEA/VOMITING; Start 06/26/19 at 07:00; Stop 06/27/19 at 06:59; Status DC Morphine Sulfate (Morphine Sulfate) 1 mg PRN Q10MIN PRN IV SEVERE PAIN 7-10; Start 06/26/19 at 07:00; Stop 06/27/19 at 06:59; Status DC Ringer's Solution 1,000 ml @ 30 mls/hr Q24H IV ; Start 06/26/19 at 07:00; Stop 06/26/19 at 18:59; Status DC Lidocaine HCl (Xylocaine-Mpf 1% 2ml Vial) 2 ml PRN 1X PRN ID PRIOR TO IV START; Start 06/26/19 at 07:00; Stop 06/27/19 at 06:59; Status DC Hydromorphone HCl (Dilaudid) 0.5 mg PRN Q10MIN PRN IV SEV PAIN, Second choice; Start 06/26/19 at 07:00; Stop 06/27/19 at 06:59; Status DC Acetaminophen (Tylenol) 650 mg PRN Q6HRS PRN PEG MILD PAIN / TEMP Last administered on 07/01/19at 21:48; Start 06/25/19 at 18:15 Aspirin (Children'S Aspirin) 81 mg DAILYWBKFT PEG Last administered on 07/02/19at 10:00; Start 06/26/19 at 08:00 Allopurinol (Zyloprim) 100 mg DAILY PEG Last administered on 07/02/19at 10:00; Start 06/25/19 at 18:17 Quetiapine Fumarate (SEROquel) 12.5 mg PRN Q8HRS PRN PO PSYCHOTIC BEHAVIOR Last administered on 06/28/19at 20:07; Start 06/25/19 at 19:45 Vitamin A/Vitamin D (Vitamin A & D Ointment) 1 héctor PRN BID PRN TP SKIN PROTECTION Last administered on 07/02/19at 10:00; Start 06/26/19 at 06:00 Sodium Chloride 1,000 ml @ 1,000 mls/hr Q1H PRN IV hypotension; Start 06/26/19 at 12:41; Stop 06/26/19 at 18:40; Status DC Info (PHARMACY MONITORING -- do not chart) 1 each PRN DAILY PRN MC SEE COMMENTS; Start 06/26/19 at 12:45; Status UNV Info (PHARMACY MONITORING -- do not chart) 1 each PRN DAILY PRN MC SEE COMMENTS; Start 06/26/19 at 12:45; Status Cancel Sodium Chloride 1,000 ml @ 1,000 mls/hr Q1H PRN IV hypotension; Start 06/29/19 at 12:00; Stop 06/29/19 at 17:59; Status DC Sodium Chloride 1,000 ml @ 400 mls/hr Q2H30M PRN IV PATENCY; Start 06/29/19 at 12:00; Stop 06/29/19 at 23:59; Status DC Info (PHARMACY MONITORING -- do not chart) 1 each PRN DAILY PRN MC SEE COMMENTS; Start 06/29/19 at 16:00; Status UNV Info (PHARMACY MONITORING -- do not chart) 1 each PRN DAILY PRN MC SEE CO MMENTS; Start 06/29/19 at 16:00; Status Cancel Info (PHARMACY MONITORING -- do not chart) 1 each PRN DAILY PRN MC SEE COMMENTS ; Start 07/01/19 at 14:00; Status UNV Info (PHARMACY MONITORING -- do not chart) 1 each PRN DAILY PRN MC SEE COMMENTS; Start 07/01/19 at 14:00 Darbepoetin [place] (ARANESP for DIALYSIS PTS) 60 mcg WEEKLYHS SQ Last administered on 07/01/19at 21:48; Start 07/01/19 at 21:00 Vancomycin HCl (Vancomycin Random Level) 1 each 1X ONCE MC ; Start 07/03/19 at 06:00; Stop 07/03/19 at 06:01 Active Scripts Active [place] 5-325 Tablet (Acetaminophen/Hydrocodone Bitart) 1 Each Tablet 0.5 Tab PO Q4HRS Zyvox (Linezolid) 600 Mg Tablet 600 Mg PO BID 4 Days Amox Tr-K Clv 500-125 Mg Tab (Amoxicillin/Potassium Clav) 1 Each Tablet 1 Tab PO DAILY 4 Days Tramadol Hcl 50 Mg Tablet 50 Mg PO PRN Q6HRS PRN Ondansetron Odt (Ondansetron) 4 Mg Tab.rapdis 4 Mg PO Q6HRS PRN Humalog (Insulin Lispro) 100 Unit/1 Ml Insuln.pen 0 Units SQ TIDWMEALS 30 Days BG 150-199= 1 units 200-299= 2 units 300-399= 4 units 400-499= 6 units ac tid sliding scale Reported Omeprazole 20 Mg Tablet.dr 1 Tab PO DAILY Vitamin D3 (Cholecalciferol (Vitamin D3)) 1,000 Unit Tablet 1 Tab PO DAILY Vitamin B-12 (Cyanocobalamin (Vitamin B-12)) 1,000 Mcg Tablet 1 Tab PO DAILY Senna (Sennosides) 8.6 Mg Tablet 8.6 Mg PO PRN DAILY PRN 2 tabs Renvela (Sevelamer Carbonate) 800 Mg Tablet 800 Mg PO TIDWMEALS Renal Caps Softgel (Folic Acid/Vitamin B Comp W-C) 1 Mg Capsule 1 Mg PO DAILY Reglan (Metoclopramide Hcl) 10 Mg Tablet 5 Mg PO TID Probiotic (Lactobacillus Acidophilus) 1 Each Capsule 1 Each PO BID Milk Of Magnesia (Magnesium Hydroxide) 400 Mg/5 Ml Oral.susp 400 Mg PO PRN DAILY PRN Lipitor (Atorvastatin Calcium) 40 Mg Tablet 1 Tab PO QHS Humalog (Insulin Lispro) 100 Unit/1 Ml Insuln.pen 100 Unit SQ TIDBFRMEAL 150-199=1 unit 200-299=2 units 300-399=4 units 100-499=6 units Clopidogrel (Clopidogrel Bisulfate) 75 Mg Tablet 1 Tab PO DAILY Duoneb 0.5-3(2.5) Mg/3 Ml (Albuterol/Ipratropium) 3 Ml Ampul.neb 3 Ml NEB PRN Q4HRS PRN Lac-Hydrin Five (Ammonium Lactate) 226 Gm Lotion 226 Gm TP BID Allopurinol 100 Mg Tablet 1 Tab PO DAILY Tylenol (Acetaminophen) 325 Mg Tablet 1 Tab PO PRN Q4HRS Aspirin 81 Mg Tab.chew 81 Mg PO DAILY Pertinent Labs/Test Laboratory Tests Test 06/30/19 17:52 07/01/19 04:15 07/01/19 05:40 07/01/19 11:22 Glucose (Fingerstick) 180 mg/dL (70-99) 173 mg/dL (70-99) 347 mg/dL (70-99) White Blood Count 8.9 x10^3/uL (4.0-11.0) Red Blood Count 3.10 x10^6/uL (4.30-5.70) Hemoglobin 8.7 g/dL (13.0-17.5) Hematocrit 27.0 % (39.0-53.0) Mean Corpuscular Volume 87 fL (79-100) Mean Corpuscular Hemoglobin 28 pg (25-35) Mean Corpuscular Hemoglobin Concent 32 g/dL (31-37) Red Cell Distribution Width 19.0 % (11.5-14.5) Platelet Count 380 x10^3/uL (140-400) Neutrophils (%) (Auto) 71 % (31-73) Lymphocytes (%) (Auto) 14 % (24-48) Monocytes (%) (Auto) 9 % (0-9) Eosinophils (%) (Auto) 5 % (0-3) Basophils (%) (Auto) 1 % (0-3) Neutrophils # (Auto) 6.3 x10^3/uL (1.8-7.7) Lymphocytes # (Auto) 1.3 x10^3/uL (1.0-4.8) Monocytes # (Auto) 0.8 x10^3/uL (0.0-1.1) Eosinophils # (Auto) 0.4 x10^3/uL (0.0-0.7) Basophils # (Auto) 0.1 x10^3/uL (0.0-0.2) Sodium Level 135 mmol/L (136-145) Potassium Level 3.7 mmol/L (3.5-5.1) Chloride Level 95 mmol/L (98-107) Carbon Dioxide Level 30 mmol/L (21-32) Anion Gap 10 (6-14) Blood Urea Nitrogen 65 mg/dL (8-26) Creatinine 5.2 mg/dL (0.7-1.3) Estimated GFR (Cockcroft-Gault) 13.0 Glucose Level 206 mg/dL (70-99) Calcium Level 9.4 mg/dL (8.5-10.1) Test 07/02/19 02:40 07/02/19 06:13 07/02/19 08:15 07/02/19 12:17 Glucose (Fingerstick) 116 mg/dL (70-99) 125 mg/dL (70-99) 137 mg/dL (70-99) 130 mg/dL (70-99) Laboratory Tests Test 07/02/19 02:40 07/02/19 06:13 07/02/19 08:15 07/02/19 12:17 Glucose (Fingerstick) 116 mg/dL (70-99) 125 mg/dL (70-99) 137 mg/dL (70-99) 130 mg/dL (70-99) LAST VITALS Vital Signs Date Time Temp Pulse Resp B/P (MAP) Pulse Ox O2 Delivery O2 Flow Rate FiO2 07/02/19 13:52 100 Room Air 07/02/19 11:00 97.5 67 22 94/54 (67) 97.5 NASRIN CATRAGENA MD Jul 02, 2019 14:45
--- NOTE | 2019-07-02 14:51 | PDOC ---
Date and Time 3 lumen cnetral line position d/w Dr Faust who will reposition catheter with flouroscopic guidance Current Medications Current Medications Vancomycin HCl 250 ml @ 250 mls/hr 1X ONCE IV ; Start 06/22/19 at 10:45; Stop 06/22/19 at 11:44; Status UNV Piperacillin Sod/ Tazobactam Sod 2.25 gm/Sodium Chloride 50 ml @ 100 mls/hr 1X ONCE IV Last administered on 06/22/19at 11:55; Start 06/22/19 at 10:45; Stop 06/22/19 at 11:14; Status DC Sodium Chloride 1,000 ml @ 100 mls/hr Q10H IV Last administered on 06/22/19at 11:55; Start 06/22/19 at 10:38; Stop 06/22/19 at 20:37; Status DC Vancomycin HCl 2 gm/Sodium Chloride 500 ml @ 250 mls/hr 1X ONCE IV Last administered on 06/22/19at 12:32; Start 06/22/19 at 11:30; Stop 06/22/19 at 13:29; Status DC Info (PHARMACY MONITORING -- do not chart) 1 each PRN DAILY PRN MC SEE COMM ENTS; Start 06/22/19 at 16:30; Stop 06/24/19 at 11:38; Status DC Info (PHARMACY MONITORING -- do not chart) 1 each PRN DAILY PRN MC SEE COMMENTS; Start 06/22/19 at 16:30; Status UNV Sodium Chloride 1,000 ml @ 40 mls/hr Q24H IV Last administered on 06/24/19at 18:31; Start 06/22/19 at 17:30; Stop 06/25/19 at 19:44; Status DC Vancomycin HCl (Vanco Per Pharmacy) 1 each PRN DAILY PRN MC SEE COMMENTS Last administered on 07/01/19at 15:00; Start 06/22/19 at 17:30 Piperacillin Sod/ Tazobactam Sod (Zosyn Per Pharmacy) 1 each PRN DAILY PRN MC SEE COMMENTS; Start 06/22/19 at 17:30 Acetaminophen (Tylenol) 650 mg PRN Q6HRS PRN PO MILD PAIN / TEMP; Start 06/22/19 at 17:30; Stop 06/25/19 at 18:15; Status DC Ondansetron HCl (Zofran) 4 mg PRN Q6HRS PRN IV NAUSEA/VOMITING; Start 06/22/19 at 17:30 Clopidogrel Bisulfate (Plavix) 75 mg DAILYWBKFT PO Last administered on 07/02/19 10:00; Start 06/23/19 at 08:00; Stop 07/02/19 at 14:26; Status DC Vitamin B Complex/ Vitamin C (Rosalie-Judah) 1 tab DAILY PO Last administered on 07/02/19at 10:00; Start 06/23/19 at 09:00 Allopurinol (Zyloprim) 100 mg DAILY PO ; Start 06/23/19 at 09:00; Stop 06/25/19 at 18:17; Status DC Atorvastatin Calcium (Lipitor) 40 mg QHS PO Last administered on 06/22/19 21:37; Start 06/22/19 at 21:00; Stop 06/25/19 at 12:19; Status DC Pantoprazole Sodium (Protonix) 40 mg DAILYAC PO Last administered on 07/02/19at 10:00; Start 06/23/19 at 07:30 Cyanocobalamin (Vitamin B-12) 1,000 mcg DAILY PO Last administered on 07/02/19 10:00; Start 06/23/19 at 09:00 Piperacillin Sod/ Tazobactam Sod 2.25 gm/Sodium Chloride 50 ml @ 100 mls/hr Q8HRS IV Last administered on 07/02/19 06:09; Start 06/22/19 at 21:00 Heparin Sodium (Porcine) (Heparin Sodium) 5,000 unit BID SQ Last administered on 06/22/19at 21:37; Start 06/22/19 at 21:00; Stop 06/23/19 at 08:23; Status DC Insulin Human Lispro (HumaLOG) 0-6 UNITS BG 400-49... TIDWMEALS SQ Last administered on 07/01/19at 12:33; Start 06/23/19 at 08:00 Vancomycin HCl (Vancomycin Random Level) 1 each 1X ONCE MC Last administered on 06/24/19 06:37; Start 06/24/19 at 06:00; Stop 06/24/19 at 06:01; Status DC Heparin Sodium/ Dextrose 500 ml @ 19.3 mls/hr CONT PRN IV SEE I/O RECORD; Start 06/23/19 at 08:30; Stop 06/23/19 at 14:53; Status DC Heparin Sodium (Porcine) (Heparin Sodium) 2,000 unit PRN Q6HRS PRN IV FOR UFH LEVEL LESS THAN 0.2; Start 06/23/19 at 08:30; Stop 06/23/19 at 14:53; Status DC Aspirin (Ecotrin) 325 mg 1X ONCE PO ; Start 06/23/19 at 10:30; Stop 06/23/19 at 10:31; Status DC Aspirin (Ecotrin) 81 mg DAILYWBKFT PO ; Start 06/24/19 at 08:00; Stop 06/25/19 at 18:16; Status DC Ondansetron HCl (Zofran) 4 mg PRN Q6HRS PRN IV NAUSEA/VOMITING; Start 06/24/19 at 07:00; Stop 06/25/19 at 06:59; Status DC Morphine Sulfate (Morphine Sulfate) 1 mg PRN Q10MIN PRN IV SEVERE PAIN 7-10; Start 06/24/19 at 07:00; Stop 06/24/19 at 10:06; Status DC Ringer's Solution 1,000 ml @ 30 mls/hr Q24H IV ; Start 06/24/19 at 07:00; Stop 06/24/19 at 18:59; Status DC Lidocaine HCl (Xylocaine-Mpf 1% 2ml Vial) 2 ml PRN 1X PRN ID PRIOR TO IV START; Start 06/24/19 at 07:00; Stop 06/25/19 at 06:59; Status DC Hydromorphone HCl (Dilaudid) 0.5 mg PRN Q10MIN PRN IV SEV PAIN, Second choice; Start 06/24/19 at 07:00; Stop 06/24/19 at 10:06; Status DC Info (Anti-Coagulation Monitoring By Pharmacy) 1 each PRN DAILY PRN MC SEE COMMENTS Last administered on 06/30/19at 10:17; Start 06/23/19 at 14:30; Stop 06/30/19 at 10:22; Status DC Enoxaparin Sodium (Lovenox Per Pharmacy Treatment Dosing) 1 each 1X PRN MC SEE COMMENTS; Start 06/23/19 at 14:45; Stop 06/23/19 at 21:00; Status DC Enoxaparin Sodium (Lovenox 80mg Syringe) 80 mg 1X ONCE SQ Last administered on 06/23/19 15:16; Start 06/23/19 at 15:30; Stop 06/23/19 at 15:31; Status DC Heparin Sodium (Porcine) (Heparin Sodium) 5,000 unit Q12HR SQ Last administered on 07/02/19at 10:00; Start 06/24/19 at 11:00 Acetaminophen (Tylenol Supp) 650 mg PRN Q6HRS PRN SC MILD PAIN / TEMP Last administered on 06/24/19at 23:03; Start 06/24/19 at 10:30; Stop 06/28/19 at 11:19; Status DC Tramadol HCl (Ultram) 25 mg PRN Q6HRS PRN PO PAIN MODERATE PAIN Last administered on 07/02/19at 12:40; Start 06/24/19 at 10:30 Ketorolac Tromethamine (Toradol 15mg Vial) 15 mg PRN Q6HRS PRN IV PAIN Last administered on 06/28/19at 17:19; Start 06/24/19 at 10:30; Stop 06/29/19 at 10:29; Status DC Sodium Chloride 1,000 ml @ 1,000 mls/hr Q1H PRN IV hypotension; Start 06/24/19 at 11:27; Stop 06/24/19 at 17:26; Status DC Sodium Chloride 1,000 ml @ 400 mls/hr Q2H30M PRN IV PATENCY; Start 06/24/19 at 11:27; Stop 06/24/19 at 23:26; Status DC Info (PHARMACY MONITORING -- do not chart) 1 each PRN DAILY PRN MC SEE COMMENTS; Start 06/24/19 at 11:30; Status Cancel Info (PHARMACY MONITORING -- do not chart) 1 each PRN DAILY PRN MC SEE COMMENTS; Start 06/24/19 at 11:30; Status UNV Vancomycin HCl 500 mg/Sodium Chloride 100 ml @ 100 mls/hr QMWF IV Last administered on 07/01/19at 18:48; Start 06/24/19 at 16:00 Dextrose (Dextrose 50%-Water Syringe) 12.5 gm PRN Q15MIN PRN IV SEE COMMENTS Last administered on 06/25/19at 01:41; Start 06/25/19 at 01:30 Dextrose 250 ml PRN Q15MIN PRN IV SEE COMMENTS; Start 06/25/19 at 01:30 Micafungin Sodium 100 mg/Dextrose 100 ml @ 100 mls/hr Q24H IV Last administered on 07/01/19at 10:07; Start 06/25/19 at 09:00 Metoprolol Tartrate (Lopressor Vial) 2.5 mg Q6HRS IVP Last administered on 06/27/19at 17:59; Start 06/25/19 at 18:00; Stop 06/28/19 at 11:19; Status DC Atorvastatin Calcium (Lipitor) 10 mg QHS PEG Last administered on 07/01/19at 21:48; Start 06/25/19 at 21:00 Ondansetron HCl (Zofran) 4 mg PRN Q6HRS PRN IV NAUSEA/VOMITING; Start 06/26/19 at 07:00; Stop 06/27/19 at 06:59; Status DC Morphine Sulfate (Morphine Sulfate) 1 mg PRN Q10MIN PRN IV SEVERE PAIN 7-10; Start 06/26/19 at 07:00; Stop 06/27/19 at 06:59; Status DC Ringer's Solution 1,000 ml @ 30 mls/hr Q24H IV ; Start 06/26/19 at 07:00; Stop 06/26/19 at 18:59; Status DC Lidocaine HCl (Xylocaine-Mpf 1% 2ml Vial) 2 ml PRN 1X PRN ID PRIOR TO IV START; Start 06/26/19 at 07:00; Stop 06/27/19 at 06:59; Status DC Hydromorphone HCl (Dilaudid) 0.5 mg PRN Q10MIN PRN IV SEV PAIN, Second choice; Start 06/26/19 at 07:00; Stop 06/27/19 at 06:59; Status DC Acetaminophen (Tylenol) 650 mg PRN Q6HRS PRN PEG MILD PAIN / TEMP Last administered on 07/01/19at 21:48; Start 06/25/19 at 18:15 Aspirin (Children'S Aspirin) 81 mg DAILYWBKFT PEG Last administered on 07/02/19at 10:00; Start 06/26/19 at 08:00 Allopurinol (Zyloprim) 100 mg DAILY PEG Last administered on 07/02/19at 10:00; Start 06/25/19 at 18:17 Quetiapine Fumarate (SEROquel) 12.5 mg PRN Q8HRS PRN PO PSYCHOTIC BEHAVIOR Last administered on 06/28/19at 20:07; Start 06/25/19 at 19:45 Vitamin A/Vitamin D (Vitamin A & D Ointment) 1 héctor PRN BID PRN TP SKIN PROTEC TION Last administered on 07/02/19at 10:00; Start 06/26/19 at 06:00 Sodium Chloride 1,000 ml @ 1,000 mls/hr Q1H PRN IV hypotension; Start 06/26/19 at 12:41; Stop 06/26/19 at 18:40; Status DC Info (PHARMACY MONITORING -- do not chart) 1 each PRN DAILY PRN MC SEE COMMENTS; Start 06/26/19 at 12:45; Status UNV Info (PHARMACY MONITORING -- do not chart) 1 each PRN DAILY PRN MC SEE C OMMENTS; Start 06/26/19 at 12:45; Status Cancel Sodium Chloride 1,000 ml @ 1,000 mls/hr Q1H PRN IV hypotension; Start 06/29/19 at 12:00; Stop 06/29/19 at 17:59; Status DC Sodium Chloride 1,000 ml @ 400 mls/hr Q2H30M PRN IV PATENCY; Start 06/29/19 at 12:00; Stop 06/29/19 at 23:59; Status DC Info (PHARMACY MONITORING -- do not chart) 1 each PRN DAILY PRN MC SEE COMMENTS; Start 06/29/19 at 16:00; Status UNV Info (PHARMACY MONITORING -- do not chart) 1 each PRN DAILY PRN MC SEE COMMENTS; Start 06/29/19 at 16:00; Status Cancel Info (PHARMACY MONITORING -- do not chart) 1 each PRN DAILY PRN MC SEE COMMENTS; Start 07/01/19 at 14:00; Status UNV Info (PHARMACY MONITORING -- do not chart) 1 each PRN DAILY PRN MC SEE COMMENTS; Start 07/01/19 at 14:00 Darbepoetin Chito (ARANESP for DIALYSIS PTS) 60 mcg WEEKLYHS SQ Last administered on 07/01/19at 21:48; Start 07/01/19 at 21:00 Vancomycin HCl (Vancomycin Random Level) 1 each 1X ONCE MC ; Start 07/03/19 at 06:00; Stop 07/03/19 at 06:01 Active Scripts Active Roselle 5-325 Tablet (Acetaminophen/Hydrocodone Bitart) 1 Each Tablet 0.5 Tab PO Q4HRS Zyvox (Linezolid) 600 Mg Tablet 600 Mg PO BID 4 Days Amox Tr-K Clv 500-125 Mg Tab (Amoxicillin/Potassium Clav) 1 Each Tablet 1 Tab PO DAILY 4 Days Tramadol Hcl 50 Mg Tablet 50 Mg PO PRN Q6HRS PRN Ondansetron Odt (Ondansetron) 4 Mg Tab.rapdis 4 Mg PO Q6HRS PRN Humalog (Insulin Lispro) 100 Unit/1 Ml Insuln.pen 0 Units SQ TIDWMEALS 30 Days BG 150-199= 1 units 200-299= 2 units 300-399= 4 units 400-499= 6 units ac tid sliding scale Reported Omeprazole 20 Mg Tablet.dr 1 Tab PO DAILY Vitamin D3 (Cholecalciferol (Vitamin D3)) 1,000 Unit Tablet 1 Tab PO DAILY Vitamin B-12 (Cyanocobalamin (Vitamin B-12)) 1,000 Mcg Tablet 1 Tab PO DAILY Senna (Sennosides) 8.6 Mg Tablet 8.6 Mg PO PRN DAILY PRN 2 tabs Renvela (Sevelamer Carbonate) 800 Mg Tablet 800 Mg PO TIDWMEALS Renal Caps Softgel (Folic Acid/Vitamin B Comp W-C) 1 Mg Capsule 1 Mg PO DAILY Reglan (Metoclopramide Hcl) 10 Mg Tablet 5 Mg PO TID Probiotic (Lactobacillus Acidophilus) 1 Each Capsule 1 Each PO BID Milk Of Magnesia (Magnesium Hydroxide) 400 Mg/5 Ml Oral.susp 400 Mg PO PRN DAILY PRN Lipitor (Atorvastatin Calcium) 40 Mg Tablet 1 Tab PO QHS Humalog (Insulin Lispro) 100 Unit/1 Ml Insuln.pen 100 Unit SQ TIDBFRMEAL 150-199=1 unit 200-299=2 units 300-399=4 units 100-499=6 units Clopidogrel (Clopidogrel Bisulfate) 75 Mg Tablet 1 Tab PO DAILY Duoneb 0.5-3(2.5) Mg/3 Ml (Albuterol/Ipratropium) 3 Ml Ampul.neb 3 Ml NEB PRN Q4HRS PRN Lac-Hydrin Five (Ammonium Lactate) 226 Gm Lotion 226 Gm TP BID Allopurinol 100 Mg Tablet 1 Tab PO DAILY Tylenol (Acetaminophen) 325 Mg Tablet 1 Tab PO PRN Q4HRS Aspirin 81 Mg Tab.chew 81 Mg PO DAILY Pertinent Labs/Test Laboratory Tests Test 06/30/19 17:52 07/01/19 04:15 07/01/19 05:40 07/01/19 11:22 Glucose (Fingerstick) 180 mg/dL (70-99) 173 mg/dL (70-99) 347 mg/dL (70-99) White Blood Count 8.9 x10^3/uL (4.0-11.0) Red Blood Count 3.10 x10^6/uL (4.30-5.70) Hemoglobin 8.7 g/dL (13.0-17.5) Hematocrit 27.0 % (39.0-53.0) Mean Corpuscular Volume 87 fL (79-100) Mean Corpuscular Hemoglobin 28 pg (25-35) Mean Corpuscular Hemoglobin Concent 32 g/dL (31-37) Red Cell Distribution Width 19.0 % (11.5-14.5) Platelet Count 380 x10^3/uL (140-400) Neutrophils (%) (Auto) 71 % (31-73) Lymphocytes (%) (Auto) 14 % (24-48) Monocytes (%) (Auto) 9 % (0-9) Eosinophils (%) (Auto) 5 % (0-3) Basophils (%) (Auto) 1 % (0-3) Neutrophils # (Auto) 6.3 x10^3/uL (1.8-7.7) Lymphocytes # (Auto) 1.3 x10^3/uL (1.0-4.8) Monocytes # (Auto) 0.8 x10^3/uL (0.0-1.1) Eosinophils # (Auto) 0.4 x10^3/uL (0.0-0.7) Basophils # (Auto) 0.1 x10^3/uL (0.0-0.2) Sodium Level 135 mmol/L (136-145) Potassium Level 3.7 mmol/L (3.5-5.1) Chloride Level 95 mmol/L (98-107) Carbon Dioxide Level 30 mmol/L (21-32) Anion Gap 10 (6-14) Blood Urea Nitrogen 65 mg/dL (8-26) Creatinine 5.2 mg/dL (0.7-1.3) Estimated GFR (Cockcroft-Gault) 13.0 Glucose Level 206 mg/dL (70-99) Calcium Level 9.4 mg/dL (8.5-10.1) Test 07/02/19 02:40 07/02/19 06:13 07/02/19 08:15 07/02/19 12:17 Glucose (Fingerstick) 116 mg/dL (70-99) 125 mg/dL (70-99) 137 mg/dL (70-99) 130 mg/dL (70-99) Laboratory Tests Test 07/02/19 02:40 07/02/19 06:13 07/02/19 08:15 07/02/19 12:17 Glucose (Fingerstick) 116 mg/dL (70-99) 125 mg/dL (70-99) 137 mg/dL (70-99) 130 mg/dL (70-99) LAST VITALS Vital Signs Date Time Temp Pulse Resp B/P (MAP) Pulse Ox O2 Delivery O2 Flow Rate FiO2 07/02/19 13:52 100 Room Air 07/02/19 11:00 97.5 67 22 94/54 (67) 97.5 NASRIN CARTAGENA MD Jul 02, 2019 14:51
[2019-07-02] MEDS ORDERED: LIDOCAINE WITH 8.4% SOD BICARB 3 ML DISP.SYRIN. ONE (15:27)
[2019-07-02 15:43] LABS: PROTHROMBIN TIME PATIENT 17.9 SEC (11.7-14.0)
[2019-07-02] MEDS: VANCOMYCIN PER PHARMACY MC PRN (16:15)
--- NOTE | 2019-07-02 16:21 | PDOC ---
PROGRESS NOTES Subjective Subjective dobhoff and daughter concurs with peg. started on honey thick liquid pureed diet but not eating much. central line placed. will start iv fluids as he is not drinking enough fluids. Objective Objective Vital Signs Date Time Temp Pulse Resp B/P (MAP) Pulse Ox O2 Delivery O2 Flow Rate FiO2 07/02/19 13:52 100 Room Air 07/02/19 11:00 97.5 67 22 94/54 (67) 97.5 Intake and Output 07/02/19 07:00 Intake Total 780 ml Output Total 25 ml Balance 755 ml Intake Oral 280 ml IV Total 200 ml Tube Feeding 300 ml Output Urine Total 25 ml # Bowel Movements 2 Physical Exam Abdomen: Soft Heart: Normal S1, Normal S2 Extremities: Other (bilateral BKA with left BKA stump wound vac) General: Alert HEENT: Atraumatic Lungs: Clear to auscultation Neuro: Normal speech Psych/Mental Status: Mood NL Skin: No rashes Assessment Assessment Problemsmetabolic encephalopathy. better 2. Pyuria, consistent with urinary tract infection. pus in urine. urine culture grew 10-25K yeast 3. Bilateral below-knee amputation. 4. left below-knee amputation stump wound infection 5. Diabetes mellitus type 2. 6. Peripheral arterial disease. 7. End-stage renal disease, on hemodialysis. m-w-f 8. paroxysmal atrial fibrillation. in nsr. not a coumadin candidate. recent hx of retroperitoneal bleed on anticoagulants and fall risk. 9. Severe protein-calorie malnutrition. 10. Anemia of chronic disease. NSTEMI oropharyngeal dysphagia on HTL pureed diet Medical Problems: (1) Altered mental status Status: Acute (2) Anemia in chronic illness Status: Chronic (3) CAD (coronary artery disease) Status: Chronic (4) Chronic a-fib Status: Chronic (5) DM2 (diabetes mellitus, type 2) Status: Chronic (6) ESRD (end stage renal disease) Status: Acute (7) HTN (hypertension) Status: Chronic (8) Metabolic encephalopathy Status: Acute (9) NSTEMI (non-ST elevated myocardial infarction) Status: Acute (10) Paroxysmal A-fib Status: Acute (11) Peripheral artery disease Status: Chronic (12) Severe protein-calorie malnutrition Status: Chronic (13) SSS (sick sinus syndrome) Status: Chronic (14) UTI (urinary tract infection) Status: Acute Plan Plan of Care anticipate PEG saturday start iv fluids hemodialysis tomorrow lab tomorrow wound vac and wound care continue iv vancomycin and zosyn and micafungin Comment Review of Relevant I have reviewed the following items soumya (where applicable) has been applied. Labs Laboratory Tests Test 06/30/19 17:52 07/01/19 04:15 07/01/19 05:40 07/01/19 11:22 Glucose (Fingerstick) 180 mg/dL (70-99) 173 mg/dL (70-99) 347 mg/dL (70-99) White Blood Count 8.9 x10^3/uL (4.0-11.0) Red Blood Count 3.10 x10^6/uL (4.30-5.70) Hemoglobin 8.7 g/dL (13.0-17.5) Hematocrit 27.0 % (39.0-53.0) Mean Corpuscular Volume 87 fL (79-100) Mean Corpuscular Hemoglobin 28 pg (25-35) Mean Corpuscular Hemoglobin Concent 32 g/dL (31-37) Red Cell Distribution Width 19.0 % (11.5-14.5) Platelet Count 380 x10^3/uL (140-400) Neutrophils (%) (Auto) 71 % (31-73) Lymphocytes (%) (Auto) 14 % (24-48) Monocytes (%) (Auto) 9 % (0-9) Eosinophils (%) (Auto) 5 % (0-3) Basophils (%) (Auto) 1 % (0-3) Neutrophils # (Auto) 6.3 x10^3/uL (1.8-7.7) Lymphocytes # (Auto) 1.3 x10^3/uL (1.0-4.8) Monocytes # (Auto) 0.8 x10^3/uL (0.0-1.1) Eosinophils # (Auto) 0.4 x10^3/uL (0.0-0.7) Basophils # (Auto) 0.1 x10^3/uL (0.0-0.2) Sodium Level 135 mmol/L (136-145) Potassium Level 3.7 mmol/L (3.5-5.1) Chloride Level 95 mmol/L (98-107) Carbon Dioxide Level 30 mmol/L (21-32) Anion Gap 10 (6-14) Blood Urea Nitrogen 65 mg/dL (8-26) Creatinine 5.2 mg/dL (0.7-1.3) Estimated GFR (Cockcroft-Gault) 13.0 Glucose Level 206 mg/dL (70-99) Calcium Level 9.4 mg/dL (8.5-10.1) Test 07/02/19 02:40 07/02/19 06:13 07/02/19 08:15 07/02/19 12:17 Glucose (Fingerstick) 116 mg/dL (70-99) 125 mg/dL (70-99) 137 mg/dL (70-99) 130 mg/dL (70-99) Test 07/02/19 15:25 Prothrombin Time 17.9 SEC (11.7-14.0) Prothromb Time International Ratio 1.5 (0.8-1.1) Laboratory Tests Test 07/02/19 02:40 07/02/19 06:13 07/02/19 08:15 07/02/19 12:17 Glucose (Fingerstick) 116 mg/dL (70-99) 125 mg/dL (70-99) 137 mg/dL (70-99) 130 mg/dL (70-99) Test 07/02/19 15:25 Prothrombin Time 17.9 SEC (11.7-14.0) Prothromb Time International Ratio 1.5 (0.8-1.1) Microbiology 06/23/19 Urine Culture - Final, Complete 06/23/19 Urine Culture Result 1 (TEREZA) - Final, Complete 06/22/19 Blood Culture - Final, Complete NO GROWTH AFTER 5 DAYS Medications Current Medications Vancomycin HCl 250 ml @ 250 mls/hr 1X ONCE IV ; Start 06/22/19 at 10:45; Stop 06/22/19 at 11:44; Status UNV Piperacillin Sod/ Tazobactam Sod 2.25 gm/Sodium Chloride 50 ml @ 100 mls/hr 1X ONCE IV Last administered on 06/22/19at 11:55; Start 06/22/19 at 10:45; Stop 06/22/19 at 11:14; Status DC Sodium Chloride 1,000 ml @ 100 mls/hr Q10H IV Last administered on 06/22/19at 11:55; Start 06/22/19 at 10:38; Stop 06/22/19 at 20:37; Status DC Vancomycin HCl 2 gm/Sodium Chloride 500 ml @ 250 mls/hr 1X ONCE IV Last administered on 06/22/19at 12:32; Start 06/22/19 at 11:30; Stop 06/22/19 at 13:29; Status DC Info (PHARMACY MONITORING -- do not chart) 1 each PRN DAILY PRN MC SEE COMMENTS; Start 06/22/19 at 16:30; Stop 06/24/19 at 11:38; Status DC Info (PHARMACY MONITORING -- do not chart) 1 each PRN DAILY PRN MC SEE COMMENTS; Start 06/22/19 at 16:30; Status UNV Sodium Chloride 1,000 ml @ 40 mls/hr Q24H IV Last administered on 06/24/19at 18:31; Start 06/22/19 at 17:30; Stop 06/25/19 at 19:44; Status DC Vancomycin HCl (Vanco Per Pharmacy) 1 each PRN DAILY PRN MC SEE COMMENTS Last administered on 07/02/19at 16:15; Start 06/22/19 at 17:30 Piperacillin Sod/ Tazobactam Sod (Zosyn Per Pharmacy) 1 each PRN DAILY PRN MC SEE COMMENTS; Start 06/22/19 at 17:30 Acetaminophen (Tylenol) 650 mg PRN Q6HRS PRN PO MILD PAIN / TEMP; Start 06/22/19 at 17:30; Stop 06/25/19 at 18:15; Status DC Ondansetron HCl (Zofran) 4 mg PRN Q6HRS PRN IV NAUSEA/VOMITING; Start 06/22/19 at 17:30 Clopidogrel Bisulfate (Plavix) 75 mg DAILYWBKFT PO Last administered on 07/02/19at 10:00; Start 06/23/19 at 08:00; Stop 07/02/19 at 14:26; Status DC Vitamin B Complex/ Vitamin C (Carlos-Moses) 1 tab DAILY PO Last administered on 07/02/19at 10:00; Start 06/23/19 at 09:00 Allopurinol (Zyloprim) 100 mg DAILY PO ; Start 06/23/19 at 09:00; Stop 06/25/19 at 18:17; Status DC Atorvastatin Calcium (Lipitor) 40 mg QHS PO Last administered on 06/22/19at 21:37; Start 06/22/19 at 21:00; Stop 06/25/19 at 12:19; Status DC Pantoprazole Sodium (Protonix) 40 mg DAILYAC PO Last administered on 07/02/19at 10:00; Start 06/23/19 at 07:30 Cyanocobalamin (Vitamin B-12) 1,000 mcg DAILY PO Last administered on 07/02/19at 10:00; Start 06/23/19 at 09:00 Piperacillin Sod/ Tazobactam Sod 2.25 gm/Sodium Chloride 50 ml @ 100 mls/hr Q8HRS IV Last administered on 07/02/19at 06:09; Start 06/22/19 at 21:00 Heparin Sodium (Porcine) (Heparin Sodium) 5,000 unit BID SQ Last administered on 06/22/19at 21:37; Start 06/22/19 at 21:00; Stop 06/23/19 at 08:23; Status DC Insulin Human Lispro (HumaLOG) 0-6 UNITS BG 400-49... TIDWMEALS SQ Last administered on 07/01/19at 12:33; Start 06/23/19 at 08:00 Vancomycin HCl (Vancomycin Random Level) 1 each 1X ONCE MC Last administered on 06/24/19at 06:37; Start 06/24/19 at 06:00; Stop 06/24/19 at 06:01; Status DC Heparin Sodium/ Dextrose 500 ml @ 19.3 mls/hr CONT PRN IV SEE I/O RECORD; Start 06/23/19 at 08:30; Stop 06/23/19 at 14:53; Status DC Heparin Sodium (Porcine) (Heparin Sodium) 2,000 unit PRN Q6HRS PRN IV FOR UFH LEVEL LESS THAN 0.2; Start 06/23/19 at 08:30; Stop 06/23/19 at 14:53; Status DC Aspirin (Ecotrin) 325 mg 1X ONCE PO ; Start 06/23/19 at 10:30; Stop 06/23/19 at 10:31; Status DC Aspirin (Ecotrin) 81 mg DAILYWBKFT PO ; Start 06/24/19 at 08:00; Stop 06/25/19 at 18:16; Status DC Ondansetron HCl (Zofran) 4 mg PRN Q6HRS PRN IV NAUSEA/VOMITING; Start 06/24/19 at 07:00; Stop 06/25/19 at 06:59; Status DC Morphine Sulfate (Morphine Sulfate) 1 mg PRN Q10MIN PRN IV SEVERE PAIN 7-10; Start 06/24/19 at 07:00; Stop 06/24/19 at 10:06; Status DC Ringer's Solution 1,000 ml @ 30 mls/hr Q24H IV ; Start 06/24/19 at 07:00; Stop 06/24/19 at 18:59; Status DC Lidocaine HCl (Xylocaine-Mpf 1% 2ml Vial) 2 ml PRN 1X PRN ID PRIOR TO IV START; Start 06/24/19 at 07:00; Stop 06/25/19 at 06:59; Status DC Hydromorphone HCl (Dilaudid) 0.5 mg PRN Q10MIN PRN IV SEV PAIN, Second choice; Start 06/24/19 at 07:00; Stop 06/24/19 at 10:06; Status DC Info (Anti-Coagulation Monitoring By Pharmacy) 1 each PRN DAILY PRN MC SEE COMMENTS Last administered on 06/30/19at 10:17; Start 06/23/19 at 14:30; Stop 06/30/19 at 10:22; Status DC Enoxaparin Sodium (Lovenox Per Pharmacy Treatment Dosing) 1 each 1X PRN MC SEE COMMENTS; Start 06/23/19 at 14:45; Stop 06/23/19 at 21:00; Status DC Enoxaparin Sodium (Lovenox 80mg Syringe) 80 mg 1X ONCE SQ Last administered on 06/23/19at 15:16; Start 06/23/19 at 15:30; Stop 06/23/19 at 15:31; Status DC Heparin Sodium (Porcine) (Heparin Sodium) 5,000 unit Q12HR SQ Last administered on 07/02/19at 10:00; Start 06/24/19 at 11:00 Acetaminophen (Tylenol Supp) 650 mg PRN Q6HRS PRN [place] MILD PAIN / TEMP Last administered on 06/24/19at 23:03; Start 06/24/19 at 10:30; Stop 06/28/19 at 11:19; Status DC Tramadol HCl (Ultram) 25 mg PRN Q6HRS PRN PO PAIN MODERATE PAIN Last admin istered on 07/02/19at 12:40; Start 06/24/19 at 10:30 Ketorolac Tromethamine (Toradol 15mg Vial) 15 mg PRN Q6HRS PRN IV PAIN Last administered on 06/28/19at 17:19; Start 06/24/19 at 10:30; Stop 06/29/19 at 10:29; Status DC Sodium Chloride 1,000 ml @ 1,000 mls/hr Q1H PRN IV hypotension; Start 06/24/19 at 11:27; Stop 06/24/19 at 17:26; Status DC Sodium Chloride 1,000 ml @ 400 mls/hr Q2H30M PRN IV PATENCY; Start 06/24/19 at 11:27; Stop 06/24/19 at 23:26; Status DC Info (PHARMACY MONITORING -- do not chart) 1 each PRN DAILY PRN MC SEE COMMENTS; Start 06/24/19 at 11:30; Status Cancel Info (PHARMACY MONITORING -- do not chart) 1 each PRN DAILY PRN MC SEE COMMENTS; Start 06/24/19 at 11:30; Status UNV Vancomycin HCl 500 mg/Sodium Chloride 100 ml @ 100 mls/hr QMWF IV Last administered on 07/01/19at 18:48; Start 06/24/19 at 16:00 Dextrose (Dextrose 50%-Water Syringe) 12.5 gm PRN Q15MIN PRN IV SEE COMMENTS Last administered on 06/25/19at 01:41; Start 06/25/19 at 01:30 Dextrose 250 ml PRN Q15MIN PRN IV SEE COMMENTS; Start 06/25/19 at 01:30 Micafungin Sodium 100 mg/Dextrose 100 ml @ 100 mls/hr Q24H IV Last administered on 07/01/19at 10:07; Start 06/25/19 at 09:00 Metoprolol Tartrate (Lopressor Vial) 2.5 mg Q6HRS IVP Last administered on 06/27/19at 17:59; Start 06/25/19 at 18:00; Stop 06/28/19 at 11:19; Status DC Atorvastatin Calcium (Lipitor) 10 mg QHS PEG Last administered on 07/01/19at 21:48; Start 06/25/19 at 21:00 Ondansetron HCl (Zofran) 4 mg PRN Q6HRS PRN IV NAUSEA/VOMITING; Start 06/26/19 at 07:00; Stop 06/27/19 at 06:59; Status DC Morphine Sulfate (Morphine Sulfate) 1 mg PRN Q10MIN PRN IV SEVERE PAIN 7-10; Start 06/26/19 at 07:00; Stop 06/27/19 at 06:59; Status DC Ringer's Solution 1,000 ml @ 30 mls/hr Q24H IV ; Start 06/26/19 at 07:00; Stop 06/26/19 at 18:59; Status DC Lidocaine HCl (Xylocaine-Mpf 1% 2ml Vial) 2 ml PRN 1X PRN ID PRIOR TO IV START; Start 06/26/19 at 07:00; Stop 06/27/19 at 06:59; Status DC Hydromorphone HCl (Dilaudid) 0.5 mg PRN Q10MIN PRN IV SEV PAIN, Second choice; Start 06/26/19 at 07:00; Stop 06/27/19 at 06:59; Status DC Acetaminophen (Tylenol) 650 mg PRN Q6HRS PRN PEG MILD PAIN / TEMP Last administered on 07/01/19at 21:48; Start 06/25/19 at 18:15 Aspirin (Children'S Aspirin) 81 mg DAILYWBKFT PEG Last administered on 07/02/19at 10:00; Start 06/26/19 at 08:00 Allopurinol (Zyloprim) 100 mg DAILY PEG Last administered on 07/02/19at 10:00; Start 06/25/19 at 18:17 Quetiapine Fumarate (SEROquel) 12.5 mg PRN Q8HRS PRN PO PSYCHOTIC BEHAVIOR Last administered on 06/28/19at 20:07; Start 06/25/19 at 19:45 Vitamin A/Vitamin D (Vitamin A & D Ointment) 1 héctor PRN BID PRN TP SKIN PROTECTION Last administered on 07/02/19at 10:00; Start 06/26/19 at 06:00 Sodium Chloride 1,000 ml @ 1,000 mls/hr Q1H PRN IV hypotension; Start 06/26/19 at 12:41; Stop 06/26/19 at 18:40; Status DC Info (PHARMACY MONITORING -- do not chart) 1 each PRN DAILY PRN MC SEE COMMENTS; Start 06/26/19 at 12:45; Status UNV Info (PHARMACY MONITORING -- do not chart) 1 each PRN DAILY PRN MC SEE COMMENTS; Start 06/26/19 at 12:45; Status Cancel Sodium Chloride 1,000 ml @ 1,000 mls/hr Q1H PRN IV hypotension; Start 06/29/19 at 12:00; Stop 06/29/19 at 17:59; Status DC Sodium Chloride 1,000 ml @ 400 mls/hr Q2H30M PRN IV PATENCY; Start 06/29/19 at 12:00; Stop 06/29/19 at 23:59; Status DC Info (PHARMACY MONITORING -- do not chart) 1 each PRN DAILY PRN MC SEE COMMENTS; Start 06/29/19 at 16:00; Status UNV Info (PHARMACY MONITORING -- do not chart) 1 each PRN DAILY PRN MC SEE COMMENTS; Start 06/29/19 at 16:00; Status Cancel Info (PHARMACY MONITORING -- do not chart) 1 each PRN DAILY PRN MC SEE COMMENTS; Start 07/01/19 at 14:00; Status UNV Info (PHARMACY MONITORING -- do not chart) 1 each PRN DAILY PRN MC SEE COMMENTS; Start 07/01/19 at 14:00 Darbepoetin Chito (ARANESP for DIALYSIS PTS) 60 mcg WEEKLYHS SQ Last administered on 07/01/19at 21:48; Start 07/01/19 at 21:00 Vancomycin HCl (Vancomycin Random Level) 1 each 1X ONCE MC ; Start 07/03/19 at 06:00; Stop 07/03/19 at 06:01 Lidocaine/Sodium Bicarbonate (Buffered Lidocaine 1%) 3 ml STK-MED ONCE .ROUTE ; Start 07/02/19 at 15:27; Stop 07/02/19 at 15:28; Status DC Active Scripts Active Bradford 5-325 Tablet (Acetaminophen/Hydrocodone Bitart) 1 Each Tablet 0.5 Tab PO Q4HRS Zyvox (Linezolid) 600 Mg Tablet 600 Mg PO BID 4 Days Amox Tr-K Clv 500-125 Mg Tab (Amoxicillin/Potassium Clav) 1 Each Tablet 1 Tab PO DAILY 4 Days Tramadol Hcl 50 Mg Tablet 50 Mg PO PRN Q6HRS PRN Ondansetron Odt (Ondansetron) 4 Mg Tab.rapdis 4 Mg PO Q6HRS PRN Humalog (Insulin Lispro) 100 Unit/1 Ml Insuln.pen 0 Units SQ TIDWMEALS 30 Days BG 150-199= 1 units 200-299= 2 units 300-399= 4 units 400-499= 6 units ac tid sliding scale Reported Omeprazole 20 Mg Tablet.dr 1 Tab PO DAILY Vitamin D3 (Cholecalciferol (Vitamin D3)) 1,000 Unit Tablet 1 Tab PO DAILY Vitamin B-12 (Cyanocobalamin (Vitamin B-12)) 1,000 Mcg Tablet 1 Tab PO DAILY Senna (Sennosides) 8.6 Mg Tablet 8.6 Mg PO PRN DAILY PRN 2 tabs Renvela (Sevelamer Carbonate) 800 Mg Tablet 800 Mg PO TIDWMEALS Renal Caps Softgel (Folic Acid/Vitamin B Comp W-C) 1 Mg Capsule 1 Mg PO DAILY Reglan (Metoclopramide Hcl) 10 Mg Tablet 5 Mg PO TID Probiotic (Lactobacillus Acidophilus) 1 Each Capsule 1 Each PO BID Milk Of Magnesia (Magnesium Hydroxide) 400 Mg/5 Ml Oral.susp 400 Mg PO PRN DAILY PRN Lipitor (Atorvastatin Calcium) 40 Mg Tablet 1 Tab PO QHS Humalog (Insulin Lispro) 100 Unit/1 Ml Insuln.pen 100 Unit SQ TIDBFRMEAL 150-199=1 unit 200-299=2 units 300-399=4 units 100-499=6 units Clopidogrel (Clopidogrel Bisulfate) 75 Mg Tablet 1 Tab PO DAILY Duoneb 0.5-3(2.5) Mg/3 Ml (Albuterol/Ipratropium) 3 Ml Ampul.neb 3 Ml NEB PRN Q4HRS PRN Lac-Hydrin Five (Ammonium Lactate) 226 Gm Lotion 226 Gm TP BID Allopurinol 100 Mg Tablet 1 Tab PO DAILY Tylenol (Acetaminophen) 325 Mg Tablet 1 Tab PO PRN Q4HRS Aspirin 81 Mg Tab.chew 81 Mg PO DAILY Vitals/I & O Vital Sign - Last 24 Hours 07/01/19 07/01/19 07/01/19 07/02/19 19:00 20:00 23:00 02:55 Temp 98.0 97.6 97.3 98.0 97.6 97.3 Pulse 82 74 77 Resp B/P (MAP) 126/59 (81) 117/58 (77) 93/55 (68) Pulse Ox 94 94 96 O2 Delivery Room Air Room Air Room Air Room Air 07/02/19 07/02/19 07/02/19 07/02/19 07:00 08:00 11:00 12:40 Temp 97.6 97.5 97.6 97.5 Pulse 68 67 Resp B/P (MAP) 131/69 (89) 94/54 (67) Pulse Ox 98 100 100 O2 Delivery Room Air Room Air Room Air Room Air 07/02/19 13:52 Pulse Ox 100 O2 Delivery Room Air Intake and Output 07/01/19 07/01/19 07/02/19 15:00 23:00 07:00 Intake Total 730 ml 50 ml 0 ml Output Total 25 ml Balance 730 ml 50 ml -25 ml Nutrition Consultation Dietary Evaluation: Recommendations by RD: Increase Calorie Intake, Protein supplementation Comments: Continue w/Nepro@goal rate 40 ml/hr w/150 ml water flushes q6 hrs per MD Continue w/Marcell BID and carlos-moses for wound healing Continue w/dysphagia I diet w/honey thick liquids per [employer] 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
--- NOTE | 2019-07-02 16:28 | RAD ---
07/02/2019 2:23 PM Fluoroscopically guided repositioning of right internal jugular central line Clinical Indication: residential antibiotic, chronic wound, poor access, malpositioned central line Discussion: All elements of maximal sterile barrier technique including the use of a cap, mask, sterile gown, sterile gloves, large sterile sheet, appropriate hand hygiene, and 2% chlorhexidine for cutaneous antisepsis (or acceptable alternative antiseptic per current guidelines) were followed for this procedure. Under fluoroscopic guidance the pre-existing right internal jugular central line was advanced over a Glidewire into the cavoatrial junction. The line was secured in place. Sterile dressings were applied. Total fluoroscopy time: 0.5 min Dose area product: 2.8 Gycm2 Impression: Right internal jugular central line was repositioned without issue
[2019-07-02 16:38] VITALS: BP 104/55
[2019-07-02] MEDS: IV DEXTROSE 5 %-0.45 % NACL 1,000 ML IV SCH (16:39)
[2019-07-02] MEDS: MICAFUNGIN 100 MG in IV DEXTROSE 5% 100ML 100 ML IV SCH (16:45)
[2019-07-02 19:12] VITALS: BP 125/61
[2019-07-02] MEDS: ACETAMINOPHEN 650 MG/20.3 ML SOLUTION. PEG PRN (20:45)
[2019-07-02 22:08] VITALS: BP 103/56
[2019-07-03 02:47] VITALS: BP 120/73
[2019-07-03] MEDS: PIPERACILLIN/TAZOBACTAM 2.25 GM in IV NORMAL SALINE 50ML 50 ML IV SCH ×3 (05:59→21:31)
[2019-07-03] MEDS ORDERED: VANCOMYCIN RANDOM LEVEL. MC ONE (06:00)
[2019-07-03 06:12] LABS: BASO # 0.1 x10^3/uL (0.0-0.2); BASO % 1 % (0-3); EOS # 0.4 x10^3/uL (0.0-0.7); EOS % 5 % (0-3); HEMATOCRIT 27.9 % (39.0-53.0); HEMOGLOBIN 9.1 g/dL (13.0-17.5); LYMPH # 1.4 x10^3/uL (1.0-4.8); LYMPH % 16 % (24-48); MEAN CORPUSCULAR HEMOGLOBIN 28 pg (25-35); MEAN CORPUSCULAR HGB CONC 33 g/dL (31-37); MEAN CORPUSCULAR VOLUME 87 fL (79-100); MONO % 11 % (0-9); NEUT # 5.9 x10^3/uL (1.8-7.7); NEUT % 67 % (31-73); PLATELET COUNT 389 x10^3/uL (140-400); RED CELL DISTRIBUTION WIDTH 18.7 % (11.5-14.5); WHITE BLOOD COUNT 8.9 x10^3/uL (4.0-11.0)
[2019-07-03 07:00] VITALS: BP 129/60
[2019-07-03 07:01] LABS: CALCIUM 9.5 mg/dL (8.5-10.1); CREATININE 4.7 mg/dL (0.7-1.3); GFR 14.7; POTASSIUM 4.5 mmol/L (3.5-5.1)
[2019-07-03] MEDS ORDERED: IV NORMAL SALINE 1000ML BAG 1,000 ML IV PRN ×2 (07:18)
[2019-07-03] MEDS ORDERED: ACETAMINOPHEN 500 MG TABLET PO PRN (07:30)
[2019-07-03] MEDS ORDERED: diphenhydrAMINE 50 MG/ML VIAL IV PRN ×2 (07:30)
[2019-07-03] MEDS ORDERED: DIALYSIS PATIENT. MC PRN ×2 (07:30)
[2019-07-03] MEDS ORDERED: ALBUMIN HUMAN 25% 200 ML IV PRN (07:30)
--- NOTE | 2019-07-03 07:48 | PDOC ---
Infectious Disease Note Subjective Subjective Awakened denied Pain/Fever/Nausea d/w rn ROS ROS o/w neg Vital Sign Vital Signs Vital Signs Date Time Temp Pulse Resp B/P (MAP) Pulse Ox O2 Delivery O2 Flow Rate FiO2 07/03/19 02:47 98.1 66 16 120/73 (89) 95 Room Air 98.1 Physical Exam PHYSICAL EXAM GENERAL: More alert - .appears comfortable. HEENT - No icterus. no thrush, oral mucosa dry NECK: Supple. RIJ clean (07/02) HEART: S1, S2. LUNGS: Clear bilaterally. ABDOMEN: Soft, nontender, obese. Bowel sounds present. yeast in groin EXTREMITIES: Right below knee amputation, scar healthy, left lower extremity amputation stump has a wound vac. Right upper extremity AV fistula site looks okay. 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 Labs Lab Laboratory Tests Test 07/02/19 08:15 07/02/19 12:17 07/02/19 15:25 07/02/19 16:49 Glucose (Fingerstick) 137 mg/dL (70-99) 130 mg/dL (70-99) 112 mg/dL (70-99) Prothrombin Time 17.9 SEC (11.7-14.0) Prothromb Time International Ratio 1.5 (0.8-1.1) Test 07/02/19 20:38 07/03/19 05:45 Glucose (Fingerstick) 130 mg/dL (70-99) White Blood Count 8.9 x10^3/uL (4.0-11.0) Red Blood Count 3.20 x10^6/uL (4.30-5.70) Hemoglobin 9.1 g/dL (13.0-17.5) Hematocrit 27.9 % (39.0-53.0) Mean Corpuscular Volume 87 fL (79-100) Mean Corpuscular Hemoglobin 28 pg (25-35) Mean Corpuscular Hemoglobin Concent 33 g/dL (31-37) Red Cell Distribution Width 18.7 % (11.5-14.5) Platelet Count 389 x10^3/uL (140-400) Neutrophils (%) (Auto) 67 % (31-73) Lymphocytes (%) (Auto) 16 % (24-48) Monocytes (%) (Auto) 11 % (0-9) Eosinophils (%) (Auto) 5 % (0-3) Basophils (%) (Auto) 1 % (0-3) Neutrophils # (Auto) 5.9 x10^3/uL (1.8-7.7) Lymphocytes # (Auto) 1.4 x10^3/uL (1.0-4.8) Monocytes # (Auto) 1.0 x10^3/uL (0.0-1.1) Eosinophils # (Auto) 0.4 x10^3/uL (0.0-0.7) Basophils # (Auto) 0.1 x10^3/uL (0.0-0.2) Sodium Level 137 mmol/L (136-145) Potassium Level 4.5 mmol/L (3.5-5.1) Chloride Level 98 mmol/L (98-107) Carbon Dioxide Level 28 mmol/L (21-32) Anion Gap 11 (6-14) Blood Urea Nitrogen 38 mg/dL (8-26) Creatinine 4.7 mg/dL (0.7-1.3) Estimated GFR (Cockcroft-Gault) 14.7 Glucose Level 130 mg/dL (70-99) Calcium Level 9.5 mg/dL (8.5-10.1) Random Vancomycin Level 19.5 mcg/mL Micro Microbiology 06/23/19 Urine Culture - Final, Complete 06/23/19 Urine Culture Result 1 (TEREZA) - Final, Complete 06/22/19 Blood Culture - Final, Complete NO GROWTH AFTER 5 DAYS Objective Assessment 1. Urinary tract infection. No leukocyte esterase or nitrite done. Not done again on repeat UA 06/24. urine had pus like appearance when allan placement was attempted, yeast on uc likely colonization allan now in place - cults neg 2. Altered mental status, likely multifactorial. CT head negative. 3. 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 End-stage renal disease, on hemodialysis. 5. Low-grade fevers. 6. leukocytosis - improved - C-diff neg 7. Anemia of chronic disease. 8. Severe protein-calorie malnutrition per speech no aspiration but slow to swallow and not able to maintain adequate po 9. Chronic atrial fibrillation. 10. High troponin with working diagnosis of non-STEMI. 11. Chronic sacral wound, superficial. 12. Yeast in groin 13. Dysphagia on ngt Plan Plan of Care - Continue Vanc,Zosyn, renal dosing - D/w micafungin soon - f/u c/s and labs in am - CBC and sed rate -Wound care per vascular - await f/u - Continue local wound care. - Continue supportive care. - nutrition per Primary ? need for PEG being evaluated - palliative consulted - aggressive measures continuing Discussed with RN. ABIODUN BAPTISTE MD Jul 03, 2019 07:48
[2019-07-03] MEDS: INSULIN LISPRO 300 UNITS/3 ML VIAL. SQ SCH ×3 (08:00→17:00)
--- NOTE | 2019-07-03 08:42 | RAD ---
EXAM: AP View of the chest DATE: 07/02/2019 2:11 PM INDICATION: Central line position COMPARISON: 06/22/2019 FINDINGS: Right subclavian and upper extremity stent is seen. Right neck vascular catheter courses medial toward the left brachiocephalic vein. Cardiac generator pack obscures a portion of the left chest with single lead in stable position. Mediastinal and hilar contours are stable. Stable moderate cardiomegaly. Atherosclerotic calcifications of the tortuous aorta are seen. No focal parenchymal airspace opacity. No pleural effusion or pneumothorax. IMPRESSION: Interval placement of right IJ catheter, coursing medially into the left brachiocephalic vein, abnormal and should be repositioned. Of note, subsequent fluoroscopic imaging from 07/02/2019, 3:51 PM demonstrates appropriate positioning of this right IJ catheter. Electronically signed by: Abel Christensen MD (07/03/2019 8:39 AM) [facility]
--- NOTE | 2019-07-03 08:47 | PDOC ---
Provider Note Provider Note Vascular S: Patient resting in bed. Limited verbal communication from patient. Does respond to verbal stimulation. O: Awake, but drowsy - responds to verbal stimulation. Responds to pain (with vac change) VSS, afebrile Left BKA wound vac removed. Wound bed with about 50/50 pink granulation tissue/fatty tissue, small area posterior wound very close to the bone, no bogginess or fluctuance. Posterior-distal wound edges are floating with slough underneath. No exposed bone. Medial sutures removed, left tag with inability to dig to find lateral suture at the time. A/P: 78-year-old male with peripheral arterial disease and left below knee amputation site wound Showed picture of wound to Dr. Ceja. Recommend continued veraflo vac therapy over the weekend and continue antibiotics, we will check wound again on Saturday and make decision if further debridement will be pursued at that time. Family was not present on exam today. LINNEA MCCANN Jul 03, 2019 08:47
--- NOTE | 2019-07-03 10:20 | PDOC ---
PROGRESS NOTES Assessment Problems Medical Problems: (1) Altered mental status Status: Acute (2) Anemia in chronic illness Status: Chronic (3) CAD (coronary artery disease) Status: Chronic (4) Chronic a-fib Status: Chronic (5) DM2 (diabetes mellitus, type 2) Status: Chronic (6) ESRD (end stage renal disease) Status: Acute (7) HTN (hypertension) Status: Chronic (8) Metabolic encephalopathy Status: Acute (9) NSTEMI (non-ST elevated myocardial infarction) Status: Acute (10) Paroxysmal A-fib Status: Acute (11) Peripheral artery disease Status: Chronic (12) Severe protein-calorie malnutrition Status: Chronic (13) SSS (sick sinus syndrome) Status: Chronic (14) UTI (urinary tract infection) Status: Acute Metabolic encephalopathy with probable underlying dementia, related to urinary tract infection and leg wounds, no evidence of primary central nervous system infection, new stroke, or ongoing seizure activity. Has NSTEMI. MRI negative for acute stroke. He is declining Note that he has elevated troponin and ESR Dysphagia improved, but still has [place]obb[place], note plans for PEG Plan Treat medical diseases No additional neurological studies needed. Subjective He denies pain Objective Vital Signs Date Time Temp Pulse Resp B/P (MAP) Pulse Ox O2 Delivery O2 Flow Rate FiO2 07/03/19 07:00 98.7 62 16 129/60 (83) 92 Room Air 98.7 Intake and Output 07/03/19 06:59 Intake Total 240 ml Output Total 50 ml Balance 190 ml Intake Oral 240 ml Output Urine Total 50 ml # Bowel Movements 1 PHYSICAL EXAM Alert, follows commands,oriented to person, knows location, not date PERRL. EOMI. CN: no focal findings. Muscle tone: normal. Muscle strength: 4/5 DTR: 0-1+ Plantar reflex: Bilateral below the knee amputations Gait: not examined in bed. Sensory exam: no abnormal findings. No cerebellar signs elicited. Review of Relevant I have reviewed the following items soumya (where applicable) has been applied. Labs Laboratory Tests Test 07/01/19 11:22 07/02/19 02:40 07/02/19 06:13 07/02/19 08:15 Glucose (Fingerstick) 347 mg/dL (70-99) 116 mg/dL (70-99) 125 mg/dL (70-99) 137 mg/dL (70-99) Test 07/02/19 12:17 07/02/19 15:25 07/02/19 16:49 07/02/19 20:38 Glucose (Fingerstick) 130 mg/dL (70-99) 112 mg/dL (70-99) 130 mg/dL (70-99) Prothrombin Time 17.9 SEC (11.7-14.0) Prothromb Time International Ratio 1.5 (0.8-1.1) Test 07/03/19 05:45 07/03/19 07:34 White Blood Count 8.9 x10^3/uL (4.0-11.0) Red Blood Count 3.20 x10^6/uL (4.30-5.70) Hemoglobin 9.1 g/dL (13.0-17.5) Hematocrit 27.9 % (39.0-53.0) Mean Corpuscular Volume 87 fL (79-100) Mean Corpuscular Hemoglobin 28 pg (25-35) Mean Corpuscular Hemoglobin Concent 33 g/dL (31-37) Red Cell Distribution Width 18.7 % (11.5-14.5) Platelet Count 389 x10^3/uL (140-400) Neutrophils (%) (Auto) 67 % (31-73) Lymphocytes (%) (Auto) 16 % (24-48) Monocytes (%) (Auto) 11 % (0-9) Eosinophils (%) (Auto) 5 % (0-3) Basophils (%) (Auto) 1 % (0-3) Neutrophils # (Auto) 5.9 x10^3/uL (1.8-7.7) Lymphocytes # (Auto) 1.4 x10^3/uL (1.0-4.8) Monocytes # (Auto) 1.0 x10^3/uL (0.0-1.1) Eosinophils # (Auto) 0.4 x10^3/uL (0.0-0.7) Basophils # (Auto) 0.1 x10^3/uL (0.0-0.2) Erythrocyte Sedimentation Rate > 130 (0-15) Sodium Level 137 mmol/L (136-145) Potassium Level 4.5 mmol/L (3.5-5.1) Chloride Level 98 mmol/L (98-107) Carbon Dioxide Level 28 mmol/L (21-32) Anion Gap 11 (6-14) Blood Urea Nitrogen 38 mg/dL (8-26) Creatinine 4.7 mg/dL (0.7-1.3) Estimated GFR (Cockcroft-Gault) 14.7 Glucose Level 130 mg/dL (70-99) Calcium Level 9.5 mg/dL (8.5-10.1) Random Vancomycin Level 19.5 mcg/mL Glucose (Fingerstick) 109 mg/dL (70-99) Laboratory Tests Test 07/02/19 12:17 07/02/19 15:25 07/02/19 16:49 07/02/19 20:38 Glucose (Fingerstick) 130 mg/dL (70-99) 112 mg/dL (70-99) 130 mg/dL (70-99) Prothrombin Time 17.9 SEC (11.7-14.0) Prothromb Time International Ratio 1.5 (0.8-1.1) Test 07/03/19 05:45 07/03/19 07:34 White Blood Count 8.9 x10^3/uL (4.0-11.0) Red Blood Count 3.20 x10^6/uL (4.30-5.70) Hemoglobin 9.1 g/dL (13.0-17.5) Hematocrit 27.9 % (39.0-53.0) Mean Corpuscular Volume 87 fL (79-100) Mean Corpuscular Hemoglobin 28 pg (25-35) Mean Corpuscular Hemoglobin Concent 33 g/dL (31-37) Red Cell Distribution Width 18.7 % (11.5-14.5) Platelet Count 389 x10^3/uL (140-400) Neutrophils (%) (Auto) 67 % (31-73) Lymphocytes (%) (Auto) 16 % (24-48) Monocytes (%) (Auto) 11 % (0-9) Eosinophils (%) (Auto) 5 % (0-3) Basophils (%) (Auto) 1 % (0-3) Neutrophils # (Auto) 5.9 x10^3/uL (1.8-7.7) Lymphocytes # (Auto) 1.4 x10^3/uL (1.0-4.8) Monocytes # (Auto) 1.0 x10^3/uL (0.0-1.1) Eosinophils # (Auto) 0.4 x10^3/uL (0.0-0.7) Basophils # (Auto) 0.1 x10^3/uL (0.0-0.2) Erythrocyte Sedimentation Rate > 130 (0-15) Sodium Level 137 mmol/L (136-145) Potassium Level 4.5 mmol/L (3.5-5.1) Chloride Level 98 mmol/L (98-107) Carbon Dioxide Level 28 mmol/L (21-32) Anion Gap 11 (6-14) Blood Urea Nitrogen 38 mg/dL (8-26) Creatinine 4.7 mg/dL (0.7-1.3) Estimated GFR (Cockcroft-Gault) 14.7 Glucose Level 130 mg/dL (70-99) Calcium Level 9.5 mg/dL (8.5-10.1) Random Vancomycin Level 19.5 mcg/mL Glucose (Fingerstick) 109 mg/dL (70-99) Microbiology 06/23/19 Urine Culture - Final, Complete 06/23/19 Urine Culture Result 1 (TEREZA) - Final, Complete 06/22/19 Blood Culture - Final, Complete NO GROWTH AFTER 5 DAYS Medications Current Medications Vancomycin HCl 250 ml @ 250 mls/hr 1X ONCE IV ; Start 06/22/19 at 10:45; Stop 06/22/19 at 11:44; Status UNV Piperacillin Sod/ Tazobactam Sod 2.25 gm/Sodium Chloride 50 ml @ 100 mls/hr 1X ONCE IV Last administered on 06/22/19at 11:55; Start 06/22/19 at 10:45; Stop 06/22/19 at 11:14; Status DC Sodium Chloride 1,000 ml @ 100 mls/hr Q10H IV Last administered on 06/22/19at 11:55; Start 06/22/19 at 10:38; Stop 06/22/19 at 20:37; Status DC Vancomycin HCl 2 gm/Sodium Chloride 500 ml @ 250 mls/hr 1X ONCE IV Last administered on 06/22/19at 12:32; Start 06/22/19 at 11:30; Stop 06/22/19 at 13:29; Status DC Info (PHARMACY MONITORING -- do not chart) 1 each PRN DAILY PRN MC SEE COMMENTS; Start 06/22/19 at 16:30; Stop 06/24/19 at 11:38; Status DC Info (PHARMACY MONITORING -- do not chart) 1 each PRN DAILY PRN MC SEE COMMENTS; Start 06/22/19 at 16:30; Status UNV Sodium Chloride 1,000 ml @ 40 mls/hr Q24H IV Last administered on 06/24/19at 18:31; Start 06/22/19 at 17:30; Stop 06/25/19 at 19:44; Status DC Vancomycin HCl (Vanco Per Pharmacy) 1 each PRN DAILY PRN MC SEE COMMENTS Last administered on 07/02/19at 16:15; Start 06/22/19 at 17:30 Piperacillin Sod/ Tazobactam Sod (Zosyn Per Pharmacy) 1 each PRN DAILY PRN MC SEE COMMENTS; Start 06/22/19 at 17:30 Acetaminophen (Tylenol) 650 mg PRN Q6HRS PRN PO MILD PAIN / TEMP; Start 06/22/19 at 17:30; Stop 06/25/19 at 18:15; Status DC Ondansetron HCl (Zofran) 4 mg PRN Q6HRS PRN IV NAUSEA/VOMITING; Start 06/22/19 at 17:30 Clopidogrel Bisulfate (Plavix) 75 mg DAILYWBKFT PO Last administered on 07/02/19at 10:00; Start 06/23/19 at 08:00; Stop 07/02/19 at 14:26; Status DC Vitamin B Complex/ Vitamin C (Rosalie-Judah) 1 tab DAILY PO Last administered on 07/02/19at 10:00; Start 06/23/19 at 09:00 Allopurinol (Zyloprim) 100 mg DAILY PO ; Start 06/23/19 at 09:00; Stop 06/25/19 at 18:17; Status DC Atorvastatin Calcium (Lipitor) 40 mg QHS PO Last administered on 06/22/19at 21:37; Start 06/22/19 at 21:00; Stop 06/25/19 at 12:19; Status DC Pantoprazole Sodium (Protonix) 40 mg DAILYAC PO Last administered on 07/02/19at 10:00; Start 06/23/19 at 07:30 Cyanocobalamin (Vitamin B-12) 1,000 mcg DAILY PO Last administered on 07/02/19at 10:00; Start 06/23/19 at 09:00 Piperacillin Sod/ Tazobactam Sod 2.25 gm/Sodium Chloride 50 ml @ 100 mls/hr Q8HRS IV Last administered on 07/03/19at 05:59; Start 06/22/19 at 21:00 Heparin Sodium (Porcine) (Heparin Sodium) 5,000 unit BID SQ Last administered on 06/22/19at 21:37; Start 06/22/19 at 21:00; Stop 06/23/19 at 08:23; Status DC Insulin Human Lispro (HumaLOG) 0-6 UNITS BG 400-49... TIDWMEALS SQ Last administered on 07/01/19at 12:33; Start 06/23/19 at 08:00 Vancomycin HCl (Vancomycin Random Level) 1 each 1X ONCE MC Last administered on 06/24/19at 06:37; Start 06/24/19 at 06:00; Stop 06/24/19 at 06:01; Status DC Heparin Sodium/ Dextrose 500 ml @ 19.3 mls/hr CONT PRN IV SEE I/O RECORD; Start 06/23/19 at 08:30; Stop 06/23/19 at 14:53; Status DC Heparin Sodium (Porcine) (Heparin Sodium) 2,000 unit PRN Q6HRS PRN IV FOR UFH LEVEL LESS THAN 0.2; Start 06/23/19 at 08:30; Stop 06/23/19 at 14:53; Status DC Aspirin (Ecotrin) 325 mg 1X ONCE PO ; Start 06/23/19 at 10:30; Stop 06/23/19 at 10:31; Status DC Aspirin (Ecotrin) 81 mg DAILYWBKFT PO ; Start 06/24/19 at 08:00; Stop 06/25/19 at 18:16; Status DC Ondansetron HCl (Zofran) 4 mg PRN Q6HRS PRN IV NAUSEA/VOMITING; Start 06/24/19 at 07:00; Stop 06/25/19 at 06:59; Status DC Morphine Sulfate (Morphine Sulfate) 1 mg PRN Q10MIN PRN IV SEVERE PAIN 7-10; Start 06/24/19 at 07:00; Stop 06/24/19 at 10:06; Status DC Ringer's Solution 1,000 ml @ 30 mls/hr Q24H IV ; Start 06/24/19 at 07:00; Stop 06/24/19 at 18:59; Status DC Lidocaine HCl (Xylocaine-Mpf 1% 2ml Vial) 2 ml PRN 1X PRN ID PRIOR TO IV START; Start 06/24/19 at 07:00; Stop 06/25/19 at 06:59; Status DC Hydromorphone HCl (Dilaudid) 0.5 mg PRN Q10MIN PRN IV SEV PAIN, Second choice; Start 06/24/19 at 07:00; Stop 06/24/19 at 10:06; Status DC Info (Anti-Coagulation Monitoring By Pharmacy) 1 each PRN DAILY PRN MC SEE COMMENTS Last administered on 06/30/19at 10:17; Start 06/23/19 at 14:30; Stop 06/30/19 at 10:22; Status DC Enoxaparin Sodium (Lovenox Per Pharmacy Treatment Dosing) 1 each 1X PRN MC SEE COMMENTS; Start 06/23/19 at 14:45; Stop 06/23/19 at 21:00; Status DC Enoxaparin Sodium (Lovenox 80mg Syringe) 80 mg 1X ONCE SQ Last administered on 06/23/19at 15:16; Start 06/23/19 at 15:30; Stop 06/23/19 at 15:31; Status DC Heparin Sodium (Porcine) (Heparin Sodium) 5,000 unit Q12HR SQ Last administered on 07/02/19at 21:00; Start 06/24/19 at 11:00 Acetaminophen (Tylenol Supp) 650 mg PRN Q6HRS PRN MI MILD PAIN / TEMP Last administered on 06/24/19at 23:03; Start 06/24/19 at 10:30; Stop 06/28/19 at 11:19; Status DC Tramadol HCl (Ultram) 25 mg PRN Q6HRS PRN PO PAIN MODERATE PAIN Last administered on 07/02/19at 12:40; Start 06/24/19 at 10:30 Ketorolac Tromethamine (Toradol 15mg Vial) 15 mg PRN Q6HRS PRN IV PAIN Last administered on 06/28/19at 17:19; Start 06/24/19 at 10:30; Stop 06/29/19 at 10 :29; Status DC Sodium Chloride 1,000 ml @ 1,000 mls/hr Q1H PRN IV hypotension; Start 06/24/19 at 11:27; Stop 06/24/19 at 17:26; Status DC Sodium Chloride 1,000 ml @ 400 mls/hr Q2H30M PRN IV PATENCY; Start 06/24/19 at 11:27; Stop 06/24/19 at 23:26; Status DC Info (PHARMACY MONITORING -- do not chart) 1 each PRN DAILY PRN MC SEE COMMENTS; Start 06/24/19 at 11:30; Status Cancel Info (PHARMACY MONITORING -- do not chart) 1 each PRN DAILY PRN MC SEE COMMENTS; Start 06/24/19 at 11:30; Status UNV Vancomycin HCl 500 mg/Sodium Chloride 100 ml @ 100 mls/hr QMWF IV Last administered on 07/01/19at 18:48; Start 06/24/19 at 16:00 Dextrose (Dextrose 50%-Water Syringe) 12.5 gm PRN Q15MIN PRN IV SEE COMMENTS Last administered on 06/25/19at 01:41; Start 06/25/19 at 01:30 Dextrose 250 ml PRN Q15MIN PRN IV SEE COMMENTS; Start 06/25/19 at 01:30 Micafungin Sodium 100 mg/Dextrose 100 ml @ 100 mls/hr Q24H IV Last administered on 07/02/19at 16:45; Start 06/25/19 at 09:00; Stop 07/03/19 at 08:21; Status DC Metoprolol Tartrate (Lopressor Vial) 2.5 mg Q6HRS IVP Last administered on 06/27/19at 17:59; Start 06/25/19 at 18:00; Stop 06/28/19 at 11:19; Status DC Atorvastatin Calcium (Lipitor) 10 mg QHS PEG Last administered on 07/01/19at 21:48; Start 06/25/19 at 21:00 Ondansetron HCl (Zofran) 4 mg PRN Q6HRS PRN IV NAUSEA/VOMITING; Start 06/26/19 at 07:00; Stop 06/27/19 at 06:59; Status DC Morphine Sulfate (Morphine Sulfate) 1 mg PRN Q10MIN PRN IV SEVERE PAIN 7-10; Start 06/26/19 at 07:00; Stop 06/27/19 at 06:59; Status DC Ringer's Solution 1,000 ml @ 30 mls/hr Q24H IV ; Start 06/26/19 at 07:00; Stop 06/26/19 at 18:59; Status DC Lidocaine HCl (Xylocaine-Mpf 1% 2ml Vial) 2 ml PRN 1X PRN ID PRIOR TO IV START; Start 06/26/19 at 07:00; Stop 06/27/19 at 06:59; Status DC Hydromorphone HCl (Dilaudid) 0.5 mg PRN Q10MIN PRN IV SEV PAIN, Second choice; Start 06/26/19 at 07:00; Stop 06/27/19 at 06:59; Status DC Acetaminophen (Tylenol) 650 mg PRN Q6HRS PRN PEG MILD PAIN / TEMP Last administered on 07/02/19at 21:00; Start 06/25/19 at 18:15 Aspirin (Children'S Aspirin) 81 mg DAILYWBKFT PEG Last administered on 07/02/19at 10:00; Start 06/26/19 at 08:00 Allopurinol (Zyloprim) 100 mg DAILY PEG Last administered on 07/02/19at 10:00; Start 06/25/19 at 18:17 Quetiapine Fumarate (SEROquel) 12.5 mg PRN Q8HRS PRN PO PSYCHOTIC BEHAVIOR Last administered on 06/28/19at 20:07; Start 06/25/19 at 19:45 Vitamin A/Vitamin D (Vitamin A & D Ointment) 1 héctor PRN BID PRN TP SKIN PROTECTION Last administered on 07/02/19at 10:00; Start 06/26/19 at 06:00 Sodium Chloride 1,000 ml @ 1,000 mls/hr Q1H PRN IV hypotension; Start 06/26/19 at 12:41; Stop 06/26/19 at 18:40; Status DC Info (PHARMACY MONITORING -- do not chart) 1 each PRN DAILY PRN MC SEE COMMENTS; Start 06/26/19 at 12:45; Status UNV Info (PHARMACY MONITORING -- do not chart) 1 each PRN DAILY PRN MC SEE COMMENTS; Start 06/26/19 at 12:45; Status Cancel Sodium Chloride 1,000 ml @ 1,000 mls/hr Q1H PRN IV hypotension; Start 06/29/19 at 12:00; Stop 06/29/19 at 17:59; Status DC Sodium Chloride 1,000 ml @ 400 mls/hr Q2H30M PRN IV PATENCY; Start 06/29/19 at 12:00; Stop 06/29/19 at 23:59; Status DC Info (PHARMACY MONITORING -- do not chart) 1 each PRN DAILY PRN MC SEE COMMENTS; Start 06/29/19 at 16:00; Status UNV Info (PHARMACY MONITORING -- do not chart) 1 each PRN DAILY PRN MC SEE COMMENTS; Start 06/29/19 at 16:00; Status Cancel Info (PHARMACY MONITORING -- do not chart) 1 each PRN DAILY PRN MC SEE COMMENTS; Start 07/01/19 at 14:00; Status UNV Info (PHARMACY MONITORING -- do not chart) 1 each PRN DAILY PRN MC SEE COMMENTS; Start 07/01/19 at 14:00; Stop 07/03/19 at 07:29; Status DC Darbepoetin Chito (ARANESP for DIALYSIS PTS) 60 mcg WEEKLYHS SQ Last administered on 07/01/19at 21:48; Start 07/01/19 at 21:00 Vancomycin HCl (Vancomycin Random Level) 1 each 1X ONCE MC Last administered on 07/03/19at 06:19; Start 07/03/19 at 06:00; Stop 07/03/19 at 06:01; Status DC Lidocaine/Sodium Bicarbonate (Buffered Lidocaine 1%) 3 ml STK-MED ONCE .ROUTE ; Start 07/02/19 at 15:27; Stop 07/02/19 at 15:28; Status DC Dextrose/Sodium Chloride 1,000 ml @ 40 mls/hr Q24H IV Last administered on 07/02/19at 16:45; Start 07/02/19 at 17:00 Sodium Chloride 1,000 ml @ 1,000 mls/hr Q1H PRN IV hypotension; Start 07/03/19 at 07:18; Stop 07/03/19 at 13:17 Albumin Human 200 ml @ 200 mls/hr 1X PRN PRN IV Hypotension; Start 07/03/19 at 07:30; Stop 07/03/19 at 13:29 Acetaminophen (Tylenol) 500 mg 1X PRN PRN PO MILD PAIN / TEMP; Start 07/03/19 at 07:30; Stop 07/04/19 at 07:29 Diphenhydramine HCl (Benadryl) 25 mg 1X PRN PRN IV ITCHING; Start 07/03/19 at 07:30; Stop 07/04/19 at 07:29 Diphenhydramine HCl (Benadryl) 25 mg 1X PRN PRN IV ITCHING; Start 07/03/19 at 07:30; Stop 07/04/19 at 07:29 Sodium Chloride 1,000 ml @ 400 mls/hr Q2H30M PRN IV PATENCY; Start 07/03/19 at 07:18; Stop 07/03/19 at 19:17 Info (PHARMACY MONITORING -- do not chart) 1 each PRN DAILY PRN MC SEE COMMENTS; Start 07/03/19 at 07:30 Info (PHARMACY MONITORING -- do not chart) 1 each PRN DAILY PRN MC SEE COMMENTS; Start 07/03/19 at 07:30; Status UNV Active Scripts Active [place] 5-325 Tablet (Acetaminophen/Hydrocodone Bitart) 1 Each Tablet 0.5 Tab PO Q4HRS Zyvox (Linezolid) 600 Mg Tablet 600 Mg PO BID 4 Days Amox Tr-K Clv 500-125 Mg Tab (Amoxicillin/Potassium Clav) 1 Each Tablet 1 Tab PO DAILY 4 Days Tramadol Hcl 50 Mg Tablet 50 Mg PO PRN Q6HRS PRN Ondansetron Odt (Ondansetron) 4 Mg Tab.rapdis 4 Mg PO Q6HRS PRN Humalog (Insulin Lispro) 100 Unit/1 Ml Insuln.pen 0 Units SQ TIDWMEALS 30 Days BG 150-199= 1 units 200-299= 2 units 300-399= 4 units 400-499= 6 units ac tid sliding scale Reported Omeprazole 20 Mg Tablet.dr 1 Tab PO DAILY Vitamin D3 (Cholecalciferol (Vitamin D3)) 1,000 Unit Tablet 1 Tab PO DAILY Vitamin B-12 (Cyanocobalamin (Vitamin B-12)) 1,000 Mcg Tablet 1 Tab PO DAILY Senna (Sennosides) 8.6 Mg Tablet 8.6 Mg PO PRN DAILY PRN 2 tabs Renvela (Sevelamer Carbonate) 800 Mg Tablet 800 Mg PO TIDWMEALS Renal Caps Softgel (Folic Acid/Vitamin B Comp W-C) 1 Mg Capsule 1 Mg PO DAILY Reglan (Metoclopramide Hcl) 10 Mg Tablet 5 Mg PO TID Probiotic (Lactobacillus Acidophilus) 1 Each Capsule 1 Each PO BID Milk Of Magnesia (Magnesium Hydroxide) 400 Mg/5 Ml Oral.susp 400 Mg PO PRN DAILY PRN Lipitor (Atorvastatin Calcium) 40 Mg Tablet 1 Tab PO QHS Humalog (Insulin Lispro) 100 Unit/1 Ml Insuln.pen 100 Unit SQ TIDBFRMEAL 150-199=1 unit 200-299=2 units 300-399=4 units 100-499=6 units Clopidogrel (Clopidogrel Bisulfate) 75 Mg Tablet 1 Tab PO DAILY Duoneb 0.5-3(2.5) Mg/3 Ml (Albuterol/Ipratropium) 3 Ml Ampul.neb 3 Ml NEB PRN Q4HRS PRN Lac-Hydrin Five (Ammonium Lactate) 226 Gm Lotion 226 Gm TP BID Allopurinol 100 Mg Tablet 1 Tab PO DAILY Tylenol (Acetaminophen) 325 Mg Tablet 1 Tab PO PRN Q4HRS Aspirin 81 Mg Tab.chew 81 Mg PO DAILY Vitals/I & O Vital Sign - Last 24 Hours 07/02/19 07/02/19 07/02/19 07/02/19 11:00 12:40 13:52 16:38 Temp 97.5 98.0 97.5 98.0 Pulse 67 61 Resp 22 22 B/P (MAP) 94/54 (67) 104/55 (71) Pulse Ox 100 100 100 96 O2 Delivery Room Air Room Air Room Air Room Air 07/02/19 07/02/19 07/02/19 07/03/19 19:12 20:00 22:08 02:47 Temp 98.3 98.0 98.1 98.3 98.0 98.1 Pulse 62 65 66 Resp 16 16 B/P (MAP) 125/61 (82) 103/56 (72) 120/73 (89) Pulse Ox 95 94 95 O2 Delivery Room Air Room Air Room Air Room Air 07/03/19 07:00 Temp 98.7 98.7 Pulse 62 Resp 16 B/P (MAP) 129/60 (83) Pulse Ox 92 O2 Delivery Room Air Intake and Output 907/02/19 07/03/19 14:59 22:59 06:59 Intake Total 240 ml Output Total 50 ml Balance -50 ml 240 ml BAN TORRES MD Jul 03, 2019 10:20
--- NOTE | 2019-07-03 10:42 | PDOC ---
PROGRESS NOTES Subjective Subjective seen during hemodialysis. sleeping. lab reviewed. Objective Objective Vital Signs Date Time Temp Pulse Resp B/P (MAP) Pulse Ox O2 Delivery O2 Flow Rate FiO2 07/03/19 07:00 98.7 62 16 129/60 (83) 92 Room Air 98.7 Intake and Output 07/03/19 06:59 Intake Total 240 ml Output Total 50 ml Balance 190 ml Intake Oral 240 ml Output Urine Total 50 ml # Bowel Movements 1 Physical Exam Abdomen: Soft Heart: Regular rate, Normal S1, Normal S2 Extremities: Other (bilateral BKA with dry dressing left BKA stump) General: Other (sleeping) HEENT: Atraumatic Lungs: Clear to auscultation Neuro: Other (sleeping) Psych/Mental Status: Other (sleeping) Skin: No rashes Assessment Assessment Problemsmetabolic encephalopathy. better 2. Pyuria, consistent with urinary tract infection. pus in urine. urine culture grew 10-25K yeast 3. Bilateral below-knee amputation. 4. left below-knee amputation stump wound infection 5. Diabetes mellitus type 2. 6. Peripheral arterial disease. 7. End-stage renal disease, on hemodialysis. m-w-f 8. paroxysmal atrial fibrillation. in nsr. not a coumadin candidate. recent hx of retroperitoneal bleed on anticoagulants and fall risk. 9. Severe protein-calorie malnutrition. 10. Anemia of chronic disease. NSTEMI oropharyngeal dysphagia on HTL pureed Medical Problems: (1) Altered mental status Status: Acute (2) Anemia in chronic illness Status: Chronic (3) CAD (coronary artery disease) Status: Chronic (4) Chronic a-fib Status: Chronic (5) DM2 (diabetes mellitus, type 2) Status: Chronic (6) ESRD (end stage renal disease) Status: Acute (7) HTN (hypertension) Status: Chronic (8) Metabolic encephalopathy Status: Acute (9) NSTEMI (non-ST elevated myocardial infarction) Status: Acute (10) Paroxysmal A-fib Status: Acute (11) Peripheral artery disease Status: Chronic (12) Severe protein-calorie malnutrition Status: Chronic (13) SSS (sick sinus syndrome) Status: Chronic (14) UTI (urinary tract infection) Status: Acute Plan Plan of Care hemodialysis today continue iv vancomycin and zosyn and micafungin PEF next week wound vac iv fluids low rate Comment Review of Relevant I have reviewed the following items soumya (where applicable) has been applied. Labs Laboratory Tests Test 07/01/19 11:22 07/02/19 02:40 07/02/19 06:13 07/02/19 08:15 Glucose (Fingerstick) 347 mg/dL (70-99) 116 mg/dL (70-99) 125 mg/dL (70-99) 137 mg/dL (70-99) Test 07/02/19 12:17 07/02/19 15:25 07/02/19 16:49 07/02/19 20:38 Glucose (Fingerstick) 130 mg/dL (70-99) 112 mg/dL (70-99) 130 mg/dL (70-99) Prothrombin Time 17.9 SEC (11.7-14.0) Prothromb Time International Ratio 1.5 (0.8-1.1) Test 07/03/19 05:45 07/03/19 07:34 White Blood Count 8.9 x10^3/uL (4.0-11.0) Red Blood Count 3.20 x10^6/uL (4.30-5.70) Hemoglobin 9.1 g/dL (13.0-17.5) Hematocrit 27.9 % (39.0-53.0) Mean Corpuscular Volume 87 fL (79-100) Mean Corpuscular Hemoglobin 28 pg (25-35) Mean Corpuscular Hemoglobin Concent 33 g/dL (31-37) Red Cell Distribution Width 18.7 % (11.5-14.5) Platelet Count 389 x10^3/uL (140-400) Neutrophils (%) (Auto) 67 % (31-73) Lymphocytes (%) (Auto) 16 % (24-48) Monocytes (%) (Auto) 11 % (0-9) Eosinophils (%) (Auto) 5 % (0-3) Basophils (%) (Auto) 1 % (0-3) Neutrophils # (Auto) 5.9 x10^3/uL (1.8-7.7) Lymphocytes # (Auto) 1.4 x10^3/uL (1.0-4.8) Monocytes # (Auto) 1.0 x10^3/uL (0.0-1.1) Eosinophils # (Auto) 0.4 x10^3/uL (0.0-0.7) Basophils # (Auto) 0.1 x10^3/uL (0.0-0.2) Erythrocyte Sedimentation Rate > 130 (0-15) Sodium Level 137 mmol/L (136-145) Potassium Level 4.5 mmol/L (3.5-5.1) Chloride Level 98 mmol/L (98-107) Carbon Dioxide Level 28 mmol/L (21-32) Anion Gap 11 (6-14) Blood Urea Nitrogen 38 mg/dL (8-26) Creatinine 4.7 mg/dL (0.7-1.3) Estimated GFR (Cockcroft-Gault) 14.7 Glucose Level 130 mg/dL (70-99) Calcium Level 9.5 mg/dL (8.5-10.1) Random Vancomycin Level 19.5 mcg/mL Glucose (Fingerstick) 109 mg/dL (70-99) Laboratory Tests Test 07/02/19 12:17 07/02/19 15:25 07/02/19 16:49 07/02/19 20:38 Glucose (Fingerstick) 130 mg/dL (70-99) 112 mg/dL (70-99) 130 mg/dL (70-99) Prothrombin Time 17.9 SEC (11.7-14.0) Prothromb Time International Ratio 1.5 (0.8-1.1) Test 07/03/19 05:45 07/03/19 07:34 White Blood Count 8.9 x10^3/uL (4.0-11.0) Red Blood Count 3.20 x10^6/uL (4.30-5.70) Hemoglobin 9.1 g/dL (13.0-17.5) Hematocrit 27.9 % (39.0-53.0) Mean Corpuscular Volume 87 fL (79-100) Mean Corpuscular Hemoglobin 28 pg (25-35) Mean Corpuscular Hemoglobin Concent 33 g/dL (31-37) Red Cell Distribution Width 18.7 % (11.5-14.5) Platelet Count 389 x10^3/uL (140-400) Neutrophils (%) (Auto) 67 % (31-73) Lymphocytes (%) (Auto) 16 % (24-48) Monocytes (%) (Auto) 11 % (0-9) Eosinophils (%) (Auto) 5 % (0-3) Basophils (%) (Auto) 1 % (0-3) Neutrophils # (Auto) 5.9 x10^3/uL (1.8-7.7) Lymphocytes # (Auto) 1.4 x10^3/uL (1.0-4.8) Monocytes # (Auto) 1.0 x10^3/uL (0.0-1.1) Eosinophils # (Auto) 0.4 x10^3/uL (0.0-0.7) Basophils # (Auto) 0.1 x10^3/uL (0.0-0.2) Erythrocyte Sedimentation Rate > 130 (0-15) Sodium Level 137 mmol/L (136-145) Potassium Level 4.5 mmol/L (3.5-5.1) Chloride Level 98 mmol/L (98-107) Carbon Dioxide Level 28 mmol/L (21-32) Anion Gap 11 (6-14) Blood Urea Nitrogen 38 mg/dL (8-26) Creatinine 4.7 mg/dL (0.7-1.3) Estimated GFR (Cockcroft-Gault) 14.7 Glucose Level 130 mg/dL (70-99) Calcium Level 9.5 mg/dL (8.5-10.1) Random Vancomycin Level 19.5 mcg/mL Glucose (Fingerstick) 109 mg/dL (70-99) Microbiology 06/23/19 Urine Culture - Final, Complete 06/23/19 Urine Culture Result 1 (TEREZA) - Final, Complete 06/22/19 Blood Culture - Final, Complete NO GROWTH AFTER 5 DAYS Medications Current Medications Vancomycin HCl 250 ml @ 250 mls/hr 1X ONCE IV ; Start 06/22/19 at 10:45; Stop 06/22/19 at 11:44; Status UNV Piperacillin Sod/ Tazobactam Sod 2.25 gm/Sodium Chloride 50 ml @ 100 mls/hr 1X ONCE IV Last administered on 06/22/19at 11:55; Start 06/22/19 at 10:45; Stop 06/22/19 at 11:14; Status DC Sodium Chloride 1,000 ml @ 100 mls/hr Q10H IV Last administered on 06/22/19at 11:55; Start 06/22/19 at 10:38; Stop 06/22/19 at 20:37; Status DC Vancomycin HCl 2 gm/Sodium Chloride 500 ml @ 250 mls/hr 1X ONCE IV Last administered on 06/22/19at 12:32; Start 06/22/19 at 11:30; Stop 06/22/19 at 13:29; Status DC Info (PHARMACY MONITORING -- do not chart) 1 each PRN DAILY PRN MC SEE COMMENTS; Start 06/22/19 at 16:30; Stop 06/24/19 at 11:38; Status DC Info (PHARMACY MONITORING -- do not chart) 1 each PRN DAILY PRN MC SEE COMMENTS; Start 06/22/19 at 16:30; Status UNV Sodium Chloride 1,000 ml @ 40 mls/hr Q24H IV Last administered on 06/24/19at 18:31; Start 06/22/19 at 17:30; Stop 06/25/19 at 19:44; Status DC Vancomycin HCl (Vanco Per Pharmacy) 1 each PRN DAILY PRN MC SEE COMMENTS Last administered on 07/02/19at 16:15; Start 06/22/19 at 17:30 Piperacillin Sod/ Tazobactam Sod (Zosyn Per Pharmacy) 1 each PRN DAILY PRN MC SEE COMMENTS; Start 06/22/19 at 17:30 Acetaminophen (Tylenol) 650 mg PRN Q6HRS PRN PO MILD PAIN / TEMP; Start 06/22/19 at 17:30; Stop 06/25/19 at 18:15; Status DC Ondansetron HCl (Zofran) 4 mg PRN Q6HRS PRN IV NAUSEA/VOMITING; Start 06/22/19 at 17:30 Clopidogrel Bisulfate (Plavix) 75 mg DAILYWBKFT PO Last administered on 07/02/19at 10:00; Start 06/23/19 at 08:00; Stop 07/02/19 at 14:26; Status DC Vitamin B Complex/ Vitamin C (Carlos-Moses) 1 tab DAILY PO Last administered on 07/02/19at 10:00; Start 06/23/19 at 09:00 Allopurinol (Zyloprim) 100 mg DAILY PO ; Start 06/23/19 at 09:00; Stop 06/25/19 at 18:17; Status DC Atorvastatin Calcium (Lipitor) 40 mg QHS PO Last administered on 06/22/19at 21:37; Start 06/22/19 at 21:00; Stop 06/25/19 at 12:19; Status DC Pantoprazole Sodium (Protonix) 40 mg DAILYAC PO Last administered on 07/02/19at 10:00; Start 06/23/19 at 07:30 Cyanocobalamin (Vitamin B-12) 1,000 mcg DAILY PO Last administered on 07/02/19at 10:00; Start 06/23/19 at 09:00 Piperacillin Sod/ Tazobactam Sod 2.25 gm/Sodium Chloride 50 ml @ 100 mls/hr Q8HRS IV Last administered on 07/03/19at 05:59; Start 06/22/19 at 21:00 Heparin Sodium (Porcine) (Heparin Sodium) 5,000 unit BID SQ Last administered on 06/22/19at 21:37; Start 06/22/19 at 21:00; Stop 06/23/19 at 08:23; Status DC Insulin Human Lispro (HumaLOG) 0-6 UNITS BG 400-49... TIDWMEALS SQ Last administered on 07/01/19at 12:33; Start 06/23/19 at 08:00 Vancomycin HCl (Vancomycin Random Level) 1 each 1X ONCE MC Last administered on 06/24/19at 06:37; Start 06/24/19 at 06:00; Stop 06/24/19 at 06:01; Status DC Heparin Sodium/ Dextrose 500 ml @ 19.3 mls/hr CONT PRN IV SEE I/O RECORD; Start 06/23/19 at 08:30; Stop 06/23/19 at 14:53; Status DC Heparin Sodium (Porcine) (Heparin Sodium) 2,000 unit PRN Q6HRS PRN IV FOR UFH LEVEL LESS THAN 0.2; Start 06/23/19 at 08:30; Stop 06/23/19 at 14:53; Status DC Aspirin (Ecotrin) 325 mg 1X ONCE PO ; Start 06/23/19 at 10:30; Stop 06/23/19 at 10:31; Status DC Aspirin (Ecotrin) 81 mg DAILYWBKFT PO ; Start 06/24/19 at 08:00; Stop 06/25/19 at 18:16; Status DC Ondansetron HCl (Zofran) 4 mg PRN Q6HRS PRN IV NAUSEA/VOMITING; Start 06/24/19 at 07:00; Stop 06/25/19 at 06:59; Status DC Morphine Sulfate (Morphine Sulfate) 1 mg PRN Q10MIN PRN IV SEVERE PAIN 7-10; Start 06/24/19 at 07:00; Stop 06/24/19 at 10:06; Status DC Ringer's Solution 1,000 ml @ 30 mls/hr Q24H IV ; Start 06/24/19 at 07:00; Stop 06/24/19 at 18:59; Status DC Lidocaine HCl (Xylocaine-Mpf 1% 2ml Vial) 2 ml PRN 1X PRN ID PRIOR TO IV START; Start 06/24/19 at 07:00; Stop 06/25/19 at 06:59; Status DC Hydromorphone HCl (Dilaudid) 0.5 mg PRN Q10MIN PRN IV SEV PAIN, Second choice; Start 06/24/19 at 07:00; Stop 06/24/19 at 10:06; Status DC Info (Anti-Coagulation Monitoring By Pharmacy) 1 each PRN DAILY PRN MC SEE COMMENTS Last administered on 06/30/19at 10:17; Start 06/23/19 at 14:30; Stop 06/30/19 at 10:22; Status DC Enoxaparin Sodium (Lovenox Per Pharmacy Treatment Dosing) 1 each 1X PRN MC SEE COMMENTS; Start 06/23/19 at 14:45; Stop 06/23/19 at 21:00; Status DC Enoxaparin Sodium (Lovenox 80mg Syringe) 80 mg 1X ONCE SQ Last administered on 06/23/19at 15:16; Start 06/23/19 at 15:30; Stop 06/23/19 at 15:31; Status DC Heparin Sodium (Porcine) (Heparin Sodium) 5,000 unit Q12HR SQ Last administered on 07/02/19at 21:00; Start 06/24/19 at 11:00 Acetaminophen (Tylenol Supp) 650 mg PRN Q6HRS PRN MA MILD PAIN / TEMP Last administered on 06/24/19at 23:03; Start 06/24/19 at 10:30; Stop 06/28/19 at 11:19; Status DC Tramadol HCl (Ultram) 25 mg PRN Q6HRS PRN PO PAIN MODERATE PAIN Last administered on 07/02/19at 12:40; Start 06/24/19 at 10:30 Ketorolac Tromethamine (Toradol 15mg Vial) 15 mg PRN Q6HRS PRN IV PAIN Last administered on 06/28/19at 17:19; Start 06/24/19 at 10:30; Stop 06/29/19 at 10:29; Status DC Sodium Chloride 1,000 ml @ 1,000 mls/hr Q1H PRN IV hypotension; Start 06/24/19 at 11:27; Stop 06/24/19 at 17:26; Status DC Sodium Chloride 1,000 ml @ 400 mls/hr Q2H30M PRN IV PATENCY; Start 06/24/19 at 11:27; Stop 06/24/19 at 23:26; Status DC Info (PHARMACY MONITORING -- do not chart) 1 each PRN DAILY PRN MC SEE COMMENTS; Start 06/24/19 at 11:30; Status Cancel Info (PHARMACY MONITORING -- do not chart) 1 each PRN DAILY PRN MC SEE COMMENTS; Start 06/24/19 at 11:30; Status UNV Vancomycin HCl 500 mg/Sodium Chloride 100 ml @ 100 mls/hr QMWF IV Last administered on 07/01/19at 18:48; Start 06/24/19 at 16:00 Dextrose (Dextrose 50%-Water Syringe) 12.5 gm PRN Q15MIN PRN IV SEE COMMENTS Last administered on 06/25/19at 01:41; Start 06/25/19 at 01:30 Dextrose 250 ml PRN Q15MIN PRN IV SEE COMMENTS; Start 06/25/19 at 01:30 Micafungin Sodium 100 mg/Dextrose 100 ml @ 100 mls/hr Q24H IV Last administered on 07/02/19at 16:45; Start 06/25/19 at 09:00; Stop 07/03/19 at 08:21; Status DC Metoprolol Tartrate (Lopressor Vial) 2.5 mg Q6HRS IVP Last administered on 06/27/19at 17:59; Start 06/25/19 at 18:00; Stop 06/28/19 at 11:19; Status DC Atorvastatin Calcium (Lipitor) 10 mg QHS PEG Last administered on 07/01/19at 21:48; Start 06/25/19 at 21:00 Ondansetron HCl (Zofran) 4 mg PRN Q6HRS PRN IV NAUSEA/VOMITING; Start 06/26/19 at 07:00; Stop 06/27/19 at 06:59; Status DC Morphine Sulfate (Morphine Sulfate) 1 mg PRN Q10MIN PRN IV SEVERE PAIN 7-10; Start 06/26/19 at 07:00; Stop 06/27/19 at 06:59; Status DC Ringer's Solution 1,000 ml @ 30 mls/hr Q24H IV ; Start 06/26/19 at 07:00; Stop 06/26/19 at 18:59; Status DC Lidocaine HCl (Xylocaine-Mpf 1% 2ml Vial) 2 ml PRN 1X PRN ID PRIOR TO IV START; Start 06/26/19 at 07:00; Stop 06/27/19 at 06:59; Status DC Hydromorphone HCl (Dilaudid) 0.5 mg PRN Q10MIN PRN IV SEV PAIN, Second choice; Start 06/26/19 at 07:00; Stop 06/27/19 at 06:59; Status DC Acetaminophen (Tylenol) 650 mg PRN Q6HRS PRN PEG MILD PAIN / TEMP Last administered on 07/02/19at 21:00; Start 06/25/19 at 18:15 Aspirin (Children'S Aspirin) 81 mg DAILYWBKFT PEG Last administered on 07/02/19at 10:00; Start 06/26/19 at 08:00 Allopurinol (Zyloprim) 100 mg DAILY PEG Last administered on 07/02/19at 10:00; Start 06/25/19 at 18:17 Quetiapine Fumarate (SEROquel) 12.5 mg PRN Q8HRS PRN PO PSYCHOTIC BEHAVIOR Last administered on 06/28/19at 20:07; Start 06/25/19 at 19:45 Vitamin A/Vitamin D (Vitamin A & D Ointment) 1 héctor PRN BID PRN TP SKIN PROTECTION Last administered on 07/02/19at 10:00; Start 06/26/19 at 06:00 Sodium Chloride 1,000 ml @ 1,000 mls/hr Q1H PRN IV hypotension; Start 06/26/19 at 12:41; Stop 06/26/19 at 18:40; Status DC Info (PHARMACY MONITORING -- do not chart) 1 each PRN DAILY PRN MC SEE COMMENTS; Start 06/26/19 at 12:45; Status UNV Info (PHARMACY MONITORING -- do not chart) 1 each PRN DAILY PRN MC SEE COMMENTS; Start 06/26/19 at 12:45; Status Cancel Sodium Chloride 1,000 ml @ 1,000 mls/hr Q1H PRN IV hypotension; Start 06/29/19 at 12:00; Stop 06/29/19 at 17:59; Status DC Sodium Chloride 1,000 ml @ 400 mls/hr Q2H30M PRN IV PATENCY; Start 06/29/19 at 12:00; Stop 06/29/19 at 23:59; Status DC Info (PHARMACY MONITORING -- do not chart) 1 each PRN DAILY PRN MC SEE COMME NTS; Start 06/29/19 at 16:00; Status UNV Info (PHARMACY MONITORING -- do not chart) 1 each PRN DAILY PRN MC SEE COMMENTS; Start 06/29/19 at 16:00; Status Cancel Info (PHARMACY MONITORING -- do not chart) 1 each PRN DAILY PRN MC SEE COMMENTS; Start 07/01/19 at 14:00; Status UNV Info (PHARMACY MONITORING -- do not chart) 1 each PRN DAILY PRN MC SEE COMMENTS; Start 07/01/19 at 14:00; Stop 07/03/19 at 07:29; Status DC Darbepoetin Chito (ARANESP for DIALYSIS PTS) 60 mcg WEEKLYHS SQ Last administered on 07/01/19at 21:48; Start 07/01/19 at 21:00 Vancomycin HCl (Vancomycin Random Level) 1 each 1X ONCE MC Last administered on 07/03/19at 06:19; Start 07/03/19 at 06:00; Stop 07/03/19 at 06:01; Status DC Lidocaine/Sodium Bicarbonate (Buffered Lidocaine 1%) 3 ml STK-MED ONCE .ROUTE ; Start 07/02/19 at 15:27; Stop 07/02/19 at 15:28; Status DC Dextrose/Sodium Chloride 1,000 ml @ 40 mls/hr Q24H IV Last administered on 07/02/19at 16:45; Start 07/02/19 at 17:00 Sodium Chloride 1,000 ml @ 1,000 mls/hr Q1H PRN IV hypotension; Start 07/03/19 at 07:18; Stop 07/03/19 at 13:17 Albumin Human 200 ml @ 200 mls/hr 1X PRN PRN IV Hypotension; Start 07/03/19 at 07:30; Stop 07/03/19 at 13:29 Acetaminophen (Tylenol) 500 mg 1X PRN PRN PO MILD PAIN / TEMP; Start 07/03/19 at 07:30; Stop 07/04/19 at 07:29 Diphenhydramine HCl (Benadryl) 25 mg 1X PRN PRN IV ITCHING; Start 07/03/19 at 07:30; Stop 07/04/19 at 07:29 Diphenhydramine HCl (Benadryl) 25 mg 1X PRN PRN IV ITCHING; Start 07/03/19 at 07:30; Stop 07/04/19 at 07:29 Sodium Chloride 1,000 ml @ 400 mls/hr Q2H30M PRN IV PATENCY; Start 07/03/19 at 07:18; Stop 07/03/19 at 19:17 Info (PHARMACY MONITORING -- do not chart) 1 each PRN DAILY PRN MC SEE COMMENTS; Start 07/03/19 at 07:30 Info (PHARMACY MONITORING -- do not chart) 1 each PRN DAILY PRN MC SEE COMMENTS; Start 07/03/19 at 07:30; Status UNV Active Scripts Active [place] 5-325 Tablet (Acetaminophen/Hydrocodone Bitart) 1 Each Tablet 0.5 Tab PO Q4HRS Zyvox (Linezolid) 600 Mg Tablet 600 Mg PO BID 4 Days Amox Tr-K Clv 500-125 Mg Tab (Amoxicillin/Potassium Clav) 1 Each Tablet 1 Tab PO DAILY 4 Days Tramadol Hcl 50 Mg Tablet 50 Mg PO PRN Q6HRS PRN Ondansetron Odt (Ondansetron) 4 Mg Tab.rapdis 4 Mg PO Q6HRS PRN Humalog (Insulin Lispro) 100 Unit/1 Ml Insuln.pen 0 Units SQ TIDWMEALS 30 Days BG 150-199= 1 units 200-299= 2 units 300-399= 4 units 400-499= 6 units ac tid sliding scale Reported Omeprazole 20 Mg Tablet.dr 1 Tab PO DAILY Vitamin D3 (Cholecalciferol (Vitamin D3)) 1,000 Unit Tablet 1 Tab PO DAILY Vitamin B-12 (Cyanocobalamin (Vitamin B-12)) 1,000 Mcg Tablet 1 Tab PO DAILY Senna (Sennosides) 8.6 Mg Tablet 8.6 Mg PO PRN DAILY PRN 2 tabs Renvela (Sevelamer Carbonate) 800 Mg Tablet 800 Mg PO TIDWMEALS Renal Caps Softgel (Folic Acid/Vitamin B Comp W-C) 1 Mg Capsule 1 Mg PO DAILY Reglan (Metoclopramide Hcl) 10 Mg Tablet 5 Mg PO TID Probiotic (Lactobacillus Acidophilus) 1 Each Capsule 1 Each PO BID Milk Of Magnesia (Magnesium Hydroxide) 400 Mg/5 Ml Oral.susp 400 Mg PO PRN DAILY PRN Lipitor (Atorvastatin Calcium) 40 Mg Tablet 1 Tab PO QHS Humalog (Insulin Lispro) 100 Unit/1 Ml Insuln.pen 100 Unit SQ TIDBFRMEAL 150-199=1 unit 200-299=2 units 300-399=4 units 100-499=6 units Clopidogrel (Clopidogrel Bisulfate) 75 Mg Tablet 1 Tab PO DAILY Duoneb 0.5-3(2.5) Mg/3 Ml (Albuterol/Ipratropium) 3 Ml Ampul.neb 3 Ml NEB PRN Q4HRS PRN Lac-Hydrin Five (Ammonium Lactate) 226 Gm Lotion 226 Gm TP BID Allopurinol 100 Mg Tablet 1 Tab PO DAILY Tylenol (Acetaminophen) 325 Mg Tablet 1 Tab PO PRN Q4HRS Aspirin 81 Mg Tab.chew 81 Mg PO DAILY Vitals/I & O Vital Sign - Last 24 Hours 07/02/19 07/02/19 07/02/19 07/02/19 11:00 12:40 13:52 16:38 Temp 97.5 98.0 97.5 98.0 Pulse 67 61 Resp 22 22 B/P (MAP) 94/54 (67) 104/55 (71) Pulse Ox 100 100 100 96 O2 Delivery Room Air Room Air Room Air Room Air 07/02/19 07/02/19 07/02/19 07/03/19 19:12 20:00 22:08 02:47 Temp 98.3 98.0 98.1 98.3 98.0 98.1 Pulse 62 65 66 Resp 16 16 B/P (MAP) 125/61 (82) 103/56 (72) 120/73 (89) Pulse Ox 95 94 95 O2 Delivery Room Air Room Air Room Air Room Air 07/03/19 07:00 Temp 98.7 98.7 Pulse 62 Resp 16 B/P (MAP) 129/60 (83) Pulse Ox 92 O2 Delivery Room Air Intake and Output 07/02/19 07/02/19 07/03/19 14:59 22:59 06:59 Intake Total 240 ml Output Total 50 ml Balance -50 ml 240 ml Nutrition Consultation Dietary Evaluation: Recommendations by RD: Increase Calorie Intake, Protein supplementation Comments: Continue w/dysphagia I diet w/honey thick liquids per ROD TAPE OPERATOR, recommend Magic cup supplements TID; recommend Marcell BID, thicken on unit Continue w/carlos-moses for wound healing Will re-order TF s/p PEG placement, recommend resume Nepro@goal rate 40 ml/hr w/200 ml water flushes q4 hrs or flushes per MD Expected Outcomes/Goals: New goal 06/30: TF infusion + PO intake to meet >75% est needs - met at times, goal ongoing Malnutrition Findings: Food and Nutrition Intake (Sev: <50% est energy req 5days Weight Status: Appropriate SAM OLMOS MD Jul 03, 2019 10:42
[2019-07-03] MEDS: VANCOMYCIN PER PHARMACY MC PRN (11:30)
--- NOTE | 2019-07-03 12:30 | PDOC ---
Objective: Objective: D/w nurse - takes some PO, doesn't think pt wants PEG. Vital Signs: Vital Signs Date Time Temp Pulse Resp B/P (MAP) Pulse Ox O2 Delivery O2 Flow Rate FiO2 07/03/19 07:00 98.7 62 16 129/60 (83) 92 Room Air 98.7 Labs: Laboratory Tests Test 07/02/19 15:25 07/02/19 16:49 07/02/19 20:38 07/03/19 05:45 Prothrombin Time 17.9 SEC Prothromb Time International Ratio 1.5 Glucose (Fingerstick) 112 mg/dL 130 mg/dL White Blood Count 8.9 x10^3/uL Red Blood Count 3.20 x10^6/uL Hemoglobin 9.1 g/dL Hematocrit 27.9 % Mean Corpuscular Volume 87 fL Mean Corpuscular Hemoglobin 28 pg Mean Corpuscular Hemoglobin Concent 33 g/dL Red Cell Distribution Width 18.7 % Platelet Count 389 x10^3/uL Neutrophils (%) (Auto) 67 % Lymphocytes (%) (Auto) 16 % Monocytes (%) (Auto) 11 % Eosinophils (%) (Auto) 5 % Basophils (%) (Auto) 1 % Neutrophils # (Auto) 5.9 x10^3/uL Lymphocytes # (Auto) 1.4 x10^3/uL Monocytes # (Auto) 1.0 x10^3/uL Eosinophils # (Auto) 0.4 x10^3/uL Basophils # (Auto) 0.1 x10^3/uL Erythrocyte Sedimentation Rate > 130 Sodium Level 137 mmol/L Potassium Level 4.5 mmol/L Chloride Level 98 mmol/L Carbon Dioxide Level 28 mmol/L Anion Gap 11 Blood Urea Nitrogen 38 mg/dL Creatinine 4.7 mg/dL Estimated GFR (Cockcroft-Gault) 14.7 Glucose Level 130 mg/dL Calcium Level 9.5 mg/dL Random Vancomycin Level 19.5 mcg/mL Test 07/03/19 07:34 Glucose (Fingerstick) 109 mg/dL Imaging: CXR 07/02 IMPRESSION: Interval placement of right IJ catheter, coursing medially into the left brachiocephalic vein, abnormal and should be repositioned. Of note, subsequent fluoroscopic imaging from 07/02/2019, 3:51 PM demonstrates appropriate positioning of this right IJ catheter. PE: GEN: dialyzing NEURO/PSYCH: not awakened A/P: Dysphagia/need for non-oral nutrition UTI - atbx per ID Left BKA site wound - vascular involved -- Tentative plans for PEG placement on Saturday after discussed w/ daughter yesterday. Plavix on hold, remains on ASA and SQ Heparin. EULOGIO SOLORIO Jul 03, 2019 12:30
--- NOTE | 2019-07-03 13:35 | PDOC ---
SUBJECTIVE ROS Stable OBJECTIVE Vital Signs Vital Signs Date Time Temp Pulse Resp B/P (MAP) Pulse Ox O2 Delivery O2 Flow Rate FiO2 07/03/19 07:00 98.7 62 16 129/60 (83) 92 Room Air 98.7 I & 0 Intake and Output 07/03/19 06:59 Intake Total 240 ml Output Total 50 ml Balance 190 ml Intake Oral 240 ml Output Urine Total 50 ml # Bowel Movements 1 PHYSICAL EXAM Physical Exam GENERAL: NAD NECK: Supple. HEART: S1, S2. LUNGS: Clear bilaterally. ABDOMEN: Soft, nontender, obese. Bowel sounds present. EXTREMITIES: Right below knee amputation, left lower extremity amputation stump has a wound with a necrotic area. Right upper extremity AV fistula site Neuro- Moves upper extremity, answers a few questions, follows a few commands. 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 Dysphagia- PEG placement on Saturday Chronic atrial fibrillation. COMMENT/RELEVANT DATA Meds Current Medications Medications (Trade) Dose Ordered Sig/Mitzi Start Time Stop Time Status Last Admin Dose Admin Acetaminophen (Tylenol Supp) 650 mg PRN Q6HRS PRN 06/24/19 10:30 06/28/19 11:19 DC 06/24/19 23:03 650 MG Acetaminophen (Tylenol) 500 mg 1X PRN PRN 07/03/19 07:30 07/04/19 07:29 Albumin Human 200 ml @ 200 mls/hr 1X PRN PRN 07/03/19 07:30 07/03/19 13:29 DC Allopurinol (Zyloprim) 100 mg DAILY 06/25/19 18:17 07/02/19 10:00 100 MG Aspirin (Children'S Aspirin) 81 mg DAILYWBKFT 06/26/19 08:00 07/02/19 10:00 81 MG Aspirin (Ecotrin) 81 mg DAILYWBKFT 06/24/19 08:00 06/25/19 18:16 DC Atorvastatin Calcium (Lipitor) 10 mg QHS 06/25/19 21:00 07/01/19 21:48 10 MG Clopidogrel Bisulfate (Plavix) 75 mg DAILYWBKFT 06/23/19 08:00 07/02/19 14:26 DC 07/02/19 10:00 75 MG Cyanocobalamin (Vitamin B-12) 1,000 mcg DAILY 06/23/19 09:00 07/02/19 10:00 1,000 MCG Darbepoetin Chito (ARANESP for DIALYSIS PTS) 60 mcg WEEKLYHS 07/01/19 21:00 07/01/19 21:48 60 MCG Dextrose 250 ml PRN Q15MIN PRN 06/25/19 01:30 Dextrose (Dextrose 50%-Water Syringe) 12.5 gm PRN Q15MIN PRN 06/25/19 01:30 06/25/19 01:41 12.5 GM Dextrose/Sodium Chloride 1,000 ml @ 40 mls/hr Q24H 07/02/19 17:00 07/02/19 16:45 40 MLS/HR Diphenhydramine HCl (Benadryl) 25 mg 1X PRN PRN 07/03/19 07:30 07/04/19 07:29 Enoxaparin Sodium (Lovenox 80mg Syringe) 80 mg 1X ONCE 06/23/19 15:30 06/23/19 15:31 DC 06/23/19 15:16 80 MG Enoxaparin Sodium (Lovenox Per Pharmacy Treatment Dosing) 1 each 1X PRN 06/23/19 14:45 06/23/19 21:00 DC Heparin Sodium (Porcine) (Heparin Sodium) 5,000 unit Q12HR 06/24/19 11:00 07/02/19 21:00 5,000 UNIT Heparin Sodium/ Dextrose 500 ml @ 19.3 mls/hr CONT PRN 06/23/19 08:30 06/23/19 14:53 DC Hydromorphone HCl (Dilaudid) 0.5 mg PRN Q10MIN PRN 06/26/19 07:00 06/27/19 06:59 DC Info (Anti-Coagulation Monitoring By Pharmacy) 1 each PRN DAILY PRN 06/23/19 14:30 06/30/19 10:22 DC 06/30/19 10:17 1 EACH Info (PHARMACY MONITORING -- do not chart) 1 each PRN DAILY PRN 07/03/19 07:30 UNV Insulin Human Lispro (HumaLOG) 0-6 UNITS BG 400-49... TIDWMEALS 06/23/19 08:00 07/01/19 12:33 4 UNITS Ketorolac Tromethamine (Toradol 15mg Vial) 15 mg PRN Q6HRS PRN 06/24/19 10:30 06/29/19 10:29 DC 06/28/19 17:19 15 MG Lidocaine HCl (Xylocaine-Mpf 1% 2ml Vial) 2 ml PRN 1X PRN 06/26/19 07:00 06/27/19 06:59 DC Lidocaine/Sodium Bicarbonate (Buffered Lidocaine 1%) 3 ml STK-MED ONCE 07/02/19 15:27 07/02/19 15:28 DC Metoprolol Tartrate (Lopressor Vial) 2.5 mg Q6HRS 06/25/19 18:00 06/28/19 11:19 DC 06/27/19 17:59 2.5 MG Micafungin Sodium 100 mg/Dextrose 100 ml @ 100 mls/hr Q24H 06/25/19 09:00 07/03/19 08:21 DC 07/02/19 16:45 100 MLS/HR Morphine Sulfate (Morphine Sulfate) 1 mg PRN Q10MIN PRN 06/26/19 07:00 06/27/19 06:59 DC Ondansetron HCl (Zofran) 4 mg PRN Q6HRS PRN 06/26/19 07:00 06/27/19 06:59 DC Pantoprazole Sodium (Protonix) 40 mg DAILYAC 06/23/19 07:30 07/02/19 10:00 40 MG Piperacillin Sod/ Tazobactam Sod (Zosyn Per Pharmacy) 1 each PRN DAILY PRN 06/22/19 17:30 Piperacillin Sod/ Tazobactam Sod 2.25 gm/Sodium Chloride 50 ml @ 100 mls/hr Q8HRS 06/22/19 21:00 07/03/19 05:59 100 MLS/HR Quetiapine Fumarate (SEROquel) 12.5 mg PRN Q8HRS PRN 06/25/19 19:45 06/28/19 20:07 12.5 MG Ringer's Solution 1,000 ml @ 30 mls/hr Q24H 06/26/19 07:00 06/26/19 18:59 DC Sodium Chloride 1,000 ml @ 400 mls/hr Q2H30M PRN 07/03/19 07:18 07/03/19 19:17 Tramadol HCl (Ultram) 25 mg PRN Q6HRS PRN 06/24/19 10:30 07/02/19 12:40 25 MG Vancomycin HCl (Vanco Per Pharmacy) 1 each PRN DAILY PRN 06/22/19 17:30 07/03/19 11:30 1 EACH Vancomycin HCl (Vancomycin Random Level) 1 each 1X ONCE 07/03/19 06:00 07/03/19 06:01 DC 07/03/19 06:19 1 EACH Vancomycin HCl 500 mg/Sodium Chloride 100 ml @ 100 mls/hr QMWF 06/24/19 16:00 07/01/19 18:48 100 MLS/HR Vancomycin HCl 2 gm/Sodium Chloride 500 ml @ 250 mls/hr 1X ONCE 06/22/19 11:30 06/22/19 13:29 DC 06/22/19 12:32 250 MLS/HR Vitamin A/Vitamin D (Vitamin A & D Ointment) 1 héctor PRN BID PRN 06/26/19 06:00 07/02/19 10:00 1 HÉCTOR Vitamin B Complex/ Vitamin C (Rosalie-Judah) 1 tab DAILY 06/23/19 09:00 07/02/19 10:00 1 TAB Lab Laboratory Tests Test 07/02/19 15:25 07/02/19 16:49 07/02/19 20:38 07/03/19 05:45 Prothrombin Time 17.9 SEC (11.7-14.0) Prothromb Time International Ratio 1.5 (0.8-1.1) Glucose (Fingerstick) 112 mg/dL (70-99) 130 mg/dL (70-99) White Blood Count 8.9 x10^3/uL (4.0-11.0) Red Blood Count 3.20 x10^6/uL (4.30-5.70) Hemoglobin 9.1 g/dL (13.0-17.5) Hematocrit 27.9 % (39.0-53.0) Mean Corpuscular Volume 87 fL (79-100) Mean Corpuscular Hemoglobin 28 pg (25-35) Mean Corpuscular Hemoglobin Concent 33 g/dL (31-37) Red Cell Distribution Width 18.7 % (11.5-14.5) Platelet Count 389 x10^3/uL (140-400) Neutrophils (%) (Auto) 67 % (31-73) Lymphocytes (%) (Auto) 16 % (24-48) Monocytes (%) (Auto) 11 % (0-9) Eosinophils (%) (Auto) 5 % (0-3) Basophils (%) (Auto) 1 % (0-3) Neutrophils # (Auto) 5.9 x10^3/uL (1.8-7.7) Lymphocytes # (Auto) 1.4 x10^3/uL (1.0-4.8) Monocytes # (Auto) 1.0 x10^3/uL (0.0-1.1) Eosinophils # (Auto) 0.4 x10^3/uL (0.0-0.7) Basophils # (Auto) 0.1 x10^3/uL (0.0-0.2) Erythrocyte Sedimentation Rate > 130 (0-15) Sodium Level 137 mmol/L (136-145) Potassium Level 4.5 mmol/L (3.5-5.1) Chloride Level 98 mmol/L (98-107) Carbon Dioxide Level 28 mmol/L (21-32) Anion Gap 11 (6-14) Blood Urea Nitrogen 38 mg/dL (8-26) Creatinine 4.7 mg/dL (0.7-1.3) Estimated GFR (Cockcroft-Gault) 14.7 Glucose Level 130 mg/dL (70-99) Calcium Level 9.5 mg/dL (8.5-10.1) Random Vancomycin Level 19.5 mcg/mL Test 07/03/19 07:34 Glucose (Fingerstick) 109 mg/dL (70-99) Results All relevant outside records, renal labs, imaging studies, telemetry/EKG's were reviewed. BLANCA SANTA MD Jul 03, 2019 13:35
[2019-07-03] MEDS: PANTOPRAZOLE 40 MG TABLET.DR. PO SCH (13:59)
[2019-07-03] MEDS: ALLOPURINOL 100 MG TABLET. PEG SCH (13:59)
[2019-07-03] MEDS: ASPIRIN CHEWABLE 81 MG TABLET. PEG SCH (13:59)
[2019-07-03] MEDS: CYANOCOBALAMIN (VITAMIN B-12) 1,000 MCG TABLET. PO SCH (13:59)
[2019-07-03] MEDS: FOLIC/VIT B COMP W-C (RENAL) TABLET. PO SCH (13:59)
--- NOTE | 2019-07-03 13:59 | PDOC ---
CARDIO Progress Notes Date and Time Date of Service 07/03/2019 Time of Evaluation 1350 Subjective Subjective: No Chest Pain, No shortness of breath, No Palpitations, Other (talking more today) Vitals Vitals Vital Signs Date Time Temp Pulse Resp B/P (MAP) Pulse Ox O2 Delivery O2 Flow Rate FiO2 07/03/19 07:00 98.7 62 16 129/60 (83) 92 Room Air 98.7 Weight Weight [ ] Input and Output Intake and Output Intake and Output 07/03/19 06:59 Intake Total 240 ml Output Total 50 ml Balance 190 ml Intake Oral 240 ml Output Urine Total 50 ml # Bowel Movements 1 Laboratory Labs Laboratory Tests Test 07/02/19 15:25 07/02/19 16:49 07/02/19 20:38 07/03/19 05:45 Prothrombin Time 17.9 SEC (11.7-14.0) Prothromb Time International Ratio 1.5 (0.8-1.1) Glucose (Fingerstick) 112 mg/dL (70-99) 130 mg/dL (70-99) White Blood Count 8.9 x10^3/uL (4.0-11.0) Red Blood Count 3.20 x10^6/uL (4.30-5.70) Hemoglobin 9.1 g/dL (13.0-17.5) Hematocrit 27.9 % (39.0-53.0) Mean Corpuscular Volume 87 fL (79-100) Mean Corpuscular Hemoglobin 28 pg (25-35) Mean Corpuscular Hemoglobin Concent 33 g/dL (31-37) Red Cell Distribution Width 18.7 % (11.5-14.5) Platelet Count 389 x10^3/uL (140-400) Neutrophils (%) (Auto) 67 % (31-73) Lymphocytes (%) (Auto) 16 % (24-48) Monocytes (%) (Auto) 11 % (0-9) Eosinophils (%) (Auto) 5 % (0-3) Basophils (%) (Auto) 1 % (0-3) Neutrophils # (Auto) 5.9 x10^3/uL (1.8-7.7) Lymphocytes # (Auto) 1.4 x10^3/uL (1.0-4.8) Monocytes # (Auto) 1.0 x10^3/uL (0.0-1.1) Eosinophils # (Auto) 0.4 x10^3/uL (0.0-0.7) Basophils # (Auto) 0.1 x10^3/uL (0.0-0.2) Erythrocyte Sedimentation Rate > 130 (0-15) Sodium Level 137 mmol/L (136-145) Potassium Level 4.5 mmol/L (3.5-5.1) Chloride Level 98 mmol/L (98-107) Carbon Dioxide Level 28 mmol/L (21-32) Anion Gap 11 (6-14) Blood Urea Nitrogen 38 mg/dL (8-26) Creatinine 4.7 mg/dL (0.7-1.3) Estimated GFR (Cockcroft-Gault) 14.7 Glucose Level 130 mg/dL (70-99) Calcium Level 9.5 mg/dL (8.5-10.1) Random Vancomycin Level 19.5 mcg/mL Test 07/03/19 07:34 Glucose (Fingerstick) 109 mg/dL (70-99) Microbiology Micro Microbiology 06/23/19 Urine Culture - Final, Complete 06/23/19 Urine Culture Result 1 (TEREZA) - Final, Complete 06/22/19 Blood Culture - Final, Complete NO GROWTH AFTER 5 DAYS Review of Systems Constitutional: yes: other Physical Exam HEENT: Neck Supple W Full Motion Chest: Symmetric LUNGS: Other (diminished bases) Heart: RRR (Atrial tach) Abdomen: Soft N/T Extremities: Other (bilateral BKA) Neurology: alert, follow commands, other (oriented to self) Assessment Assessment 1. UTI/cystitis: yeast per urine Cx. Notable hematuria/clots, on CBI Urology/ID following 2. Metabolic Encephalopathy: now verbal, better 3. NSTEMI: multifactorial. EF 45-50% unchanged. No CP 4. Chronic diastolic/systolic CHF: compensated 5. PAFIB: currently on atrial tach. Controlled 6. Hypertension; controlled 7. CAD; s/p PCI/stent in the past. clinically stable. CP free. 8. Hx of PAD: with bilateral BKA: left debridement pending today. 9. H/o CVA with left side hemiparesis 10. ESRD on HD 11. SSS s/p PPM ([employer]) VVIR, occasional brief NSVT 16% V paced 12. DM2/HLP: BG and lipids on goal. 13. Hx of psoas hematoma r/t to past coumadin Recommendations 1. ASA, Continue with secondary prevention 2. Fluid offloading/management via HD as per nephrology. 3. Not a candidate for previous coumadin due to past bleed with psoas hematoma. Continue ASA for stroke prevention 4. PEG placement on Saturday. Family wants full aggressive care. Plan for MPI on Saturday. 5. Supportive care for now. Optimize medical therapy. MARIANN SCHAFER STRUCTURAL STEEL WORKER HELPER Jul 03, 2019 13:59
[2019-07-03] MEDS: HEPARIN for SUB-Q USE 5,000 UNIT/ML VIAL. SQ SCH ×2 (14:01→21:29)
[2019-07-03 15:00] VITALS: BP 109/60
[2019-07-03] MEDS: VANCOMYCIN 500 MG in IV NORMAL SALINE 100ML 100 ML IV SCH (16:10)
[2019-07-03 19:00] VITALS: BP 119/63
[2019-07-03] MEDS: IV DEXTROSE 5 %-0.45 % NACL 1,000 ML IV SCH (19:53)
[2019-07-03] MEDS: METOPROLOL SUCC 24HR ER 25 MG TAB.ER.24H. PO SCH (19:55)
[2019-07-03] MEDS: ATORVASTATIN CALCIUM 10 MG TABLET. PEG SCH (21:28)
[2019-07-03 23:41] VITALS: BP 107/41
[2019-07-04 03:00] VITALS: BP 98/43
[2019-07-04] MEDS: PIPERACILLIN/TAZOBACTAM 2.25 GM in IV NORMAL SALINE 50ML 50 ML IV SCH ×3 (05:39→21:53)
[2019-07-04 07:00] VITALS: BP 114/48
[2019-07-04] MEDS: INSULIN LISPRO 300 UNITS/3 ML VIAL. SQ SCH ×3 (08:00→17:00)
[2019-07-04] MEDS: CYANOCOBALAMIN (VITAMIN B-12) 1,000 MCG TABLET. PO SCH (08:44)
[2019-07-04] MEDS: FOLIC/VIT B COMP W-C (RENAL) TABLET. PO SCH (08:45)
[2019-07-04] MEDS: PANTOPRAZOLE 40 MG TABLET.DR. PO SCH (08:45)
[2019-07-04] MEDS: ASPIRIN ENTERIC COATED 81 MG TABLET.DR. PO SCH (08:45)
[2019-07-04] MEDS: METOPROLOL SUCC 24HR ER 25 MG TAB.ER.24H. PO SCH (08:45)
[2019-07-04] MEDS: ALLOPURINOL 100 MG TABLET. PEG SCH (08:46)
[2019-07-04] MEDS: HEPARIN for SUB-Q USE 5,000 UNIT/ML VIAL. SQ SCH ×2 (08:47→21:09)
--- NOTE | 2019-07-04 09:40 | PDOC ---
Infectious Disease Note Subjective Subjective Doing alright No fevers last 24 hours Small BM Denies pain ROS ROS per HPI Vital Sign Vital Signs Vital Signs Date Time Temp Pulse Resp B/P (MAP) Pulse Ox O2 Delivery O2 Flow Rate FiO2 07/04/19 08:47 63 114/48 07/04/19 07:00 97.5 18 100 Room Air 97.5 Physical Exam PHYSICAL EXAM GENERAL: Propped up in bed, alert, eating NECK: Supple. HEART: S1, S2. LUNGS: Clear bilaterally. ABDOMEN: Soft, nontender, obese. Bowel sounds present EXTREMITIES: Right below knee amputation, scar healthy, left lower extremity amputation stump has a wound vac in place. 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 URINE CULTURE RES 1 Final Yeast isolated. Objective Assessment Urinary tract infection. No leukocyte esterase or nitrite done. Not done again on repeat UA 06/24. urine had pus like appearance when Finley placement was attempted, yeast on uc likely colonization Finley now in place - cults neg Altered mental status, likely multifactorial. 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 Low-grade fevers. Leukocytosis - improved - C-diff neg Anemia of chronic disease. Severe protein-calorie malnutrition per speech no aspiration but slow to swallow and not able to maintain adequate po Chronic atrial fibrillation. High troponin with working diagnosis of non-STEMI. Chronic sacral wound, superficial. Yeast in groin Dysphagia on ngt h/o Enterobacter aerogenes, VRE, MSSA wound infection Plan Plan of Care Continue Vanc,Zosyn, renal dosing Random vanc trough 19.5 Off micafungin sed rate >130 Wound care per vascular, may need debridement, awaiting f/u Maintain aspiration precautions Palliative consulted - aggressive measures continuing D/w nursing Attending Co-Sign The patient was seen and interviewed as well as examined at the bedside. The chart was reviewed. The case was discussed. Agree with the plan of care. KALIN ORELLANA PRE KINDERGARTEN TEACHER Jul 04, 2019 09:40 KELI MOLINA MD Jul 04, 2019 11:18
[2019-07-04 11:00] VITALS: BP 101/59
--- NOTE | 2019-07-04 11:18 | PDOC ---
PROGRESS NOTES Subjective Subjective feels okay. comfortable. Objective Objective Vital Signs Date Time Temp Pulse Resp B/P (MAP) Pulse Ox O2 Delivery O2 Flow Rate FiO2 07/04/19 08:47 63 114/48 07/04/19 08:00 Room Air 07/04/19 07:00 97.5 18 100 97.5 Intake and Output 07/04/19 07:00 Intake Total 640 ml Output Total 50 ml Balance 590 ml Intake Oral 90 ml IV Total 550 ml Output Urine Total 50 ml # Bowel Movements 1 Physical Exam Abdomen: Soft Heart: Regular rate, Normal S1, Normal S2 Extremities: Other (bilateral BKA with left BKA stump wound vac) General: Alert HEENT: Atraumatic Lungs: Clear to auscultation Neuro: Normal speech Psych/Mental Status: Mood NL Skin: No rashes Assessment Assessment Problemsmetabolic encephalopathy. better 2. Pyuria, consistent with urinary tract infection. pus in urine. urine culture grew 10-25K yeast 3. Bilateral below-knee amputation. 4. left below-knee amputation stump wound infection 5. Diabetes mellitus type 2. 6. Peripheral arterial disease. 7. End-stage renal disease, on hemodialysis. m-w-f 8. paroxysmal atrial fibrillation. in nsr. not a coumadin candidate. recent hx of retroperitoneal bleed on anticoagulants and fall risk. 9. Severe protein-calorie malnutrition. 10. Anemia of chronic disease. NSTEMI oropharyngeal dysphagia on HTL pureed Medical Problems: Medical Problems: (1) Altered mental status Status: Acute (2) Anemia in chronic illness Status: Chronic (3) CAD (coronary artery disease) Status: Chronic (4) Chronic a-fib Status: Chronic (5) DM2 (diabetes mellitus, type 2) Status: Chronic (6) ESRD (end stage renal disease) Status: Acute (7) HTN (hypertension) Status: Chronic (8) Metabolic encephalopathy Status: Acute (9) NSTEMI (non-ST elevated myocardial infarction) Status: Acute (10) Paroxysmal A-fib Status: Acute (11) Peripheral artery disease Status: Chronic (12) Severe protein-calorie malnutrition Status: Chronic (13) SSS (sick sinus syndrome) Status: Chronic (14) UTI (urinary tract infection) Status: Acute Plan Plan of Care PEG saturday hemodialysis saturday continue vancomycin and zosyn continue wound care and wound vac Comment Review of Relevant I have reviewed the following items soumya (where applicable) has been applied. Labs Laboratory Tests Test 07/02/19 12:17 07/02/19 15:25 07/02/19 16:49 07/02/19 20:38 Glucose (Fingerstick) 130 mg/dL (70-99) 112 mg/dL (70-99) 130 mg/dL (70-99) Prothrombin Time 17.9 SEC (11.7-14.0) Prothromb Time International Ratio 1.5 (0.8-1.1) Test 07/03/19 05:45 07/03/19 07:34 07/03/19 17:32 07/03/19 21:20 White Blood Count 8.9 x10^3/uL (4.0-11.0) Red Blood Count 3.20 x10^6/uL (4.30-5.70) Hemoglobin 9.1 g/dL (13.0-17.5) Hematocrit 27.9 % (39.0-53.0) Mean Corpuscular Volume 87 fL (79-100) Mean Corpuscular Hemoglobin 28 pg (25-35) Mean Corpuscular Hemoglobin Concent 33 g/dL (31-37) Red Cell Distribution Width 18.7 % (11.5-14.5) Platelet Count 389 x10^3/uL (140-400) Neutrophils (%) (Auto) 67 % (31-73) Lymphocytes (%) (Auto) 16 % (24-48) Monocytes (%) (Auto) 11 % (0-9) Eosinophils (%) (Auto) 5 % (0-3) Basophils (%) (Auto) 1 % (0-3) Neutrophils # (Auto) 5.9 x10^3/uL (1.8-7.7) Lymphocytes # (Auto) 1.4 x10^3/uL (1.0-4.8) Monocytes # (Auto) 1.0 x10^3/uL (0.0-1.1) Eosinophils # (Auto) 0.4 x10^3/uL (0.0-0.7) Basophils # (Auto) 0.1 x10^3/uL (0.0-0.2) Erythrocyte Sedimentation Rate > 130 (0-15) Sodium Level 137 mmol/L (136-145) Potassium Level 4.5 mmol/L (3.5-5.1) Chloride Level 98 mmol/L (98-107) Carbon Dioxide Level 28 mmol/L (21-32) Anion Gap 11 (6-14) Blood Urea Nitrogen 38 mg/dL (8-26) Creatinine 4.7 mg/dL (0.7-1.3) Estimated GFR (Cockcroft-Gault) 14.7 Glucose Level 130 mg/dL (70-99) Calcium Level 9.5 mg/dL (8.5-10.1) Random Vancomycin Level 19.5 mcg/mL Glucose (Fingerstick) 109 mg/dL (70-99) 185 mg/dL (70-99) 144 mg/dL (70-99) Test 07/04/19 07:52 Glucose (Fingerstick) 128 mg/dL (70-99) Laboratory Tests Test 07/03/19 17:32 07/03/19 21:20 07/04/19 07:52 Glucose (Fingerstick) 185 mg/dL (70-99) 144 mg/dL (70-99) 128 mg/dL (70-99) Microbiology 06/23/19 Urine Culture - Final, Complete 06/23/19 Urine Culture Result 1 (TEREZA) - Final, Complete 06/22/19 Blood Culture - Final, Complete NO GROWTH AFTER 5 DAYS Medications Current Medications Vancomycin HCl 250 ml @ 250 mls/hr 1X ONCE IV ; Start 06/22/19 at 10:45; Stop 06/22/19 at 11:44; Status UNV Piperacillin Sod/ Tazobactam Sod 2.25 gm/Sodium Chloride 50 ml @ 100 mls/hr 1X ONCE IV Last administered on 06/22/19at 11:55; Start 06/22/19 at 10:45; Stop 06/22/19 at 11:14; Status DC Sodium Chloride 1,000 ml @ 100 mls/hr Q10H IV Last administered on 06/22/19at 11:55; Start 06/22/19 at 10:38; Stop 06/22/19 at 20:37; Status DC Vancomycin HCl 2 gm/Sodium Chloride 500 ml @ 250 mls/hr 1X ONCE IV Last administered on 06/22/19at 12:32; Start 06/22/19 at 11:30; Stop 06/22/19 at 13:29; Status DC Info (PHARMACY MONITORING -- do not chart) 1 each PRN DAILY PRN MC SEE COM MENTS; Start 06/22/19 at 16:30; Stop 06/24/19 at 11:38; Status DC Info (PHARMACY MONITORING -- do not chart) 1 each PRN DAILY PRN MC SEE COMMENTS; Start 06/22/19 at 16:30; Status UNV Sodium Chloride 1,000 ml @ 40 mls/hr Q24H IV Last administered on 06/24/19at 18:31; Start 06/22/19 at 17:30; Stop 06/25/19 at 19:44; Status DC Vancomycin HCl (Vanco Per Pharmacy) 1 each PRN DAILY PRN MC SEE COMMENTS Last administered on 07/03/19at 11:30; Start 06/22/19 at 17:30 Piperacillin Sod/ Tazobactam Sod (Zosyn Per Pharmacy) 1 each PRN DAILY PRN MC SEE COMMENTS; Start 06/22/19 at 17:30 Acetaminophen (Tylenol) 650 mg PRN Q6HRS PRN PO MILD PAIN / TEMP; Start 06/22/19 at 17:30; Stop 06/25/19 at 18:15; Status DC Ondansetron HCl (Zofran) 4 mg PRN Q6HRS PRN IV NAUSEA/VOMITING; Start 06/22/19 at 17:30 Clopidogrel Bisulfate (Plavix) 75 mg DAILYWBKFT PO Last administered on 07/02/19at 10:00; Start 06/23/19 at 08:00; Stop 07/02/19 at 14:26; Status DC Vitamin B Complex/ Vitamin C (Carlos-Moses) 1 tab DAILY PO Last administered on 07/04/19at 08:47; Start 06/23/19 at 09:00 Allopurinol (Zyloprim) 100 mg DAILY PO ; Start 06/23/19 at 09:00; Stop 06/25/19 at 18:17; Status DC Atorvastatin Calcium (Lipitor) 40 mg QHS PO Last administered on 06/22/19at 21:37; Start 06/22/19 at 21:00; Stop 06/25/19 at 12:19; Status DC Pantoprazole Sodium (Protonix) 40 mg DAILYAC PO Last administered on 07/04/19at 08:47; Start 06/23/19 at 07:30 Cyanocobalamin (Vitamin B-12) 1,000 mcg DAILY PO Last administered on 07/04/19at 08:47; Start 06/23/19 at 09:00 Piperacillin Sod/ Tazobactam Sod 2.25 gm/Sodium Chloride 50 ml @ 100 mls/hr Q8HRS IV Last administered on 07/04/19at 05:39; Start 06/22/19 at 21:00 Heparin Sodium (Porcine) (Heparin Sodium) 5,000 unit BID SQ Last administered on 06/22/19at 21:37; Start 06/22/19 at 21:00; Stop 06/23/19 at 08:23; Status DC Insulin Human Lispro (HumaLOG) 0-6 UNITS BG 400-49... TIDWMEALS SQ Last administered on 07/01/19at 12:33; Start 06/23/19 at 08:00 Vancomycin HCl (Vancomycin Random Level) 1 each 1X ONCE MC Last administered on 06/24/19at 06:37; Start 06/24/19 at 06:00; Stop 06/24/19 at 06:01; Status DC Heparin Sodium/ Dextrose 500 ml @ 19.3 mls/hr CONT PRN IV SEE I/O RECORD; Start 06/23/19 at 08:30; Stop 06/23/19 at 14:53; Status DC Heparin Sodium (Porcine) (Heparin Sodium) 2,000 unit PRN Q6HRS PRN IV FOR UFH LEVEL LESS THAN 0.2; Start 06/23/19 at 08:30; Stop 06/23/19 at 14:53; Status DC Aspirin (Ecotrin) 325 mg 1X ONCE PO ; Start 06/23/19 at 10:30; Stop 06/23/19 at 10:31; Status DC Aspirin (Ecotrin) 81 mg DAILYWBKFT PO ; Start 06/24/19 at 08:00; Stop 06/25/19 at 18:16; Status DC Ondansetron HCl (Zofran) 4 mg PRN Q6HRS PRN IV NAUSEA/VOMITING; Start 06/24/19 at 07:00; Stop 06/25/19 at 06:59; Status DC Morphine Sulfate (Morphine Sulfate) 1 mg PRN Q10MIN PRN IV SEVERE PAIN 7-10; Start 06/24/19 at 07:00; Stop 06/24/19 at 10:06; Status DC Ringer's Solution 1,000 ml @ 30 mls/hr Q24H IV ; Start 06/24/19 at 07:00; Stop 06/24/19 at 18:59; Status DC Lidocaine HCl (Xylocaine-Mpf 1% 2ml Vial) 2 ml PRN 1X PRN ID PRIOR TO IV START; Start 06/24/19 at 07:00; Stop 06/25/19 at 06:59; Status DC Hydromorphone HCl (Dilaudid) 0.5 mg PRN Q10MIN PRN IV SEV PAIN, Second choice; Start 06/24/19 at 07:00; Stop 06/24/19 at 10:06; Status DC Info (Anti-Coagulation Monitoring By Pharmacy) 1 each PRN DAILY PRN MC SEE COMMENTS Last administered on 06/30/19at 10:17; Start 06/23/19 at 14:30; Stop 06/30/19 at 10:22; Status DC Enoxaparin Sodium (Lovenox Per Pharmacy Treatment Dosing) 1 each 1X PRN MC SEE COMMENTS; Start 06/23/19 at 14:45; Stop 06/23/19 at 21:00; Status DC Enoxaparin Sodium (Lovenox 80mg Syringe) 80 mg 1X ONCE SQ Last administered on 06/23/19at 15:16; Start 06/23/19 at 15:30; Stop 06/23/19 at 15:31; Status DC Heparin Sodium (Porcine) (Heparin Sodium) 5,000 unit Q12HR SQ Last administered on 07/04/19at 08:47; Start 06/24/19 at 11:00 Acetaminophen (Tylenol Supp) 650 mg PRN Q6HRS PRN [place] MILD PAIN / TEMP Last administered on 06/24/19at 23:03; Start 06/24/19 at 10:30; Stop 06/28/19 at 11:19; Status DC Tramadol HCl (Ultram) 25 mg PRN Q6HRS PRN PO PAIN MODERATE PAIN Last administered on 07/02/19at 12:40; Start 06/24/19 at 10:30 Ketorolac Tromethamine (Toradol 15mg Vial) 15 mg PRN Q6HRS PRN IV PAIN Last administered on 06/28/19at 17:19; Start 06/24/19 at 10:30; Stop 06/29/19 at 10:29; Status DC Sodium Chloride 1,000 ml @ 1,000 mls/hr Q1H PRN IV hypotension; Start 06/24/19 at 11:27; Stop 06/24/19 at 17:26; Status DC Sodium Chloride 1,000 ml @ 400 mls/hr Q2H30M PRN IV PATENCY; Start 06/24/19 at 11:27; Stop 06/24/19 at 23:26; Status DC Info (PHARMACY MONITORING -- do not chart) 1 each PRN DAILY PRN MC SEE COMMENTS; Start 06/24/19 at 11:30; Status Cancel Info (PHARMACY MONITORING -- do not chart) 1 each PRN DAILY PRN MC SEE COMMENTS; Start 06/24/19 at 11:30; Status UNV Vancomycin HCl 500 mg/Sodium Chloride 100 ml @ 100 mls/hr QMWF IV Last administered on 07/03/19at 16:13; Start 06/24/19 at 16:00 Dextrose (Dextrose 50%-Water Syringe) 12.5 gm PRN Q15MIN PRN IV SEE COMMENTS Last administered on 06/25/19at 01:41; Start 06/25/19 at 01:30 Dextrose 250 ml PRN Q15MIN PRN IV SEE COMMENTS; Start 06/25/19 at 01:30 Micafungin Sodium 100 mg/Dextrose 100 ml @ 100 mls/hr Q24H IV Last administered on 07/02/19at 16:45; Start 06/25/19 at 09:00; Stop 07/03/19 at 08:21; Status DC Metoprolol Tartrate (Lopressor Vial) 2.5 mg Q6HRS IVP Last administered on 06/27/19at 17:59; Start 06/25/19 at 18:00; Stop 06/28/19 at 11:19; Status DC Atorvastatin Calcium (Lipitor) 10 mg QHS PEG Last administered on 07/03/19at 21:30; Start 06/25/19 at 21:00 Ondansetron HCl (Zofran) 4 mg PRN Q6HRS PRN IV NAUSEA/VOMITING; Start 06/26/19 at 07:00; Stop 06/27/19 at 06:59; Status DC Morphine Sulfate (Morphine Sulfate) 1 mg PRN Q10MIN PRN IV SEVERE PAIN 7-10; Start 06/26/19 at 07:00; Stop 06/27/19 at 06:59; Status DC Ringer's Solution 1,000 ml @ 30 mls/hr Q24H IV ; Start 06/26/19 at 07:00; Stop 06/26/19 at 18:59; Status DC Lidocaine HCl (Xylocaine-Mpf 1% 2ml Vial) 2 ml PRN 1X PRN ID PRIOR TO IV START; Start 06/26/19 at 07:00; Stop 06/27/19 at 06:59; Status DC Hydromorphone HCl (Dilaudid) 0.5 mg PRN Q10MIN PRN IV SEV PAIN, Second choice; Start 06/26/19 at 07:00; Stop 06/27/19 at 06:59; Status DC Acetaminophen (Tylenol) 650 mg PRN Q6HRS PRN PEG MILD PAIN / TEMP Last administered on 07/02/19at 21:00; Start 06/25/19 at 18:15 Aspirin (Children'S Aspirin) 81 mg DAILYWBKFT PEG Last administered on 07/03/19at 14:09; Start 06/26/19 at 08:00; Stop 07/03/19 at 15:55; Status DC Allopurinol (Zyloprim) 100 mg DAILY PEG Last administered on 07/04/19at 08:47; Start 06/25/19 at 18:17 Quetiapine Fumarate (SEROquel) 12.5 mg PRN Q8HRS PRN PO PSYCHOTIC BEHAVIOR Last administered on 06/28/19at 20:07; Start 06/25/19 at 19:45 Vitamin A/Vitamin D (Vitamin A & D Ointment) 1 héctor PRN BID PRN TP SKIN PROTECTION Last administered on 07/02/19at 10:00; Start 06/26/19 at 06:00 Sodium Chloride 1,000 ml @ 1,000 mls/hr Q1H PRN IV hypotension; Start 06/26/19 at 12:41; Stop 06/26/19 at 18:40; Status DC Info (PHARMACY MONITORING -- do not chart) 1 each PRN DAILY PRN MC SEE COMMENTS; Start 06/26/19 at 12:45; Status UNV Info (PHARMACY MONITORING -- do not chart) 1 each PRN DAILY PRN MC SEE COMMENTS; Start 06/26/19 at 12:45; Status Cancel Sodium Chloride 1,000 ml @ 1,000 mls/hr Q1H PRN IV hypotension; Start 06/29/19 at 12:00; Stop 06/29/19 at 17:59; Status DC Sodium Chloride 1,000 ml @ 400 mls/hr Q2H30M PRN IV PATENCY; Start 06/29/19 at 12:00; Stop 06/29/19 at 23:59; Status DC Info (PHARMACY MONITORING -- do not chart) 1 each PRN DAILY PRN MC SEE COMMENTS; Start 06/29/19 at 16:00; Status UNV Info (PHARMACY MONITORING -- do not chart) 1 each PRN DAILY PRN MC SEE COMMENTS; Start 06/29/19 at 16:00; Status Cancel Info (PHARMACY MONITORING -- do not chart) 1 each PRN DAILY PRN MC SEE COMMENTS; Start 07/01/19 at 14:00; Status UNV Info (PHARMACY MONITORING -- do not chart) 1 each PRN DAILY PRN MC SEE COMMENTS; Start 07/01/19 at 14:00; Stop 07/03/19 at 07:29; Status DC Darbepoetin Chito (ARANESP for DIALYSIS PTS) 60 mcg WEEKLYHS SQ Last administered on 07/01/19at 21:48; Start 07/01/19 at 21:00 Vancomycin HCl (Vancomycin Random Level) 1 each 1X ONCE MC Last administered on 07/03/19at 06:19; Start 07/03/19 at 06:00; Stop 07/03/19 at 06:01; Status DC Lidocaine/Sodium Bicarbonate (Buffered Lidocaine 1%) 3 ml STK-MED ONCE .ROUTE ; Start 07/02/19 at 15:27; Stop 07/02/19 at 15:28; Status DC Dextrose/Sodium Chloride 1,000 ml @ 40 mls/hr Q24H IV Last administered on 07/03/19at 19:57; Start 07/02/19 at 17:00 Sodium Chloride 1,000 ml @ 1,000 mls/hr Q1H PRN IV hypotension; Start 07/03/19 at 07:18; Stop 07/03/19 at 13:17; Status DC Albumin Human 200 ml @ 200 mls/hr 1X PRN PRN IV Hypotension; Start 07/03/19 at 07:30; Stop 07/03/19 at 13:29; Status DC Acetaminophen (Tylenol) 500 mg 1X PRN PRN PO MILD PAIN / TEMP; Start 07/03/19 at 07:30; Stop 07/04/19 at 07:29; Status DC Diphenhydramine HCl (Benadryl) 25 mg 1X PRN PRN IV ITCHING; Start 07/03/19 at 07:30; Stop 07/04/19 at 07:29; Status DC Diphenhydramine HCl (Benadryl) 25 mg 1X PRN PRN IV ITCHING; Start 07/03/19 at 07:30; Stop 07/04/19 at 07:29; Status DC Sodium Chloride 1,000 ml @ 400 mls/hr Q2H30M PRN IV PATENCY; Start 07/03/19 at 07:18; Stop 07/03/19 at 19:17; Status DC Info (PHARMACY MONITORING -- do not chart) 1 each PRN DAILY PRN MC SEE COMMENTS; Start 07/03/19 at 07:30 Info (PHARMACY MONITORING -- do not chart) 1 each PRN DAILY PRN MC SEE COMMENTS; Start 07/03/19 at 07:30; Status UNV Ondansetron HCl (Zofran) 4 mg PRN Q6HRS PRN IV NAUSEA/VOMITING; Start 07/06/19 at 07:00; Stop 07/07/19 at 06:59 Morphine Sulfate (Morphine Sulfate) 1 mg PRN Q10MIN PRN IV SEVERE PAIN 7-10; Start 07/06/19 at 07:00; Stop 07/07/19 at 06:59 Ringer's Solution 1,000 ml @ 30 mls/hr Q24H IV ; Start 07/06/19 at 07:00; Stop 07/06/19 at 18:59 Lidocaine HCl (Xylocaine-Mpf 1% 2ml Vial) 2 ml PRN 1X PRN ID PRIOR TO IV START; Start 07/06/19 at 07:00; Stop 07/07/19 at 06:59 Hydromorphone HCl (Dilaudid) 0.5 mg PRN Q10MIN PRN IV SEV PAIN, Second choice; Start 07/06/19 at 07:00; Stop 07/07/19 at 06:59 Metoprolol Succinate (Toprol Xl) 12.5 mg DAILY PO Last administered on 07/04/19at 08:47; Start 07/03/19 at 16:30 Aspirin (Ecotrin) 81 mg DAILYWBKFT PO Last administered on 07/04/19at 08:47; Start 07/04/19 at 08:00 Active Scripts Active Sebastian 5-325 Tablet (Acetaminophen/Hydrocodone Bitart) 1 Each Tablet 0.5 Tab PO Q4HRS Zyvox (Linezolid) 600 Mg Tablet 600 Mg PO BID 4 Days Amox Tr-K Clv 500-125 Mg Tab (Amoxicillin/Potassium Clav) 1 Each Tablet 1 Tab PO DAILY 4 Days Tramadol Hcl 50 Mg Tablet 50 Mg PO PRN Q6HRS PRN Ondansetron Odt (Ondansetron) 4 Mg Tab.rapdis 4 Mg PO Q6HRS PRN Humalog (Insulin Lispro) 100 Unit/1 Ml Insuln.pen 0 Units SQ TIDWMEALS 30 Days BG 150-199= 1 units 200-299= 2 units 300-399= 4 units 400-499= 6 units ac tid sliding scale Reported Omeprazole 20 Mg Tablet.dr 1 Tab PO DAILY Vitamin D3 (Cholecalciferol (Vitamin D3)) 1,000 Unit Tablet 1 Tab PO DAILY Vitamin B-12 (Cyanocobalamin (Vitamin B-12)) 1,000 Mcg Tablet 1 Tab PO DAILY Senna (Sennosides) 8.6 Mg Tablet 8.6 Mg PO PRN DAILY PRN 2 tabs Renvela (Sevelamer Carbonate) 800 Mg Tablet 800 Mg PO TIDWMEALS Renal Caps Softgel (Folic Acid/Vitamin B Comp W-C) 1 Mg Capsule 1 Mg PO DAILY Reglan (Metoclopramide Hcl) 10 Mg Tablet 5 Mg PO TID Probiotic (Lactobacillus Acidophilus) 1 Each Capsule 1 Each PO BID Milk Of Magnesia (Magnesium Hydroxide) 400 Mg/5 Ml Oral.susp 400 Mg PO PRN DAILY PRN Lipitor (Atorvastatin Calcium) 40 Mg Tablet 1 Tab PO QHS Humalog (Insulin Lispro) 100 Unit/1 Ml Insuln.pen 100 Unit SQ TIDBFRMEAL 150-199=1 unit 200-299=2 units 300-399=4 units 100-499=6 units Clopidogrel (Clopidogrel Bisulfate) 75 Mg Tablet 1 Tab PO DAILY Duoneb 0.5-3(2.5) Mg/3 Ml (Albuterol/Ipratropium) 3 Ml Ampul.neb 3 Ml NEB PRN Q4HRS PRN Lac-Hydrin Five (Ammonium Lactate) 226 Gm Lotion 226 Gm TP BID Allopurinol 100 Mg Tablet 1 Tab PO DAILY Tylenol (Acetaminophen) 325 Mg Tablet 1 Tab PO PRN Q4HRS Aspirin 81 Mg Tab.chew 81 Mg PO DAILY Vitals/I & O Vital Sign - Last 24 Hours 07/03/19 07/03/19 07/03/19 07/03/19 15:00 19:00 19:57 20:00 Temp 97.5 98.0 97.5 98.0 Pulse 70 66 66 Resp 16 21 B/P (MAP) 109/60 (76) 119/63 (81) 119/63 Pulse Ox 96 97 O2 Delivery Room Air Room Air Room Air 07/03/19 07/04/19 07/04/19 07/04/19 23:41 03:00 07:00 08:00 Temp 98.1 98.0 97.5 98.1 98.0 97.5 Pulse 63 62 63 Resp 18 21 18 B/P (MAP) 107/41 (63) 98/43 (61) 114/48 (70) Pulse Ox 96 96 100 O2 Delivery Room Air Room Air Room Air Room Air 07/04/19 08:47 Pulse 63 B/P (MAP) 114/48 Intake and Output 07/03/19 07/03/19 07/04/19 15:00 23:00 07:00 Intake Total 550 ml 90 ml Output Total 50 ml Balance 550 ml 40 ml Nutrition Consultation Dietary Evaluation: Recommendations by RD: Increase Calorie Intake, Protein supplementation Comments: Continue w/dysphagia I diet w/honey thick liquids per GLASS MOULD CLEANER, recommend Magic cup supplements TID; recommend Marcell BID, thicken on unit Continue w/carlos-moses for wound healing Will re-order TF s/p PEG placement, recommend resume Nepro@goal rate 40 ml/hr w/200 ml water flushes q4 hrs or flushes per MD Expected Outcomes/Goals: New goal 06/30: TF infusion + PO intake to meet >75% est needs - met at times, goal ongoing Malnutrition Findings: Food and Nutrition Intake (Sev: <50% est energy req 5days Weight Status: Appropriate SAM OLMOS MD Jul 04, 2019 11:18
[2019-07-04 15:00] VITALS: BP 99/57
[2019-07-04] MEDS: VANCOMYCIN PER PHARMACY MC PRN (15:41)
[2019-07-04] MEDS: IV DEXTROSE 5 %-0.45 % NACL 1,000 ML IV SCH (17:29)
[2019-07-04 19:20] VITALS: BP 108/47
[2019-07-04] MEDS: ATORVASTATIN CALCIUM 10 MG TABLET. PEG SCH (21:05)
[2019-07-04 23:00] VITALS: BP_SYST 93; BP_SYST 97; BP_DIAS 42; BP_DIAS 56
[2019-07-05 03:30] VITALS: BP 108/62
[2019-07-05] MEDS: PIPERACILLIN/TAZOBACTAM 2.25 GM in IV NORMAL SALINE 50ML 50 ML IV SCH ×3 (05:53→20:35)
[2019-07-05 07:00] VITALS: BP 93/55
[2019-07-05] MEDS: INSULIN LISPRO 300 UNITS/3 ML VIAL. SQ SCH ×3 (08:00→17:00)
--- NOTE | 2019-07-05 08:52 | PDOC ---
Infectious Disease Note Subjective Subjective Uneventful night No fevers last 24 hours Vital Sign Vital Signs Vital Signs Date Time Temp Pulse Resp B/P (MAP) Pulse Ox O2 Delivery O2 Flow Rate FiO2 07/05/19 07:00 97.3 61 20 93/55 (68) 99 Room Air 97.3 Physical Exam PHYSICAL EXAM GENERAL: Resting quietly LUNGS: Clear bilaterally. HEART: S1, S2. regular ABDOMEN: Soft : Finley EXTREMITIES: Right below knee amputation. Left lower extremity amputation stump has a wound vac in place. SKIN: warm to touch DRY YARD WORKER: Arouses to voice RIJ (07/02) clean Labs Lab Laboratory Tests Test 07/04/19 11:57 07/04/19 16:50 07/04/19 20:59 07/05/19 07:55 Glucose (Fingerstick) 219 mg/dL (70-99) 192 mg/dL (70-99) 184 mg/dL (70-99) 127 mg/dL (70-99) Micro 06/22-. URINE CULTURE RES 1 Final Yeast isolated. Objective Assessment Urinary tract infection. No leukocyte esterase or nitrite done. Not done again on repeat UA 06/24. urine had pus like appearance when Finley placement was attempted, yeast on uc likely colonization Finley now in place - cults neg Altered mental status, likely multifactorial. 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 Low-grade fevers - better Leukocytosis - improved - C-diff neg Anemia of chronic disease. Severe protein-calorie malnutrition per speech no aspiration but slow to swallow and not able to maintain adequate po Chronic atrial fibrillation. High troponin with working diagnosis of non-STEMI. Chronic sacral wound, superficial. Yeast in groin. treated Dysphagia on ngt h/o Enterobacter aerogenes, VRE, MSSA wound infection Plan Plan of Care Continue Vanc and Zosyn, renal dosing Random vanc trough 19.5 Off micafungin sed rate >130 Wound care per vascular, may need debridement, awaiting f/u Maintain aspiration precautions PEG placement Saturday Palliative consulted - aggressive measures continuing D/w nursing Attending Co-Sign The patient was seen and interviewed as well as examined at the bedside. The chart was reviewed. The case was discussed. Agree with the plan of care. KALIN ORELLANA APRN Jul 05, 2019 08:52 KELI MOLINA MD Jul 05, 2019 10:42
[2019-07-05] MEDS: FOLIC/VIT B COMP W-C (RENAL) TABLET. PO SCH (09:21)
[2019-07-05] MEDS: CYANOCOBALAMIN (VITAMIN B-12) 1,000 MCG TABLET. PO SCH (09:21)
[2019-07-05] MEDS: ALLOPURINOL 100 MG TABLET. PEG SCH (09:21)
[2019-07-05] MEDS: PANTOPRAZOLE 40 MG TABLET.DR. PO SCH (09:21)
[2019-07-05] MEDS: ASPIRIN ENTERIC COATED 81 MG TABLET.DR. PO SCH (09:21)
[2019-07-05] MEDS: METOPROLOL SUCC 24HR ER 25 MG TAB.ER.24H. PO SCH (09:22)
[2019-07-05] MEDS: HEPARIN for SUB-Q USE 5,000 UNIT/ML VIAL. SQ SCH ×2 (09:30→20:42)
[2019-07-05] MEDS: QUEtiapine 25 MG TABLET. PO PRN ×2 (10:20→20:35)
[2019-07-05 11:00] VITALS: BP 101/43
--- NOTE | 2019-07-05 12:14 | PDOC ---
PROGRESS NOTES Subjective Subjective sleepng and awoke to say a few words and went back to sleep. discussed with his nurse. Objective Objective Vital Signs Date Time Temp Pulse Resp B/P (MAP) Pulse Ox O2 Delivery O2 Flow Rate FiO2 07/05/19 11:00 98.0 59 20 101/43 (62) 98 Room Air 98.0 Intake and Output 07/05/19 07:00 Intake Total 1080 ml Output Total 25 ml Balance 1055 ml Intake Oral 600 ml IV Total 480 ml Output Urine Total 25 ml # Bowel Movements 2 Physical Exam Abdomen: Soft Heart: Regular rate, Normal S1, Normal S2 Extremities: Other (bilateral BKA with left BKA stump wound vac) General: Other (sleepy) HEENT: Atraumatic Lungs: Clear to auscultation Neuro: Normal speech Psych/Mental Status: Mood NL Skin: No rashes Assessment Assessment Problemsms metabolic encephalopathy. better 2. 3. Bilateral below-knee amputation. 4. left below-knee amputation stump wound infection 5. Diabetes mellitus type 2. 6. Peripheral arterial disease. 7. End-stage renal disease, on hemodialysis. m-w-f 8. paroxysmal atrial fibrillation. in nsr. not a coumadin candidate. recent hx of retroperitoneal bleed on anticoagulants and fall risk. 9. Severe protein-calorie malnutrition. 10. Anemia of chronic disease. NSTEMI oropharyngeal dysphagia on HTL pureed Medical Problems: (1) Altered mental status Status: Acute (2) Anemia in chronic illness Status: Chronic (3) CAD (coronary artery disease) Status: Chronic (4) Chronic a-fib Status: Chronic (5) DM2 (diabetes mellitus, type 2) Status: Chronic (6) ESRD (end stage renal disease) Status: Acute (7) HTN (hypertension) Status: Chronic (8) Metabolic encephalopathy Status: Acute (9) NSTEMI (non-ST elevated myocardial infarction) Status: Acute (10) Paroxysmal A-fib Status: Acute (11) Peripheral artery disease Status: Chronic (12) Severe protein-calorie malnutrition Status: Chronic (13) SSS (sick sinus syndrome) Status: Chronic (14) UTI (urinary tract infection) Status: Acute Plan Plan of Care hemodialysis tomorrow PEG placement wound debridement Comment Review of Relevant I have reviewed the following items soumya (where applicable) has been applied. Labs Laboratory Tests Test 07/03/19 17:32 9/20/19 21:20 07/04/19 07:52 07/04/19 11:57 Glucose (Fingerstick) 185 mg/dL (70-99) 144 mg/dL (70-99) 128 mg/dL (70-99) 219 mg/dL (70-99) Test 07/04/19 16:50 07/04/19 20:59 07/05/19 07:55 Glucose (Fingerstick) 192 mg/dL (70-99) 184 mg/dL (70-99) 127 mg/dL (70-99) Laboratory Tests Test 07/04/19 16:50 07/04/19 20:59 07/05/19 07:55 Glucose (Fingerstick) 192 mg/dL (70-99) 184 mg/dL (70-99) 127 mg/dL (70-99) Microbiology 06/23/19 Urine Culture - Final, Complete 06/23/19 Urine Culture Result 1 (TEREZA) - Final, Complete 06/22/19 Blood Culture - Final, Complete NO GROWTH AFTER 5 DAYS Medications Current Medications Vancomycin HCl 250 ml @ 250 mls/hr 1X ONCE IV ; Start 06/22/19 at 10:45; Stop 06/22/19 at 11:44; Status UNV Piperacillin Sod/ Tazobactam Sod 2.25 gm/Sodium Chloride 50 ml @ 100 mls/hr 1X ONCE IV Last administered on 06/22/19at 11:55; Start 06/22/19 at 10:45; Stop 06/22/19 at 11:14; Status DC Sodium Chloride 1,000 ml @ 100 mls/hr Q10H IV Last administered on 06/22/19at 11:55; Start 06/22/19 at 10:38; Stop 06/22/19 at 20:37; Status DC Vancomycin HCl 2 gm/Sodium Chloride 500 ml @ 250 mls/hr 1X ONCE IV Last administered on 06/22/19at 12:32; Start 06/22/19 at 11:30; Stop 06/22/19 at 13:29; Status DC Info (PHARMACY MONITORING -- do not chart) 1 each PRN DAILY PRN MC SEE COMMENTS; Start 06/22/19 at 16:30; Stop 06/24/19 at 11:38; Status DC Info (PHARMACY MONITORING -- do not chart) 1 each PRN DAILY PRN MC SEE COMMENTS; Start 06/22/19 at 16:30; Status UNV Sodium Chloride 1,000 ml @ 40 mls/hr Q24H IV Last administered on 06/24/19at 18:31; Start 06/22/19 at 17:30; Stop 06/25/19 at 19:44; Status DC Vancomycin HCl (Vanco Per Pharmacy) 1 each PRN DAILY PRN MC SEE COMMENTS Last administered on 07/04/19at 15:41; Start 06/22/19 at 17:30 Piperacillin Sod/ Tazobactam Sod (Zosyn Per Pharmacy) 1 each PRN DAILY PRN MC SEE COMMENTS; Start 06/22/19 at 17:30 Acetaminophen (Tylenol) 650 mg PRN Q6HRS PRN PO MILD PAIN / TEMP; Start 06/22/19 at 17:30; Stop 06/25/19 at 18:15; Status DC Ondansetron HCl (Zofran) 4 mg PRN Q6HRS PRN IV NAUSEA/VOMITING; Start 06/22/19 at 17:30 Clopidogrel Bisulfate (Plavix) 75 mg DAILYWBKFT PO Last administered on 07/02/19at 10:00; Start 06/23/19 at 08:00; Stop 07/02/19 at 14:26; Status DC Vitamin B Complex/ Vitamin C (Carlos-Moses) 1 tab DAILY PO Last administered on 07/05/19at 09:30; Start 06/23/19 at 09:00 Allopurinol (Zyloprim) 100 mg DAILY PO ; Start 06/23/19 at 09:00; Stop 06/25/19 at 18:17; Status DC Atorvastatin Calcium (Lipitor) 40 mg QHS PO Last administered on 06/22/19at 21:37; Start 06/22/19 at 21:00; Stop 06/25/19 at 12:19; Status DC Pantoprazole Sodium (Protonix) 40 mg DAILYAC PO Last administered on 07/05/19at 09:30; Start 06/23/19 at 07:30 Cyanocobalamin (Vitamin B-12) 1,000 mcg DAILY PO Last administered on 07/05/19at 09:30; Start 06/23/19 at 09:00 Piperacillin Sod/ Tazobactam Sod 2.25 gm/Sodium Chloride 50 ml @ 100 mls/hr Q8HRS IV Last administered on 07/05/19at 05:54; Start 06/22/19 at 21:00 Heparin Sodium (Porcine) (Heparin Sodium) 5,000 unit BID SQ Last administered on 06/22/19at 21:37; Start 06/22/19 at 21:00; Stop 06/23/19 at 08:23; Status DC Insulin Human Lispro (HumaLOG) 0-6 UNITS BG 400-49... TIDWMEALS SQ Last administered on 07/04/19at 12:13; Start 06/23/19 at 08:00 Vancomycin HCl (Vancomycin Random Level) 1 each 1X ONCE MC Last administered on 06/24/19at 06:37; Start 06/24/19 at 06:00; Stop 06/24/19 at 06:01; Status DC Heparin Sodium/ Dextrose 500 ml @ 19.3 mls/hr CONT PRN IV SEE I/O RECORD; Start 06/23/19 at 08:30; Stop 06/23/19 at 14:53; Status DC Heparin Sodium (Porcine) (Heparin Sodium) 2,000 unit PRN Q6HRS PRN IV FOR UFH LEVEL LESS THAN 0.2; Start 06/23/19 at 08:30; Stop 06/23/19 at 14:53; Status DC Aspirin (Ecotrin) 325 mg 1X ONCE PO ; Start 06/23/19 at 10:30; Stop 06/23/19 at 10:31; Status DC Aspirin (Ecotrin) 81 mg DAILYWBKFT PO ; Start 06/24/19 at 08:00; Stop 06/25/19 at 18:16; Status DC Ondansetron HCl (Zofran) 4 mg PRN Q6HRS PRN IV NAUSEA/VOMITING; Start 06/24/19 at 07:00; Stop 06/25/19 at 06:59; Status DC Morphine Sulfate (Morphine Sulfate) 1 mg PRN Q10MIN PRN IV SEVERE PAIN 7-10; Start 06/24/19 at 07:00; Stop 06/24/19 at 10:06; Status DC Ringer's Solution 1,000 ml @ 30 mls/hr Q24H IV ; Start 06/24/19 at 07:00; Stop 06/24/19 at 18:59; Status DC Lidocaine HCl (Xylocaine-Mpf 1% 2ml Vial) 2 ml PRN 1X PRN ID PRIOR TO IV START; Start 06/24/19 at 07:00; Stop 06/25/19 at 06:59; Status DC Hydromorphone HCl (Dilaudid) 0.5 mg PRN Q10MIN PRN IV SEV PAIN, Second choice; Start 06/24/19 at 07:00; Stop 06/24/19 at 10:06; Status DC Info (Anti-Coagulation Monitoring By Pharmacy) 1 each PRN DAILY PRN MC SEE COMMENTS Last administered on 06/30/19at 10:17; Start 06/23/19 at 14:30; Stop 06/30/19 at 10:22; Status DC Enoxaparin Sodium (Lovenox Per Pharmacy Treatment Dosing) 1 each 1X PRN MC SEE COMMENTS; Start 06/23/19 at 14:45; Stop 06/23/19 at 21:00; Status DC Enoxaparin Sodium (Lovenox 80mg Syringe) 80 mg 1X ONCE SQ Last administered on 06/23/19at 15:16; Start 06/23/19 at 15:30; Stop 06/23/19 at 15:31; Status DC Heparin Sodium (Porcine) (Heparin Sodium) 5,000 unit Q12HR SQ Last administered on 07/05/19at 09:30; Start 06/24/19 at 11:00 Acetaminophen (Tylenol Supp) 650 mg PRN Q6HRS PRN OK MILD PAIN / TEMP Last administered on 06/24/19at 23:03; Start 06/24/19 at 10:30; Stop 06/28/19 at 11:19; Status DC Tramadol HCl (Ultram) 25 mg PRN Q6HRS PRN PO PAIN MODERATE PAIN Last administered on 07/02/19at 12:40; Start 06/24/19 at 10:30 Ketorolac Tromethamine (Toradol 15mg Vial) 15 mg PRN Q6HRS PRN IV PAIN Last administered on 06/28/19at 17:19; Start 06/24/19 at 10:30; Stop 06/29/19 at 10:29; Status DC Sodium Chloride 1,000 ml @ 1,000 mls/hr Q1H PRN IV hypotension; Start 06/24/19 at 11:27; Stop 06/24/19 at 17:26; Status DC Sodium Chloride 1,000 ml @ 400 mls/hr Q2H30M PRN IV PATENCY; Start 06/24/19 at 11:27; Stop 06/24/19 at 23:26; Status DC Info (PHARMACY MONITORING -- do not chart) 1 each PRN DAILY PRN MC SEE COMMENTS; Start 06/24/19 at 11:30; Status Cancel Info (PHARMACY MONITORING -- do not chart) 1 each PRN DAILY PRN MC SEE COMMENTS; Start 06/24/19 at 11:30; Status UNV Vancomycin HCl 500 mg/Sodium Chloride 100 ml @ 100 mls/hr QMWF IV Last administered on 07/03/19at 16:13; Start 06/24/19 at 16:00 Dextrose (Dextrose 50%-Water Syringe) 12.5 gm PRN Q15MIN PRN IV SEE COMMENTS Last administered on 06/25/19at 01:41; Start 06/25/19 at 01:30 Dextrose 250 ml PRN Q15MIN PRN IV SEE COMMENTS; Start 06/25/19 at 01:30 Micafungin Sodium 100 mg/Dextrose 100 ml @ 100 mls/hr Q24H IV Last administered on 07/02/19at 16:45; Start 06/25/19 at 09:00; Stop 07/03/19 at 08:21; Status DC Metoprolol Tartrate (Lopressor Vial) 2.5 mg Q6HRS IVP Last administered on at 17:59; Start 06/25/19 at 18:00; Stop 06/28/19 at 11:19; Status DC Atorvastatin Calcium (Lipitor) 10 mg QHS PEG Last administered on 07/04/19at 21:09; Start 06/25/19 at 21:00 Ondansetron HCl (Zofran) 4 mg PRN Q6HRS PRN IV NAUSEA/VOMITING; Start 06/26/19 at 07:00; Stop 06/27/19 at 06:59; Status DC Morphine Sulfate (Morphine Sulfate) 1 mg PRN Q10MIN PRN IV SEVERE PAIN 7-10; Start 06/26/19 at 07:00; Stop 06/27/19 at 06:59; Status DC Ringer's Solution 1,000 ml @ 30 mls/hr Q24H IV ; Start 06/26/19 at 07:00; Stop 06/26/19 at 18:59; Status DC Lidocaine HCl (Xylocaine-Mpf 1% 2ml Vial) 2 ml PRN 1X PRN ID PRIOR TO IV START; Start 06/26/19 at 07:00; Stop 06/27/19 at 06:59; Status DC Hydromorphone HCl (Dilaudid) 0.5 mg PRN Q10MIN PRN IV SEV PAIN, Second choice; Start 06/26/19 at 07:00; Stop 06/27/19 at 06:59; Status DC Acetaminophen (Tylenol) 650 mg PRN Q6HRS PRN PEG MILD PAIN / TEMP Last administered on 07/02/19at 21:00; Start 06/25/19 at 18:15 Aspirin (Children'S Aspirin) 81 mg DAILYWBKFT PEG Last administered on 07/03/19at 14:09; Start 06/26/19 at 08:00; Stop 07/03/19 at 15:55; Status DC Allopurinol (Zyloprim) 100 mg DAILY PEG Last administered on 07/05/19at 09:30; Start 06/25/19 at 18:17 Quetiapine Fumarate (SEROquel) 12.5 mg PRN Q8HRS PRN PO PSYCHOTIC BEHAVIOR Last administered on 07/05/19at 10:22; Start 06/25/19 at 19:45 Vitamin A/Vitamin D (Vitamin A & D Ointment) 1 héctor PRN BID PRN TP SKIN PROTECTION Last administered on 07/02/19at 10:00; Start 06/26/19 at 06:00 Sodium Chloride 1,000 ml @ 1,000 mls/hr Q1H PRN IV hypotension; Start 06/26/19 at 12:41; Stop 06/26/19 at 18:40; Status DC Info (PHARMACY MONITORING -- do not chart) 1 each PRN DAILY PRN MC SEE COMMENTS; Start 06/26/19 at 12:45; Status UNV Info (PHARMACY MONITORING -- do not chart) 1 each PRN DAILY PRN MC SEE COMMENTS; Start 06/26/19 at 12:45; Status Cancel Sodium Chloride 1,000 ml @ 1,000 mls/hr Q1H PRN IV hypotension; Start 06/29/19 at 12:00; Stop 06/29/19 at 17:59; Status DC Sodium Chloride 1,000 ml @ 400 mls/hr Q2H30M PRN IV PATENCY; Start 06/29/19 at 12:00; Stop 06/29/19 at 23:59; Status DC Info (PHARMACY MONITORING -- do not chart) 1 each PRN DAILY PRN MC SEE COMMENTS; Start 06/29/19 at 16:00; Status UNV Info (PHARMACY MONITORING -- do not chart) 1 each PRN DAILY PRN MC SEE COMMENTS; Start 06/29/19 at 16:00; Status Cancel Info (PHARMACY MONITORING -- do not chart) 1 each PRN DAILY PRN MC SEE COMM ENTS; Start 07/01/19 at 14:00; Status UNV Info (PHARMACY MONITORING -- do not chart) 1 each PRN DAILY PRN MC SEE COMMENTS; Start 07/01/19 at 14:00; Stop 07/03/19 at 07:29; Status DC Darbepoetin Chito (ARANESP for DIALYSIS PTS) 60 mcg WEEKLYHS SQ Last ad ministered on 07/01/19at 21:48; Start 07/01/19 at 21:00 Vancomycin HCl (Vancomycin Random Level) 1 each 1X ONCE MC Last administered on 07/03/19at 06:19; Start 07/03/19 at 06:00; Stop 07/03/19 at 06:01; Status DC Lidocaine/Sodium Bicarbonate (Buffered Lidocaine 1%) 3 ml STK-MED ONCE .ROUTE ; Start 07/02/19 at 15:27; Stop 07/02/19 at 15:28; Status DC Dextrose/Sodium Chloride 1,000 ml @ 40 mls/hr Q24H IV Last administered on 07/04/19at 17:29; Start 07/02/19 at 17:00 Sodium Chloride 1,000 ml @ 1,000 mls/hr Q1H PRN IV hypotension; Start 07/03/19 at 07:18; Stop 07/03/19 at 13:17; Status DC Albumin Human 200 ml @ 200 mls/hr 1X PRN PRN IV Hypotension; Start 07/03/19 at 07:30; Stop 07/03/19 at 13:29; Status DC Acetaminophen (Tylenol) 500 mg 1X PRN PRN PO MILD PAIN / TEMP; Start 07/03/19 at 07:30; Stop 07/04/19 at 07:29; Status DC Diphenhydramine HCl (Benadryl) 25 mg 1X PRN PRN IV ITCHING; Start 07/03/19 at 07:30; Stop 07/04/19 at 07:29; Status DC Diphenhydramine HCl (Benadryl) 25 mg 1X PRN PRN IV ITCHING; Start 07/03/19 at 07:30; Stop 07/04/19 at 07:29; Status DC Sodium Chloride 1,000 ml @ 400 mls/hr Q2H30M PRN IV PATENCY; Start 07/03/19 at 07:18; Stop 07/03/19 at 19:17; Status DC Info (PHARMACY MONITORING -- do not chart) 1 each PRN DAILY PRN MC SEE COMMENTS; Start 07/03/19 at 07:30 Info (PHARMACY MONITORING -- do not chart) 1 each PRN DAILY PRN MC SEE COMMENTS; Start 07/03/19 at 07:30; Status UNV Ondansetron HCl (Zofran) 4 mg PRN Q6HRS PRN IV NAUSEA/VOMITING; Start 07/06/19 at 07:00; Stop 07/07/19 at 06:59 Morphine Sulfate (Morphine Sulfate) 1 mg PRN Q10MIN PRN IV SEVERE PAIN 7-10; Start 07/06/19 at 07:00; Stop 07/07/19 at 06:59 Ringer's Solution 1,000 ml @ 30 mls/hr Q24H IV ; Start 07/06/19 at 07:00; Stop 07/06/19 at 18:59 Lidocaine HCl (Xylocaine-Mpf 1% 2ml Vial) 2 ml PRN 1X PRN ID PRIOR TO IV START; Start 07/06/19 at 07:00; Stop 07/07/19 at 06:59 Hydromorphone HCl (Dilaudid) 0.5 mg PRN Q10MIN PRN IV SEV PAIN, Second choice; Start 07/06/19 at 07:00; Stop 07/07/19 at 06:59 Metoprolol Succinate (Toprol Xl) 12.5 mg DAILY PO Last administered on 07/05/19at 09:30; Start 07/03/19 at 16:30 Aspirin (Ecotrin) 81 mg DAILYWBKFT PO Last administered on 07/05/19at 09:30; Start 07/04/19 at 08:00 Active Scripts Active [place] 5-325 Tablet (Acetaminophen/Hydrocodone Bitart) 1 Each Tablet 0.5 Tab PO Q4HRS Zyvox (Linezolid) 600 Mg Tablet 600 Mg PO BID 4 Days Amox Tr-K Clv 500-125 Mg Tab (Amoxicillin/Potassium Clav) 1 Each Tablet 1 Tab PO DAILY 4 Days Tramadol Hcl 50 Mg Tablet 50 Mg PO PRN Q6HRS PRN Ondansetron Odt (Ondansetron) 4 Mg Tab.rapdis 4 Mg PO Q6HRS PRN Humalog (Insulin Lispro) 100 Unit/1 Ml Insuln.pen 0 Units SQ TIDWMEALS 30 Days BG 150-199= 1 units 200-299= 2 units 300-399= 4 units 400-499= 6 units ac tid sliding scale Reported Omeprazole 20 Mg Tablet.dr 1 Tab PO DAILY Vitamin D3 (Cholecalciferol (Vitamin D3)) 1,000 Unit Tablet 1 Tab PO DAILY Vitamin B-12 (Cyanocobalamin (Vitamin B-12)) 1,000 Mcg Tablet 1 Tab PO DAILY Senna (Sennosides) 8.6 Mg Tablet 8.6 Mg PO PRN DAILY PRN 2 tabs Renvela (Sevelamer Carbonate) 800 Mg Tablet 800 Mg PO TIDWMEALS Renal Caps Softgel (Folic Acid/Vitamin B Comp W-C) 1 Mg Capsule 1 Mg PO DAILY Reglan (Metoclopramide Hcl) 10 Mg Tablet 5 Mg PO TID Probiotic (Lactobacillus Acidophilus) 1 Each Capsule 1 Each PO BID Milk Of Magnesia (Magnesium Hydroxide) 400 Mg/5 Ml Oral.susp 400 Mg PO PRN DAILY PRN Lipitor (Atorvastatin Calcium) 40 Mg Tablet 1 Tab PO QHS Humalog (Insulin Lispro) 100 Unit/1 Ml Insuln.pen 100 Unit SQ TIDBFRMEAL 150-199=1 unit 200-299=2 units 300-399=4 units 100-499=6 units Clopidogrel (Clopidogrel Bisulfate) 75 Mg Tablet 1 Tab PO DAILY Duoneb 0.5-3(2.5) Mg/3 Ml (Albuterol/Ipratropium) 3 Ml Ampul.neb 3 Ml NEB PRN Q4HRS PRN Lac-Hydrin Five (Ammonium Lactate) 226 Gm Lotion 226 Gm TP BID Allopurinol 100 Mg Tablet 1 Tab PO DAILY Tylenol (Acetaminophen) 325 Mg Tablet 1 Tab PO PRN Q4HRS Aspirin 81 Mg Tab.chew 81 Mg PO DAILY Vitals/I & O Vital Sign - Last 24 Hours 07/04/19 07/04/19 07/04/19 07/04/19 15:00 19:11 19:20 23:00 Temp 97.4 97.8 98.1 97.4 97.8 98.1 Pulse 63 60 61 Resp 20 22 B/P (MAP) 99/57 (71) 108/47 (67) 97/42 (60) Pulse Ox 99 91 94 O2 Delivery Room Air Room Air Room Air Room Air 07/05/19 07/05/19 07/05/19 07/05/19 03:30 07:00 08:00 09:30 Temp 98.1 97.3 98.1 97.3 Pulse 59 61 61 Resp 20 20 B/P (MAP) 108/62 (77) 93/55 (68) 93/55 Pulse Ox 92 99 O2 Delivery Room Air Room Air Room Air 07/05/19 11:00 Temp 98.0 98.0 Pulse 59 Resp 20 B/P (MAP) 101/43 (62) Pulse Ox 98 O2 Delivery Room Air Intake and Output 07/04/19 07/04/19 07/05/19 15:00 23:00 07:00 Intake Total 920 ml 100 ml 60 ml Output Total 25 ml Balance 920 ml 75 ml 60 ml Nutrition Consultation Dietary Evaluation: Recommendations by RD: Increase Calorie Intake, Protein supplementation Comments: Continue w/dysphagia I diet w/honey thick liquids per FLOOR SANDER, recommend Magic cup supplements TID; recommend Marcell BID, thicken on unit Continue w/carlos-moses for wound healing Will re-order TF s/p PEG placement, recommend resume Nepro@goal rate 40 ml/hr w/200 ml water flushes q4 hrs or flushes per MD Expected Outcomes/Goals: New goal 06/30: TF infusion + PO intake to meet >75% est needs - met at times, goal ongoing Malnutrition Findings: Food and Nutrition Intake (Sev: <50% est energy req 5days Weight Status: Appropriate SAM OLMOS MD Jul 05, 2019 12:13
[2019-07-05] MEDS: VANCOMYCIN PER PHARMACY MC PRN (13:34)
[2019-07-05 15:00] VITALS: BP 110/63
[2019-07-05] MEDS: IV DEXTROSE 5 %-0.45 % NACL 1,000 ML IV SCH (16:21)
[2019-07-05 19:49] VITALS: BP 110/55
[2019-07-05] MEDS: ATORVASTATIN CALCIUM 10 MG TABLET. PEG SCH (20:35)
[2019-07-05 23:23] VITALS: BP 117/46
[2019-07-06 03:45] VITALS: BP 96/44
[2019-07-06] MEDS: PIPERACILLIN/TAZOBACTAM 2.25 GM in IV NORMAL SALINE 50ML 50 ML IV SCH ×3 (05:40→20:46)
[2019-07-06 06:05] LABS: BASO # 0.1 x10^3/uL (0.0-0.2); BASO % 1 % (0-3); EOS # 0.6 x10^3/uL (0.0-0.7); EOS % 8 % (0-3); HEMATOCRIT 26.7 % (39.0-53.0); HEMOGLOBIN 8.8 g/dL (13.0-17.5); LYMPH # 1.4 x10^3/uL (1.0-4.8); LYMPH % 21 % (24-48); MEAN CORPUSCULAR HEMOGLOBIN 28 pg (25-35); MEAN CORPUSCULAR HGB CONC 33 g/dL (31-37); MEAN CORPUSCULAR VOLUME 86 fL (79-100); MONO # 0.8 x10^3/uL (0.0-1.1); MONO % 11 % (0-9); NEUT # 4.2 x10^3/uL (1.8-7.7); NEUT % 60 % (31-73); PLATELET COUNT 336 x10^3/uL (140-400); RED BLOOD COUNT 3.09 x10^6/uL (4.30-5.70); RED CELL DISTRIBUTION WIDTH 18.7 % (11.5-14.5); WHITE BLOOD COUNT 7.1 x10^3/uL (4.0-11.0)
[2019-07-06 06:11] LABS: CREATININE 5.8 mg/dL (0.7-1.3); GFR 11.5; POTASSIUM 3.9 mmol/L (3.5-5.1)
[2019-07-06 06:32] LABS: PROTHROMBIN TIME PATIENT 16.7 SEC (11.7-14.0)
[2019-07-06] MEDS ORDERED: LIDOCAINE 1% PF 2 ML VIAL. ID PRN (07:00)
[2019-07-06] MEDS ORDERED: ONDANSETRON PF 4 MG/2 ML VIAL. IV PRN (07:00)
[2019-07-06] MEDS ORDERED: IV RINGERS,LACTATED 1000ML 1,000 ML IV SCH (07:00)
[2019-07-06] MEDS ORDERED: MORPHINE SULFATE 2 MG/ML VIAL. IV PRN (07:00)
[2019-07-06] MEDS ORDERED: HYDROmorphone 2 MG/ML VIAL IV PRN (07:00)
[2019-07-06 07:45] VITALS: BP 128/64
[2019-07-06] MEDS: INSULIN LISPRO 300 UNITS/3 ML VIAL. SQ SCH ×3 (08:00→17:00)
--- NOTE | 2019-07-06 08:43 | PDOC ---
Infectious Disease Note Subjective Subjective Uneventful night No fevers last 24 hours pt is going for PEG ROS ROS no n/v/d/sob Vital Sign Vital Signs Vital Signs Date Time Temp Pulse Resp B/P (MAP) Pulse Ox O2 Delivery O2 Flow Rate FiO2 07/06/19 07:45 97.5 62 20 128/64 (85) 97 Room Air 97.5 Physical Exam PHYSICAL EXAM GENERAL: Resting quietly LUNGS: Clear bilaterally. HEART: S1, S2. regular ABDOMEN: Soft : Finley EXTREMITIES: Right below knee amputation. Left lower extremity amputation stump has a wound vac in place. SKIN: warm to touch LAMPS TESTER AND INSPECTOR: Arouses to voice RIJ (07/02) clean Labs Lab Laboratory Tests Test 07/05/19 12:01 07/05/19 17:12 07/05/19 20:23 07/06/19 05:40 Glucose (Fingerstick) 242 mg/dL (70-99) 153 mg/dL (70-99) 121 mg/dL (70-99) White Blood Count 7.1 x10^3/uL (4.0-11.0) Red Blood Count 3.09 x10^6/uL (4.30-5.70) Hemoglobin 8.8 g/dL (13.0-17.5) Hematocrit 26.7 % (39.0-53.0) Mean Corpuscular Volume 86 fL (79-100) Mean Corpuscular Hemoglobin 28 pg (25-35) Mean Corpuscular Hemoglobin Concent 33 g/dL (31-37) Red Cell Distribution Width 18.7 % (11.5-14.5) Platelet Count 336 x10^3/uL (140-400) Neutrophils (%) (Auto) 60 % (31-73) Lymphocytes (%) (Auto) 21 % (24-48) Monocytes (%) (Auto) 11 % (0-9) Eosinophils (%) (Auto) 8 % (0-3) Basophils (%) (Auto) 1 % (0-3) Neutrophils # (Auto) 4.2 x10^3/uL (1.8-7.7) Lymphocytes # (Auto) 1.4 x10^3/uL (1.0-4.8) Monocytes # (Auto) 0.8 x10^3/uL (0.0-1.1) Eosinophils # (Auto) 0.6 x10^3/uL (0.0-0.7) Basophils # (Auto) 0.1 x10^3/uL (0.0-0.2) Prothrombin Time 16.7 SEC (11.7-14.0) Prothromb Time International Ratio 1.4 (0.8-1.1) Sodium Level 138 mmol/L (136-145) Potassium Level 3.9 mmol/L (3.5-5.1) Chloride Level 100 mmol/L (98-107) Carbon Dioxide Level 28 mmol/L (21-32) Anion Gap 10 (6-14) Blood Urea Nitrogen 32 mg/dL (8-26) Creatinine 5.8 mg/dL (0.7-1.3) Estimated GFR (Cockcroft-Gault) 11.5 Glucose Level 109 mg/dL (70-99) Calcium Level 9.0 mg/dL (8.5-10.1) Micro Microbiology 06/23/19 Urine Culture - Final, Complete 06/23/19 Urine Culture Result 1 (TEREZA) - Final, Complete 06/22/19 Blood Culture - Final, Complete NO GROWTH AFTER 5 DAYS Objective Assessment Urinary tract infection. No leukocyte esterase or nitrite done. Not done again on repeat UA 06/24. urine had pus like appearance when Finley placement was attempted, yeast on uc likely colonization Finley now in place - cults neg Altered mental status, likely multifactorial. 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 Low-grade fevers - better Leukocytosis - improved - C-diff neg Anemia of chronic disease. Severe protein-calorie malnutrition per speech no aspiration but slow to swallow and not able to maintain adequate po Chronic atrial fibrillation. High troponin with working diagnosis of non-STEMI. Chronic sacral wound, superficial. Yeast in groin. treated Dysphagia on ngt h/o Enterobacter aerogenes, VRE, MSSA wound infection Plan Plan of Care Continue Vanc and Zosyn, renal dosing Random vanc trough 19.5 Off micafungin sed rate >130 Wound care per vascular, may need debridement, awaiting f/u Maintain aspiration precautions PEG placement Saturday Palliative consulted - aggressive measures continuing D/w nursing KELI MOLINA MD Jul 06, 2019 08:43
[2019-07-06] MEDS: HEPARIN for SUB-Q USE 5,000 UNIT/ML VIAL. SQ SCH ×2 (09:00→19:54)
--- NOTE | 2019-07-06 10:11 | PDOC ---
PROGRESS NOTES Assessment Problems Medical Problems: (1) Altered mental status Status: Acute (2) Anemia in chronic illness Status: Chronic (3) CAD (coronary artery disease) Status: Chronic (4) Chronic a-fib Status: Chronic (5) DM2 (diabetes mellitus, type 2) Status: Chronic (6) ESRD (end stage renal disease) Status: Acute (7) HTN (hypertension) Status: Chronic (8) Metabolic encephalopathy Status: Acute (9) NSTEMI (non-ST elevated myocardial infarction) Status: Acute (10) Paroxysmal A-fib Status: Acute (11) Peripheral artery disease Status: Chronic (12) Severe protein-calorie malnutrition Status: Chronic (13) SSS (sick sinus syndrome) Status: Chronic (14) UTI (urinary tract infection) Status: Acute Metabolic encephalopathy with probable underlying dementia, related to urinary tract infection and leg wounds, no evidence of primary central nervous system infection, new stroke, or ongoing seizure activity. Has NSTEMI. MRI negative for acute stroke. He is declining Note that he has elevated troponin and ESR Dysphagia improved, but still has Dobb[place], note plans for PEG today Plan Treat medical diseases No additional neurological studies needed. Subjective Denies pain Objective Vital Signs Date Time Temp Pulse Resp B/P (MAP) Pulse Ox O2 Delivery O2 Flow Rate FiO2 07/06/19 07:45 97.5 62 20 128/64 (85) 97 Room Air 97.5 Intake and Output 07/06/19 06:59 Intake Total 150 ml Output Total 30 ml Balance 120 ml Intake Oral 50 ml IV Total 100 ml Output Urine Total 30 ml # Bowel Movements 1 PHYSICAL EXAM Alert, follows commands,oriented to person, knows location, not date PERRL. EOMI. CN: no focal findings. Muscle tone: normal. Muscle strength: 4/5 DTR: 0-1+ Plantar reflex: Bilateral below the knee amputations Gait: not examined in bed. Sensory exam: no abnormal findings. No cerebellar signs elicited. Review of Relevant I have reviewed the following items soumya (where applicable) has been applied. Labs Laboratory Tests Test 07/04/19 11:57 07/04/19 16:50 07/04/19 20:59 07/05/19 07:55 Glucose (Fingerstick) 219 mg/dL (70-99) 192 mg/dL (70-99) 184 mg/dL (70-99) 127 mg/dL (70-99) Test 07/05/19 12:01 07/05/19 17:12 07/05/19 20:23 07/06/19 05:40 Glucose (Fingerstick) 242 mg/dL (70-99) 153 mg/dL (70-99) 121 mg/dL (70-99) White Blood Count 7.1 x10^3/uL (4.0-11.0) Red Blood Count 3.09 x10^6/uL (4.30-5.70) Hemoglobin 8.8 g/dL (13.0-17.5) Hematocrit 26.7 % (39.0-53.0) Mean Corpuscular Volume 86 fL (79-100) Mean Corpuscular Hemoglobin 28 pg (25-35) Mean Corpuscular Hemoglobin Concent 33 g/dL (31-37) Red Cell Distribution Width 18.7 % (11.5-14.5) Platelet Count 336 x10^3/uL (140-400) Neutrophils (%) (Auto) 60 % (31-73) Lymphocytes (%) (Auto) 21 % (24-48) Monocytes (%) (Auto) 11 % (0-9) Eosinophils (%) (Auto) 8 % (0-3) Basophils (%) (Auto) 1 % (0-3) Neutrophils # (Auto) 4.2 x10^3/uL (1.8-7.7) Lymphocytes # (Auto) 1.4 x10^3/uL (1.0-4.8) Monocytes # (Auto) 0.8 x10^3/uL (0.0-1.1) Eosinophils # (Auto) 0.6 x10^3/uL (0.0-0.7) Basophils # (Auto) 0.1 x10^3/uL (0.0-0.2) Prothrombin Time 16.7 SEC (11.7-14.0) Prothromb Time International Ratio 1.4 (0.8-1.1) Sodium Level 138 mmol/L (136-145) Potassium Level 3.9 mmol/L (3.5-5.1) Chloride Level 100 mmol/L (98-107) Carbon Dioxide Level 28 mmol/L (21-32) Anion Gap 10 (6-14) Blood Urea Nitrogen 32 mg/dL (8-26) Creatinine 5.8 mg/dL (0.7-1.3) Estimated GFR (Cockcroft-Gault) 11.5 Glucose Level 109 mg/dL (70-99) Calcium Level 9.0 mg/dL (8.5-10.1) Test 07/06/19 08:45 Glucose (Fingerstick) 102 mg/dL (70-99) Laboratory Tests Test 07/05/19 12:01 07/05/19 17:12 07/05/19 20:23 07/06/19 05:40 Glucose (Fingerstick) 242 mg/dL (70-99) 153 mg/dL (70-99) 121 mg/dL (70-99) White Blood Count 7.1 x10^3/uL (4.0-11.0) Red Blood Count 3.09 x10^6/uL (4.30-5.70) Hemoglobin 8.8 g/dL (13.0-17.5) Hematocrit 26.7 % (39.0-53.0) Mean Corpuscular Volume 86 fL (79-100) Mean Corpuscular Hemoglobin 28 pg (25-35) Mean Corpuscular Hemoglobin Concent 33 g/dL (31-37) Red Cell Distribution Width 18.7 % (11.5-14.5) Platelet Count 336 x10^3/uL (140-400) Neutrophils (%) (Auto) 60 % (31-73) Lymphocytes (%) (Auto) 21 % (24-48) Monocytes (%) (Auto) 11 % (0-9) Eosinophils (%) (Auto) 8 % (0-3) Basophils (%) (Auto) 1 % (0-3) Neutrophils # (Auto) 4.2 x10^3/uL (1.8-7.7) Lymphocytes # (Auto) 1.4 x10^3/uL (1.0-4.8) Monocytes # (Auto) 0.8 x10^3/uL (0.0-1.1) Eosinophils # (Auto) 0.6 x10^3/uL (0.0-0.7) Basophils # (Auto) 0.1 x10^3/uL (0.0-0.2) Prothrombin Time 16.7 SEC (11.7-14.0) Prothromb Time International Ratio 1.4 (0.8-1.1) Sodium Level 138 mmol/L (136-145) Potassium Level 3.9 mmol/L (3.5-5.1) Chloride Level 100 mmol/L (98-107) Carbon Dioxide Level 28 mmol/L (21-32) Anion Gap 10 (6-14) Blood Urea Nitrogen 32 mg/dL (8-26) Creatinine 5.8 mg/dL (0.7-1.3) Estimated GFR (Cockcroft-Gault) 11.5 Glucose Level 109 mg/dL (70-99) Calcium Level 9.0 mg/dL (8.5-10.1) Test 07/06/19 08:45 Glucose (Fingerstick) 102 mg/dL (70-99) Microbiology 06/23/19 Urine Culture - Final, Complete 06/23/19 Urine Culture Result 1 (TEREZA) - Final, Complete 06/22/19 Blood Culture - Final, Complete NO GROWTH AFTER 5 DAYS Medications Current Medications Vancomycin HCl 250 ml @ 250 mls/hr 1X ONCE IV ; Start 06/22/19 at 10:45; Stop 06/22/19 at 11:44; Status UNV Piperacillin Sod/ Tazobactam Sod 2.25 gm/Sodium Chloride 50 ml @ 100 mls/hr 1X ONCE IV Last administered on 06/22/19at 11:55; Start 06/22/19 at 10:45; Stop 06/22/19 at 11:14; Status DC Sodium Chloride 1,000 ml @ 100 mls/hr Q10H IV Last administered on 06/22/19at 11:55; Start 06/22/19 at 10:38; Stop 06/22/19 at 20:37; Status DC Vancomycin HCl 2 gm/Sodium Chloride 500 ml @ 250 mls/hr 1X ONCE IV Last administered on 06/22/19at 12:32; Start 06/22/19 at 11:30; Stop 06/22/19 at 13:29; Status DC Info (PHARMACY MONITORING -- do not chart) 1 each PRN DAILY PRN MC SEE COMMENTS; Start 06/22/19 at 16:30; Stop 06/24/19 at 11:38; Status DC Info (PHARMACY MONITORING -- do not chart) 1 each PRN DAILY PRN MC SEE COMMENTS; Start 06/22/19 at 16:30; Status UNV Sodium Chloride 1,000 ml @ 40 mls/hr Q24H IV Last administered on 06/24/19at 18:31; Start 06/22/19 at 17:30; Stop 06/25/19 at 19:44; Status DC Vancomycin HCl (Vanco Per Pharmacy) 1 each PRN DAILY PRN MC SEE COMMENTS Last administered on 07/05/19at 13:34; Start 06/22/19 at 17:30 Piperacillin Sod/ Tazobactam Sod (Zosyn Per Pharmacy) 1 each PRN DAILY PRN MC SEE COMMENTS; Start 06/22/19 at 17:30 Acetaminophen (Tylenol) 650 mg PRN Q6HRS PRN PO MILD PAIN / TEMP; Start 06/22/19 at 17:30; Stop 06/25/19 at 18:15; Status DC Ondansetron HCl (Zofran) 4 mg PRN Q6HRS PRN IV NAUSEA/VOMITING; Start 06/22/19 at 17:30 Clopidogrel Bisulfate (Plavix) 75 mg DAILYWBKFT PO Last administered on 07/02/19at 10:00; Start 06/23/19 at 08:00; Stop 07/02/19 at 14:26; Status DC Vitamin B Complex/ Vitamin C (Rosalie-Judah) 1 tab DAILY PO Last administered on 07/05/19at 09:30; Start 06/23/19 at 09:00 Allopurinol (Zyloprim) 100 mg DAILY PO ; Start 06/23/19 at 09:00; Stop 06/25/19 at 18:17; Status DC Atorvastatin Calcium (Lipitor) 40 mg QHS PO Last administered on 06/22/19at 21:37; Start 06/22/19 at 21:00; Stop 06/25/19 at 12:19; Status DC Pantoprazole Sodium (Protonix) 40 mg DAILYAC PO Last administered on 07/05/19at 09:30; Start 06/23/19 at 07:30 Cyanocobalamin (Vitamin B-12) 1,000 mcg DAILY PO Last administered on 07/05/19at 09:30; Start 06/23/19 at 09:00 Piperacillin Sod/ Tazobactam Sod 2.25 gm/Sodium Chloride 50 ml @ 100 mls/hr Q8HRS IV Last administered on 07/06/19at 05:40; Start 06/22/19 at 21:00 Heparin Sodium (Porcine) (Heparin Sodium) 5,000 unit BID SQ Last administered on 06/22/19at 21:37; Start 06/22/19 at 21:00; Stop 06/23/19 at 08:23; Status DC Insulin Human Lispro (HumaLOG) 0-6 UNITS BG 400-49... TIDWMEALS SQ Last administered on 07/05/19at 12:23; Start 06/23/19 at 08:00 Vancomycin HCl (Vancomycin Random Level) 1 each 1X ONCE MC Last administered on 06/24/19at 06:37; Start 06/24/19 at 06:00; Stop 06/24/19 at 06:01; Status DC Heparin Sodium/ Dextrose 500 ml @ 19.3 mls/hr CONT PRN IV SEE I/O RECORD; Start 06/23/19 at 08:30; Stop 06/23/19 at 14:53; Status DC Heparin Sodium (Porcine) (Heparin Sodium) 2,000 unit PRN Q6HRS PRN IV FOR UFH LEVEL LESS THAN 0.2; Start 06/23/19 at 08:30; Stop 06/23/19 at 14:53; Status DC Aspirin (Ecotrin) 325 mg 1X ONCE PO ; Start 06/23/19 at 10:30; Stop 06/23/19 at 10:31; Status DC Aspirin (Ecotrin) 81 mg DAILYWBKFT PO ; Start 06/24/19 at 08:00; Stop 06/25/19 at 18:16; Status DC Ondansetron HCl (Zofran) 4 mg PRN Q6HRS PRN IV NAUSEA/VOMITING; Start 06/24/19 at 07:00; Stop 06/25/19 at 06:59; Status DC Morphine Sulfate (Morphine Sulfate) 1 mg PRN Q10MIN PRN IV SEVERE PAIN 7-10; Start 06/24/19 at 07:00; Stop 06/24/19 at 10:06; Status DC Ringer's Solution 1,000 ml @ 30 mls/hr Q24H IV ; Start 06/24/19 at 07:00; Stop 06/24/19 at 18:59; Status DC Lidocaine HCl (Xylocaine-Mpf 1% 2ml Vial) 2 ml PRN 1X PRN ID PRIOR TO IV START; Start 06/24/19 at 07:00; Stop 06/25/19 at 06:59; Status DC Hydromorphone HCl (Dilaudid) 0.5 mg PRN Q10MIN PRN IV SEV PAIN, Second choice; Start 06/24/19 at 07:00; Stop 06/24/19 at 10:06; Status DC Info (Anti-Coagulation Monitoring By Pharmacy) 1 each PRN DAILY PRN MC SEE COMMENTS Last administered on 06/30/19at 10:17; Start 06/23/19 at 14:30; Stop 06/30/19 at 10:22; Status DC Enoxaparin Sodium (Lovenox Per Pharmacy Treatment Dosing) 1 each 1X PRN MC SEE COMMENTS; Start 06/23/19 at 14:45; Stop 06/23/19 at 21:00; Status DC Enoxaparin Sodium (Lovenox 80mg Syringe) 80 mg 1X ONCE SQ Last administered on 06/23/19at 15:16; Start 06/23/19 at 15:30; Stop 06/23/19 at 15:31; Status DC Heparin Sodium (Porcine) (Heparin Sodium) 5,000 unit Q12HR SQ Last administered on 07/05/19at 20:42; Start 06/24/19 at 11:00 Acetaminophen (Tylenol Supp) 650 mg PRN Q6HRS PRN DC MILD PAIN / TEMP Last administered on 06/24/19at 23:03; Start 06/24/19 at 10:30; Stop 06/28/19 at 11:19; Status DC Tramadol HCl (Ultram) 25 mg PRN Q6HRS PRN PO PAIN MODERATE PAIN Last administered on 07/02/19at 12:40; Start 06/24/19 at 10:30 Ketorolac Tromethamine (Toradol 15mg Vial) 15 mg PRN Q6HRS PRN IV PAIN Last administered on 06/28/19at 17:19; Start 06/24/19 at 10:30; Stop 06/29/19 at 10:29; Status DC Sodium Chloride 1,000 ml @ 1,000 mls/hr Q1H PRN IV hypotension; Start 06/24/19 at 11:27; Stop 06/24/19 at 17:26; Status DC Sodium Chloride 1,000 ml @ 400 mls/hr Q2H30M PRN IV PATENCY; Start 06/24/19 at 11:27; Stop 06/24/19 at 23:26; Status DC Info (PHARMACY MONITORING -- do not chart) 1 each PRN DAILY PRN MC SEE COMMENTS; Start 06/24/19 at 11:30; Status Cancel Info (PHARMACY MONITORING -- do not chart) 1 each PRN DAILY PRN MC SEE COMMENTS; Start 06/24/19 at 11:30; Status UNV Vancomycin HCl 500 mg/Sodium Chloride 100 ml @ 100 mls/hr QMWF IV Last administered on 07/03/19at 16:13; Start 06/24/19 at 16:00 Dextrose (Dextrose 50%-Water Syringe) 12.5 gm PRN Q15MIN PRN IV SEE COMMENTS Last administered on 06/25/19at 01:41; Start 06/25/19 at 01:30 Dextrose 250 ml PRN Q15MIN PRN IV SEE COMMENTS; Start 06/25/19 at 01:30 Micafungin Sodium 100 mg/Dextrose 100 ml @ 100 mls/hr Q24H IV Last administered on 07/02/19at 16:45; Start 06/25/19 at 09:00; Stop 07/03/19 at 08:21; Status DC Metoprolol Tartrate (Lopressor Vial) 2.5 mg Q6HRS IVP Last administered on 06/27/19at 17:59; Start 06/25/19 at 18:00; Stop 06/28/19 at 11:19; Status DC Atorvastatin Calcium (Lipitor) 10 mg QHS PEG Last administered on 07/05/19at 20:37; Start 06/25/19 at 21:00 Ondansetron HCl (Zofran) 4 mg PRN Q6HRS PRN IV NAUSEA/VOMITING; Start 06/26/19 at 07:00; Stop 06/27/19 at 06:59; Status DC Morphine Sulfate (Morphine Sulfate) 1 mg PRN Q10MIN PRN IV SEVERE PAIN 7-10; Start 06/26/19 at 07:00; Stop 06/27/19 at 06:59; Status DC Ringer's Solution 1,000 ml @ 30 mls/hr Q24H IV ; Start 06/26/19 at 07:00; Stop 06/26/19 at 18:59; Status DC Lidocaine HCl (Xylocaine-Mpf 1% 2ml Vial) 2 ml PRN 1X PRN ID PRIOR TO IV START; Start 06/26/19 at 07:00; Stop 06/27/19 at 06:59; Status DC Hydromorphone HCl (Dilaudid) 0.5 mg PRN Q10MIN PRN IV SEV PAIN, Second choice; Start 06/26/19 at 07:00; Stop 06/27/19 at 06:59; Status DC Acetaminophen (Tylenol) 650 mg PRN Q6HRS PRN PEG MILD PAIN / TEMP Last administered on 07/02/19at 21:00; Start 06/25/19 at 18:15 Aspirin (Children'S Aspirin) 81 mg DAILYWBKFT PEG Last administered on 07/03/19at 14:09; Start 06/26/19 at 08:00; Stop 07/03/19 at 15:55; Status DC Allopurinol (Zyloprim) 100 mg DAILY PEG Last administered on 07/05/19at 09:30; Start 06/25/19 at 18:17 Quetiapine Fumarate (SEROquel) 12.5 mg PRN Q8HRS PRN PO PSYCHOTIC BEHAVIOR Last administered on 07/05/19at 20:37; Start 06/25/19 at 19:45 Vitamin A/Vitamin D (Vitamin A & D Ointment) 1 héctor PRN BID PRN TP SKIN PROTECTION Last administered on 07/02/19at 10:00; Start 06/26/19 at 06:00 Sodium Chloride 1,000 ml @ 1,000 mls/hr Q1H PRN IV hypotension; Start 06/26/19 at 12:41; Stop 06/26/19 at 18:40; Status DC Info (PHARMACY MONITORING -- do not chart) 1 each PRN DAILY PRN MC SEE COMMENTS; Start 06/26/19 at 12:45; Status UNV Info (PHARMACY MONITORING -- do not chart) 1 each PRN DAILY PRN MC SEE COMMENTS; Start 06/26/19 at 12:45; Status Cancel Sodium Chloride 1,000 ml @ 1,000 mls/hr Q1H PRN IV hypotension; Start 06/29/19 at 12:00; Stop 06/29/19 at 17:59; Status DC Sodium Chloride 1,000 ml @ 400 mls/hr Q2H30M PRN IV PATENCY; Start 06/29/19 at 12:00; Stop 06/29/19 at 23:59; Status DC Info (PHARMACY MONITORING -- do not chart) 1 each PRN DAILY PRN MC SEE COMMENTS; Start 06/29/19 at 16:00; Status UNV Info (PHARMACY MONITORING -- do not chart) 1 each PRN DAILY PRN MC SEE COMMENTS; Start 06/29/19 at 16:00; Status Cancel Info (PHARMACY MONITORING -- do not chart) 1 each PRN DAILY PRN MC SEE COMMENTS; Start 07/01/19 at 14:00; Status UNV Info (PHARMACY MONITORING -- do not chart) 1 each PRN DAILY PRN MC SEE COMMENTS; Start 07/01/19 at 14:00; Stop 07/03/19 at 07:29; Status DC Darbepoetin Chito (ARANESP for DIALYSIS PTS) 60 mcg WEEKLYHS SQ Last administered on 07/01/19at 21:48; Start 07/01/19 at 21:00 Vancomycin HCl (Vancomycin Random Level) 1 each 1X ONCE MC Last administered on 07/03/19at 06:19; Start 07/03/19 at 06:00; Stop 07/03/19 at 06:01; Status DC Lidocaine/Sodium Bicarbonate (Buffered Lidocaine 1%) 3 ml STK-MED ONCE .ROUTE ; Start 07/02/19 at 15:27; Stop 07/02/19 at 15:28; Status DC Dextrose/Sodium Chloride 1,000 ml @ 40 mls/hr Q24H IV Last administered on 07/05/19at 16:21; Start 07/02/19 at 17:00 Sodium Chloride 1,000 ml @ 1,000 mls/hr Q1H PRN IV hypotension; Start 07/03/19 at 07:18; Stop 07/03/19 at 13:17; Status DC Albumin Human 200 ml @ 200 mls/hr 1X PRN PRN IV Hypotension; Start 07/03/19 at 07:30; Stop 07/03/19 at 13:29; Status DC Acetaminophen (Tylenol) 500 mg 1X PRN PRN PO MILD PAIN / TEMP; Start 07/03/19 at 07:30; Stop 07/04/19 at 07:29; Status DC Diphenhydramine HCl (Benadryl) 25 mg 1X PRN PRN IV ITCHING; Start 07/03/19 at 07:30; Stop 07/04/19 at 07:29; Status DC Diphenhydramine HCl (Benadryl) 25 mg 1X PRN PRN IV ITCHING; Start 07/03/19 at 07:30; Stop 07/04/19 at 07:29; Status DC Sodium Chloride 1,000 ml @ 400 mls/hr Q2H30M PRN IV PATENCY; Start 07/03/19 at 07:18; Stop 07/03/19 at 19:17; Status DC Info (PHARMACY MONITORING -- do not chart) 1 each PRN DAILY PRN MC SEE COMMENTS; Start 07/03/19 at 07:30 Info (PHARMACY MONITORING -- do not chart) 1 each PRN DAILY PRN MC SEE COMMENTS; Start 07/03/19 at 07:30; Status UNV Ondansetron HCl (Zofran) 4 mg PRN Q6HRS PRN IV NAUSEA/VOMITING; Start 07/06/19 at 07:00; Stop 07/07/19 at 06:59 Morphine Sulfate (Morphine Sulfate) 1 mg PRN Q10MIN PRN IV SEVERE PAIN 7-10; Start 07/06/19 at 07:00; Stop 07/07/19 at 06:59 Ringer's Solution 1,000 ml @ 30 mls/hr Q24H IV ; Start 07/06/19 at 07:00; Stop 07/06/19 at 18:59 Lidocaine HCl (Xylocaine-Mpf 1% 2ml Vial) 2 ml PRN 1X PRN ID PRIOR TO IV START; Start 07/06/19 at 07:00; Stop 07/07/19 at 06:59 Hydromorphone HCl (Dilaudid) 0.5 mg PRN Q10MIN PRN IV SEV PAIN, Second choice; Start 07/06/19 at 07:00; Stop 07/07/19 at 06:59 Metoprolol Succinate (Toprol Xl) 12.5 mg DAILY PO Last administered on 07/05/19at 09:30; Start 07/03/19 at 16:30 Aspirin (Ecotrin) 81 mg DAILYWBKFT PO Last administered on 07/05/19at 09:30; Start 07/04/19 at 08:00 Active Scripts Active [place] 5-325 Tablet (Acetaminophen/Hydrocodone Bitart) 1 Each Tablet 0.5 Tab PO Q4HRS Zyvox (Linezolid) 600 Mg Tablet 600 Mg PO BID 4 Days Amox Tr-K Clv 500-125 Mg Tab (Amoxicillin/Potassium Clav) 1 Each Tablet 1 Tab PO DAILY 4 Days Tramadol Hcl 50 Mg Tablet 50 Mg PO PRN Q6HRS PRN Ondansetron Odt (Ondansetron) 4 Mg Tab.rapdis 4 Mg PO Q6HRS PRN Humalog (Insulin Lispro) 100 Unit/1 Ml Insuln.pen 0 Units SQ TIDWMEALS 30 Days BG 150-199= 1 units 200-299= 2 units 300-399= 4 units 400-499= 6 units ac tid sliding scale Reported Omeprazole 20 Mg Tablet.dr 1 Tab PO DAILY Vitamin D3 (Cholecalciferol (Vitamin D3)) 1,000 Unit Tablet 1 Tab PO DAILY Vitamin B-12 (Cyanocobalamin (Vitamin B-12)) 1,000 Mcg Tablet 1 Tab PO DAILY Senna (Sennosides) 8.6 Mg Tablet 8.6 Mg PO PRN DAILY PRN 2 tabs Renvela (Sevelamer Carbonate) 800 Mg Tablet 800 Mg PO TIDWMEALS Renal Caps Softgel (Folic Acid/Vitamin B Comp W-C) 1 Mg Capsule 1 Mg PO DAILY Reglan (Metoclopramide Hcl) 10 Mg Tablet 5 Mg PO TID Probiotic (Lactobacillus Acidophilus) 1 Each Capsule 1 Each PO BID Milk Of Magnesia (Magnesium Hydroxide) 400 Mg/5 Ml Oral.susp 400 Mg PO PRN DAILY PRN Lipitor (Atorvastatin Calcium) 40 Mg Tablet 1 Tab PO QHS Humalog (Insulin Lispro) 100 Unit/1 Ml Insuln.pen 100 Unit SQ TIDBFRMEAL 150-199=1 unit 200-299=2 units 300-399=4 units 100-499=6 units Clopidogrel (Clopidogrel Bisulfate) 75 Mg Tablet 1 Tab PO DAILY Duoneb 0.5-3(2.5) Mg/3 Ml (Albuterol/Ipratropium) 3 Ml Ampul.neb 3 Ml NEB PRN Q4HRS PRN Lac-Hydrin Five (Ammonium Lactate) 226 Gm Lotion 226 Gm TP BID Allopurinol 100 Mg Tablet 1 Tab PO DAILY Tylenol (Acetaminophen) 325 Mg Tablet 1 Tab PO PRN Q4HRS Aspirin 81 Mg Tab.chew 81 Mg PO DAILY Vitals/I & O Vital Sign - Last 24 Hours 07/05/19 07/05/19 07/05/19 07/05/19 11:00 15:00 19:10 19:49 Temp 98.0 98.2 97.4 98.0 98.2 97.4 Pulse 59 60 59 Resp 20 20 16 B/P (MAP) 101/43 (62) 110/63 (79) 110/55 (73) Pulse Ox 98 96 99 O2 Delivery Room Air Room Air Room Air Room Air 07/05/19 07/06/19 07/06/19 23:23 03:45 07:45 Temp 97.3 97.5 97.5 97.3 97.5 97.5 Pulse 60 60 62 Resp 16 16 20 B/P (MAP) 117/46 (69) 96/44 (61) 128/64 (85) Pulse Ox 95 90 97 O2 Delivery Room Air Room Air Room Air Intake and Output 07/05/19 07/05/19 07/06/19 14:59 22:59 06:59 Intake Total 50 ml 100 ml Output Total 30 ml Balance 20 ml 100 ml BAN TORRES MD Jul 06, 2019 10:11
--- NOTE | 2019-07-06 10:19 | PDOC ---
PROGRESS NOTES Subjective Subjective feels well. lab reviewed. discussed with nurse he feels well and is alert Objective Objective Vital Signs Date Time Temp Pulse Resp B/P (MAP) Pulse Ox O2 Delivery O2 Flow Rate FiO2 07/06/19 07:45 97.5 62 20 128/64 (85) 97 Room Air 97.5 Intake and Output 07/06/19 06:59 Intake Total 150 ml Output Total 30 ml Balance 120 ml Intake Oral 50 ml IV Total 100 ml Output Urine Total 30 ml # Bowel Movements 1 Physical Exam Abdomen: Soft Heart: Regular rate, Normal S1, Normal S2 Extremities: No edema, Other (bilateral BKA with left BKA stump wound vac) General: Alert HEENT: Atraumatic Neuro: Normal speech Psych/Mental Status: Mood NL Skin: No rashes Assessment Assessment Problems Medical Problems: metabolic encephalopathy. better 2. 3. Bilateral below-knee amputation. 4. left below-knee amputation stump wound infection 5. Diabetes mellitus type 2. 6. Peripheral arterial disease. 7. End-stage renal disease, on hemodialysis. m-w-f 8. paroxysmal atrial fibrillation. in nsr. not a coumadin candidate. recent hx of retroperitoneal bleed on anticoagulants and fall risk. 9. Severe protein-calorie malnutrition. 10. Anemia of chronic disease. NSTEMI oropharyngeal dysphagia on HTL pureed (1) Altered mental status Status: Acute (2) Anemia in chronic illness Status: Chronic (3) CAD (coronary artery disease) Status: Chronic (4) Chronic a-fib Status: Chronic (5) DM2 (diabetes mellitus, type 2) Status: Chronic (6) ESRD (end stage renal disease) Status: Acute (7) HTN (hypertension) Status: Chronic (8) Metabolic encephalopathy Status: Acute (9) NSTEMI (non-ST elevated myocardial infarction) Status: Acute (10) Paroxysmal A-fib Status: Acute (11) Peripheral artery disease Status: Chronic (12) Severe protein-calorie malnutrition Status: Chronic (13) SSS (sick sinus syndrome) Status: Chronic (14) UTI (urinary tract infection) Status: Acute Plan Plan of Care PEG today hemodialysis today continue wound care and wound vac continue iv antibiotics Comment Review of Relevant I have reviewed the following items soumya (where applicable) has been applied. Labs Laboratory Tests Test 07/04/19 11:57 07/04/19 16:50 07/04/19 20:59 07/05/19 07:55 Glucose (Fingerstick) 219 mg/dL (70-99) 192 mg/dL (70-99) 184 mg/dL (70-99) 127 mg/dL (70-99) Test 07/05/19 12:01 07/05/19 17:12 07/05/19 20:23 07/06/19 05:40 Glucose (Fingerstick) 242 mg/dL (70-99) 153 mg/dL (70-99) 121 mg/dL (70-99) White Blood Count 7.1 x10^3/uL (4.0-11.0) Red Blood Count 3.09 x10^6/uL (4.30-5.70) Hemoglobin 8.8 g/dL (13.0-17.5) Hematocrit 26.7 % (39.0-53.0) Mean Corpuscular Volume 86 fL (79-100) Mean Corpuscular Hemoglobin 28 pg (25-35) Mean Corpuscular Hemoglobin Concent 33 g/dL (31-37) Red Cell Distribution Width 18.7 % (11.5-14.5) Platelet Count 336 x10^3/uL (140-400) Neutrophils (%) (Auto) 60 % (31-73) Lymphocytes (%) (Auto) 21 % (24-48) Monocytes (%) (Auto) 11 % (0-9) Eosinophils (%) (Auto) 8 % (0-3) Basophils (%) (Auto) 1 % (0-3) Neutrophils # (Auto) 4.2 x10^3/uL (1.8-7.7) Lymphocytes # (Auto) 1.4 x10^3/uL (1.0-4.8) Monocytes # (Auto) 0.8 x10^3/uL (0.0-1.1) Eosinophils # (Auto) 0.6 x10^3/uL (0.0-0.7) Basophils # (Auto) 0.1 x10^3/uL (0.0-0.2) Prothrombin Time 16.7 SEC (11.7-14.0) Prothromb Time International Ratio 1.4 (0.8-1.1) Sodium Level 138 mmol/L (136-145) Potassium Level 3.9 mmol/L (3.5-5.1) Chloride Level 100 mmol/L (98-107) Carbon Dioxide Level 28 mmol/L (21-32) Anion Gap 10 (6-14) Blood Urea Nitrogen 32 mg/dL (8-26) Creatinine 5.8 mg/dL (0.7-1.3) Estimated GFR (Cockcroft-Gault) 11.5 Glucose Level 109 mg/dL (70-99) Calcium Level 9.0 mg/dL (8.5-10.1) Test 07/06/19 08:45 Glucose (Fingerstick) 102 mg/dL (70-99) Laboratory Tests Test 07/05/19 12:01 07/05/19 17:12 07/05/19 20:23 07/06/19 05:40 Glucose (Fingerstick) 242 mg/dL (70-99) 153 mg/dL (70-99) 121 mg/dL (70-99) White Blood Count 7.1 x10^3/uL (4.0-11.0) Red Blood Count 3.09 x10^6/uL (4.30-5.70) Hemoglobin 8.8 g/dL (13.0-17.5) Hematocrit 26.7 % (39.0-53.0) Mean Corpuscular Volume 86 fL (79-100) Mean Corpuscular Hemoglobin 28 pg (25-35) Mean Corpuscular Hemoglobin Concent 33 g/dL (31-37) Red Cell Distribution Width 18.7 % (11.5-14.5) Platelet Count 336 x10^3/uL (140-400) Neutrophils (%) (Auto) 60 % (31-73) Lymphocytes (%) (Auto) 21 % (24-48) Monocytes (%) (Auto) 11 % (0-9) Eosinophils (%) (Auto) 8 % (0-3) Basophils (%) (Auto) 1 % (0-3) Neutrophils # (Auto) 4.2 x10^3/uL (1.8-7.7) Lymphocytes # (Auto) 1.4 x10^3/uL (1.0-4.8) Monocytes # (Auto) 0.8 x10^3/uL (0.0-1.1) Eosinophils # (Auto) 0.6 x10^3/uL (0.0-0.7) Basophils # (Auto) 0.1 x10^3/uL (0.0-0.2) Prothrombin Time 16.7 SEC (11.7-14.0) Prothromb Time International Ratio 1.4 (0.8-1.1) Sodium Level 138 mmol/L (136-145) Potassium Level 3.9 mmol/L (3.5-5.1) Chloride Level 100 mmol/L (98-107) Carbon Dioxide Level 28 mmol/L (21-32) Anion Gap 10 (6-14) Blood Urea Nitrogen 32 mg/dL (8-26) Creatinine 5.8 mg/dL (0.7-1.3) Estimated GFR (Cockcroft-Gault) 11.5 Glucose Level 109 mg/dL (70-99) Calcium Level 9.0 mg/dL (8.5-10.1) Test 07/06/19 08:45 Glucose (Fingerstick) 102 mg/dL (70-99) Microbiology 06/23/19 Urine Culture - Final, Complete 06/23/19 Urine Culture Result 1 (TEREZA) - Final, Complete 06/22/19 Blood Culture - Final, Complete NO GROWTH AFTER 5 DAYS Medications Current Medications Vancomycin HCl 250 ml @ 250 mls/hr 1X ONCE IV ; Start 06/22/19 at 10:45; Stop 06/22/19 at 11:44; Status UNV Piperacillin Sod/ Tazobactam Sod 2.25 gm/Sodium Chloride 50 ml @ 100 mls/hr 1X ONCE IV Last administered on 06/22/19at 11:55; Start 06/22/19 at 10:45; Stop at 11:14; Status DC Sodium Chloride 1,000 ml @ 100 mls/hr Q10H IV Last administered on 06/22/19at 11:55; Start 06/22/19 at 10:38; Stop 06/22/19 at 20:37; Status DC Vancomycin HCl 2 gm/Sodium Chloride 500 ml @ 250 mls/hr 1X ONCE IV Last administered on 06/22/19at 12:32; Start 06/22/19 at 11:30; Stop 06/22/19 at 13:29; Status DC Info (PHARMACY MONITORING -- do not chart) 1 each PRN DAILY PRN MC SEE COMMENTS; Start 06/22/19 at 16:30; Stop 06/24/19 at 11:38; Status DC Info (PHARMACY MONITORING -- do not chart) 1 each PRN DAILY PRN MC SEE COMMENTS; Start 06/22/19 at 16:30; Status UNV Sodium Chloride 1,000 ml @ 40 mls/hr Q24H IV Last administered on 06/24/19at 18:31; Start 06/22/19 at 17:30; Stop 06/25/19 at 19:44; Status DC Vancomycin HCl (Vanco Per Pharmacy) 1 each PRN DAILY PRN MC SEE COMMENTS Last administered on 07/05/19at 13:34; Start 06/22/19 at 17:30 Piperacillin Sod/ Tazobactam Sod (Zosyn Per Pharmacy) 1 each PRN DAILY PRN MC SEE COMMENTS; Start 06/22/19 at 17:30 Acetaminophen (Tylenol) 650 mg PRN Q6HRS PRN PO MILD PAIN / TEMP; Start 06/22/19 at 17:30; Stop 06/25/19 at 18:15; Status DC Ondansetron HCl (Zofran) 4 mg PRN Q6HRS PRN IV NAUSEA/VOMITING; Start 06/22/19 at 17:30 Clopidogrel Bisulfate (Plavix) 75 mg DAILYWBKFT PO Last administered on 07/02/19 at 10:00; Start 06/23/19 at 08:00; Stop 07/02/19 at 14:26; Status DC Vitamin B Complex/ Vitamin C (Carlos-Moses) 1 tab DAILY PO Last administered on 07/05/19at 09:30; Start 06/23/19 at 09:00 Allopurinol (Zyloprim) 100 mg DAILY PO ; Start 06/23/19 at 09:00; Stop 06/25/19 at 18:17; Status DC Atorvastatin Calcium (Lipitor) 40 mg QHS PO Last administered on 06/22/19at 21:37; Start 06/22/19 at 21:00; Stop 06/25/19 at 12:19; Status DC Pantoprazole Sodium (Protonix) 40 mg DAILYAC PO Last administered on 07/05/19at 09:30; Start 06/23/19 at 07:30 Cyanocobalamin (Vitamin B-12) 1,000 mcg DAILY PO Last administered on 07/05/19at 09:30; Start 06/23/19 at 09:00 Piperacillin Sod/ Tazobactam Sod 2.25 gm/Sodium Chloride 50 ml @ 100 mls/hr Q8HRS IV Last administered on 07/06/19at 05:40; Start 06/22/19 at 21:00 Heparin Sodium (Porcine) (Heparin Sodium) 5,000 unit BID SQ Last administered on 06/22/19at 21:37; Start 06/22/19 at 21:00; Stop 06/23/19 at 08:23; Status DC Insulin Human Lispro (HumaLOG) 0-6 UNITS BG 400-49... TIDWMEALS SQ Last administered on 07/05/19at 12:23; Start 06/23/19 at 08:00 Vancomycin HCl (Vancomycin Random Level) 1 each 1X ONCE MC Last administered on 06/24/19at 06:37; Start 06/24/19 at 06:00; Stop 06/24/19 at 06:01; Status DC Heparin Sodium/ Dextrose 500 ml @ 19.3 mls/hr CONT PRN IV SEE I/O RECORD; Start 06/23/19 at 08:30; Stop 06/23/19 at 14:53; Status DC Heparin Sodium (Porcine) (Heparin Sodium) 2,000 unit PRN Q6HRS PRN IV FOR UFH LEVEL LESS THAN 0.2; Start 06/23/19 at 08:30; Stop 06/23/19 at 14:53; Status DC Aspirin (Ecotrin) 325 mg 1X ONCE PO ; Start 06/23/19 at 10:30; Stop 06/23/19 at 10:31; Status DC Aspirin (Ecotrin) 81 mg DAILYWBKFT PO ; Start 06/24/19 at 08:00; Stop 06/25/19 at 18:16; Status DC Ondansetron HCl (Zofran) 4 mg PRN Q6HRS PRN IV NAUSEA/VOMITING; Start 06/24/19 at 07:00; Stop 06/25/19 at 06:59; Status DC Morphine Sulfate (Morphine Sulfate) 1 mg PRN Q10MIN PRN IV SEVERE PAIN 7-10; Start 06/24/19 at 07:00; Stop 06/24/19 at 10:06; Status DC Ringer's Solution 1,000 ml @ 30 mls/hr Q24H IV ; Start 06/24/19 at 07:00; Stop 06/24/19 at 18:59; Status DC Lidocaine HCl (Xylocaine-Mpf 1% 2ml Vial) 2 ml PRN 1X PRN ID PRIOR TO IV START; Start 06/24/19 at 07:00; Stop 06/25/19 at 06:59; Status DC Hydromorphone HCl (Dilaudid) 0.5 mg PRN Q10MIN PRN IV SEV PAIN, Second choice; Start 06/24/19 at 07:00; Stop 06/24/19 at 10:06; Status DC Info (Anti-Coagulation Monitoring By Pharmacy) 1 each PRN DAILY PRN MC SEE COMMENTS Last administered on 06/30/19at 10:17; Start 06/23/19 at 14:30; Stop 06/30/19 at 10:22; Status DC Enoxaparin Sodium (Lovenox Per Pharmacy Treatment Dosing) 1 each 1X PRN MC SEE COMMENTS; Start 06/23/19 at 14:45; Stop 06/23/19 at 21:00; Status DC Enoxaparin Sodium (Lovenox 80mg Syringe) 80 mg 1X ONCE SQ Last administered on 06/23/19at 15:16; Start 06/23/19 at 15:30; Stop 06/23/19 at 15:31; Status DC Heparin Sodium (Porcine) (Heparin Sodium) 5,000 unit Q12HR SQ Last administered on 07/05/19at 20:42; Start 06/24/19 at 11:00 Acetaminophen (Tylenol Supp) 650 mg PRN Q6HRS PRN MT MILD PAIN / TEMP Last administered on 06/24/19at 23:03; Start 06/24/19 at 10:30; Stop 06/28/19 at 11:19; Status DC Tramadol HCl (Ultram) 25 mg PRN Q6HRS PRN PO PAIN MODERATE PAIN Last administered on 07/02/19at 12:40; Start 06/24/19 at 10:30 Ketorolac Tromethamine (Toradol 15mg Vial) 15 mg PRN Q6HRS PRN IV PAIN Last administered on 06/28/19at 17:19; Start 06/24/19 at 10:30; Stop 06/29/19 at 10:29; Status DC Sodium Chloride 1,000 ml @ 1,000 mls/hr Q1H PRN IV hypotension; Start 06/24/19 at 11:27; Stop 06/24/19 at 17:26; Status DC Sodium Chloride 1,000 ml @ 400 mls/hr Q2H30M PRN IV PATENCY; Start 06/24/19 at 11:27; Stop 06/24/19 at 23:26; Status DC Info (PHARMACY MONITORING -- do not chart) 1 each PRN DAILY PRN MC SEE COMMENTS; Start 06/24/19 at 11:30; Status Cancel Info (PHARMACY MONITORING -- do not chart) 1 each PRN DAILY PRN MC SEE COMMENTS; Start 06/24/19 at 11:30; Status UNV Vancomycin HCl 500 mg/Sodium Chloride 100 ml @ 100 mls/hr QMWF IV Last administered on 07/03/19at 16:13; Start 06/24/19 at 16:00 Dextrose (Dextrose 50%-Water Syringe) 12.5 gm PRN Q15MIN PRN IV SEE COMMENTS Last administered on 06/25/19at 01:41; Start 06/25/19 at 01:30 Dextrose 250 ml PRN Q15MIN PRN IV SEE COMMENTS; Start 06/25/19 at 01:30 Micafungin Sodium 100 mg/Dextrose 100 ml @ 100 mls/hr Q24H IV Last administered on 07/02/19at 16:45; Start 06/25/19 at 09:00; Stop 07/03/19 at 08:21; Status DC Metoprolol Tartrate (Lopressor Vial) 2.5 mg Q6HRS IVP Last administered on 06/27/19at 17:59; Start 06/25/19 at 18:00; Stop 06/28/19 at 11:19; Status DC Atorvastatin Calcium (Lipitor) 10 mg QHS PEG Last administered on 07/05/19at 20:37; Start 06/25/19 at 21:00 Ondansetron HCl (Zofran) 4 mg PRN Q6HRS PRN IV NAUSEA/VOMITING; Start 06/26/19 at 07:00; Stop 06/27/19 at 06:59; Status DC Morphine Sulfate (Morphine Sulfate) 1 mg PRN Q10MIN PRN IV SEVERE PAIN 7-10; Start 06/26/19 at 07:00; Stop 06/27/19 at 06:59; Status DC Ringer's Solution 1,000 ml @ 30 mls/hr Q24H IV ; Start 06/26/19 at 07:00; Stop 06/26/19 at 18:59; Status DC Lidocaine HCl (Xylocaine-Mpf 1% 2ml Vial) 2 ml PRN 1X PRN ID PRIOR TO IV START; Start 06/26/19 at 07:00; Stop 06/27/19 at 06:59; Status DC Hydromorphone HCl (Dilaudid) 0.5 mg PRN Q10MIN PRN IV SEV PAIN, Second choice; Start 06/26/19 at 07:00; Stop 06/27/19 at 06:59; Status DC Acetaminophen (Tylenol) 650 mg PRN Q6HRS PRN PEG MILD PAIN / TEMP Last administered on 07/02/19at 21:00; Start 06/25/19 at 18:15 Aspirin (Children'S Aspirin) 81 mg DAILYWBKFT PEG Last administered on 07/03/19at 14:09; Start 06/26/19 at 08:00; Stop 07/03/19 at 15:55; Status DC Allopurinol (Zyloprim) 100 mg DAILY PEG Last administered on 07/05/19at 09:30; Start 06/25/19 at 18:17 Quetiapine Fumarate (SEROquel) 12.5 mg PRN Q8HRS PRN PO PSYCHOTIC BEHAVIOR Last administered on 07/05/19at 20:37; Start 06/25/19 at 19:45 Vitamin A/Vitamin D (Vitamin A & D Ointment) 1 héctor PRN BID PRN TP SKIN PROTECTION Last administered on 07/02/19at 10:00; Start 06/26/19 at 06:00 Sodium Chloride 1,000 ml @ 1,000 mls/hr Q1H PRN IV hypotension; Start 06/26/19 at 12:41; Stop 06/26/19 at 18:40; Status DC Info (PHARMACY MONITORING -- do not chart) 1 each PRN DAILY PRN MC SEE COMMENTS; Start 06/26/19 at 12:45; Status UNV Info (PHARMACY MONITORING -- do not chart) 1 each PRN DAILY PRN MC SEE COMMENTS; Start 06/26/19 at 12:45; Status Cancel Sodium Chloride 1,000 ml @ 1,000 mls/hr Q1H PRN IV hypotension; Start 06/29/19 at 12:00; Stop 06/29/19 at 17:59; Status DC Sodium Chloride 1,000 ml @ 400 mls/hr Q2H30M PRN IV PATENCY; Start 06/29/19 at 12:00; Stop 06/29/19 at 23:59; Status DC Info (PHARMACY MONITORING -- do not chart) 1 each PRN DAILY PRN MC SEE COMMENTS; Start 06/29/19 at 16:00; Status UNV Info (PHARMACY MONITORING -- do not chart) 1 each PRN DAILY PRN MC SEE COMMENTS; Start 06/29/19 at 16:00; Status Cancel Info (PHARMACY MONITORING -- do not chart) 1 each PRN DAILY PRN MC SEE COMMENTS; Start 07/01/19 at 14:00; Status UNV Info (PHARMACY MONITORING -- do not chart) 1 each PRN DAILY PRN MC SEE COMMENTS; Start 07/01/19 at 14:00; Stop 07/03/19 at 07:29; Status DC Darbepoetin Chito (ARANESP for DIALYSIS PTS) 60 mcg WEEKLYHS SQ Last administered on 07/01/19at 21:48; Start 07/01/19 at 21:00 Vancomycin HCl (Vancomycin Random Level) 1 each 1X ONCE MC Last administered on 07/03/19at 06:19; Start 07/03/19 at 06:00; Stop 07/03/19 at 06:01; Status DC Lidocaine/Sodium Bicarbonate (Buffered Lidocaine 1%) 3 ml STK-MED ONCE .ROUTE ; Start 07/02/19 at 15:27; Stop 07/02/19 at 15:28; Status DC Dextrose/Sodium Chloride 1,000 ml @ 40 mls/hr Q24H IV Last administered on 07/05/19at 16:21; Start 07/02/19 at 17:00 Sodium Chloride 1,000 ml @ 1,000 mls/hr Q1H PRN IV hypotension; Start 07/03/19 at 07:18; Stop 07/03/19 at 13:17; Status DC Albumin Human 200 ml @ 200 mls/hr 1X PRN PRN IV Hypotension; Start 07/03/19 at 07:30; Stop 07/03/19 at 13:29; Status DC Acetaminophen (Tylenol) 500 mg 1X PRN PRN PO MILD PAIN / TEMP; Start 07/03/19 at 07:30; Stop 07/04/19 at 07:29; Status DC Diphenhydramine HCl (Benadryl) 25 mg 1X PRN PRN IV ITCHING; Start 07/03/19 at 07:30; Stop 07/04/19 at 07:29; Status DC Diphenhydramine HCl (Benadryl) 25 mg 1X PRN PRN IV ITCHING; Start 07/03/19 at 07:30; Stop 07/04/19 at 07:29; Status DC Sodium Chloride 1,000 ml @ 400 mls/hr Q2H30M PRN IV PATENCY; Start 07/03/19 at 07:18; Stop 07/03/19 at 19:17; Status DC Info (PHARMACY MONITORING -- do not chart) 1 each PRN DAILY PRN MC SEE COMMENTS; Start 07/03/19 at 07:30 Info (PHARMACY MONITORING -- do not chart) 1 each PRN DAILY PRN MC SEE COMMENTS; Start 07/03/19 at 07:30; Status UNV Ondansetron HCl (Zofran) 4 mg PRN Q6HRS PRN IV NAUSEA/VOMITING; Start 07/06/19 at 07:00; Stop 07/07/19 at 06:59 Morphine Sulfate (Morphine Sulfate) 1 mg PRN Q10MIN PRN IV SEVERE PAIN 7-10; Start 07/06/19 at 07:00; Stop 07/07/19 at 06:59 Ringer's Solution 1,000 ml @ 30 mls/hr Q24H IV ; Start 07/06/19 at 07:00; Stop 07/06/19 at 18:59 Lidocaine HCl (Xylocaine-Mpf 1% 2ml Vial) 2 ml PRN 1X PRN ID PRIOR TO IV START; Start 07/06/19 at 07:00; Stop 07/07/19 at 06:59 Hydromorphone HCl (Dilaudid) 0.5 mg PRN Q10MIN PRN IV SEV PAIN, Second choice; Start 07/06/19 at 07:00; Stop 07/07/19 at 06:59 Metoprolol Succinate (Toprol Xl) 12.5 mg DAILY PO Last administered on 07/05/19a t 09:30; Start 07/03/19 at 16:30 Aspirin (Ecotrin) 81 mg DAILYWBKFT PO Last administered on 07/05/19at 09:30; Start 07/04/19 at 08:00 Active Scripts Active [place] 5-325 Tablet (Acetaminophen/Hydrocodone Bitart) 1 Each Tablet 0.5 Tab PO Q4HRS Zyvox (Linezolid) 600 Mg Tablet 600 Mg PO BID 4 Days Amox Tr-K Clv 500-125 Mg Tab (Amoxicillin/Potassium Clav) 1 Each Tablet 1 Tab PO DAILY 4 Days Tramadol Hcl 50 Mg Tablet 50 Mg PO PRN Q6HRS PRN Ondansetron Odt (Ondansetron) 4 Mg Tab.rapdis 4 Mg PO Q6HRS PRN Humalog (Insulin Lispro) 100 Unit/1 Ml Insuln.pen 0 Units SQ TIDWMEALS 30 Days BG 150-199= 1 units 200-299= 2 units 300-399= 4 units 400-499= 6 units ac tid sliding scale Reported Omeprazole 20 Mg Tablet.dr 1 Tab PO DAILY Vitamin D3 (Cholecalciferol (Vitamin D3)) 1,000 Unit Tablet 1 Tab PO DAILY Vitamin B-12 (Cyanocobalamin (Vitamin B-12)) 1,000 Mcg Tablet 1 Tab PO DAILY Senna (Sennosides) 8.6 Mg Tablet 8.6 Mg PO PRN DAILY PRN 2 tabs Renvela (Sevelamer Carbonate) 800 Mg Tablet 800 Mg PO TIDWMEALS Renal Caps Softgel (Folic Acid/Vitamin B Comp W-C) 1 Mg Capsule 1 Mg PO DAILY Reglan (Metoclopramide Hcl) 10 Mg Tablet 5 Mg PO TID Probiotic (Lactobacillus Acidophilus) 1 Each Capsule 1 Each PO BID Milk Of Magnesia (Magnesium Hydroxide) 400 Mg/5 Ml Oral.susp 400 Mg PO PRN DAILY PRN Lipitor (Atorvastatin Calcium) 40 Mg Tablet 1 Tab PO QHS Humalog (Insulin Lispro) 100 Unit/1 Ml Insuln.pen 100 Unit SQ TIDBFRMEAL 150-199=1 unit 200-299=2 units 300-399=4 units 100-499=6 units Clopidogrel (Clopidogrel Bisulfate) 75 Mg Tablet 1 Tab PO DAILY Duoneb 0.5-3(2.5) Mg/3 Ml (Albuterol/Ipratropium) 3 Ml Ampul.neb 3 Ml NEB PRN Q4HRS PRN Lac-Hydrin Five (Ammonium Lactate) 226 Gm Lotion 226 Gm TP BID Allopurinol 100 Mg Tablet 1 Tab PO DAILY Tylenol (Acetaminophen) 325 Mg Tablet 1 Tab PO PRN Q4HRS Aspirin 81 Mg Tab.chew 81 Mg PO DAILY Vitals/I & O Vital Sign - Last 24 Hours 07/05/19 07/05/19 07/05/19 07/05/19 11:00 15:00 19:10 19:49 Temp 98.0 98.2 97.4 98.0 98.2 97.4 Pulse 59 60 59 Resp 20 20 16 B/P (MAP) 101/43 (62) 110/63 (79) 110/55 (73) Pulse Ox 98 96 99 O2 Delivery Room Air Room Air Room Air Room Air 07/05/19 07/06/19 07/06/19 23:23 03:45 07:45 Temp 97.3 97.5 97.5 97.3 97.5 97.5 Pulse 60 60 62 Resp 16 16 20 B/P (MAP) 117/46 (69) 96/44 (61) 128/64 (85) Pulse Ox 95 90 97 O2 Delivery Room Air Room Air Room Air Intake and Output 07/05/19 07/05/19 07/06/19 14:59 22:59 06:59 Intake Total 50 ml 100 ml Output Total 30 ml Balance 20 ml 100 ml Nutrition Consultation Dietary Evaluation: Recommendations by RD: Increase Calorie Intake, Protein supplementation Comments: Continue w/dysphagia I diet w/honey thick liquids per [employer]CHNICIAN, recommend Magic cup supplements TID; recommend Marcell BID, thicken on unit Continue w/carlos-moses for wound healing Will re-order TF s/p PEG placement, recommend resume Nepro@goal rate 40 ml/hr w/200 ml water flushes q4 hrs or flushes per MD Expected Outcomes/Goals: New goal 06/30: TF infusion + PO intake to meet >75% est needs - met at times, goal ongoing Malnutrition Findings: Food and Nutrition Intake (Sev: <50% est energy req 5days Weight Status: Appropriate SAM OLMOS MD Jul 06, 2019 10:19
[2019-07-06] MEDS: VANCOMYCIN PER PHARMACY MC PRN (10:24)
[2019-07-06 11:00] VITALS: BP 113/57
--- NOTE | 2019-07-06 11:55 | PDOC ---
Renal-Progress Notes Subjective Notes Notes MORE CLEAR History of Present Illness Hx of present illness STABLE Vitals Vitals Vital Signs Date Time Temp Pulse Resp B/P (MAP) Pulse Ox O2 Delivery O2 Flow Rate FiO2 07/06/19 11:00 98.2 60 18 113/57 (75) 95 Room Air 98.2 Weight Weight [ ] I.O. Intake and Output Intake and Output 07/06/19 07:00 Intake Total 150 ml Output Total 30 ml Balance 120 ml Intake Oral 50 ml IV Total 100 ml Output Urine Total 30 ml # Bowel Movements 1 Labs Labs Laboratory Tests Test 07/05/19 12:01 07/05/19 17:12 07/05/19 20:23 07/06/19 05:40 Glucose (Fingerstick) 242 mg/dL (70-99) 153 mg/dL (70-99) 121 mg/dL (70-99) White Blood Count 7.1 x10^3/uL (4.0-11.0) Red Blood Count 3.09 x10^6/uL (4.30-5.70) Hemoglobin 8.8 g/dL (13.0-17.5) Hematocrit 26.7 % (39.0-53.0) Mean Corpuscular Volume 86 fL (79-100) Mean Corpuscular Hemoglobin 28 pg (25-35) Mean Corpuscular Hemoglobin Concent 33 g/dL (31-37) Red Cell Distribution Width 18.7 % (11.5-14.5) Platelet Count 336 x10^3/uL (140-400) Neutrophils (%) (Auto) 60 % (31-73) Lymphocytes (%) (Auto) 21 % (24-48) Monocytes (%) (Auto) 11 % (0-9) Eosinophils (%) (Auto) 8 % (0-3) Basophils (%) (Auto) 1 % (0-3) Neutrophils # (Auto) 4.2 x10^3/uL (1.8-7.7) Lymphocytes # (Auto) 1.4 x10^3/uL (1.0-4.8) Monocytes # (Auto) 0.8 x10^3/uL (0.0-1.1) Eosinophils # (Auto) 0.6 x10^3/uL (0.0-0.7) Basophils # (Auto) 0.1 x10^3/uL (0.0-0.2) Prothrombin Time 16.7 SEC (11.7-14.0) Prothromb Time International Ratio 1.4 (0.8-1.1) Sodium Level 138 mmol/L (136-145) Potassium Level 3.9 mmol/L (3.5-5.1) Chloride Level 100 mmol/L (98-107) Carbon Dioxide Level 28 mmol/L (21-32) Anion Gap 10 (6-14) Blood Urea Nitrogen 32 mg/dL (8-26) Creatinine 5.8 mg/dL (0.7-1.3) Estimated GFR (Cockcroft-Gault) 11.5 Glucose Level 109 mg/dL (70-99) Calcium Level 9.0 mg/dL (8.5-10.1) Test 07/06/19 08:45 Glucose (Fingerstick) 102 mg/dL (70-99) Micro Micro Microbiology 06/23/19 Urine Culture - Final, Complete 06/23/19 Urine Culture Result 1 (TEREZA) - Final, Complete 06/22/19 Blood Culture - Final, Complete NO GROWTH AFTER 5 DAYS Review of Systems Constitutional: yes: other Physical Exam General Appearance: no apparent distress Skin: warm Respiratory: bilateral CTA Heart: S1S2 Abdomen: soft, bowel sounds present Genitourinary: bladder flat Extremities: pulses present Neurology: alert, follow commands, other (oriented to self) Assessment Assessment IMP UTI ? INFECTED BKA STUMP ANEMIA DM II HTN ESRD MET ENCEPHALOPATHY DYSPHAGIA PLAN CONT ANTIBIOTICS WOUND CARE HD TODAY UF TO DW PEG PENDING NANCY LIU MD Jul 06, 2019 11:55
[2019-07-06] MEDS ORDERED: PROPOFOL 20 ML IV ONE (12:36)
[2019-07-06] MEDS ORDERED: IV NORMAL SALINE 1000ML BAG 1,000 ML IV SCH (12:45)
--- NOTE | 2019-07-06 12:54 | PDOC4 ---
PROCEDURE Procedure EGD/PEG Indication: OP dysphagia Meds: per anesthesia Findings: E--normal G--normal D--normal bulb --20F PEG placed uneventfully. Scope briefly re-introduced, confirming good placement. Ashleigh. well. IMP: successful PEG REC: water/meds per tube today Feed in AM if no issues. SAM TENORIO MD Jul 06, 2019 12:54
[2019-07-06] MEDS ORDERED: IV NORMAL SALINE 1000ML BAG 1,000 ML IV PRN ×2 (13:28)
[2019-07-06] MEDS ORDERED: ALBUMIN HUMAN 25% 200 ML IV PRN (13:30)
[2019-07-06] MEDS ORDERED: DIALYSIS PATIENT. MC PRN ×2 (13:30)
--- NOTE | 2019-07-06 16:00 | PDOC ---
Provider Note Provider Note Vascular Pt out of room for dialysis this afternoon, will check wound tomorrow. LINNEA MCCANN Jul 06, 2019 16:00
[2019-07-06 17:55] VITALS: BP 137/61
[2019-07-06] MEDS: VANCOMYCIN 500 MG in IV NORMAL SALINE 100ML 100 ML IV SCH (18:01)
[2019-07-06] MEDS: FOLIC/VIT B COMP W-C (RENAL) TABLET. PO SCH (18:02)
[2019-07-06] MEDS: PANTOPRAZOLE 40 MG TABLET.DR. PO SCH (18:02)
[2019-07-06] MEDS: CYANOCOBALAMIN (VITAMIN B-12) 1,000 MCG TABLET. PO SCH (18:02)
[2019-07-06] MEDS: ASPIRIN ENTERIC COATED 81 MG TABLET.DR. PO SCH (18:02)
[2019-07-06] MEDS: METOPROLOL SUCC 24HR ER 25 MG TAB.ER.24H. PO SCH (18:03)
[2019-07-06] MEDS: IV DEXTROSE 5 %-0.45 % NACL 1,000 ML IV SCH (18:06)
[2019-07-06] MEDS: ALLOPURINOL 100 MG TABLET. PEG SCH (18:14)
[2019-07-06 19:00] VITALS: BP 123/63
[2019-07-06] MEDS: LACTOBACILLUS RHAMNOSUS GG 1 CAPSULE. PO SCH (20:46)
[2019-07-06] MEDS: ATORVASTATIN CALCIUM 10 MG TABLET. PEG SCH (20:46)
[2019-07-06 23:00] VITALS: BP 96/46
[2019-07-07 03:00] VITALS: BP 94/49
[2019-07-07] MEDS: PIPERACILLIN/TAZOBACTAM 2.25 GM in IV NORMAL SALINE 50ML 50 ML IV SCH ×3 (05:21→21:42)
[2019-07-07 07:00] VITALS: BP 112/55
[2019-07-07] MEDS ORDERED: QUEtiapine 25 MG TABLET. PEG PRN (07:30)
--- NOTE | 2019-07-07 07:59 | PDOC ---
Infectious Disease Note Subjective Subjective Uneventful night No fevers last 24 hours ROS ROS no n/v/d/ Vital Sign Vital Signs Vital Signs Date Time Temp Pulse Resp B/P (MAP) Pulse Ox O2 Delivery O2 Flow Rate FiO2 07/07/19 07:00 96.5 59 18 112/55 (74) 99 Room Air 96.5 Physical Exam PHYSICAL EXAM GENERAL: Resting quietly LUNGS: Clear bilaterally. HEART: S1, S2. regular ABDOMEN: Soft : Finley EXTREMITIES: Right below knee amputation. Left lower extremity amputation stump has a wound vac in place. SKIN: warm to touch RESEARCH COORDINATOR: Arouses to voice RIJ (07/02) clean Labs Lab Laboratory Tests Test 07/06/19 08:45 07/06/19 18:19 07/06/19 21:15 Glucose (Fingerstick) 102 mg/dL (70-99) 79 mg/dL (70-99) 108 mg/dL (70-99) Micro Microbiology 06/23/19 Urine Culture - Final, Complete 06/23/19 Urine Culture Result 1 (TEREZA) - Final, Complete 06/22/19 Blood Culture - Final, Complete NO GROWTH AFTER 5 DAYS Objective Assessment Urinary tract infection. No leukocyte esterase or nitrite done. Not done again on repeat UA 06/24. urine had pus like appearance when Finley placement was attempted, yeast on uc likely colonization Finley now in place - cults neg Altered mental status, likely multifactorial. 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 Low-grade fevers - better Leukocytosis - improved - C-diff neg Anemia of chronic disease. Severe protein-calorie malnutrition per speech no aspiration but slow to swallow and not able to maintain adequate po Chronic atrial fibrillation. High troponin with working diagnosis of non-STEMI. Chronic sacral wound, superficial. Yeast in groin. treated Dysphagia on ngt h/o Enterobacter aerogenes, VRE, MSSA wound infection Plan Plan of Care Continue Vanc and Zosyn, renal dosing Random vanc trough 19.5 Off micafungin sed rate >130 Wound care per vascular, may need debridement, awaiting f/u Maintain aspiration precautions PEG placement Saturday Palliative consulted - aggressive measures continuing D/w nursing KELI MOLINA MD Jul 07, 2019 07:59
[2019-07-07] MEDS: INSULIN LISPRO 300 UNITS/3 ML VIAL. SQ SCH ×3 (08:00→17:00)
[2019-07-07] MEDS: HEPARIN for SUB-Q USE 5,000 UNIT/ML VIAL. SQ SCH ×2 (09:00→21:51)
[2019-07-07] MEDS ORDERED: REGADENOSON 0.4 MG/5 ML DISP.SYRIN. IV ONE (09:30)
--- NOTE | 2019-07-07 10:45 | PDOC ---
PROGRESS NOTES Subjective Subjective PEG placed yesterday. seen post stress test . no complaints Objective Objective Vital Signs Date Time Temp Pulse Resp B/P (MAP) Pulse Ox O2 Delivery O2 Flow Rate FiO2 07/07/19 07:00 96.5 59 18 112/55 (74) 99 Room Air 96.5 Intake and Output 07/07/19 07:00 Intake Total 0 ml Output Total 20 ml Balance -20 ml Intake Oral 0 ml Output Urine Total 20 ml # Bowel Movements 1 Physical Exam Abdomen: Soft Heart: Regular rate, Normal S1, Normal S2 Extremities: Other (bilateral BKA with left BKA stump wound vac) General: Alert HEENT: Atraumatic Lungs: Clear to auscultation Neuro: Normal speech Psych/Mental Status: Mood NL Skin: No rashes Assessment Assessment Problems metabolic encephalopathy. better 2. 3. Bilateral below-knee amputation. 4. left below-knee amputation stump wound infection 5. Diabetes mellitus type 2. 6. Peripheral arterial disease. 7. End-stage renal disease, on hemodialysis. m-w-f 8. paroxysmal atrial fibrillation. in nsr. not a coumadin candidate. recent hx of retroperitoneal bleed on anticoagulants and fall risk. 9. Severe protein-calorie malnutrition. 10. Anemia of chronic disease. NSTEMI oropharyngeal dysphagia on HTL pureed diet. PEG placed Medical Problems: (1) Altered mental status Status: Acute (2) Anemia in chronic illness Status: Chronic (3) CAD (coronary artery disease) Status: Chronic (4) Chronic a-fib Status: Chronic (5) DM2 (diabetes mellitus, type 2) Status: Chronic (6) ESRD (end stage renal disease) Status: Acute (7) HTN (hypertension) Status: Chronic (8) Metabolic encephalopathy Status: Acute (9) NSTEMI (non-ST elevated myocardial infarction) Status: Acute (10) Paroxysmal A-fib Status: Acute (11) Peripheral artery disease Status: Chronic (12) Severe protein-calorie malnutrition Status: Chronic (13) SSS (sick sinus syndrome) Status: Chronic (14) UTI (urinary tract infection) Status: Acute Plan Plan of Care start tube feeding d/c iv fluids hemodialysis tomorrow wound care and wound vac iv vancomycin and zosyn await stress test results Comment Review of Relevant I have reviewed the following items soumya (where applicable) has been applied. Labs Laboratory Tests Test 07/05/19 12:01 07/05/19 17:12 07/05/19 20:23 07/06/19 05:40 Glucose (Fingerstick) 242 mg/dL (70-99) 153 mg/dL (70-99) 121 mg/dL (70-99) White Blood Count 7.1 x10^3/uL (4.0-11.0) Red Blood Count 3.09 x10^6/uL (4.30-5.70) Hemoglobin 8.8 g/dL (13.0-17.5) Hematocrit 26.7 % (39.0-53.0) Mean Corpuscular Volume 86 fL (79-100) Mean Corpuscular Hemoglobin 28 pg (25-35) Mean Corpuscular Hemoglobin Concent 33 g/dL (31-37) Red Cell Distribution Width 18.7 % (11.5-14.5) Platelet Count 336 x10^3/uL (140-400) Neutrophils (%) (Auto) 60 % (31-73) Lymphocytes (%) (Auto) 21 % (24-48) Monocytes (%) (Auto) 11 % (0-9) Eosinophils (%) (Auto) 8 % (0-3) Basophils (%) (Auto) 1 % (0-3) Neutrophils # (Auto) 4.2 x10^3/uL (1.8-7.7) Lymphocytes # (Auto) 1.4 x10^3/uL (1.0-4.8) Monocytes # (Auto) 0.8 x10^3/uL (0.0-1.1) Eosinophils # (Auto) 0.6 x10^3/uL (0.0-0.7) Basophils # (Auto) 0.1 x10^3/uL (0.0-0.2) Prothrombin Time 16.7 SEC (11.7-14.0) Prothromb Time International Ratio 1.4 (0.8-1.1) Sodium Level 138 mmol/L (136-145) Potassium Level 3.9 mmol/L (3.5-5.1) Chloride Level 100 mmol/L (98-107) Carbon Dioxide Level 28 mmol/L (21-32) Anion Gap 10 (6-14) Blood Urea Nitrogen 32 mg/dL (8-26) Creatinine 5.8 mg/dL (0.7-1.3) Estimated GFR (Cockcroft-Gault) 11.5 Glucose Level 109 mg/dL (70-99) Calcium Level 9.0 mg/dL (8.5-10.1) Test 07/06/19 08:45 07/06/19 18:19 07/06/19 21:15 Glucose (Fingerstick) 102 mg/dL (70-99) 79 mg/dL (70-99) 108 mg/dL (70-99) Laboratory Tests Test 07/06/19 18:19 07/06/19 21:15 Glucose (Fingerstick) 79 mg/dL (70-99) 108 mg/dL (70-99) Microbiology 06/23/19 Urine Culture - Final, Complete 06/23/19 Urine Culture Result 1 (TEREZA) - Final, Complete 06/22/19 Blood Culture - Final, Complete NO GROWTH AFTER 5 DAYS Medications Current Medications Vancomycin HCl 250 ml @ 250 mls/hr 1X ONCE IV ; Start 06/22/19 at 10:45; Stop 06/22/19 at 11:44; Status UNV Piperacillin Sod/ Tazobactam Sod 2.25 gm/Sodium Chloride 50 ml @ 100 mls/hr 1X ONCE IV Last administered on 06/22/19at 11:55; Start 06/22/19 at 10:45; Stop 06/22/19 at 11:14; Status DC Sodium Chloride 1,000 ml @ 100 mls/hr Q10H IV Last administered on 06/22/19at 11:55; Start 06/22/19 at 10:38; Stop 06/22/19 at 20:37; Status DC Vancomycin HCl 2 gm/Sodium Chloride 500 ml @ 250 mls/hr 1X ONCE IV Last administered on 06/22/19at 12:32; Start 06/22/19 at 11:30; Stop 06/22/19 at 13:29; Status DC Info (PHARMACY MONITORING -- do not chart) 1 each PRN DAILY PRN MC SEE COMMENTS; Start 06/22/19 at 16:30; Stop 06/24/19 at 11:38; Status DC Info (PHARMACY MONITORING -- do not chart) 1 each PRN DAILY PRN MC SEE COMMENTS; Start 06/22/19 at 16:30; Status UNV Sodium Chloride 1,000 ml @ 40 mls/hr Q24H IV Last administered on 06/24/19at 18:31; Start 06/22/19 at 17:30; Stop 06/25/19 at 19:44; Status DC Vancomycin HCl (Vanco Per Pharmacy) 1 each PRN DAILY PRN MC SEE COMMENTS Last administered on 07/06/19at 10:24; Start 06/22/19 at 17:30 Piperacillin Sod/ Tazobactam Sod (Zosyn Per Pharmacy) 1 each PRN DAILY PRN MC SEE COMMENTS; Start 06/22/19 at 17:30 Acetaminophen (Tylenol) 650 mg PRN Q6HRS PRN PO MILD PAIN / TEMP; Start 06/22/19 at 17:30; Stop 06/25/19 at 18:15; Status DC Ondansetron HCl (Zofran) 4 mg PRN Q6HRS PRN IV NAUSEA/VOMITING; Start 06/22/19 at 17:30 Clopidogrel Bisulfate (Plavix) 75 mg DAILYWBKFT PO Last administered on 07/02/19at 10:00; Start 06/23/19 at 08:00; Stop 07/02/19 at 14:26; Status DC Vitamin B Complex/ Vitamin C (Carlos-Moses) 1 tab DAILY PO Last administered on 07/06/19at 18:06; Start 06/23/19 at 09:00; Stop 07/07/19 at 07:30; Status DC Allopurinol (Zyloprim) 100 mg DAILY PO ; Start 06/23/19 at 09:00; Stop 06/25/19 at 18:17; Status DC Atorvastatin Calcium (Lipitor) 40 mg QHS PO Last administered on 06/22/19at 21:37; Start 06/22/19 at 21:00; Stop 06/25/19 at 12:19; Status DC Pantoprazole Sodium (Protonix) 40 mg DAILYAC PO Last administered on 07/06/19at 18:06; Start 06/23/19 at 07:30 Cyanocobalamin (Vitamin B-12) 1,000 mcg DAILY PO Last administered on 07/06/19at 18:06; Start 06/23/19 at 09:00; Stop 07/07/19 at 07:30; Status DC Piperacillin Sod/ Tazobactam Sod 2.25 gm/Sodium Chloride 50 ml @ 100 mls/hr Q8HRS IV Last administered on 07/07/19at 05:21; Start 06/22/19 at 21:00 Heparin Sodium (Porcine) (Heparin Sodium) 5,000 unit BID SQ Last administered on 06/22/19at 21:37; Start 06/22/19 at 21:00; Stop 06/23/19 at 08:23; Status DC Insulin Human Lispro (HumaLOG) 0-6 UNITS BG 400-49... TIDWMEALS SQ Last administered on 07/05/19at 12:23; Start 06/23/19 at 08:00 Vancomycin HCl (Vancomycin Random Level) 1 each 1X ONCE MC Last administered on 06/24/19at 06:37; Start 06/24/19 at 06:00; Stop 06/24/19 at 06:01; Status DC Heparin Sodium/ Dextrose 500 ml @ 19.3 mls/hr CONT PRN IV SEE I/O RECORD; Start 06/23/19 at 08:30; Stop 06/23/19 at 14:53; Status DC Heparin Sodium (Porcine) (Heparin Sodium) 2,000 unit PRN Q6HRS PRN IV FOR UFH LEVEL LESS THAN 0.2; Start 06/23/19 at 08:30; Stop 06/23/19 at 14:53; Status DC Aspirin (Ecotrin) 325 mg 1X ONCE PO ; Start 06/23/19 at 10:30; Stop 06/23/19 at 10:31; Status DC Aspirin (Ecotrin) 81 mg DAILYWBKFT PO ; Start 06/24/19 at 08:00; Stop 06/25/19 at 18:16; Status DC Ondansetron HCl (Zofran) 4 mg PRN Q6HRS PRN IV NAUSEA/VOMITING; Start 06/24/19 at 07:00; Stop 06/25/19 at 06:59; Status DC Morphine Sulfate (Morphine Sulfate) 1 mg PRN Q10MIN PRN IV SEVERE PAIN 7-10; Start 06/24/19 at 07:00; Stop 06/24/19 at 10:06; Status DC Ringer's Solution 1,000 ml @ 30 mls/hr Q24H IV ; Start 06/24/19 at 07:00; Stop 06/24/19 at 18:59; Status DC Lidocaine HCl (Xylocaine-Mpf 1% 2ml Vial) 2 ml PRN 1X PRN ID PRIOR TO IV START; Start 06/24/19 at 07:00; Stop 06/25/19 at 06:59; Status DC Hydromorphone HCl (Dilaudid) 0.5 mg PRN Q10MIN PRN IV SEV PAIN, Second choice; Start 06/24/19 at 07:00; Stop 06/24/19 at 10:06; Status DC Info (Anti-Coagulation Monitoring By Pharmacy) 1 each PRN DAILY PRN MC SEE COMMENTS Last administered on 06/30/19at 10:17; Start 06/23/19 at 14:30; Stop 06/30/19 at 10:22; Status DC Enoxaparin Sodium (Lovenox Per Pharmacy Treatment Dosing) 1 each 1X PRN MC SEE COMMENTS; Start 06/23/19 at 14:45; Stop 06/23/19 at 21:00; Status DC Enoxaparin Sodium (Lovenox 80mg Syringe) 80 mg 1X ONCE SQ Last administered on 06/23/19at 15:16; Start 06/23/19 at 15:30; Stop 06/23/19 at 15:31; Status DC Heparin Sodium (Porcine) (Heparin Sodium) 5,000 unit Q12HR SQ Last administered on 07/05/19at 20:42; Start 06/24/19 at 11:00 Acetaminophen (Tylenol Supp) 650 mg PRN Q6HRS PRN CA MILD PAIN / TEMP Last administered on 06/24/19at 23:03; Start 06/24/19 at 10:30; Stop 06/28/19 at 11:19; Status DC Tramadol HCl (Ultram) 25 mg PRN Q6HRS PRN PO PAIN MODERATE PAIN Last administered on 07/02/19at 12:40; Start 06/24/19 at 10:30; Stop 07/07/19 at 07 :30; Status DC Ketorolac Tromethamine (Toradol 15mg Vial) 15 mg PRN Q6HRS PRN IV PAIN Last administered on 06/28/19at 17:19; Start 06/24/19 at 10:30; Stop 06/29/19 at 10:29; Status DC Sodium Chloride 1,000 ml @ 1,000 mls/hr Q1H PRN IV hypotension; Start 06/24/19 at 11:27; Stop 06/24/19 at 17:26; Status DC Sodium Chloride 1,000 ml @ 400 mls/hr Q2H30M PRN IV PATENCY; Start 06/24/19 at 11:27; Stop 06/24/19 at 23:26; Status DC Info (PHARMACY MONITORING -- do not chart) 1 each PRN DAILY PRN MC SEE COMMENT S; Start 06/24/19 at 11:30; Status Cancel Info (PHARMACY MONITORING -- do not chart) 1 each PRN DAILY PRN MC SEE COMMENTS; Start 06/24/19 at 11:30; Status UNV Vancomycin HCl 500 mg/Sodium Chloride 100 ml @ 100 mls/hr QMWF IV Last administered on 07/06/19at 18:06; Start 06/24/19 at 16:00 Dextrose (Dextrose 50%-Water Syringe) 12.5 gm PRN Q15MIN PRN IV SEE COMMENTS Last administered on 06/25/19at 01:41; Start 06/25/19 at 01:30 Dextrose 250 ml PRN Q15MIN PRN IV SEE COMMENTS; Start 06/25/19 at 01:30 Micafungin Sodium 100 mg/Dextrose 100 ml @ 100 mls/hr Q24H IV Last administered on 07/02/19at 16:45; Start 06/25/19 at 09:00; Stop 07/03/19 at 08:21; Status DC Metoprolol Tartrate (Lopressor Vial) 2.5 mg Q6HRS IVP Last administered on 06/27/19at 17:59; Start 06/25/19 at 18:00; Stop 06/28/19 at 11:19; Status DC Atorvastatin Calcium (Lipitor) 10 mg QHS PEG Last administered on 07/06/19at 20:46; Start 06/25/19 at 21:00 Ondansetron HCl (Zofran) 4 mg PRN Q6HRS PRN IV NAUSEA/VOMITING; Start 06/26/19 at 07:00; Stop 06/27/19 at 06:59; Status DC Morphine Sulfate (Morphine Sulfate) 1 mg PRN Q10MIN PRN IV SEVERE PAIN 7-10; Start 06/26/19 at 07:00; Stop 06/27/19 at 06:59; Status DC Ringer's Solution 1,000 ml @ 30 mls/hr Q24H IV ; Start 06/26/19 at 07:00; Stop 06/26/19 at 18:59; Status DC Lidocaine HCl (Xylocaine-Mpf 1% 2ml Vial) 2 ml PRN 1X PRN ID PRIOR TO IV START; Start 06/26/19 at 07:00; Stop 06/27/19 at 06:59; Status DC Hydromorphone HCl (Dilaudid) 0.5 mg PRN Q10MIN PRN IV SEV PAIN, Second choice; Start 06/26/19 at 07:00; Stop 06/27/19 at 06:59; Status DC Acetaminophen (Tylenol) 650 mg PRN Q6HRS PRN PEG MILD PAIN / TEMP Last administered on 07/02/19at 21:00; Start 06/25/19 at 18:15 Aspirin (Children'S Aspirin) 81 mg DAILYWBKFT PEG Last administered on 07/03/19at 14:09; Start 06/26/19 at 08:00; Stop 07/03/19 at 15:55; Status DC Allopurinol (Zyloprim) 100 mg DAILY PEG Last administered on 07/06/19at 18:20; Start 06/25/19 at 18:17 Quetiapine Fumarate (SEROquel) 12.5 mg PRN Q8HRS PRN PO PSYCHOTIC BEHAVIOR Last administered on 07/05/19at 20:37; Start 06/25/19 at 19:45; Stop 07/07/19 at 07:30; Status DC Vitamin A/Vitamin D (Vitamin A & D Ointment) 1 héctor PRN BID PRN TP SKIN PROTECTION Last administered on 07/02/19at 10:00; Start 06/26/19 at 06:00 Sodium Chloride 1,000 ml @ 1,000 mls/hr Q1H PRN IV hypotension; Start 06/26/19 at 12:41; Stop 06/26/19 at 18:40; Status DC Info (PHARMACY MONITORING -- do not chart) 1 each PRN DAILY PRN MC SEE COMMENTS; Start 06/26/19 at 12:45; Status UNV Info (PHARMACY MONITORING -- do not chart) 1 each PRN DAILY PRN MC SEE COMMENTS; Start 06/26/19 at 12:45; Status Cancel Sodium Chloride 1,000 ml @ 1,000 mls/hr Q1H PRN IV hypotension; Start 06/29/19 at 12:00; Stop 06/29/19 at 17:59; Status DC Sodium Chloride 1,000 ml @ 400 mls/hr Q2H30M PRN IV PATENCY; Start 06/29/19 at 12:00; Stop 06/29/19 at 23:59; Status DC Info (PHARMACY MONITORING -- do not chart) 1 each PRN DAILY PRN MC SEE COMMENTS; Start 06/29/19 at 16:00; Status UNV Info (PHARMACY MONITORING -- do not chart) 1 each PRN DAILY PRN MC SEE COMMENTS; Start 06/29/19 at 16:00; Status Cancel Info (PHARMACY MONITORING -- do not chart) 1 each PRN DAILY PRN MC SEE COMMENTS; Start 07/01/19 at 14:00; Status UNV Info (PHARMACY MONITORING -- do not chart) 1 each PRN DAILY PRN MC SEE C OMMENTS; Start 07/01/19 at 14:00; Stop 07/03/19 at 07:29; Status DC Darbepoetin Chito (ARANESP for DIALYSIS PTS) 60 mcg WEEKLYHS SQ Last administered on 07/01/19at 21:48; Start 07/01/19 at 21:00 Vancomycin HCl (Vancomycin Random Level) 1 each 1X ONCE MC Last administered on 07/03/19at 06:19; Start 07/03/19 at 06:00; Stop 07/03/19 at 06:01; Status DC Lidocaine/Sodium Bicarbonate (Buffered Lidocaine 1%) 3 ml STK-MED ONCE .ROUTE ; Start 07/02/19 at 15:27; Stop 07/02/19 at 15:28; Status DC Dextrose/Sodium Chloride 1,000 ml @ 40 mls/hr Q24H IV Last administered on 07/06/19at 18:06; Start 07/02/19 at 17:00 Sodium Chloride 1,000 ml @ 1,000 mls/hr Q1H PRN IV hypotension; Start 07/03/19 at 07:18; Stop 07/03/19 at 13:17; Status DC Albumin Human 200 ml @ 200 mls/hr 1X PRN PRN IV Hypotension; Start 07/03/19 at 07:30; Stop 07/03/19 at 13:29; Status DC Acetaminophen (Tylenol) 500 mg 1X PRN PRN PO MILD PAIN / TEMP; Start 07/03/19 at 07:30; Stop 07/04/19 at 07:29; Status DC Diphenhydramine HCl (Benadryl) 25 mg 1X PRN PRN IV ITCHING; Start 07/03/19 at 07:30; Stop 07/04/19 at 07:29; Status DC Diphenhydramine HCl (Benadryl) 25 mg 1X PRN PRN IV ITCHING; Start 07/03/19 at 07:30; Stop 07/04/19 at 07:29; Status DC Sodium Chloride 1,000 ml @ 400 mls/hr Q2H30M PRN IV PATENCY; Start 07/03/19 at 07:18; Stop 07/03/19 at 19:17; Status DC Info (PHARMACY MONITORING -- do not chart) 1 each PRN DAILY PRN MC SEE COMMENTS; Start 07/03/19 at 07:30 Info (PHARMACY MONITORING -- do not chart) 1 each PRN DAILY PRN MC SEE COMMENTS; Start 07/03/19 at 07:30; Status UNV Ondansetron HCl (Zofran) 4 mg PRN Q6HRS PRN IV NAUSEA/VOMITING; Start 07/06/19 at 07:00; Stop 07/07/19 at 06:59; Status DC Morphine Sulfate (Morphine Sulfate) 1 mg PRN Q10MIN PRN IV SEVERE PAIN 7-10; Start 07/06/19 at 07:00; Stop 07/07/19 at 06:59; Status DC Ringer's Solution 1,000 ml @ 30 mls/hr Q24H IV ; Start 07/06/19 at 07:00; Stop 07/06/19 at 18:59; Status DC Lidocaine HCl (Xylocaine-Mpf 1% 2ml Vial) 2 ml PRN 1X PRN ID PRIOR TO IV START; Start 07/06/19 at 07:00; Stop 07/07/19 at 06:59; Status DC Hydromorphone HCl (Dilaudid) 0.5 mg PRN Q10MIN PRN IV SEV PAIN, Second choice; Start 07/06/19 at 07:00; Stop 07/07/19 at 06:59; Status DC Metoprolol Succinate (Toprol Xl) 12.5 mg DAILY PO Last administered on at 18:06; Start 07/03/19 at 16:30 Aspirin (Ecotrin) 81 mg DAILYWBKFT PO Last administered on 07/06/19at 18:06; Start 07/04/19 at 08:00 Lactobacillus Rhamnosus (Culturelle) 1 cap BID PO Last administered on 07/06/19at 20:46; Start 07/06/19 at 21:00 Sodium Chloride 1,000 ml @ 100 mls/hr Q10H IV Last administered on 07/06/19at 12:58; Start 07/06/19 at 12:45 Propofol 20 ml @ As Directed STK-MED ONCE IV ; Start 07/06/19 at 12:36; Stop 07/06/19 at 12:36; Status DC Sodium Chloride 1,000 ml @ 1,000 mls/hr Q1H PRN IV hypotension; Start 07/06/19 at 13:28; Stop 07/06/19 at 19:27; Status DC Albumin Human 200 ml @ 200 mls/hr 1X PRN PRN IV Hypotension; Start 07/06/19 at 13:30; Stop 07/06/19 at 19:29; Status DC Sodium Chloride 1,000 ml @ 400 mls/hr Q2H30M PRN IV PATENCY; Start 07/06/19 at 13:28; Stop 07/07/19 at 01:27; Status DC Info (PHARMACY MONITORING -- do not chart) 1 each PRN DAILY PRN MC SEE COMMENTS; Start 07/06/19 at 13:30; Stop 07/06/19 at 13:41; Status DC Info (PHARMACY MONITORING -- do not chart) 1 each PRN DAILY PRN MC SEE COMMENTS; Start 07/06/19 at 13:30; Stop 07/06/19 at 13:41; Status DC Cyanocobalamin (Vitamin B-12) 1,000 mcg DAILY PEG ; Start 07/07/19 at 08:00 Vitamin B Complex/ Vitamin C (Carlos-Moses) 1 tab DAILY PEG ; Start 07/07/19 at 08:00 Quetiapine Fumarate (SEROquel) 12.5 mg PRN Q8HRS PRN PEG PSYCHOTIC BEHAVIOR; Start 07/07/19 at 07:30 Tramadol HCl (Ultram) 25 mg PRN Q6HRS PRN PEG PAIN MODERATE PAIN; Start 07/07/19 at 07:30 Regadenoson (Lexiscan) 0.4 mg 1X ONCE IV ; Start 07/07/19 at 09:30; Stop 07/07/19 at 09:31; Status DC Active Scripts Active [place] 5-325 Tablet (Acetaminophen/Hydrocodone Bitart) 1 Each Tablet 0.5 Tab PO Q4HRS Zyvox (Linezolid) 600 Mg Tablet 600 Mg PO BID 4 Days Amox Tr-K Clv 500-125 Mg Tab (Amoxicillin/Potassium Clav) 1 Each Tablet 1 Tab PO DAILY 4 Days Tramadol Hcl 50 Mg Tablet 50 Mg PO PRN Q6HRS PRN Ondansetron Odt (Ondansetron) 4 Mg Tab.rapdis 4 Mg PO Q6HRS PRN Humalog (Insulin Lispro) 100 Unit/1 Ml Insuln.pen 0 Units SQ TIDWMEALS 30 Days BG 150-199= 1 units 200-299= 2 units 300-399= 4 units 400-499= 6 units ac tid sliding scale Reported Omeprazole 20 Mg Tablet.dr 1 Tab PO DAILY Vitamin D3 (Cholecalciferol (Vitamin D3)) 1,000 Unit Tablet 1 Tab PO DAILY Vitamin B-12 (Cyanocobalamin (Vitamin B-12)) 1,000 Mcg Tablet 1 Tab PO DAILY Senna (Sennosides) 8.6 Mg Tablet 8.6 Mg PO PRN DAILY PRN 2 tabs Renvela (Sevelamer Carbonate) 800 Mg Tablet 800 Mg PO TIDWMEALS Renal Caps Softgel (Folic Acid/Vitamin B Comp W-C) 1 Mg Capsule 1 Mg PO DAILY Reglan (Metoclopramide Hcl) 10 Mg Tablet 5 Mg PO TID Probiotic (Lactobacillus Acidophilus) 1 Each Capsule 1 Each PO BID Milk Of Magnesia (Magnesium Hydroxide) 400 Mg/5 Ml Oral.susp 400 Mg PO PRN DAILY PRN Lipitor (Atorvastatin Calcium) 40 Mg Tablet 1 Tab PO QHS Humalog (Insulin Lispro) 100 Unit/1 Ml Insuln.pen 100 Unit SQ TIDBFRMEAL 150-199=1 unit 200-299=2 units 300-399=4 units 100-499=6 units Clopidogrel (Clopidogrel Bisulfate) 75 Mg Tablet 1 Tab PO DAILY Duoneb 0.5-3(2.5) Mg/3 Ml (Albuterol/Ipratropium) 3 Ml Ampul.neb 3 Ml NEB PRN Q4HRS PRN Lac-Hydrin Five (Ammonium Lactate) 226 Gm Lotion 226 Gm TP BID Allopurinol 100 Mg Tablet 1 Tab PO DAILY Tylenol (Acetaminophen) 325 Mg Tablet 1 Tab PO PRN Q4HRS Aspirin 81 Mg Tab.chew 81 Mg PO DAILY Vitals/I & O Vital Sign - Last 24 Hours 07/06/19 07/06/19 07/06/19 07/06/19 11:00 12:35 13:00 13:15 Temp 98.2 97.3 98.2 97.3 Pulse 60 76 67 60 Resp 18 20 16 20 B/P (MAP) 113/57 (75) 99/53 98/59 Pulse Ox 95 96 98 99 O2 Delivery Room Air Room Air Room Air Room Air 07/06/19 07/06/19 07/06/19 07/06/19 13:30 15:00 17:55 18:06 Temp 97.3 97.3 Pulse 62 62 62 Resp 20 B/P (MAP) 112/61 137/61 (86) 137/61 Pulse Ox 99 99 O2 Delivery Room Air Room Air 07/06/19 07/06/19 07/06/19 07/07/19 19:00 20:00 23:00 03:00 Temp 97.4 97.4 97.7 97.4 97.4 97.7 Pulse 69 60 57 Resp 20 20 20 B/P (MAP) 123/63 (83) 96/46 (63) 94/49 (64) Pulse Ox 90 97 92 O2 Delivery Room Air Room Air Room Air Room Air 07/07/19 07:00 Temp 96.5 96.5 Pulse 59 Resp 18 B/P (MAP) 112/55 (74) Pulse Ox 99 O2 Delivery Room Air Intake and Output 07/06/19 07/06/19 07/07/19 15:00 23:00 07:00 Intake Total 0 ml Output Total 20 ml Balance -20 ml Nutrition Consultation Dietary Evaluation: Recommendations by RD: Increase Calorie Intake, Protein supplementation Comments: Continue w/dysphagia I diet w/honey thick liquids per CORROSION CONTROL ENGINEER, recommend Magic cup supplements TID Continue w/carlos-moses for wound healing Will re-order TF s/p PEG placement, recommend resume Nepro@goal rate 40 ml/hr w/200 ml water flushes q4 hrs or flushes per REC Marcell BID via PEG tube Expected Outcomes/Goals: New goal 06/30: TF infusion + PO intake to meet >75% est needs - met at times, goal ongoing Malnutrition Findings: Food and Nutrition Intake (Sev: <50% est energy req 5days Weight Status: Appropriate SAM OLMOS MD Jul 07, 2019 10:44
[2019-07-07] MEDS: VANCOMYCIN PER PHARMACY MC PRN (10:56)
[2019-07-07 11:00] VITALS: BP 104/41
[2019-07-07] MEDS: CYANOCOBALAMIN (VITAMIN B-12) 1,000 MCG TABLET. PEG SCH (11:57)
[2019-07-07] MEDS: FOLIC/VIT B COMP W-C (RENAL) TABLET. PEG SCH (11:58)
[2019-07-07] MEDS: LACTOBACILLUS RHAMNOSUS GG 1 CAPSULE. PO SCH ×2 (11:58→21:42)
[2019-07-07] MEDS: PANTOPRAZOLE 40 MG TABLET.DR. PO SCH (11:58)
[2019-07-07] MEDS: METOPROLOL SUCC 24HR ER 25 MG TAB.ER.24H. PO SCH (11:58)
[2019-07-07] MEDS: ASPIRIN ENTERIC COATED 81 MG TABLET.DR. PO SCH (11:58)
[2019-07-07] MEDS: ALLOPURINOL 100 MG TABLET. PEG SCH (11:59)
--- NOTE | 2019-07-07 13:13 | PDOC ---
PROGRESS NOTES Objective Objective Vascular Surgery Follow Up: I spoke with RN. Patient is off the floor having stress test. He did get PEG tube placed yesterday. Vascular Surgery will plan to look at the wound and remove vac dressing tomorrow to decide on if further debridement is required. Vital Signs Date Time Temp Pulse Resp B/P (MAP) Pulse Ox O2 Delivery O2 Flow Rate FiO2 07/07/19 12:10 59 112/55 07/07/19 11:00 98.1 16 95 Room Air 98.1 Intake and Output 07/07/19 07:00 Intake Total 0 ml Output Total 20 ml Balance -20 ml Intake Oral 0 ml Output Urine Total 20 ml # Bowel Movements 1 Assessment Assessment Problems Medical Problems: (1) Altered mental status Status: Acute (2) Anemia in chronic illness Status: Chronic (3) CAD (coronary artery disease) Status: Chronic (4) Chronic a-fib Status: Chronic (5) DM2 (diabetes mellitus, type 2) Status: Chronic (6) ESRD (end stage renal disease) Status: Acute (7) HTN (hypertension) Status: Chronic (8) Metabolic encephalopathy Status: Acute (9) NSTEMI (non-ST elevated myocardial infarction) Status: Acute (10) Paroxysmal A-fib Status: Acute (11) Peripheral artery disease Status: Chronic (12) Severe protein-calorie malnutrition Status: Chronic (13) SSS (sick sinus syndrome) Status: Chronic (14) UTI (urinary tract infection) Status: Acute Comment Review of Relevant I have reviewed the following items soumya (where applicable) has been applied. Labs Laboratory Tests Test 07/05/19 17:12 07/05/19 20:23 07/06/19 05:40 07/06/19 08:45 Glucose (Fingerstick) 153 mg/dL (70-99) 121 mg/dL (70-99) 102 mg/dL (70-99) White Blood Count 7.1 x10^3/uL (4.0-11.0) Red Blood Count 3.09 x10^6/uL (4.30-5.70) Hemoglobin 8.8 g/dL (13.0-17.5) Hematocrit 26.7 % (39.0-53.0) Mean Corpuscular Volume 86 fL (79-100) Mean Corpuscular Hemoglobin 28 pg (25-35) Mean Corpuscular Hemoglobin Concent 33 g/dL (31-37) Red Cell Distribution Width 18.7 % (11.5-14.5) Platelet Count 336 x10^3/uL (140-400) Neutrophils (%) (Auto) 60 % (31-73) Lymphocytes (%) (Auto) 21 % (24-48) Monocytes (%) (Auto) 11 % (0-9) Eosinophils (%) (Auto) 8 % (0-3) Basophils (%) (Auto) 1 % (0-3) Neutrophils # (Auto) 4.2 x10^3/uL (1.8-7.7) Lymphocytes # (Auto) 1.4 x10^3/uL (1.0-4.8) Monocytes # (Auto) 0.8 x10^3/uL (0.0-1.1) Eosinophils # (Auto) 0.6 x10^3/uL (0.0-0.7) Basophils # (Auto) 0.1 x10^3/uL (0.0-0.2) Prothrombin Time 16.7 SEC (11.7-14.0) Prothromb Time International Ratio 1.4 (0.8-1.1) Sodium Level 138 mmol/L (136-145) Potassium Level 3.9 mmol/L (3.5-5.1) Chloride Level 100 mmol/L (98-107) Carbon Dioxide Level 28 mmol/L (21-32) Anion Gap 10 (6-14) Blood Urea Nitrogen 32 mg/dL (8-26) Creatinine 5.8 mg/dL (0.7-1.3) Estimated GFR (Cockcroft-Gault) 11.5 Glucose Level 109 mg/dL (70-99) Calcium Level 9.0 mg/dL (8.5-10.1) Test 07/06/19 18:19 07/06/19 21:15 07/07/19 08:48 07/07/19 12:10 Glucose (Fingerstick) 79 mg/dL (70-99) 108 mg/dL (70-99) 98 mg/dL (70-99) 111 mg/dL (70-99) Laboratory Tests Test 07/06/19 18:19 07/06/19 21:15 07/07/19 08:48 07/07/19 12:10 Glucose (Fingerstick) 79 mg/dL (70-99) 108 mg/dL (70-99) 98 mg/dL (70-99) 111 mg/dL (70-99) Microbiology 06/23/19 Urine Culture - Final, Complete 06/23/19 Urine Culture Result 1 (TEREZA) - Final, Complete 06/22/19 Blood Culture - Final, Complete NO GROWTH AFTER 5 DAYS Medications Current Medications Vancomycin HCl 250 ml @ 250 mls/hr 1X ONCE IV ; Start 06/22/19 at 10:45; Stop 06/22/19 at 11:44; Status UNV Piperacillin Sod/ Tazobactam Sod 2.25 gm/Sodium Chloride 50 ml @ 100 mls/hr 1X ONCE IV Last administered on 06/22/19at 11:55; Start 06/22/19 at 10:45; Stop 06/22/19 at 11:14; Status DC Sodium Chloride 1,000 ml @ 100 mls/hr Q10H IV Last administered on 06/22/19at 11:55; Start 06/22/19 at 10:38; Stop 06/22/19 at 20:37; Status DC Vancomycin HCl 2 gm/Sodium Chloride 500 ml @ 250 mls/hr 1X ONCE IV Last administered on 06/22/19at 12:32; Start 06/22/19 at 11:30; Stop 06/22/19 at 13:29; Status DC Info (PHARMACY MONITORING -- do not chart) 1 each PRN DAILY PRN MC SEE COMMENTS; Start 06/22/19 at 16:30; Stop 06/24/19 at 11:38; Status DC Info (PHARMACY MONITORING -- do not chart) 1 each PRN DAILY PRN MC SEE COMMENTS; Start 06/22/19 at 16:30; Status UNV Sodium Chloride 1,000 ml @ 40 mls/hr Q24H IV Last administered on 06/24/19at 18:31; Start 06/22/19 at 17:30; Stop 06/25/19 at 19:44; Status DC Vancomycin HCl (Vanco Per Pharmacy) 1 each PRN DAILY PRN MC SEE COMMENTS Last administered on 07/07/19at 10:58; Start 06/22/19 at 17:30 Piperacillin Sod/ Tazobactam Sod (Zosyn Per Pharmacy) 1 each PRN DAILY PRN MC SEE COMMENTS; Start 06/22/19 at 17:30 Acetaminophen (Tylenol) 650 mg PRN Q6HRS PRN PO MILD PAIN / TEMP; Start 06/22/19 at 17:30; Stop 06/25/19 at 18:15; Status DC Ondansetron HCl (Zofran) 4 mg PRN Q6HRS PRN IV NAUSEA/VOMITING; Start 06/22/19 at 17:30 Clopidogrel Bisulfate (Plavix) 75 mg DAILYWBKFT PO Last administered on 07/02/19at 10:00; Start 06/23/19 at 08:00; Stop 07/02/19 at 14:26; Status DC Vitamin B Complex/ Vitamin C (Carlos-Moses) 1 tab DAILY PO Last administered on 07/06/19at 18:06; Start 06/23/19 at 09:00; Stop 07/07/19 at 07:30; Status DC Allopurinol (Zyloprim) 100 mg DAILY PO ; Start 06/23/19 at 09:00; Stop 06/25/19 at 18:17; Status DC Atorvastatin Calcium (Lipitor) 40 mg QHS PO Last administered on 06/22/19at 21:37; Start 06/22/19 at 21:00; Stop 06/25/19 at 12:19; Status DC Pantoprazole Sodium (Protonix) 40 mg DAILYAC PO Last administered on 07/07/19at 12:10; Start 06/23/19 at 07:30 Cyanocobalamin (Vitamin B-12) 1,000 mcg DAILY PO Last administered on 07/06/19at 18:06; Start 06/23/19 at 09:00; Stop 07/07/19 at 07:30; Status DC Piperacillin Sod/ Tazobactam Sod 2.25 gm/Sodium Chloride 50 ml @ 100 mls/hr Q8HRS IV Last administered on 07/07/19at 05:21; Start 06/22/19 at 21:00 Heparin Sodium (Porcine) (Heparin Sodium) 5,000 unit BID SQ Last administered on 06/22/19at 21:37; Start 06/22/19 at 21:00; Stop 06/23/19 at 08:23; Status DC Insulin Human Lispro (HumaLOG) 0-6 UNITS BG 400-49... TIDWMEALS SQ Last administered on 07/05/19at 12:23; Start 06/23/19 at 08:00 Vancomycin HCl (Vancomycin Random Level) 1 each 1X ONCE MC Last administered on 06/24/19at 06:37; Start 06/24/19 at 06:00; Stop 06/24/19 at 06:01; Status DC Heparin Sodium/ Dextrose 500 ml @ 19.3 mls/hr CONT PRN IV SEE I/O RECORD; Start 06/23/19 at 08:30; Stop 06/23/19 at 14:53; Status DC Heparin Sodium (Porcine) (Heparin Sodium) 2,000 unit PRN Q6HRS PRN IV FOR UFH LEVEL LESS THAN 0.2; Start 06/23/19 at 08:30; Stop 06/23/19 at 14:53; Status DC Aspirin (Ecotrin) 325 mg 1X ONCE PO ; Start 06/23/19 at 10:30; Stop 06/23/19 at 10:31; Status DC Aspirin (Ecotrin) 81 mg DAILYWBKFT PO ; Start 06/24/19 at 08:00; Stop 06/25/19 at 18:16; Status DC Ondansetron HCl (Zofran) 4 mg PRN Q6HRS PRN IV NAUSEA/VOMITING; Start 06/24/19 at 07:00; Stop 06/25/19 at 06:59; Status DC Morphine Sulfate (Morphine Sulfate) 1 mg PRN Q10MIN PRN IV SEVERE PAIN 7-10; Start 06/24/19 at 07:00; Stop 06/24/19 at 10:06; Status DC Ringer's Solution 1,000 ml @ 30 mls/hr Q24H IV ; Start 06/24/19 at 07:00; Stop 06/24/19 at 18:59; Status DC Lidocaine HCl (Xylocaine-Mpf 1% 2ml Vial) 2 ml PRN 1X PRN ID PRIOR TO IV START; Start 06/24/19 at 07:00; Stop 06/25/19 at 06:59; Status DC Hydromorphone HCl (Dilaudid) 0.5 mg PRN Q10MIN PRN IV SEV PAIN, Second choice; Start 06/24/19 at 07:00; Stop 06/24/19 at 10:06; Status DC Info (Anti-Coagulation Monitoring By Pharmacy) 1 each PRN DAILY PRN MC SEE COMMENTS Last administered on 06/30/19at 10:17; Start 06/23/19 at 14:30; Stop 06/30/19 at 10:22; Status DC Enoxaparin Sodium (Lovenox Per Pharmacy Treatment Dosing) 1 each 1X PRN MC SEE COMMENTS; Start 06/23/19 at 14:45; Stop 06/23/19 at 21:00; Status DC Enoxaparin Sodium (Lovenox 80mg Syringe) 80 mg 1X ONCE SQ Last administered on 06/23/19at 15:16; Start 06/23/19 at 15:30; Stop 06/23/19 at 15:31; Status DC Heparin Sodium (Porcine) (Heparin Sodium) 5,000 unit Q12HR SQ Last administered on 07/05/19at 20:42; Start 06/24/19 at 11:00 Acetaminophen (Tylenol Supp) 650 mg PRN Q6HRS PRN ME MILD PAIN / TEMP Last admi nistered on 06/24/19at 23:03; Start 06/24/19 at 10:30; Stop 06/28/19 at 11:19; Status DC Tramadol HCl (Ultram) 25 mg PRN Q6HRS PRN PO PAIN MODERATE PAIN Last administered on 07/02/19at 12:40; Start 06/24/19 at 10:30; Stop 07/07/19 at 07:30; Status DC Ketorolac Tromethamine (Toradol 15mg Vial) 15 mg PRN Q6HRS PRN IV PAIN Last administered on 06/28/19at 17:19; Start 06/24/19 at 10:30; Stop 06/29/19 at 10:29; Status DC Sodium Chloride 1,000 ml @ 1,000 mls/hr Q1H PRN IV hypotension; Start 06/24/19 at 11:27; Stop 06/24/19 at 17:26; Status DC Sodium Chloride 1,000 ml @ 400 mls/hr Q2H30M PRN IV PATENCY; Start 06/24/19 at 11:27; Stop 06/24/19 at 23:26; Status DC Info (PHARMACY MONITORING -- do not chart) 1 each PRN DAILY PRN MC SEE COMMENTS; Start 06/24/19 at 11:30; Status Cancel Info (PHARMACY MONITORING -- do not chart) 1 each PRN DAILY PRN MC SEE COMMENTS; Start 06/24/19 at 11:30; Status UNV Vancomycin HCl 500 mg/Sodium Chloride 100 ml @ 100 mls/hr QMWF IV Last administered on 07/06/19at 18:06; Start 06/24/19 at 16:00 Dextrose (Dextrose 50%-Water Syringe) 12.5 gm PRN Q15MIN PRN IV SEE COMMENTS Last administered on 06/25/19at 01:41; Start 06/25/19 at 01:30 Dextrose 250 ml PRN Q15MIN PRN IV SEE COMMENTS; Start 06/25/19 at 01:30 Micafungin Sodium 100 mg/Dextrose 100 ml @ 100 mls/hr Q24H IV Last administered on 07/02/19at 16:45; Start 06/25/19 at 09:00; Stop 07/03/19 at 08:21; Status DC Metoprolol Tartrate (Lopressor Vial) 2.5 mg Q6HRS IVP Last administered on 06/27/19at 17:59; Start 06/25/19 at 18:00; Stop 06/28/19 at 11:19; Status DC Atorvastatin Calcium (Lipitor) 10 mg QHS PEG Last administered on 07/06/19at 20:46; Start 06/25/19 at 21:00 Ondansetron HCl (Zofran) 4 mg PRN Q6HRS PRN IV NAUSEA/VOMITING; Start 06/26/19 at 07:00; Stop 06/27/19 at 06:59; Status DC Morphine Sulfate (Morphine Sulfate) 1 mg PRN Q10MIN PRN IV SEVERE PAIN 7-10; Start 06/26/19 at 07:00; Stop 06/27/19 at 06:59; Status DC Ringer's Solution 1,000 ml @ 30 mls/hr Q24H IV ; Start 06/26/19 at 07:00; Stop 06/26/19 at 18:59; Status DC Lidocaine HCl (Xylocaine-Mpf 1% 2ml Vial) 2 ml PRN 1X PRN ID PRIOR TO IV START; Start 06/26/19 at 07:00; Stop 06/27/19 at 06:59; Status DC Hydromorphone HCl (Dilaudid) 0.5 mg PRN Q10MIN PRN IV SEV PAIN, Second choice; Start 06/26/19 at 07:00; Stop 06/27/19 at 06:59; Status DC Acetaminophen (Tylenol) 650 mg PRN Q6HRS PRN PEG MILD PAIN / TEMP Last administered on 07/02/19at 21:00; Start 06/25/19 at 18:15 Aspirin (Children'S Aspirin) 81 mg DAILYWBKFT PEG Last administered on 07/03/19at 14:09; Start 06/26/19 at 08:00; Stop 07/03/19 at 15:55; Status DC Allopurinol (Zyloprim) 100 mg DAILY PEG Last administered on 07/07/19at 12:10; Start 06/25/19 at 18:17 Quetiapine Fumarate (SEROquel) 12.5 mg PRN Q8HRS PRN PO PSYCHOTIC BEHAVIOR Last administered on 07/05/19at 20:37; Start 06/25/19 at 19:45; Stop 07/07/19 at 07:30; Status DC Vitamin A/Vitamin D (Vitamin A & D Ointment) 1 héctor PRN BID PRN TP SKIN PROTECTION Last administered on 07/02/19at 10:00; Start 06/26/19 at 06:00 Sodium Chloride 1,000 ml @ 1,000 mls/hr Q1H PRN IV hypotension; Start 06/26/19 at 12:41; Stop 06/26/19 at 18:40; Status DC Info (PHARMACY MONITORING -- do not chart) 1 each PRN DAILY PRN MC SEE COMMENTS; Start 06/26/19 at 12:45; Status UNV Info (PHARMACY MONITORING -- do not chart) 1 each PRN DAILY PRN MC SEE COMMENTS; Start 06/26/19 at 12:45; Status Cancel Sodium Chloride 1,000 ml @ 1,000 mls/hr Q1H PRN IV hypotension; Start 06/29/19 at 12:00; Stop 06/29/19 at 17:59; Status DC Sodium Chloride 1,000 ml @ 400 mls/hr Q2H30M PRN IV PATENCY; Start 06/29/19 at 12:00; Stop 06/29/19 at 23:59; Status DC Info (PHARMACY MONITORING -- do not chart) 1 each PRN DAILY PRN MC SEE COMMENTS; Start 06/29/19 at 16:00; Status UNV Info (PHARMACY MONITORING -- do not chart) 1 each PRN DAILY PRN MC SEE ANAIS TS; Start 06/29/19 at 16:00; Status Cancel Info (PHARMACY MONITORING -- do not chart) 1 each PRN DAILY PRN MC SEE COMMENTS; Start 07/01/19 at 14:00; Status UNV Info (PHARMACY MONITORING -- do not chart) 1 each PRN DAILY PRN MC SEE COMMENTS; Start 07/01/19 at 14:00; Stop 07/03/19 at 07:29; Status DC Darbepoetin Chito (ARANESP for DIALYSIS PTS) 60 mcg WEEKLYHS SQ Last administer ed on 07/01/19at 21:48; Start 07/01/19 at 21:00 Vancomycin HCl (Vancomycin Random Level) 1 each 1X ONCE MC Last administered on 07/03/19at 06:19; Start 07/03/19 at 06:00; Stop 07/03/19 at 06:01; Status DC Lidocaine/Sodium Bicarbonate (Buffered Lidocaine 1%) 3 ml STK-MED ONCE .ROUTE ; Start 07/02/19 at 15:27; Stop 07/02/19 at 15:28; Status DC Dextrose/Sodium Chloride 1,000 ml @ 40 mls/hr Q24H IV Last administered on 07/06/19at 18:06; Start 07/02/19 at 17:00 Sodium Chloride 1,000 ml @ 1,000 mls/hr Q1H PRN IV hypotension; Start 07/03/19 at 07:18; Stop 07/03/19 at 13:17; Status DC Albumin Human 200 ml @ 200 mls/hr 1X PRN PRN IV Hypotension; Start 07/03/19 at 07:30; Stop 07/03/19 at 13:29; Status DC Acetaminophen (Tylenol) 500 mg 1X PRN PRN PO MILD PAIN / TEMP; Start 07/03/19 at 07:30; Stop 07/04/19 at 07:29; Status DC Diphenhydramine HCl (Benadryl) 25 mg 1X PRN PRN IV ITCHING; Start 07/03/19 at 07:30; Stop 07/04/19 at 07:29; Status DC Diphenhydramine HCl (Benadryl) 25 mg 1X PRN PRN IV ITCHING; Start 07/03/19 at 07:30; Stop 07/04/19 at 07:29; Status DC Sodium Chloride 1,000 ml @ 400 mls/hr Q2H30M PRN IV PATENCY; Start 07/03/19 at 07:18; Stop 07/03/19 at 19:17; Status DC Info (PHARMACY MONITORING -- do not chart) 1 each PRN DAILY PRN MC SEE COMMENTS ; Start 07/03/19 at 07:30 Info (PHARMACY MONITORING -- do not chart) 1 each PRN DAILY PRN MC SEE COMMENTS; Start 07/03/19 at 07:30; Status UNV Ondansetron HCl (Zofran) 4 mg PRN Q6HRS PRN IV NAUSEA/VOMITING; Start 07/06/19 at 07:00; Stop 07/07/19 at 06:59; Status DC Morphine Sulfate (Morphine Sulfate) 1 mg PRN Q10MIN PRN IV SEVERE PAIN 7-10; Start 07/06/19 at 07:00; Stop 07/07/19 at 06:59; Status DC Ringer's Solution 1,000 ml @ 30 mls/hr Q24H IV ; Start 07/06/19 at 07:00; Stop 07/06/19 at 18:59; Status DC Lidocaine HCl (Xylocaine-Mpf 1% 2ml Vial) 2 ml PRN 1X PRN ID PRIOR TO IV START; Start 07/06/19 at 07:00; Stop 07/07/19 at 06:59; Status DC Hydromorphone HCl (Dilaudid) 0.5 mg PRN Q10MIN PRN IV SEV PAIN, Second choice; Start 07/06/19 at 07:00; Stop 07/07/19 at 06:59; Status DC Metoprolol Succinate (Toprol Xl) 12.5 mg DAILY PO Last administered on 07/07/19at 12:10; Start 07/03/19 at 16:30 Aspirin (Ecotrin) 81 mg DAILYWBKFT PO Last administered on 07/07/19at 12:10; Start 07/04/19 at 08:00 Lactobacillus Rhamnosus (Culturelle) 1 cap BID PO Last administered on 07/07/19at 12:10; Start 07/06/19 at 21:00 Sodium Chloride 1,000 ml @ 100 mls/hr Q10H IV Last administered on 07/06/19at 12:58; Start 07/06/19 at 12:45; Stop 07/07/19 at 10:48; Status DC Propofol 20 ml @ As Directed STK-MED ONCE IV ; Start 07/06/19 at 12:36; Stop 07/06/19 at 12:36; Status DC Sodium Chloride 1,000 ml @ 1,000 mls/hr Q1H PRN IV hypotension; Start 07/06/19 at 13:28; Stop 07/06/19 at 19:27; Status DC Albumin Human 200 ml @ 200 mls/hr 1X PRN PRN IV Hypotension; Start 07/06/19 at 13:30; Stop 07/06/19 at 19:29; Status DC Sodium Chloride 1,000 ml @ 400 mls/hr Q2H30M PRN IV PATENCY; Start 07/06/19 at 13:28; Stop 07/07/19 at 01:27; Status DC Info (PHARMACY MONITORING -- do not chart) 1 each PRN DAILY PRN MC SEE COMMENTS; Start 07/06/19 at 13:30; Stop 07/06/19 at 13:41; Status DC Info (PHARMACY MONITORING -- do not chart) 1 each PRN DAILY PRN MC SEE COMMENTS; Start 07/06/19 at 13:30; Stop 07/06/19 at 13:41; Status DC Cyanocobalamin (Vitamin B-12) 1,000 mcg DAILY PEG Last administered on 07/07/19at 12:10; Start 07/07/19 at 08:00 Vitamin B Complex/ Vitamin C (Carlos-Moses) 1 tab DAILY PEG Last administered on 07/07/19at 12:10; Start 07/07/19 at 08:00 Quetiapine Fumarate (SEROquel) 12.5 mg PRN Q8HRS PRN PEG PSYCHOTIC BEHAVIOR; Start 07/07/19 at 07:30 Tramadol HCl (Ultram) 25 mg PRN Q6HRS PRN PEG PAIN MODERATE PAIN; Start 07/07/19 at 07:30 Regadenoson (Lexiscan) 0.4 mg 1X ONCE IV Last administered on 07/07/19at 10:53; Start 07/07/19 at 09:30; Stop 9/24/19 at 09:31; Status DC Active Scripts Active [place] 5-325 Tablet (Acetaminophen/Hydrocodone Bitart) 1 Each Tablet 0.5 Tab PO Q4HRS Zyvox (Linezolid) 600 Mg Tablet 600 Mg PO BID 4 Days Amox Tr-K Clv 500-125 Mg Tab (Amoxicillin/Potassium Clav) 1 Each Tablet 1 Tab PO DAILY 4 Days Tramadol Hcl 50 Mg Tablet 50 Mg PO PRN Q6HRS PRN Ondansetron Odt (Ondansetron) 4 Mg Tab.rapdis 4 Mg PO Q6HRS PRN Humalog (Insulin Lispro) 100 Unit/1 Ml Insuln.pen 0 Units SQ TIDWMEALS 30 Days BG 150-199= 1 units 200-299= 2 units 300-399= 4 units 400-499= 6 units ac tid sliding scale Reported Omeprazole 20 Mg Tablet.dr 1 Tab PO DAILY Vitamin D3 (Cholecalciferol (Vitamin D3)) 1,000 Unit Tablet 1 Tab PO DAILY Vitamin B-12 (Cyanocobalamin (Vitamin B-12)) 1,000 Mcg Tablet 1 Tab PO DAILY Senna (Sennosides) 8.6 Mg Tablet 8.6 Mg PO PRN DAILY PRN 2 tabs Renvela (Sevelamer Carbonate) 800 Mg Tablet 800 Mg PO TIDWMEALS Renal Caps Softgel (Folic Acid/Vitamin B Comp W-C) 1 Mg Capsule 1 Mg PO DAILY Reglan (Metoclopramide Hcl) 10 Mg Tablet 5 Mg PO TID Probiotic (Lactobacillus Acidophilus) 1 Each Capsule 1 Each PO BID Milk Of Magnesia (Magnesium Hydroxide) 400 Mg/5 Ml Oral.susp 400 Mg PO PRN DAILY PRN Lipitor (Atorvastatin Calcium) 40 Mg Tablet 1 Tab PO QHS Humalog (Insulin Lispro) 100 Unit/1 Ml Insuln.pen 100 Unit SQ TIDBFRMEAL 150-199=1 unit 200-299=2 units 300-399=4 units 100-499=6 units Clopidogrel (Clopidogrel Bisulfate) 75 Mg Tablet 1 Tab PO DAILY Duoneb 0.5-3(2.5) Mg/3 Ml (Albuterol/Ipratropium) 3 Ml Ampul.neb 3 Ml NEB PRN Q4HRS PRN Lac-Hydrin Five (Ammonium Lactate) 226 Gm Lotion 226 Gm TP BID Allopurinol 100 Mg Tablet 1 Tab PO DAILY Tylenol (Acetaminophen) 325 Mg Tablet 1 Tab PO PRN Q4HRS Aspirin 81 Mg Tab.chew 81 Mg PO DAILY Vitals/I & O Vital Sign - Last 24 Hours 07/06/19 07/06/19 07/06/19 07/06/19 13:15 13:30 15:00 17:55 Temp 97.3 97.3 Pulse 60 62 62 Resp 20 20 B/P (MAP) 98/59 112/61 137/61 (86) Pulse Ox 99 99 99 O2 Delivery Room Air Room Air Room Air 07/06/19 07/06/19 07/06/19 07/06/19 18:06 19:00 20:00 23:00 Temp 97.4 97.4 97.4 97.4 Pulse 62 69 60 Resp 20 20 B/P (MAP) 137/61 123/63 (83) 96/46 (63) Pulse Ox 90 97 O2 Delivery Room Air Room Air Room Air 07/07/19 07/07/19 07/07/19 07/07/19 03:00 07:00 08:00 11:00 Temp 97.7 96.5 98.1 97.7 96.5 98.1 Pulse 57 59 60 Resp 20 18 16 B/P (MAP) 94/49 (64) 112/55 (74) 104/41 (62) Pulse Ox 92 99 95 O2 Delivery Room Air Room Air Room Air Room Air 07/07/19 12:10 Pulse 59 B/P (MAP) 112/55 Intake and Output 07/06/19 07/06/19 07/07/19 15:00 23:00 07:00 Intake Total 0 ml Output Total 20 ml Balance -20 ml Nutrition Consultation Dietary Evaluation: Recommendations by RD: Increase Calorie Intake, Protein supplementation Comments: Continue w/dysphagia I diet w/honey thick liquids per SITE PROMOTION AGENT, recommend Magic cup supplements TID Continue w/carlos-moses for wound healing Will re-order TF s/p PEG placement, recommend resume Nepro@goal rate 40 ml/hr w/200 ml water flushes q4 hrs or flushes per MD REC Marcell BID via PEG tube Expected Outcomes/Goals: New goal 06/30: TF infusion + PO intake to meet >75% est needs - met at times, goal ongoing Malnutrition Findings: Food and Nutrition Intake (Sev: <50% est energy req 5days Weight Status: Appropriate DARIO FLORES APRN Jul 07, 2019 13:13
--- NOTE | 2019-07-07 13:26 | PDOC ---
Renal-Progress Notes Subjective Notes Notes NOTHING NEW History of Present Illness Hx of present illness NO CHANGES Vitals Vitals Vital Signs Date Time Temp Pulse Resp B/P (MAP) Pulse Ox O2 Delivery O2 Flow Rate FiO2 07/07/19 12:10 59 112/55 07/07/19 11:00 98.1 16 95 Room Air 98.1 Weight Weight [ ] I.O. Intake and Output Intake and Output 07/07/19 07:00 Intake Total 0 ml Output Total 20 ml Balance -20 ml Intake Oral 0 ml Output Urine Total 20 ml # Bowel Movements 1 Labs Labs Laboratory Tests Test 07/06/19 18:19 07/06/19 21:15 07/07/19 08:48 07/07/19 12:10 Glucose (Fingerstick) 79 mg/dL (70-99) 108 mg/dL (70-99) 98 mg/dL (70-99) 111 mg/dL (70-99) Micro Micro Microbiology 06/23/19 Urine Culture - Final, Complete 06/23/19 Urine Culture Result 1 (TEREZA) - Final, Complete 06/22/19 Blood Culture - Final, Complete NO GROWTH AFTER 5 DAYS Review of Systems Constitutional: yes: other Physical Exam General Appearance: no apparent distress Skin: warm Respiratory: bilateral CTA Heart: S1S2 Abdomen: soft, bowel sounds present Genitourinary: bladder flat Extremities: pulses present Neurology: alert, follow commands, other (oriented to self) Assessment Assessment IMP UTI ? INFECTED BKA STUMP ANEMIA DM II HTN ESRD MET ENCEPHALOPATHY DYSPHAGIA PLAN CONT ANTIBIOTICS WOUND CARE HD TOMORROW PEG DONE VASCULAR FOLLOWING NANCY LIU MD Jul 07, 2019 13:26
--- NOTE | 2019-07-07 13:49 | PDOC ---
Subjective: Subjective: "They got the IV running. Now what happens?" Objective: Objective: D/w nurse - tolerating feeds so far. Vital Signs: Vital Signs Date Time Temp Pulse Resp B/P (MAP) Pulse Ox O2 Delivery O2 Flow Rate FiO2 07/07/19 12:10 59 112/55 07/07/19 11:00 98.1 16 95 Room Air 98.1 Labs: Laboratory Tests Test 07/06/19 18:19 07/06/19 21:15 07/07/19 08:48 07/07/19 12:10 Glucose (Fingerstick) 79 mg/dL 108 mg/dL 98 mg/dL 111 mg/dL Imaging: EGD 07/06 E--normal G--normal D--normal bulb --20F PEG placed uneventfully. Scope briefly re-introduced, confirming good placement. IMP: successful PEG MPI 07/07 pending PE: GEN: NAD LUNGS: CTAB HEART: RRR ABD: PEG in place - abd soft, mildly tender around PEG, gauze removed from under bumper - loosened just a bit, abd binder replaced NEURO/PSYCH: was chewing on a towel when I first walked in - was able to answer questions appropriately A/P: Dysphagia/need for non-oral nutrition - s/p PEG -- PEG functioning. Continue w/ abd binder. EULOGIO SOLORIO Jul 07, 2019 13:49
[2019-07-07 15:00] VITALS: BP 115/64
--- NOTE | 2019-07-07 15:18 | RAD ---
MR#: [id number] Date of Study: 07/07/2019 Ordering Physician: MARIANN SCHAFER, Referring Physician: SHAKA ZIMMERMAN Tech: RT Stella MedinaR) (N) APPROVED REPORT Test Type: Pharmacological Stress Nurse/Tech: Cady Fraga R.N. Test Indications: cardiomyopathy, elevated troponin, abnormal ekg Cardiac History: Afib, CAD, htnm PPM , ESRD-HD, CVA Medications: See Electronic Medical Record Medical History: See Electronic Medical Record Resting ECG: vpace, ST variance due to paced beats Resting Heart Rate: 63 bpm Resting Blood Pressure: 109/55mmHg Pretest Chest Pain: No chest pain Nurse/Tech Notes S1S2, lungs CTA Consent: The procedure was explained to the patient in lay terms. Informed consent was witnessed. Bridger eout was entered into [facility]. History and Stress Test performed by RT Stella MedinaR) (N) Pharm. Details Pharmacologic stress testing was performed using 0.4mg per 5ml of regadenoson given intravenously ove r 7-10 seconds. Stress Symptoms slight SOB POST EXERCISE Reason for Termination: Infusion complete Max HR: 63 bpm Max Blood Pressure: 95/51mmHg Blood Pressure response to exercise: Normal blood pressure response during stress. Heart Rate response to exercise: did not get any faster than baseline Chest Pain: No. Arrhythmia: No. ST Change: Yes. INTERPRETATION Stress EKG Conclusion: Baseline EKG showed paced ventricular rhythm. Nondiagnostic changes at peak st ress. Imaging Protocol IMAGE PROTOCOL: Rest Tc-99m/stress Tc-99m 1 day Rest: Stress: Viability: Radiopharm.Tc99m QoexlqissOy31g Sestamibi Rlec3aVm 33mCi Duration 15min. 10min. Img Date 07/07/2019 07/07/2019 Inj-Img [id number]. 120min. Rest Admin Site:IV left jugularAdministrator:RT Stella MedinaR)(N) Stress Admin Site: IV left jugularAdministrator: FRANCY Rebollar, ARRT (R)(N) STRESS DATA End Diast. Vol.156.0mlAv. Heart Rate59.0bpm End Syst. Vol.85.0mlCO Index BSA0.0L/min Myocardial Htqi422.0gEject. Abugkxqy53.0% Stress Rates Pk. Fill Rate2.36EDV/secLVtime Pk. Fill 167.73msec Pk. Empty Rate2.28ESV/secLVtime Pk. Uvowr647.24msec 1/3 Pk. Fill1.23EDV/sec Stress Scores Regional WT1.00Summed WT10.00 Regional WM0.00Summed WM20.00 LV Perfusion Scintigraphic images showed motion artifact without any significant fixed or reversible defects. Wall Motion Abnormal septal wall motion probably from paced rhythm. Left ventricular ejection fraction was calcul ated at 46%. LV Perf. Quant 17 Seg. SSS9.00 17 Seg. SRS5.00 17 Seg. SDS7.00 Stress Defect Extent (% LAD)26.30Rest Defect Extent (% LAD)5.00Rev. Defect Extent (% LAD)21.30 Stress Defect Extent (% LCX) 43.80Rest Defect Extent (% LCX)38.80Rev. Defect Extent (% LCX)35.00 Stress Defect Extent (% RCA)7.80Rest Defect Extent (% RCA)14.40Rev. Defect Extent (% RCA)0.00 Stress Defect Extent (% KATTY)24.10Rest Defect Extent (% KATTY)12.40Rev. Defect Extent (% KATTY)18.90 Conclusion 1. Regadenoson cardioisotope stress test showed motion artifact without any definite evidence of isch emia or infarct. 2. Abnormal septal wall motion probably from paced rhythm. Left ventricular ejection fraction was nereida culated at 46%. 3. Low to intermediate risk for cardiac events. Signed by : Jasvir Boggs, Electronically Approved : 07/07/2019 15:17:54
--- NOTE | 2019-07-07 16:20 | PDOC ---
MARIANN SCHAFER ATHLETIC INSTRUCTOR 07/07/19 1620: CARDIO Progress Notes Date and Time Date of Service 07/07/2019 Time of Evaluation 1600 Subjective Subjective: No Chest Pain, No shortness of breath, No Palpitations Vitals Vitals Vital Signs Date Time Temp Pulse Resp B/P (MAP) Pulse Ox O2 Delivery O2 Flow Rate FiO2 07/07/19 15:00 97.9 65 16 115/64 (81) 99 Room Air 97.9 Weight Weight [ ] Input and Output Intake and Output Intake and Output 07/07/19 07:00 Intake Total 0 ml Output Total 20 ml Balance -20 ml Intake Oral 0 ml Output Urine Total 20 ml # Bowel Movements 1 Laboratory Labs Laboratory Tests Test 07/06/19 18:19 07/06/19 21:15 07/07/19 08:48 07/07/19 12:10 Glucose (Fingerstick) 79 mg/dL (70-99) 108 mg/dL (70-99) 98 mg/dL (70-99) 111 mg/dL (70-99) Microbiology Micro Microbiology 06/23/19 Urine Culture - Final, Complete 06/23/19 Urine Culture Result 1 (TEREZA) - Final, Complete 06/22/19 Blood Culture - Final, Complete NO GROWTH AFTER 5 DAYS Review of Systems Constitutional: yes: other Physical Exam HEENT: Neck Supple W Full Motion Chest: Symmetric LUNGS: Other (diminished bases) Heart: RRR (Atrial tach) Abdomen: Soft N/T Extremities: Other (bilateral BKA) Neurology: alert, follow commands, other (oriented to self) Assessment Assessment 1. UTI/cystitis: Urology/ID following 2. Metabolic Encephalopathy: better 3. NSTEMI: multifactorial. EF 45-50% unchanged. No CP 4. Chronic diastolic/systolic CHF: compensated 5. PAFIB: currently on atrial tach. Controlled 6. Hypertension; controlled 7. CAD; s/p PCI/stent in the past. clinically stable. CP free. MPI revealed no reversible defects. 8. Hx of PAD: with bilateral BKA: post debridement 9. H/o CVA with left side hemiparesis 10. ESRD on HD 11. SSS s/p PPM ([employer]) VVIR, occasional brief NSVT 16% V paced 12. DM2/HLP: BG and lipids on goal. 13. Hx of psoas hematoma r/t to past coumadin Recommendations 1. ASA, Continue with secondary prevention 2. Fluid offloading/management via HD as per nephrology. 3. Not a candidate for previous coumadin due to past bleed with psoas hematoma. Continue ASA for stroke prevention 4. Follow up in office. 5. May DC to [facility] per cardiac standpoint. JOANNE CUMMINS MD 07/07/192046: CARDIO Progress Notes Assessment Assessment Patient seen and examined. Agree with MANAGER OF CHANGE's assessment and plan. MPI did not show any significant ischemia CAD status clinically stable Continue HD per nephrology team MARIANN SCHAFER APRN Jul 07, 2019 16:20 JOANNE CUMMINS MD Jul 07, 2019 20:47
[2019-07-07 19:00] VITALS: BP 134/69
[2019-07-07] MEDS: ATORVASTATIN CALCIUM 10 MG TABLET. PEG SCH (21:42)
[2019-07-07 23:00] VITALS: BP 133/67
[2019-07-08 03:00] VITALS: BP 116/71
[2019-07-08] MEDS: ACETAMINOPHEN 650 MG/20.3 ML SOLUTION. PEG PRN ×2 (04:08→22:01)
[2019-07-08] MEDS: PIPERACILLIN/TAZOBACTAM 2.25 GM in IV NORMAL SALINE 50ML 50 ML IV SCH (04:08)
[2019-07-08 07:00] VITALS: BP 111/55
[2019-07-08 07:02] LABS: CALCIUM 8.9 mg/dL (8.5-10.1); CREATININE 5.1 mg/dL (0.7-1.3); GFR 13.3; POTASSIUM 3.6 mmol/L (3.5-5.1)
[2019-07-08 07:12] LABS: BASO # 0.1 x10^3/uL (0.0-0.2); BASO % 1 % (0-3); EOS # 0.4 x10^3/uL (0.0-0.7); EOS % 4 % (0-3); HEMATOCRIT 28.6 % (39.0-53.0); HEMOGLOBIN 9.3 g/dL (13.0-17.5); LYMPH # 1.7 x10^3/uL (1.0-4.8); LYMPH % 16 % (24-48); MEAN CORPUSCULAR HEMOGLOBIN 28 pg (25-35); MEAN CORPUSCULAR HGB CONC 32 g/dL (31-37); MEAN CORPUSCULAR VOLUME 86 fL (79-100); MONO # 0.7 x10^3/uL (0.0-1.1); MONO % 7 % (0-9); NEUT # 7.5 x10^3/uL (1.8-7.7); NEUT % 73 % (31-73); PLATELET COUNT 363 x10^3/uL (140-400); RED BLOOD COUNT 3.32 x10^6/uL (4.30-5.70); WHITE BLOOD COUNT 10.4 x10^3/uL (4.0-11.0)
[2019-07-08] MEDS: INSULIN LISPRO 300 UNITS/3 ML VIAL. SQ SCH ×3 (08:00→17:00)
--- NOTE | 2019-07-08 08:26 | PDOC ---
PROGRESS NOTES Subjective Subjective sleepy this morning. MPI stress test without ischemia. vascular surgery to look at wound today to see if further debridement is necessary . lab reviewed. tolerates tube feeding. discussed with dr. stephanie gage Objective Objective Vital Signs Date Time Temp Pulse Resp B/P (MAP) Pulse Ox O2 Delivery O2 Flow Rate FiO2 07/08/19 03:00 98.3 63 20 116/71 (86) 98 Room Air 98.3 Intake and Output 07/08/19 07:00 Intake Total 470 ml Output Total 50 ml Balance 420 ml Intake Oral 50 ml Tube Feeding 420 ml Output Urine Total 50 ml Physical Exam Abdomen: Soft Heart: Normal S1, Normal S2 Extremities: Other (bilateral BKA with left BKa STUMP WOUND VAC) General: Other (sleepy) HEENT: Atraumatic Lungs: Clear to auscultation Neuro: Other (sleepy) Psych/Mental Status: Other (sleepy) Skin: No rashes Assessment Assessment Problems metabolic encephalopathy. better 2. 3. Bilateral below-knee amputation. 4. left below-knee amputation stump wound infection 5. Diabetes mellitus type 2. 6. Peripheral arterial disease. 7. End-stage renal disease, on hemodialysis. m-w-f 8. paroxysmal atrial fibrillation. in nsr. not a coumadin candidate. recent hx of retroperitoneal bleed on anticoagulants and fall risk. 9. Severe protein-calorie malnutrition. 10. Anemia of chronic disease. NSTEMI oropharyngeal dysphagia on HTL pureed diet. PEG placed Medical Problems: Medical Problems: (1) Altered mental status Status: Acute (2) Anemia in chronic illness Status: Chronic (3) CAD (coronary artery disease) Status: Chronic (4) Chronic a-fib Status: Chronic (5) DM2 (diabetes mellitus, type 2) Status: Chronic (6) ESRD (end stage renal disease) Status: Acute (7) HTN (hypertension) Status: Chronic (8) Metabolic encephalopathy Status: Acute (9) NSTEMI (non-ST elevated myocardial infarction) Status: Acute (10) Paroxysmal A-fib Status: Acute (11) Peripheral artery disease Status: Chronic (12) Severe protein-calorie malnutrition Status: Chronic (13) SSS (sick sinus syndrome) Status: Chronic (14) UTI (urinary tract infection) Status: Acute Plan Plan of Care hemodialysis continue antibiotics vascular surgery to evaluate for need for more wound debridement continue wound vac continue tube feeding Comment Review of Relevant I have reviewed the following items soumya (where applicable) has been applied. Labs Laboratory Tests Test 07/06/19 08:45 07/06/19 18:19 07/06/19 21:15 07/07/19 08:48 Glucose (Fingerstick) 102 mg/dL (70-99) 79 mg/dL (70-99) 108 mg/dL (70-99) 98 mg/dL (70-99) Test 07/07/19 12:10 07/07/19 17:34 07/07/19 20:45 07/08/19 03:00 Glucose (Fingerstick) 111 mg/dL (70-99) 138 mg/dL (70-99) 127 mg/dL (70-99) White Blood Count 10.4 x10^3/uL (4.0-11.0) Red Blood Count 3.32 x10^6/uL (4.30-5.70) Hemoglobin 9.3 g/dL (13.0-17.5) Hematocrit 28.6 % (39.0-53.0) Mean Corpuscular Volume 86 fL (79-100) Mean Corpuscular Hemoglobin 28 pg (25-35) Mean Corpuscular Hemoglobin Concent 32 g/dL (31-37) Red Cell Distribution Width 19.0 % (11.5-14.5) Platelet Count 363 x10^3/uL (140-400) Neutrophils (%) (Auto) 73 % (31-73) Lymphocytes (%) (Auto) 16 % (24-48) Monocytes (%) (Auto) 7 % (0-9) Eosinophils (%) (Auto) 4 % (0-3) Basophils (%) (Auto) 1 % (0-3) Neutrophils # (Auto) 7.5 x10^3/uL (1.8-7.7) Lymphocytes # (Auto) 1.7 x10^3/uL (1.0-4.8) Monocytes # (Auto) 0.7 x10^3/uL (0.0-1.1) Eosinophils # (Auto) 0.4 x10^3/uL (0.0-0.7) Basophils # (Auto) 0.1 x10^3/uL (0.0-0.2) Sodium Level 136 mmol/L (136-145) Potassium Level 3.6 mmol/L (3.5-5.1) Chloride Level 97 mmol/L (98-107) Carbon Dioxide Level 27 mmol/L (21-32) Anion Gap 12 (6-14) Blood Urea Nitrogen 27 mg/dL (8-26) Creatinine 5.1 mg/dL (0.7-1.3) Estimated GFR (Cockcroft-Gault) 13.3 Glucose Level 207 mg/dL (70-99) Calcium Level 8.9 mg/dL (8.5-10.1) Test 07/08/19 07:57 Glucose (Fingerstick) 182 mg/dL (70-99) Laboratory Tests Test 07/07/19 08:48 07/07/19 12:10 07/07/19 17:34 07/07/19 20:45 Glucose (Fingerstick) 98 mg/dL (70-99) 111 mg/dL (70-99) 138 mg/dL (70-99) 127 mg/dL (70-99) Test 07/08/19 03:00 07/08/19 07:57 White Blood Count 10.4 x10^3/uL (4.0-11.0) Red Blood Count 3.32 x10^6/uL (4.30-5.70) Hemoglobin 9.3 g/dL (13.0-17.5) Hematocrit 28.6 % (39.0-53.0) Mean Corpuscular Volume 86 fL (79-100) Mean Corpuscular Hemoglobin 28 pg (25-35) Mean Corpuscular Hemoglobin Concent 32 g/dL (31-37) Red Cell Distribution Width 19.0 % (11.5-14.5) Platelet Count 363 x10^3/uL (140-400) Neutrophils (%) (Auto) 73 % (31-73) Lymphocytes (%) (Auto) 16 % (24-48) Monocytes (%) (Auto) 7 % (0-9) Eosinophils (%) (Auto) 4 % (0-3) Basophils (%) (Auto) 1 % (0-3) Neutrophils # (Auto) 7.5 x10^3/uL (1.8-7.7) Lymphocytes # (Auto) 1.7 x10^3/uL (1.0-4.8) Monocytes # (Auto) 0.7 x10^3/uL (0.0-1.1) Eosinophils # (Auto) 0.4 x10^3/uL (0.0-0.7) Basophils # (Auto) 0.1 x10^3/uL (0.0-0.2) Sodium Level 136 mmol/L (136-145) Potassium Level 3.6 mmol/L (3.5-5.1) Chloride Level 97 mmol/L (98-107) Carbon Dioxide Level 27 mmol/L (21-32) Anion Gap 12 (6-14) Blood Urea Nitrogen 27 mg/dL (8-26) Creatinine 5.1 mg/dL (0.7-1.3) Estimated GFR (Cockcroft-Gault) 13.3 Glucose Level 207 mg/dL (70-99) Calcium Level 8.9 mg/dL (8.5-10.1) Glucose (Fingerstick) 182 mg/dL (70-99) Microbiology 06/23/19 Urine Culture - Final, Complete 06/23/19 Urine Culture Result 1 (TEREZA) - Final, Complete 06/22/19 Blood Culture - Final, Complete NO GROWTH AFTER 5 DAYS Medications Current Medications Vancomycin HCl 250 ml @ 250 mls/hr 1X ONCE IV ; Start 06/22/19 at 10:45; Stop 06/22/19 at 11:44; Status UNV Piperacillin Sod/ Tazobactam Sod 2.25 gm/Sodium Chloride 50 ml @ 100 mls/hr 1X ONCE IV Last administered on 06/22/19at 11:55; Start 06/22/19 at 10:45; Stop 06/22/19 at 11:14; Status DC Sodium Chloride 1,000 ml @ 100 mls/hr Q10H IV Last administered on 06/22/19at 11:55; Start 06/22/19 at 10:38; Stop 06/22/19 at 20:37; Status DC Vancomycin HCl 2 gm/Sodium Chloride 500 ml @ 250 mls/hr 1X ONCE IV Last administered on 06/22/19at 12:32; Start 06/22/19 at 11:30; Stop 06/22/19 at 13:29; Status DC Info (PHARMACY MONITORING -- do not chart) 1 each PRN DAILY PRN MC SEE COMMENTS; Start 06/22/19 at 16:30; Stop 06/24/19 at 11:38; Status DC Info (PHARMACY MONITORING -- do not chart) 1 each PRN DAILY PRN MC SEE COMMENTS; Start 06/22/19 at 16:30; Status UNV Sodium Chloride 1,000 ml @ 40 mls/hr Q24H IV Last administered on 06/24/19at 18:31; Start 06/22/19 at 17:30; Stop 06/25/19 at 19:44; Status DC Vancomycin HCl (Vanco Per Pharmacy) 1 each PRN DAILY PRN MC SEE COMMENTS Last administered on 07/07/19at 10:58; Start 06/22/19 at 17:30 Piperacillin Sod/ Tazobactam Sod (Zosyn Per Pharmacy) 1 each PRN DAILY PRN MC SEE COMMENTS; Start 06/22/19 at 17:30 Acetaminophen (Tylenol) 650 mg PRN Q6HRS PRN PO MILD PAIN / TEMP; Start 06/22/19 at 17:30; Stop 06/25/19 at 18:15; Status DC Ondansetron HCl (Zofran) 4 mg PRN Q6HRS PRN IV NAUSEA/VOMITING; Start 06/22/19 at 17:30 Clopidogrel Bisulfate (Plavix) 75 mg DAILYWBKFT PO Last administered on 07/02/19at 10:00; Start 06/23/19 at 08:00; Stop 07/02/19 at 14:26; Status DC Vitamin B Complex/ Vitamin C (Carlos-Moses) 1 tab DAILY PO Last administered on 07/06/19at 18:06; Start 06/23/19 at 09:00; Stop 07/07/19 at 07:30; Status DC Allopurinol (Zyloprim) 100 mg DAILY PO ; Start 06/23/19 at 09:00; Stop 06/25/19 at 18:17; Status DC Atorvastatin Calcium (Lipitor) 40 mg QHS PO Last administered on 06/22/19at 21:37; Start 06/22/19 at 21:00; Stop 06/25/19 at 12:19; Status DC Pantoprazole Sodium (Protonix) 40 mg DAILYAC PO Last administered on 07/07/19at 12:10; Start 06/23/19 at 07:30 Cyanocobalamin (Vitamin B-12) 1,000 mcg DAILY PO Last administered on 07/06/19at 18:06; Start 06/23/19 at 09:00; Stop 07/07/19 at 07:30; Status DC Piperacillin Sod/ Tazobactam Sod 2.25 gm/Sodium Chloride 50 ml @ 100 mls/hr Q8HRS IV Last administered on 07/08/19at 04:08; Start 06/22/19 at 21:00 Heparin Sodium (Porcine) (Heparin Sodium) 5,000 unit BID SQ Last administered on 06/22/19at 21:37; Start 06/22/19 at 21:00; Stop 06/23/19 at 08:23; Status DC Insulin Human Lispro (HumaLOG) 0-6 UNITS BG 400-49... TIDWMEALS SQ Last adminis tered on 07/05/19at 12:23; Start 06/23/19 at 08:00 Vancomycin HCl (Vancomycin Random Level) 1 each 1X ONCE MC Last administered on 06/24/19at 06:37; Start 06/24/19 at 06:00; Stop 06/24/19 at 06:01; Status DC Heparin Sodium/ Dextrose 500 ml @ 19.3 mls/hr CONT PRN IV SEE I/O RECORD; Start 06/23/19 at 08:30; Stop 06/23/19 at 14:53; Status DC Heparin Sodium (Porcine) (Heparin Sodium) 2,000 unit PRN Q6HRS PRN IV FOR UFH LEVEL LESS THAN 0.2; Start 06/23/19 at 08:30; Stop 06/23/19 at 14:53; Status DC Aspirin (Ecotrin) 325 mg 1X ONCE PO ; Start 06/23/19 at 10:30; Stop 06/23/19 at 10:31; Status DC Aspirin (Ecotrin) 81 mg DAILYWBKFT PO ; Start 06/24/19 at 08:00; Stop 06/25/19 at 18:16; Status DC Ondansetron HCl (Zofran) 4 mg PRN Q6HRS PRN IV NAUSEA/VOMITING; Start 06/24/19 at 07:00; Stop 06/25/19 at 06:59; Status DC Morphine Sulfate (Morphine Sulfate) 1 mg PRN Q10MIN PRN IV SEVERE PAIN 7-10; Start 06/24/19 at 07:00; Stop 06/24/19 at 10:06; Status DC Ringer's Solution 1,000 ml @ 30 mls/hr Q24H IV ; Start 06/24/19 at 07:00; Stop 06/24/19 at 18:59; Status DC Lidocaine HCl (Xylocaine-Mpf 1% 2ml Vial) 2 ml PRN 1X PRN ID PRIOR TO IV START; Start 06/24/19 at 07:00; Stop 06/25/19 at 06:59; Status DC Hydromorphone HCl (Dilaudid) 0.5 mg PRN Q10MIN PRN IV SEV PAIN, Second choice; Start 06/24/19 at 07:00; Stop 06/24/19 at 10:06; Status DC Info (Anti-Coagulation Monitoring By Pharmacy) 1 each PRN DAILY PRN MC SEE COMMENTS Last administered on 06/30/19at 10:17; Start 06/23/19 at 14:30; Stop 06/30/19 at 10:22; Status DC Enoxaparin Sodium (Lovenox Per Pharmacy Treatment Dosing) 1 each 1X PRN MC SEE COMMENTS; Start 06/23/19 at 14:45; Stop 06/23/19 at 21:00; Status DC Enoxaparin Sodium (Lovenox 80mg Syringe) 80 mg 1X ONCE SQ Last administered on 06/23/19at 15:16; Start 06/23/19 at 15:30; Stop 06/23/19 at 15:31; Status DC Heparin Sodium (Porcine) (Heparin Sodium) 5,000 unit Q12HR SQ Last administered on 07/07/19at 21:51; Start 06/24/19 at 11:00 Acetaminophen (Tylenol Supp) 650 mg PRN Q6HRS PRN PA MILD PAIN / TEMP Last administered on 06/24/19at 23:03; Start 06/24/19 at 10:30; Stop 06/28/19 at 11:19; Status DC Tramadol HCl (Ultram) 25 mg PRN Q6HRS PRN PO PAIN MODERATE PAIN Last administered on 07/02/19at 12:40; Start 06/24/19 at 10:30; Stop 07/07/19 at 07:30; Status DC Ketorolac Tromethamine (Toradol 15mg Vial) 15 mg PRN Q6HRS PRN IV PAIN Last administered on 06/28/19at 17:19; Start 06/24/19 at 10:30; Stop 06/29/19 at 10:29; Status DC Sodium Chloride 1,000 ml @ 1,000 mls/hr Q1H PRN IV hypotension; Start 06/24/19 at 11:27; Stop 06/24/19 at 17:26; Status DC Sodium Chloride 1,000 ml @ 400 mls/hr Q2H30M PRN IV PATENCY; Start 06/24/19 at 11:27; Stop 06/24/19 at 23:26; Status DC Info (PHARMACY MONITORING -- do not chart) 1 each PRN DAILY PRN MC SEE COMMENTS; Start 06/24/19 at 11:30; Status Cancel Info (PHARMACY MONITORING -- do not chart) 1 each PRN DAILY PRN MC SEE COMMENTS; Start 06/24/19 at 11:30; Status UNV Vancomycin HCl 500 mg/Sodium Chloride 100 ml @ 100 mls/hr QMWF IV Last administered on 07/06/19at 18:06; Start 06/24/19 at 16:00 Dextrose (Dextrose 50%-Water Syringe) 12.5 gm PRN Q15MIN PRN IV SEE COMMENTS Last administered on 06/25/19at 01:41; Start 06/25/19 at 01:30 Dextrose 250 ml PRN Q15MIN PRN IV SEE COMMENTS; Start 06/25/19 at 01:30 Micafungin Sodium 100 mg/Dextrose 100 ml @ 100 mls/hr Q24H IV Last administered on 07/02/19at 16:45; Start 06/25/19 at 09:00; Stop 07/03/19 at 08:21 ; Status DC Metoprolol Tartrate (Lopressor Vial) 2.5 mg Q6HRS IVP Last administered on 06/27/19at 17:59; Start 06/25/19 at 18:00; Stop 06/28/19 at 11:19; Status DC Atorvastatin Calcium (Lipitor) 10 mg QHS PEG Last administered on 07/07/19at 21:51; Start 06/25/19 at 21:00 Ondansetron HCl (Zofran) 4 mg PRN Q6HRS PRN IV NAUSEA/VOMITING; Start 06/26/19 at 07:00; Stop 06/27/19 at 06:59; Status DC Morphine Sulfate (Morphine Sulfate) 1 mg PRN Q10MIN PRN IV SEVERE PAIN 7-10; Start 06/26/19 at 07:00; Stop 06/27/19 at 06:59; Status DC Ringer's Solution 1,000 ml @ 30 mls/hr Q24H IV ; Start 06/26/19 at 07:00; Stop 06/26/19 at 18:59; Status DC Lidocaine HCl (Xylocaine-Mpf 1% 2ml Vial) 2 ml PRN 1X PRN ID PRIOR TO IV START; Start 06/26/19 at 07:00; Stop 06/27/19 at 06:59; Status DC Hydromorphone HCl (Dilaudid) 0.5 mg PRN Q10MIN PRN IV SEV PAIN, Second choice; Start 06/26/19 at 07:00; Stop 06/27/19 at 06:59; Status DC Acetaminophen (Tylenol) 650 mg PRN Q6HRS PRN PEG MILD PAIN / TEMP Last administered on 07/08/19at 04:08; Start 06/25/19 at 18:15 Aspirin (Children'S Aspirin) 81 mg DAILYWBKFT PEG Last administered on 07/03/19at 14:09; Start 06/26/19 at 08:00; Stop 07/03/19 at 15:55; Status DC Allopurinol (Zyloprim) 100 mg DAILY PEG Last administered on 07/07/19at 12:10; Start 06/25/19 at 18:17 Quetiapine Fumarate (SEROquel) 12.5 mg PRN Q8HRS PRN PO PSYCHOTIC BEHAVIOR Last administered on 07/05/19at 20:37; Start 06/25/19 at 19:45; Stop 07/07/19 at 07:30; Status DC Vitamin A/Vitamin D (Vitamin A & D Ointment) 1 héctor PRN BID PRN TP SKIN PROTECTION Last administered on 07/02/19at 10:00; Start 06/26/19 at 06:00 Sodium Chloride 1,000 ml @ 1,000 mls/hr Q1H PRN IV hypotension; Start 06/26/19 at 12:41; Stop 06/26/19 at 18:40; Status DC Info (PHARMACY MONITORING -- do not chart) 1 each PRN DAILY PRN MC SEE COMMENTS; Start 06/26/19 at 12:45; Status UNV Info (PHARMACY MONITORING -- do not chart) 1 each PRN DAILY PRN MC SEE COMMENTS; Start 06/26/19 at 12:45; Status Cancel Sodium Chloride 1,000 ml @ 1,000 mls/hr Q1H PRN IV hypotension; Start 06/29/19 at 12:00; Stop 06/29/19 at 17:59; Status DC Sodium Chloride 1,000 ml @ 400 mls/hr Q2H30M PRN IV PATENCY; Start 06/29/19 at 12:00; Stop 06/29/19 at 23:59; Status DC Info (PHARMACY MONITORING -- do not chart) 1 each PRN DAILY PRN MC SEE COMMENTS; Start 06/29/19 at 16:00; Status UNV Info (PHARMACY MONITORING -- do not chart) 1 each PRN DAILY PRN MC SEE COMMENTS; Start 06/29/19 at 16:00; Status Cancel Info (PHARMACY MONITORING -- do not chart) 1 each PRN DAILY PRN MC SEE ANAIS TS; Start 07/01/19 at 14:00; Status UNV Info (PHARMACY MONITORING -- do not chart) 1 each PRN DAILY PRN MC SEE COMMENTS; Start 07/01/19 at 14:00; Stop 07/03/19 at 07:29; Status DC Darbepoetin Chito (ARANESP for DIALYSIS PTS) 60 mcg WEEKLYHS SQ Last admi nistered on 07/01/19at 21:48; Start 07/01/19 at 21:00 Vancomycin HCl (Vancomycin Random Level) 1 each 1X ONCE MC Last administered on 07/03/19at 06:19; Start 07/03/19 at 06:00; Stop 07/03/19 at 06:01; Status DC Lidocaine/Sodium Bicarbonate (Buffered Lidocaine 1%) 3 ml STK-MED ONCE .ROUTE ; Start 07/02/19 at 15:27; Stop 07/02/19 at 15:28; Status DC Dextrose/Sodium Chloride 1,000 ml @ 40 mls/hr Q24H IV Last administered on 07/06/19at 18:06; Start 07/02/19 at 17:00; Stop 07/07/19 at 14:16; Status DC Sodium Chloride 1,000 ml @ 1,000 mls/hr Q1H PRN IV hypotension; Start 07/03/19 at 07:18; Stop 07/03/19 at 13:17; Status DC Albumin Human 200 ml @ 200 mls/hr 1X PRN PRN IV Hypotension; Start 07/03/19 at 07:30; Stop 07/03/19 at 13:29; Status DC Acetaminophen (Tylenol) 500 mg 1X PRN PRN PO MILD PAIN / TEMP; Start 07/03/19 at 07:30; Stop 07/04/19 at 07:29; Status DC Diphenhydramine HCl (Benadryl) 25 mg 1X PRN PRN IV ITCHING; Start 07/03/19 at 07:30; Stop 07/04/19 at 07:29; Status DC Diphenhydramine HCl (Benadryl) 25 mg 1X PRN PRN IV ITCHING; Start 07/03/19 at 07:30; Stop 07/04/19 at 07:29; Status DC Sodium Chloride 1,000 ml @ 400 mls/hr Q2H30M PRN IV PATENCY; Start 07/03/19 at 07:18; Stop 07/03/19 at 19:17; Status DC Info (PHARMACY MONITORING -- do not chart) 1 each PRN DAILY PRN MC SEE COMMENTS; Start 07/03/19 at 07:30 Info (PHARMACY MONITORING -- do not chart) 1 each PRN DAILY PRN MC SEE COMMENTS; Start 07/03/19 at 07:30; Status UNV Ondansetron HCl (Zofran) 4 mg PRN Q6HRS PRN IV NAUSEA/VOMITING; Start 07/06/19 at 07:00; Stop 07/07/19 at 06:59; Status DC Morphine Sulfate (Morphine Sulfate) 1 mg PRN Q10MIN PRN IV SEVERE PAIN 7-10; Start 07/06/19 at 07:00; Stop 07/07/19 at 06:59; Status DC Ringer's Solution 1,000 ml @ 30 mls/hr Q24H IV ; Start 07/06/19 at 07:00; Stop 07/06/19 at 18:59; Status DC Lidocaine HCl (Xylocaine-Mpf 1% 2ml Vial) 2 ml PRN 1X PRN ID PRIOR TO IV START; Start 07/06/19 at 07:00; Stop 07/07/19 at 06:59; Status DC Hydromorphone HCl (Dilaudid) 0.5 mg PRN Q10MIN PRN IV SEV PAIN, Second choice; Start 07/06/19 at 07:00; Stop 07/07/19 at 06:59; Status DC Metoprolol Succinate (Toprol Xl) 12.5 mg DAILY PO Last administered on 07/07/19at 12:10; Start 07/03/19 at 16:30 Aspirin (Ecotrin) 81 mg DAILYWBKFT PO Last administered on 07/07/19at 12:10; Start 07/04/19 at 08:00 Lactobacillus Rhamnosus (Culturelle) 1 cap BID PO Last administered on 07/07/19at 21:51; Start 07/06/19 at 21:00 Sodium Chloride 1,000 ml @ 100 mls/hr Q10H IV Last administered on 07/06/19at 12:58; Start 07/06/19 at 12:45; Stop 07/07/19 at 10:48; Status DC Propofol 20 ml @ As Directed STK-MED ONCE IV ; Start 07/06/19 at 12:36; Stop 07/06/19 at 12:36; Status DC Sodium Chloride 1,000 ml @ 1,000 mls/hr Q1H PRN IV hypotension; Start 07/06/19 at 13:28; Stop 07/06/19 at 19:27; Status DC Albumin Human 200 ml @ 200 mls/hr 1X PRN PRN IV Hypotension; Start 07/06/19 at 13:30; Stop 07/06/19 at 19:29; Status DC Sodium Chloride 1,000 ml @ 400 mls/hr Q2H30M PRN IV PATENCY; Start 07/06/19 at 13:28; Stop 07/07/19 at 01:27; Status DC Info (PHARMACY MONITORING -- do not chart) 1 each PRN DAILY PRN MC SEE COMMENTS; Start 07/06/19 at 13:30; Stop 07/06/19 at 13:41; Status DC Info (PHARMACY MONITORING -- do not chart) 1 each PRN DAILY PRN MC SEE COMMENTS; Start 07/06/19 at 13:30; Stop 07/06/19 at 13:41; Status DC Cyanocobalamin (Vitamin B-12) 1,000 mcg DAILY PEG Last administered on 07/07/19at 12:10; Start 07/07/19 at 08:00 Vitamin B Complex/ Vitamin C (Carlos-Moses) 1 tab DAILY PEG Last administered on 07/07/19at 12:10; Start 07/07/19 at 08:00 Quetiapine Fumarate (SEROquel) 12.5 mg PRN Q8HRS PRN PEG PSYCHOTIC BEHAVIOR; Start 07/07/19 at 07:30 Tramadol HCl (Ultram) 25 mg PRN Q6HRS PRN PEG PAIN MODERATE PAIN; Start 07/07/19 at 07:30 Regadenoson (Lexiscan) 0.4 mg 1X ONCE IV Last administered on 07/07/19at 10:53; Start 07/07/19 at 09:30; Stop 07/07/19 at 09:31; Status DC Active Scripts Active [place] 5-325 Tablet (Acetaminophen/Hydrocodone Bitart) 1 Each Tablet 0.5 Tab PO Q4HRS Zyvox (Linezolid) 600 Mg Tablet 600 Mg PO BID 4 Days Amox Tr-K Clv 500-125 Mg Tab (Amoxicillin/Potassium Clav) 1 Each Tablet 1 Tab PO DAILY 4 Days Tramadol Hcl 50 Mg Tablet 50 Mg PO PRN Q6HRS PRN Ondansetron Odt (Ondansetron) 4 Mg Tab.rapdis 4 Mg PO Q6HRS PRN Humalog (Insulin Lispro) 100 Unit/1 Ml Insuln.pen 0 Units SQ TIDWMEALS 30 Days BG 150-199= 1 units 200-299= 2 units 300-399= 4 units 400-499= 6 units ac tid sliding scale Reported Omeprazole 20 Mg Tablet.dr 1 Tab PO DAILY Vitamin D3 (Cholecalciferol (Vitamin D3)) 1,000 Unit Tablet 1 Tab PO DAILY Vitamin B-12 (Cyanocobalamin (Vitamin B-12)) 1,000 Mcg Tablet 1 Tab PO DAILY Senna (Sennosides) 8.6 Mg Tablet 8.6 Mg PO PRN DAILY PRN 2 tabs Renvela (Sevelamer Carbonate) 800 Mg Tablet 800 Mg PO TIDWMEALS Renal Caps Softgel (Folic Acid/Vitamin B Comp W-C) 1 Mg Capsule 1 Mg PO DAILY Reglan (Metoclopramide Hcl) 10 Mg Tablet 5 Mg PO TID Probiotic (Lactobacillus Acidophilus) 1 Each Capsule 1 Each PO BID Milk Of Magnesia (Magnesium Hydroxide) 400 Mg/5 Ml Oral.susp 400 Mg PO PRN DAILY PRN Lipitor (Atorvastatin Calcium) 40 Mg Tablet 1 Tab PO QHS Humalog (Insulin Lispro) 100 Unit/1 Ml Insuln.pen 100 Unit SQ TIDBFRMEAL 150-199=1 unit 200-299=2 units 300-399=4 units 100-499=6 units Clopidogrel (Clopidogrel Bisulfate) 75 Mg Tablet 1 Tab PO DAILY Duoneb 0.5-3(2.5) Mg/3 Ml (Albuterol/Ipratropium) 3 Ml Ampul.neb 3 Ml NEB PRN Q4HRS PRN Lac-Hydrin Five (Ammonium Lactate) 226 Gm Lotion 226 Gm TP BID Allopurinol 100 Mg Tablet 1 Tab PO DAILY Tylenol (Acetaminophen) 325 Mg Tablet 1 Tab PO PRN Q4HRS Aspirin 81 Mg Tab.chew 81 Mg PO DAILY Vitals/I & O Vital Sign - Last 24 Hours 07/07/19 07/07/19 07/07/19 07/07/19 11:00 12:10 15:00 19:00 Temp 98.1 97.9 98.0 98.1 97.9 98.0 Pulse 60 59 65 64 Resp 16 16 18 B/P (MAP) 104/41 (62) 112/55 115/64 (81) 134/69 (90) Pulse Ox 95 99 100 O2 Delivery Room Air Room Air Room Air 07/07/19 07/07/19 07/08/19 20:00 23:00 03:00 Temp 98.0 98.3 98.0 98.3 Pulse 57 63 Resp 22 20 B/P (MAP) 133/67 (89) 116/71 (86) Pulse Ox 99 98 O2 Delivery Room Air Room Air Room Air Intake and Output 07/07/19 07/07/19 07/08/19 15:00 23:00 07:00 Intake Total 100 ml 350 ml 20 ml Output Total 50 ml Balance 100 ml 350 ml -30 ml Nutrition Consultation Dietary Evaluation: Recommendations by RD: Increase Calorie Intake, Protein supplementation Comments: Continue w/dysphagia I diet w/honey thick liquids per METHODS EXAMINER, recommend Ensure pudding supplements BID Continue w/carlos-moses for wound healing Continue w/Nepro, increasing 10 ml q8 hrs to goal rate 40 ml/hr w/200 ml water flushes q4 hrs, discussed w/RN REC Marcell BID via PEG tube, discussed w/RN Expected Outcomes/Goals: New goal 06/30: TF infusion + PO intake to meet >75% est needs - met, goal ongoing Malnutrition Findings: Food and Nutrition Intake (Sev: <50% est energy req 5days Weight Status: Appropriate SAM OLMOS MD Jul 08, 2019 08:26
--- NOTE | 2019-07-08 08:34 | PDOC ---
Infectious Disease Note Subjective Subjective Uneventful night No fevers last 24 hours ROS ROS no n/v/d/ Vital Sign Vital Signs Vital Signs Date Time Temp Pulse Resp B/P (MAP) Pulse Ox O2 Delivery O2 Flow Rate FiO2 07/08/19 07:00 97.3 59 18 111/55 (73) 94 Room Air 97.3 Physical Exam PHYSICAL EXAM GENERAL: Resting quietly LUNGS: Clear bilaterally. HEART: S1, S2. regular ABDOMEN: Soft : Finley EXTREMITIES: Right below knee amputation. Left lower extremity amputation stump has a wound vac in place. 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 RIJ (07/02) clean Labs Lab Laboratory Tests Test 07/07/19 08:48 07/07/19 12:10 07/07/19 17:34 07/07/19 20:45 Glucose (Fingerstick) 98 mg/dL (70-99) 111 mg/dL (70-99) 138 mg/dL (70-99) 127 mg/dL (70-99) Test 07/08/19 03:00 07/08/19 07:57 White Blood Count 10.4 x10^3/uL (4.0-11.0) Red Blood Count 3.32 x10^6/uL (4.30-5.70) Hemoglobin 9.3 g/dL (13.0-17.5) Hematocrit 28.6 % (39.0-53.0) Mean Corpuscular Volume 86 fL (79-100) Mean Corpuscular Hemoglobin 28 pg (25-35) Mean Corpuscular Hemoglobin Concent 32 g/dL (31-37) Red Cell Distribution Width 19.0 % (11.5-14.5) Platelet Count 363 x10^3/uL (140-400) Neutrophils (%) (Auto) 73 % (31-73) Lymphocytes (%) (Auto) 16 % (24-48) Monocytes (%) (Auto) 7 % (0-9) Eosinophils (%) (Auto) 4 % (0-3) Basophils (%) (Auto) 1 % (0-3) Neutrophils # (Auto) 7.5 x10^3/uL (1.8-7.7) Lymphocytes # (Auto) 1.7 x10^3/uL (1.0-4.8) Monocytes # (Auto) 0.7 x10^3/uL (0.0-1.1) Eosinophils # (Auto) 0.4 x10^3/uL (0.0-0.7) Basophils # (Auto) 0.1 x10^3/uL (0.0-0.2) Sodium Level 136 mmol/L (136-145) Potassium Level 3.6 mmol/L (3.5-5.1) Chloride Level 97 mmol/L (98-107) Carbon Dioxide Level 27 mmol/L (21-32) Anion Gap 12 (6-14) Blood Urea Nitrogen 27 mg/dL (8-26) Creatinine 5.1 mg/dL (0.7-1.3) Estimated GFR (Cockcroft-Gault) 13.3 Glucose Level 207 mg/dL (70-99) Calcium Level 8.9 mg/dL (8.5-10.1) Glucose (Fingerstick) 182 mg/dL (70-99) Micro Microbiology 06/23/19 Urine Culture - Final, Complete 06/23/19 Urine Culture Result 1 (TEREZA) - Final, Complete 06/22/19 Blood Culture - Final, Complete NO GROWTH AFTER 5 DAYS Objective Assessment Urinary tract infection. No leukocyte esterase or nitrite done. Not done again on repeat UA 06/24. urine had pus like appearance when Finley placement was attempted, yeast on uc likely colonization Finley now in place - cults neg Altered mental status, likely multifactorial. 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 Low-grade fevers - better Leukocytosis - improved - C-diff neg Anemia of chronic disease. Severe protein-calorie malnutrition per speech no aspiration but slow to swallow and not able to maintain adequate po Chronic atrial fibrillation. High troponin with working diagnosis of non-STEMI. Chronic sacral wound, superficial. Yeast in groin. treated Dysphagia on ngt h/o Enterobacter aerogenes, VRE, MSSA wound infection Plan Plan of Care d/c Vanc and Zosyn, Wound care per vascular, may need debridement, awaiting f/u Maintain aspiration precautions PEG placement Saturday Palliative consulted - aggressive measures continuing prognosis poor for [facility] D/w nursing d/w KELI Devlin MD Jul 08, 2019 08:33
[2019-07-08] MEDS: CYANOCOBALAMIN (VITAMIN B-12) 1,000 MCG TABLET. PEG SCH (09:10)
[2019-07-08] MEDS: ASPIRIN ENTERIC COATED 81 MG TABLET.DR. PO SCH (09:10)
[2019-07-08] MEDS: LACTOBACILLUS RHAMNOSUS GG 1 CAPSULE. PO SCH ×2 (09:10→22:01)
[2019-07-08] MEDS: FOLIC/VIT B COMP W-C (RENAL) TABLET. PEG SCH (09:10)
[2019-07-08] MEDS: ALLOPURINOL 100 MG TABLET. PEG SCH (09:11)
[2019-07-08] MEDS: METOPROLOL SUCC 24HR ER 25 MG TAB.ER.24H. PO SCH (09:11)
[2019-07-08] MEDS: PANTOPRAZOLE 40 MG TABLET.DR. PO SCH (09:11)
[2019-07-08] MEDS: HEPARIN for SUB-Q USE 5,000 UNIT/ML VIAL. SQ SCH ×2 (09:35→22:04)
--- NOTE | 2019-07-08 09:45 | PDOC ---
Provider Note Provider Note Vascular S: Patient seen and examined in room. Dr. Ceja present for examination. Patient complains of pain during dressing change left BKA O: Awake and alert, oriented to person VSS, afebrile Left BKA wound inspected, small amount fibrin slough, debrided by Dr. Ceja. Beefy granulation tissue throughout. Periwound intact. A/P: Left BKA wound, granulating and healing nicely. Continue wound vac therapy. Follow up in [facility]. STANLEY DUMONT APRN Jul 08, 2019 09:45
--- NOTE | 2019-07-08 09:51 | PDOC ---
Objective: Objective: No issues w/ PEG per nurse. Vital Signs: Vital Signs Date Time Temp Pulse Resp B/P (MAP) Pulse Ox O2 Delivery O2 Flow Rate FiO2 07/08/19 09:40 59 111/55 07/08/19 07:00 97.3 18 94 Room Air 97.3 Labs: Laboratory Tests Test 07/07/19 12:10 07/07/19 17:34 07/07/19 20:45 07/08/19 03:00 Glucose (Fingerstick) 111 mg/dL 138 mg/dL 127 mg/dL White Blood Count 10.4 x10^3/uL Red Blood Count 3.32 x10^6/uL Hemoglobin 9.3 g/dL Hematocrit 28.6 % Mean Corpuscular Volume 86 fL Mean Corpuscular Hemoglobin 28 pg Mean Corpuscular Hemoglobin Concent 32 g/dL Red Cell Distribution Width 19.0 % Platelet Count 363 x10^3/uL Neutrophils (%) (Auto) 73 % Lymphocytes (%) (Auto) 16 % Monocytes (%) (Auto) 7 % Eosinophils (%) (Auto) 4 % Basophils (%) (Auto) 1 % Neutrophils # (Auto) 7.5 x10^3/uL Lymphocytes # (Auto) 1.7 x10^3/uL Monocytes # (Auto) 0.7 x10^3/uL Eosinophils # (Auto) 0.4 x10^3/uL Basophils # (Auto) 0.1 x10^3/uL Sodium Level 136 mmol/L Potassium Level 3.6 mmol/L Chloride Level 97 mmol/L Carbon Dioxide Level 27 mmol/L Anion Gap 12 Blood Urea Nitrogen 27 mg/dL Creatinine 5.1 mg/dL Estimated GFR (Cockcroft-Gault) 13.3 Glucose Level 207 mg/dL Calcium Level 8.9 mg/dL Test 07/08/19 07:57 Glucose (Fingerstick) 182 mg/dL Imaging: MPI 07/07 Conclusion 1. Regadenoson cardioisotope stress test showed motion artifact without any definite evidence of ischemia or infarct. 2. Abnormal septal wall motion probably from paced rhythm. Left ventricular ejection fraction was calculated at 46%. 3. Low to intermediate risk for cardiac events. PE: GEN: NAD ABD: abd binder - tube feeds running NEURO/PSYCH: sleeping, not awakened A/P: Dysphagia/need for non-oral nutrition - s/p PEG -- Tube feeds running. 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 EULOGIO SOLORIO Jul 08, 2019 09:51
--- NOTE | 2019-07-08 10:30 | PDOC ---
Renal-Progress Notes Subjective Notes Notes NO NEW COMPLAINTS History of Present Illness Hx of present illness STABLE Vitals Vitals Vital Signs Date Time Temp Pulse Resp B/P (MAP) Pulse Ox O2 Delivery O2 Flow Rate FiO2 07/08/19 09:40 59 111/55 07/08/19 08:00 Room Air 07/08/19 07:00 97.3 18 94 97.3 Weight Weight [ ] I.O. Intake and Output Intake and Output 07/08/19 07:00 Intake Total 470 ml Output Total 50 ml Balance 420 ml Intake Oral 50 ml Tube Feeding 420 ml Output Urine Total 50 ml Labs Labs Laboratory Tests Test 07/07/19 12:10 07/07/19 17:34 07/07/19 20:45 07/08/19 03:00 Glucose (Fingerstick) 111 mg/dL (70-99) 138 mg/dL (70-99) 127 mg/dL (70-99) White Blood Count 10.4 x10^3/uL (4.0-11.0) Red Blood Count 3.32 x10^6/uL (4.30-5.70) Hemoglobin 9.3 g/dL (13.0-17.5) Hematocrit 28.6 % (39.0-53.0) Mean Corpuscular Volume 86 fL (79-100) Mean Corpuscular Hemoglobin 28 pg (25-35) Mean Corpuscular Hemoglobin Concent 32 g/dL (31-37) Red Cell Distribution Width 19.0 % (11.5-14.5) Platelet Count 363 x10^3/uL (140-400) Neutrophils (%) (Auto) 73 % (31-73) Lymphocytes (%) (Auto) 16 % (24-48) Monocytes (%) (Auto) 7 % (0-9) Eosinophils (%) (Auto) 4 % (0-3) Basophils (%) (Auto) 1 % (0-3) Neutrophils # (Auto) 7.5 x10^3/uL (1.8-7.7) Lymphocytes # (Auto) 1.7 x10^3/uL (1.0-4.8) Monocytes # (Auto) 0.7 x10^3/uL (0.0-1.1) Eosinophils # (Auto) 0.4 x10^3/uL (0.0-0.7) Basophils # (Auto) 0.1 x10^3/uL (0.0-0.2) Sodium Level 136 mmol/L (136-145) Potassium Level 3.6 mmol/L (3.5-5.1) Chloride Level 97 mmol/L (98-107) Carbon Dioxide Level 27 mmol/L (21-32) Anion Gap 12 (6-14) Blood Urea Nitrogen 27 mg/dL (8-26) Creatinine 5.1 mg/dL (0.7-1.3) Estimated GFR (Cockcroft-Gault) 13.3 Glucose Level 207 mg/dL (70-99) Calcium Level 8.9 mg/dL (8.5-10.1) Test 07/08/19 07:57 Glucose (Fingerstick) 182 mg/dL (70-99) Micro Micro Microbiology 06/23/19 Urine Culture - Final, Complete 06/23/19 Urine Culture Result 1 (TEREZA) - Final, Complete 06/22/19 Blood Culture - Final, Complete NO GROWTH AFTER 5 DAYS Review of Systems Constitutional: yes: other Physical Exam General Appearance: no apparent distress Skin: warm Respiratory: bilateral CTA Heart: S1S2 Abdomen: soft, bowel sounds present Genitourinary: bladder flat Extremities: pulses present Neurology: alert, follow commands, other (oriented to self) Assessment Assessment IMP UTI ? INFECTED BKA STUMP ANEMIA DM II HTN ESRD MET ENCEPHALOPATHY DYSPHAGIA PLAN CONT ANTIBIOTICS WOUND CARE HD TODAY UF TO DW PEG DONE-CONT TF VASCULAR FOLLOWING NANCY LIU MD Jul 08, 2019 10:30
--- NOTE | 2019-07-08 10:31 | PDOC ---
PROGRESS NOTES Assessment Problems Medical Problems: (1) Altered mental status Status: Acute (2) Anemia in chronic illness Status: Chronic (3) CAD (coronary artery disease) Status: Chronic (4) Chronic a-fib Status: Chronic (5) DM2 (diabetes mellitus, type 2) Status: Chronic (6) ESRD (end stage renal disease) Status: Acute (7) HTN (hypertension) Status: Chronic (8) Metabolic encephalopathy Status: Acute (9) NSTEMI (non-ST elevated myocardial infarction) Status: Acute (10) Paroxysmal A-fib Status: Acute (11) Peripheral artery disease Status: Chronic (12) Severe protein-calorie malnutrition Status: Chronic (13) SSS (sick sinus syndrome) Status: Chronic (14) UTI (urinary tract infection) Status: Acute Metabolic encephalopathy with probable underlying dementia, related to urinary tract infection and leg wounds, no evidence of primary central nervous system infection, new stroke, or ongoing seizure activity. Has NSTEMI. MRI, 06/26/19, negative for acute stroke. He is declining Elevated ESR Dysphagia improved, unable to sustain nutrition, had PEG placed Other medical issues: stump wound infection, diabetes mellitus type 2, peripheral arterial disease, end-stage renal disease, on hemodialysis, paroxysmal atrial fibrillation not a coumadin candidate with recent history of retroperitoneal bleed on anticoagulants and fall risks, severe protein-calorie malnutrition, anemia of chronic disease. Plan Treat medical diseases No additional neurological studies needed. Subjective Denies pain Objective Vital Signs Date Time Temp Pulse Resp B/P (MAP) Pulse Ox O2 Delivery O2 Flow Rate FiO2 07/08/19 09:40 59 111/55 07/08/19 08:00 Room Air 07/08/19 07:00 97.3 18 94 97.3 Intake and Output 07/08/19 07:00 Intake Total 470 ml Output Total 50 ml Balance 420 ml Intake Oral 50 ml Tube Feeding 420 ml Output Urine Total 50 ml PHYSICAL EXAM Alert, follows commands,oriented to person, knows location, not date PERRL. EOMI. CN: no focal findings. Muscle tone: normal. Muscle strength: 4/5 DTR: 0-1+ Plantar reflex: Bilateral below the knee amputations Gait: not examined in bed. Sensory exam: no abnormal findings. No cerebellar signs elicited. Review of Relevant I have reviewed the following items soumya (where applicable) has been applied. Labs Laboratory Tests Test 07/06/19 18:19 07/06/19 21:15 07/07/19 08:48 07/07/19 12:10 Glucose (Fingerstick) 79 mg/dL (70-99) 108 mg/dL (70-99) 98 mg/dL (70-99) 111 mg/dL (70-99) Test 07/07/19 17:34 07/07/19 20:45 07/08/19 03:00 07/08/19 07:57 Glucose (Fingerstick) 138 mg/dL (70-99) 127 mg/dL (70-99) 182 mg/dL (70-99) White Blood Count 10.4 x10^3/uL (4.0-11.0) Red Blood Count 3.32 x10^6/uL (4.30-5.70) Hemoglobin 9.3 g/dL (13.0-17.5) Hematocrit 28.6 % (39.0-53.0) Mean Corpuscular Volume 86 fL (79-100) Mean Corpuscular Hemoglobin 28 pg (25-35) Mean Corpuscular Hemoglobin Concent 32 g/dL (31-37) Red Cell Distribution Width 19.0 % (11.5-14.5) Platelet Count 363 x10^3/uL (140-400) Neutrophils (%) (Auto) 73 % (31-73) Lymphocytes (%) (Auto) 16 % (24-48) Monocytes (%) (Auto) 7 % (0-9) Eosinophils (%) (Auto) 4 % (0-3) Basophils (%) (Auto) 1 % (0-3) Neutrophils # (Auto) 7.5 x10^3/uL (1.8-7.7) Lymphocytes # (Auto) 1.7 x10^3/uL (1.0-4.8) Monocytes # (Auto) 0.7 x10^3/uL (0.0-1.1) Eosinophils # (Auto) 0.4 x10^3/uL (0.0-0.7) Basophils # (Auto) 0.1 x10^3/uL (0.0-0.2) Sodium Level 136 mmol/L (136-145) Potassium Level 3.6 mmol/L (3.5-5.1) Chloride Level 97 mmol/L (98-107) Carbon Dioxide Level 27 mmol/L (21-32) Anion Gap 12 (6-14) Blood Urea Nitrogen 27 mg/dL (8-26) Creatinine 5.1 mg/dL (0.7-1.3) Estimated GFR (Cockcroft-Gault) 13.3 Glucose Level 207 mg/dL (70-99) Calcium Level 8.9 mg/dL (8.5-10.1) Laboratory Tests Test 07/07/19 12:10 07/07/19 17:34 07/07/19 20:45 07/08/19 03:00 Glucose (Fingerstick) 111 mg/dL (70-99) 138 mg/dL (70-99) 127 mg/dL (70-99) White Blood Count 10.4 x10^3/uL (4.0-11.0) Red Blood Count 3.32 x10^6/uL (4.30-5.70) Hemoglobin 9.3 g/dL (13.0-17.5) Hematocrit 28.6 % (39.0-53.0) Mean Corpuscular Volume 86 fL (79-100) Mean Corpuscular Hemoglobin 28 pg (25-35) Mean Corpuscular Hemoglobin Concent 32 g/dL (31-37) Red Cell Distribution Width 19.0 % (11.5-14.5) Platelet Count 363 x10^3/uL (140-400) Neutrophils (%) (Auto) 73 % (31-73) Lymphocytes (%) (Auto) 16 % (24-48) Monocytes (%) (Auto) 7 % (0-9) Eosinophils (%) (Auto) 4 % (0-3) Basophils (%) (Auto) 1 % (0-3) Neutrophils # (Auto) 7.5 x10^3/uL (1.8-7.7) Lymphocytes # (Auto) 1.7 x10^3/uL (1.0-4.8) Monocytes # (Auto) 0.7 x10^3/uL (0.0-1.1) Eosinophils # (Auto) 0.4 x10^3/uL (0.0-0.7) Basophils # (Auto) 0.1 x10^3/uL (0.0-0.2) Sodium Level 136 mmol/L (136-145) Potassium Level 3.6 mmol/L (3.5-5.1) Chloride Level 97 mmol/L (98-107) Carbon Dioxide Level 27 mmol/L (21-32) Anion Gap 12 (6-14) Blood Urea Nitrogen 27 mg/dL (8-26) Creatinine 5.1 mg/dL (0.7-1.3) Estimated GFR (Cockcroft-Gault) 13.3 Glucose Level 207 mg/dL (70-99) Calcium Level 8.9 mg/dL (8.5-10.1) Test 07/08/19 07:57 Glucose (Fingerstick) 182 mg/dL (70-99) Microbiology 06/23/19 Urine Culture - Final, Complete 06/23/19 Urine Culture Result 1 (TEREZA) - Final, Complete 06/22/19 Blood Culture - Final, Complete NO GROWTH AFTER 5 DAYS Medications Current Medications Vancomycin HCl 250 ml @ 250 mls/hr 1X ONCE IV ; Start 06/22/19 at 10:45; Stop 06/22/19 at 11:44; Status UNV Piperacillin Sod/ Tazobactam Sod 2.25 gm/Sodium Chloride 50 ml @ 100 mls/hr 1X ONCE IV Last administered on 06/22/19at 11:55; Start 06/22/19 at 10:45; Stop 06/22/19 at 11:14; Status DC Sodium Chloride 1,000 ml @ 100 mls/hr Q10H IV Last administered on 06/22/19at 11:55; Start 06/22/19 at 10:38; Stop 06/22/19 at 20:37; Status DC Vancomycin HCl 2 gm/Sodium Chloride 500 ml @ 250 mls/hr 1X ONCE IV Last administered on 06/22/19at 12:32; Start 06/22/19 at 11:30; Stop 06/22/19 at 13:29; Status DC Info (PHARMACY MONITORING -- do not chart) 1 each PRN DAILY PRN MC SEE COMMENTS; Start 06/22/19 at 16:30; Stop 06/24/19 at 11:38; Status DC Info (PHARMACY MONITORING -- do not chart) 1 each PRN DAILY PRN MC SEE COMMENTS; Start 06/22/19 at 16:30; Status UNV Sodium Chloride 1,000 ml @ 40 mls/hr Q24H IV Last administered on 06/24/19at 18:31; Start 06/22/19 at 17:30; Stop 06/25/19 at 19:44; Status DC Vancomycin HCl (Vanco Per Pharmacy) 1 each PRN DAILY PRN MC SEE COMMENTS Last administered on 07/07/19at 10:58; Start 06/22/19 at 17:30; Stop 07/08/19 at 08:37; Status DC Piperacillin Sod/ Tazobactam Sod (Zosyn Per Pharmacy) 1 each PRN DAILY PRN MC SEE COMMENTS; Start 06/22/19 at 17:30; Stop 07/08/19 at 08:37; Status DC Acetaminophen (Tylenol) 650 mg PRN Q6HRS PRN PO MILD PAIN / TEMP; Start 06/22/19 at 17:30; Stop 06/25/19 at 18:15; Status DC Ondansetron HCl (Zofran) 4 mg PRN Q6HRS PRN IV NAUSEA/VOMITING; Start 06/22/19 at 17:30 Clopidogrel Bisulfate (Plavix) 75 mg DAILYWBKFT PO Last administered on 07/02/19at 10:00; Start 06/23/19 at 08:00; Stop 07/02/19 at 14:26; Status DC Vitamin B Complex/ Vitamin C (Rosalie-Judah) 1 tab DAILY PO Last administered on 07/06/19at 18:06; Start 06/23/19 at 09:00; Stop 07/07/19 at 07:30; Status DC Allopurinol (Zyloprim) 100 mg DAILY PO ; Start 06/23/19 at 09:00; Stop 06/25/19 at 18:17; Status DC Atorvastatin Calcium (Lipitor) 40 mg QHS PO Last administered on 06/22/19at 21:37; Start 06/22/19 at 21:00; Stop 06/25/19 at 12:19; Status DC Pantoprazole Sodium (Protonix) 40 mg DAILYAC PO Last administered on 07/08/19at 09:40; Start 06/23/19 at 07:30 Cyanocobalamin (Vitamin B-12) 1,000 mcg DAILY PO Last administered on 07/06/19at 18:06; Start 06/23/19 at 09:00; Stop 07/07/19 at 07:30; Status DC Piperacillin Sod/ Tazobactam Sod 2.25 gm/Sodium Chloride 50 ml @ 100 mls/hr Q8HRS IV Last administered on 07/08/19at 04:08; Start 06/22/19 at 21:00; Stop 07/08/19 at 08:34; Status DC Heparin Sodium (Porcine) (Heparin Sodium) 5,000 unit BID SQ Last administered on 06/22/19at 21:37; Start 06/22/19 at 21:00; Stop 06/23/19 at 08:23; Status DC Insulin Human Lispro (HumaLOG) 0-6 UNITS BG 400-49... TIDWMEALS SQ Last administered on 07/05/19at 12:23; Start 06/23/19 at 08:00 Vancomycin HCl (Vancomycin Random Level) 1 each 1X ONCE MC Last administered on 06/24/19at 06:37; Start 06/24/19 at 06:00; Stop 06/24/19 at 06:01; Status DC Heparin Sodium/ Dextrose 500 ml @ 19.3 mls/hr CONT PRN IV SEE I/O RECORD; Start 06/23/19 at 08:30; Stop 06/23/19 at 14:53; Status DC Heparin Sodium (Porcine) (Heparin Sodium) 2,000 unit PRN Q6HRS PRN IV FOR UFH LEVEL LESS THAN 0.2; Start 06/23/19 at 08:30; Stop 06/23/19 at 14:53; Status DC Aspirin (Ecotrin) 325 mg 1X ONCE PO ; Start 06/23/19 at 10:30; Stop 06/23/19 at 10:31; Status DC Aspirin (Ecotrin) 81 mg DAILYWBKFT PO ; Start 06/24/19 at 08:00; Stop 06/25/19 at 18:16; Status DC Ondansetron HCl (Zofran) 4 mg PRN Q6HRS PRN IV NAUSEA/VOMITING; Start 06/24/19 at 07:00; Stop 06/25/19 at 06:59; Status DC Morphine Sulfate (Morphine Sulfate) 1 mg PRN Q10MIN PRN IV SEVERE PAIN 7-10; Start 06/24/19 at 07:00; Stop 06/24/19 at 10:06; Status DC Ringer's Solution 1,000 ml @ 30 mls/hr Q24H IV ; Start 06/24/19 at 07:00; Stop 06/24/19 at 18:59; Status DC Lidocaine HCl (Xylocaine-Mpf 1% 2ml Vial) 2 ml PRN 1X PRN ID PRIOR TO IV START; Start 06/24/19 at 07:00; Stop 06/25/19 at 06:59; Status DC Hydromorphone HCl (Dilaudid) 0.5 mg PRN Q10MIN PRN IV SEV PAIN, Second choice; Start 06/24/19 at 07:00; Stop 06/24/19 at 10:06; Status DC Info (Anti-Coagulation Monitoring By Pharmacy) 1 each PRN DAILY PRN MC SEE COMMENTS Last administered on 06/30/19at 10:17; Start 06/23/19 at 14:30; Stop 06/30/19 at 10:22; Status DC Enoxaparin Sodium (Lovenox Per Pharmacy Treatment Dosing) 1 each 1X PRN MC SEE COMMENTS; Start 06/23/19 at 14:45; Stop 06/23/19 at 21:00; Status DC Enoxaparin Sodium (Lovenox 80mg Syringe) 80 mg 1X ONCE SQ Last administered on 06/23/19at 15:16; Start 06/23/19 at 15:30; Stop 06/23/19 at 15:31; Status DC Heparin Sodium (Porcine) (Heparin Sodium) 5,000 unit Q12HR SQ Last administered on 07/08/19at 09:40; Start 06/24/19 at 11:00 Acetaminophen (Tylenol Supp) 650 mg PRN Q6HRS PRN MD MILD PAIN / TEMP Last administered on 06/24/19at 23:03; Start 06/24/19 at 10:30; Stop 06/28/19 at 1 1:19; Status DC Tramadol HCl (Ultram) 25 mg PRN Q6HRS PRN PO PAIN MODERATE PAIN Last administered on 07/02/19at 12:40; Start 06/24/19 at 10:30; Stop 07/07/19 at 07:30; Status DC Ketorolac Tromethamine (Toradol 15mg Vial) 15 mg PRN Q6HRS PRN IV PAIN Last administered on 06/28/19at 17:19; Start 06/24/19 at 10:30; Stop 06/29/19 at 10:29; Status DC Sodium Chloride 1,000 ml @ 1,000 mls/hr Q1H PRN IV hypotension; Start 06/24/19 at 11:27; Stop 06/24/19 at 17:26; Status DC Sodium Chloride 1,000 ml @ 400 mls/hr Q2H30M PRN IV PATENCY; Start 06/24/19 at 11:27; Stop 06/24/19 at 23:26; Status DC Info (PHARMACY MONITORING -- do not chart) 1 each PRN DAILY PRN MC SEE COMMENTS; Start 06/24/19 at 11:30; Status Cancel Info (PHARMACY MONITORING -- do not chart) 1 each PRN DAILY PRN MC SEE COMMENTS; Start 06/24/19 at 11:30; Status UNV Vancomycin HCl 500 mg/Sodium Chloride 100 ml @ 100 mls/hr QMWF IV Last administered on 07/06/19at 18:06; Start 06/24/19 at 16:00; Stop 07/08/19 at 08:34; Status DC Dextrose (Dextrose 50%-Water Syringe) 12.5 gm PRN Q15MIN PRN IV SEE COMMENTS Last administered on 06/25/19at 01:41; Start 06/25/19 at 01:30 Dextrose 250 ml PRN Q15MIN PRN IV SEE COMMENTS; Start 06/25/19 at 01:30 Micafungin Sodium 100 mg/Dextrose 100 ml @ 100 mls/hr Q24H IV Last administered on 07/02/19at 16:45; Start 06/25/19 at 09:00; Stop 07/03/19 at 08:21; Status DC Metoprolol Tartrate (Lopressor Vial) 2.5 mg Q6HRS IVP Last administered on 06/27/19at 17:59; Start 06/25/19 at 18:00; Stop 06/28/19 at 11:19; Status DC Atorvastatin Calcium (Lipitor) 10 mg QHS PEG Last administered on 07/07/19at 21:51; Start 06/25/19 at 21:00 Ondansetron HCl (Zofran) 4 mg PRN Q6HRS PRN IV NAUSEA/VOMITING; Start 06/26/19 at 07:00; Stop 06/27/19 at 06:59; Status DC Morphine Sulfate (Morphine Sulfate) 1 mg PRN Q10MIN PRN IV SEVERE PAIN 7-10; Start 06/26/19 at 07:00; Stop 06/27/19 at 06:59; Status DC Ringer's Solution 1,000 ml @ 30 mls/hr Q24H IV ; Start 06/26/19 at 07:00; Stop 06/26/19 at 18:59; Status DC Lidocaine HCl (Xylocaine-Mpf 1% 2ml Vial) 2 ml PRN 1X PRN ID PRIOR TO IV START; Start 06/26/19 at 07:00; Stop 06/27/19 at 06:59; Status DC Hydromorphone HCl (Dilaudid) 0.5 mg PRN Q10MIN PRN IV SEV PAIN, Second choice; Start 06/26/19 at 07:00; Stop 06/27/19 at 06:59; Status DC Acetaminophen (Tylenol) 650 mg PRN Q6HRS PRN PEG MILD PAIN / TEMP Last administered on 07/08/19at 04:08; Start 06/25/19 at 18:15 Aspirin (Children'S Aspirin) 81 mg DAILYWBKFT PEG Last administered on 07/03/19at 14:09; Start 06/26/19 at 08:00; Stop 07/03/19 at 15:55; Status DC Allopurinol (Zyloprim) 100 mg DAILY PEG Last administered on 07/08/19at 09:40; Start 06/25/19 at 18:17 Quetiapine Fumarate (SEROquel) 12.5 mg PRN Q8HRS PRN PO PSYCHOTIC BEHAVIOR Last administered on 07/05/19at 20:37; Start 06/25/19 at 19:45; Stop 07/07/19 at 07:30; Status DC Vitamin A/Vitamin D (Vitamin A & D Ointment) 1 héctor PRN BID PRN TP SKIN PROTECTION Last administered on 07/02/19at 10:00; Start 06/26/19 at 06:00 Sodium Chloride 1,000 ml @ 1,000 mls/hr Q1H PRN IV hypotension; Start 06/26/19 at 12:41; Stop 06/26/19 at 18:40; Status DC Info (PHARMACY MONITORING -- do not chart) 1 each PRN DAILY PRN MC SEE COMMENTS; Start 06/26/19 at 12:45; Status UNV Info (PHARMACY MONITORING -- do not chart) 1 each PRN DAILY PRN MC SEE COMMENTS; Start 06/26/19 at 12:45; Status Cancel Sodium Chloride 1,000 ml @ 1,000 mls/hr Q1H PRN IV hypotension; Start 06/29/19 at 12:00; Stop 06/29/19 at 17:59; Status DC Sodium Chloride 1,000 ml @ 400 mls/hr Q2H30M PRN IV PATENCY; Start 06/29/19 at 12:00; Stop 06/29/19 at 23:59; Status DC Info (PHARMACY MONITORING -- do not chart) 1 each PRN DAILY PRN MC SEE COMMENTS; Start 06/29/19 at 16:00; Status UNV Info (PHARMACY MONITORING -- do not chart) 1 each PRN DAILY PRN MC SEE COMMENTS; Start 06/29/19 at 16:00; Status Cancel Info (PHARMACY MONITORING -- do not chart) 1 each PRN DAILY PRN MC SEE COMMENTS; Start 07/01/19 at 14:00; Status UNV Info (PHARMACY MONITORING -- do not chart) 1 each PRN DAILY PRN MC SEE COMMENTS; Start 07/01/19 at 14:00; Stop 07/03/19 at 07:29; Status DC Darbepoetin Chito (ARANESP for DIALYSIS PTS) 60 mcg WEEKLYHS SQ Last administered on 07/01/19at 21:48; Start 07/01/19 at 21:00 Vancomycin HCl (Vancomycin Random Level) 1 each 1X ONCE MC Last administered on 07/03/19at 06:19; Start 07/03/19 at 06:00; Stop 07/03/19 at 06:01; Status DC Lidocaine/Sodium Bicarbonate (Buffered Lidocaine 1%) 3 ml STK-MED ONCE .ROUTE ; Start 07/02/19 at 15:27; Stop 07/02/19 at 15:28; Status DC Dextrose/Sodium Chloride 1,000 ml @ 40 mls/hr Q24H IV Last administered on 07/06/19at 18:06; Start 07/02/19 at 17:00; Stop 07/07/19 at 14:16; Status DC Sodium Chloride 1,000 ml @ 1,000 mls/hr Q1H PRN IV hypotension; Start 07/03/19 at 07:18; Stop 07/03/19 at 13:17; Status DC Albumin Human 200 ml @ 200 mls/hr 1X PRN PRN IV Hypotension; Start 07/03/19 at 07:30; Stop 07/03/19 at 13:29; Status DC Acetaminophen (Tylenol) 500 mg 1X PRN PRN PO MILD PAIN / TEMP; Start 07/03/19 at 07:30; Stop 07/04/19 at 07:29; Status DC Diphenhydramine HCl (Benadryl) 25 mg 1X PRN PRN IV ITCHING; Start 07/03/19 at 07:30; Stop 07/04/19 at 07:29; Status DC Diphenhydramine HCl (Benadryl) 25 mg 1X PRN PRN IV ITCHING; Start 07/03/19 at 07:30; Stop 07/04/19 at 07:29; Status DC Sodium Chloride 1,000 ml @ 400 mls/hr Q2H30M PRN IV PATENCY; Start 07/03/19 at 07:18; Stop 07/03/19 at 19:17; Status DC Info (PHARMACY MONITORING -- do not chart) 1 each PRN DAILY PRN MC SEE COMMENTS ; Start 07/03/19 at 07:30 Info (PHARMACY MONITORING -- do not chart) 1 each PRN DAILY PRN MC SEE COMMENTS; Start 07/03/19 at 07:30; Status UNV Ondansetron HCl (Zofran) 4 mg PRN Q6HRS PRN IV NAUSEA/VOMITING; Start 07/06/19 at 07:00; Stop 07/07/19 at 06:59; Status DC Morphine Sulfate (Morphine Sulfate) 1 mg PRN Q10MIN PRN IV SEVERE PAIN 7-10; Start 07/06/19 at 07:00; Stop 07/07/19 at 06:59; Status DC Ringer's Solution 1,000 ml @ 30 mls/hr Q24H IV ; Start 07/06/19 at 07:00; Stop 07/06/19 at 18:59; Status DC Lidocaine HCl (Xylocaine-Mpf 1% 2ml Vial) 2 ml PRN 1X PRN ID PRIOR TO IV START; Start 07/06/19 at 07:00; Stop 07/07/19 at 06:59; Status DC Hydromorphone HCl (Dilaudid) 0.5 mg PRN Q10MIN PRN IV SEV PAIN, Second choice; Start 07/06/19 at 07:00; Stop 07/07/19 at 06:59; Status DC Metoprolol Succinate (Toprol Xl) 12.5 mg DAILY PO Last administered on 07/08/19at 09:40; Start 07/03/19 at 16:30 Aspirin (Ecotrin) 81 mg DAILYWBKFT PO Last administered on 07/08/19at 09:40; Start 07/04/19 at 08:00 Lactobacillus Rhamnosus (Culturelle) 1 cap BID PO Last administered on 07/08/19at 09:40; Start 07/06/19 at 21:00 Sodium Chloride 1,000 ml @ 100 mls/hr Q10H IV Last administered on 07/06/19at 12:58; Start 07/06/19 at 12:45; Stop 07/07/19 at 10:48; Status DC Propofol 20 ml @ As Directed STK-MED ONCE IV ; Start 07/06/19 at 12:36; Stop 07/06/19 at 12:36; Status DC Sodium Chloride 1,000 ml @ 1,000 mls/hr Q1H PRN IV hypotension; Start 07/06/19 at 13:28; Stop 07/06/19 at 19:27; Status DC Albumin Human 200 ml @ 200 mls/hr 1X PRN PRN IV Hypotension; Start 07/06/19 at 13:30; Stop 07/06/19 at 19:29; Status DC Sodium Chloride 1,000 ml @ 400 mls/hr Q2H30M PRN IV PATENCY; Start 07/06/19 at 13:28; Stop 07/07/19 at 01:27; Status DC Info (PHARMACY MONITORING -- do not chart) 1 each PRN DAILY PRN MC SEE COMMENTS; Start 07/06/19 at 13:30; Stop 07/06/19 at 13:41; Status DC Info (PHARMACY MONITORING -- do not chart) 1 each PRN DAILY PRN MC SEE COMMENTS; Start 07/06/19 at 13:30; Stop 07/06/19 at 13:41; Status DC Cyanocobalamin (Vitamin B-12) 1,000 mcg DAILY PEG Last administered on 07/08/19at 09:40; Start 07/07/19 at 08:00 Vitamin B Complex/ Vitamin C (Rosalie-Judah) 1 tab DAILY PEG Last administered on 07/08/19at 09:40; Start 07/07/19 at 08:00 Quetiapine Fumarate (SEROquel) 12.5 mg PRN Q8HRS PRN PEG PSYCHOTIC BEHAVIOR; Start 07/07/19 at 07:30 Tramadol HCl (Ultram) 25 mg PRN Q6HRS PRN PEG PAIN MODERATE PAIN; Start 07/07/19 at 07:30 Regadenoson (Lexiscan) 0.4 mg 1X ONCE IV Last administered on 07/07/19at 10:53; Start 07/07/19 at 09:30; Stop 07/07/19 at 09:31; Status DC Active Scripts Active [place] 5-325 Tablet (Acetaminophen/Hydrocodone Bitart) 1 Each Tablet 0.5 Tab PO Q4HRS Zyvox (Linezolid) 600 Mg Tablet 600 Mg PO BID 4 Days Amox Tr-K Clv 500-125 Mg Tab (Amoxicillin/Potassium Clav) 1 Each Tablet 1 Tab PO DAILY 4 Days Tramadol Hcl 50 Mg Tablet 50 Mg PO PRN Q6HRS PRN Ondansetron Odt (Ondansetron) 4 Mg Tab.rapdis 4 Mg PO Q6HRS PRN Humalog (Insulin Lispro) 100 Unit/1 Ml Insuln.pen 0 Units SQ TIDWMEALS 30 Days BG 150-199= 1 units 200-299= 2 units 300-399= 4 units 400-499= 6 units ac tid sliding scale Reported Omeprazole 20 Mg Tablet.dr 1 Tab PO DAILY Vitamin D3 (Cholecalciferol (Vitamin D3)) 1,000 Unit Tablet 1 Tab PO DAILY Vitamin B-12 (Cyanocobalamin (Vitamin B-12)) 1,000 Mcg Tablet 1 Tab PO DAILY Senna (Sennosides) 8.6 Mg Tablet 8.6 Mg PO PRN DAILY PRN 2 tabs Renvela (Sevelamer Carbonate) 800 Mg Tablet 800 Mg PO TIDWMEALS Renal Caps Softgel (Folic Acid/Vitamin B Comp W-C) 1 Mg Capsule 1 Mg PO DAILY Reglan (Metoclopramide Hcl) 10 Mg Tablet 5 Mg PO TID Probiotic (Lactobacillus Acidophilus) 1 Each Capsule 1 Each PO BID Milk Of Magnesia (Magnesium Hydroxide) 400 Mg/5 Ml Oral.susp 400 Mg PO PRN DAILY PRN Lipitor (Atorvastatin Calcium) 40 Mg Tablet 1 Tab PO QHS Humalog (Insulin Lispro) 100 Unit/1 Ml Insuln.pen 100 Unit SQ TIDBFRMEAL 150-199=1 unit 200-299=2 units 300-399=4 units 100-499=6 units Clopidogrel (Clopidogrel Bisulfate) 75 Mg Tablet 1 Tab PO DAILY Duoneb 0.5-3(2.5) Mg/3 Ml (Albuterol/Ipratropium) 3 Ml Ampul.neb 3 Ml NEB PRN Q4HRS PRN Lac-Hydrin Five (Ammonium Lactate) 226 Gm Lotion 226 Gm TP BID Allopurinol 100 Mg Tablet 1 Tab PO DAILY Tylenol (Acetaminophen) 325 Mg Tablet 1 Tab PO PRN Q4HRS Aspirin 81 Mg Tab.chew 81 Mg PO DAILY Vitals/I & O Vital Sign - Last 24 Hours 07/07/19 07/07/19 07/07/19 07/07/19 11:00 12:10 15:00 19:00 Temp 98.1 97.9 98.0 98.1 97.9 98.0 Pulse 60 59 65 64 Resp 16 16 18 B/P (MAP) 104/41 (62) 112/55 115/64 (81) 134/69 (90) Pulse Ox 95 99 100 O2 Delivery Room Air Room Air Room Air 07/07/19 07/07/19 07/08/19 07/08/19 20:00 23:00 03:00 07:00 Temp 98.0 98.3 97.3 98.0 98.3 97.3 Pulse 57 63 59 Resp 22 20 18 B/P (MAP) 133/67 (89) 116/71 (86) 111/55 (73) Pulse Ox 99 98 94 O2 Delivery Room Air Room Air Room Air Room Air 07/08/19 07/08/19 08:00 09:40 Pulse 59 B/P (MAP) 111/55 O2 Delivery Room Air Intake and Output 07/07/19 07/07/19 07/08/19 15:00 23:00 07:00 Intake Total 100 ml 350 ml 20 ml Output Total 50 ml Balance 100 ml 350 ml -30 ml BAN TORRES MD Jul 08, 2019 10:31
[2019-07-08 10:58] VITALS: BP 128/56
[2019-07-08] MEDS ORDERED: IV NORMAL SALINE 1000ML BAG 1,000 ML IV PRN ×2 (12:46)
[2019-07-08] MEDS ORDERED: ACETAMINOPHEN 500 MG TABLET PO PRN (13:00)
[2019-07-08] MEDS ORDERED: DIALYSIS PATIENT. MC PRN (13:00)
[2019-07-08] MEDS ORDERED: diphenhydrAMINE 50 MG/ML VIAL IV PRN ×2 (13:00)
[2019-07-08 19:20] VITALS: BP 127/55
[2019-07-08] MEDS: ATORVASTATIN CALCIUM 10 MG TABLET. PEG SCH (22:01)
[2019-07-08] MEDS: DARBEPOETIN ALFA 60 MCG/0.3 ML DISP.SYRIN. SQ SCH (22:02)
[2019-07-08 23:20] VITALS: BP 136/68
[2019-07-09] MEDS: traMADol 50 MG TABLET PEG PRN ×2 (00:08→13:47)
[2019-07-09 03:09] VITALS: BP 113/51
[2019-07-09 07:00] VITALS: BP 133/67
[2019-07-09] MEDS: INSULIN LISPRO 300 UNITS/3 ML VIAL. SQ SCH ×2 (08:00→13:14)
[2019-07-09] MEDS: ASPIRIN ENTERIC COATED 81 MG TABLET.DR. PO SCH (08:55)
[2019-07-09] MEDS: ALLOPURINOL 100 MG TABLET. PEG SCH (08:55)
[2019-07-09] MEDS: LACTOBACILLUS RHAMNOSUS GG 1 CAPSULE. PO SCH (08:55)
[2019-07-09] MEDS: CYANOCOBALAMIN (VITAMIN B-12) 1,000 MCG TABLET. PEG SCH (08:55)
[2019-07-09] MEDS: PANTOPRAZOLE 40 MG TABLET.DR. PO SCH (08:56)
[2019-07-09] MEDS: METOPROLOL SUCC 24HR ER 25 MG TAB.ER.24H. PO SCH (08:56)
[2019-07-09] MEDS: FOLIC/VIT B COMP W-C (RENAL) TABLET. PEG SCH (08:56)
[2019-07-09] MEDS: HEPARIN for SUB-Q USE 5,000 UNIT/ML VIAL. SQ SCH (09:16)
[2019-07-09 11:00] VITALS: BP 121/53
--- NOTE | 2019-07-09 11:37 | PDOC ---
PROGRESS NOTES Subjective Subjective wound debrided by dr. cain and wound vac noted. off of iv antibiotics. feels the same Objective Objective Vital Signs Date Time Temp Pulse Resp B/P (MAP) Pulse Ox O2 Delivery O2 Flow Rate FiO2 07/09/19 08:56 60 133/67 07/09/19 08:00 Room Air 07/09/19 07:00 96.7 18 99 96.7 Intake and Output 07/09/19 06:59 Intake Total 2470 ml Output Total 25 ml Balance 2445 ml Intake Oral 270 ml Tube Feeding 2200 ml Output Urine Total 25 ml Gastric Drainage Total 0 ml # Bowel Movements 3 Physical Exam Abdomen: Soft Heart: Regular rate, Normal S1 Extremities: Other (bilateral BKA with left BKA stump wound vac) General: Alert HEENT: Atraumatic Lungs: Clear to auscultation Neuro: Normal speech Psych/Mental Status: Mood NL Skin: No rashes Assessment Assessment Problems metabolic encephalopathy. better 2. 3. Bilateral below-knee amputation. 4. left below-knee amputation stump wound treated with wound vac 5. Diabetes mellitus type 2. 6. Peripheral arterial disease. 7. End-stage renal disease, on hemodialysis. m-w-f 8. paroxysmal atrial fibrillation. in nsr. not a coumadin candidate. recent hx of retroperitoneal bleed on anticoagulants and fall risk. 9. Severe protein-calorie malnutrition. 10. Anemia of chronic disease. NSTEMI oropharyngeal dysphagia on HTL pureed diet. PEG placed Medical Problems: (1) Altered mental status Status: Acute (2) Anemia in chronic illness Status: Chronic (3) CAD (coronary artery disease) Status: Chronic (4) Chronic a-fib Status: Chronic (5) DM2 (diabetes mellitus, type 2) Status: Chronic (6) ESRD (end stage renal disease) Status: Acute (7) HTN (hypertension) Status: Chronic (8) Metabolic encephalopathy Status: Acute (9) NSTEMI (non-ST elevated myocardial infarction) Status: Acute (10) Paroxysmal A-fib Status: Acute (11) Peripheral artery disease Status: Chronic (12) Severe protein-calorie malnutrition Status: Chronic (13) SSS (sick sinus syndrome) Status: Chronic (14) UTI (urinary tract infection) Status: Acute Plan Plan of Care dismiss to NH today Comment Review of Relevant I have reviewed the following items soumya (where applicable) has been applied. Labs Laboratory Tests Test 07/07/19 12:10 07/07/19 17:34 07/07/19 20:45 07/08/19 03:00 Glucose (Fingerstick) 111 mg/dL (70-99) 138 mg/dL (70-99) 127 mg/dL (70-99) White Blood Count 10.4 x10^3/uL (4.0-11.0) Red Blood Count 3.32 x10^6/uL (4.30-5.70) Hemoglobin 9.3 g/dL (13.0-17.5) Hematocrit 28.6 % (39.0-53.0) Mean Corpuscular Volume 86 fL (79-100) Mean Corpuscular Hemoglobin 28 pg (25-35) Mean Corpuscular Hemoglobin Concent 32 g/dL (31-37) Red Cell Distribution Width 19.0 % (11.5-14.5) Platelet Count 363 x10^3/uL (140-400) Neutrophils (%) (Auto) 73 % (31-73) Lymphocytes (%) (Auto) 16 % (24-48) Monocytes (%) (Auto) 7 % (0-9) Eosinophils (%) (Auto) 4 % (0-3) Basophils (%) (Auto) 1 % (0-3) Neutrophils # (Auto) 7.5 x10^3/uL (1.8-7.7) Lymphocytes # (Auto) 1.7 x10^3/uL (1.0-4.8) Monocytes # (Auto) 0.7 x10^3/uL (0.0-1.1) Eosinophils # (Auto) 0.4 x10^3/uL (0.0-0.7) Basophils # (Auto) 0.1 x10^3/uL (0.0-0.2) Sodium Level 136 mmol/L (136-145) Potassium Level 3.6 mmol/L (3.5-5.1) Chloride Level 97 mmol/L (98-107) Carbon Dioxide Level 27 mmol/L (21-32) Anion Gap 12 (6-14) Blood Urea Nitrogen 27 mg/dL (8-26) Creatinine 5.1 mg/dL (0.7-1.3) Estimated GFR (Cockcroft-Gault) 13.3 Glucose Level 207 mg/dL (70-99) Calcium Level 8.9 mg/dL (8.5-10.1) Test 07/08/19 07:57 07/08/19 11:31 07/08/19 17:11 07/08/19 21:33 Glucose (Fingerstick) 182 mg/dL (70-99) 165 mg/dL (70-99) 104 mg/dL (70-99) 108 mg/dL (70-99) Test 07/09/19 08:11 Glucose (Fingerstick) 141 mg/dL (70-99) Laboratory Tests Test 07/08/19 17:11 07/08/19 21:33 07/09/19 08:11 Glucose (Fingerstick) 104 mg/dL (70-99) 108 mg/dL (70-99) 141 mg/dL (70-99) Microbiology 06/23/19 Urine Culture - Final, Complete 06/23/19 Urine Culture Result 1 (TEREZA) - Final, Complete 06/22/19 Blood Culture - Final, Complete NO GROWTH AFTER 5 DAYS Medications Current Medications Vancomycin HCl 250 ml @ 250 mls/hr 1X ONCE IV ; Start 06/22/19 at 10:45; Stop 06/22/19 at 11:44; Status UNV Piperacillin Sod/ Tazobactam Sod 2.25 gm/Sodium Chloride 50 ml @ 100 mls/hr 1X ONCE IV Last administered on 06/22/19at 11:55; Start 06/22/19 at 10:45; Stop 06/22/19 at 11:14; Status DC Sodium Chloride 1,000 ml @ 100 mls/hr Q10H IV Last administered on 06/22/19at 11:55; Start 06/22/19 at 10:38; Stop 06/22/19 at 20:37; Status DC Vancomycin HCl 2 gm/Sodium Chloride 500 ml @ 250 mls/hr 1X ONCE IV Last administered on 06/22/19at 12:32; Start 06/22/19 at 11:30; Stop 06/22/19 at 13:29; Status DC Info (PHARMACY MONITORING -- do not chart) 1 each PRN DAILY PRN MC SEE Edward OMKELTON; Start 06/22/19 at 16:30; Stop 06/24/19 at 11:38; Status DC Info (PHARMACY MONITORING -- do not chart) 1 each PRN DAILY PRN MC SEE COMMENTS; Start 06/22/19 at 16:30; Status UNV Sodium Chloride 1,000 ml @ 40 mls/hr Q24H IV Last administered on 06/24/19at 18:31; Start 06/22/19 at 17:30; Stop 06/25/19 at 19:44; Status DC Vancomycin HCl (Vanco Per Pharmacy) 1 each PRN DAILY PRN MC SEE COMMENTS Last administered on 07/07/19at 10:58; Start 06/22/19 at 17:30; Stop 07/08/19 at 08:37; Status DC Piperacillin Sod/ Tazobactam Sod (Zosyn Per Pharmacy) 1 each PRN DAILY PRN MC SEE COMMENTS; Start 06/22/19 at 17:30; Stop 07/08/19 at 08:37; Status DC Acetaminophen (Tylenol) 650 mg PRN Q6HRS PRN PO MILD PAIN / TEMP; Start 06/22/19 at 17:30; Stop 06/25/19 at 18:15; Status DC Ondansetron HCl (Zofran) 4 mg PRN Q6HRS PRN IV NAUSEA/VOMITING; Start 06/22/19 at 17:30 Clopidogrel Bisulfate (Plavix) 75 mg DAILYWBKFT PO Last administered on 07/02/19at 10:00; Start 06/23/19 at 08:00; Stop 07/02/19 at 14:26; Status DC Vitamin B Complex/ Vitamin C (Carlos-Moses) 1 tab DAILY PO Last administered on 07/06/19at 18:06; Start 06/23/19 at 09:00; Stop 07/07/19 at 07:30; Status DC Allopurinol (Zyloprim) 100 mg DAILY PO ; Start 06/23/19 at 09:00; Stop 06/25/19 at 18:17; Status DC Atorvastatin Calcium (Lipitor) 40 mg QHS PO Last administered on 06/22/19at 21:37; Start 06/22/19 at 21:00; Stop 06/25/19 at 12:19; Status DC Pantoprazole Sodium (Protonix) 40 mg DAILYAC PO Last administered on 07/09/19at 08:56; Start 06/23/19 at 07:30 Cyanocobalamin (Vitamin B-12) 1,000 mcg DAILY PO Last administered on 07/06/19at 18:06; Start 06/23/19 at 09:00; Stop 07/07/19 at 07:30; Status DC Piperacillin Sod/ Tazobactam Sod 2.25 gm/Sodium Chloride 50 ml @ 100 mls/hr Q8HRS IV Last administered on 07/08/19at 04:08; Start 06/22/19 at 21:00; Stop 07/08/19 at 08:34; Status DC Heparin Sodium (Porcine) (Heparin Sodium) 5,000 unit BID SQ Last administered on 06/22/19at 21:37; Start 06/22/19 at 21:00; Stop 06/23/19 at 08:23; Status DC Insulin Human Lispro (HumaLOG) 0-6 UNITS BG 400-49... TIDWMEALS SQ Last administered on 07/05/19at 12:23; Start 06/23/19 at 08:00 Vancomycin HCl (Vancomycin Random Level) 1 each 1X ONCE MC Last administered on 06/24/19at 06:37; Start 06/24/19 at 06:00; Stop 06/24/19 at 06:01; Status DC Heparin Sodium/ Dextrose 500 ml @ 19.3 mls/hr CONT PRN IV SEE I/O RECORD; Start 06/23/19 at 08:30; Stop 06/23/19 at 14:53; Status DC Heparin Sodium (Porcine) (Heparin Sodium) 2,000 unit PRN Q6HRS PRN IV FOR UFH LEVEL LESS THAN 0.2; Start 06/23/19 at 08:30; Stop 06/23/19 at 14:53; Status DC Aspirin (Ecotrin) 325 mg 1X ONCE PO ; Start 06/23/19 at 10:30; Stop 06/23/19 at 10:31; Status DC Aspirin (Ecotrin) 81 mg DAILYWBKFT PO ; Start 06/24/19 at 08:00; Stop 06/25/19 at 18:16; Status DC Ondansetron HCl (Zofran) 4 mg PRN Q6HRS PRN IV NAUSEA/VOMITING; Start 06/24/19 at 07:00; Stop 06/25/19 at 06:59; Status DC Morphine Sulfate (Morphine Sulfate) 1 mg PRN Q10MIN PRN IV SEVERE PAIN 7-10; Start 06/24/19 at 07:00; Stop 06/24/19 at 10:06; Status DC Ringer's Solution 1,000 ml @ 30 mls/hr Q24H IV ; Start 06/24/19 at 07:00; Stop 06/24/19 at 18:59; Status DC Lidocaine HCl (Xylocaine-Mpf 1% 2ml Vial) 2 ml PRN 1X PRN ID PRIOR TO IV START; Start 06/24/19 at 07:00; Stop 06/25/19 at 06:59; Status DC Hydromorphone HCl (Dilaudid) 0.5 mg PRN Q10MIN PRN IV SEV PAIN, Second choice; Start 06/24/19 at 07:00; Stop 06/24/19 at 10:06; Status DC Info (Anti-Coagulation Monitoring By Pharmacy) 1 each PRN DAILY PRN MC SEE COMMENTS Last administered on 06/30/19at 10:17; Start 06/23/19 at 14:30; Stop 06/30/19 at 10:22; Status DC Enoxaparin Sodium (Lovenox Per Pharmacy Treatment Dosing) 1 each 1X PRN MC SEE COMMENTS; Start 06/23/19 at 14:45; Stop 06/23/19 at 21:00; Status DC Enoxaparin Sodium (Lovenox 80mg Syringe) 80 mg 1X ONCE SQ Last administered on 06/23/19at 15:16; Start 06/23/19 at 15:30; Stop 06/23/19 at 15:31; Status DC Heparin Sodium (Porcine) (Heparin Sodium) 5,000 unit Q12HR SQ Last administered on 07/09/19at 09:16; Start 06/24/19 at 11:00 Acetaminophen (Tylenol Supp) 650 mg PRN Q6HRS PRN AR MILD PAIN / TEMP Last administered on 06/24/19at 23:03; Start 06/24/19 at 10:30; Stop 06/28/19 at 11:19 ; Status DC Tramadol HCl (Ultram) 25 mg PRN Q6HRS PRN PO PAIN MODERATE PAIN Last administered on 07/02/19at 12:40; Start 06/24/19 at 10:30; Stop 07/07/19 at 07:30; Status DC Ketorolac Tromethamine (Toradol 15mg Vial) 15 mg PRN Q6HRS PRN IV PAIN Last adm inistered on 06/28/19at 17:19; Start 06/24/19 at 10:30; Stop 06/29/19 at 10:29; Status DC Sodium Chloride 1,000 ml @ 1,000 mls/hr Q1H PRN IV hypotension; Start 06/24/19 at 11:27; Stop 06/24/19 at 17:26; Status DC Sodium Chloride 1,000 ml @ 400 mls/hr Q2H30M PRN IV PATENCY; Start 06/24/19 at 11:27; Stop 06/24/19 at 23:26; Status DC Info (PHARMACY MONITORING -- do not chart) 1 each PRN DAILY PRN MC SEE COMMENTS; Start 06/24/19 at 11:30; Status Cancel Info (PHARMACY MONITORING -- do not chart) 1 each PRN DAILY PRN MC SEE COMMENTS; Start 06/24/19 at 11:30; Status UNV Vancomycin HCl 500 mg/Sodium Chloride 100 ml @ 100 mls/hr QMWF IV Last administered on 07/06/19at 18:06; Start 06/24/19 at 16:00; Stop 07/08/19 at 08:34; Status DC Dextrose (Dextrose 50%-Water Syringe) 12.5 gm PRN Q15MIN PRN IV SEE COMMENTS Last administered on 06/25/19at 01:41; Start 06/25/19 at 01:30 Dextrose 250 ml PRN Q15MIN PRN IV SEE COMMENTS; Start 06/25/19 at 01:30 Micafungin Sodium 100 mg/Dextrose 100 ml @ 100 mls/hr Q24H IV Last administered on 07/02/19at 16:45; Start 06/25/19 at 09:00; Stop 07/03/19 at 08:21; Status DC Metoprolol Tartrate (Lopressor Vial) 2.5 mg Q6HRS IVP Last administered on 06/27/19at 17:59; Start 06/25/19 at 18:00; Stop 06/28/19 at 11:19; Status DC Atorvastatin Calcium (Lipitor) 10 mg QHS PEG Last administered on 07/08/19at 22:01; Start 06/25/19 at 21:00 Ondansetron HCl (Zofran) 4 mg PRN Q6HRS PRN IV NAUSEA/VOMITING; Start 06/26/19 at 07:00; Stop 06/27/19 at 06:59; Status DC Morphine Sulfate (Morphine Sulfate) 1 mg PRN Q10MIN PRN IV SEVERE PAIN 7-10; Start 06/26/19 at 07:00; Stop 06/27/19 at 06:59; Status DC Ringer's Solution 1,000 ml @ 30 mls/hr Q24H IV ; Start 06/26/19 at 07:00; Stop 06/26/19 at 18:59; Status DC Lidocaine HCl (Xylocaine-Mpf 1% 2ml Vial) 2 ml PRN 1X PRN ID PRIOR TO IV START; Start 06/26/19 at 07:00; Stop 06/27/19 at 06:59; Status DC Hydromorphone HCl (Dilaudid) 0.5 mg PRN Q10MIN PRN IV SEV PAIN, Second choice; Start 06/26/19 at 07:00; Stop 06/27/19 at 06:59; Status DC Acetaminophen (Tylenol) 650 mg PRN Q6HRS PRN PEG MILD PAIN / TEMP Last administered on 07/08/19at 22:01; Start 06/25/19 at 18:15 Aspirin (Children'S Aspirin) 81 mg DAILYWBKFT PEG Last administered on 07/03/19at 14:09; Start 06/26/19 at 08:00; Stop 07/03/19 at 15:55; Status DC Allopurinol (Zyloprim) 100 mg DAILY PEG Last administered on 07/09/19at 08:55; Start 06/25/19 at 18:17 Quetiapine Fumarate (SEROquel) 12.5 mg PRN Q8HRS PRN PO PSYCHOTIC BEHAVIOR Last administered on 07/05/19at 20:37; Start 06/25/19 at 19:45; Stop 07/07/19 at 07:30; Status DC Vitamin A/Vitamin D (Vitamin A & D Ointment) 1 héctor PRN BID PRN TP SKIN PROTECTION Last administered on 07/02/19at 10:00; Start 06/26/19 at 06:00 Sodium Chloride 1,000 ml @ 1,000 mls/hr Q1H PRN IV hypotension; Start 06/26/19 at 12:41; Stop 06/26/19 at 18:40; Status DC Info (PHARMACY MONITORING -- do not chart) 1 each PRN DAILY PRN MC SEE COMMENTS; Start 06/26/19 at 12:45; Status UNV Info (PHARMACY MONITORING -- do not chart) 1 each PRN DAILY PRN MC SEE COMMENTS; Start 06/26/19 at 12:45; Status Cancel Sodium Chloride 1,000 ml @ 1,000 mls/hr Q1H PRN IV hypotension; Start 06/29/19 at 12:00; Stop 06/29/19 at 17:59; Status DC Sodium Chloride 1,000 ml @ 400 mls/hr Q2H30M PRN IV PATENCY; Start 06/29/19 at 12:00; Stop 06/29/19 at 23:59; Status DC Info (PHARMACY MONITORING -- do not chart) 1 each PRN DAILY PRN MC SEE COMMENTS; Start 06/29/19 at 16:00; Status UNV Info (PHARMACY MONITORING -- do not chart) 1 each PRN DAILY PRN MC SEE COMMENTS; Start 06/29/19 at 16:00; Status Cancel Info (PHARMACY MONITORING -- do not chart) 1 each PRN DAILY PRN MC SEE COMMENTS; Start 07/01/19 at 14:00; Status UNV Info (PHARMACY MONITORING -- do not chart) 1 each PRN DAILY PRN MC SEE COMMENTS; Start 07/01/19 at 14:00; Stop 07/03/19 at 07:29; Status DC Darbepoetin Chito (ARANESP for DIALYSIS PTS) 60 mcg WEEKLYHS SQ Last administered on 07/08/19at 22:02; Start 07/01/19 at 21:00 Vancomycin HCl (Vancomycin Random Level) 1 each 1X ONCE MC Last administered on 07/03/19at 06:19; Start 07/03/19 at 06:00; Stop 07/03/19 at 06:01; Status DC Lidocaine/Sodium Bicarbonate (Buffered Lidocaine 1%) 3 ml STK-MED ONCE .ROUTE ; Start 07/02/19 at 15:27; Stop 07/02/19 at 15:28; Status DC Dextrose/Sodium Chloride 1,000 ml @ 40 mls/hr Q24H IV Last administered on at 18:06; Start 07/02/19 at 17:00; Stop 07/07/19 at 14:16; Status DC Sodium Chloride 1,000 ml @ 1,000 mls/hr Q1H PRN IV hypotension; Start 07/03/19 at 07:18; Stop 07/03/19 at 13:17; Status DC Albumin Human 200 ml @ 200 mls/hr 1X PRN PRN IV Hypotension; Start 07/03/19 at 07:30; Stop 07/03/19 at 13:29; Status DC Acetaminophen (Tylenol) 500 mg 1X PRN PRN PO MILD PAIN / TEMP; Start 07/03/19 at 07:30; Stop 07/04/19 at 07:29; Status DC Diphenhydramine HCl (Benadryl) 25 mg 1X PRN PRN IV ITCHING; Start 07/03/19 at 07:30; Stop 07/04/19 at 07:29; Status DC Diphenhydramine HCl (Benadryl) 25 mg 1X PRN PRN IV ITCHING; Start 07/03/19 at 07:30; Stop 07/04/19 at 07:29; Status DC Sodium Chloride 1,000 ml @ 400 mls/hr Q2H30M PRN IV PATENCY; Start 07/03/19 at 07:18; Stop 07/03/19 at 19:17; Status DC Info (PHARMACY MONITORING -- do not chart) 1 each PRN DAILY PRN MC SEE COMMENTS; Start 07/03/19 at 07:30 Info (PHARMACY MONITORING -- do not chart) 1 each PRN DAILY PRN MC SEE COMMENTS; Start 07/03/19 at 07:30; Status UNV Ondansetron HCl (Zofran) 4 mg PRN Q6HRS PRN IV NAUSEA/VOMITING; Start 07/06/19 at 07:00; Stop 07/07/19 at 06:59; Status DC Morphine Sulfate (Morphine Sulfate) 1 mg PRN Q10MIN PRN IV SEVERE PAIN 7-10; Start 07/06/19 at 07:00; Stop 07/07/19 at 06:59; Status DC Ringer's Solution 1,000 ml @ 30 mls/hr Q24H IV ; Start 07/06/19 at 07:00; Stop 07/06/19 at 18:59; Status DC Lidocaine HCl (Xylocaine-Mpf 1% 2ml Vial) 2 ml PRN 1X PRN ID PRIOR TO IV START; Start 07/06/19 at 07:00; Stop 07/07/19 at 06:59; Status DC Hydromorphone HCl (Dilaudid) 0.5 mg PRN Q10MIN PRN IV SEV PAIN, Second choice; Start 07/06/19 at 07:00; Stop 07/07/19 at 06:59; Status DC Metoprolol Succinate (Toprol Xl) 12.5 mg DAILY PO Last administered on 07/09/19at 08:56; Start 07/03/19 at 16:30 Aspirin (Ecotrin) 81 mg DAILYWBKFT PO Last administered on 07/09/19at 08:55; Start 07/04/19 at 08:00 Lactobacillus Rhamnosus (Culturelle) 1 cap BID PO Last administered on 07/09/19at 08:55; Start 07/06/19 at 21:00 Sodium Chloride 1,000 ml @ 100 mls/hr Q10H IV Last administered on 07/06/19at 12:58; Start 07/06/19 at 12:45; Stop 07/07/19 at 10:48; Status DC Propofol 20 ml @ As Directed STK-MED ONCE IV ; Start 07/06/19 at 12:36; Stop 07/06/19 at 12:36; Status DC Sodium Chloride 1,000 ml @ 1,000 mls/hr Q1H PRN IV hypotension; Start 07/06/19 at 13:28; Stop 07/06/19 at 19:27; Status DC Albumin Human 200 ml @ 200 mls/hr 1X PRN PRN IV Hypotension; Start 07/06/19 at 13:30; Stop 07/06/19 at 19:29; Status DC Sodium Chloride 1,000 ml @ 400 mls/hr Q2H30M PRN IV PATENCY; Start 07/06/19 at 13:28; Stop 07/07/19 at 01:27; Status DC Info (PHARMACY MONITORING -- do not chart) 1 each PRN DAILY PRN MC SEE COMMENTS; Start 07/06/19 at 13:30; Stop 07/06/19 at 13:41; Status DC Info (PHARMACY MONITORING -- do not chart) 1 each PRN DAILY PRN MC SEE COMMENTS; Start 07/06/19 at 13:30; Stop 07/06/19 at 13:41; Status DC Cyanocobalamin (Vitamin B-12) 1,000 mcg DAILY PEG Last administered on 07/09/19at 08:55; Start 07/07/19 at 08:00 Vitamin B Complex/ Vitamin C (Carlos-Moses) 1 tab DAILY PEG Last administered on 07/09/19at 08:56; Start 07/07/19 at 08:00 Quetiapine Fumarate (SEROquel) 12.5 mg PRN Q8HRS PRN PEG PSYCHOTIC BEHAVIOR; Start 07/07/19 at 07:30 Tramadol HCl (Ultram) 25 mg PRN Q6HRS PRN PEG PAIN MODERATE PAIN Last administered on 07/09/19at 00:08; Start 07/07/19 at 07:30 Regadenoson (Lexiscan) 0.4 mg 1X ONCE IV Last administered on 07/07/19at 10:53; Start 07/07/19 at 09:30; Stop 07/07/19 at 09:31; Status DC Sodium Chloride 1,000 ml @ 1,000 mls/hr Q1H PRN IV hypotension; Start 07/08/19 at 12:46; Stop 07/08/19 at 18:45; Status DC Acetaminophen (Tylenol) 500 mg 1X PRN PRN PO MILD PAIN / TEMP; Start 07/08/19 at 13:00; Stop 07/09/19 at 12:59 Diphenhydramine HCl (Benadryl) 25 mg 1X PRN PRN IV ITCHING; Start 07/08/19 at 13:00; Stop 07/09/19 at 12:59 Diphenhydramine HCl (Benadryl) 25 mg 1X PRN PRN IV ITCHING; Start 07/08/19 at 13:00; Stop 07/09/19 at 12:59 Sodium Chloride 1,000 ml @ 400 mls/hr Q2H30M PRN IV PATENCY; Start 07/08/19 at 12:46; Stop 07/09/19 at 00:45; Status DC Info (PHARMACY MONITORING -- do not chart) 1 each PRN DAILY PRN MC SEE COMMENTS; Start 07/08/19 at 13:00 Active Scripts Active Varnell 5-325 Tablet (Acetaminophen/Hydrocodone Bitart) 1 Each Tablet 0.5 Tab PO Q4HRS Zyvox (Linezolid) 600 Mg Tablet 600 Mg PO BID 4 Days Amox Tr-K Clv 500-125 Mg Tab (Amoxicillin/Potassium Clav) 1 Each Tablet 1 Tab PO DAILY 4 Days Tramadol Hcl 50 Mg Tablet 50 Mg PO PRN Q6HRS PRN Ondansetron Odt (Ondansetron) 4 Mg Tab.rapdis 4 Mg PO Q6HRS PRN Humalog (Insulin Lispro) 100 Unit/1 Ml Insuln.pen 0 Units SQ TIDWMEALS 30 Days BG 150-199= 1 units 200-299= 2 units 300-399= 4 units 400-499= 6 units ac tid sliding scale Reported Omeprazole 20 Mg Tablet.dr 1 Tab PO DAILY Vitamin D3 (Cholecalciferol (Vitamin D3)) 1,000 Unit Tablet 1 Tab PO DAILY Vitamin B-12 (Cyanocobalamin (Vitamin B-12)) 1,000 Mcg Tablet 1 Tab PO DAILY Senna (Sennosides) 8.6 Mg Tablet 8.6 Mg PO PRN DAILY PRN 2 tabs Renvela (Sevelamer Carbonate) 800 Mg Tablet 800 Mg PO TIDWMEALS Renal Caps Softgel (Folic Acid/Vitamin B Comp W-C) 1 Mg Capsule 1 Mg PO DAILY Reglan (Metoclopramide Hcl) 10 Mg Tablet 5 Mg PO TID Probiotic (Lactobacillus Acidophilus) 1 Each Capsule 1 Each PO BID Milk Of Magnesia (Magnesium Hydroxide) 400 Mg/5 Ml Oral.susp 400 Mg PO PRN DAILY PRN Lipitor (Atorvastatin Calcium) 40 Mg Tablet 1 Tab PO QHS Humalog (Insulin Lispro) 100 Unit/1 Ml Insuln.pen 100 Unit SQ TIDBFRMEAL 150-199=1 unit 200-299=2 units 300-399=4 units 100-499=6 units Clopidogrel (Clopidogrel Bisulfate) 75 Mg Tablet 1 Tab PO DAILY Duoneb 0.5-3(2.5) Mg/3 Ml (Albuterol/Ipratropium) 3 Ml Ampul.neb 3 Ml NEB PRN Q4HRS PRN Lac-Hydrin Five (Ammonium Lactate) 226 Gm Lotion 226 Gm TP BID Allopurinol 100 Mg Tablet 1 Tab PO DAILY Tylenol (Acetaminophen) 325 Mg Tablet 1 Tab PO PRN Q4HRS Aspirin 81 Mg Tab.chew 81 Mg PO DAILY Vitals/I & O Vital Sign - Last 24 Hours 07/08/19 07/08/19 07/08/19 07/09/19 19:20 20:00 23:20 03:09 Temp 98.1 98.2 97.4 98.1 98.2 97.4 Pulse 63 64 59 Resp 18 20 16 B/P (MAP) 127/55 (79) 136/68 (90) 113/51 (71) Pulse Ox 94 95 99 O2 Delivery Room Air Room Air Room Air Room Air 07/09/19 07/09/19 07/09/19 07:00 08:00 08:56 Temp 96.7 96.7 Pulse 61 60 Resp 18 B/P (MAP) 133/67 (89) 133/67 Pulse Ox 99 O2 Delivery Room Air Room Air Intake and Output 07/08/19 07/08/19 07/09/19 14:59 22:59 06:59 Intake Total 120 ml 250 ml 2100 ml Output Total 25 ml 0 ml Balance 120 ml 225 ml 2100 ml Nutrition Consultation Dietary Evaluation: Recommendations by RD: Increase Calorie Intake, Protein supplementation Comments: Continue w/dysphagia I diet w/honey thick liquids per BLANK DRILLER, recommend Ensure pudding supplements BID Continue w/carlos-moses for wound healing Continue w/Nepro, increasing 10 ml q8 hrs to goal rate 40 ml/hr w/200 ml water flushes q4 hrs, discussed w/RN REC Marcell BID via PEG tube, discussed w/RN Expected Outcomes/Goals: New goal 06/30: TF infusion + PO intake to meet >75% est needs - met, goal ongoing Malnutrition Findings: Food and Nutrition Intake (Sev: <50% est energy req 5days Weight Status: Appropriate SAM OLMOS MD Jul 09, 2019 11:37
[2019-07-09] MEDS ORDERED: CYAN-25 PEG (11:54)
[2019-07-09] MEDS ORDERED: PANT40TA77 PEG (11:54)
[2019-07-09] MEDS ORDERED: FOLI1CAP10 PEG (11:54)
[2019-07-09] MEDS ORDERED: ATOR10TA60 PEG (11:54)
[2019-07-09] MEDS ORDERED: TRAM50TA PEG (11:54)
[2019-07-09] MEDS ORDERED: METO-239 PO (11:54)
[2019-07-09] MEDS ORDERED: INSU100I11 SQ (11:54)
[2019-07-09] MEDS ORDERED: ALLO100T PEG (11:54)
[2019-07-09] MEDS ORDERED: ACET650S PEG (11:54)
[2019-07-09] MEDS ORDERED: CLOP75TA PEG (11:54)
--- NOTE | 2019-07-09 12:00 | SNU/HH DC ---
DISCHARGE ORDERS DISCHARGE INFORMATION: DISCHARGE DATE: Jul 09, 2019 FINAL DIAGNOSIS Problemsleft BKA stump wound Medical Problems: (1) Altered mental status Status: Acute (2) Anemia in chronic illness Status: Chronic (3) CAD (coronary artery disease) Status: Chronic (4) Chronic a-fib Status: Chronic (5) DM2 (diabetes mellitus, type 2) Status: Chronic (6) ESRD (end stage renal disease) Status: Acute (7) HTN (hypertension) Status: Chronic (8) Metabolic encephalopathy Status: Acute (9) NSTEMI (non-ST elevated myocardial infarction) Status: Acute (10) Paroxysmal A-fib Status: Acute (11) Peripheral artery disease Status: Chronic (12) Severe protein-calorie malnutrition Status: Chronic (13) SSS (sick sinus syndrome) Status: Chronic (14) UTI (urinary tract infection) Status: Acute CONDITION ON DISCHARGE: Stable CODE STATUS: Code Status: Full POST DISCHARGE ORDERS: ACTIVITY ORDERS: Bedrest today WEIGHT BEARING STATUS: Non weight bearing DIET AFTER DISCHARGE: pureed honey thick liquid renal ada diet WOUND/INCISION CARE: Keep wound/cast CDI OTHER ORDERS: nepro 400cc/hr and water 150 cc every 6 hours FOLLOW-UP: PHYSICIAN FOLLOW-UP: dr. cain and hemodialysis and [facility] wound care ADDITIONAL FOLLOW-UP: [facility] Additional Instructions: wound vac to left BKA stump. continue same wound care orders at [facility] TREATMENT/EQUIPMENT ORDERS: ADAPTIVE EQUIPMENT NEEDED: None DISCHARGE MEDICATIONS: Home Meds Active Scripts Allopurinol (ALLOPURINOL) 100 Mg Tablet, 100 MG PEG DAILY for chronic gout, #30 TAB Prov:SAM OLMOS MD 07/09/19 Cyanocobalamin (Vitamin B-12) (VITAMIN B-12) 1,000 Mcg Tablet, 1000 MCG PEG DAILY for vitamina b12 deficiency, #30 TAB Prov:SAM OLMOS MD 07/09/19 Pantoprazole Sodium (PANTOPRAZOLE SODIUM ) 40 Mg Tablet., 40 MG PEG DAILYAC for gerd, #30 TAB.SR Prov:SAM OLMSO MD 07/09/19 Acetaminophen (ACETAMINOPHEN ORAL LIQUID ) 650 Mg/20.3 Ml Solution, 650 MG PEG PRN Q6HRS PRN for MILD PAIN / TEMP, #30 MISC Prov:SAM OLMOS MD 07/09/19 Tramadol Hcl (TRAMADOL HCL) 50 Mg Tablet, 25 MG PEG PRN Q6HRS PRN for severe pain, #30 TAB use judiciously as can cause sedationi Prov:SAM OLMOS MD 07/09/19 Metoprolol Succinate (METOPROLOL SUCCINATE ( XL )) 25 Mg Tab.er.24h, 12.5 MG PO DAILY for heart rhythm, #39 TAB.SR give all oral meds via peg Prov:SAM OLMOS MD 07/09/19 Atorvastatin Calcium (ATORVASTATIN CALCIUM) 10 Mg Tablet, 10 MG PEG QHS for hyperlipidemia for 30 Days, #30 TAB Prov:SAM OLMOS MD 07/09/19 Folic Acid/Vitamin B Comp W-C (RENAL CAPS SOFTGEL) 1 Mg Capsule, 1 MG PEG DAILY for supplement, #30 CAP Prov:SAM OLMOS MD 07/09/19 Insulin Lispro (HUMALOG) 100 Unit/1 Ml Insuln.pen, 100 UNIT SQ Q6HRS for dm, #5 SYR 150-199=1 unit 200-299=2 units 300-399=4 units 100-499=6 units Prov:SAM OLMOS MD 07/09/19 Clopidogrel Bisulfate (CLOPIDOGREL) 75 Mg Tablet, 1 TAB PEG DAILY for dvt, #90 TAB 1 Refill Prov:SAM OLMOS MD 07/09/19 Reported Medications Sennosides (SENNA) 8.6 Mg Tablet, 8.6 MG PO PRN DAILY PRN for CONSTIPATION, TAB 2 tabs 03/09/19 Sevelamer Carbonate (RENVELA) 800 Mg Tablet, 800 MG PO TIDWMEALS for esrd, TAB 03/09/19 Discontinued Reported Medications Omeprazole (OMEPRAZOLE) 20 Mg Tablet.dr, 1 TAB PO DAILY for reflux, #90 TAB 1 Refill 04/15/19 Cholecalciferol (Vitamin D3) (VITAMIN D3) 1,000 Unit Tablet, 1 TAB PO DAILY for supplement, #30 TAB 5 Refills 03/09/19 Cyanocobalamin (Vitamin B-12) (VITAMIN B-12) 1,000 Mcg Tablet, 1 TAB PO DAILY for supplement, #30 TAB 2 Refills 03/09/19 Metoclopramide Hcl (REGLAN) 10 Mg Tablet, 5 MG PO TID for nausea, #120 TAB 0 Refills 03/09/19 Lactobacillus Acidophilus (PROBIOTIC) 1 Each Capsule, 1 EACH PO BID for supplement, CAP 03/09/19 Magnesium Hydroxide (MILK OF MAGNESIA) 400 Mg/5 Ml Oral.susp, 400 MG PO PRN DAILY PRN for CONSTIPATION, MISC 03/09/19 Atorvastatin Calcium (LIPITOR) 40 Mg Tablet, 1 TAB PO QHS for hyperlipidemia, #90 TAB 1 Refill 03/09/19 Ipratropium/Albuterol Sulfate (DUONEB 0.5-3(2.5) MG/3 ML) 3 Ml Ampul.neb, 3 ML NEB PRN Q4HRS PRN for WHEEZING, EACH 01/26/19 Ammonium Lactate (Lac-Hydrin Five) 226 Gm Lotion, 226 GM TP BID for itching, MISC 01/26/19 Allopurinol (ALLOPURINOL) 100 Mg Tablet, 1 TAB PO DAILY for gout, #90 TAB 3 Refills 10/09/18 Acetaminophen (TYLENOL) 325 Mg Tablet, 1 TAB PO PRN Q4HRS for pain/temp, #30 TAB 10/09/18 Aspirin (ASPIRIN) 81 Mg Tab.chew, 81 MG PO DAILY for prophylaxis, TAB.CHEW 10/09/18 Discontinued Scripts Hydrocodone/Apap 5-325 (NORCO 5-325 TABLET) 1 Each Tablet, 0.5 TAB PO Q4HRS for severe pain, #30 TAB Prov:SAM OLMOS MD 05/07/19 Linezolid (ZYVOX) 600 Mg Tablet, 600 MG PO BID for wound rx for 4 Days, #8 TAB Prov:SAM OLMOS MD 05/07/19 Amoxicillin/Potassium Clav (AMOX TR-K CLV 500-125 MG TAB) 1 Each Tablet, 1 TAB PO DAILY for wound rx for 4 Days, #4 TAB Prov:SAM OLMOS MD 05/07/19 Tramadol Hcl (TRAMADOL HCL) 50 Mg Tablet, 50 MG PO PRN Q6HRS PRN for MODERATE PAIN, #30 TAB Prov:SAM OLMOS MD 03/15/19 Ondansetron (ONDANSETRON ODT) 4 Mg Tab.rapdis, 4 MG PO Q6HRS PRN for NAUSEA/VOMITING, #30 TAB Prov:SAM OLMOS MD 01/29/19 Insulin Lispro (HUMALOG) 100 Unit/1 Ml Insuln.pen, 0 UNITS SQ TIDWMEALS for diabetes for 30 Days, EACH BG 150-199= 1 units 200-299= 2 units 300-399= 4 units 400-499= 6 units ac tid sliding scale Prov:SAM OLMOS MD 09/26/18 SAM OLMOS MD Jul 09, 2019 12:00
--- NOTE | 2019-07-09 12:07 | PDOC ---
Provider Note Provider Note discharge summary dictated # [id number] SAM OLMOS MD Jul 09, 2019 12:07
--- NOTE | 2019-07-09 13:27 | PDOC ---
Infectious Disease Note Subjective Subjective feeling good ROS ROS no n/v/d/ Vital Sign Vital Signs Vital Signs Date Time Temp Pulse Resp B/P (MAP) Pulse Ox O2 Delivery O2 Flow Rate FiO2 07/09/19 11:00 97.6 60 18 121/53 (75) 98 Room Air 97.6 Physical Exam PHYSICAL EXAM GENERAL: Resting quietly LUNGS: Clear bilaterally. HEART: S1, S2. regular ABDOMEN: Soft : Finley EXTREMITIES: Right below knee amputation. Left lower extremity amputation stump has a wound vac in place. left stump wound seen, healthy red granulation, no bone exposure SKIN: warm to touch NURSE SPECIAL: Arouses to voice RIJ (07/02) clean Labs Lab Laboratory Tests Test 07/08/19 17:11 07/08/19 21:33 07/09/19 08:11 07/09/19 12:06 Glucose (Fingerstick) 104 mg/dL (70-99) 108 mg/dL (70-99) 141 mg/dL (70-99) 208 mg/dL (70-99) Micro Microbiology 06/23/19 Urine Culture - Final, Complete 06/23/19 Urine Culture Result 1 (TEREZA) - Final, Complete 06/22/19 Blood Culture - Final, Complete NO GROWTH AFTER 5 DAYS Objective Assessment Urinary tract infection. No leukocyte esterase or nitrite done. Not done again on repeat UA 06/24. urine had pus like appearance when Finley placement was attempted, yeast on uc likely colonization Finley now in place - cults neg Altered mental status, likely multifactorial. 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 Low-grade fevers - better Leukocytosis - improved - C-diff neg Anemia of chronic disease. Severe protein-calorie malnutrition per speech no aspiration but slow to swallow and not able to maintain adequate po Chronic atrial fibrillation. High troponin with working diagnosis of non-STEMI. Chronic sacral wound, superficial. Yeast in groin. treated Dysphagia on ngt h/o Enterobacter aerogenes, VRE, MSSA wound infection Plan Plan of Care cont local wound care off antibiotics ok to d/c KELI MOLINA MD Jul 09, 2019 13:26
--- NOTE | 2019-07-09 13:54 | PDOC ---
Subjective: Subjective: Says he's okay. Objective: Objective: No GI concerns per nurse - discharging today. Vital Signs: Vital Signs Date Time Temp Pulse Resp B/P (MAP) Pulse Ox O2 Delivery O2 Flow Rate FiO2 07/09/19 11:00 97.6 60 18 121/53 (75) 98 Room Air 97.6 Labs: Laboratory Tests Test 07/08/19 17:11 07/08/19 21:33 07/09/19 08:11 07/09/19 12:06 Glucose (Fingerstick) 104 mg/dL 108 mg/dL 141 mg/dL 208 mg/dL PE: GEN: NAD - talking to a visitor LUNGS: room air NEURO/PSYCH: awake/alert A/P: Dysphagia/need for non-oral nutrition - s/p PEG -- DC per primary. EULOGIO SOLORIO Jul 09, 2019 13:54
--- NOTE | 2019-07-09 18:43 | DS ---
DATE OF DISCHARGE: 07/09/2019 CONSULTANTS: Include Dr. Ceja; Dr. Mc, urologist; Dr. Joselito Lindsay; Dr. Berrios, assurance associate; and wound care team, Dr. Murguia. PROCEDURES: 1. Debridement of a left below-knee amputation stump wound. 2. Application of a wound VAC to the left below-knee amputation stump wound. 3. Hemodialysis. 4. PEG for oropharyngeal dysphagia. FINAL DIAGNOSES: 1. Left below-knee amputation stump wound. Wound VAC applied. 2. History of bilateral below-knee amputations. 3. Peripheral arterial disease. 4. Metabolic encephalopathy. 5. Diabetes mellitus type 2. 6. Peripheral arterial disease. 7. End-stage renal disease, on hemodialysis. 8. Paroxysmal atrial fibrillation, but not a Coumadin candidate due to previous history of retroperitoneal bleed and fall risk. 9. Severe protein-calorie malnutrition. 10. Anemia of chronic disease. 11. Non-ST elevation myocardial infarction. 12. Oropharyngeal dysphagia, on honey thick liquid pureed diet and a PEG was placed. HOSPITAL COURSE: The patient is a 78-year-old -[place] male resident of a long-term, on hemodialysis Mondays, Wednesdays, Fridays with a history of diabetes mellitus type 2, peripheral arterial disease, chronic atrial fibrillation, who has bilateral total knee amputations with a history of a left below-knee amputation 04/2019 for left lower extremity wound and also previous history of right below-knee amputation. The patient had this nonhealing wound. He was sent to the [facility] Room because of altered mental status and turbid urine. He was started on IV antibiotics, seen by multiple consultants including Infectious Disease doctor. Blood and urine cultures were ordered. CAT scan of the head was negative. CAT scan of the pelvis was done and there was no evidence of acute infection there. ____ a left below-knee amputation wound, had it debrided. Seen by Dr. Ceja. Received IV vancomycin, Zosyn, and completed his course of antibiotics. The wound was superficially debrided by Dr. Ceja. He continued with his hemodialysis. He had a metabolic encephalopathy and was seen by Dr. Thornton which improved. He had oropharyngeal dysphagia and was seen by the speech therapist, on a pureed honey thick liquid diet and for not eating well, so a PEG was placed by Dr. Mc. He was started on Nepro and water flushes, which he tolerated well. He will be dismissed to the long-term on Tylenol 650 mg every 6 hours p.r.n., allopurinol 100 mg every day, atorvastatin 10 mg at bedtime, vitamin B12 1000 mcg every day, metoprolol succinate 25 mg every day, Protonix 40 mg every day, tramadol 25 mg every 6 hours p.r.n., 30 tablets, no refill, Senokot 2 p.r.n. and he is on Protonix 75 mg every day, Nephro-Judah 1 every day, Humalog insulin sliding scale as written, low dose every 6 hours and his medicines will be given through the PEG instead of orally. He completed his course of antibiotics. SAM OLMOS MD DR: JULIO/lise JOB#: [id number] / [id number]
== END 2019-07-09 17:15 | DRG 70 ==
LOC: ER 10:04 → 6 SOUTH 13:00 → 2 SOUTH 06-23 10:30
PROVIDERS: ADMIT Internal Medicine; ATTEND Internal Medicine
PROC: 5A1D70Z Performance of Urinary Filtration, Intermittent, Less than 6 Hours Per Day (ICD-10-PCS; 2019-06-22)
PROC: 5A1D70Z Performance of Urinary Filtration, Intermittent, Less than 6 Hours Per Day (ICD-10-PCS; 2019-06-24)
PROC: 5A1D70Z Performance of Urinary Filtration, Intermittent, Less than 6 Hours Per Day (ICD-10-PCS; 2019-06-26)
PROC: 5A1D70Z Performance of Urinary Filtration, Intermittent, Less than 6 Hours Per Day (ICD-10-PCS; 2019-06-29)
PROC: 5A1D70Z Performance of Urinary Filtration, Intermittent, Less than 6 Hours Per Day (ICD-10-PCS; 2019-07-01)
PROC: 05WYX3Z Revision of Infusion Device in Upper Vein, External Approach (ICD-10-PCS; 2019-07-02)
PROC: 5A1D70Z Performance of Urinary Filtration, Intermittent, Less than 6 Hours Per Day (ICD-10-PCS; 2019-07-03)
PROC: 3E0G76Z Introduction of Nutritional Substance into Upper GI, Via Natural or Artificial Opening (ICD-10-PCS; 2019-07-06)
PROC: 5A1D70Z Performance of Urinary Filtration, Intermittent, Less than 6 Hours Per Day (ICD-10-PCS; 2019-07-06)
PROC: 0DH63UZ Insertion of Feeding Device into Stomach, Percutaneous Approach (ICD-10-PCS; principal; 2019-07-06 16:00)
PROC: 5A1D70Z Performance of Urinary Filtration, Intermittent, Less than 6 Hours Per Day (ICD-10-PCS; 2019-07-08)
PROC: 0HBLXZZ Excision of Left Lower Leg Skin, External Approach (ICD-10-PCS; 2019-07-09)
DX: G93.41 Metabolic encephalopathy (principal); I21.4 Non-ST elevation (NSTEMI) myocardial infarction; N18.6 End stage renal disease; E43 Unspecified severe protein-calorie malnutrition; J98.11 Atelectasis; I69.354 Hemiplegia and hemiparesis following cerebral infarction affecting left non-dominant side; I50.42 Chronic combined systolic (congestive) and diastolic (congestive) heart failure; I13.2 Hypertensive heart and chronic kidney disease with heart failure and with stage 5 chronic kidney disease, or end stage renal disease; I47.2 Ventricular tachycardia; T82.524A Displacement of infusion catheter, initial encounter; Z51.5 Encounter for palliative care; Y83.8 Other surgical procedures as the cause of abnormal reaction of the patient, or of later complication, without mention of misadventure at the time of the procedure; T87.89 Other complications of amputation stump; I48.0 Paroxysmal atrial fibrillation; Y83.5 Amputation of limb(s) as the cause of abnormal reaction of the patient, or of later complication, without mention of misadventure at the time of the procedure; E11.51 Type 2 diabetes mellitus with diabetic peripheral angiopathy without gangrene; I25.10 Atherosclerotic heart disease of native coronary artery without angina pectoris; G47.33 Obstructive sleep apnea (adult) (pediatric); F03.90 Unspecified dementia, unspecified severity, without behavioral disturbance, psychotic disturbance, mood disturbance, and anxiety; K63.5 Polyp of colon; B37.2 Candidiasis of skin and nail; E21.3 Hyperparathyroidism, unspecified; F32.9 Major depressive disorder, single episode, unspecified; F41.9 Anxiety disorder, unspecified; K59.00 Constipation, unspecified; M19.90 Unspecified osteoarthritis, unspecified site; R32 Unspecified urinary incontinence; E11.22 Type 2 diabetes mellitus with diabetic chronic kidney disease; E11.42 Type 2 diabetes mellitus with diabetic polyneuropathy; K80.20 Calculus of gallbladder without cholecystitis without obstruction; E78.5 Hyperlipidemia, unspecified; R13.12 Dysphagia, oropharyngeal phase; I49.5 Sick sinus syndrome; D63.8 Anemia in other chronic diseases classified elsewhere; E66.01 Morbid (severe) obesity due to excess calories; N30.81 Other cystitis with hematuria; K57.30 Diverticulosis of large intestine without perforation or abscess without bleeding; K21.0 Gastro-esophageal reflux disease with esophagitis; Z99.2 Dependence on renal dialysis; Z89.511 Acquired absence of right leg below knee; Z89.512 Acquired absence of left leg below knee; Z68.30 Body mass index [BMI] 30.0-30.9, adult; Z91.81 History of falling; Z79.899 Other long term (current) drug therapy; Z95.5 Presence of coronary angioplasty implant and graft; Z87.891 Personal history of nicotine dependence; Z87.442 Personal history of urinary calculi; Z86.010 Personal history of colon polyps; Z82.49 Family history of ischemic heart disease and other diseases of the circulatory system; Y92.89 Other specified places as the place of occurrence of the external cause
CPT/HCPCS: 36415; 43246; 70450; 70551; 71045; 73590; 74018; 74176; 76000; 78452; 80048; 80053; 80061; 80202; 81001; 82962; 83605; 83735; 84484; 85025; 85027; 85610; 85651; 86140; 87040; 87086; 87493; 93005; 93017; 93306; A9500; C1769; J0882; J1644; J1650; J1815; J1885; J2248; J2543; J2704; J2785; J3370; J3490; J7030; J7040; J7042; 92526; 92610; 99285-25; G0378

== ENCOUNTER 2019-08-01 00:48 | Emergency (ER) | payer BC ==
[~2019-08-01] VITALS: Ht 182.9 cm; Wt 99.8 kg
[~2019-08-01 00:48] MED LIST changes: +ACET650S PEG; +ALLO100T PEG; +ATOR10TA60 PEG; +CLOP75TA PEG; +CYAN-25 PEG; +FOLI1CAP10 PEG; +LINE600T12 PO; -LINE600T37 PO; +METO-239 PO; +OMEP40CA45 PO; -OMEP40CA5 PO; +PANT40TA77 PEG; +TRAM50TA PEG
[2019-08-01 01:05] VITALS: BP 100/55
--- NOTE | 2019-08-01 01:07 | PHYS DOC ---
Past Medical History Past Medical History: A-Fib, Anemia, CVA, Diabetes-Type II, GERD, Hypertension, Renal Failure, Seizure Additional Past Medical Histor: ESRD, APNEA, Past Surgical History: Pacemaker Additional Past Surgical Histo: bilateral BKA, AV fistula Alcohol Use: None Drug Use: None Adult General Chief Complaint Chief Complaint: GTUBE REPLACEMENT/MALFUNCTION HPI HPI 78-year-old male presents to the emergency department with G-tube malfunction. Reported patient's G-tube was clogged, he was brought to the emergency department for further evaluation. He denies any acute complaint at this time. Resting comfortably. No abdominal pain, chest pain, shortness breath, nausea, vomiting. All other ROS negative unless documented in HPI Review of Systems Review of Systems See Above Allergies Allergies Allergies Coded Allergies Type Severity Reaction Last Updated Verified I S O L A T I O N *CONTACT* Allergy Unknown 07/06/19 Yes No Known Medication Allergies Allergy Unknown 07/06/19 Yes Physical Exam Physical Exam See Above Constitutional: Well developed, well nourished, no acute distress, non-toxic appearance. [] HENT: Normocephalic, atraumatic, bilateral external ears normal, oropharynx moist, no oral exudates, nose normal. [] Cardiovascular:Heart rate regular rhythm, no murmur [] Lungs & Thorax: Bilateral breath sounds clear to auscultation [] Abdomen: Bowel sounds normal, soft, no tenderness, no masses, no pulsatile masses. Gtube in place[] Skin: Warm, dry, no erythema, no rash. [] Extremities: bilateral lower ext amputation [] Neurologic: Alert and oriented X 3, no focal deficits noted. [] Psychologic: Affect normal, judgement normal, mood normal. [] EKG EKG [] Radiology/Procedures Radiology/Procedures [] Course & Med Decision Making Course & Med Decision Making Pertinent Labs and Imaging studies reviewed. (See chart for details) []78-year-old male presents to the emergency department with G-tube malfunction. Reported patient's G-tube was clogged, he was brought to the emergency department for further evaluation. He denies any acute complaint at this time. Resting comfortably. No abdominal pain, chest pain, shortness breath, nausea, vomiting. Gtube with powder that is clogged in tube. Coke used to breakup powder with success. Tube flushed with saline - patent at this time Plan for dc to [place] Ok to use gtube without concern Elisabeth Disclaimer Dragon Disclaimer This electronic medical record was generated, in whole or in part, using a voice recognition dictation system. Departure Departure Impression: Primary Impression: Gastrostomy tube dysfunction Disposition: 03 TRANSFER SNF Condition: STABLE Referrals: SAM OLMOS MD (PCP) Patient Instructions: Gastric Tube Replacement Additional Instructions: Recommend follow up with PCP 3 - 5 days Return to the ER with worsening symptoms, intractable pain, fever, altered mental status Tylenol/Motrin as needed for pain Gtube functioning at this time, flushed adequately DANELLE SMART MD Aug 01, 2019 01:07
== END 2019-08-01 02:20 | disposition home or self-care (01) ==
LOC: ER 01:22
DX: K94.23 Gastrostomy malfunction (principal); I48.91 Unspecified atrial fibrillation; K21.9 Gastro-esophageal reflux disease without esophagitis; I12.0 Hypertensive chronic kidney disease with stage 5 chronic kidney disease or end stage renal disease; E11.22 Type 2 diabetes mellitus with diabetic chronic kidney disease; N18.6 End stage renal disease; Z95.0 Presence of cardiac pacemaker; Z86.73 Personal history of transient ischemic attack (TIA), and cerebral infarction without residual deficits; Z91.041 Radiographic dye allergy status
CPT/HCPCS: 99284; 99285

== ENCOUNTER → 2019-09-07 | Outpatient (CLI) | payer BC ==
[~2019-09-07] MED LIST changes: +OMEP-229 PO; -OMEP20CA10 PO
== END | disposition home or self-care (01) ==
LOC: SPEC 12:23
PROVIDERS: ATTEND Internal Medicine
DX: I73.89 Other specified peripheral vascular diseases (principal); T81.89XA Other complications of procedures, not elsewhere classified, initial encounter; Z89.512 Acquired absence of left leg below knee
CPT/HCPCS: 87071; 87075; 87186

== ENCOUNTER → 2019-10-01 | Outpatient (CLI) | payer BC ==
[~2019-10-01] MED LIST changes: -OMEP-229 PO; +OMEP20CA16 PO
== END | disposition home or self-care (01) ==
LOC: SPEC 05:26
PROVIDERS: ATTEND Internal Medicine
DX: K94.22 Gastrostomy infection (principal)
CPT/HCPCS: 87071; 87075; 87186

== ENCOUNTER → 2019-10-22 | Outpatient (CLI) | payer BC ==
[2019-10-19 15:30] VITALS: BP 99/43
[2019-10-22 06:16] LABS: BASO # 0.1 x10^3/uL (0.0-0.2); BASO % 1 % (0-3); EOS # 0.4 x10^3/uL (0.0-0.7); EOS % 8 % (0-3); HEMOGLOBIN 12.8 g/dL (13.0-17.5); LYMPH # 1.6 x10^3/uL (1.0-4.8); LYMPH % 27 % (24-48); MEAN CORPUSCULAR HEMOGLOBIN 30 pg (25-35); MEAN CORPUSCULAR HGB CONC 33 g/dL (31-37); MEAN CORPUSCULAR VOLUME 90 fL (79-100); MONO # 0.8 x10^3/uL (0.0-1.1); MONO % 14 % (0-9); NEUT # 2.9 x10^3/uL (1.8-7.7); NEUT % 51 % (31-73); PLATELET COUNT 246 x10^3/uL (140-400); RED BLOOD COUNT 4.32 x10^6/uL (4.30-5.70); RED CELL DISTRIBUTION WIDTH 19.6 % (11.5-14.5); WHITE BLOOD COUNT 5.8 x10^3/uL (4.0-11.0)
== END | disposition home or self-care (01) ==
LOC: SPEC 01:52
PROVIDERS: ATTEND Internal Medicine
DX: N18.6 End stage renal disease (principal)
CPT/HCPCS: 36415; 85025; 87070; 87186

== ENCOUNTER 2019-12-14 11:03 | Emergency (ER) | payer BC ==
[~2019-12-14] VITALS: Ht 175.3 cm; Wt 90.9 kg
[~2019-12-14 11:03] MED LIST changes: -MERO500V15 IV; +MERO500V24 IV
--- NOTE | 2019-12-14 11:34 | PHYS DOC ---
Past Medical History Past Medical History: Diabetes-Type II, Renal Failure Additional Past Medical Histor: ESRD, APNEA, Past Surgical History: Other Additional Past Surgical Histo: peg tube, bilateral BKA's Smoking Status: Never Smoker Alcohol Use: None Drug Use: None Adult General Chief Complaint Chief Complaint: ALTERED MENTAL STATUS HPI HPI Patient is a 79-year-old male who presents to the emergency department for evaluation, from [facility]. According to EMS report, the patient had an oxygen saturation in the 60s on their finger pulse oximeter, although EMS suspects that the machine was not operating correctly as the patient had an oxygen saturation in the upper 90s when EMS assessed the patient. The patient admits to a cough for the past 2 weeks, but denies any shortness of breath. He states he feels fine and has no acute complaints at this time. EMS reported that the dialysis center reported questionable episode of confusion, although the patient is not confused at this time. He does appear chronically all, but has no complaints. He denies any chest pain, current shortness of breath, headache, focal numbness, or focal weakness. He does have chronic generalized weakness. He has had bilateral BKA's, and is nonambulatory at baseline. There are no alleviating or exacerbating factors to his symptoms. Review of Systems Review of Systems Constitutional: Denies fever or chills [] Eyes: Denies change in visual acuity, redness, or eye pain [] HENT: Denies nasal congestion or sore throat [] Respiratory: Denies productive cough or shortness of breath [] Cardiovascular: The patient denies any shortness of breath, chest pain, palpitations, or orthopnea [] GI: Denies abdominal pain, nausea, vomiting, bloody stools or diarrhea [] : Denies dysuria or hematuria [] Musculoskeletal: Denies back pain or joint pain [] Integument: Denies rash or skin lesions [] Neurologic: Denies headache, focal weakness or sensory changes [] Endocrine: Denies polyuria or polydipsia [] All other systems were reviewed and found to be within normal limits, except as documented in this note. Allergies Allergies Allergies Coded Allergies Type Severity Reaction Last Updated Verified I S O L A T I O N *CONTACT* Allergy Unknown 10/19/19 Yes No Known Medication Allergies Allergy Unknown 10/19/19 Yes Physical Exam Physical Exam PHYSICAL EXAM: CONSTITUTIONAL: Well developed, well nourished HEAD: normocephalic, atraumatic EENT: PERRL, EOMI. Conjunctivae normal color, sclerae non-icteric; moist mucous membranes. NECK: Supple, non-tender; no meningismus. LUNGS: There are mildly diminished breath sounds, but the lungs are CTA, breathing even and unlabored. HEART: Regular rate and rhythm, no murmur CHEST: No deformity; non-tender ABDOMEN: The abdomen is soft, and non-tender, no masses or bruits. EXTREM: Normal ROM; no deformity, no calf tenderness. Normal pulses palpable in all extremities. There is no peripheral edema. There have been bilateral BKA's. There is an AV fistula with a palpable thrill in the right upper extremity SKIN: No rash; no diaphoresis NEURO: Alert; normal speech and cognition; CN's grossly intact; strength grossly intact without focal deficit. BACK: No CVA TTP. Current Patient Data Vital Signs Vital Signs Date Time Temp Pulse Resp B/P (MAP) Pulse Ox O2 Delivery O2 Flow Rate FiO2 12/14/19 12:38 66 18 99 12/14/19 11:03 99.1 106/42 (63) Room Air 99.1 Lab Values Laboratory Tests Test 12/14/19 11:59 12/14/19 12:06 12/14/19 13:04 12/14/19 13:20 Influenza Type A Antigen Negative (NEGATIVE) Influenza Type B Antigen Negative (NEGATIVE) White Blood Count 9.0 x10^3/uL (4.0-11.0) Red Blood Count 3.55 x10^6/uL (4.30-5.70) L Hemoglobin 11.2 g/dL (13.0-17.5) L Hematocrit 33.7 % (39.0-53.0) L Mean Corpuscular Volume 95 fL (79-100) Mean Corpuscular Hemoglobin 32 pg (25-35) Mean Corpuscular Hemoglobin Concent 33 g/dL (31-37) Red Cell Distribution Width 18.0 % (11.5-14.5) H Platelet Count 284 x10^3/uL (140-400) Neutrophils (%) (Auto) 68 % (31-73) Lymphocytes (%) (Auto) 17 % (24-48) L Monocytes (%) (Auto) 11 % (0-9) H Eosinophils (%) (Auto) 3 % (0-3) Basophils (%) (Auto) 1 % (0-3) Neutrophils # (Auto) 6.1 x10^3/uL (1.8-7.7) Lymphocytes # (Auto) 1.5 x10^3/uL (1.0-4.8) Monocytes # (Auto) 1.0 x10^3/uL (0.0-1.1) Eosinophils # (Auto) 0.2 x10^3/uL (0.0-0.7) Basophils # (Auto) 0.1 x10^3/uL (0.0-0.2) Sodium Level 142 mmol/L (136-145) Potassium Level 4.1 mmol/L (3.5-5.1) Chloride Level 97 mmol/L (98-107) L Carbon Dioxide Level 33 mmol/L (21-32) H Anion Gap 12 (6-14) Blood Urea Nitrogen 94 mg/dL (8-26) H Creatinine 6.6 mg/dL (0.7-1.3) H Estimated GFR (Cockcroft-Gault) 9.9 BUN/Creatinine Ratio 14 (6-20) Glucose Level 151 mg/dL (70-99) H Calcium Level 9.2 mg/dL (8.5-10.1) Total Bilirubin 0.7 mg/dL (0.2-1.0) Aspartate Amino Transferase (AST) 37 U/L (15-37) Alanine Aminotransferase (ALT) 49 U/L (16-63) Alkaline Phosphatase 184 U/L (46-116) H Troponin I Quantitative 0.374 ng/mL (0.000-0.055) 0.357 ng/mL (0.000-0.055) Total Protein 6.9 g/dL (6.4-8.2) Albumin 2.6 g/dL (3.4-5.0) L Albumin/Globulin Ratio 0.6 (1.0-1.7) L Glucose (Fingerstick) 153 mg/dL (70-99) H Laboratory Tests 12/14/19 12:06 Laboratory Tests 12/14/19 12:06 EKG EKG []Normal sinus rhythm at a rate of 69 beats for minute, left axis deviation, left anterior fascicular block, lateral T wave inversion, without acute ischemic ST/T changes, or significant changes compared to patient's prior EKG. Radiology/Procedures Radiology/Procedures PROCEDURE: PORTABLE CHEST 1V PORTABLE CHEST 1V Clinical indications: Cough. COMPARISON: July 02, 2018. Findings: No acute lung infiltrate or pleural effusion or pulmonary edema or lung mass or pneumothorax is seen. Heart size is mildly enlarged but stable. The pulmonary vasculature, mediastinum and both joceline are stable. Right subclavian vascular stent is again evident. Pacemaker is again evident. Impression: No acute radiographic abnormality is seen.[] Course & Med Decision Making Course & Med Decision Making Pertinent Labs and Imaging studies reviewed. (See chart for details) [] 2:25 PM: The patient's condition remains stable. I have spoken with his dialysis center, and they should be able to accommodate him this afternoon for his dialysis session. His vital signs including blood pressure, remained stable, his oxygen saturation is 100% on room air. I also discussed the case with the patient's PCP, Dr. Gonzáles, and the patient apparently lives at [facility]. The patient's troponin is chronically elevated, and there is no rise on serial troponins in the emergency department, indicating this is likely sequelae of chronic renal insufficiency. He is not having any acute cardiac complaints. Dragon Disclaimer Dragon Disclaimer This electronic medical record was generated, in whole or in part, using a voice recognition dictation system. Departure Departure Impression: Primary Impression: ESRD on dialysis Disposition: HOME, SELF-CARE Condition: STABLE Referrals: SAM GONZÁLES MD (PCP) PRANAV ESTRADA MD Dec 14, 2019 11:34
--- NOTE | 2019-12-14 12:03 | RAD ---
PORTABLE CHEST 1V Clinical indications: Cough. COMPARISON: July 02, 2018. Findings: No acute lung infiltrate or pleural effusion or pulmonary edema or lung mass or pneumothorax is seen. Heart size is mildly enlarged but stable. The pulmonary vasculature, mediastinum and both joceline are stable. Right subclavian vascular stent is again evident. Pacemaker is again evident. Impression: No acute radiographic abnormality is seen. Electronically signed by: Leno Kovacs MD (12/14/2019 12:00 PM) [facility]
--- NOTE | 2019-12-14 12:11 | EKG ---
[facility] [address] [place] [id number] Test Date: 2019-12-14 Test Time: 11:52:02 Pat Name: BARNEY GUZMAN Department: Room: Gender: M Division Order Technician: : 1940 Requested By: PRANAV ESTRADA Order Number: [id number] Reading MD: Measurements Intervals Lyons Rate: 68 P: AK: QRS: -65 QRSD: 114 T: 102 QT: 442 QTc: 475 Interpretive Statements ATRIAL FIBRILLATION ABNORMAL LEFT AXIS DEVIATION R-S TRANSITION ZONE IN V LEADS DISPLACED TO THE LEFT LEFT ANTERIOR FASCICULAR BLOCK LVH WITH REPOLARIZATION ABNORMALITY PROLONGED QT ABNORMAL ECG No previous ECG available for comparison
[2019-12-14 12:19] LABS: BASO # 0.1 x10^3/uL (0.0-0.2); BASO % 1 % (0-3); EOS # 0.2 x10^3/uL (0.0-0.7); EOS % 3 % (0-3); HEMATOCRIT 33.7 % (39.0-53.0); HEMOGLOBIN 11.2 g/dL (13.0-17.5); LYMPH # 1.5 x10^3/uL (1.0-4.8); LYMPH % 17 % (24-48); MEAN CORPUSCULAR HEMOGLOBIN 32 pg (25-35); MEAN CORPUSCULAR HGB CONC 33 g/dL (31-37); MEAN CORPUSCULAR VOLUME 95 fL (79-100); MONO % 11 % (0-9); NEUT # 6.1 x10^3/uL (1.8-7.7); NEUT % 68 % (31-73); PLATELET COUNT 284 x10^3/uL (140-400); RED BLOOD COUNT 3.55 x10^6/uL (4.30-5.70)
[2019-12-14 12:43] LABS: INFLUENZA A PATIENT NEGATIVE (NEGATIVE); INFLUENZA B PATIENT NEGATIVE (NEGATIVE)
[2019-12-14 12:46] LABS: CALCIUM 9.2 mg/dL (8.5-10.1); CREATININE 6.6 mg/dL (0.7-1.3); GFR 9.9; POTASSIUM 4.1 mmol/L (3.5-5.1)
[2019-12-14 12:50] LABS: ALBUMIN 2.6 g/dL (3.4-5.0); ALBUMIN/GLOBULIN RATIO 0.6 (1.0-1.7); TOTAL BILIRUBIN 0.7 mg/dL (0.2-1.0); TOTAL PROTEIN 6.9 g/dL (6.4-8.2)
[2019-12-14 14:38] VITALS: BP 119/56
== END 2019-12-14 14:55 | disposition home or self-care (01) ==
LOC: ER 11:03
DX: E11.22 Type 2 diabetes mellitus with diabetic chronic kidney disease (principal); N18.6 End stage renal disease; Z99.2 Dependence on renal dialysis; Z91.041 Radiographic dye allergy status
CPT/HCPCS: 36415; 71045; 80053; 82962; 84484; 85025; 87804; 93005; 99285-25

== ENCOUNTER 2020-03-08 14:04 | Emergency (ER) | payer BC ==
[~2020-03-08] VITALS: Ht 172.7 cm; Wt 55.0 kg
[~2020-03-08 14:04] MED LIST changes: -PREG25CA PO; +PREG25CA41 PO; -PREG50CA PO; +PREG50CA91 PO; +SENN-182 PO; -SENN-80 PO
[2020-03-08] MEDS ORDERED: IOHEXOL 300 MG/ML 100ML VIAL. IV ONE (14:45)
[2020-03-08] MEDS ORDERED: IOHEXOL 240 MG/ML 50ML VIAL. PO ONE (14:45)
[2020-03-08] MEDS ORDERED: CONTRAST GIVEN. MC PRN (14:45)
[2020-03-08 15:17] VITALS: BP 111/62
[2020-03-08 15:22] LABS: BASO # 0.1 x10^3/uL (0.0-0.2); BASO % 1 % (0-3); EOS # 0.5 x10^3/uL (0.0-0.7); EOS % 7 % (0-3); HEMATOCRIT 38.4 % (39.0-53.0); HEMOGLOBIN 12.9 g/dL (13.0-17.5); LYMPH # 1.7 x10^3/uL (1.0-4.8); LYMPH % 25 % (24-48); MEAN CORPUSCULAR HEMOGLOBIN 32 pg (25-35); MEAN CORPUSCULAR HGB CONC 34 g/dL (31-37); MEAN CORPUSCULAR VOLUME 95 fL (79-100); MONO # 0.6 x10^3/uL (0.0-1.1); MONO % 9 % (0-9); NEUT % 58 % (31-73); PLATELET COUNT 195 x10^3/uL (140-400); RED BLOOD COUNT 4.05 x10^6/uL (4.30-5.70); RED CELL DISTRIBUTION WIDTH 16.4 % (11.5-14.5); WHITE BLOOD COUNT 6.9 x10^3/uL (4.0-11.0)
[2020-03-08 15:56] LABS: CALCIUM 9.2 mg/dL (8.5-10.1); CREATININE 4.7 mg/dL (0.7-1.3); GFR 14.6; POTASSIUM 5.5 mmol/L (3.5-5.1)
[2020-03-08 16:01] LABS: ALBUMIN 2.9 g/dL (3.4-5.0); ALBUMIN/GLOBULIN RATIO 0.6 (1.0-1.7); TOTAL BILIRUBIN 0.4 mg/dL (0.2-1.0); TOTAL PROTEIN 7.5 g/dL (6.4-8.2)
--- NOTE | 2020-03-08 16:42 | RAD ---
PQRS Compliance Statement: One or more of the following individualized dose reduction techniques were utilized for this examination: 1. Automated exposure control 2. Adjustment of the mA and/or kV according to patient size 3. Use of iterative reconstruction technique CT ABD PELV W/ORAL IV CONTRAST Clinical Indication: Abdominal pain. Comparison: CT abdomen and pelvis without contrast the tumor 2018. Technique: Helical CT imaging of the abdomen and pelvis is performed after 75 cc of Omnipaque 300 IV contrast. Oral contrast also administered. Findings: There is mild scarring or atelectasis in the lung bases. There is respiratory motion artifact. Three-vessel coronary artery disease. Cardiac pacer wires. Cardiac size upper limits of normal. Cholelithiasis. The liver, spleen, and adrenal glands are normal. Atherosclerotic abdominal aorta and its branches. There is severe calcification of the SMA. The pancreas is atrophic. There is dilation of the pancreatic duct in the body and the tail. The pancreatic duct is not seen in the pancreas head. A mass at the point of transition is not identified but is not entirely excluded. The kidneys are atrophic. There is no hydronephrosis. No obvious abnormality of the stomach. There is no small bowel obstruction. The appendix is normal. There is moderate colon stool volume. There is moderate distention of the rectum with stool. No colon wall thickening is identified. There is no abdominal adenopathy or free fluid. The urinary bladder is normal. Prostate size normal. There is no pelvic free fluid. Vacuum disc phenomenon and endplate spurring of the lumbar spine. The sacroiliac joints are partially fused. IMPRESSION: 1. Moderate colon stool volume suggests constipation. The rectum is moderately distended with stool. There is no evidence of colitis. 2. The pancreatic duct in the body and tail of the pancreas is dilated. Intraductal papillary mucinous neoplasm is a primary consideration. Recommend outpatient pancreas protocol multiphase CT or MR abdomen. 3. Cholelithiasis. 4. There is severe atherosclerotic calcification of the abdominal aorta and its branches. Electronically signed by: Maurice Alanis MD (03/08/2020 4:39 PM) [id number]
[2020-03-08] MEDS ORDERED: SENN1TAB99 PO (16:59)
[2020-03-08] MEDS ORDERED: METH-38 PO (16:59)
--- NOTE | 2020-03-08 17:09 | PHYS DOC ---
Past Medical History Past Medical History: Diabetes-Type II, Renal Failure Additional Past Medical Histor: ESRD, APNEA, Past Surgical History: Other Additional Past Surgical Histo: peg tube, bilateral BKA's Smoking Status: Never Smoker Alcohol Use: None Drug Use: None General Adult EDM: Chief Complaint: ABDOMINAL PAIN HPI: HPI: Patient is a 79 year old male who presents with right flank pain. This started a week ago and has been intermittent since that time. He states that initially started when his nurse put a wedge underneath him. He denies any abdominal pain, nausea, vomiting, fever, diarrhea. He has had some constipation. He denies any other trauma. Is not had any chest pain or shortness of breath. Pain is worse if he gets up and moves around. He is tried Tylenol and muscle relaxers without relief. Review of Systems: Review of Systems: General: Denies fever, chills, sweats, fatigue Eyes: Denies drainage, blurred vision HENT: Denies rhinorrhea, sore throat Respiratory: Denies cough, shortness of breath, wheezing Cardiac: Denies edema, palpitations, chest pain GI: Denies abdominal pain, N/V MSK: Denies back pain, neck pain Skin: Denies rash, jaundice Neuro: Denies headache, dizziness Psychiatric: Denies SI/HI Heart Score: Risk Factors: Risk Factors: DM, Current or recent (<one month) smoker, HTN, HLP, family history of CAD, obesity. Risk Scores: Score 0 - 3: 2.5% MACE over next 6 weeks - Discharge Home Score 4 - 6: 20.3% MACE over next 6 weeks - Admit for Clinical Observation Score 7 - 10: 72.7% MACE over next 6 weeks - Early Invasive Strategies Current Medications: Current Medications Medications (Trade) Dose Ordered Sig/Mitzi Start Time Stop Time Status Last Admin Dose Admin Info (CONTRAST GIVEN -- Rx MONITORING) 1 each PRN DAILY PRN 03/08/20 14:45 03/10/20 14:44 Iohexol (Omnipaque 240 Mg/ml) 30 ml 1X ONCE 03/08/20 14:45 03/08/20 14:46 DC 03/08/20 14:45 30 ML Iohexol (Omnipaque 300 Mg/ml) 75 ml 1X ONCE 03/08/20 14:45 03/08/20 14:46 DC 03/08/20 14:45 75 ML Allergies: Allergies: Allergies Coded Allergies Type Severity Reaction Last Updated Verified I S O L A T I O N *CONTACT* Allergy Unknown 10/19/19 Yes No Known Medication Allergies Allergy Unknown 10/19/19 Yes Physical Exam: PE: Constitutional: Well developed, well nourished, Cooperative, NAD, non-toxic appearing HEENT: Normocephalic, atraumatic, oropharynx moist, EOMI, PERRL, no drainage from eyes, normal conjunctiva Neck: Supple, normal range of motion, no stridor Cardiovascular: RRR, 2+ radial pulses bilaterally, no edema Respiratory: CTA bilaterally, no respiratory distress, no wheezing/crackles Abdomen: Soft, nontender, nondistended, no masses Skin: Warm, dry, intact Extremities: No obvious deformities Neurologic: Alert and Oriented x3, motor and sensory function grossly normal, no focal deficits Psychologic: Normal affect, normal judgment, normal mood. No SI/HI Current Patient Data: Labs: Laboratory Tests Test 03/08/20 15:00 03/08/20 15:38 White Blood Count 6.9 x10^3/uL (4.0-11.0) Red Blood Count 4.05 x10^6/uL (4.30-5.70) L Hemoglobin 12.9 g/dL (13.0-17.5) L Hematocrit 38.4 % (39.0-53.0) L Mean Corpuscular Volume 95 fL (79-100) Mean Corpuscular Hemoglobin 32 pg (25-35) Mean Corpuscular Hemoglobin Concent 34 g/dL (31-37) Red Cell Distribution Width 16.4 % (11.5-14.5) H Platelet Count 195 x10^3/uL (140-400) Neutrophils (%) (Auto) 58 % (31-73) Lymphocytes (%) (Auto) 25 % (24-48) Monocytes (%) (Auto) 9 % (0-9) Eosinophils (%) (Auto) 7 % (0-3) H Basophils (%) (Auto) 1 % (0-3) Neutrophils # (Auto) 4.0 x10^3/uL (1.8-7.7) Lymphocytes # (Auto) 1.7 x10^3/uL (1.0-4.8) Monocytes # (Auto) 0.6 x10^3/uL (0.0-1.1) Eosinophils # (Auto) 0.5 x10^3/uL (0.0-0.7) Basophils # (Auto) 0.1 x10^3/uL (0.0-0.2) Sodium Level 130 mmol/L (136-145) L Potassium Level 5.5 mmol/L (3.5-5.1) H Chloride Level 91 mmol/L (98-107) L Carbon Dioxide Level 32 mmol/L (21-32) Anion Gap 7 (6-14) Blood Urea Nitrogen 106 mg/dL (8-26) H Creatinine 4.7 mg/dL (0.7-1.3) H Estimated GFR (Cockcroft-Gault) 14.6 BUN/Creatinine Ratio 23 (6-20) H Glucose Level 169 mg/dL (70-99) H Calcium Level 9.2 mg/dL (8.5-10.1) Total Bilirubin 0.4 mg/dL (0.2-1.0) Aspartate Amino Transferase (AST) 41 U/L (15-37) H Alanine Aminotransferase (ALT) 72 U/L (16-63) H Alkaline Phosphatase 263 U/L (46-116) H Total Protein 7.5 g/dL (6.4-8.2) Albumin 2.9 g/dL (3.4-5.0) L Albumin/Globulin Ratio 0.6 (1.0-1.7) L Lipase 284 U/L (73-393) Laboratory Tests 03/08/20 15:00 Laboratory Tests 03/08/20 15:38 Vital Signs: Vital Signs Date Time Temp Pulse Resp B/P (MAP) Pulse Ox O2 Delivery O2 Flow Rate FiO2 03/08/20 14:10 99.0 68 15 106/63 (77) 96 Room Air 99.0 EKG: EKG: [] Radiology/Procedures: Radiology/Procedures: [] Course & Med Decision Making: Course & Med Decision Making Pertinent Labs and Imaging studies reviewed. (See chart for details) Patient is 79-year-old male presents to the emergency room complaining of intermittent right flank pain. Patient is also had constipation. Basic labs and CT abdomen pelvis were ordered to rule out a aortic aneurysm, gallbladder disease, injury. CT is negative. This is likely muscular in nature. Patient's test results and vitals while in the ED were fully reviewed and discussed with the patient. Patient is stable and at this time does not need admission to the hospital. We have discussed strict return precautions and the importance of following up with their Primary Care Physician. Patient stated understanding and was given an opportunity to ask any questions. Dragon Disclaimer: Dragon Disclaimer: This electronic medical record was generated, in whole or in part, using a voice recognition dictation system. Departure Departure Impression: Primary Impression: Constipation Additional Impression: Muscle strain Patient Instructions: Muscle Strain, [id number], Constipation, Adult, [id number] Scripts Sennosides/Docusate Sodium (Senna-Docusate Sodium Tablet) 1 Each Tablet 1 TAB PO DAILY for 7 Days, #7 TAB 0 Refills Prov: CHRISTIN HARRELL MD 03/08/20 Methocarbamol (ROBAXIN-750) 750 Mg Tablet 1 TAB PO BID PRN for PAIN for 10 Days, #20 TAB 0 Refills Prov: CHRISTIN HARRELL MD 03/08/20 CHRISTIN HARRELL MD March 08, 2020 17:09
== END 2020-03-08 17:50 | disposition home or self-care (01) ==
LOC: ER 14:04
DX: S39.011A Strain of muscle, fascia and tendon of abdomen, initial encounter (principal); K59.00 Constipation, unspecified; E11.22 Type 2 diabetes mellitus with diabetic chronic kidney disease; N18.6 End stage renal disease; X58.XXXA Exposure to other specified factors, initial encounter; Y93.89 Activity, other specified; Y92.89 Other specified places as the place of occurrence of the external cause; Y99.8 Other external cause status
CPT/HCPCS: 36415; 74177; 80053; 83690; 85025; 99285; Q9966; Q9967

== ENCOUNTER → 2020-07-05 | Outpatient (CLI) | payer BC ==
[~2020-07-05] MED LIST changes: -ASPI-612 PO; +ASPI-886 PO; +METH-38 PO; -WARF-78 PO; +WARF5TAB2 PO
[2020-07-05 09:23] LABS: BASO # 0.1 x10^3/uL (0.0-0.2); BASO % 1 % (0-3); EOS # 0.5 x10^3/uL (0.0-0.7); EOS % 7 % (0-3); HEMATOCRIT 36.9 % (39.0-53.0); HEMOGLOBIN 12.2 g/dL (13.0-17.5); LYMPH # 1.3 x10^3/uL (1.0-4.8); LYMPH % 18 % (24-48); MEAN CORPUSCULAR HEMOGLOBIN 32 pg (25-35); MEAN CORPUSCULAR HGB CONC 33 g/dL (31-37); MEAN CORPUSCULAR VOLUME 97 fL (79-100); MONO # 0.6 x10^3/uL (0.0-1.1); MONO % 8 % (0-9); NEUT # 4.7 x10^3/uL (1.8-7.7); NEUT % 66 % (31-73); PLATELET COUNT 255 x10^3/uL (140-400); RED CELL DISTRIBUTION WIDTH 15.4 % (11.5-14.5); WHITE BLOOD COUNT 7.1 x10^3/uL (4.0-11.0)
[2020-07-05 09:35] LABS: ALBUMIN 2.8 g/dL (3.4-5.0); ALBUMIN/GLOBULIN RATIO 0.7 (1.0-1.7); CALCIUM 8.7 mg/dL (8.5-10.1); CREATININE 4.1 mg/dL (0.7-1.3); GFR 17.1; POTASSIUM 3.2 mmol/L (3.5-5.1); TOTAL BILIRUBIN 0.3 mg/dL (0.2-1.0); TOTAL PROTEIN 6.7 g/dL (6.4-8.2); URIC ACID 2.1 mg/dL (3.5-7.2)
[2020-07-05 09:36] LABS: CHOLESTEROL/HDL RATIO 3.7
[2020-07-06 00:07] LABS: HEMOGLOBIN A1C 5.9 % (4.8-5.6)
== END | disposition home or self-care (01) ==
LOC: SPEC 09:06
PROVIDERS: ATTEND Internal Medicine
DX: N18.6 End stage renal disease (principal); D63.1 Anemia in chronic kidney disease; I25.10 Atherosclerotic heart disease of native coronary artery without angina pectoris; M10.9 Gout, unspecified
CPT/HCPCS: 36415; 80053; 80061; 83036; 84550; 85025

== ENCOUNTER 2020-11-01 09:04 | Outpatient (CLI) | payer BC, OTHER ==
[2020-11-01] VITALS (11 sets, daily range): BP systolic 104–128; BP diastolic 57–76
[~2020-11-01] VITALS: Ht 175.3 cm; Wt 84.8 kg
[~2020-11-01 09:04] MED LIST changes: +AMLO-186 PO; +AMLO-187 PO; -AMLO10TA8 PO; -AMLO5TAB10 PO; -CLIN150C14 PO; +CLIN150C15 PO; +LISI10TA16 PO; -LISI10TA2 PO; -OMEP40CA45 PO; +OMEP40CA7 PO
[2020-11-01 09:37] LABS: BASO # 0.1 x10^3/uL (0.0-0.2); BASO % 1 % (0-3); EOS % 0 % (0-3); HEMATOCRIT 32.2 % (39.0-53.0); HEMOGLOBIN 10.7 g/dL (13.0-17.5); LYMPH # 0.6 x10^3/uL (1.0-4.8); LYMPH % 10 % (24-48); MEAN CORPUSCULAR HEMOGLOBIN 32 pg (25-35); MEAN CORPUSCULAR HGB CONC 33 g/dL (31-37); MEAN CORPUSCULAR VOLUME 96 fL (79-100); MONO # 0.1 x10^3/uL (0.0-1.1); MONO % 1 % (0-9); NEUT # 4.9 x10^3/uL (1.8-7.7); NEUT % 87 % (31-73); PLATELET COUNT 199 x10^3/uL (140-400); RED BLOOD COUNT 3.34 x10^6/uL (4.30-5.70); RED CELL DISTRIBUTION WIDTH 14.8 % (11.5-14.5); WHITE BLOOD COUNT 5.6 x10^3/uL (4.0-11.0)
[2020-11-01] MEDS ORDERED: PSYL3.4P PO (09:49)
[2020-11-01] MEDS ORDERED: CYCL5TAB PO (09:49)
[2020-11-01] MEDS ORDERED: FOLI1CAP10 PO (09:49)
[2020-11-01] MEDS ORDERED: LIDOCAINE WITH 8.4% SOD BICARB 3 ML DISP.SYRIN. ONE ×2 (10:14→11:04)
[2020-11-01] MEDS ORDERED: IODIXANOL 320 MG/ML 100 ML VIAL. ONE (10:15)
[2020-11-01] MEDS ORDERED: HEPARIN for IV BOLUS 10,000 UNIT/10 ML VIAL. ONE (10:17)
[2020-11-01] MEDS ORDERED: fentaNYL PF VIAL 100 MCG/2 ML VIAL ONE (10:17)
[2020-11-01] MEDS ORDERED: MIDAZOLAM HCL/PF 2 MG/2 ML VIAL. ONE (10:17)
[2020-11-01] MEDS ORDERED: MIDAZOLAM HCL/PF 2 MG/2 ML VIAL. IV ONE (11:15)
[2020-11-01] MEDS ORDERED: IODIXANOL 320 MG/ML 100 ML VIAL. IART ONE (11:15)
[2020-11-01] MEDS ORDERED: fentaNYL PF VIAL 100 MCG/2 ML VIAL IV ONE (11:15)
[2020-11-01] MEDS ORDERED: LIDOCAINE WITH 8.4% SOD BICARB 3 ML DISP.SYRIN. IJ ONE (11:15)
[2020-11-01] MEDS ORDERED: CONTRAST GIVEN. MC PRN (11:30)
[2020-11-01 11:43] LABS: PROTHROMBIN TIME PATIENT 18.8 SEC (11.7-14.0)
[2020-11-01 11:54] LABS: PARTIAL THROMBOPLASTIN TIME > 150 SEC (24-38)
[2020-11-01 12:54] LABS: % BANDS 4 % (0-9); % LYMPHS 17 % (24-48); % MONOS 5 % (0-10); % SEGS 74 % (35-66)
[2020-11-01 12:55] LABS: PLT ESTIMATE ADEQUATE (ADEQUATE)
--- NOTE | 2020-11-01 13:26 | RAD ---
Right upper extremity angiography 11/01/2020 INDICATION: Right hand wounds/ischemic ulcers. Discussion: Patient is a 79-year-old male with long-standing severe peripheral vascular disease resulting in bilateral [id number] amputations. He also has end-stage renal disease with a right upper extremity AV fistula. He has developed ulcerations on multiple right fingers and his right thumb. He describes right hand pain, which is aggravated by dialysis. He has diminished radial and ulnar pulses. His clinical history and exam findings are concerning for a steal phenomena secondary to this fistula, likely worsened by underlying severe small vessel peripheral vascular disease. The procedure was explained in its entirety to the patient or the patients designated quality assurance representative by a member of the treatment team, including a discussion of the risks, benefits and commonly accepted alternatives to the procedure, as well as the expected consequences of no therapy whatsoever. Discussion of the risks included, but was not limited to, those that are most frequent and those that are rare but possibly severe or life-threatening, as well as the possibility of unforeseen complications. All elements of maximal sterile barrier technique including the use of a cap, mask, sterile gown, sterile gloves, large sterile sheet, appropriate hand hygiene, and 2% chlorhexidine for cutaneous antisepsis (or acceptable alternative antiseptic per current guidelines) were followed for this procedure. The right common femoral artery was accessed using a combination of ultrasound and fluoroscopic guidance. Micropuncture technique was used. The right common femoral artery is densely calcified. Reference ultrasound images were saved the medical record. A 5 German sheath was placed. Catheter was advanced into the right brachiocephalic artery. Angiograms were obtained demonstrating the artery to be patent. The right brachiocephalic visualized right common carotid, and right subclavian arteries are patent. The right brachial artery is calcified but patent. There is a right brachiocephalic fistula which is widely patent. The anastomosis is patent. The catheter was positioned in the brachial artery. During brachial artery angiograms week minimal filling of the distal brachial artery, radial artery, and ulnar artery was seen. Angiography was then repeated with complete compression of the fistula resulting in significantly improved filling of the distal brachial artery and more distal arteries. The radial and interosseous arteries are heavily diseased with multifocal areas of narrowing. The ulnar artery is occluded proximally. Angiograms of the hand were obtained without compression, with essentially nonvisualization of arteries of the hand. Compression of the fistula was again performed and angiography repeated demonstrating significantly improved flow, although significant narrowings in the ulnar and interosseous artery are seen. The digital arteries are poorly visualized in part secondary to inflow disease but also due to patient's inability to hold and still during angiography. Digital arteries are visualized on the second third and fourth fingers. Digital arteries involving the fifth digit are poorly seen. Digital arteries involving the thumb or visualized but appear to be weekly filling. Angiography demonstrates a mid common femoral puncture site. The sheath was removed. Manual pressure was held to achieve hemostasis. No immediate complications were identified. Total fluoroscopy time: 8.8 min Dose area product: 73 Gycm2 The procedures performed under conscious sedation including continuous cardiopulmonary monitoring via dedicated sedation nurse. [id number] sedation time: 70 minutes Impression: 1. The right brachiocephalic, subclavian arteries are patent. The right brachial artery is densely calcified but patent. The anastomosis of the right brachiocephalic fistula is widely patent. There is decreased flow to the distal brachial artery, and more distal arteries which appears to be due to steal phenomena. Following compression of the fistula distal flow is significantly improved, though still compromised secondary to severe peripheral vascular disease including occlusion of the ulnar artery, multiple tandem stenoses involving the radial artery and interosseous artery. 2. Recommend vascular surgery consultation of distal revascularization options to improve overall flow to the right hand.
--- NOTE | 2020-11-01 15:19 | NUR ---
Pt A& Ox4. rt groin site -no bleeding or swelling. dressing D&I. VSS. tolerating liquids well. called report to Lelo ohara nurse at [facility]- gave report - to resume medications- no changes- copy of report sent w/him. Dr. Faust stated he would call pt's surgeon with todays findings. pt lifted w/lift into his w/c- taken out to transport van to return to [place].
[2020-12-02] MEDS ORDERED: GLYC113C TP (14:38)
== END 2020-11-01 15:24 ==
LOC: INTRAD 09:04
PROVIDERS: ATTEND Family Medicine
DX: I73.9 Peripheral vascular disease, unspecified (principal); I12.0 Hypertensive chronic kidney disease with stage 5 chronic kidney disease or end stage renal disease; N18.6 End stage renal disease; I25.10 Atherosclerotic heart disease of native coronary artery without angina pectoris; E78.00 Pure hypercholesterolemia, unspecified; K21.9 Gastro-esophageal reflux disease without esophagitis; I48.91 Unspecified atrial fibrillation; M19.90 Unspecified osteoarthritis, unspecified site; G47.30 Sleep apnea, unspecified; E66.9 Obesity, unspecified; E11.22 Type 2 diabetes mellitus with diabetic chronic kidney disease; M10.9 Gout, unspecified; F41.9 Anxiety disorder, unspecified; F32.9 Major depressive disorder, single episode, unspecified; N40.0 Benign prostatic hyperplasia without lower urinary tract symptoms; Z89.612 Acquired absence of left leg above knee; Z89.611 Acquired absence of right leg above knee; Z99.2 Dependence on renal dialysis; Z79.4 Long term (current) use of insulin; Z79.899 Other long term (current) drug therapy; Z98.890 Other specified postprocedural states; Z87.891 Personal history of nicotine dependence; Z88.8 Allergy status to other drugs, medicaments and biological substances; Z68.27 Body mass index [BMI] 27.0-27.9, adult
CPT/HCPCS: 36415; 75710; 76937; 85007; 85025; 85347; 85610; 85730; 99152; 99153; C1713; C1769; C1892; C1894; J1644; J2250; J3010; J3490; Q9967

== ENCOUNTER 2020-12-06 06:01 | Day surgery (SDC) | payer BC, OTHER ==
[~2020-12-06 06:01] MED LIST changes: +CYCL5TAB PO; +GLYC113C TP; +HEPARIN SODIUM 5,000 UNIT in IV NORMAL SALINE 500ML BAG 500 ML IRR ONE; +HYDROmorphone 2 MG/ML VIAL IVP PRN; +IV RINGERS,LACTATED 1000ML 1,000 ML IV SCH; +MORPHINE SULFATE 2 MG/ML VIAL. IVP PRN; +OMEP40CA45 PO; -OMEP40CA7 PO; +PROCHLORPERAZINE 10 MG/2 ML VIAL. IVP PRN; +PSYL3.4P PO; +fentaNYL PF VIAL 100 MCG/2 ML VIAL IVP PRN
[2020-12-06] MEDS ORDERED: INSULIN LISPRO 100 UNIT/ML 3ML VIAL for OP,RR ONLY. SQ PRN (06:45)
[2020-12-06] MEDS ORDERED: fentaNYL PF VIAL 100 MCG/2 ML VIAL ONE ×2 (06:52→09:32)
[2020-12-06] MEDS ORDERED: LIDOCAINE 2% PF 5 ML VIAL. ONE (06:52)
[2020-12-06] MEDS ORDERED: PROPOFOL 10 MG/ML (20ML) VIAL. IV ONE (06:52)
[2020-12-06 06:59] LABS: HEMATOCRIT 35.6 % (39.0-53.0); HEMOGLOBIN 11.5 g/dL (13.0-17.5); RED BLOOD COUNT 3.65 x10^6/uL (4.30-5.70); RED CELL DISTRIBUTION WIDTH 16.1 % (11.5-14.5); WHITE BLOOD COUNT 6.6 x10^3/uL (4.0-11.0)
[2020-12-06] MEDS ORDERED: SURGICEL HEMOSTAT 4X8 EACH. ONE (07:02)
[2020-12-06] MEDS ORDERED: LIDOCAINE 1% Multi-Dose 20 ML VIAL. ONE ×2 (07:02→07:03)
[2020-12-06 07:09] LABS: CALCIUM 8.5 mg/dL (8.5-10.1); CREATININE 4.3 mg/dL (0.7-1.3); GFR 16.2; POTASSIUM 4.2 mmol/L (3.5-5.1)
[2020-12-06] MEDS ORDERED: IV NORMAL SALINE 1000ML BAG 1,000 ML IV SCH (07:30)
[2020-12-06] MEDS ORDERED: ROCURONIUM 50 MG/5 ML VIAL. ONE (07:42)
[2020-12-06] MEDS ORDERED: NEOSTIGMINE METHYLSULFATE 5 MG/5 ML SYRINGE. ONE (08:42)
[2020-12-06] MEDS ORDERED: PHENYLEPHRINE in 0.9% NACL PF 1 MG/10 ML SYRINGE. IV ONE (08:42)
[2020-12-06] MEDS ORDERED: PHENYLEPHRINE 10 MG/ML VIAL. ONE (08:42)
[2020-12-06] MEDS ORDERED: SEVOFLURANE 61 TO 120 MINUTES. IH ONE (08:42)
[2020-12-06] MEDS ORDERED: GLYCOPYRROLATE 1 MG/5 ML VIAL. ONE (08:43)
--- NOTE | 2020-12-06 09:23 | PDOC ---
BRIEF OPERATIVE NOTE Date: Dec 06, 2020 Pre-Op Diagnosis ESRD with right arm Steal Post-Op Diagnosis Same Procedure Performed 1. Tunneled hemodialysis catheter placement 2. Right arm Arteriovenous fistula ligation Surgeon Jose Rafael Da Silva DO Wealth Management Consultant SLY Luis Anesthesia Type: General Blood Loss 20mL Specimens Obtained None Findings none specific Complications None Operative Note See dictated op note LINNEA MCCANN Dec 06, 2020 09:23
--- NOTE | 2020-12-06 09:24 | OP ---
DATE OF SURGERY: 12/06/2020 VASCULAR SURGERY OPERATIVE REPORT ATTENDING SURGEON: Jose Rafael Fernández DO COUNSELOR AID: SLY Luis PREOPERATIVE DIAGNOSIS: End-stage renal disease, on hemodialysis. POSTOPERATIVE DIAGNOSIS: End-stage renal disease, on hemodialysis. PROCEDURES: 1. Right upper extremity AV fistula ligation. 2. Placement of a left 23 cm tunneled dialysis catheter into the left internal jugular vein tunneled to the anterior chest wall. 3. Ultrasound-guided access of the left internal jugular vein. ANESTHESIA: General. SPECIMENS: None. ESTIMATED BLOOD LOSS: 20 mL. COMPLICATIONS: None. 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 The patient was evaluated by my partner, Dr. Tamayo, and was not found to be a candidate for revascularization of the right upper extremity and preservation of his fistula. We recommended ligation of the fistula and placement of a catheter. I met the patient on the day of the procedure and all risks, benefits, and alternatives of the procedure were discussed with him at length and all questions were answered to his satisfaction and he was agreeable to proceed. OPERATIVE PROCEDURE: The patient was brought to the operating suite and placed in supine position. After establishing appropriate anesthesia, the left neck and chest wall were prepped and draped in sterile fashion. Next, a timeout procedure was performed. It was confirmed that the patient did receive appropriate perioperative antibiotics and we had all the available instruments available within the room. Following this, using a sterile ultrasound probe, the left internal jugular vein was directly visualized. I had already evaluated the right side and found that the jugular vein at the base of the neck was thrombosed. This is the reason for choosing the left side. After visualizing the jugular vein on the left side, an 18-gauge access needle was used to access the left internal jugular vein under direct ultrasound guidance. Following this, a wire was inserted under fluoroscopy guidance into the superior vena cava. Following this, a small skin incision was made in the neck and then the soft tissue was dilated with serial dilators included in the kit. Next, a dilator and sheath was inserted over a wire using Seldinger technique. The patient also prior to manipulation of the neck had been placed in the Trendelenburg position. Following this, a counter incision on the chest wall below the clavicle was made and then our catheter was tunneled up to the level of the jugular access site and then our dilator and our wire were removed and our breakaway sheath was engaged and our catheter was inserted and the breakaway sheath was removed. Next, we confirmed the location of the catheter and ensured that there was no kinking of the catheter. I also aspirated and flushed the catheter without difficulty. Following this, the jugular access incision site was closed using 3-0 Vicryl suture in a deep dermal fashion followed by Dermabond. The catheter was secured to the chest wall using interrupted 3-0 nylon suture and then a final flush of heparin was performed. Sterile caps were placed and then sterile dressings were placed. At this point in time, the patient's right upper extremity was prepped and draped in sterile fashion. Following this, I made an incision overlying the proximal inflow portion of the patient's fistula and this was carried through the skin and subcutaneous tissue. I dissected down to the level of the fistula where this was circumferentially dissected and controlled with a vessel loop. Next, the fistula was clamped proximally and distally and then transected. Following this, the proximal and distal end of the fistula was oversewn using 5-0 Prolene suture in a running fashion. Clamps were removed with excellent hemostasis at the inflow and outflow site. Next, the wound was copiously irrigated with antibiotic-impregnated solution. After correct lap, sponge, needle and instrument count, the subcutaneous layer was closed using 3-0 Vicryl suture followed by 4-0 Vicryl for the skin followed by Dermabond. Sterile dressing was subsequently placed. The patient tolerated the procedure well and was transferred to the postanesthesia care unit in stable condition. JOSE RAFAEL FERNÁNDEZ DO DR: MARGE/lise JOB#: [id number] / [id number]
[2020-12-06] MEDS: fentaNYL PF VIAL 100 MCG/2 ML VIAL IVP PRN ×3 (09:38→10:52)
[2020-12-06] MEDS ORDERED: TRAM50TA PO (09:59)
[2020-12-06 10:45] VITALS: BP 98/50
== END 2020-12-06 11:40 ==
LOC: SURG 06:01
PROVIDERS: ATTEND Specialist
DX: I12.0 Hypertensive chronic kidney disease with stage 5 chronic kidney disease or end stage renal disease (principal); N18.6 End stage renal disease; E11.22 Type 2 diabetes mellitus with diabetic chronic kidney disease; I25.10 Atherosclerotic heart disease of native coronary artery without angina pectoris; E78.00 Pure hypercholesterolemia, unspecified; E66.9 Obesity, unspecified; I48.91 Unspecified atrial fibrillation; M19.90 Unspecified osteoarthritis, unspecified site; M10.9 Gout, unspecified; F41.9 Anxiety disorder, unspecified; F32.9 Major depressive disorder, single episode, unspecified; N40.0 Benign prostatic hyperplasia without lower urinary tract symptoms; K21.9 Gastro-esophageal reflux disease without esophagitis; G47.30 Sleep apnea, unspecified; Z99.2 Dependence on renal dialysis; Z87.891 Personal history of nicotine dependence; Z79.899 Other long term (current) drug therapy; Z98.890 Other specified postprocedural states; Z20.822 Contact with and (suspected) exposure to COVID-19
CPT/HCPCS: 36415; 36821; 80048; 82962; 85027; 87426; C9803; J0690; J1644; J2370; J2704; J2710; J3010; J3490; J7040; U0003; 76000

== ENCOUNTER → 2020-12-12 | Outpatient (CLI) | payer BC, OTHER ==
[2020-12-06 10:45] VITALS: BP 98/50
[~2020-12-12] MED LIST changes: -HEPARIN SODIUM 5,000 UNIT in IV NORMAL SALINE 500ML BAG 500 ML IRR ONE; -HYDROmorphone 2 MG/ML VIAL IVP PRN; -IV RINGERS,LACTATED 1000ML 1,000 ML IV SCH; -MORPHINE SULFATE 2 MG/ML VIAL. IVP PRN; -PROCHLORPERAZINE 10 MG/2 ML VIAL. IVP PRN; -fentaNYL PF VIAL 100 MCG/2 ML VIAL IVP PRN
[2020-12-13 10:50] LABS: BASO # 0.1 x10^3/uL (0.0-0.2); BASO % 1 % (0-3); EOS # 0.7 x10^3/uL (0.0-0.7); EOS % 11 % (0-3); HEMATOCRIT 27.6 % (39.0-53.0); HEMOGLOBIN 8.9 g/dL (13.0-17.5); LYMPH # 1.1 x10^3/uL (1.0-4.8); LYMPH % 16 % (24-48); MEAN CORPUSCULAR HEMOGLOBIN 31 pg (25-35); MEAN CORPUSCULAR HGB CONC 32 g/dL (31-37); MEAN CORPUSCULAR VOLUME 95 fL (79-100); MONO # 0.5 x10^3/uL (0.0-1.1); MONO % 8 % (0-9); NEUT # 4.3 x10^3/uL (1.8-7.7); NEUT % 64 % (31-73); PLATELET COUNT 220 x10^3/uL (140-400); RED BLOOD COUNT 2.91 x10^6/uL (4.30-5.70); RED CELL DISTRIBUTION WIDTH 15.6 % (11.5-14.5); WHITE BLOOD COUNT 6.6 x10^3/uL (4.0-11.0)
[2020-12-13 11:23] LABS: ALBUMIN 2.7 g/dL (3.4-5.0); ALBUMIN/GLOBULIN RATIO 0.7 (1.0-1.7); TOTAL PROTEIN 6.7 g/dL (6.4-8.2)
[2020-12-13 11:24] LABS: C-REACTIVE PROTEIN 34.3 mg/L (0-3.3); CALCIUM 8.5 mg/dL (8.5-10.1); CREATININE 8.3 mg/dL (0.7-1.3); GFR 7.6; TOTAL BILIRUBIN 0.4 mg/dL (0.2-1.0)
== END ==
LOC: SPEC 18:00
PROVIDERS: ATTEND Family Medicine
DX: I48.91 Unspecified atrial fibrillation (principal)
CPT/HCPCS: 36415; 80053; 85025; 86140

== ENCOUNTER → 2020-12-13 | Outpatient (CLI) | payer BC, OTHER ==
--- NOTE | 2020-12-13 18:34 | RAD ---
Right hand 3 views INDICATION: Chronic wound right hand COMPARISON: 08/25/2020 right hand x-rays FINDINGS: There is interval osteolysis in the distal tuft of the distal phalanx fourth digit with gas present o verlying the nailbed in the soft tissues. There is associated fusiform swelling of the fourth digit t hat is more conspicuous in the interval. The rest of the digits of the right hand show mild degenerat sandra changes at the first MCP joint. Arteriovascular calcifications also present. IMPRESSION: Findings suspicious for developing osteomyelitis in the distal tuft of the right fourth distal phalan x. Electronically signed by: Dennis Dewitt MD (12/13/2020 6:32 PM) [id number]
[2021-01-10 08:28] VITALS: BP 110/63
== END ==
LOC: RAD 08:22 → EDSTATUS 01-10 14:59
PROVIDERS: ATTEND Nurse Practitioner Family
DX: M86.141 Other acute osteomyelitis, right hand (principal); G89.29 Other chronic pain
CPT/HCPCS: 73130

== ENCOUNTER → 2020-12-27 | Outpatient (CLI) | payer BC, OTHER ==
[2020-12-06 10:45] VITALS: BP 98/50
[~2020-12-27] MED LIST changes: +BARIUM SULFATE 40% (APPLE) 148 GM PWD. PO ONE
--- NOTE | 2020-12-27 17:27 | RAD ---
PROCEDURE: DG VIDEO SWALLOW STUDY STUDY DATE: 12/27/2020 CLINICAL INDICATION / HISTORY: Reason: DYSPHASIA/ 4.3 MIN FLUORO TIME / Spl. Instructions: / History : . TECHNIQUE: Real-time fluoroscopic imaging examination was performed in conjunction with speech therap y. The patient was administered barium labeled thin liquids, nectar, honey, pudding, and solid consis tency compounds. FLUOROSCOPY TIME: 4.3 minutes. Number of Images: 0 COMPARISON: None FINDINGS: Patient showed decreased oral control and manipulation with prolonged oral phase especially with pureed (pudding) consistency. Flash penetration was observed with thin liquids. This cleared wi th swallowing. No definite aspiration was observed. The patient tolerated solid barium label compound s. IMPRESSION: Dysphagia of the primarily oral phase. No evidence of aspiration. Please refer to [facility] pathology notes for complete details and recommendations. Electronically signed by: Dennis Dewitt MD (12/27/2020 5:25 PM) [id number]
== END ==
LOC: RAD 12:51
PROVIDERS: ATTEND Family Medicine
DX: R13.10 Dysphagia, unspecified (principal)
CPT/HCPCS: 74230; 92611-GN

== ENCOUNTER 2021-02-14 06:55 | Outpatient (CLI) | payer BC, OTHER ==
[~2021-02-14] VITALS: Ht 175.3 cm; Wt 84.8 kg
[~2021-02-14 06:55] MED LIST changes: -BARIUM SULFATE 40% (APPLE) 148 GM PWD. PO ONE
[2021-02-14 07:54] LABS: BASO # 0.1 x10^3/uL (0.0-0.2); BASO % 1 % (0-3); EOS % 12 % (0-3); HEMATOCRIT 25.8 % (39.0-53.0); HEMOGLOBIN 8.6 g/dL (13.0-17.5); LYMPH # 1.2 x10^3/uL (1.0-4.8); LYMPH % 14 % (24-48); MEAN CORPUSCULAR HEMOGLOBIN 31 pg (25-35); MEAN CORPUSCULAR HGB CONC 33 g/dL (31-37); MEAN CORPUSCULAR VOLUME 92 fL (79-100); MONO # 0.7 x10^3/uL (0.0-1.1); MONO % 9 % (0-9); NEUT # 5.2 x10^3/uL (1.8-7.7); NEUT % 64 % (31-73); PLATELET COUNT 351 x10^3/uL (140-400); RED BLOOD COUNT 2.79 x10^6/uL (4.30-5.70); RED CELL DISTRIBUTION WIDTH 15.7 % (11.5-14.5); WHITE BLOOD COUNT 8.2 x10^3/uL (4.0-11.0)
[2021-02-14 07:57] VITALS: BP 125/65
[2021-02-14 08:08] LABS: PROTHROMBIN TIME PATIENT 17.2 SEC (11.7-14.0)
[2021-02-14 08:10] LABS: CALCIUM 8.4 mg/dL (8.5-10.1); CREATININE 9.4 mg/dL (0.7-1.3); GFR 6.6
[2021-02-14 08:11] LABS: POTASSIUM 5.5 mmol/L (3.5-5.1)
[2021-02-14] MEDS ORDERED: LIDOCAINE 2%/EPI 1:100,000 20 ML VIAL. ONE (08:24)
[2021-02-14] MEDS ORDERED: MIDAZOLAM HCL/PF 2 MG/2 ML VIAL. IV ONE (08:45)
[2021-02-14] MEDS ORDERED: fentaNYL PF VIAL 100 MCG/2 ML VIAL IV ONE (08:45)
[2021-02-14] MEDS ORDERED: LIDOCAINE 2%/EPI 1:100,000 20 ML VIAL. IJ ONE (08:45)
[2021-02-14 09:29] VITALS: BP 141/71
[2021-02-14 09:40] VITALS: BP 137/75
[2021-02-14 09:55] VITALS: BP 143/67
[2021-02-14 10:10] VITALS: BP 139/65
[2021-02-14 10:25] VITALS: BP 124/60
--- NOTE | 2021-02-14 10:38 | NUR ---
Discharge Note: BARNEY GUZMAN Discharge instructions and discharge home medications reviewed with Dry Cleaning Attendant and a copy given. All questions have been answered and understanding verbalized. The following instructions and handouts were given: adult moderate sedation and tunneled hemodialysis catheter Discontinued lines and drains: Peripheral IV intact. Patient discharged to [facility] withPrimary Care/ Supervisor Hot Dip Plating/transport staff via Wheelchair. Patient headed to dialysis center with transport staff. Spoke with Puja at [facility] regarding patient treatment and current status.
--- NOTE | 2021-02-14 13:43 | RAD ---
Procedure: Tunneled hemodialysis catheter placement 02/14/2021 11:38 AM Clinical Indication: CATHETER PLACEMENT END STAGE RENAL DISEASE. Patient has a known failed right upper extremity fistula with previous stent placement extending across the right internal jugular vein into the brachiocephalic vein precluding routine placement of right internal jugular catheter. Sterility: All elements of maximal sterile barrier technique including the use of a cap, mask, sterile gown, sterile gloves, large sterile sheet, appropriate hand hygiene, and 2% chlorhexidine for cutaneous antisepsis (or acceptable alternative antiseptic per current guidelines) were followed for this procedure. Consent: The procedure was explained in its entirety to the patient or the patients designated ambulatory service representative by a member of the treatment team, including a discussion of the risks, benefits and commonly accepted alternatives to the procedure, as well as the expected consequences of no therapy whatsoever. Discussion of the risks included, but was not limited to, those that are most frequent and those that are rare but possibly severe or life-threatening, as well as the possibility of unforeseen complications. Technique and Findings: Following informed consent, a timeout procedure was performed. The patient was prepped and draped in the usual sterile fashion. Ultrasound interrogation of the right neck revealed patency and compressibility of the left internal jugular vein. A 21-gauge micropuncture was then used to gain access to this vein under ultrasound guidance. A hard copy ultrasound image was recorded. The needle was exchanged over a wire for a 4 Kenyan sheath which was used to guide an guidewire into the IVC. The skin over the right anterior chest wall was copiously anesthetized with 1% Lidocaine and a small dermatotomy was made. A 28 cm tipped cuff palindrome tunneled hemodialysis catheter was then tunneled subcutaneously towards the neck dermatotomy and deployed through a large caliber peel-away sheath under fluoroscopic guidance such that the distal tip resided in the mid right atrium. Manual flow rates were assessed and found to be within normal limits. The catheter was then flushed, packed with Heparin, capped, and sutured to the skin. The neck dermatotomy was closed with Dermabond. No immediate complications were identified. Sedation: Conscious sedation was administered for 38 minutes. The patient was monitored by a qualified independent observer throughout the time of sedation. Please refer to the medical record for exact doses of medications utilized to achieve moderate sedation. Fluoroscopy time: 3.9 minutes Dose area product: 11 sales centimeter squared Impression: Tunneled hemodialysis catheter placement as described
== END 2021-02-14 10:40 ==
LOC: INTRAD 06:55
PROVIDERS: ATTEND Internal Medicine Nephrology
DX: I12.0 Hypertensive chronic kidney disease with stage 5 chronic kidney disease or end stage renal disease (principal); N18.6 End stage renal disease; E11.22 Type 2 diabetes mellitus with diabetic chronic kidney disease; E11.42 Type 2 diabetes mellitus with diabetic polyneuropathy; E78.00 Pure hypercholesterolemia, unspecified; I25.10 Atherosclerotic heart disease of native coronary artery without angina pectoris; I48.91 Unspecified atrial fibrillation; G47.30 Sleep apnea, unspecified; E66.9 Obesity, unspecified; M19.90 Unspecified osteoarthritis, unspecified site; F41.9 Anxiety disorder, unspecified; F32.9 Major depressive disorder, single episode, unspecified; M10.9 Gout, unspecified; Z99.2 Dependence on renal dialysis; Z79.899 Other long term (current) drug therapy; Z98.890 Other specified postprocedural states; Z79.4 Long term (current) use of insulin; Z87.891 Personal history of nicotine dependence; Z20.822 Contact with and (suspected) exposure to COVID-19; Z82.49 Family history of ischemic heart disease and other diseases of the circulatory system; Z83.3 Family history of diabetes mellitus
CPT/HCPCS: 36415; 36558; 76937; 77001; 80048; 85025; 85610; 87426; 99152; 99153; C1750; C1769; C1892; J0690; J2250; J3010; J3490

== ENCOUNTER → 2021-03-16 | Outpatient (CLI) | payer BC, OTHER ==
[2021-02-14 10:25] VITALS: BP 124/60
[~2021-03-16] MED LIST changes: -OMEP40CA45 PO; +OMEP40CA7 PO
[2021-03-16 07:32] LABS: ALBUMIN 2.9 g/dL (3.4-5.0); ALBUMIN/GLOBULIN RATIO 0.7 (1.0-1.7); CALCIUM 9.3 mg/dL (8.5-10.1); CREATININE 4.2 mg/dL (0.7-1.3); GFR 16.6; MAGNESIUM 2.1 mg/dL (1.8-2.4); POTASSIUM 3.5 mmol/L (3.5-5.1); TOTAL BILIRUBIN 0.4 mg/dL (0.2-1.0); TOTAL PROTEIN 7.2 g/dL (6.4-8.2)
[2021-03-16 10:39] LABS: CHOLESTEROL/HDL RATIO 3.2
[2021-03-17 01:14] LABS: HEMOGLOBIN A1C 5.8 % (4.8-5.6)
== END ==
LOC: SPEC 03:45
PROVIDERS: ATTEND Family Medicine
DX: E11.40 Type 2 diabetes mellitus with diabetic neuropathy, unspecified (principal); I10 Essential (primary) hypertension; I50.9 Heart failure, unspecified
CPT/HCPCS: 36415; 80053; 80061; 83036; 83735

== ENCOUNTER 2021-04-17 21:50 | Emergency (ER) | payer BC, OTHER ==
[~2021-04-17] VITALS: Ht 152.4 cm; Wt 72.7 kg
[2021-04-17 22:31] LABS: BASO % 1 % (0-3); EOS # 0.4 x10^3/uL (0.0-0.7); EOS % 8 % (0-3); HEMOGLOBIN 11.1 g/dL (13.0-17.5); LYMPH # 0.8 x10^3/uL (1.0-4.8); LYMPH % 16 % (24-48); MEAN CORPUSCULAR HEMOGLOBIN 31 pg (25-35); MEAN CORPUSCULAR HGB CONC 35 g/dL (31-37); MEAN CORPUSCULAR VOLUME 90 fL (79-100); MONO # 0.6 x10^3/uL (0.0-1.1); MONO % 13 % (0-9); NEUT # 3.2 x10^3/uL (1.8-7.7); NEUT % 63 % (31-73); PLATELET COUNT 218 x10^3/uL (140-400); RED BLOOD COUNT 3.54 x10^6/uL (4.30-5.70); RED CELL DISTRIBUTION WIDTH 16.7 % (11.5-14.5); WHITE BLOOD COUNT 5.1 x10^3/uL (4.0-11.0)
--- NOTE | 2021-04-17 22:57 | RAD ---
AP chest. HISTORY: Cough AP view of the chest was compared with an old study from December 2019. There is a left pacemaker with a ventricular pacing lead. There is a left dialysis catheter extending to the superior vena cava in go od position. Heart is upper normal in size or mildly prominent. There are no acute infiltrates. IMPRESSION: 1. No acute infiltrates. Electronically signed by: Zia Lucero MD (04/17/2021 10:54 PM) [facility]
[2021-04-17 23:16] LABS: CALCIUM 8.6 mg/dL (8.5-10.1); CREATININE 4.4 mg/dL (0.7-1.3); GFR 15.7; POTASSIUM 3.6 mmol/L (3.5-5.1)
[2021-04-17 23:23] LABS: ALBUMIN/GLOBULIN RATIO 0.7 (1.0-1.7); TOTAL BILIRUBIN 0.4 mg/dL (0.2-1.0); TOTAL PROTEIN 7.5 g/dL (6.4-8.2)
--- NOTE | 2021-04-17 23:33 | PHYS DOC ---
Past Medical History Past Medical History: Diabetes-Type II, Renal Failure Additional Past Medical Histor: ESRD, APNEA, Past Surgical History: Other Additional Past Surgical Histo: peg tube, bilateral BKA's Smoking Status: Never Smoker Alcohol Use: None Drug Use: None General Adult EDM: Chief Complaint: FEVER HPI: HPI: Patient is a 80 year old male who presents to the emergency department from [facility] via EMS for chief complaint of fever today. EMS case folder states they were called to the shelter to transport patient here for evaluation. Patient denies any complaints of pain or discomfort. Patient denies any chest pains or shortness of breath. Patient states he has hemodialysis Saturday and had a full hemodialysis today. Patient has a history of end-stage renal disease, states he does not make urine. History of CAD, GERD, heart failure, hyperlipidemia, has a cardiac pacemaker, CVA in the past, essential hypertension, chronic gout, type 2 diabetes, peripheral vascular disease, osteoarthritis, bilateral BKA. Review of Systems: Review of Systems: 14 body systems of review of systems have been reviewed. See HPI for pertinent positives and negative responses, otherwise all other systems are negative, nonpertinent or noncontributory. Heart Score: C/O Chest Pain: No Risk Factors: Risk Factors: DM, Current or recent (<one month) smoker, HTN, HLP, family history of CAD, obesity. Risk Scores: Score 0 - 3: 2.5% MACE over next 6 weeks - Discharge Home Score 4 - 6: 20.3% MACE over next 6 weeks - Admit for Clinical Observation Score 7 - 10: 72.7% MACE over next 6 weeks - Early Invasive Strategies Allergies: Allergies: Allergies Coded Allergies Type Severity Reaction Last Updated Verified I S O L A T I O N *CONTACT* Allergy Unknown 01/10/21 Yes No Known Medication Allergies Allergy Unknown 01/10/21 Yes Physical Exam: PE: Constitutional: Well developed, well nourished, no acute distress, non-toxic appearance. 80-year-old male in no apparent distress. HENT: Normocephalic, atraumatic, bilateral external ears normal, oropharynx moist, no oral exudates, nose normal. Bilateral TMs within normal limits, oropharynx moist, pink, no edema or erythema appreciated, no laryngeal edema appreciated, patient speaking in normal voice tones, no drooling, no trismus. Eyes: Conjunctiva normal, no discharge. Neck: Normal range of motion, no tenderness, supple, no stridor. No nuchal rigidity, no meningismus signs. Cardiovascular:Heart rate regular rhythm, no murmur. Lungs & Thorax: Bilateral breath sounds clear to auscultation all lung pinto, no adventitious lung sounds appreciated. Patient has dialysis catheter on left anterior chest wall. No drainage, catheter is intact. Abdomen: Bowel sounds normal, soft, no tenderness, no masses, no pulsatile masses. Skin: Warm, dry, no erythema, no rash. No pressure sores appreciated. Back: No tenderness, no CVA tenderness. Extremities: No tenderness, no cyanosis, no clubbing, ROM intact, no edema. Bilateral well-healed BKA. Neurologic: Alert and oriented X 3, normal motor function, normal sensory function, no focal deficits noted. Psychologic: Affect normal, judgement normal, mood normal. Current Patient Data: Labs: Laboratory Tests Test 04/17/21 22:20 04/17/21 22:58 White Blood Count 5.1 x10^3/uL (4.0-11.0) Red Blood Count 3.54 x10^6/uL (4.30-5.70) L Hemoglobin 11.1 g/dL (13.0-17.5) L Hematocrit 32.0 % (39.0-53.0) L Mean Corpuscular Volume 90 fL (79-100) Mean Corpuscular Hemoglobin 31 pg (25-35) Mean Corpuscular Hemoglobin Concent 35 g/dL (31-37) Red Cell Distribution Width 16.7 % (11.5-14.5) H Platelet Count 218 x10^3/uL (140-400) Neutrophils (%) (Auto) 63 % (31-73) Lymphocytes (%) (Auto) 16 % (24-48) L Monocytes (%) (Auto) 13 % (0-9) H Eosinophils (%) (Auto) 8 % (0-3) H Basophils (%) (Auto) 1 % (0-3) Neutrophils # (Auto) 3.2 x10^3/uL (1.8-7.7) Lymphocytes # (Auto) 0.8 x10^3/uL (1.0-4.8) L Monocytes # (Auto) 0.6 x10^3/uL (0.0-1.1) Eosinophils # (Auto) 0.4 x10^3/uL (0.0-0.7) Basophils # (Auto) 0.0 x10^3/uL (0.0-0.2) Lactic Acid Level 0.6 mmol/L (0.4-2.0) Sodium Level 135 mmol/L (136-145) L Potassium Level 3.6 mmol/L (3.5-5.1) Chloride Level 95 mmol/L (98-107) L Carbon Dioxide Level 29 mmol/L (21-32) Anion Gap 11 (6-14) Blood Urea Nitrogen 58 mg/dL (8-26) H Creatinine 4.4 mg/dL (0.7-1.3) H Estimated GFR (Cockcroft-Gault) 15.7 BUN/Creatinine Ratio 13 (6-20) Glucose Level 104 mg/dL (70-99) H Calcium Level 8.6 mg/dL (8.5-10.1) Total Bilirubin 0.4 mg/dL (0.2-1.0) Aspartate Amino Transferase (AST) 38 U/L (15-37) H Alanine Aminotransferase (ALT) 25 U/L (16-63) Alkaline Phosphatase 184 U/L (46-116) H Total Protein 7.5 g/dL (6.4-8.2) Albumin 3.0 g/dL (3.4-5.0) L Albumin/Globulin Ratio 0.7 (1.0-1.7) L Laboratory Tests 04/17/21 22:20 Laboratory Tests 04/17/21 22:58 Vital Signs: Vital Signs Date Time Temp Pulse Resp B/P (MAP) Pulse Ox O2 Delivery O2 Flow Rate FiO2 04/17/21 22:03 99.2 68 22 122/60 (80) 91 Room Air 99.2 EKG: EKG: [] Radiology/Procedures: Radiology/Procedures: PATIENT: BARNEY GUZMAN RACCOUNT: [id number] : 1940 LOCATION: ER AGE: 80 SEX: M EXAM STATUS: REG ER ORD. PHYSICIAN: SAM PLAZA APRN REASON: cough PROCEDURE: PORTABLE CHEST 1V AP chest. HISTORY: Cough AP view of the chest was compared with an old study from December 2019. There is a left pacemaker with a ventricular pacing lead. There is a left dialysis catheter extending to the superior vena cava in good position. Heart is upper normal in size or mildly prominent. There are no acute infiltrates. IMPRESSION: 1. No acute infiltrates. Electronically signed by: Annette Lucero MD (04/17/2021 10:54 PM) [facility] DICTATED and SIGNED BY: ANNETTE LUCERO MD DATE: 04/17/21 [id number] 0 Course & Med Decision Making: Course & Med Decision Making Pertinent Labs and Imaging studies reviewed. (See chart for details) 80-year-old male, vital signs reviewed, presents emergency department for e valuation of fever at shelter today. Patient did not have fever upon arrival to the emergency department, vital signs were within normal limits, physical examination was nonconcerning for acute infectious process, will order CBC, CMP, chest x-ray to rule out other infectious processes. Chest x-ray negative for acute process, lab work nonconcerning, consistent with end-stage renal disease. Patient remains complaint free, will discharge patient back to shelter, patient remains hemodynamically stable at this disposition time. Dragon Disclaimer: [facility] Disclaimer: This electronic medical record was generated, in whole or in part, using a voice recognition dictation system. Departure Departure Impression: Primary Impression: Feared condition not demonstrated Additional Impressions: ESRD (end stage renal disease) Hx of BKA Qualified Codes: Z89.519 - Acquired absence of unspecified leg below knee Disposition: 01 HOME / SELF CARE / HOMELESS Condition: GOOD Referrals: SAM GUSTAFSON MD (PCP) Additional Instructions: You were seen today in the emergency department related to a reported fever at the shelter you live in. Your primary care physician Dr. Gustafson requested that you be sent here to the emergency department for a chest x-ray and emergency room evaluation to rule out any infectious process that would require admission to the hospital. Your chest x-ray did not show any concerning findings, your lab work did not show any signs of infectious process. You have stated to me that you feel fine and that you do not feel ill in any way. I am sending you back to your shelter, please continue to accept your hemodi alysis treatments on Wednesdays and Fridays. Please return to the emergency department for worsening symptoms or other concerns. It was a pleasure taking care of you today in the emergency department and I thank you for allowing me to participate in your emergency healthcare needs. EMERGENCY DEPARTMENT GENERAL DISCHARGE INSTRUCTIONS Thank you for coming to [facility] Emergency Department (ED) today and trusting us with you care. We trust that you had a positive experience in our Emergency Department. If you wish to speak to the department management, you may call the Director at [phone]. YOUR FOLLOW UP INSTRUCTIONS ARE FOLLOWS: 1. Do you have a private Doctor? If you do not have a private doctor, please ask for a resource list of physicians or clinics that may be able to assist you with follow up care. 2. The Emergency Physicain has interpreted your x-rays. The X-Ray specialist will also review them. If there is a change in the findings, you will be notified in 48 hours when at all possible. 3. A lab test or culture has been done, your results will be reviewed and you will be notified if you need a change in treatment. ADDITIONAL INSTRUCTIONS AND INFORMATION: 1. Your care today has been supervised by a physician who is specially trained in emergency care. Many problems require more than one evaluation for a complete diagnosis and treatment. We recommend that you schedule your follow up appointment as recommended to ensure complete treatment of you illness or injury. If you are unable to obtain follow up care and continue to have a problem, or if your condition worsens, we recommend that you return to the ED. 2. We are not able to safely determine your condition over the phone nor are we able to give sound medical advice over the phone. For these safety reasons, if you call for medical advice we will ask you to come to the ED for further evaluation. 3. If you have any questions regarding these discharge instructions please call the ED at [phone]. SAFETY INFORMATION: In the interest of safety, wellness, and injury prevention; we encourage you to wear your sealbelt, if you smoke; quite smoking, and we encourage family to use a protective helmet for bicycling and other sporting events that present an increased risk for head injury. IF YOUR SYMPTOMS WORSEN OR NEW SYMPTOMS DEVELOP, OR YOU HAVE CONCERNS ABOUT YOUR CONDITION; OR IF YOUR CONDITION WORSENS WHILE YOU ARE WAITING FOR YOUR FOLLOW UP APPOINTMENT; EITHER CONTACT YOUR PRIMARY CARE DOCTOR, THE PHYSICIAN WHOSE NAME AND NUMBER YOU WERE GIVEN, OR RETURN TO THE ED IMMEDIATELY. SAM PLAZA APRN Apr 17, 2021 23:33
[2021-04-17 23:51] VITALS: BP 140/68
[2021-04-18] MEDS ORDERED: IOHEXOL 300 MG/ML 100ML VIAL. IV ONE (15:00)
[2021-04-18] MEDS ORDERED: CONTRAST GIVEN. MC PRN (15:00)
[2021-04-18] MEDS ORDERED: IOHEXOL 240 MG/ML 50ML VIAL. PO ONE (15:00)
== END 2021-04-18 00:28 | disposition home or self-care (01) ==
LOC: ER 21:50
DX: Z71.1 Person with feared health complaint in whom no diagnosis is made (principal); E11.22 Type 2 diabetes mellitus with diabetic chronic kidney disease; N18.6 End stage renal disease; Z99.2 Dependence on renal dialysis; Z89.512 Acquired absence of left leg below knee; Z89.511 Acquired absence of right leg below knee; Z79.4 Long term (current) use of insulin; Z91.041 Radiographic dye allergy status
CPT/HCPCS: 36415; 71045; 80053; 83605; 85025; 99284; Q9966; Q9967

== ENCOUNTER → 2021-04-18 | Outpatient (CLI) | payer BC, OTHER ==
[2021-04-17 23:51] VITALS: BP 140/68
[~2021-04-18] MED LIST changes: -CLIN150C15 PO; +CLIN150C16 PO; +IOHEXOL 300 MG/ML 75 ML VIAL ONE
--- NOTE | 2021-04-19 08:33 | RAD ---
PQRS Compliance Statement: One or more of the following individualized dose reduction techniques were utilized for this examinat ion: 1. Automated exposure control 2. Adjustment of the mA and/or kV according to patient size 3. Use of iterative reconstruction technique CT ABDOMEN W 04/18/2021 3:28 PM Indication: Abdominal pain COMPARISON: None available. TECHNIQUE: Multiple axial CT images of abdomen were obtained after the intravenous demonstration of 6 0 mL Omnipaque 300. Coronal and sagittal reformats are provided. FINDINGS: There is bibasilar subsegmental atelectasis. Heart size is borderline enlarged. Cardiac pacer wires a re partially profiled. Three-vessel coronary artery vascular calcifications are noted. Aortic valvula r calcifications are identified. Liver, spleen, adrenal glands and gallbladder are normal in appearance. There is mild fatty atrophy o f the pancreas. Abdominal aorta is normal in caliber with moderate calcified plaque. No pathologically enlarged lymph nodes are identified in abdomen and pelvis. There is no free fluid or free intraperitoneal air. The kidneys enhance symmetrically. There is no suspicious renal mass. There is no hydronephrosis. There a re no suspected calculi within the kidneys or proximal ureters. Vascular calcifications are identifie d in the right renal hilum. Oral contrast was administered. Opacified bowel loops demonstrate normal mucosal fold pattern. Small and large bowel are normal in caliber. There is no evidence for bowel obstruction. Portions of the ri ght colon are decompressed, limiting evaluation. Appendix is normal. Advanced degenerative changes of the sacroiliac joints. Moderate lumbar spondylosis. IMPRESSION: No acute abnormality is identified in the abdomen and pelvis. Atherosclerotic changes are identified with three-vessel coronary artery vascular calcifications, aor tic valvular calcifications and moderate calcified plaque of the abdominal aorta. Electronically signed by: Suki Bishop MD (04/19/2021 8:31 AM) [id number]
== END ==
LOC: CT 14:53
PROVIDERS: ATTEND Family Medicine
DX: N28.89 Other specified disorders of kidney and ureter (principal); K86.89 Other specified diseases of pancreas; I70.0 Atherosclerosis of aorta; M47.816 Spondylosis without myelopathy or radiculopathy, lumbar region; J98.11 Atelectasis; I51.7 Cardiomegaly
CPT/HCPCS: 74160; Q9967

== ENCOUNTER 2021-04-21 08:09 | Outpatient (CLI) | payer BC, OTHER ==
[~2021-04-21] VITALS: Ht 182.9 cm; Wt 84.1 kg
[~2021-04-21 08:09] MED LIST changes: -IOHEXOL 300 MG/ML 75 ML VIAL ONE
[2021-04-21 08:47] VITALS: BP 158/61
[2021-04-21] MEDS ORDERED: IOHEXOL 300 MG/ML 100ML VIAL. ONE (09:40)
[2021-04-21] MEDS ORDERED: LIDOCAINE WITH 8.4% SOD BICARB 3 ML DISP.SYRIN. ONE (10:41)
[2021-04-21] MEDS ORDERED: IOHEXOL 300 MG/ML 100ML VIAL. IV ONE (10:45)
[2021-04-21] MEDS ORDERED: LIDOCAINE WITH 8.4% SOD BICARB 3 ML DISP.SYRIN. INJ ONE (11:00)
[2021-04-21 11:15] VITALS: BP 184/65
--- NOTE | 2021-04-21 12:10 | NUR ---
post venogram procedure called Milana the nurse at [facility] with report. pt may resume normal activity and medications. bandaid over both the wrist and brachial access sites with no bleeding. pt transferred back to his w/c per lift. [facility] here to transport pt to dialysis and then back to facility.
--- NOTE | 2021-04-21 16:40 | RAD ---
04/21/2021 Left upper extremity venogram INDICATION: Long-standing end-stage renal disease. History of failed right upper extremity AV graft/f istula. Occluded right subclavian and brachiocephalic stent venous stents. Current left internal jugu lar tunnel dialysis catheter and a left subclavian pacemaker. Evaluating for possible future AV acces s. Consent: The procedure was explained in its entirety to the patient or the patients designated repres entative by a member of the treatment team, including a discussion of the risks, benefits and commonl y accepted alternatives to the procedure, as well as the expected consequences of no therapy whatsoev er. Discussion of the risks included, but was not limited to, those that are most frequent and thos e that are rare but possibly severe or life-threatening, as well as the possibility of unforeseen com plications. The left upper extremity was prepped and draped using sterile barrier technique. Limited veins for ve nous access for seen in the left hand. This in conjunction with significantly limited range of motion of the upper arm and shoulder due to difficult visualization of forearm veins. An IV was started sammi ng the radial aspect of the dorsal hand. Ultrasound guidance was used. Reference images were saved me dical record. A venogram from this position demonstrated a patent cephalic vein. Is some tortuosity a nd what appears to be a junction of either the cephalic vein or medial cubital vein with the brachial vein. The brachial vein is widely patent. The basilic vein appears to be patent. The brachial vein w as accessed with ultrasound guidance for Central venograms were performed. The left axillary vein is patent. The left subclavian vein is patent. There is moderate stenosis of the left brachiocephalic ve in. No significant reflux of contrast was seen however. The SVC is patent. Both IVs were removed. Manual pressure was held. Sterile dressings were applied. Total fluoroscopy time 2.3 minutes Dose area product 6.1 Lawson centimeter squared. IMPRESSION: 1. 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 Limited evaluation of forearm veins. Left basilic vein and brachial veins appear to be patent. Cep halic vein in the upper arm was not visualized. Electronically signed by: Joe Faust MD (04/21/2021 4:37 PM) [id number]
== END 2021-04-21 12:10 ==
LOC: INTRAD 08:09
PROVIDERS: ATTEND Specialist
DX: I12.0 Hypertensive chronic kidney disease with stage 5 chronic kidney disease or end stage renal disease (principal); N18.6 End stage renal disease; E11.22 Type 2 diabetes mellitus with diabetic chronic kidney disease; I25.10 Atherosclerotic heart disease of native coronary artery without angina pectoris; E78.00 Pure hypercholesterolemia, unspecified; I48.91 Unspecified atrial fibrillation; E66.9 Obesity, unspecified; K21.9 Gastro-esophageal reflux disease without esophagitis; M19.90 Unspecified osteoarthritis, unspecified site; F41.9 Anxiety disorder, unspecified; M10.9 Gout, unspecified; F32.9 Major depressive disorder, single episode, unspecified; Z99.2 Dependence on renal dialysis; Z87.891 Personal history of nicotine dependence; Z79.84 Long term (current) use of oral hypoglycemic drugs; Z79.899 Other long term (current) drug therapy; Z98.890 Other specified postprocedural states; Z88.8 Allergy status to other drugs, medicaments and biological substances
CPT/HCPCS: 36005; 75820; 76937; C1892; J3490; Q9967; 20553; 23350; 77002

== ENCOUNTER → 2021-06-05 | Outpatient (CLI) | payer BC ==
--- NOTE | 2021-06-05 09:21 | RAD ---
EXAM: Cervical spine, 3 views; thoracic spine, 2 views; bilateral shoulders, 6 views. HISTORY: Pain. COMPARISON: None. FINDINGS: Cervical spine: 3 views of the cervical spine are obtained. There is straightening of cervical lordos is. There is degenerative endplate remodeling with disc space narrowing and anterior osteophytosis at the mid lower cervical levels. There is multilevel facet arthropathy. Evaluation of the lower cervic al levels is limited on the lateral views due to overlying artifact. There is a right subclavian sten t. There is a left central venous catheter and left-sided cardiac pacemaker partially included on the [id number]. Bilateral shoulders: 3 views of both shoulders are obtained. There is moderate to severe right and mo derate left glenohumeral osteoarthritis. There is associated bony remodeling involving the right jazmine ral head and glenoid. There is degenerative subchondral sclerosis and subchondral cyst formation with inferior predominant marginal spurring involving the glenohumeral joints. There is minimal right gre ater than left acromioclavicular joint spurring. There is no fracture, dislocation or subluxation. Thoracic spine: 2 views of the thoracic spine are obtained. There is multilevel endplate remodeling w ith anterior spurring. There is no acute fracture. There is no significant listhesis. There is a righ t subclavian stent. There is a left central venous catheter with the tip in the right atrium. There i s partial visualization of a left-sided cardiac pacemaker. IMPRESSION: 1. Multilevel degenerative change involving the cervical and thoracic spine. There is no acute osseou s finding. 2. Moderate to severe right and moderate left glenohumeral joint osteoarthritis. Electronically signed by: Ya Abdi MD (06/05/2021 9:18 AM) [id number]
== END ==
LOC: RAD 08:00
PROVIDERS: ATTEND Family Medicine
DX: M47.813 Spondylosis without myelopathy or radiculopathy, cervicothoracic region (principal); M48.02 Spinal stenosis, cervical region; M19.012 Primary osteoarthritis, left shoulder; M77.8 Other enthesopathies, not elsewhere classified; G89.11 Acute pain due to trauma
CPT/HCPCS: 72040; 72072; 73030-50

== ENCOUNTER → 2021-06-20 | Day surgery (SDC) | payer BC, OTHER ==
[~2021-06-20] VITALS: Ht 175.3 cm; Wt 85.5 kg
[~2021-06-20] MED LIST changes: +DEXAMETHASONE SOD PHOS 4 MG/ML VIAL ONE; +FAMOTIDINE 20 MG/2 ML VIAL ONE; +HEPARIN SODIUM 5,000 UNIT in IV NORMAL SALINE 500ML BAG 500 ML IRR ONE; +HEPARIN for IV BOLUS 10,000 UNIT/10 ML VIAL. ONE; +HYDROmorphone 2 MG/ML VIAL IVP PRN; +INSULIN LISPRO 100 UNIT/ML 3ML VIAL for OP,RR ONLY. SQ PRN; +IV NORMAL SALINE 1000ML BAG 1,000 ML IV SCH; +IV RINGERS,LACTATED 1000ML 1,000 ML IV SCH; +LIDOCAINE 1% Multi-Dose 20 ML VIAL. ONE; +LIDOCAINE 1% PF 5 ML VIAL. ONE; +MORPHINE SULFATE 2 MG/ML INJ. IVP PRN; +ONDANSETRON PF 4 MG/2 ML VIAL. ONE; +PHENYLEPHRINE in 0.9% NACL PF 1 MG/10 ML SYRINGE. IV ONE; +PROCHLORPERAZINE 10 MG/2 ML VIAL. IVP PRN; +PROPOFOL 10 MG/ML (20ML) VIAL. IV ONE; +SEVOFLURANE 61 TO 120 MINUTES. IH ONE; +SURGICEL FIBRILLAR 1X2 EACH. ONE; +ePHEDrine PF IN SALINE 50 MG/10 ML SYRINGE. IV ONE; +fentaNYL PF VIAL 100 MCG/2 ML VIAL IVP PRN; +fentaNYL PF VIAL 100 MCG/2 ML VIAL ONE
[2021-06-20 08:11] VITALS: BP 148/68
[2021-06-20 09:11] LABS: BASO # 0.1 x10^3/uL (0.0-0.2); BASO % 1 % (0-3); EOS # 0.9 x10^3/uL (0.0-0.7); EOS % 12 % (0-3); HEMATOCRIT 35.5 % (39.0-53.0); HEMOGLOBIN 11.9 g/dL (13.0-17.5); LYMPH # 1.2 x10^3/uL (1.0-4.8); LYMPH % 16 % (24-48); MEAN CORPUSCULAR HEMOGLOBIN 30 pg (25-35); MEAN CORPUSCULAR HGB CONC 34 g/dL (31-37); MEAN CORPUSCULAR VOLUME 90 fL (79-100); MONO # 0.7 x10^3/uL (0.0-1.1); MONO % 9 % (0-9); NEUT # 4.6 x10^3/uL (1.8-7.7); NEUT % 62 % (31-73); PLATELET COUNT 297 x10^3/uL (140-400); RED BLOOD COUNT 3.94 x10^6/uL (4.30-5.70); RED CELL DISTRIBUTION WIDTH 17.9 % (11.5-14.5); WHITE BLOOD COUNT 7.4 x10^3/uL (4.0-11.0)
[2021-06-20 09:15] LABS: CALCIUM 9.1 mg/dL (8.5-10.1); CREATININE 4.9 mg/dL (0.7-1.3); GFR 13.9
--- NOTE | 2021-06-20 10:26 | DISCH ---
DISCHARGE INSTRUCTIONS Condition on Discharge Condition on Discharge: Stable Activity After Discharge Activity Instructions for Disc: Activity as tolerated, Bedrest today Other activity instructions: elevate left arm as needed for swelling Bathing Instructions: Shower-keep dressing dry Diet after Discharge Diet after Discharge: Renal Dialysis Additional Diet Restrictions: follow preop diet Wound Incision Care Wound/Incision Care: Change dressing (remove dressing 48 hours, then keep clean and dry) Wound Care Equipment: Dressings (may remove dressing in 48 hours, keep clean and dry) Contacting the after DC Call your doctor for: Concerns you may have Follow-Up Follow up with: call for follow up appointment in 2-3 weeks [phone] STANLEY DUMONT APRN Jun 20, 2021 10:26
--- NOTE | 2021-06-20 12:25 | PDOC ---
BRIEF OPERATIVE NOTE Date: Jun 20, 2021 Pre-Op Diagnosis ESRD Occluded right arm shunts PVD Post-Op Diagnosis same Procedure Performed Left upper arm shunt placement Surgeon Thanh Cloud Anesthesia Type: General Blood Loss 20ml Specimens Obtained none Findings Calcified proximal left brachial artery, but good Doppler signal post shunt placement Good caliber left proximal brachial vein Complications none KIM OGDEN MD Jun 20, 2021 12:25
[2021-06-20 12:27] VITALS: BP 109/31
--- NOTE | 2021-06-20 12:52 | OP ---
DATE OF SURGERY: 06/20/2021 PREOPERATIVE DIAGNOSES: 1. Chronic renal failure, on hemodialysis. 2. Occluded right arm arteriovenous shunt. 3. Severe peripheral arterial disease with previous bilateral below-knee amputations. POSTOPERATIVE DIAGNOSES: 1. Chronic renal failure, on hemodialysis. 2. Occluded right arm arteriovenous shunt. 3. Severe peripheral arterial disease with previous bilateral below-knee amputations. PROCEDURE: Left upper arm arteriovenous shunt placement (4 mm to 7 mm Propaten [place]-Johnathan). SURGEON: Manoj Law MD GLASS SMOOTHER: Betty Cloud MD ANESTHESIA: General. INDICATIONS: The patient is an 80-year-old male with chronic renal failure, on hemodialysis. He presents for long-term access placement. FINDINGS: Left proximal brachial vein was of good caliber. He underwent a left upper arm arteriovenous loop graft from the proximal brachial artery to the proximal brachial vein. There was good flow through the outflow vein as well as in the brachial artery distal to the shunt. He had biphasic Doppler flow in the left brachial artery, but it was very difficult to hear Doppler flow more distally. DESCRIPTION OF PROCEDURE: The patient was taken to the operating room and placed on the operating table. He underwent general anesthetic, the left arm was prepped and draped in normal sterile fashion. 1% lidocaine was used to supplement the general anesthetic. A longitudinal incision was made along the medial left upper arm. This incision carried down through subcutaneous tissue to expose the proximal brachial vein and brachial artery. It was noted there was some calcified plaque in the brachial artery, but this was compressible and felt to be a reasonable arterial inflow. The brachial vein was of good caliber. He underwent placement of a left upper arm arteriovenous shunt with arterial limb lateral and venous limb medial. There was good Doppler assessment through the outflow vein at the completion of the case. The patient was taken to the operating room and placed on the operating table. He underwent general anesthetic, the left arm was prepped and draped in normal sterile fashion. Longitudinal incision was made on the proximal left upper arm. This incision was carried down to mobilize the brachial artery and brachial veins. Small crossing vessels were divided between Hemoclips. A 4 mm to 7 mm Propaten [place]-Johnathan graft was tunneled in a loop in the left upper arm facilitated by a distal counter incision. Care was taken to prevent twisting of the graft. He was given 7000 units of IV heparin. Brachial artery was clamped proximally and distally and an anterior arteriotomy was performed and extended with Childs scissors for approximately 8-10 mm in length. The 4 mm limb of the graft was beveled to the appropriate size and an end-to-side anastomosis constructed with a running 5-0 Prolene suture. Upon completion of the anastomosis, the arteries were backward and forward flushed through the graft. The graft was then flushed with heparinized saline. The brachial vein was then clamped proximally and distally. An anterior venotomy was performed and extended with Childs scissors for approximately 1.5 cm in length, 7 mm limb of the graft was beveled to the appropriate size and an end-to-side anastomosis constructed with running 5-0 Prolene suture. Prior to completion of anastomosis, the graft was forward flushed. The anastomosis was completed and flow reconstituted through the brachial vein in the newly created arteriovenous shunt. Doppler assessment showed good flow through the outflow vein as well as in the brachial artery distal to the anastomosis. The incisions were copiously irrigated with antibiotic saline irrigation. There was good hemostasis. Subcutaneous tissue was reapproximated with 3-0 Vicryl suture. Skin was reapproximated with a running subcuticular 4-0 Vicryl. Mastisol and Steri-Strips were applied. A sterile dressing placed into the wound. Estimated blood loss of 20 mL SPECIMEN: None. Please note that Dr. Betty Cloud assisted with exposure and construction of the arteriovenous shunt. WHITNEY DR: Santi TID: [id number] CC: SAM MELÉNDEZ MD
== END ==
LOC: SURG 07:40 → EDSTATUS 09:15 → SURG 13:09
PROVIDERS: ATTEND Specialist
DX: I12.0 Hypertensive chronic kidney disease with stage 5 chronic kidney disease or end stage renal disease (principal); E11.22 Type 2 diabetes mellitus with diabetic chronic kidney disease; N18.6 End stage renal disease; I25.10 Atherosclerotic heart disease of native coronary artery without angina pectoris; I25.2 Old myocardial infarction; E11.51 Type 2 diabetes mellitus with diabetic peripheral angiopathy without gangrene; E78.00 Pure hypercholesterolemia, unspecified; I48.91 Unspecified atrial fibrillation; M19.90 Unspecified osteoarthritis, unspecified site; F41.9 Anxiety disorder, unspecified; F32.9 Major depressive disorder, single episode, unspecified; Z87.01 Personal history of pneumonia (recurrent); K21.9 Gastro-esophageal reflux disease without esophagitis; G47.33 Obstructive sleep apnea (adult) (pediatric); M10.9 Gout, unspecified; E66.9 Obesity, unspecified; F17.210 Nicotine dependence, cigarettes, uncomplicated; Z87.442 Personal history of urinary calculi; Z86.73 Personal history of transient ischemic attack (TIA), and cerebral infarction without residual deficits; Z86.010 Personal history of colon polyps; Z89.512 Acquired absence of left leg below knee; Z89.511 Acquired absence of right leg below knee; Z98.890 Other specified postprocedural states
CPT/HCPCS: 36415; 36830; 80048; 82962; 85025; A4209; A4213; A4364; A4930; A6402; C1768; J0690; J1644; J2370; J2405; J2704; J3010; J3490; J7040; A4452; J1100

== ENCOUNTER → 2021-09-26 | Day surgery (SDC) | payer BC, OTHER ==
[~2021-09-26] VITALS: Ht 170.2 cm; Wt 81.6 kg
[~2021-09-26] MED LIST changes: +AMOX1TAB58 PO; -DEXAMETHASONE SOD PHOS 4 MG/ML VIAL ONE; -FAMOTIDINE 20 MG/2 ML VIAL ONE; +FENT1PAT15 TD; -HEPARIN SODIUM 5,000 UNIT in IV NORMAL SALINE 500ML BAG 500 ML IRR ONE; -HEPARIN for IV BOLUS 10,000 UNIT/10 ML VIAL. ONE; +KETAMINE HCL IN NACL, ISO-OSM 50 MG/5 ML SYRINGE ONE; -LIDOCAINE 1% Multi-Dose 20 ML VIAL. ONE; +LIDOCAINE 1% PF 30 ML VIAL. ONE; -LIDOCAINE 1% PF 5 ML VIAL. ONE; -ONDANSETRON PF 4 MG/2 ML VIAL. ONE; -PHENYLEPHRINE in 0.9% NACL PF 1 MG/10 ML SYRINGE. IV ONE; -PROPOFOL 10 MG/ML (20ML) VIAL. IV ONE; -SEVOFLURANE 61 TO 120 MINUTES. IH ONE; -SURGICEL FIBRILLAR 1X2 EACH. ONE; +ZINC50TA39 PO; +ceFAZolin IM 1 GM VIAL IM ONE; -ePHEDrine PF IN SALINE 50 MG/10 ML SYRINGE. IV ONE; -fentaNYL PF VIAL 100 MCG/2 ML VIAL ONE
[2021-09-26 08:16] VITALS: BP 99/39
[2021-09-26 09:20] LABS: CALCIUM 8.7 mg/dL (8.5-10.1); CREATININE 3.8 mg/dL (0.7-1.3); GFR 18.6
[2021-09-26 09:24] LABS: POTASSIUM 2.9 mmol/L (3.5-5.1)
--- NOTE | 2021-09-26 09:28 | DISCH ---
DISCHARGE INSTRUCTIONS Condition on Discharge Condition on Discharge: Stable Activity After Discharge Activity Instructions for Disc: Activity as tolerated Bathing Instructions: Shower-keep dressing dry (Dry dressings only. Can shower 09/28, water can run over incision. Dry after, keep clean and dry) Diet after Discharge Diet after Discharge: Renal Dialysis Additional Diet Restrictions: follow preop diet Wound Incision Care Wound/Incision Care: Change dressing (09/28, remove completely then redress with dry 4x4 gauze. Dry dressings only. ) Wound Care Equipment: Dressings Contacting the DR. after DC Call your doctor for: Concerns you may have (Notify physician right away if any increased redness, poor signs of healing, discoloration, drainage or odor from incision) Follow-Up Follow up with: Manoj Law MD on 10/19/21 at 0900. Medical office building B. [phone] LINNEA MCCANN Sep 26, 2021 09:28
[2021-09-26 09:51] LABS: BASO # 0.1 x10^3/uL (0.0-0.2); BASO % 1 % (0-3); EOS # 0.6 x10^3/uL (0.0-0.7); EOS % 6 % (0-3); HEMATOCRIT 26.7 % (39.0-53.0); HEMOGLOBIN 8.6 g/dL (13.0-17.5); LYMPH # 0.9 x10^3/uL (1.0-4.8); LYMPH % 7 % (24-48); MEAN CORPUSCULAR HEMOGLOBIN 30 pg (25-35); MEAN CORPUSCULAR HGB CONC 32 g/dL (31-37); MEAN CORPUSCULAR VOLUME 92 fL (79-100); MONO # 0.8 x10^3/uL (0.0-1.1); MONO % 7 % (0-9); NEUT # 9.4 x10^3/uL (1.8-7.7); NEUT % 80 % (31-73); PLATELET COUNT 291 x10^3/uL (140-400); RED CELL DISTRIBUTION WIDTH 17.3 % (11.5-14.5); WHITE BLOOD COUNT 11.7 x10^3/uL (4.0-11.0)
--- NOTE | 2021-09-26 10:38 | OP ---
DATE OF SURGERY: 09/26/2021 PREOPERATIVE DIAGNOSES: 1. Right middle finger gangrene. 2. Chronic renal failure, on hemodialysis. 3. Diabetes. 4. Hypertension. POSTOPERATIVE DIAGNOSES: 1. Right middle finger gangrene. 2. Chronic renal failure, on hemodialysis. 3. Diabetes. 4. Hypertension. 5. Right middle finger abscess. PROCEDURE: Right middle finger amputation through proximal phalanx with primary closure. SURGEON: Manoj Law MD [employer]: SLY Luis ANESTHESIA: Monitored anesthesia care, local. INDICATIONS: The patient is an 80-year-old male with chronic renal failure, on hemodialysis, who presents with gangrenous changes to the distal aspect of the right middle finger. He presents for primary amputation. There has been progressive gangrene since I saw him in the office one and a half weeks ago. FINDINGS: He underwent amputation through the proximal phalanx. I made the initial incision close to the area of eschar, but there was purulence tracking along his flexor tendon. A more proximal incision was then made to try to get proximal to the area of purulence. Cultures were obtained. Primary closure was performed. There was minimal bleeding at the amputation site. This was easily controlled with electrocautery. DESCRIPTION OF OPERATION: The patient was taken to the operating room and placed upon the operating table. He underwent IV sedation. His right hand and wrist were prepped and draped in normal sterile fashion. 1% lidocaine was infused as a digital block at the base of the right middle finger. Initial incision was made just proximal to the area of eschar. There was some purulence along the flexor surface. The distal gangrene may have been due to some infection. There was significant progression since I saw him a week and a half ago. The incision was made more proximal. This was extended down to the proximal phalanx. The proximal phalanx was divided with a bone cutter and trimmed proximally with a rongeur. The flexor tendon was resected along with some area of purulence. Sections of this were sent for culture and sensitivity. All areas of purulence or obvious infection were resected. The wound was then copiously irrigated with saline irrigation followed by Ancef irrigation. Electrocautery used for hemostasis. Skin was reapproximated with running 3-0 nylon suture. Xeroform followed by 4 x 4's and Lorenzo wrap was applied. The patient tolerated the procedure well and there were no complications. Estimated blood loss of 0.5 mL SPECIMEN: Cultures from the flexor tendon as well as the finger to pathology. Please note that Yesika Ward assisted with amputation and wound closure. KAUSHIK DR: Santi TID: [id number] CC: SAM MELÉNDEZ MD
[2021-09-26 11:45] VITALS: BP 132/40
== END | disposition home or self-care (01) ==
LOC: SURG 08:12 → EDSTATUS 09:30
PROVIDERS: ATTEND Specialist
DX: I96 Gangrene, not elsewhere classified (principal); I12.9 Hypertensive chronic kidney disease with stage 1 through stage 4 chronic kidney disease, or unspecified chronic kidney disease; E11.22 Type 2 diabetes mellitus with diabetic chronic kidney disease; N18.9 Chronic kidney disease, unspecified; I25.10 Atherosclerotic heart disease of native coronary artery without angina pectoris; I48.91 Unspecified atrial fibrillation; G47.30 Sleep apnea, unspecified; E66.9 Obesity, unspecified; K21.9 Gastro-esophageal reflux disease without esophagitis; M19.90 Unspecified osteoarthritis, unspecified site; M10.9 Gout, unspecified; F41.9 Anxiety disorder, unspecified; F32.9 Major depressive disorder, single episode, unspecified; Z99.2 Dependence on renal dialysis; Z79.4 Long term (current) use of insulin; Z79.899 Other long term (current) drug therapy; Z87.891 Personal history of nicotine dependence; Z98.890 Other specified postprocedural states; Z82.49 Family history of ischemic heart disease and other diseases of the circulatory system; Z83.3 Family history of diabetes mellitus
CPT/HCPCS: 26951; 36415; 80048; 82962; 85025; 87071; 87075; A4930; J0690; J3490

== ENCOUNTER 2021-10-30 19:51 | Inpatient (IN) | payer OTHER ==
[~2021-10-30] VITALS: Ht 152.4 cm; Wt 79.1 kg
[2021-10-30 19:00] VITALS: BP 124/39
[~2021-10-30 19:51] MED LIST changes: +ACET325T21 PO; +ALPR0.5T PO; +ATOR10TA60 PO; -HYDROmorphone 2 MG/ML VIAL IVP PRN; -INSULIN LISPRO 100 UNIT/ML 3ML VIAL for OP,RR ONLY. SQ PRN; -IV NORMAL SALINE 1000ML BAG 1,000 ML IV SCH; -IV RINGERS,LACTATED 1000ML 1,000 ML IV SCH; -KETAMINE HCL IN NACL, ISO-OSM 50 MG/5 ML SYRINGE ONE; -LIDOCAINE 1% PF 30 ML VIAL. ONE; -MORPHINE SULFATE 2 MG/ML INJ. IVP PRN; -PROCHLORPERAZINE 10 MG/2 ML VIAL. IVP PRN; -ceFAZolin IM 1 GM VIAL IM ONE; -fentaNYL PF VIAL 100 MCG/2 ML VIAL IVP PRN
[2021-10-30] MEDS ORDERED: HYOSCYAMINE 0.125 MG TAB.RAPDIS PO PRN (20:15)
[2021-10-30] MEDS ORDERED: TPN PER PHARMACY MC PRN (20:15)
[2021-10-30] MEDS ORDERED: IV NORMAL SALINE 1000ML BAG 1,000 ML IV SCH (20:15)
[2021-10-30] MEDS ORDERED: NALOXONE 0.4 MG/ML VIAL. IV PRN (20:15)
[2021-10-30] MEDS ORDERED: ACETAMINOPHEN 650 MG SUPP.RECT. PR PRN (20:15)
[2021-10-30] MEDS ORDERED: MORPHINE SULFATE 30 ML IV PRN (20:15)
--- NOTE | 2021-10-30 20:21 | NUR ---
[facility]
[2021-10-30] MEDS ORDERED: [UNRECOGNIZED DRUG - OTHER] IV SCH (22:00)
[2021-10-30] MEDS ORDERED: DEXTROSE IV SCH (22:00)
[2021-10-30] MEDS ORDERED: TOTAL PARENTERAL NUTRITION IV SCH (22:00)
[2021-10-30] MEDS ORDERED: WATER IV SCH (22:00)
--- NOTE | 2021-10-31 08:12 | NUR ---
During shift change we rounded on the patient around 0710. At that time patient was having agonal breathing which sounded coarse and he was gargling. At 0724 this nurse went back into the room to assess the patient. His breathing was very minimal with only one breath noted by this nurse, pulse heard by stethoscope but starting to slow. Another nurse asked to come assess patient. With both nurses assessing patient at his bedside, he was pronounced at 0727. Dr Collier notified at 0729. Jess with [facility] notified at 0730. Patients daughter Ynoi called and notified ([phone]) at 0738. [facility] notified at 0742 and stated patient was not eligible for any donations. Family coming in to see patient and Marta Riggs is here at [facility] now with patient. Will follow up
== END 2021-10-31 07:27 | DRG 871 ==
LOC: 4 NORTH 19:51 → EEVIPCON 19:51
PROVIDERS: ADMIT Internal Medicine; ATTEND Internal Medicine
DX: A41.9 Sepsis, unspecified organism (principal); N18.6 End stage renal disease; I12.0 Hypertensive chronic kidney disease with stage 5 chronic kidney disease or end stage renal disease; G93.49 Other encephalopathy; M86.8X8 Other osteomyelitis, other site; E11.22 Type 2 diabetes mellitus with diabetic chronic kidney disease; Z99.2 Dependence on renal dialysis; Z79.4 Long term (current) use of insulin; I25.10 Atherosclerotic heart disease of native coronary artery without angina pectoris; E78.5 Hyperlipidemia, unspecified; E11.69 Type 2 diabetes mellitus with other specified complication; Z20.822 Contact with and (suspected) exposure to COVID-19
CPT/HCPCS: J2270; J7030; G0378